=== PATIENT | male | born 1995 | race Hispanic/Latino ===

== ENCOUNTER 2018-03-15 20:54 | Inpatient (IN) | payer SELFPAY ==
[2018-03-15 22:03] LABS: Absolute Lymphocytes (CBC) 2.7 K/uL (0.7-4.9); Absolute Monocytes 1.2 K/uL (0.1-1.3); Absolute Neutrophil 17.8 K/uL (1.8-8.0); Basophils % 1.3 % (0-1.3); Eosinophils % 0.6 % (0-4.4); Hematocrit 45.7 % (39.6-49.0); Lymphocytes % 12.2 % (15.3-44.8); MPV 10.5 fL (7.6-11.3); Monocytes % 5.6 % (3.3-12.3); RBC Red Blood Cell Count 5.72 M/uL (4.33-5.43)
[2018-03-15] MEDS ORDERED: NA CHLORIDE 0.9% 1,000 ML ONE ×2 (22:03→23:31)
[2018-03-15] MEDS ORDERED: FAMOTIDINE 20 MG/2 ML VIAL IV ONE (22:03)
[2018-03-15 22:18] LABS: Protime INR 1.15
[2018-03-15 22:32] LABS: ALT/SGPT 49 U/L (12-78); AST/SGOT 27 U/L (15-37); Albumin 2.7 g/dL (3.4-5.0); Alkaline Phosphatase 163 U/L (45-117); BUN Blood Urea Nitrogen 12 mg/dL (7-18); Bilirubin Direct 0.1 mg/dL (0-0.2); Bilirubin Total 0.5 mg/dL (0.2-1.0); Lipase 294 U/L (73-393); Magnesium 2.2 mg/dL (1.8-2.4); Potassium 4.3 mmol/L (3.5-5.1); Protein, Total 8.9 g/dL (6.4-8.2); Sodium Level 129 mmol/L (136-145); Troponin (Emerg Dept Use Only) < 0.02 ng/mL (0.0-0.045)
[2018-03-15 22:33] LABS: Bicarbonate 14 mmol/L (21-32); Glucose Level 418 mg/dL (74-106)
[2018-03-15 22:41] LABS: Blood Morphology Comment NOT SEEN (NOT SEEN); Platelet Estimate ADEQ
[2018-03-15 22:57] LABS: Urine Blood 2+ (NEG); Urine Glucose 2+ (NEG); Urine Protein 3+ (NEG)
[2018-03-15 23:17] LABS: Arterial Blood Carboxyhemoglob 1.3 % (0-1.5); Blood Gas Oxyhemoglobin 94.4 % (94-97); Blood O2 Saturation 97.1 % (92-98.5)
--- NOTE | 2018-03-15 23:54 | ER ---
Nurse's Notes [facility] Department Name: Vijay Law Age: 22 yrs Sex: Male : 1995 Arrival Date: 03/15/2018 Time: 20:55 Bed 14 Private MD: Diagnosis: Diabetic Ketoacidosis Presentation: 03/15 21:12 Presenting complaint: Patient states: Epigastric pain with N/V since Monday. aj Transition of care: patient was not received from another setting of care. Onset of symptoms was March 11, 2018. Risk Assessment: Do you want to hurt yourself or someone else? Patient reports no desire to harm self or others. Initial Sepsis Screen: Does the patient meet any 2 criteria? No. Patient's initial sepsis screen is negative. Does the patient have a suspected source of infection? No. Patient's initial sepsis screen is negative. Care prior to arrival: None. 21:12 Method Of Arrival: Ambulatory aj 21:12 Acuity: SUYAPA 3 aj Triage Assessment: 21:13 General: Appears in no apparent distress. comfortable, obese, Behavior is calm, aj cooperative, appropriate for age. Pain: Complains of pain in epigastric area. Neuro: Level of Consciousness is awake, alert, obeys commands, Oriented to person, place, time, situation, Appropriate for age. Respiratory: Airway is patent Trachea midline Respiratory effort is even, unlabored, Respiratory pattern is regular, symmetrical. GI: Abdomen is obese. Derm: Skin is intact, is healthy with good turgor, Skin is pink, warm \T\ dry. normal. Historical: - Allergies: 21:13 No Known Allergies; aj - Home Meds: 21:13 None [Active]; aj - PMHx: 21:13 None; aj - PSHx: 21:13 None; aj - Immunization history:: Adult Immunizations up to date. - Social history:: Smoking status: Patient/guardian denies using tobacco. - Ebola Screening: : Patient negative for fever greater than or equal to 101.5 degrees Fahrenheit, and additional compatible Ebola Virus Disease symptoms Patient denies exposure to infectious person Patient denies travel to an Ebola-affected area in the 21 days before illness onset No symptoms or risks identified at this time. Screenin:06 Abuse screen: Denies threats or abuse. Denies injuries from another. Nutritional rr5 screening: No deficits noted. On. Tuberculosis screening: No symptoms or risk factors identified. Fall Risk IV access (20 points). Total Garza Fall Scale indicates No Risk (0-24 pts). Assessment: 21:40 General: Appears in no apparent distress. comfortable, Behavior is calm, cooperative, rr5 appropriate for age. Pain: Complains of pain in epigastric area Pain does not radiate. Pain currently is 5 out of 10 on a pain scale. Quality of pain is described as aching, Pain began gradually, Is intermittent. 21:40 Neuro: Level of Consciousness is awake, alert, obeys commands, Oriented to person, rr5 place, time, situation, Appropriate for age. Cardiovascular: Capillary refill < 3 seconds Patient's skin is warm and dry. Respiratory: Airway is patent Respiratory effort is even, unlabored, Respiratory pattern is regular, symmetrical. GI: Bowel sounds present X 4 quads. Abd is soft and non tender X 4 quads. Reports upper abdominal pain, nausea, vomiting, epigastric pain. : No signs and/or symptoms were reported regarding the genitourinary system. EENT: No signs and/or symptoms were reported regarding the EENT system. Derm: Skin is intact, Skin temperature is warm. Musculoskeletal: Capillary refill < 3 seconds, Range of motion: intact in all extremities. 23:45 Reassessment: Patient appears in no apparent distress at this time. Patient and/or rr5 family updated on plan of care and expected duration. Pain level reassessed. informed the patient for the plan of admission and medications to be given. 03/16 00:30 Reassessment: Patient appears in no apparent distress at this time. Patient and/or rr5 family updated on plan of care and expected duration. Pain level reassessed. seen and examined by dr. jiménez with order and carried out. 01:30 Reassessment: Patient appears in no apparent distress at this time. Patient and/or rr5 family updated on plan of care and expected duration. Pain level reassessed. no complaints made for shifting to ICU bed 6 Patient states feeling better. Patient states symptoms have improved. Vital Signs: 03/15 21:13 BP 159 / 95; Pulse 136; Resp 20; Temp 98.4; Pulse Ox 98% on R/A; Weight 152.86 kg; aj Height 5 ft. 10 in. (177.80 cm); 22:00 BP 157 / 100; Pulse 124; Resp 20; Pulse Ox 99% ; rr5 23:00 BP 154 / 109; Pulse 112; Resp 21; Pulse Ox 98% ; rr5 03/16 00:00 BP 142 / 76; Pulse 112; Resp 16; Pulse Ox 99% ; rr5 01:00 BP 138 / 80; Pulse 116; Resp 20; Temp 97.9; Pulse Ox 100% ; rr5 03/15 21:13 Body Mass Index 48.35 (152.86 kg, 177.80 cm) ED Course: 03/15 20:55 Patient arrived in ED. am2 21:12 Triage completed. aj 21:13 Arm band placed on left wrist. Patient placed in an exam room. aj 21:16 Huber Quiroga NP is PHCP. pm1 21:16 Garrison Terry MD is Attending Physician. pm1 21:18 Abran Portillo, CECY is Primary Nurse. rr5 21:40 Patient has correct armband on for positive identification. Placed in gown. Bed in low rr5 position. Call light in reach. Side rails up X 1. Pulse ox on. NIBP on. 21:57 Radiology exam delayed due to lab results not completed at this time. (BUN/Creatinine). vm2 22:00 color television console monitor on. rr5 22:00 Inserted saline lock: 20 gauge in right forearm, using aseptic technique. Blood rr5 collected. 22:15 Radiology exam delayed due to lab results not completed at this time. (BUN/Creatinine). ny 22:18 Notified Nurse Practitioner and/or Physician Business Process Manager of a critical lab result(s), wbc fc of 22.2. 22:20 Radiology exam delayed due to lab results not completed at this time. (BUN/Creatinine). 2 22:32 XRAY Chest (1 view) In Process Unspecified. EDMS 22:32 Radiology exam delayed due to lab results not completed at this time. (BUN/Creatinine). 22:32 Notified Nurse Practitioner and/or Physician Business Process Manager of a critical lab result(s), fc bicarb of 14, glucose of 418. 22:38 US Abdomen Limited In Process Unspecified. EDMS 22:[address] via wheelchair. sj 22:54 CT completed. Patient tolerated procedure well. Patient moved back from CT. sj 22:54 CT Abd/Pelvis - W/Contrast: IV contrast only In Process Unspecified. EDMS 23:22 ABG Sent. rr5 23:50 Amarjit Soliman MD is Hospitalizing Provider. pm1 03/16 01:15 No provider procedures requiring assistance completed. Patient admitted, IV remains in rr5 place. intact. Administered Medications: 03/15 22:00 Drug: NS 0.9% 1000 ml Route: IV; Rate: 1000 ml; Site: right forearm; rr5 23:30 Follow up: Response: No adverse reaction; IV Status: Completed infusion; IV Intake: rr5 1000ml 22:01 Drug: Pepcid 20 mg Route: IVP; Site: right forearm; rr5 23:12 Follow up: Response: No adverse reaction rr5 23:40 Drug: NS 0.9% 1000 ml Route: IV; Rate: 1000 ml; Site: right forearm; rr5 03/16 00:40 Follow up: Response: No adverse reaction; IV Status: Completed infusion; IV Intake: rr5 1000ml 00:00 Drug: Insulin Drip - (Insulin Regular Human 100 units, NS 0.9% 100 ml) {Co-Signature: rr5 jd3 (Sharath Quinn RN).} {Note: CBG 318 mg/dl.} Route: IV; Rate: 5 units/hr; Site: right forearm; 01:16 Follow up: Response: No adverse reaction; IV Status: Completed infusion; Infusion rr5 continued upon admission 00:40 Drug: D5-1/2 NS 1000 ml Route: IV; Rate: 150 ml/hr; Site: right forearm; rr5 01:15 Follow up: Response: No adverse reaction; IV Status: Infusion continued upon admission rr5 Point of Care Testing: Blood Glucose: 00:00 Blood Glucose: 318 mg/dL; rr5 00:30 Blood Glucose: 308 mg/dL; rr5 01:00 Blood Glucose: 288 mg/dL; rr5 00:30 informed with order made and carried out. rr5 Ranges: Intake: 03/15 23:30 IV: 1000ml; Total: 1000ml. rr5 03/16 00:40 IV: 1000ml; Total: 2000ml. rr5 01:40 urine output 4x voided freely from 2112 to 139H rr5 Outcome: 03/15 23:53 Decision to Hospitalize by Provider. pm1 03/16 01:10 Admitted to ICU accompanied by nurse, accompanied by tech, via stretcher, room 6, on rr5 monitor, with chart, Report called to shu SAM 01:30 Condition: stable rr5 01:30 Instructed on the need for admit. 01:44 Patient left the ED. rr5 Signatures: Dispatcher [employer] EDMS Tamika Beasley, CECY RN Daphne Watkins Felicia, RN RN Huber Quiroga NP [employer] pm1 Spenser Mendez Amanda am2 Emily Rivera Raymond, RN RN rr5 Sharath Quinn RN jd3 Corrections: (The following items were deleted from the chart) 00:40 03/15 00:40 NS 0.9% 1000 ml IV at 1000 ml in right forearm rr5 rr5
--- NOTE | 2018-03-15 23:55 | EDPHYS ---
Physician Documentation [facility] Name: Vijay Law Age: 22 yrs Sex: Male : 1995 Arrival Date: 03/15/2018 Time: 20:55 Bed 14 Private MD: ED Physician Garrison Teryr HPI: 03/15 22:00 This 22 yrs old Male presents to ER via Ambulatory with complaints of pm1 Abdominal Pain, Chest Pain. 22:00 The patient presents with abdominal pain in the epigastric area. Onset: The pm1 symptoms/episode began/occurred 6 day(s) ago. The symptoms do not radiate. Associated signs and symptoms: Pertinent positives: Vomiting x 1 and diarrhea x 1 at onset of symptoms on Monday, Pertinent negatives: fever, shortness of breath. The symptoms are described as burning. Modifying factors: The symptoms are alleviated by nothing, the symptoms are aggravated by food. Severity of pain: in the emergency department the pain is actually worse. The patient has not experienced similar symptoms in the past. The patient has not recently seen a physician, and does not have an established primary care provider. Historical: - Allergies: 21:13 No Known Allergies; aj - Home Meds: 21:13 None [Active]; aj - PMHx: 21:13 None; aj - PSHx: 21:13 None; aj - Immunization history:: Adult Immunizations up to date. - Social history:: Smoking status: Patient/guardian denies using tobacco. - Ebola Screening: : Patient negative for fever greater than or equal to 101.5 degrees Fahrenheit, and additional compatible Ebola Virus Disease symptoms Patient denies exposure to infectious person Patient denies travel to an Ebola-affected area in the 21 days before illness onset No symptoms or risks identified at this time. ROS: 22:00 Constitutional: Negative for fever, chills, and weight loss, Eyes: Negative for injury, pm1 pain, redness, and discharge, ENT: Negative for injury, pain, and discharge, Neck: Negative for injury, pain, and swelling, Cardiovascular: Negative for chest pain, palpitations, and edema, Respiratory: Negative for shortness of breath, cough, wheezing, and pleuritic chest pain. 22:00 Back: Negative for injury and pain, : Negative for injury, bleeding, discharge, and swelling, MS/Extremity: Negative for injury and deformity, Skin: Negative for injury, rash, and discoloration, Neuro: Negative for headache, weakness, numbness, tingling, and seizure. 22:00 Abdomen/GI: Positive for abdominal pain, of the epigastric area, Negative for nausea, vomiting, and diarrhea. Exam: 22:00 Constitutional: This is a well developed, well nourished patient who is awake, alert, pm1 and in no acute distress. Head/Face: Normocephalic, atraumatic. Eyes: Pupils equal round and reactive to light, extra-ocular motions intact. Lids and lashes normal. Conjunctiva and sclera are non-icteric and not injected. Cornea within normal limits. Periorbital areas with no swelling, redness, or edema. ENT: Nares patent. No nasal discharge, no septal abnormalities noted. Tympanic membranes are normal and external auditory canals are clear. Oropharynx with no redness, swelling, or masses, exudates, or evidence of obstruction, uvula midline. Mucous membranes moist. Neck: Trachea midline, no thyromegaly or masses palpated, and no cervical lymphadenopathy. Supple, full range of motion without nuchal rigidity, or vertebral point tenderness. No Meningismus. Chest/axilla: Normal chest wall appearance and motion. Nontender with no deformity. No lesions are appreciated. Respiratory: Lungs have equal breath sounds bilaterally, clear to auscultation and percussion. No rales, rhonchi or wheezes noted. No increased work of breathing, no retractions or nasal flaring. 22:00 Back: No spinal tenderness. No costovertebral tenderness. Full range of motion. 22:00 Skin: Warm, dry with normal turgor. Normal color with no rashes, no lesions, and no evidence of cellulitis. MS/ Extremity: Pulses equal, no cyanosis. Neurovascular intact. Full, normal range of motion. 22:00 Cardiovascular: Rate: tachycardic, Rhythm: regular, Pulses: no pulse deficits are appreciated, Heart sounds: normal, normal S1and S2, no S3 or S4, no murmur, no rub, no gallop, Edema: is not appreciated. 22:00 Abdomen/GI: Inspection: obese Bowel sounds: Palpation: soft, mild abdominal tenderness, in the epigastric area, mass, is not appreciated, rebound tenderness, is not appreciated. 22:00 Neuro: Orientation: is normal, Motor: is normal. Vital Signs: 21:13 BP 159 / 95; Pulse 136; Resp 20; Temp 98.4; Pulse Ox 98% on R/A; Weight 152.86 kg; aj Height 5 ft. 10 in. (177.80 cm); 22:00 BP 157 / 100; Pulse 124; Resp 20; Pulse Ox 99% ; rr5 23:00 BP 154 / 109; Pulse 112; Resp 21; Pulse Ox 98% ; rr5 03/16 00:00 BP 142 / 76; Pulse 112; Resp 16; Pulse Ox 99% ; rr5 01:00 BP 138 / 80; Pulse 116; Resp 20; Temp 97.9; Pulse Ox 100% ; rr5 03/15 21:13 Body Mass Index 48.35 (152.86 kg, 177.80 cm) aj MDM: 03/15 21:18 Patient medically screened. pm1 21:39 Data reviewed: vital signs. Data interpreted: Pulse oximetry: on room air is 98 %. pm1 Interpretation: normal. 23:43 Counseling: I had a detailed discussion with the patient and/or guardian regarding: the pm1 historical points, exam findings, and any diagnostic results supporting the discharge/admit diagnosis, lab results, radiology results, the need for further work-up and treatment in the hospital. 03/15 21:41 Order name: Basic Metabolic Panel; Complete Time: 22:44 pm1 03/15 21:41 Order name: CBC with Diff; Complete Time: 22:44 pm1 03/15 21:41 Order name: LFT's; Complete Time: 22:44 pm03/15 21:41 Order name: Magnesium; Complete Time: 22:44 pm03/15 21:41 Order name: PT-INR; Complete Time: 22:20 pm1 03/15 21:41 Order name: Troponin (emerg Dept Use Only); Complete Time: 22:44 pm03/15 21:41 Order name: XRAY Chest (1 view) pm03/15 21:41 Order name: Lipase; Complete Time: 22:44 pm1 03/15 21:41 Order name: CT Abd/Pelvis - W/Contrast: IV contrast only pm1 03/15 22:05 Order name: Urine Dipstick--Ancillary (enter results); Complete Time: 23:12 gm 03/15 22:19 Order name: Manual Differential; Complete Time: 22:44 EDMS 03/15 22:20 Order name: US Abdomen Limited pm1 03/15 22:42 Order name: ABG; Complete Time: 23:40 fc 03/15 23:12 Order name: Ketone, Serum; Complete Time: 03:22 pm1 03/15 21:41 Order name: EKG; Complete Time: 21:43 pm1 03/15 21:41 Order name: Cardiac monitoring; Complete Time: 22:04 pm1 03/15 21:41 Order name: EKG - Nurse/Tech; Complete Time: 22:04 pm1 03/15 21:41 Order name: IV Saline Lock; Complete Time: 22:04 pm1 03/15 21:41 Order name: Labs collected and sent; Complete Time: 22:04 pm1 03/15 21:41 Order name: O2 Per Protocol; Complete Time: 22:04 pm1 03/15 21:41 Order name: O2 Sat Monitoring; Complete Time: 22:05 pm1 Administered Medications: 22:00 Drug: NS 0.9% 1000 ml Route: IV; Rate: 1000 ml; Site: right forearm; rr5 23:30 Follow up: Response: No adverse reaction; IV Status: Completed infusion; IV Intake: rr5 1000ml 22:01 Drug: Pepcid 20 mg Route: IVP; Site: right forearm; rr5 23:12 Follow up: Response: No adverse reaction rr5 23:40 Drug: NS 0.9% 1000 ml Route: IV; Rate: 1000 ml; Site: right forearm; rr5 03/16 00:40 Follow up: Response: No adverse reaction; IV Status: Completed infusion; IV Intake: rr5 1000ml 00:00 Drug: Insulin Drip - (Insulin Regular Human 100 units, NS 0.9% 100 ml) {Co-Signature: rr5 jd3 (Sharath Quinn RN).} {Note: CBG 318 mg/dl.} Route: IV; Rate: 5 units/hr; Site: right forearm; 01:16 Follow up: Response: No adverse reaction; IV Status: Completed infusion; Infusion rr5 continued upon admission 00:40 Drug: D5-1/2 NS 1000 ml Route: IV; Rate: 150 ml/hr; Site: right forearm; rr5 01:15 Follow up: Response: No adverse reaction; IV Status: Infusion continued upon admission rr5 Point of Care Testing: Blood Glucose: 00:00 Blood Glucose: 318 mg/dL; rr5 00:30 Blood Glucose: 308 mg/dL; rr5 01:00 Blood Glucose: 288 mg/dL; rr5 00:30 informed with order made and carried out. rr5 Ranges: Critical Glucose Levels:Adult <50 mg/dl or >400 mg/dl <40 mg/dl or >180 mg/dl Disposition: 02:07 Co-signature as Attending Physician, Garrison Terry MD I agree with the assessment and wa plan of care. Disposition: 03/15/18 23:53 Hospitalization ordered by Amarjit Soliman for Inpatient Admission. Preliminary diagnosis is Diabetic Ketoacidosis. - Bed requested for Intensive Care Unit. - Status is Inpatient Admission. rr5 - Condition is Stable. - Problem is new. - Symptoms have improved. UTI on Admission? No Signatures: Dispatcher [employer] EDMS Ksenia Duckworth RN RN kl Myers, Amanda, RN RN aj Marinas, Patrick, NP [employer] pm1 Garrison Terry MD MD wa Roque, Raymond, RN RN rr5 Sharath Quinn RN jd3 Corrections: (The following items were deleted from the chart) 03/15 23:54 23:53 Hospitalization Ordered by Amarjit Soliman MD for Inpatient Admission. Preliminary pm1 diagnosis is Diabetic Ketoacidosis. Bed requested for Telemetry/MedSurg (Inpatient). Status is Inpatient Admission. Condition is Stable. Problem is new. Symptoms have improved. UTI on Admission? No. pm1 03/16 00:44 03/15 23:54 03/15/2018 23:53 Hospitalization Ordered by Amarjit Soliman MD for Inpatient kl Admission. Preliminary diagnosis is Diabetic Ketoacidosis. Bed requested for Intensive Care Unit. Status is Inpatient Admission. Condition is Stable. Problem is new. Symptoms have improved. UTI on Admission? No. pm1 03/16 01:44 00:44 03/15/2018 23:53 Hospitalization Ordered by Amarjit Soliman MD for Inpatient rr5 Admission. Preliminary diagnosis is Diabetic Ketoacidosis. Bed requested for Intensive Care Unit. Status is Inpatient Admission. Condition is Stable. Problem is new. Symptoms have improved. UTI on Admission? No. kl
[2018-03-16] MEDS ORDERED: INSULIN -REGULAR HUMAN 50 UNIT/0.5 ML ML ONE (00:01)
[2018-03-16] MEDS ORDERED: NA CHLORIDE 0.9% 100 ML IV ONE (00:02)
[2018-03-16] MEDS ORDERED: D5 0.45 NS 1,000 ML IV ONE (00:38)
[2018-03-16] MEDS: D5 0.45 NS 1,000 ML IV SCH ×4 (01:25→18:59)
[2018-03-16] MEDS ORDERED: ONDANSETRON 4 MG/2 ML VIAL IV PRN (01:25)
[2018-03-16 02:44] LABS: BUN Blood Urea Nitrogen 11 mg/dL (7-18); Bicarbonate 15 mmol/L (21-32); Glucose Level 310 mg/dL (74-106); Potassium 3.8 mmol/L (3.5-5.1); Sodium Level 135 mmol/L (136-145)
--- NOTE | 2018-03-16 03:50 | P.HP ---
Certification for Inpatient Patient admitted to: Inpatient With expected LOS: >2 Midnights Practitioner: I am a practitioner with admitting privileges, knowledge of patient current condition, hospital course, and medical plan of care. Services: Services provided to patient in accordance with Admission requirements found in Title 42 Section 412.3 of the Code of Federal Regulations Patient History Date of Service: 03/16/18 Reason for admission: DKA History of Present Illness: Mr Law is a 22 years old male with history of morbid obesity, uncontrolled diabetes mellitus, admitted 1 year ago due to DKA, not on current diabetic treatment, who start about 4 days ago with abdominal pain, localized on epigastric area, 6/10 of intensity, no radiated. Since this morning, his symptoms got worse, and he start having nausea, vomiting and diarrhea associated with the pain. He denied fever or chills. Lab work remarkable for hyperglycemia, hyponatremia, low bicarb, ABG shows metabolic acidosis with anion gap of 18, consitent with DKA. He denied chest pain or SOB. CT abd/pelvis report acute pancreatitis, however, lipase in normal. Allergies No Known Allergies Allergy (Verified 02/23/17 17:46) Home medications list reviewed: Yes Home Medications: NK [No Home Meds] 03/16/18 - Past Medical/Surgical History Has patient received pneumonia vaccine in the past: No Diabetic: Yes -: hypothyroid, has not been on medicine for 4 1/2 years -: was hospitalized 02/2017 for hyperglycemia, quit taking insulin per his MD -: DM II -: obesity Past Surgical History: Reviewed- Non-Contributory - Family History Family History: Reviewed- Non-Contributory - Social History Smoking Status: Never smoker Alcohol use: No CD- Drugs: No Caffeine use: Yes Place of Residence: Home Review of Systems 10-point ROS is otherwise unremarkable Physical Examination - Vital Signs Temperature: 97.9 F Blood Pressure: 137/85 Pulse: 120 Respirations: 25 Pulse Ox (%): 96 - Physical Exam General: Alert, In no apparent distress HEENT: Atraumatic, PERRLA, Mucous membr. moist/pink, EOMI, Sclerae nonicteric Neck: Supple, 2+ carotid pulse no bruit, No LAD, Without JVD or thyroid abnormality Respiratory: Clear to auscultation bilaterally, Normal air movement Cardiovascular: Regular rate/rhythm, Normal S1 S2 Gastrointestinal: Normal bowel sounds, No tenderness Musculoskeletal: No tenderness Integumentary: No rashes Neurological: Normal speech, Normal strength at 5/5 x4 extr, Normal tone, Normal affect Lymphatics: No axilla or inguinal lymphadenopathy - Studies Laboratory Data (last 24 hrs) 03/15/18 21:50: PT 13.6 H, INR 1.15 03/15/18 21:50: WBC 22.2 H*, Hgb 14.5, Hct 45.7, Plt Count 315 03/15/18 21:50: Sodium 129 L, Potassium 4.3, BUN 12, Creatinine 0.97, Glucose 418 H*, Magnesium 2.2, Total Bilirubin 0.5, AST 27, ALT 49, Alkaline Phosphatase 163 H, Lipase 294 Assessment and Plan - Problems (Diagnosis) (1) Diabetes mellitus Current Visit: Yes Status: Acute Qualifiers: Diabetes mellitus type: type 2 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 Diabetes mellitus complication status: with ketoacidosis Diabetes mellitus complication detail: without coma Qualified Code(s): E11.10 - Type 2 diabetes mellitus with ketoacidosis without coma (2) Morbid obesity Current Visit: Yes Status: Acute (3) Hyponatremia Current Visit: Yes Status: Acute (4) Diabetic ketoacidosis Onset Date: 02/24/17 Current Visit: No Status: Acute Qualifiers: Diabetes mellitus type: type 2 Diabetes mellitus complication detail: without coma Qualified Code(s): E11.10 - Type 2 diabetes mellitus with ketoacidosis without coma - Plan The patient will be admitted to the hospital due to DKA. He is not compliant with diabetic treatment. Possible underlying pancreatitis according to CT abd/ pelvis report, however, normal Lipase. Will check pancreatic enzymes again in AM. Continue IV fluids and IV insulin per DKA protocol. Check Hgba1c. Consult dietitian. - Advance Directives Does patient have a Living Will: No Does patient have a Durable POA for Healthcare: No - Code Status/Comfort Care Code Status Assessed: Yes Code Status: Full Code
[2018-03-16 05:52] LABS: Urine Appearance CLEAR; Urine Blood TRACE (NEG); Urine Color YELLOW; Urine Glucose 3+ (NEG); Urine Protein 1+ (NEG); Urine Specific Gravity >=1.030 (1.005-1.030); Urine Urobilinogen 0.2 mg/dL (0.2-1.0); Urine pH 5.5 (5.0-7.0)
[2018-03-16 06:03] LABS: Urine Bilirubin NEGATIVE (NEG); Urine Microscopic Reflex ORDER UMIC
[2018-03-16 06:09] LABS: Urine Coarse Granular Casts 0-5 /LPF (NONE SEEN)
[2018-03-16 06:10] LABS: Urine Bacteria <20 /HPF (NONE SEEN); Urine RBC <5 /HPF (NONE SEEN)
[2018-03-16 06:11] LABS: Urine Culture Reflex Order NOT NEEDED
[2018-03-16 06:44] LABS: Amylase Level 27 U/L (25-115); BUN Blood Urea Nitrogen 8 mg/dL (7-18); Bicarbonate 18 mmol/L (21-32); Glucose Level 274 mg/dL (74-106); HDL Cholesterol 11 mg/dL (40-60); LDL Cholesterol, Calculated ND (<130); Lipase 280 U/L (73-393); Potassium 3.7 mmol/L (3.5-5.1); Sodium Level 135 mmol/L (136-145)
[2018-03-16 06:59] LABS: LDL, Direct 94 mg/dL (100-129)
[2018-03-16] MEDS ORDERED: HYDRALAZINE HCL 20 MG/ML VIAL IV PRN (07:11)
--- NOTE | 2018-03-16 07:45 | RAD REPORT ---
EXAM DESCRIPTION: CT - Abdomen Pelvis W Contrast - 03/15/2018 10:54 pm CLINICAL HISTORY: Abdominal pain/epigastric pain with vomiting COMPARISON: none. TECHNIQUE: Computed axial tomography of the abdomen pelvis was obtained. 100 cc Isovue-300 was admin istered intravenously. Oral contrast was not requested which limits evaluation of bowel. A preliminary report generated by [employer] radiologic and review prior to dictation All CT scans are performed using dose optimization technique as appropriate and may include automated exposure control or mA/KV adjustment according to patient size. FINDINGS: Liver is mildly enlarged with fatty infiltration Spleen, adrenals and kidneys appear unremarkable. The pancreas is normal size. Mildly diminished density is seen within the pancreatic body. Moderate s tranding is present within the peripancreatic fat. Stranding extends into the greater omentum. Pseudo cyst is not seen. There is no evidence of diverticulitis. Appendix is normal Small umbilical hernia IMPRESSION: Moderate pancreatitis
--- NOTE | 2018-03-16 07:46 | RAD REPORT ---
EXAM DESCRIPTION: Karri Single View03/15/2018 10:32 pm CLINICAL HISTORY: Chest pain COMPARISON: none FINDINGS: The lungs appear clear of acute infiltrate. The heart is normal size IMPRESSION: No acute abnormalities displayed
--- NOTE | 2018-03-16 07:47 | RAD REPORT ---
EXAM DESCRIPTION: US - Abdomen Exam Limited - 03/15/2018 10:39 pm CLINICAL HISTORY: Abdominal pain. COMPARISON: None. FINDINGS: The examination is somewhat limited secondary to body habitus The gallbladder wall is not thickened. A gallstone is not seen. The biliary tree is normal caliber. IMPRESSION: No gross gallbladder abnormality is displayed
[2018-03-16] MEDS: ENOXAPARIN 40 MG/0.4 ML SQ SCH (08:05)
--- NOTE | 2018-03-16 09:21 | P.PN ---
Subjective Date of Service: 03/16/18 Primary Care Provider: none Chief Complaint: DKA Subjective: Improving (Patient doing better. No significant abdominal pain, nausea and vomiting. Patient on insulin drip.) Physical Examination - Vital Signs Temperature: 98.1 F Blood Pressure: 133/88 Pulse: 110 Respirations: 22 Pulse Ox (%): 96 - Physical Exam General: Alert, In no apparent distress, Oriented x3, Cooperative HEENT: Atraumatic Neck: Supple Respiratory: Clear to auscultation bilaterally, Normal air movement Cardiovascular: Normal pulses, Regular rate/rhythm Gastrointestinal: Normal bowel sounds, Soft and benign, Non-distended, No tenderness, No masses, No rebound, No guarding Musculoskeletal: No erythema, No tenderness, No warmth Integumentary: No tenderness/swelling, No erythema, No warmth, No cyanosis Neurological: Normal speech, Normal strength at 5/5 x4 extr, Normal tone, Normal affect - Studies Laboratory Data (last 24 hrs) 03/15/18 21:50: PT 13.6 H, INR 1.15 03/15/18 21:50: WBC 22.2 H*, Hgb 14.5, Hct 45.7, Plt Count 315 03/15/18 21:50: Sodium 129 L, Potassium 4.3, BUN 12, Creatinine 0.97, Glucose 418 H*, Magnesium 2.2, Total Bilirubin 0.5, AST 27, ALT 49, Alkaline Phosphatase 163 H, Lipase 294 Medications List Reviewed: Yes Assessment & Plan Discharge Plan: Home Plan to discharge in: 24 Hours Physician Review Additional Text: Impression: Diabetic ketoacidosis with history of type 1 diabetes with noncompliance, A1c 12.1 Epigastric pain, nausea and vomiting secondary to acute Pancreatitis likely related to hypertriglyceridemia Obesity, BMI 49 Hyponatremia likely from dehydration Plan: Diabetic ketoacidosis with history of type 1 diabetes with noncompliance, A1c 12.1: Will continue with insulin drip. Will transition to subcu insulin once gap as close. Will continue with IV fluids. Will continue monitor closely. Patient reports noncompliance with insulin. Will have social media intern help with finding PCP for the patient. Will also have social media intern help in providing patient assistance program information so that the patient can continue with insulin at discharge. Will continue to reassess. Will monitor electrolytes closely. Anticipate discharge likely tomorrow. Epigastric pain, nausea and vomiting secondary to acute Pancreatitis likely related to hypertriglyceridemia: Lipase levels within normal range. CT scan and abdominal ultrasound reviewed. Patient without any significant abdominal pain, nausea and vomiting. Will recheck lipid panel at noontime. If significantly improved then will transition to subcu insulin. Patient will require fish oil and fenofibrate at discharge. Obesity, BMI 49: Will continue to address lifestyle modification education. Hyponatremia likely from dehydration: This has improved, will continue with IV fluids. Time Spent Managing Pts Care (In Minutes): 55
--- NOTE | 2018-03-16 09:39 | EKG ---
Test Date: 2018-03-15 Test Time: 21:57:47 Refinery Pipeline Operator: AER MEASUREMENT RESULTS: Intervals: Rate: 121 VT: 128 QRSD: 86 QT: 324 QTc: 460 [place]: P: 47 VT: 128 QRS: 29 T: 40 INTERPRETIVE STATEMENTS: Sinus tachycardia Otherwise normal ECG No previous ECG available for comparison Electronically Signed On 03-16-18 09:38:14 NATURAL SCIENCES PROFESSOR by Lan Summers
[2018-03-16 10:14] LABS: Absolute Monocytes 1.3 K/uL (0.1-1.3); Absolute Neutrophil 12.6 K/uL (1.8-8.0); Basophils % 1.4 % (0-1.3); Eosinophils % 2.4 % (0-4.4); Hematocrit 41.8 % (39.6-49.0); MPV 10.3 fL (7.6-11.3); Monocytes % 7.3 % (3.3-12.3); RBC Red Blood Cell Count 5.34 M/uL (4.33-5.43)
[2018-03-16] MEDS: NA CHLORIDE 0.9% 1,000 ML IV SCH ×3 (10:24→21:20)
[2018-03-16] MEDS: FAMOTIDINE 20 MG/2 ML VIAL IV SCH ×2 (10:25→20:49)
[2018-03-16 10:39] LABS: BUN Blood Urea Nitrogen 8 mg/dL (7-18); Bicarbonate 20 mmol/L (21-32); Glucose Level 206 mg/dL (74-106); Potassium 3.4 mmol/L (3.5-5.1); Sodium Level 136 mmol/L (136-145)
[2018-03-16 12:39] LABS: HDL Cholesterol 11 mg/dL (40-60); LDL Cholesterol, Calculated ND (<130)
[2018-03-16] MEDS ORDERED: KCL 20 MEQ/100 mL IVPB 20 MEQ/100 ML BAG IV SCH ×2 (13:00→18:00)
[2018-03-16 13:03] LABS: LDL, Direct 110 mg/dL (100-129)
[2018-03-16] MEDS: INSULIN -REGULAR HUMAN 100 UNIT in NA CHLORIDE 0.9% 100 ML IV SCH (14:23)
[2018-03-16 19:07] LABS: BUN Blood Urea Nitrogen 6 mg/dL (7-18); Bicarbonate 20 mmol/L (21-32); Glucose Level 252 mg/dL (74-106); HDL Cholesterol 12 mg/dL (40-60); LDL Cholesterol, Calculated ND (<130); Potassium 3.6 mmol/L (3.5-5.1); Sodium Level 136 mmol/L (136-145)
[2018-03-16 19:19] LABS: LDL, Direct 117 mg/dL (100-129)
[2018-03-17] MEDS: D5 0.45 NS 1,000 ML IV SCH (02:23)
[2018-03-17] MEDS: NA CHLORIDE 0.9% 1,000 ML IV SCH (04:00)
[2018-03-17] MEDS: INSULIN -REGULAR HUMAN 100 UNIT in NA CHLORIDE 0.9% 100 ML IV SCH (05:53)
[2018-03-17 06:23] LABS: Absolute Lymphocytes (CBC) 3.9 K/uL (0.7-4.9); Absolute Monocytes 1.3 K/uL (0.1-1.3); Absolute Neutrophil 11.2 K/uL (1.8-8.0); Basophils % 1.7 % (0-1.3); Eosinophils % 3.6 % (0-4.4); Hematocrit 38.9 % (39.6-49.0); Lymphocytes % 22.8 % (15.3-44.8); MPV 10.6 fL (7.6-11.3); Monocytes % 7.4 % (3.3-12.3); RBC Red Blood Cell Count 5.04 M/uL (4.33-5.43)
[2018-03-17 06:53] LABS: Amylase Level 54 U/L (25-115); HDL Cholesterol 14 mg/dL (40-60); LDL Cholesterol, Calculated ND (<130); Lipase 430 U/L (73-393)
[2018-03-17 06:59] LABS: Anisocytosis 1+; Blood Morphology Comment NOTED (NOT SEEN); Platelet Estimate ADEQ; Platelets, Giant FEW; Poikilocytosis 1+; Polychromasia 1+; Urine White Blood Cell Casts OK
[2018-03-17 07:25] LABS: LDL, Direct 134 mg/dL (100-129)
[2018-03-17] MEDS ORDERED: D50W 25 GM/50 ML SYRINGE IV PRN (07:34)
[2018-03-17] MEDS ORDERED: GLUCAGON 1 MG/VIAL IM PRN (07:34)
[2018-03-17 07:47] VITALS: BMI 48.9
[2018-03-17] MEDS: INSULIN GLARGINE 100 UNITS/ML SQ SCH (08:39)
[2018-03-17] MEDS: PANTOPRAZOLE 40MG TABLET PO SCH (08:39)
[2018-03-17] MEDS: ENOXAPARIN 40 MG/0.4 ML SQ SCH (08:39)
[2018-03-17] MEDS: FENOFIBRATE 48 MG TAB PO SCH (08:39)
[2018-03-17] MEDS: DOCOSAHEXANOIC AC/EPA 1000 MG PO SCH ×2 (08:43→20:58)
[2018-03-17] MEDS: NACHLORIDE 0.45% 1,000 ML IV SCH ×3 (08:46→20:58)
[2018-03-17] MEDS ORDERED: POTASSIUM CL SA 10 MEQ TAB PO ONE (09:00)
[2018-03-17] MEDS: INSULIN -REGULAR HUMAN 50 UNIT/0.5 ML ML SQ SCH ×4 (11:58→20:57)
--- NOTE | 2018-03-17 13:16 | P.PN ---
Subjective Date of Service: 03/17/18 Primary Care Provider: none Chief Complaint: DKA Subjective: Improving (Patient without abdominal pain, nausea and vomiting.) Physical Examination - Vital Signs Temperature: 97.6 F Blood Pressure: 139/89 Pulse: 109 Respirations: 18 Pulse Ox (%): 96 - Physical Exam General: Alert, In no apparent distress, Oriented x3, Cooperative HEENT: Atraumatic Neck: Supple Respiratory: Clear to auscultation bilaterally, Normal air movement Cardiovascular: Normal pulses, Regular rate/rhythm Gastrointestinal: Normal bowel sounds, Soft and benign, Non-distended, No tenderness, No masses, No rebound, No guarding Musculoskeletal: No erythema, No tenderness, No warmth Integumentary: No tenderness/swelling, No erythema, No warmth, No cyanosis Neurological: Normal speech, Normal strength at 5/5 x4 extr, Normal tone, Normal affect - Studies Medications List Reviewed: Yes Assessment & Plan Discharge Plan: Home Plan to discharge in: 24 Hours Physician Review Additional Text: Impression: Diabetic ketoacidosis with history of type 1 diabetes with noncompliance, A1c 12.1 Epigastric pain, nausea and vomiting secondary to acute Pancreatitis likely related to hypertriglyceridemia Obesity, BMI 49 Hyponatremia likely from dehydration Hypertension GERD Suspect obstructive sleep apnea Plan: Diabetic ketoacidosis with history of type 1 diabetes with noncompliance, A1c 12.1: Anion gap has closed. Patient improved. Will transition off insulin drip. Basal insulin-Lantus 20 units subcu to be started. Will place on a sliding scale. Will allow patient to eat. If significantly improved will transition patient from ICU to telemetry. Patient reports noncompliance with insulin in the past. Will have director social service help with finding PCP for the patient. Will also have director social service help in providing patient assistance program information so that the patient can continue with insulin at discharge. Anticipate discharge as early as tomorrow. I will turn the service over to Dr. Cardoza tomorrow. I will go over the plan of care with her. Epigastric pain, nausea and vomiting secondary to acute Pancreatitis likely related to hypertriglyceridemia: Triglyceride levels improved. Will start fish oil and fenofibrate. Will advance diet. This can be monitored closely as an outpatient. Obesity, BMI 49: Will continue to address lifestyle modification education. Hyponatremia likely from dehydration: This has improved, will continue with IV fluids and adjust. Hypertension: Will start low dose metoprolol. Will monitor and adjust appropriately. GERD: Will start medication-Protonix. Suspect obstructive sleep apnea: This can be further addressed as an outpatient. Patient will need sleep study. Time Spent Managing Pts Care (In Minutes): 55
[2018-03-17] MEDS: METOPROLOL TAR 25 MG TAB PO SCH (17:23)
[2018-03-18] MEDS: NACHLORIDE 0.45% 1,000 ML IV SCH ×2 (04:35→10:40)
[2018-03-18] MEDS: METOPROLOL TAR 25 MG TAB PO SCH (05:20)
[2018-03-18] MEDS: PANTOPRAZOLE 40MG TABLET PO SCH (05:20)
[2018-03-18 06:15] LABS: Absolute Lymphocytes (CBC) 4.1 K/uL (0.7-4.9); Absolute Monocytes 0.9 K/uL (0.1-1.3); Eosinophils % 3.5 % (0-4.4); Hematocrit 41.6 % (39.6-49.0); Lymphocytes % 30.1 % (15.3-44.8); Monocytes % 6.9 % (3.3-12.3); RBC Red Blood Cell Count 5.32 M/uL (4.33-5.43)
[2018-03-18 06:57] LABS: BUN Blood Urea Nitrogen 4 mg/dL (7-18); Bicarbonate 25 mmol/L (21-32); Glucose Level 205 mg/dL (74-106); Lipase 375 U/L (73-393); Sodium Level 138 mmol/L (136-145)
[2018-03-18 07:14] LABS: Potassium 2.9 mmol/L (3.5-5.1)
[2018-03-18] MEDS: ENOXAPARIN 40 MG/0.4 ML SQ SCH (09:11)
[2018-03-18] MEDS: FENOFIBRATE 48 MG TAB PO SCH (09:11)
[2018-03-18] MEDS: DOCOSAHEXANOIC AC/EPA 1000 MG PO SCH (09:11)
[2018-03-18] MEDS: INSULIN -REGULAR HUMAN 50 UNIT/0.5 ML ML SQ SCH ×2 (09:12→11:30)
[2018-03-18] MEDS: INSULIN GLARGINE 100 UNITS/ML SQ SCH (09:13)
[2018-03-18] MEDS: KCL 20 MEQ/100 mL IVPB 20 MEQ/100 ML BAG IV SCH ×2 (09:13→10:00)
[2018-03-18] MEDS ORDERED: POTASSIUM CL 40 MEQ in NA CHLORIDE 0.9% 500 ML IV SCH (11:00)
[2018-03-18] MEDS ORDERED: POTASSIUM CL SA 10 MEQ TAB PO ONE (12:15)
[2018-03-18 14:55] VITALS: O2SAT 95
--- NOTE | 2018-03-18 15:40 | P.DS ---
Admission Date: 03/16/18 Discharge Date: 03/18/18 Primary Care Provider: none Disposition: ROUTINE DISCHARGE Discharge Condition: GOOD Reason for Admission: DKA - Problems (1) Diabetic ketoacidosis Onset Date: 02/24/17 Current Visit: No Status: Acute Qualifiers: Diabetes mellitus type: type 2 Diabetes mellitus complication detail: without coma Qualified Code(s): E11.10 - Type 2 diabetes mellitus with ketoacidosis without coma (2) Diabetes mellitus Current Visit: Yes Status: Chronic Qualifiers: Diabetes mellitus type: type 2 Diabetes mellitus intermodal owner operator truck driver insulin use: without intermodal owner operator truck driver use Diabetes mellitus complication status: with ketoacidosis Diabetes mellitus complication detail: without coma Qualified Code(s): E11.10 - Type 2 diabetes mellitus with ketoacidosis without coma (3) Morbid obesity Current Visit: Yes Status: Chronic Brief History of Present Illness: Mr Law is a 22 years old male with history of morbid obesity, uncontrolled diabetes mellitus, admitted 1 year ago due to DKA, not on current diabetic treatment, who start about 4 days ago with abdominal pain, localized on epigastric area, 6/10 of intensity, no radiated. Since this morning, his symptoms got worse, and he start having nausea, vomiting and diarrhea associated with the pain. He denied fever or chills. Lab work remarkable for hyperglycemia, hyponatremia, low bicarb, ABG shows metabolic acidosis with anion gap of 18, consitent with DKA. He denied chest pain or SOB. CT abd/pelvis report acute pancreatitis, however, lipase in normal. Hospital Course: Overall during the hospital stay patient remained stable Patient was initially admitted to the hospital for BKA and was found to have acute pancreatitis as well. Patient was started on insulin drip and tolerating the drip well. Once the gap was closed and healing there is no acetone level noted in the urine. Insulin drip was discontinued and patient was transitioned to a long-acting insulin. Patient did well overall here in the hospital. Patient then was switched over to 10 units of Lantus in the a.m. along with metformin 500 mg b.i.d.. Patient was asked to continue taking this at home when discharged from here. Patient also was asked to establish primary care provider that could manage his he diabetes. A1c was measured here which was elevated here in the hospital. Patient was also started on beta-yana along with cholesterol medication to help with hypertriglyceridemia. Patient demonstrate understanding and thus was discharged home under stable condition. Vital Signs/Physical Exam: Temp Pulse Resp BP Pulse Ox 97.4 F 103 H 16 130/72 96 03/18/18 12:00 03/18/18 12:00 03/18/18 12:00 03/18/18 12:00 03/18/18 12:00 General: Alert, In no apparent distress HEENT: Atraumatic, PERRLA, EOMI Neck: Supple, JVD not distended Respiratory: Clear to auscultation bilaterally, Normal air movement Cardiovascular: Regular rate/rhythm, Normal S1 S2 Gastrointestinal: Normal bowel sounds, No tenderness Musculoskeletal: No tenderness Integumentary: No rashes Neurological: Normal speech, Normal tone, Normal affect Lymphatics: No axilla or inguinal lymphadenopathy Laboratory Data at Discharge: WBC 13.7 K/uL (4.3-10.9) H D 03/18/18 05:57 Hgb 13.7 g/dL (13.6-17.9) 03/18/18 05:57 Hct 41.6 % (39.6-49.0) 03/18/18 05:57 Plt Count 317 K/uL (152-406) 03/18/18 05:57 PT 13.6 SECONDS (9.5-12.5) H 03/15/18 21:50 INR 1.15 03/15/18 21:50 Sodium 138 mmol/L (136-145) 03/18/18 05:57 Potassium 3.2 mmol/L (3.5-5.1) L 03/18/18 14:40 BUN 4 mg/dL (7-18) L 03/18/18 05:57 Creatinine 0.67 mg/dL (0.55-1.3) 03/18/18 05:57 Glucose 205 mg/dL (74-106) H 03/18/18 05:57 Magnesium 2.0 mg/dL (1.8-2.4) 03/18/18 05:57 Total Bilirubin 0.5 mg/dL (0.2-1.0) 03/15/18 21:50 AST 27 U/L (15-37) 03/15/18 21:50 ALT 49 U/L (12-78) 03/15/18 21:50 Alkaline Phosphatase 163 U/L (45-117) H 03/15/18 21:50 Triglycerides 768 mg/dL (<150) H 03/17/18 05:57 Cholesterol 264 mg/dL (<200) H 03/17/18 05:57 LDL Cholesterol Direct 134 mg/dL (100-129) H 03/17/18 05:57 HDL Cholesterol 14 mg/dL (40-60) L 03/17/18 05:57 Cholesterol/HDL Ratio 18.86 03/17/18 05:57 Amylase 54 U/L (25-115) 03/17/18 05:57 Lipase 375 U/L (73-393) 03/18/18 05:57 Home Medications: Docosahexanoic AC/Epa [Fish Oil 1,000 MG*] 2,000 mg PO BID #60 cap 03/18/18 Fenofibrate [Tricor*] 48 mg PO DAILY #30 tab 03/18/18 Insulin Glargine Human [Lantus*] 10 units SQ DAILY WITH BREAKFAST #10 ml Metformin HCl 500 mg PO BID #60 tablet 03/18/18 Metoprolol Tartrate [Lopressor*] 12.5 mg PO BID 6AM 6PM #60 tab 03/18/18 New Medications: Docosahexanoic AC/Epa [Fish Oil 1,000 MG*] 2,000 mg PO BID #60 cap Fenofibrate [Tricor*] 48 mg PO DAILY #30 tab Insulin Glargine Human [Lantus*] 10 units SQ DAILY WITH BREAKFAST #10 ml Metformin HCl 500 mg PO BID #60 tablet Metoprolol Tartrate [Lopressor*] 12.5 mg PO BID 6AM 6PM #60 tab Patient Discharge Instructions: Please f.u with PCP 1 to 2 week post discharge. New medication. Metformin 500mg BID. Lantus 10units in AM daily. Metoprolol. Fish oil. Fenofibrate Diet: Regular Activity: Ad tulio Followup: Jono Cardoza, [ACTIVE - CAN ADMIT] - 1 Week
[2018-03-18 16:46] VITALS: BP 133/85; TEMP 96.9
== END 2018-03-18 17:00 | disposition home or self-care (01) | DRG 637 ==
LOC: ER 20:54 → ERHOLD 03-16 00:32 → 3RD-ICU 03-16 01:16 → 4TH 03-17 17:45
PROVIDERS: ADMIT Internal Medicine; ATTEND Family Medicine
DX: E10.10 Type 1 diabetes mellitus with ketoacidosis without coma (principal); K85.90 Acute pancreatitis without necrosis or infection, unspecified; E87.1 Hypo-osmolality and hyponatremia; E87.2 Acidosis; E66.01 Morbid (severe) obesity due to excess calories; Z91.14 Patient's other noncompliance with medication regimen; E78.1 Pure hyperglyceridemia; E86.0 Dehydration; R11.2 Nausea with vomiting, unspecified; E10.65 Type 1 diabetes mellitus with hyperglycemia; I10 Essential (primary) hypertension; K21.9 Gastro-esophageal reflux disease without esophagitis; G47.33 Obstructive sleep apnea (adult) (pediatric); Z79.84 Long term (current) use of oral hypoglycemic drugs; Z79.4 Long term (current) use of insulin
CPT/HCPCS: 36415; 71045; 74177; 76705; 80048; 80061; 80076; 81003; 81015; 82010; 82150; 82805; 82962; 83036; 83690; 83735; 84132; 84145; 84484; 85025; 85610; 87040; 93005; 96361; 96365; 96375; 99285; J1650; J7030; Q9967

== ENCOUNTER 2019-09-18 13:11 | Emergency (ER) | payer SELFPAY ==
[2019-09-18] MEDS ORDERED: NA CHLORIDE 0.9% 1,000 ML ONE ×2 (14:29→15:19)
[2019-09-18] MEDS ORDERED: INSULIN -REGULAR HUMAN 50 UNIT/0.5 ML ML ONE ×3 (14:29→17:20)
[2019-09-18 14:46] LABS: BUN Blood Urea Nitrogen 9 mg/dL (7-18); Bicarbonate 21 mmol/L (21-32); Glucose Level 357 mg/dL (74-106); Sodium Level 138 mmol/L (136-145)
[2019-09-18 14:47] LABS: Potassium 4.1 mmol/L (3.5-5.1)
[2019-09-18 14:49] LABS: Arterial Blood Carboxyhemoglob 0.9 % (0-1.5); Blood Gas Oxyhemoglobin 90.9 % (94-97); Blood O2 Saturation 94.4 % (92-98.5)
[2019-09-18 15:41] LABS: Absolute Lymphocytes (CBC) 4.1 K/uL (0.7-4.9); Basophils % 0.8 % (0-1.3); Hematocrit 46.7 % (39.6-49.0); Lymphocytes % 32.7 % (15.3-44.8); MPV 11.8 fL (7.6-11.3)
[2019-09-18 17:01] LABS: BUN Blood Urea Nitrogen 8 mg/dL (7-18); Bicarbonate 20 mmol/L (21-32); Glucose Level 308 mg/dL (74-106); Sodium Level 141 mmol/L (136-145)
[2019-09-18 17:02] LABS: Potassium 3.8 mmol/L (3.5-5.1)
--- NOTE | 2019-09-18 17:32 | ER ---
Nurse's Notes [facility] Name: Vijay Law Age: 24 yrs Sex: Male : 1995 Arrival Date: 09/18/2019 Time: 13:16 Bed 5 Private MD: Diagnosis: Hyperglycemia, unspecified;Dehydration Presentation: 09/17 13:24 Chief complaint: Patient states: IDDM diabetic, hasn't taken insulin in almost 2 years. ca1 Reports thyroid issues. Now, c/o increased thirst and urination, fatigued. Coronavirus screen: Proceed with normal triage. Patient denies a cough. Patient denies shortness of breath or difficulty breathing. Patient denies measured and/or subjective temperature greater than 100.4F prior to today's visit. Patient denies travel on a cruise ship or to a country the [facility] currently lists as an affected area. Patient denies contact with known and/or suspected case of COVID-19. Ebola Screen: Patient negative for fever greater than or equal to 101.5 degrees Fahrenheit, and additional compatible Ebola Virus Disease symptoms Patient denies exposure to infectious person. Patient denies travel to an Ebola-affected area in the 21 days before illness onset. No symptoms or risks identified at this time. Initial Sepsis Screen: Does the patient meet any 2 criteria? No. Patient's initial sepsis screen is negative. Does the patient have a suspected source of infection? No. Patient's initial sepsis screen is negative. Risk Assessment: Do you want to hurt yourself or someone else? Patient reports no desire to harm self or others. Onset of symptoms was September 18, 2019. 13:24 Method Of Arrival: Ambulatory ca1 13:24 Acuity: SUYAPA 2 ca1 Historical: - Allergies: 13:27 No Known Allergies; ca1 - Home Meds: 13:27 None [Active]; ca1 - PMHx: 13:27 Diabetes - IDDM; Thyroid problem; ca1 - PSHx: 13:27 None; ca1 - Immunization history:: Adult Immunizations up to date. - Social history:: Smoking status: Patient denies any tobacco usage or history of. - Family history:: not pertinent. - Hospitalizations: : No recent hospitalization is reported. Screenin:10 Abuse screen: Denies threats or abuse. Nutritional screening: No deficits noted. aa5 Tuberculosis screening: No symptoms or risk factors identified. Fall Risk None identified. Assessment: 14:10 General: Appears comfortable, Behavior is calm, cooperative. Pain: Denies pain. Neuro: aa5 Level of Consciousness is awake, alert, obeys commands, Oriented to person, place, time, situation. Cardiovascular: Heart tones S1 S2 present Rhythm is regular. Respiratory: Airway is patent Respiratory effort is even, unlabored, Respiratory pattern is regular, symmetrical, Denies cough, shortness of breath. GI: Abdomen is obese, Bowel sounds present X 4 quads. Abd is soft and non tender X 4 quads. Patient currently denies diarrhea, nausea, vomiting. : No signs and/or symptoms were reported regarding the genitourinary system. EENT: No signs and/or symptoms were reported regarding the EENT system. Derm: Skin is pink, warm \T\ dry. Musculoskeletal: Range of motion: intact in all extremities. 14:58 Reassessment: ABG completed by RT . aa5 16:36 Reassessment: Patient is alert, oriented x 3, equal unlabored respirations, skin aa5 warm/dry/pink. Repeat chem 7 drawn and sent to lab . 17:45 Reassessment: Patient is alert, oriented x 3, equal unlabored respirations, skin aa5 warm/dry/pink. Vital Signs: 13:24 BP 154 / 108; Pulse 115; Resp 18 S; Temp 98.1(TE); Pulse Ox 98% on R/A; Weight 136.98 ca1 kg (R); Height 5 ft. 10 in. (177.80 cm) (R); 14:35 BP 144 / 97; Pulse 103; Resp 18 S; Pulse Ox 96% on R/A; aa5 16:36 BP 139 / 97; Pulse 104; Resp 18 S; Pulse Ox 97% on R/A; aa5 17:40 BP 138 / 83; Pulse 98; Resp 16 S; Temp 98.0(TE); Pulse Ox 98% on R/A; Pain 0/10; aa5 13:24 Body Mass Index 43.33 (136.98 kg, 177.80 cm) ca1 ED Course: 13:16 Patient arrived in ED. ag5 13:27 Triage completed. ca1 13:27 Arm band placed on right wrist. ca1 14:03 Santosh John MD is Attending Physician. rn 14:05 Maday Christy, RN is Primary Nurse. aa5 14:15 Initial lab(s) drawn, by me, sent to lab. Inserted saline lock: 20 gauge in right aa5 antecubital area, using aseptic technique. Blood collected. 14:57 Patient has correct armband on for positive identification. Placed in gown. Bed in low mh5 position. Call light in reach. Side rails up X 1. Warm blanket given. quality assurance monitor chassis on. Pulse ox on. NIBP on. 14:57 EKG done, by ED staff, reviewed by Santosh John MD. 5 17:45 No provider procedures requiring assistance completed. IV discontinued, intact, aa5 bleeding controlled, No redness/swelling at site. Pressure dressing applied. Administered Medications: 14:30 Drug: NS 0.9% 1000 ml Route: IV; Rate: 1000 ml; Site: right antecubital; aa5 16:27 Follow up: IV Status: Completed infusion; IV Intake: 1000ml aa5 14:30 Drug: Insulin Regular Human 10 units {Co-Signature: bp (Jose Krishnan RN).} Route: aa5 Sub-Q; Site: left lower abdomen; 15:00 Follow up: Response: No adverse reaction aa5 15:10 Drug: NS 0.9% 1000 ml Route: IV; Rate: 1000 ml; Site: right antecubital; aa5 16:27 Follow up: IV Status: Completed infusion; IV Intake: 1000ml aa5 17:15 Drug: Insulin Regular Human 10 units {Co-Signature: aa5 (Maday Christy RN).} Route: bp Sub-Q; Site: left lower abdomen; 17:40 Follow up: Response: No adverse reaction aa5 Point of Care Testing: Blood Glucose: 13:33 Blood Glucose: 354 mg/dL; ca1 16:35 Blood Glucose: 279 mg/dL; aa5 Ranges: Intake: 16:27 IV: 1000ml; Total: 1000ml. aa5 16:27 IV: 1000ml; Total: 2000ml. aa5 Outcome: 17:32 Discharge ordered by . rn 17:45 Discharged to home ambulatory. aa5 17:45 Condition: stable 17:45 Discharge instructions given to patient, Instructed on discharge instructions, follow up and referral plans. medication usage, Demonstrated understanding of instructions, follow-up care, medications, Prescriptions given X 1. 17:47 Patient left the ED. aa5 Signatures: Santosh John MD MD rn Calderon, Audri, RN RN aa5 Lilian Hernandez [facility] Jose Krishnan RN RN bp Yesica Butler RN RN [facility] Latisha Holder [facility] Jose Krishnan RN bp Maday Christy RN aa5 Corrections: (The following items were deleted from the chart) 17:49 17:45 Discharge instructions given to patient, Instructed on discharge instructions, aa5 follow up and referral plans. medication usage, Demonstrated understanding of instructions, follow-up care, medications, Prescriptions given X 3, aa5
--- NOTE | 2019-09-18 17:32 | EDPHYS ---
Physician Documentation [facility] Name: Vijay Law Age: 24 yrs Sex: Male : 1995 Arrival Date: 09/18/2019 Time: 13:16 Bed 5 Private MD: ED Physician Santosh John HPI: 09/17 14:11 This 24 yrs old Male presents to ER via Ambulatory with complaints of High rn Blood Sugar. 14:11 The patient or guardian reports hyperglycemia. Onset: The symptoms/episode rn began/occurred at an unknown time. Current symptoms: In the emergency department the patient's symptoms are unchanged from the initial presentation. The patient has experienced similar episodes in the past. The patient has not recently seen a physician. Reports high blood sugar, for atleast 2 weeks, is supposed to be on insulin but unable to get appointment and/or afford insulin, reports symptoms similar to past when high blood sugar, has been trying to manage by staying away from sugar and only eating 1 meal per day. + fatigue and increased urination. NO nausea/vomiting. . Historical: - Allergies: 13:27 No Known Allergies; ca1 - Home Meds: 13:27 None [Active]; ca1 - PMHx: 13:27 Diabetes - IDDM; Thyroid problem; ca1 - PSHx: 13:27 None; ca1 - Immunization history:: Adult Immunizations up to date. - Social history:: Smoking status: Patient denies any tobacco usage or history of. - Family history:: not pertinent. - Hospitalizations: : No recent hospitalization is reported. ROS: 14:12 Constitutional: Negative for fever, chills, and weight loss, Eyes: Negative for injury, rn pain, redness, and discharge, Neck: Negative for injury, pain, and swelling, Cardiovascular: Negative for chest pain, palpitations, and edema, Respiratory: Negative for shortness of breath, cough, wheezing, and pleuritic chest pain, Abdomen/GI: Negative for abdominal pain, nausea, vomiting, diarrhea, and constipation, MS/Extremity: Negative for injury and deformity, Skin: Negative for injury, rash, and discoloration, Neuro: Negative for headache, numbness, tingling, and seizure, Endocrine: Negative for neck swelling, and marked weight changes. Exam: 14:12 Constitutional: Overweight male, no acute distress, ambulatory to room without rn assistance or difficulty. Head/Face: Normocephalic, atraumatic. Cardiovascular: tachycardic, regular Respiratory: Speaking full sentences. No increased work of breathing, no retractions or nasal flaring. Abdomen/GI: soft, non-tender Skin: Warm, dry MS/ Extremity: Pulses equal, no cyanosis. Neuro: Awake and alert, GCS 15 Vital Signs: 13:24 BP 154 / 108; Pulse 115; Resp 18 S; Temp 98.1(TE); Pulse Ox 98% on R/A; Weight 136.98 ca1 kg (R); Height 5 ft. 10 in. (177.80 cm) (R); 14:35 BP 144 / 97; Pulse 103; Resp 18 S; Pulse Ox 96% on R/A; aa5 16:36 BP 139 / 97; Pulse 104; Resp 18 S; Pulse Ox 97% on R/A; aa5 17:40 BP 138 / 83; Pulse 98; Resp 16 S; Temp 98.0(TE); Pulse Ox 98% on R/A; Pain 0/10; aa5 13:24 Body Mass Index 43.33 (136.98 kg, 177.80 cm) ca1 MDM: 14:03 Patient medically screened. rn 17:14 Differential diagnosis: DKA, hyperglycemia, dehydration. Data reviewed: vital signs, rn nurses notes. Counseling: I had a detailed discussion with the patient and/or guardian regarding: the historical points, exam findings, and any diagnostic results supporting the discharge/admit diagnosis, lab results, the need for outpatient follow up, to return to the emergency department if symptoms worsen or persist or if there are any questions or concerns that arise at home. Response to treatment: the patient's symptoms have mildly improved after treatment, and as a result, I will discharge patient. ED course: ABG without acidosis, no AG, + hyperglycemia with dehydration, repeat BMP dropped 1 point on bicarb but also given 2 liters NS. [place] snot meet DKA diagnostic criteria at this point, will give more insulin, dc home with metformin given may not need insulin given fact that has been without insulin for 2 years and has only been to hospital twice in those 2 years for diabetic emergency. After long discussion with patient, will dc home with metformin as he used to be on it, and is more easily affordable. Will f/u with pcp for further diabetic management and return precautions given and understood. . 09/17 13:44 Order name: Glucose, Ancillary Testing; Complete Time: 14:04 EDMS 09/17 14:05 Order name: CBC with Diff; Complete Time: 15:53 rn 09/17 14:05 Order name: Basic Metabolic Panel; Complete Time: 14:55 rn 09/17 14:05 Order name: Ketone, Serum; Complete Time: 14:55 rn 09/17 14:05 Order name: ABG; Complete Time: 15:53 rn 09/17 16:26 Order name: Chem 7; Complete Time: 17:06 aa5 09/17 14:05 Order name: IV Start; Complete Time: 15:01 rn 09/17 14:05 Order name: EKG; Complete Time: 14:06 rn 09/17 14:05 Order name: EKG - Nurse/Tech; Complete Time: 14:37 rn 09/17 17:09 Order name: glucometer results - FOR PT WITH NO ID; Complete Time: 17:31 aa5 09/17 16:26 Order name: FSBS; Complete Time: 16:35 aa5 Administered Medications: 14:30 Drug: NS 0.9% 1000 ml Route: IV; Rate: 1000 ml; Site: right antecubital; aa5 16:27 Follow up: IV Status: Completed infusion; IV Intake: 1000ml aa5 14:30 Drug: Insulin Regular Human 10 units {Co-Signature: bp (Jose Krishnan RN).} Route: aa5 Sub-Q; Site: left lower abdomen; 15:00 Follow up: Response: No adverse reaction aa5 15:10 Drug: NS 0.9% 1000 ml Route: IV; Rate: 1000 ml; Site: right antecubital; aa5 16:27 Follow up: IV Status: Completed infusion; IV Intake: 1000ml aa5 17:15 Drug: Insulin Regular Human 10 units {Co-Signature: aa5 (Maday Christy RN).} Route: bp Sub-Q; Site: left lower abdomen; 17:40 Follow up: Response: No adverse reaction aa5 Point of Care Testing: Blood Glucose: 13:33 Blood Glucose: 354 mg/dL; ca1 16:35 Blood Glucose: 279 mg/dL; aa5 Ranges: Critical Glucose Levels:Adult <50 mg/dl or >400 mg/dl <40 mg/dl or >180 mg/dl Disposition: 09/18/19 17:32 Discharged to Home. Impression: Hyperglycemia, unspecified, Dehydration. - Condition is Stable. - Discharge Instructions: Dehydration, Adult, Hyperglycemia, Blood Glucose Monitoring, Adult. - Prescriptions for Metformin 500 mg Oral Tablet - take 1 tablet by ORAL route every 12 hours .; 60 tablet. - Medication Reconciliation Form, Thank You Letter, Antibiotic Education, Prescription Opioid Use form. - Follow up: Private Physician; When: As needed; Reason: Recheck today's complaints, Re-evaluation by your physician. - Problem is an ongoing problem. - Symptoms have improved. Signatures: Dispatcher [employer] EDMS Santosh John MD MD rn Calderon, CECY Nassar RN aa5 Jose Krishnan RN RN bp Acob, Cheryl, RN RN ca1 Jose Krishnan RN bp Maday Christy RN aa5 Corrections: (The following items were deleted from the chart) 17:47 17:32 09/18/2019 17:32 Discharged to Home. Impression: Hyperglycemia, unspecified; aa5 Dehydration. Condition is Stable. Forms are Medication Reconciliation Form, Thank You Letter, Antibiotic Education, Prescription Opioid Use. Follow up: Private Physician; When: As needed; Reason: Recheck today's complaints, Re-evaluation by your physician. Problem is an ongoing problem. Symptoms have improved. rn
[2019-09-18 19:42] VITALS: TEMP 98.1
[2019-09-18 19:45] VITALS: BP 139/97; O2SAT 97
--- NOTE | 2019-09-19 07:24 | EKG ---
Test Date: 2019-09-18 Test Time: 14:35:49 [employer]oe Fitter: [place] MEASUREMENT RESULTS: Intervals: Rate: 111 NE: 136 QRSD: 88 QT: 338 QTc: 459 [place]: P: 41 NE: 136 QRS: 25 T: 14 INTERPRETIVE STATEMENTS: Sinus tachycardia Otherwise normal ECG Compared to ECG 03/15/2018 21:57:47 No significant changes Electronically Signed On 09-19-19 07:23:01 CDT by Erick Cross
== END 2019-09-18 17:47 | disposition home or self-care (01) ==
LOC: ER 13:11
DX: E11.65 Type 2 diabetes mellitus with hyperglycemia (principal); E86.0 Dehydration
CPT/HCPCS: 36415; 80048; 82010; 82805; 82947; 85025; 93005; 96360; 96361; 96372; 99284; J7030

== ENCOUNTER 2019-10-01 08:58 | Inpatient (IN) | payer SELFPAY ==
[2019-10-01] MEDS ORDERED: PANTOPRAZOLE 40 MG INJ ONE (10:12)
[2019-10-01] MEDS ORDERED: MORPHINE 4 MG/ML SYR ONE ×2 (10:12→10:50)
[2019-10-01] MEDS ORDERED: NA CHLORIDE 0.9% 2,000 ML ONE (10:12)
[2019-10-01] MEDS ORDERED: ONDANSETRON 4 MG/2 ML VIAL ONE ×3 (10:12→20:33)
[2019-10-01 10:39] LABS: Basophils % 0.7 % (0-1.3); Hematocrit 47.6 % (39.6-49.0); Lymphocytes % 13.1 % (15.3-44.8); MPV 10.2 fL (7.6-11.3); RBC Red Blood Cell Count 5.89 M/uL (4.33-5.43)
[2019-10-01 11:06] LABS: ALT/SGPT 94 U/L (12-78); Albumin 3.7 g/dL (3.4-5.0); Alkaline Phosphatase 140 U/L (45-117); BUN Blood Urea Nitrogen 7 mg/dL (7-18); Bilirubin Direct < 0.1 mg/dL (0-0.2); Bilirubin Total 0.6 mg/dL (0.2-1.0); Glucose Level 426 mg/dL (74-106); Lipase 2584 U/L (73-393); Protein, Total 9.5 g/dL (6.4-8.2); Sodium Level 133 mmol/L (136-145)
[2019-10-01 11:10] LABS: Bicarbonate 8 mmol/L (21-32)
[2019-10-01 11:12] LABS: AST/SGOT 54 U/L (15-37); Potassium 4.4 mmol/L (3.5-5.1)
[2019-10-01 11:32] LABS: Urine Blood 1+ (NEG); Urine Glucose 2+ (NEG); Urine Protein 2+ (NEG); Urine Specific Gravity >1.030 (1.005-1.030)
[2019-10-01] MEDS ORDERED: NA CHLORIDE 0.9% 1,000 ML ONE ×3 (11:33→22:50)
--- NOTE | 2019-10-01 11:34 | EDPHYS ---
Physician Documentation [facility] Name: Vijay Law Age: 24 yrs Sex: Male : 1995 Arrival Date: 10/01/2019 Time: 09:05 Bed 10 Private MD: ED Physician Toney Matias HPI: 09/30 09:55 This 24 yrs old Male presents to ER via Ambulatory with complaints of Back cp Pain, Abdominal Pain, Nausea/Vomiting. 09:55 The patient presents with abdominal pain in the upper abdomen. cp 09:55 Onset: The symptoms/episode began/occurred this morning. The symptoms radiate to back. cp Associated signs and symptoms: Pertinent positives: nausea and vomiting, Pertinent negatives: chest pain, constipation, diarrhea, fever, testicular pain. The symptoms are described as constant. Severity of pain: in the emergency department the pain is unchanged despite home interventions. Historical: - Allergies: 09:40 No Known Allergies; ss - PMHx: 09:40 Hypothyroidism; Diabetes - NIDDM; ss 09:52 Thyroid problem; tw2 - PSHx: 09:40 None; ss - Immunization history:: Adult Immunizations up to date. - Social history:: Smoking status: Patient denies any tobacco usage or history of. ROS: 10:00 Constitutional: Negative for body aches, chills, fever, poor PO intake. cp 10:00 Eyes: Negative for injury, pain, redness, and discharge. cp 10:00 Cardiovascular: Negative for chest pain. 10:00 Respiratory: Negative for cough, shortness of breath, wheezing. 10:00 Abdomen/GI: Positive for abdominal pain, nausea and vomiting, Negative for diarrhea, constipation, hematemesis, black/tarry stool, rectal bleeding. 10:00 Back: Positive for radiated pain. 10:00 Neuro: Negative for altered mental status, headache, weakness. 10:00 All other systems are negative. Exam: 10:05 Constitutional: The patient appears in no acute distress, alert, awake, cp non-diaphoretic, non-toxic, well developed, well nourished, obese, uncomfortable. 10:05 Head/Face: Normocephalic, atraumatic. cp 10:05 Eyes: Periorbital structures: appear normal, Conjunctiva: normal, no exudate, no injection, Sclera: no appreciated abnormality, Lids and lashes: appear normal, bilaterally. 10:05 ENT: External ear(s): are unremarkable, Nose: is normal, Mouth: Lips: moist, Oral mucosa: pink and intact, moist, Posterior pharynx: is normal, airway is patent, no erythema, no exudate. 10:05 Neck: ROM/movement: is normal, is supple. 10:05 Chest/axilla: Inspection: normal, Palpation: is normal, no crepitus, no tenderness. 10:05 Cardiovascular: Rate: tachycardic, Rhythm: regular, Edema: is not appreciated, JVD: is not appreciated. 10:05 Respiratory: the patient does not display signs of respiratory distress, Respirations: normal, no use of accessory muscles, no retractions, labored breathing, is not present, Breath sounds: are clear throughout, no decreased breath sounds, no stridor, no wheezing. 10:05 Abdomen/GI: Inspection: obese Bowel sounds: active, all quadrants, Palpation: soft, in all quadrants, severe abdominal tenderness, in the umbilical area, right upper quadrant and left upper quadrant, rebound tenderness, is not appreciated, voluntary guarding, is elicited in the umbilical area, right upper quadrant and left upper quadrant. 10:05 Back: pain, that is moderate, of the mid back area, ROM is painful. 10:05 Skin: no rash present. 10:05 Neuro: Orientation: to person, place \T\ time. Mentation: is normal. Vital Signs: 09:37 BP 159 / 101; Pulse 139; Resp 22; Temp 97.5(TE); Pulse Ox 98% on R/A; Weight 145.15 kg; ss Height 5 ft. 9 in. (175.26 cm); Pain 8/10; 10:20 BP 138 / 84; Pulse 128; Resp 28; Pulse Ox 94% on R/A; jr10 10:44 BP 148 / 102; Pulse 132; Resp 26; Pulse Ox 97% on R/A; Pain 8/10; jr10 11:14 BP 138 / 91; Pulse 132; Resp 26; Pulse Ox 97% on R/A; jr10 11:55 BP 155 / 94; Pulse 126; Resp 27; Pulse Ox 96% on R/A; jr10 12:30 BP 151 / 92; Pulse 125; Resp 24; Pulse Ox 95% on R/A; jr10 13:00 BP 151 / 95; Pulse 129; Resp 24; Pulse Ox 94% on R/A; jr10 09:37 Body Mass Index 47.26 (145.15 kg, 175.26 cm) ss MDM: 09:43 Patient medically screened. [facility] 11:30 Physician consultation: Rodrick Lima MD was contacted at 11:30, regarding admission, cp to the ICU, patient's condition. 12:05 Data reviewed: vital signs, nurses notes, lab test result(s), radiologic studies, CT cp scan. 12:05 Response to treatment: the patient's symptoms have mildly improved after treatment. 09/30 09:55 Order name: Basic Metabolic Panel; Complete Time: 11:15 09/30 09:55 Order name: CBC with Diff 09/30 10:59 Interpretation: Normal except: RBC 5.89; PLT 376; MPV 10.2; HALINA% 80.7; LYM% 13.1; NEUT cp A 18.7. 09/30 09:55 Order name: Hepatic Function; Complete Time: 11:15 09/30 11:32 Interpretation: Normal except: AST 54; ALT 94; ALK 140; TP 9.5; GLOB 5.8; A/G 0.6. 09/30 09:55 Order name: Lipase; Complete Time: 11:15 09/30 09:55 Order name: Ketone, Serum; Complete Time: 11:14 09/30 10:40 Interpretation: Abnormal: ACET SMALL. 09/30 09:55 Order name: Urine Microscopic Only; Complete Time: 11:43 09/30 11:43 Interpretation: Normal except: UWBC 5-10; URBC 5-10; SQEPI 5-10; YEAST PRESENT. 09/30 10:05 Order name: Glucose, Ancillary Testing; Complete Time: 10:33 EDIN 09/30 11:28 Order name: Urine Dipstick--Ancillary (enter results); Complete Time: 11:43 bd 09/30 11:47 Order name: Urine Culture [facility] 09/30 12:46 Order name: T4 Free [facility] 09/30 12:46 Order name: Thyroid Stimulating Hormone [facility] 09/30 12:46 Order name: Urinalysis [facility] 09/30 12:46 Order name: Basic Metabolic Panel [facility] 09/30 12:46 Order name: Basic Metabolic Panel EDMS 09/30 09:55 Order name: US Abdomen Limited: epigastric/RUQ; Complete Time: 12:03 cp 09/30 12:03 Interpretation: Report reviewed. 09/30 10:37 Order name: CT Abd/Pelvis - IV Contrast Only; Complete Time: 12:03 cp 09/30 12:04 Interpretation: Report reviewed. 09/30 12:46 Order name: Basic Metabolic Panel EDMS 09/30 12:46 Order name: Basic Metabolic Panel EDMS 09/30 12:49 Order name: Manual Differential EDMS 09/30 13:24 Order name: Glucose, Ancillary Testing EDMS 09/30 09:55 Order name: IV Saline Lock; Complete Time: 10:23 cp 09/30 09:55 Order name: Labs collected and sent; Complete Time: 10:23 cp 09/30 09:55 Order name: Urine Dipstick-Ancillary (obtain specimen); Complete Time: 11:39 cp 09/30 10:44 Order name: Labs - recollect needed: recollect c7; Complete Time: 11:00 bd 09/30 12:46 Order name: Consistent Carb (ADA) 1800 [address] EDMS 09/30 12:47 Order name: CONS Pharmacy Consult EDMS Administered Medications: 10:10 Drug: ProTONIX 40 mg Route: IVP; Site: right forearm; jr10 10:35 Follow up: Response: No adverse reaction jr10 10:10 Drug: NS 0.9% 1000 ml Route: IV; Rate: 1 bolus; Site: right forearm; jr10 13:15 Follow up: Response: No adverse reaction; IV Status: Completed infusion jr10 10:10 Drug: NS 0.9% 1000 ml Route: IV; Rate: 1 bolus; Site: right forearm; jr10 13:15 Follow up: Response: No adverse reaction; IV Status: Completed infusion jr10 10:12 Drug: Zofran (Ondansetron) 4 mg Route: IVP; Site: right forearm; jr10 10:35 Follow up: Response: No adverse reaction; Nausea is decreased jr10 10:12 Drug: morphine 4 mg Route: IVP; Site: right forearm; jr10 10:36 Follow up: Response: No adverse reaction; Pain is unchanged, physician notified jr10 10:47 Drug: morphine 4 mg Route: IVP; Site: right forearm; jr10 11:40 Follow up: Response: No adverse reaction; Pain is decreased jr10 11:22 Not Given (Physician Discretion): Insulin Drip - (Insulin Regular Human 100 units, NS cp 0.9% 100 ml) IV at 10 units/hr continuous; Standard concentration 1unit/ml; Dose for DKA is 0.1 units/kg/hr 11:53 Drug: Insulin Drip - (Insulin Regular Human 100 units, NS 0.9% 100 ml) {Co-Signature: jr10 sv (Irina Galvan RN).} Route: IV; Rate: 7 units/hr; Site: right forearm; 11:57 Drug: Rocephin 1 grams {Note: slow IVP per pharmacy formulary and protocol.} Route: IV; jr10 Rate: calculated rate; Site: right forearm; 12:25 Follow up: Response: No adverse reaction; IV Status: Completed infusion jr10 11:58 Drug: DiFLUcan 200 mg Route: PO; jr10 12:25 Follow up: Response: No adverse reaction jr10 13:05 Drug: NS 0.9% 1000 ml Route: IV; Rate: 1 bolus; Site: right forearm; jr10 13:10 Drug: Dilaudid 1 mg {Note: pain 7/10.} Route: IVP; Site: right forearm; jr10 13:31 Follow up: Response: No adverse reaction; Pain is decreased jr10 Disposition: 10/01 08:35 Co-signature as Attending Physician, Toney Matias MD I agree with the assessment and poly plan of care. Disposition: 10/01/19 11:33 Hospitalization ordered by Rodrick Lima for Inpatient Admission. Preliminary diagnosis are Acute pancreatitis, Diabetes mellitus due to underlying condition with ketoacidosis without coma, Nausea and vomiting. - Bed requested for Intensive Care Unit. - Status is Inpatient Admission. jr10 - Condition is Fair. - Problem is new. - Symptoms have improved. Signatures: Dispatcher [employer] EDMS Jhoana Bello Corey, MD MD cha Smirch, Shelby RN RN ss Toney Ball PA PA cp Wise, Tara RN RN tw2 Marybeth Villanueva RN RN jr10 Irina Galvan RN sv Corrections: (The following items were deleted from the chart) 09/30 11:32 11:32 Normal except: AST 54; ALT 94; ALK 140; TP 9.5; GLOB 5.8. cp cp 11:36 11:33 Hospitalization Ordered by Rodrick Lima MD for Inpatient Admission. Preliminary cp diagnosis is Acute pancreatitis. Bed requested for Intensive Care Unit. Status is Inpatient Admission. Condition is Fair. Problem is new. Symptoms have improved. cp 13:35 11:36 10/01/2019 11:33 Hospitalization Ordered by oRdrick Lima MD for Inpatient jr10 Admission. Preliminary diagnosis is Acute pancreatitis; Diabetes mellitus due to underlying condition with ketoacidosis without coma; Nausea and vomiting. Bed requested for Intensive Care Unit. Status is Inpatient Admission. Condition is Fair. Problem is new. Symptoms have improved. cp
--- NOTE | 2019-10-01 11:34 | ER ---
Nurse's Notes [facility] Name: Vijay Law Age: 24 yrs Sex: Male : 1995 Arrival Date: 10/01/2019 Time: 09:05 Bed 10 Private MD: Diagnosis: Acute pancreatitis;Diabetes mellitus due to underlying condition with ketoacidosis without coma;Nausea and vomiting Presentation: 09/30 09:37 Chief complaint: Patient states: Epigastric pain, N/V that began at 0400 this morning. ss Pt reports he was seen in ER for excessive thirst 2 weeks ago and prescribed Metformin after being diagnosed with diabetes. Coronavirus screen: Patient denies a cough. Patient reports shortness of breath or difficulty breathing. Patient denies measured and/or subjective temperature greater than 100.4F prior to today's visit. Patient denies travel on a cruise ship or to a country the [facility] currently lists as an affected area. Patient denies contact with known and/or suspected case of COVID-19. Ebola Screen: Patient denies exposure to infectious person. Patient denies travel to an Ebola-affected area in the 21 days before illness onset. Initial Sepsis Screen: Does the patient meet any 2 criteria? No. Patient's initial sepsis screen is negative. Does the patient have a suspected source of infection? No. Patient's initial sepsis screen is negative. Risk Assessment: Do you want to hurt yourself or someone else? Patient reports no desire to harm self or others. Onset of symptoms was October 01, 2019. 09:37 Method Of Arrival: Ambulatory 09:37 Acuity: SUYAPA 2 Historical: - Allergies: 09:40 No Known Allergies; ss - PMHx: 09:40 Hypothyroidism; Diabetes - NIDDM; ss 09:52 Thyroid problem; tw2 - PSHx: 09:40 None; ss - Immunization history:: Adult Immunizations up to date. - Social history:: Smoking status: Patient denies any tobacco usage or history of. Screenin:51 Abuse screen: Denies threats or abuse. Nutritional screening: No deficits noted. tw2 Tuberculosis screening: No symptoms or risk factors identified. Fall Risk None identified. Assessment: 10:16 General: Appears uncomfortable, Behavior is calm, cooperative, appropriate for age. jr10 Pain: Complains of pain in epigastric area and left upper quadrant Pain radiates to left low back, left mid back, right mid back and right low back Pain currently is 8 out of 10 on a pain scale. Quality of pain is described as aching, Pain began this morning Is continuous, Alleviated by nothing. Aggravated by increased activity, Noted to be grimacing, Also complains of nausea. Neuro: No deficits noted. Level of Consciousness is awake, alert, obeys commands, Oriented to person, place, time, situation, Appropriate for age. Cardiovascular: No deficits noted. Respiratory: No deficits noted. Airway is patent Respiratory effort is even, unlabored, Respiratory pattern is symmetrical, tachypnea Breath sounds are clear bilaterally. GI: Abdomen is obese, Bowel sounds present X 4 quads. Abd is soft Abdomen is tender to palpation in epigastric area and left upper quadrant Reports nausea, vomiting, Patient currently denies diarrhea, recently diagnosed with DM, started on metformin 2 weeks ago but has been unable to take medication for the past 2 days due to n/v. : Reports pain in lower back urinary frequency. :. EENT: No deficits noted. EENT:. Derm: No deficits noted. Musculoskeletal: No deficits noted. Vital Signs: 09:37 BP 159 / 101; Pulse 139; Resp 22; Temp 97.5(TE); Pulse Ox 98% on R/A; Weight 145.15 kg; ss Height 5 ft. 9 in. (175.26 cm); Pain 8/10; 10:20 BP 138 / 84; Pulse 128; Resp 28; Pulse Ox 94% on R/A; jr10 10:44 BP 148 / 102; Pulse 132; Resp 26; Pulse Ox 97% on R/A; Pain 8/10; jr10 11:14 BP 138 / 91; Pulse 132; Resp 26; Pulse Ox 97% on R/A; jr10 11:55 BP 155 / 94; Pulse 126; Resp 27; Pulse Ox 96% on R/A; jr10 12:30 BP 151 / 92; Pulse 125; Resp 24; Pulse Ox 95% on R/A; jr10 13:00 BP 151 / 95; Pulse 129; Resp 24; Pulse Ox 94% on R/A; jr10 09:37 Body Mass Index 47.26 (145.15 kg, 175.26 cm) ED Course: 09:05 Patient arrived in ED. am2 09:19 [facility]. cp 09:19 Toney Matias MD is Attending Physician. cp 09:40 Triage completed. ss 09:40 Arm band placed on right wrist. ss 09:41 Bed in low position. Call light in reach. Pulse ox on. NIBP on. tw2 09:50 Marybeth Villanueva RN is Primary Nurse. jr10 09:53 surveillance system monitor on. tw2 10:10 Inserted saline lock: 20 gauge in right forearm, using aseptic technique. IV is patent, jr10 is intact, Flushed. 10:21 No provider procedures requiring assistance completed. jr10 10:53 US Abdomen Limited: epigastric/RUQ In Process Unspecified. EDMS 11:30 CT Abd/Pelvis - IV Contrast Only In Process Unspecified. EDMS 11:32 Rodrick Lima MD is Hospitalizing Provider. cp 11:52 Inserted saline lock: 20 gauge in right forearm, using aseptic technique. Flushed right sv forearm with 5 ml normal saline. 11:53 Urine Culture Sent. sv 13:31 Report given to Abby Moser RN. jr10 Administered Medications: 10:10 Drug: ProTONIX 40 mg Route: IVP; Site: right forearm; jr10 10:35 Follow up: Response: No adverse reaction jr10 10:10 Drug: NS 0.9% 1000 ml Route: IV; Rate: 1 bolus; Site: right forearm; jr10 13:15 Follow up: Response: No adverse reaction; IV Status: Completed infusion jr10 10:10 Drug: NS 0.9% 1000 ml Route: IV; Rate: 1 bolus; Site: right forearm; jr10 13:15 Follow up: Response: No adverse reaction; IV Status: Completed infusion jr10 10:12 Drug: Zofran (Ondansetron) 4 mg Route: IVP; Site: right forearm; jr10 10:35 Follow up: Response: No adverse reaction; Nausea is decreased jr10 10:12 Drug: morphine 4 mg Route: IVP; Site: right forearm; jr10 10:36 Follow up: Response: No adverse reaction; Pain is unchanged, physician notified jr10 10:47 Drug: morphine 4 mg Route: IVP; Site: right forearm; jr10 11:40 Follow up: Response: No adverse reaction; Pain is decreased jr10 11:22 Not Given (Physician Discretion): Insulin Drip - (Insulin Regular Human 100 units, NS cp 0.9% 100 ml) IV at 10 units/hr continuous; Standard concentration 1unit/ml; Dose for DKA is 0.1 units/kg/hr 11:53 Drug: Insulin Drip - (Insulin Regular Human 100 units, NS 0.9% 100 ml) {Co-Signature: sv (Irina Galvan RN).} Route: IV; Rate: 7 units/hr; Site: right forearm; 11:57 Drug: Rocephin 1 grams {Note: slow IVP per pharmacy formulary and protocol.} Route: IV; jr10 Rate: calculated rate; Site: right forearm; 12:25 Follow up: Response: No adverse reaction; IV Status: Completed infusion jr10 11:58 Drug: DiFLUcan 200 mg Route: PO; jr10 12:25 Follow up: Response: No adverse reaction jr10 13:05 Drug: NS 0.9% 1000 ml Route: IV; Rate: 1 bolus; Site: right forearm; jr10 13:10 Drug: Dilaudid 1 mg {Note: pain 7/10.} Route: IVP; Site: right forearm; jr10 13:31 Follow up: Response: No adverse reaction; Pain is decreased jr10 Outcome: 11:33 Decision to Hospitalize by Provider. cp 13:35 Patient left the ED. jr10 Signatures: Dispatcher [employer] Irina Yoon RN RN sv Raegan Medeiros RN Toney Myers PA PA cp Wise, Tara RN CECY 2 Tamika Garcia Jessica, RN RN jr10 Irina Galvan RN
[2019-10-01 11:40] LABS: Urine Bacteria NONE SEEN /HPF (NONE SEEN); Urine Culture Reflex Order REFLEXED; Urine Mucus LIGHT /HPF (NONE SEEN); Urine Yeast PRESENT (NONE SEEN)
[2019-10-01 11:41] LABS: Urine Yeast with Hyphae PRESENT
--- NOTE | 2019-10-01 11:43 | RAD REPORT ---
EXAM DESCRIPTION: US - Abdomen Exam Limited - 10/01/2019 10:52 am CLINICAL HISTORY: upper abdomen pain Abdominal pain COMPARISON: Abdomen Exam Limited dated 03/15/2018 FINDINGS: The gallbladder demonstrates no gallstones. No pericholecystic fluid or gallbladder wall t hickening. The common bile duct is normal measuring 4 mm. The liver demonstrates no findings of intrahepatic biliary dilatation. IMPRESSION: Unremarkable examination.
--- NOTE | 2019-10-01 11:54 | RAD REPORT ---
EXAM DESCRIPTION: CTAbdomen Pelvis W Contrast - 10/01/2019 11:30 am CLINICAL HISTORY: Abdominal pain. ABD PAIN COMPARISON: Abdomen Pelvis W Contrast dated 03/15/2018 TECHNIQUE: Biphasic CT imaging of the abdomen and pelvis was performed with 100 ml non-ionic IV cont rast. All CT scans are performed using dose optimization technique as appropriate and may include automated exposure control or mA/KV adjustment according to patient size. FINDINGS: The lung bases are clear. The liver demonstrates diffuse fatty infiltration. The spleen, adrenal glands and kidneys are within normal limits. Moderate inflammatory changes is seen surrounding the pancreatic head and uncinate pro cess compatible with moderate acute pancreatitis. No pseudocysts, necrosis or abscess. No bowel obstruction, free air, free fluid or abscess. The appendix is normal. No evidence of signi ficant lymphadenopathy. No suspicious bony findings. IMPRESSION: Moderate acute pancreatitis noted.
[2019-10-01] MEDS ORDERED: FLUCONAZOLE 100 MG TAB ONE (12:00)
[2019-10-01] MEDS ORDERED: INSULIN -REGULAR HUMAN 100 UNIT in NA CHLORIDE 0.9% 100 ML IV SCH (12:00)
[2019-10-01] MEDS ORDERED: CEFTRIAXONE/SWI 1gm 1 GM/10 ML SYR ONE (12:01)
[2019-10-01] MEDS ORDERED: ACETAMINOPHEN 500 MG TAB PO PRN (12:40)
[2019-10-01 12:49] LABS: Blood Morphology Comment NOT SEEN (NOT SEEN); Platelet Estimate ADEQ
[2019-10-01] MEDS ORDERED: HYDROMORPHONE HCL 2 MG/ML inj ONE (13:13)
--- NOTE | 2019-10-01 13:42 | P.HP ---
Certification for Inpatient Patient admitted to: Inpatient With expected LOS: >2 Midnights Patient will require the following post-hospital care: None Practitioner: I am a practitioner with admitting privileges, knowledge of patient current condition, hospital course, and medical plan of care. Services: Services provided to patient in accordance with Admission requirements found in Title 42 Section 412.3 of the Code of Federal Regulations Patient History Date of Service: 10/01/19 Reason for admission: DKA History of Present Illness: 24 yrs old Male with past medical history of diabetes, hypertension, hypothyroidism came to the ER with intractable abdominal pain and nausea and vomiting which has been going on for 1 day and has been progressively worsening and was brought to the ER. In the ER he was found to have hyperglycemia and was found to be in DKA and was admitted for further management. Patient denies any fever or chills. No sick contacts Cannot tolerate anything p.o. , denies any diarrhea No chest pain or shortness of breath Associated with intractable nausea and vomiting Diffuse abdominal pain Patient was assessed in the ER and was found to have DKA and was admitted for further management Allergies No Known Allergies Allergy (Verified 10/01/19 15:26) Home medications list reviewed: Yes Home Medications: Metformin HCl 500 mg PO BID #60 tablet 03/18/18 - Past Medical/Surgical History Diabetic: Yes Past Medical History: Reviewed- Non-Contributory -: hypothyroid, has not been on medicine for 4 1/2 years -: was hospitalized 02/2017 for hyperglycemia, quit taking insulin per his MD -: DM II -: obesity Past Surgical History: Reviewed- Non-Contributory - Social History Smoking Status: Never smoker Alcohol use: No CD- Drugs: No Caffeine use: Yes Review of Systems 10-point ROS is otherwise unremarkable Physical Examination - Vital Signs Temperature: 97.5 F Blood Pressure: 159/101 Pulse: 75 Respirations: 18 - Physical Exam General: Alert, Oriented x3, Mild distress, Obese HEENT: Atraumatic, Normocephalic Neck: Supple Respiratory: Clear to auscultation bilaterally, Normal air movement Cardiovascular: Regular rate/rhythm, Normal S1 S2 Capillary refill: <2 Seconds Gastrointestinal: Soft and benign, W/out hepatosplenomegaly Musculoskeletal: No clubbing, No swelling Integumentary: No rashes Neurological: Normal speech, Normal strength at 5/5 x4 extr Lymphatics: No axilla or inguinal lymphadenopathy - Studies Laboratory Data (last 24 hrs) 10/01/19 10:10: WBC 23.2 H* D, Hgb 16.2, Hct 47.6, Plt Count 376 D 10/01/19 10:10: Sodium 133 L, Potassium 4.4, BUN 7, Creatinine 1.04, Glucose 426 H*, Total Bilirubin 0.6, AST 54 H, ALT 94 H, Alkaline Phosphatase 140 H, Lipase 2584 H Assessment and Plan - Advance Directives Does patient have a Living Will: No Does patient have a Durable POA for Healthcare: No Physician Review Additional Text: Diabetic ketoacidosis Acute pancreatitis Leukocytosis Accelerated hypertension Intractable nausea and vomiting Diffuse abdominal pain Plan Pain control NPO IV hydration Start on insulin drip DKA protocol Monitor BMP q.4 hr Monitor electrolytes and correct accordingly antihypertensives titrated Anti nausea medications Monitor lipase level in the morning GI/DVT prophylaxis Time Spent Managing Pts Care (In Minutes): 42
[2019-10-01 14:04] LABS: Thyroid Stimulating Hormone 1.64 uIU/mL (0.360-3.740)
[2019-10-01] MEDS ORDERED: ENOXAPARIN 40 MG/0.4 ML SQ ONE (14:58)
[2019-10-01] MEDS: ENOXAPARIN 40 MG/0.4 ML SQ SCH (15:07)
[2019-10-01] MEDS: NA CHLORIDE 0.9% 1,000 ML IV SCH ×2 (15:07→22:46)
[2019-10-01] MEDS: ONDANSETRON 4 MG/2 ML VIAL IV PRN ×2 (15:46→20:37)
[2019-10-01] MEDS ORDERED: LABETALOL 20 MG/4ML SYRINGE IV PRN (16:24)
[2019-10-01] MEDS: HYDROMORPHONE HCL 1 MG/ML INJ IV PRN ×2 (16:35→20:17)
[2019-10-01] MEDS ORDERED: HYDROMORPHONE HCL 1 MG/ML INJ ONE ×2 (16:43→20:15)
[2019-10-01 17:35] LABS: BUN Blood Urea Nitrogen 6 mg/dL (7-18); Glucose Level 325 mg/dL (74-106); Sodium Level 134 mmol/L (136-145)
[2019-10-01 17:36] LABS: Bicarbonate 11 mmol/L (21-32); Potassium 4.4 mmol/L (3.5-5.1)
[2019-10-01] MEDS: D5 0.45 NS 1,000 ML IV SCH (20:00)
[2019-10-01] MEDS: INSULIN -REGULAR HUMAN 100 UNIT in NA CHLORIDE 0.9% 100 ML IV SCH (20:16)
[2019-10-01] MEDS ORDERED: FENTANYL CITR 100 MCG/2 ML IV PRN (22:25)
[2019-10-02 00:32] LABS: Potassium 4.5 mmol/L (3.5-5.1)
[2019-10-02] MEDS ORDERED: ACETAMINOPHEN 325 MG TABLET PO ONE (02:05)
[2019-10-02] MEDS ORDERED: NA CHLORIDE 0.9% 500 ML IV ONE (02:14)
[2019-10-02] MEDS ORDERED: METOPROLOL TARTRATE 5 MG/5 ML INJ IV STA ×2 (02:17→06:13)
[2019-10-02] MEDS: NA CHLORIDE 0.9% 1,000 ML IV SCH ×2 (02:20→18:22)
[2019-10-02] MEDS ORDERED: NA CHLORIDE 0.9% 1,000 ML ONE ×3 (02:37→22:23)
[2019-10-02] MEDS: D5 0.45 NS 1,000 ML IV SCH (02:40)
[2019-10-02] MEDS ORDERED: HYDROMORPHONE HCL 1 MG/ML INJ ONE ×3 (03:41→20:56)
[2019-10-02] MEDS: ONDANSETRON 4 MG/2 ML VIAL IV PRN ×2 (03:41→18:41)
[2019-10-02] MEDS ORDERED: ONDANSETRON 4 MG/2 ML VIAL ONE ×3 (03:42→20:56)
[2019-10-02] MEDS: HYDROMORPHONE HCL 1 MG/ML INJ IV PRN ×3 (03:43→20:47)
[2019-10-02 04:27] LABS: HDL Cholesterol 30 mg/dL (40-60)
[2019-10-02 04:39] LABS: LDL, Direct 49 mg/dL (100-129)
[2019-10-02 05:31] LABS: BUN Blood Urea Nitrogen 9 mg/dL (7-18); Glucose Level 225 mg/dL (74-106); Lipase 2926 U/L (73-393); NT PRO-BNP 101 pg/mL (<125); Sodium Level 139 mmol/L (136-145)
[2019-10-02 05:32] LABS: Magnesium 1.7 mg/dL (1.8-2.4); Potassium 4.1 mmol/L (3.5-5.1)
[2019-10-02 05:33] LABS: Bicarbonate 10 mmol/L (21-32)
--- NOTE | 2019-10-02 06:13 | P.PN ---
Date of Service: 10/02/19 Patient was pancreatitis secondary to hypertriglyceridemia. This has resulted in secondary DKA which at this time has resolved. Acetones are negative now. Patient with metabolic acidosis most likely related to hyperchloremia as well as possible RTA. Will give 1 amp of bicarb start on bicarb fluids. Continue insulin drip for hypertriglyceridemia. Also start oral Lopid and fish oil capsules with a simple water to help lower triglyceride levels quickly. Hypocalcemia secondary to saponification.
[2019-10-02] MEDS: INSULIN -REGULAR HUMAN 100 UNIT in NA CHLORIDE 0.9% 100 ML IV SCH ×3 (06:21→20:48)
[2019-10-02] MEDS ORDERED: SODIUM BICARB 50 MEQ/50ML VIAL ONE ×2 (06:26→07:58)
[2019-10-02] MEDS ORDERED: SODIUM BICARB 50 MEQ/50ML VIAL IV ONE (07:24)
[2019-10-02] MEDS: D5W 1,000 ML with NA BICARB 8.4% 50 MEQ IV SCH ×4 (07:26→15:08)
[2019-10-02] MEDS: DOCOSAHEXANOIC AC/EPA 1000 MG PO SCH ×2 (07:52→21:00)
[2019-10-02] MEDS: gemfibroziL 600 MG TAB PO SCH ×2 (07:52→22:00)
[2019-10-02] MEDS: ENOXAPARIN 40 MG/0.4 ML SQ SCH (07:52)
[2019-10-02] MEDS ORDERED: ENOXAPARIN 40 MG/0.4 ML SQ ONE (07:57)
[2019-10-02 09:48] LABS: Absolute Lymphocytes (CBC) 1.9 K/uL (0.7-4.9); Basophils % 0.7 % (0-1.3); Hematocrit 46.4 % (39.6-49.0); Lymphocytes % 13.4 % (15.3-44.8); MPV 9.9 fL (7.6-11.3); RBC Red Blood Cell Count 5.84 M/uL (4.33-5.43)
[2019-10-02 09:50] LABS: Protime INR 1.09
--- NOTE | 2019-10-02 12:11 | P.PN ---
Subjective Date of Service: 10/02/19 Chief Complaint: DKA Subjective: No new changes, Improving, Other (Still having abdominal pain) Review of Systems 10-point ROS is otherwise unremarkable Physical Examination - Vital Signs Temperature: 100 F Blood Pressure: 118/79 Pulse: 149 Respirations: 26 Pulse Ox (%): 94 - Physical Exam General: Alert, Mild distress, Obese HEENT: Atraumatic, Normocephalic Neck: Supple Respiratory: Clear to auscultation bilaterally, Normal air movement Cardiovascular: Regular rate/rhythm, Normal S1 S2 Capillary refill: <2 Seconds Gastrointestinal: Soft and benign, W/out hepatosplenomegaly Musculoskeletal: No clubbing, No swelling Integumentary: No rashes, No tenderness/swelling Neurological: Normal speech, Normal strength at 5/5 x4 extr Lymphatics: No axilla or inguinal lymphadenopathy - Studies Laboratory Data (last 24 hrs) 10/01/19 10:10: WBC 23.2 H* D, Hgb 16.2, Hct 47.6, Plt Count 376 D Assessment & Plan Physician Review Additional Text: Diabetic ketoacidosis Acute pancreatitis due to hypertriglyceridemia Leukocytosis Hyperlipidemia Accelerated hypertension Intractable nausea and vomiting Diffuse abdominal pain Tachycardia Acute kidney injury Plan Pain control NPO IV hydration on insulin drip DKA protocol Monitor BMP q.4 hr Monitor electrolytes and correct accordingly Antihypertensives titrated Anti nausea medications Lipid panel noted Added on Lopid Monitor renal parameters Will start on empirical antibiotic Will get blood culture before antibiotic Nephrology consult GI/DVT prophylaxis Time Spent Managing Pts Care (In Minutes): 42
[2019-10-02 12:27] LABS: Albumin 2.2 g/dL (3.4-5.0); Bilirubin Total 0.6 mg/dL (0.2-1.0); Protein, Total 7.3 g/dL (6.4-8.2)
[2019-10-02 12:31] LABS: Potassium 3.8 mmol/L (3.5-5.1)
[2019-10-02] MEDS ORDERED: Ringers Lactate 1,000 ML IV ONE ×3 (13:05→18:28)
[2019-10-02] MEDS: carvediloL 6.25 MG TAB PO SCH ×2 (13:15→22:00)
[2019-10-02] MEDS: PIPER/TAZO/NS 3.375gm 3.375 GM/100 ML BAG IVPB SCH ×2 (13:15→17:00)
[2019-10-02] MEDS ORDERED: PIPER/TAZO/NS 3.375gm 3.375 GM/100 ML BAG ONE ×2 (13:21→22:23)
[2019-10-02] MEDS ORDERED: carvediloL 6.25 MG TAB ONE ×2 (13:21→20:31)
[2019-10-02 13:54] LABS: Arterial Blood Carboxyhemoglob 1.6 % (0-1.5); Blood Gas Oxyhemoglobin 94.9 % (94-97); Blood O2 Saturation 97.6 % (92-98.5)
--- NOTE | 2019-10-02 14:10 | RAD REPORT ---
EXAM DESCRIPTION: US - Urinary Bladder - 10/02/2019 1:56 pm CLINICAL HISTORY: arf/oliguric COMPARISON: Abdomen Pelvis W Contrast dated 10/01/2019 FINDINGS: Bladder is very small. This accentuates the wall thickness of the bladder. Wall thickness is uniform. No gross evidence for a mass or asymmetric wall thickening. No identifiable bladder stone . No adjacent mass or lymphadenopathy seen. IMPRESSION: A very small, mostly contracted bladder shows no gross abnormality of the wall or lumen.
--- NOTE | 2019-10-02 14:13 | RAD REPORT ---
EXAM DESCRIPTION: US - Renal Ultrasound-Complete - 10/02/2019 1:56 pm CLINICAL HISTORY: arf COMPARISON: Abdomen Pelvis W Contrast dated 10/01/2019 FINDINGS: The right kidney measures 12.5 cm in maximum dimension. The left kidney measures 9.7 cm i n maximum dimension.. Cortical thickness is normal in each kidney. Parenchymal echogenicity is increa sed. This may reflect medical renal disease or the affects of very large body habitus. No hydronephro sis or suspicious renal mass. Bladder is detailed in separate report. IMPRESSION: Exam is limited due to large body habitus. However, no hydronephrosis or mass lesion callie ntified. Medical renal disease cannot accurately be assessed. The body habitus affects cause an increase in re nal parenchymal echogenicity.
[2019-10-02 14:49] LABS: Urine Protein/Creatinine Ratio 2.19 ratio (<0.15)
[2019-10-02 16:16] LABS: BUN Blood Urea Nitrogen 14 mg/dL (7-18); Bicarbonate 19 mmol/L (21-32); CKMB Creatine Kinase MB < 1.0 ng/mL (0.3-3.6); Glucose Level 178 mg/dL (74-106); Potassium 3.7 mmol/L (3.5-5.1); Sodium Level 141 mmol/L (136-145); Uric Acid 12.8 mg/dL (3.5-7.2)
[2019-10-02] MEDS ORDERED: Ringers Lactate 1,000 ML IV SCH (18:00)
[2019-10-02] MEDS: KCL 20 MEQ/100 mL IVPB 20 MEQ/100 ML BAG IV SCH ×2 (18:21→20:49)
[2019-10-02] MEDS ORDERED: KCL 20 MEQ/100 mL IVPB 20 MEQ/100 ML BAG IV ONE ×2 (18:28→20:32)
[2019-10-03] MEDS: ONDANSETRON 4 MG/2 ML VIAL IV PRN ×2 (00:16→07:40)
[2019-10-03] MEDS: PIPER/TAZO/NS 3.375gm 3.375 GM/100 ML BAG IVPB SCH ×2 (00:20→08:17)
[2019-10-03] MEDS: NA CHLORIDE 0.9% 1,000 ML IV SCH ×3 (01:53→13:00)
[2019-10-03] MEDS: HYDROMORPHONE HCL 1 MG/ML INJ IV PRN ×4 (03:27→21:36)
[2019-10-03] MEDS ORDERED: HYDROMORPHONE HCL 1 MG/ML INJ ONE ×4 (03:36→21:45)
[2019-10-03 04:05] LABS: Magnesium 1.5 mg/dL (1.8-2.4); Phosphorus 1.8 mg/dL (2.5-4.9); Potassium 4.1 mmol/L (3.5-5.1)
[2019-10-03] MEDS ORDERED: Magnesium Sulfate 2gm IVPB 2 G/50 ML BAG IV ONE (05:15)
[2019-10-03 05:24] LABS: Albumin 1.9 g/dL (3.4-5.0); Bilirubin Direct 0.2 mg/dL (0-0.2); Bilirubin Total 0.5 mg/dL (0.2-1.0); Protein, Total 6.1 g/dL (6.4-8.2)
[2019-10-03] MEDS ORDERED: NA CHLORIDE 0.9% 1,000 ML ONE (06:39)
[2019-10-03 07:29] LABS: LDL, Direct 50 mg/dL (100-129)
[2019-10-03] MEDS: carvediloL 6.25 MG TAB PO SCH (07:40)
[2019-10-03] MEDS ORDERED: carvediloL 6.25 MG TAB ONE (07:48)
[2019-10-03] MEDS ORDERED: ONDANSETRON 4 MG/2 ML VIAL ONE (07:49)
[2019-10-03] MEDS ORDERED: GLUCAGON 1 MG/VIAL IM PRN ×2 (08:03)
[2019-10-03] MEDS ORDERED: D50W 25 GM/50 ML SYRINGE/VIAL IV PRN ×2 (08:03)
[2019-10-03] MEDS: DOCOSAHEXANOIC AC/EPA 1000 MG PO SCH ×2 (08:11→21:00)
[2019-10-03] MEDS ORDERED: CALCIUM GLUC 10% INJ 4.65 MEQ in NA CHLORIDE 0.9% 100 ML IV ONE (08:15)
[2019-10-03] MEDS: gemfibroziL 600 MG TAB PO SCH (08:17)
[2019-10-03] MEDS: ENOXAPARIN 40 MG/0.4 ML SQ SCH (08:17)
[2019-10-03] MEDS ORDERED: PIPER/TAZO/NS 3.375gm 3.375 GM/100 ML BAG ONE (08:26)
[2019-10-03] MEDS ORDERED: ENOXAPARIN 40 MG/0.4 ML SQ ONE (08:26)
[2019-10-03] MEDS ORDERED: INSULIN GLARGINE 100 UNITS/ML SQ SCH (09:00)
[2019-10-03] MEDS ORDERED: SODIUM PHOSPHATE 30 MM in NA CHLORIDE 0.9% 500 ML IV ONE (09:00)
--- NOTE | 2019-10-03 09:57 | P.PN ---
Subjective Date of Service: 10/03/19 Chief Complaint: DKA Subjective: No new changes Review of Systems 10-point ROS is otherwise unremarkable Physical Examination - Vital Signs Temperature: 98.4 F Blood Pressure: 132/100 Pulse: 111 Respirations: 15 Pulse Ox (%): 94 - Physical Exam General: Alert, In no apparent distress, Obese HEENT: Atraumatic, Normocephalic Neck: Supple Respiratory: Clear to auscultation bilaterally Cardiovascular: Normal S1 S2, Other (Tachycardia) Capillary refill: <2 Seconds Gastrointestinal: Soft and benign, Tenderness Musculoskeletal: No clubbing, No swelling Integumentary: No rashes, No breakdown Neurological: Normal speech, Normal strength at 5/5 x4 extr Lymphatics: No axilla or inguinal lymphadenopathy - Studies Microbiology Data (last 24 hrs): 10/01/19 11:15 Clean Catch Urine [place] Count - Final BETWEEN 10,000 & 100,000 CFU/ML 10/01/19 11:15 Clean Catch Urine - Final MIXED [place]. Assessment & Plan - Problems (Diagnosis) (1) Acute pancreatitis Current Visit: Yes Status: Acute (2) Hypertriglyceridemia Current Visit: Yes Status: Acute (3) Diabetic ketoacidosis Onset Date: 02/24/17 Current Visit: No Status: Acute Qualifiers: Diabetes mellitus type: type 2 Diabetes mellitus complication detail: without coma Qualified Code(s): E11.10 - Type 2 diabetes mellitus with ketoacidosis without coma (4) Hyponatremia Onset Date: 03/19/18 Current Visit: No Status: Acute (5) Diabetes mellitus Onset Date: 03/19/18 Current Visit: No Status: Chronic Qualifiers: Diabetes mellitus type: type 2 Diabetes mellitus nursing home insulin use: without nursing home use Diabetes mellitus complication status: with ketoacidosis Diabetes mellitus complication detail: without coma Qualified Code(s): E11.10 - Type 2 diabetes mellitus with ketoacidosis without coma (6) Morbid obesity Onset Date: 03/19/18 Current Visit: No Status: Chronic Physician Review Additional Text: Diabetic ketoacidosis Acute pancreatitis due to hypertriglyceridemia Leukocytosis Hyperlipidemia Accelerated hypertension Intractable nausea and vomiting Diffuse abdominal pain Tachycardia Acute kidney injury Plan Pain control NPO IV hydration on insulin drip DKA protocol Monitor BMP q.4 hr Monitor electrolytes and correct accordingly Antihypertensives titrated Anti nausea medications Lipid panel noted Added on Lopid Monitor renal parameters Will start on empirical antibiotic Will get blood culture before antibiotic Nephrology consult GI/DVT prophylaxis 10/03/2019 Pain controlled well Stop insulin drip Will start on sliding scale and Lantus Monitor anion gap Continue Lopid Hypertriglyceridemia slightly better lipase trending down Will start on clear liquid diet and see how he tolerates Renal parameters slightly worsening Appreciate help from nephrology Monitor renal parameters Monitor electrolytes and correct accordingly Continue pain medications and anti nausea medications IV hydration Advice ambulation Advised about lifestyle modification Time Spent Managing Pts Care (In Minutes): 42
--- NOTE | 2019-10-03 10:10 | ECHO ---
HEIGHT: 5 ft 9 in WEIGHT: 330 lb 0 oz DATE OF STUDY: 10/02/[address]: Dick Rob MD 2-DIMENSIONAL: YES M.MODE: YES DOPPLER: YES COLOR FLOW: YES TDS: YES PORTABLE: NO DEFINITY: NO BUBBLE STUDY: NO DIAGNOSIS: LEFT VENTRICULAR FUNCTION CARDIAC HISTORY: CATHERIZATION: NO SURGERY: NO PROSTHETIC VALVE: NO PACEMAKER: NO MEASUREMENTS (cm) DIASTOLIC (NORMALS) SYSTOLIC (NORMALS) IVSd 1.2 (0.6-1.2) LA Diam (1.9-4.0) LVEF 60% LVIDd 4.0 (3.5-5.7) LVIDs 2.7 (2.0-3.5) %FS 32% LVPWd 1.5 (0.6-1.2) Ao Diam 3.1 (2.0-3.7) 2 DIMENSIONAL ASSESSMENT: RIGHT ATRIUM: NORMAL LEFT ATRIUM: NORMAL RIGHT VENTRICLE: NORMAL LEFT VENTRICLE: NORMAL TRICUSPID VALVE: NORMAL MITRAL VALVE: NORMAL PULMONIC VALVE: NORMAL AORTIC VALVE: NORMAL PERICARDIAL EFFUSION: NONE AORTIC ROOT: NORMAL LEFT VENTRICULAR WALL MOTION: NORMAL DOPPLER/COLOR FLOW: TRACE MITRAL AND TRICUSPID REGURGITATION. COMMENTS: NORMAL LEFT VENTRICULAR SIZE AND FUNCTION. SINUS TACHYCARDIA. TRACE MITRAL AND TRICUSPID REGURGITATION. NO EFFUSION. TECHNOLOGIST: Chuy SHAW
[2019-10-03] MEDS ORDERED: INSULIN -REGULAR HUMAN 50 UNIT/0.5 ML ML ONE (11:18)
[2019-10-03] MEDS ORDERED: INSULIN -REGULAR HUMAN 50 UNIT/0.5 ML ML SQ SCH (11:30)
[2019-10-03] MEDS ORDERED: NITROGLYCERIN/D5W 50 MG/250 ML BTL IV PRN (12:45)
[2019-10-03] MEDS: D5 0.9 NS 1,000 ML IV SCH (13:00)
[2019-10-03] MEDS ORDERED: NITROGLYCERIN/D5W 50 MG/250 ML BTL IV ONE (13:09)
[2019-10-03] MEDS: INSULIN -REGULAR HUMAN 100 UNIT in NA CHLORIDE 0.9% 100 ML IV SCH (14:08)
[2019-10-03] MEDS ORDERED: LIDOCAINE 1% 20 ML MDV ONE (14:27)
[2019-10-03] MEDS ORDERED: HEPARIN 500 UNIT/5 ML SYR IV ONE (14:28)
[2019-10-03] MEDS: PIPER/TAZO/NS 2.25gm 2.25 GM/50 ML BAG IV SCH (16:22)
--- NOTE | 2019-10-03 16:51 | CON ---
Date of Consultation: 10/03/2019 Reason For Consultation: Elevated BUN and creatinine, fluid management, acidosis. History Of Present Illness: This is a pleasant unfortunate 24-year-old gentleman with significant pa medical history of diabetes diagnosed a few years back. The patient had been treated on metformin , not compliant with his medication. Patient came to the hospital complaining of abdominal pain, mario sea and vomiting, found to have DKA with severe hypertriglyceride. Patient was treated as DKA. Then kidney function started declining. Upon arrival to the hospital, creatinine 1, gradually creatinine rise to 4. For that reason, we have been consulted. Reviewing the record, patient did not have any low blood pressure during this hospitalization. The lowest on the down to 99/55. Patient was on insulin drip up to today morning. Reviewing the record, patient on arrival to the hospital, dustin cardozo received IV contrast for the CT abdomen and pelvis, otherwise no other event. The CT abdomen and pelvis did not show any obstruction. Past Medical History: Includes, 1.Diabetes. 2.Morbid obesity. 3.Obesity. 4.Hypothyroidism. Allergies: NO KNOWN DRUGS ALLERGY. Home Medication: Metformin, but he is not taking it. Surgical History: Negative. Social History: Denies smoking. Denies drinking. Denies drugs abuse. Not working. Review of Systems: Head and Neck: No red eye. No ear pain. GI: Has nausea, vomiting, has abdominal pain. : No polyuria. No dysuria. No hematuria. Currently anuric. 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 Respiratory: Has shortness of breath Cardiovascular: No chest pain. Endocrine: No polydipsia. Skin: No rash. Neuro: Generalized weakness. Musculoskeletal: Generalized body ache. Physical Examination: Vital Signs: Blood pressure 122/89, pulse of 102 afebrile. Chest: Clear to auscultation. Heart: S1, S2. Regular. Abdomen: Morbidly obese. Tenderness. No guarding or rebound. Extremities: Trace edema. Neurologic: Alert, oriented x3. No focal. Laboratory Data: Sodium 141, potassium 4.1, bicarb 15, chloride 114, BUN of 22, creatinine 4, GFR of 18, calcium 6.5, phos 1.8, magnesium 1.5, albumin 1.9. Corrected calcium is 8.1, lipase 955. TSH 1 .6. Urinalysis, P/C ratio 2.1. No active sediment. ABG; pH 7.36, CO2 26, O2 88, -99 base excess. Renal ultrasound showing normal size kidney 12.5/9.7 with the echogenicity. Current Medications: The patient on include carvedilol 6.25 b.i.d., metoprolol p.r.n., Tylenol, sodi um bicarb drip. Fentanyl. Assessment And Plan: 1.Acute kidney injury, multifactorial, secondary to contrast induced nephropathy that was done on , superimposed with poor perfusion acute tubular necrosis, superimposed, questionable related t o hypertriglyceridemia. a.I can go ahead and discontinue phosphor supplement. b.I can put the patient back on insulin drip and nitroglycerin drip. c.We will proceed with hemodialysis as patient is anuric and start having some shortness of breath t o avoid any worsening of over volume. d.We will monitor the patient closely. 2.Diabetic ketoacidosis, recover, but currently has severe hypertriglyceridemia. For that reason, I am going to put the patient back on insulin drip till we reach a goal of better control of his trigl yceride. If triglyceride continue to be high, patient may need to have plasmapheresis to treat it. 3.Hypertriglyceridemia, as above. We will put the patient back on insulin drip. We will put the pa tient on nitroglycerin drip. I will decrease carvedilol to establish better blood pressure, and if t he patient fails on current regimen, patient may need plasmapheresis. 4.Disproportion in the kidney size 12.5/9.7. Currently, patient is anuric. We will review the CT s can with the radiologist to evaluate if patient had any renal artery issue. 5.Hypophosphatemia. Patient is asymptomatic. I am not going to proceed on any supplement. 6.Pancreatitis secondary to hypertriglyceridemia. Please keep patient currently n.p.o. We will sandra ce the patient on insulin drip again to control his triglyceride and we will follow up. 7.Diabetes as above. 8.Acidosis secondary to renal failure. Continue bicarb drip. Patient will have dialysis, is going to be corrected with dialysis. 9.Hypocalcemia given the pancreatitis. As the patient is not symptomatic, not going to be supplemen rian for the time being. We will follow up. DM Voice ID: [id number] Report ID: [id number]
[2019-10-03] MEDS ORDERED: HEPARIN 10,000 UNIT/10 ML VIAL IV PRN (20:10)
[2019-10-03] MEDS ORDERED: ATORVASTATIN 20 MG TAB ONE (20:49)
[2019-10-03] MEDS ORDERED: ATORVASTATIN 80 MG TAB PO SCH (21:00)
[2019-10-03] MEDS: carvediloL 3.125 MG TAB PO SCH (21:07)
[2019-10-04] MEDS ORDERED: D5 0.9 NS 1,000 ML IV ONE (00:40)
[2019-10-04] MEDS: D5 0.9 NS 1,000 ML IV SCH ×2 (00:59→15:40)
[2019-10-04] MEDS: PIPER/TAZO/NS 2.25gm 2.25 GM/50 ML BAG IV SCH ×3 (00:59→16:57)
--- NOTE | 2019-10-04 01:52 | CON ---
Date of Consultation: 10/03/2019 Diagnosis: End-stage renal disease, need for hemodialysis catheter. History Of Present Illness: This is the case of a 24 years old patient, recently diagnosed with magui l failure, the patient has history of diabetes and morbid obesity. They understand the patient needs dialysis so they called surgical consult for tunneled hemodialysis catheter. Allergies: NONE. Surgeries: None. Medical History: Diabetes, hypothyroidism, and morbid obesity. Family History: Noncontributory. Review of Systems: No shortness of breath. No chest pain. No fever. Ten points otherwise unremarkable. See my H and P. Physical Examination: General: The patient is awake and alert. HEENT: Pupils are equal and reactive, anicteric. Neck: Supple. Chest: Clear. Heart: S1 and S2. Abdomen: Soft and depressible. No guarding or rebound. Extremities: Full range of motion. Rectal: Deferred. Laboratory Data: Blood work shows a WBC count from 23, came down to 14, with hemoglobin of 15.2, INR is 1.09. Glucose 256. Assessment: A 24 years old patient needing tunneled hemodialysis catheter. Benefits, alternatives, and risks of placement fully explained to the patient which include, but not limited to infection, bl eeding, damage to adjacent structures, anesthesia complication, hemothorax, pneumothorax, cardiac arr hythmias, pulmonary emboli, pericardial tamponade, [place] and even . He also understands this may n ot relieve any symptoms, he might need more than one surgical intervention. He understands that this is a temporary catheter and he needs to find if he is continuing on hemodialysis, a vascular clinic that does peripheral dialysis catheter. ADRIAN/CLAUDETTE Voice ID: [id number] Report ID: [id number]
[2019-10-04] MEDS: HYDROMORPHONE HCL 1 MG/ML INJ IV PRN ×3 (03:38→19:49)
[2019-10-04] MEDS ORDERED: HYDROMORPHONE HCL 1 MG/ML INJ ONE ×3 (03:48→19:40)
[2019-10-04] MEDS: INSULIN -REGULAR HUMAN 100 UNIT in NA CHLORIDE 0.9% 100 ML IV SCH (06:14)
[2019-10-04 06:20] LABS: Absolute Lymphocytes (CBC) 1.6 K/uL (0.7-4.9); Basophils % 0.5 % (0-1.3); Hematocrit 37.2 % (39.6-49.0); Lymphocytes % 14.2 % (15.3-44.8); RBC Red Blood Cell Count 4.66 M/uL (4.33-5.43)
[2019-10-04 06:25] VITALS: BMI 51.7
[2019-10-04 06:45] LABS: Albumin 1.8 g/dL (3.4-5.0); Phosphorus 4.8 mg/dL (2.5-4.9); Potassium 3.9 mmol/L (3.5-5.1); Thyroid Stimulating Hormone 0.612 uIU/mL (0.360-3.740); Uric Acid 13.1 mg/dL (3.5-7.2)
[2019-10-04 07:13] LABS: Blood Morphology Comment NOT SEEN (NOT SEEN); Platelet Estimate ADEQ; Platelets, Giant NOTED
[2019-10-04] MEDS: NA CHLORIDE 0.9% 1,000 ML IV SCH ×2 (07:19→16:57)
[2019-10-04] MEDS ORDERED: NA CHLORIDE 0.9% 1,000 ML ONE ×3 (07:28→17:07)
[2019-10-04] MEDS: DOCOSAHEXANOIC AC/EPA 1000 MG PO SCH (07:57)
[2019-10-04] MEDS: carvediloL 3.125 MG TAB PO SCH (07:57)
[2019-10-04] MEDS: ENOXAPARIN 30 MG/0.3 ML SQ SCH ×2 (08:06→08:10)
[2019-10-04] MEDS ORDERED: ENOXAPARIN 30 MG/0.3 ML SQ ONE (08:14)
[2019-10-04] MEDS ORDERED: CALCIUM GLUC 10% INJ 4.65 MEQ in NA CHLORIDE 0.9% 100 ML IV ONE (08:24)
--- NOTE | 2019-10-04 08:36 | P.PN ---
Subjective Date of Service: 10/04/19 Chief Complaint: DKA Subjective: No new changes Review of Systems 10-point ROS is otherwise unremarkable Physical Examination - Vital Signs Temperature: 98.1 F Blood Pressure: 150/105 Pulse: 105 Respirations: 19 Pulse Ox (%): 92 - Physical Exam General: Alert, In no apparent distress, Obese HEENT: Atraumatic, Normocephalic Neck: Supple Respiratory: Clear to auscultation bilaterally Cardiovascular: Regular rate/rhythm, Normal S1 S2 Capillary refill: <2 Seconds Gastrointestinal: Soft and benign, W/out hepatosplenomegaly Musculoskeletal: No clubbing, No swelling Integumentary: No rashes, No breakdown Neurological: Normal strength at 5/5 x4 extr Lymphatics: No axilla or inguinal lymphadenopathy - Studies Microbiology Data (last 24 hrs): 10/01/19 11:15 Clean Catch Urine [place] Count - Final BETWEEN 10,000 & 100,000 CFU/ML 10/01/19 11:15 Clean Catch Urine - Final MIXED [place]. Assessment & Plan - Problems (Diagnosis) (1) Acute pancreatitis Current Visit: Yes Status: Acute (2) Hypertriglyceridemia Current Visit: Yes Status: Acute (3) Diabetic ketoacidosis Onset Date: 02/24/17 Current Visit: No Status: Acute Qualifiers: Diabetes mellitus type: type 2 Diabetes mellitus complication detail: without coma Qualified Code(s): E11.10 - Type 2 diabetes mellitus with ketoacidosis without coma (4) Hyponatremia Onset Date: 03/19/18 Current Visit: No Status: Acute (5) Diabetes mellitus Onset Date: 03/19/18 Current Visit: No Status: Chronic Qualifiers: Diabetes mellitus type: type 2 Diabetes mellitus tank terminal gauger insulin use: without tank terminal gauger use Diabetes mellitus complication status: with ketoacidosis Diabetes mellitus complication detail: without coma Qualified Code(s): E11.10 - Type 2 diabetes mellitus with ketoacidosis without coma (6) Morbid obesity Onset Date: 03/19/18 Current Visit: No Status: Chronic Physician Review Additional Text: Diabetic ketoacidosis Acute pancreatitis due to hypertriglyceridemia Leukocytosis Hyperlipidemia Accelerated hypertension Intractable nausea and vomiting Diffuse abdominal pain Tachycardia Acute kidney injury Plan Pain control NPO IV hydration on insulin drip DKA protocol Monitor BMP q.4 hr Monitor electrolytes and correct accordingly Antihypertensives titrated Anti nausea medications Lipid panel noted Added on Lopid Monitor renal parameters Will start on empirical antibiotic Will get blood culture before antibiotic Nephrology consult GI/DVT prophylaxis 10/03/2019 Pain controlled well Stop insulin drip Will start on sliding scale and Lantus Monitor anion gap Continue Lopid Hypertriglyceridemia slightly better lipase trending down Will start on clear liquid diet and see how he tolerates Renal parameters slightly worsening Appreciate help from nephrology Monitor renal parameters Monitor electrolytes and correct accordingly Continue pain medications and anti nausea medications IV hydration Advice ambulation Advised about lifestyle modification Time Spent Managing Pts Care (In Minutes): 43
[2019-10-04] MEDS: ONDANSETRON 4 MG/2 ML VIAL IV PRN (09:18)
[2019-10-04] MEDS ORDERED: ONDANSETRON 4 MG/2 ML VIAL ONE (09:27)
--- NOTE | 2019-10-04 10:55 | P.PN ---
Subjective Date of Service: 10/04/19 Chief Complaint: DKA Subjective: No new changes Review of Systems 10-point ROS is otherwise unremarkable Physical Examination - Vital Signs Temperature: 98.1 F Blood Pressure: 124/84 Pulse: 100 Respirations: 19 Pulse Ox (%): 94 - Physical Exam General: Alert, Mild distress, Obese HEENT: Atraumatic, Normocephalic Neck: Supple Respiratory: Clear to auscultation bilaterally, Normal air movement Cardiovascular: Regular rate/rhythm, Normal S1 S2 Capillary refill: <2 Seconds Gastrointestinal: Soft and benign, W/out hepatosplenomegaly Musculoskeletal: No clubbing, No swelling Integumentary: No rashes Neurological: Normal speech, Other (Alert, Awake ) Lymphatics: No axilla or inguinal lymphadenopathy - Studies Microbiology Data (last 24 hrs): 10/01/19 11:15 Clean Catch Urine [place] Count - Final BETWEEN 10,000 & 100,000 CFU/ML 10/01/19 11:15 Clean Catch Urine - Final MIXED [place]. Assessment & Plan - Problems (Diagnosis) (1) Acute pancreatitis Current Visit: Yes Status: Acute (2) Hypertriglyceridemia Current Visit: Yes Status: Acute (3) Diabetic ketoacidosis Onset Date: 02/24/17 Current Visit: No Status: Acute Qualifiers: Diabetes mellitus type: type 2 Diabetes mellitus complication detail: without coma Qualified Code(s): E11.10 - Type 2 diabetes mellitus with ketoacidosis without coma (4) Hyponatremia Onset Date: 03/19/18 Current Visit: No Status: Acute (5) Diabetes mellitus Onset Date: 03/19/18 Current Visit: No Status: Chronic Qualifiers: Diabetes mellitus type: type 2 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: without halfway use Diabetes mellitus complication status: with ketoacidosis Diabetes mellitus complication detail: without coma Qualified Code(s): E11.10 - Type 2 diabetes mellitus with ketoacidosis without coma (6) Morbid obesity Onset Date: 03/19/18 Current Visit: No Status: Chronic Physician Review Additional Text: Diabetic ketoacidosis Acute pancreatitis due to hypertriglyceridemia Leukocytosis Hyperlipidemia Accelerated hypertension Intractable nausea and vomiting Diffuse abdominal pain : better Tachycardia : resolved Acute kidney injury Plan Pain controlled well insulin drip Monitor anion gap Continue Lopid Hypertriglyceridemia slightly better Renal parameters worsening Appreciate help from nephrology and surgery Getting a dialysis catheter placed Nephrology recommended dialysis Monitor renal parameters Monitor electrolytes and correct accordingly Continue pain medications and anti nausea medications IV hydration Advice ambulation Advised about lifestyle modification Time Spent Managing Pts Care (In Minutes): 42
[2019-10-04] MEDS ORDERED: NA CHLORIDE 0.9% 100 ML IV ONE (12:03)
[2019-10-04] MEDS ORDERED: HEPARIN 5000 UNIT/ML 1 ML VIAL ONE (12:03)
[2019-10-04] MEDS: LIDOCAINE 1% MPF 30 ML VIAL ONE ×2 (12:03→14:48)
[2019-10-04] MEDS ORDERED: FENTANYL CITR 100 MCG/2 ML ONE (12:10)
[2019-10-04] MEDS ORDERED: propofoL 200 MG/20 ML VIAL IV ONE ×3 (12:10→14:03)
[2019-10-04] MEDS ORDERED: MIDAZOLAM HCL 2 MG/2 ML INJ ONE (12:10)
[2019-10-04] MEDS ORDERED: LIDOCAINE 2% MPF 5 ML VIAL ONE (12:10)
[2019-10-04] MEDS ORDERED: NS 0.9% VIAL 10 ML ONE (12:37)
[2019-10-04] MEDS ORDERED: Phenylephrine HCl 10 MG/ML 1 ML VIAL ONE (13:16)
[2019-10-04] MEDS: HYDROMORPHONE HCL 1 MG/ML INJ ONE ×2 (15:23→15:30)
--- NOTE | 2019-10-04 15:30 | P.BOP ---
Preoperative diagnosis: ESRD, morbid obesity Postoperative diagnosis: same Primary procedure: Attempted hemodyalisis catheter right IJ vein and R femoral vein Secondary procedure: Right neck and R femoral ultrasound Other procedure(s): Fluoroscopy Estimated blood loss: <50cc Specimen: none Findings: unable to place catheter Anesthesia: MAC Complications: None Transferred to: Recovery Room Condition: Good
--- NOTE | 2019-10-04 15:47 | RAD REPORT ---
EXAM DESCRIPTION: RAD - Chest Single View - 10/04/2019 3:31 pm CLINICAL HISTORY: S P HEMO CATH PLACEMENTpost catheter placement Procedure exam COMPARISON: Portable March 15, 2018 TECHNIQUE: AP portable chest image was obtained 10/04/2019 3:31 pm . FINDINGS: Two images were obtained in supine positioning both suboptimal due to motion and low lung volumes. No large pneumothorax is present and no suspicion for a small pneumothorax on either examination. No gross pulmonary edema pattern. Cardiomediastinal silhouette is exaggerated by motion, supine position ing and low lung volumes. IMPRESSION: Limited supine portable imaging without evidence for pneumothorax.
[2019-10-04 16:11] VITALS: O2SAT 95
[2019-10-04 19:17] VITALS: TEMP 98.7
[2019-10-04 20:40] VITALS: BP 129/81
--- NOTE | 2019-10-04 21:06 | RAD REPORT ---
EXAM DESCRIPTION: RAD - Fluoroscopy <1 Hour - 10/04/2019 5:56 pm FINDINGS: There were 17 spot images obtained for I am going to a fluoroscopic assisted placement of vascular access catheter. No suspicious or unexpected finding. Fluoro time was 2.9 minutes. Cumulative dose was 66.3 mGy.
[2019-10-04 23:28] LABS: Rheumatoid Factor NEG (NEG)
--- NOTE | 2019-10-05 02:49 | OP ---
Date of Procedure: 10/04/2019 Surgeon: Francisco Hernandez MD Preoperative Diagnoses: Morbid obesity, end-stage renal disease. Postoperative Diagnoses: Morbid obesity, end-stage renal disease. Procedure: Attempt hemodialysis catheter placement. Anesthesia: MAC plus local. Indications: This is a case of a 24-year-old patient, who came to us with acute renal failure. The hemodialysis catheter was fully explained after it was requested by the primary doctor with benefits, alternatives, and risks including, but not limited to infection, bleeding, damage to adjacent struct ures, anesthesia complication, pneumothorax, hemothorax, cardiac arrhythmias, hematomas, DVTs, [place], an d even . They also understands this may not relieve the symptoms. He might need more than one surgical intervention. He understood and signed a consent. Description Of Procedure: The patient was brought to the operating room and placed in supine positio n. Anesthesia was done without complication. Right neck and chest were prepped and draped in a ster ile fashion. A time-out was called. Local anesthesia was applied. Ultrasound was done of the neck to localize the right internal jugular vein. An 18-gauge needle was placed in that area after placin g the patient in Trendelenburg position. We put the catheter with a guidewire. The neck is so thick , that it is kinking in the area of the neck and does not want to make the curve to go into the super ior vena cava. We attempted the procedure once again until we localized that due to the body habitus , the wire and it cannot go in good angle to go safe in that area, so we aborted that technique. Aft er that, we prepped and draped in the usual sterile fashion the right femoral region. Local anesthes ia was applied. A time-out was called. Once again, we used an ultrasound to localize the right femo ral vein and we placed the 18-gauge needle in the right femoral vein. Guidewire passed through into the inferior vena cava. We have to remember this patient is morbidly obese with a thick fibrin in th at area. So when we have a wire in the inferior vena cava, we cannot tunnel the catheter through the thick fatty tissue on his thigh and the wire was good. We attempted other introducer kit and nothin g can make the curve between the wire and the torque good enough to be able to go into the femoral ar ea safely. After not able to pass this vein, then we removed the wire from place, applied pressure f or 15 minutes. The patient tolerated that procedure well. I discussed the case with the renal docto r. We are not able in this institution to do this and at this moment, they may have to transfer the patient to a higher level of care including a vascular surgeon, who may require use of another techni que and instrument to be able to get this catheter placed, since unfortunately we cannot put in this institution after those multiple attempts. So, the procedure was aborted, the patient was sent to re covery in stable condition, pressure dressings were applied and then no bleeding seen. We identified the area once again, no bleeding. At that moment then, we proceeded to write the orders for an admi ssion and discussed with the patient need for a transfer to a higher level of care for the catheter p lacement. ADRIAN/CLAUDETTE Voice ID: [id number] Report ID: [id number]
[2019-10-08 16:50] LABS: HIV AG/AB 4TH GEN Non-reactive (Non-reactive)
[2019-10-09 05:47] LABS: HBsAG Nonreactive (Nonreactive)
[2019-10-09 15:30] LABS: Vitamin D 1,25-Dihydroxy Total 18 pg/mL (18-72); Vitamin D,1,25-OH2, D2 <8 pg/mL
[2019-10-10 23:18] LABS: Albumin, (SPE) 2.4 g/dL (3.8-4.8); Alpha-1-Globulins 0.6 g/dL (0.2-0.3); Alpha-2-Globulins 0.9 g/dL (0.5-0.9); Gamma Globulins 0.4 g/dL (0.8-1.7); INTERPRETATION REPORT
== END 2019-10-04 20:30 | disposition short-term general hospital (02) | DRG 637 ==
LOC: ER 08:58 → ERHOLD 12:41
PROVIDERS: ADMIT Family Medicine; ATTEND Family Medicine
PROC: B51W1ZA Fluoroscopy of Dialysis Shunt/Fistula using Low Osmolar Contrast, Guidance (ICD-10-PCS; principal; 2019-10-04 13:30)
DX: E11.10 Type 2 diabetes mellitus with ketoacidosis without coma (principal); K85.90 Acute pancreatitis without necrosis or infection, unspecified; Z68.44 Body mass index [BMI] 60.0-69.9, adult; N17.9 Acute kidney failure, unspecified; E87.1 Hypo-osmolality and hyponatremia; I10 Essential (primary) hypertension; E78.1 Pure hyperglyceridemia; R00.0 Tachycardia, unspecified; N14.1 Nephropathy induced by other drugs, medicaments and biological substances; E83.39 Other disorders of phosphorus metabolism; E83.51 Hypocalcemia; E66.01 Morbid (severe) obesity due to excess calories; D72.829 Elevated white blood cell count, unspecified; T50.8X5A Adverse effect of diagnostic agents, initial encounter; R06.02 Shortness of breath; Z20.828 Contact with and (suspected) exposure to other viral communicable diseases; Z79.84 Long term (current) use of oral hypoglycemic drugs
CPT/HCPCS: 36415; 71045; 74177; 76000; 76705; 76770; 76857; 80048; 80053; 80061; 80069; 80076; 81003; 81015; 82010; 82550; 82553; 82570; 82652; 82805; 82947; 83036; 83520; 83605; 83690; 83735; 83880; 83970; 84100; 84145; 84156; 84165; 84439; 84443; 84478; 84550; 85025; 85610; 85730; 86021; 86038; 86160; 86225; 86317; 86430; 86704; 86706; 87040; 87086; 87088; 87340; 87389; 87522; 93306; 96361; 96365; 96375; 99285; C9113; J0610; J0696; J1170; J1642; J1644; J1650; J2250; J2370; J2405; J2543; J2704; J3010; J3475; J3480; J7030; J7040; J7042; J7060; J7120; Q9967; U0002

== ENCOUNTER 2019-10-25 11:53 | Emergency (ER) | payer SELFPAY ==
--- OUTSIDE RECORDS SUMMARY | 2019-10-25 11:58 | XMS REPORT | Clinical Summary ---
:1995 Author Organization [facility] Address [address] [place] [address] Care Team Providers Name Role Phone Pcp Primary Care Provider Unavailable Allergies No Known Allergies Medications Medication Sig Dispensed Refills Start Date End Date Status carvediloL Take 1 tablet (12.5 60 tablet 0 10/23/2019 11/22/19 Active (COREG) 12.5 MG mg total) by mouth 20 tablet 2 (two) times daily for 30 days. calcium carbonate Take 2 tablets 60 tablet 0 10/23/2019 Active (TUMS) 500 mg (1,000 mg total) by 20 chewable tablet mouth 3 (three) times daily as needed for up to 30 days. atorvastatin Take 1 tablet (40 30 tablet 0 10/23/2019 11/22/19 Active (LIPITOR) 40 MG mg total) by mouth 20 tablet nightly for 30 days. insulin glargine Inject 15 Units 9 mL 0 10/23/2019 Active (LANTUS) 100 subcutaneously 2 20 unit/mL syringe (two) times daily for 30 days Use as directed. NIFEdipine Take 1 tablet (30 30 tablet 0 10/24/2019 11/23/19 Active (ADALAT CC) 30 MG mg total) by mouth 20 24 hr tablet daily for 30 days. metFORMIN Take 500 mg by 0 09/19/2019 10/23/19 Disc ontinued (GLUCOPHAGE) 500 mouth every 12 20 MG tablet (twelve) hours. 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 Never 10/04/2019 How many drinks containing alcohol do you have on a typical Not asked day when you are drinking? How often do you have six or more drinks on one occasion? No t asked Stress Answer Date Recorded Do you feel stress - tense, restless, nervous, or To some ex tent 10/05/2019 anxious, or unable to sleep at night because your mind is troubled all the time - these days? Financial Resource Strain Answer Date Recorded How hard is it for you to pay for the very basics like Somew hat hard 10/05/2019 food, housing, medical care, and heating? Sex Assigned at Date Recorded Not on file Job Start Date Occupation Industry Not on file Not on file Not on file Travel History Travel Start Travel End No recent travel history available. Last Filed Vital Signs Vital Sign Reading Time Taken Blood Pressure 134/81 10/23/2019 11:41 AM CDT Pulse 94 10/23/2019 11:41 AM CDT Temperature 36.7 C (98 F) 10/23/2019 11:41 AM CDT Respiratory Rate 20 10/23/2019 11:41 AM CDT Oxygen Saturation 99% 10/23/2019 11:41 AM CDT Inhaled Oxygen Concentration 21% 10/05/2019 11:40 AM CDT Weight 147.1 kg (324 lb 3.2 oz) 10/23/2019 4:4 9 AM CDT Height 177.8 cm (5' 10") 10/06/2019 5:55 PM CDT Body Mass Index 46.52 10/23/2019 4:49 AM CDT Plan of Treatment Not on file Procedures Procedure Name Priority Date/Time Associated Comments Diagnosis POCT-GLUCOSE METER Routine 10/23/2019 11:14 Resul ts for this AM CDT procedure are i n the results section. POCT-GLUCOSE METER Routine 10/23/2019 5:48 Resul ts for this AM CDT procedure are i n the results section. CBC W/PLT COUNT & AUTO Routine 10/23/2019 5:30 R esults for this DIFFERENTIAL AM CDT procedure are i n the results section. COMPREHENSIVE Routine 10/23/2019 5:30 Results fo r this METABOLIC PANEL AM CDT procedure ar e in the results section. CBC W/PLT COUNT & AUTO Routine 10/23/2019 5:30 R esults for this DIFFERENTIAL AM CDT procedure are i n the results section. POCT-GLUCOSE METER Routine 10/22/2019 8:50 Resul ts for this PM CDT procedure are i n the results section. POCT-GLUCOSE METER Routine 10/22/2019 4:33 Resul ts for this PM CDT procedure are i n the results section. POCT-GLUCOSE METER Routine 10/22/2019 11:31 Resul ts for this AM CDT procedure are i n the results section. CBC W/PLT COUNT & AUTO Routine 10/22/2019 5:54 R esults for this DIFFERENTIAL AM CDT procedure are i n the results section. COMPREHENSIVE Routine 10/22/2019 5:54 Results fo r this METABOLIC PANEL AM CDT procedure ar e in the results section. CBC W/PLT COUNT & AUTO Routine 10/22/2019 5:54 R esults for this DIFFERENTIAL AM CDT procedure are i n the results section. POCT-GLUCOSE METER Routine 10/22/2019 5:46 Resul ts for this AM CDT procedure are i n the results section. POCT-GLUCOSE METER Routine 10/21/2019 8:16 Resul ts for this PM CDT procedure are i n the results section. POCT-GLUCOSE METER Routine 10/21/2019 4:54 Resul ts for this PM CDT procedure are i n the results section. POCT-GLUCOSE METER Routine 10/21/2019 12:34 Resul ts for this PM CDT procedure are i n the results section. XR CHEST 1 VIEW Routine 10/21/2019 10:17 Results for this PORTABLE/BEDSIDE AM CDT procedure a re in the results section. POCT-GLUCOSE METER Routine 10/21/2019 6:09 Resul ts for this AM CDT procedure are i n the results section. CBC W/PLT COUNT & AUTO Routine 10/21/2019 5:59 R esults for this DIFFERENTIAL AM CDT procedure are i n the results section. COMPREHENSIVE Routine 10/21/2019 5:59 Results fo r this METABOLIC PANEL AM CDT procedure ar e in the results section. CBC W/PLT COUNT & AUTO Routine 10/21/2019 5:59 R esults for this DIFFERENTIAL AM CDT procedure are i n the results section. POCT-GLUCOSE METER Routine 10/20/2019 9:10 Resul ts for this PM CDT procedure are i n the results section. HEMODIALYSIS INPATIENT Routine 10/20/2019 4:52 PM CDT POCT-GLUCOSE METER Routine 10/20/2019 4:33 Resul ts for this PM CDT procedure are i n the results section. POCT-GLUCOSE METER Routine 10/20/2019 11:54 Resul ts for this AM CDT procedure are i n the results section. POCT-GLUCOSE METER Routine 10/20/2019 5:32 Resul ts for this AM CDT procedure are i n the results section. COMPREHENSIVE Routine 10/20/2019 5:10 Results fo r this METABOLIC PANEL AM CDT procedure ar e in the results section. POCT-GLUCOSE METER Routine 10/19/2019 9:31 Resul ts for this PM CDT procedure are i n the results section. POCT-GLUCOSE METER Routine 10/19/2019 4:43 Resul ts for this PM CDT procedure are i n the results section. POCT-GLUCOSE METER Routine 10/19/2019 12:46 Resul ts for this PM CDT procedure are i n the results section. CBC W/PLT COUNT & AUTO Routine 10/19/2019 9:44 R esults for this DIFFERENTIAL AM CDT procedure are i n the results section. CBC W/PLT COUNT & AUTO Routine 10/19/2019 9:44 R esults for this DIFFERENTIAL AM CDT procedure are i n the results section. POCT-GLUCOSE METER Routine 10/19/2019 5:52 Resul ts for this AM CDT procedure are i n the results section. POCT-GLUCOSE METER Routine 10/18/2019 8:48 Resul ts for this PM CDT procedure are i n the results section. POCT-GLUCOSE METER Routine 10/18/2019 4:18 Resul ts for this PM CDT procedure are i n the results section. HEMODIALYSIS INPATIENT Routine 10/18/2019 2:19 PM CDT POCT-GLUCOSE METER Routine 10/18/2019 11:07 Resul ts for this AM CDT procedure are i n the results section. POCT-GLUCOSE METER Routine 10/18/2019 5:36 Resul ts for this AM CDT procedure are i n the results section. CBC W/PLT COUNT & AUTO Routine 10/18/2019 4:36 R esults for this DIFFERENTIAL AM CDT procedure are i n the results section. COMPREHENSIVE Routine 10/18/2019 4:36 Results fo r this METABOLIC PANEL AM CDT procedure ar e in the results section. CBC W/PLT COUNT & AUTO Routine 10/18/2019 4:36 R esults for this DIFFERENTIAL AM CDT procedure are i n the results section. POCT-GLUCOSE METER Routine 10/17/2019 8:25 Resul ts for this PM CDT procedure are i n the results section. TRANSFUSION SERVICE 10/17/2019 6:06 REPORT - SCAN PM CDT POCT-GLUCOSE METER Routine 10/17/2019 4:41 Resul ts for this PM CDT procedure are i n the results section. POCT-GLUCOSE METER Routine 10/17/2019 11:27 Resul ts for this AM CDT procedure are i n the results section. POCT-GLUCOSE METER Routine 10/17/2019 5:56 Resul ts for this AM CDT procedure are i n the results section. CBC W/PLT COUNT & AUTO Routine 10/17/2019 3:40 R esults for this DIFFERENTIAL AM CDT procedure are i n the results section. COMPREHENSIVE Routine 10/17/2019 3:40 Results fo r this METABOLIC PANEL AM CDT procedure ar e in the results section. CBC W/PLT COUNT & AUTO Routine 10/17/2019 3:40 R esults for this DIFFERENTIAL AM CDT procedure are i n the results section. PREPARE LEUKO-REDUCED Routine 10/16/2019 11:54 Re sults for this RBC PM CDT procedure are i n the results section. POCT-GLUCOSE METER Routine 10/16/2019 9:05 Resul ts for this PM CDT procedure are i n the results section. TRANSFUSION SERVICE 10/16/2019 6:06 REPORT - SCAN PM CDT POCT-GLUCOSE METER Routine 10/16/2019 5:22 Resul ts for this PM CDT procedure are i n the results section. IR TUNNELED DIALYSIS Routine 10/16/2019 4:41 Res ults for this CATHETER PM CDT procedure are i n the results section. POCT-GLUCOSE METER Routine 10/16/2019 11:44 Resul ts for this AM CDT procedure are i n the results section. HEMODIALYSIS INPATIENT Routine 10/16/2019 7:54 AM CDT POCT-GLUCOSE METER Routine 10/16/2019 6:06 Resul ts for this AM CDT procedure are i n the results section. CBC W/PLT COUNT & AUTO Routine 10/16/2019 5:10 R esults for this DIFFERENTIAL AM CDT procedure are i n the results section. LIPASE Add-On 10/16/2019 5:10 Results for this AM CDT procedure are i n the results section. COMPREHENSIVE Routine 10/16/2019 5:10 Results fo r this METABOLIC PANEL AM CDT procedure ar e in the results section. CBC W/PLT COUNT & AUTO Routine 10/16/2019 5:10 R esults for this DIFFERENTIAL AM CDT procedure are i n the results section. POCT-GLUCOSE METER Routine 10/15/2019 8:49 Resul ts for this PM CDT procedure are i n the results section. TRANSFUSE Routine 10/15/2019 5:33 LEUKO-REDUCED RED PM CDT BLOOD CELLS POCT-GLUCOSE METER Routine 10/15/2019 3:46 Resul ts for this PM CDT procedure are i n the results section. TRANSFUSE Routine 10/15/2019 2:15 LEUKO-REDUCED RED PM CDT BLOOD CELLS POCT-GLUCOSE METER Routine 10/15/2019 12:05 Resul ts for this PM CDT procedure are i n the results section. ABORH, MANUAL STAT 10/15/2019 9:34 Results fo r this AM CDT procedure are i n the results section. TYPE AND SCREEN, Routine 10/15/2019 8:17 Results for this AUTOMATED AM CDT procedure are i n the results section. CBC W/PLT COUNT & AUTO Routine 10/15/2019 6:14 R esults for this DIFFERENTIAL AM CDT procedure are i n the results section. LIPASE Add-On 10/15/2019 6:14 Results for this AM CDT procedure are i n the results section. AMYLASE Add-On 10/15/2019 6:14 Results for this AM CDT procedure are i n the results section. CBC W/PLT COUNT & AUTO Routine 10/15/2019 6:14 R esults for this DIFFERENTIAL AM CDT procedure are i n the results section. BASIC METABOLIC PANEL Routine 10/15/2019 6:14 Re sults for this (7) AM CDT procedure are i n the results section. POCT-GLUCOSE METER Routine 10/15/2019 5:26 Resul ts for this AM CDT procedure are i n the results section. POCT-GLUCOSE METER Routine 10/14/2019 9:00 Resul ts for this PM CDT procedure are i n the results section. POCT-GLUCOSE METER Routine 10/14/2019 6:13 Resul ts for this PM CDT procedure are i n the results section. XR CHEST 1 VIEW Routine 10/14/2019 2:06 Results for this PORTABLE/BEDSIDE PM CDT procedure a re in the results section. HEMODIALYSIS INPATIENT Routine 10/14/2019 11:31 AM CDT POCT-GLUCOSE METER Routine 10/14/2019 11:03 Resul ts for this AM CDT procedure are i n the results section. POCT-GLUCOSE METER Routine 10/14/2019 6:48 Resul ts for this AM CDT procedure are i n the results section. BASIC METABOLIC PANEL Routine 10/14/2019 5:34 Re sults for this (7) AM CDT procedure are i n the results section. POCT-GLUCOSE METER Routine 10/13/2019 8:55 Resul ts for this PM CDT procedure are i n the results section. POCT-GLUCOSE METER Routine 10/13/2019 4:27 Resul ts for this PM CDT procedure are i n the results section. POCT-GLUCOSE METER Routine 10/13/2019 12:22 Resul ts for this PM CDT procedure are i n the results section. POCT-GLUCOSE METER Routine 10/13/2019 6:13 Resul ts for this AM CDT procedure are i n the results section. PROCALCITONIN Routine 10/13/2019 5:14 Results fo r this AM CDT procedure are i n the results section. TRIGLYCERIDES Routine 10/13/2019 5:14 Results fo r this AM CDT procedure are i n the results section. BASIC METABOLIC PANEL Routine 10/13/2019 5:14 Re sults for this (7) AM CDT procedure are i n the results section. CBC (HEMOGRAM ONLY) Routine 10/13/2019 5:14 Resu lts for this AM CDT procedure are i n the results section. POCT-GLUCOSE METER Routine 10/12/2019 8:36 Resul ts for this PM CDT procedure are i n the results section. POCT-GLUCOSE METER Routine 10/12/2019 4:33 Resul ts for this PM CDT procedure are i n the results section. POCT-GLUCOSE METER Routine 10/12/2019 11:55 Resul ts for this AM CDT procedure are i n the results section. POCT-GLUCOSE METER Routine 10/12/2019 5:51 Resul ts for this AM CDT procedure are i n the results section. LIPASE Routine 10/12/2019 4:42 Results for this AM CDT procedure are i n the results section. AMYLASE Routine 10/12/2019 4:42 Results for this AM CDT procedure are i n the results section. MAGNESIUM Routine 10/12/2019 4:42 Results for this AM CDT procedure are i n the results section. POCT-GLUCOSE METER Routine 10/11/2019 8:38 Resul ts for this PM CDT procedure are i n the results section. BLOOD CULTURE Routine 10/11/2019 6:44 Results fo r this PM CDT procedure are i n the results section. POCT-GLUCOSE METER Routine 10/11/2019 4:59 Resul ts for this PM CDT procedure are i n the results section. POCT-GLUCOSE METER Routine 10/11/2019 12:11 Resul ts for this PM CDT procedure are i n the results section. POCT-GLUCOSE METER Routine 10/11/2019 5:39 Resul ts for this AM CDT procedure are i n the results section. (MANUAL DIFFERENTIAL) Routine 10/11/2019 5:32 Re sults for this AM CDT procedure are i n the results section. CBC W/PLT COUNT & AUTO Routine 10/11/2019 5:32 R esults for this DIFFERENTIAL AM CDT procedure are i n the results section. CBC W/PLT COUNT & AUTO Routine 10/11/2019 5:32 R esults for this DIFFERENTIAL AM CDT procedure are i n the results section. LIPASE Routine 10/11/2019 5:32 Results for this AM CDT procedure are i n the results section. AMYLASE Routine 10/11/2019 5:32 Results for this AM CDT procedure are i n the results section. MAGNESIUM Routine 10/11/2019 5:32 Results for this AM CDT procedure are i n the results section. COMPREHENSIVE Routine 10/11/2019 5:32 Results fo r this METABOLIC PANEL AM CDT procedure ar e in the results section. POCT-GLUCOSE METER Routine 10/10/2019 8:33 Resul ts for this PM CDT procedure are i n the results section. POCT-GLUCOSE METER Routine 10/10/2019 4:16 Resul ts for this PM CDT procedure are i n the results section. HEPATITIS B CORE Routine 10/10/2019 2:35 Results for this ANTIBODY, TOTAL PM CDT procedure ar e in the results section. POCT-GLUCOSE METER Routine 10/10/2019 11:05 Resul ts for this AM CDT procedure are i n the results section. HEMODIALYSIS INPATIENT Routine 10/10/2019 9:49 AM CDT POCT-GLUCOSE METER Routine 10/10/2019 5:21 Resul ts for this AM CDT procedure are i n the results section. (MANUAL DIFFERENTIAL) Routine 10/10/2019 5:10 Re sults for this AM CDT procedure are i n the results section. CBC W/PLT COUNT & AUTO Routine 10/10/2019 5:10 R esults for this DIFFERENTIAL AM CDT procedure are i n the results section. LIPASE Routine 10/10/2019 5:10 Results for this AM CDT procedure are i n the results section. AMYLASE Routine 10/10/2019 5:10 Results for this AM CDT procedure are i n the results section. MAGNESIUM Routine 10/10/2019 5:10 Results for this AM CDT procedure are i n the results section. COMPREHENSIVE Routine 10/10/2019 5:10 Results fo r this METABOLIC PANEL AM CDT procedure ar e in the results section. CBC W/PLT COUNT & AUTO Routine 10/10/2019 5:10 R esults for this DIFFERENTIAL AM CDT procedure are i n the results section. POCT-GLUCOSE METER Routine 10/09/2019 8:44 Resul ts for this PM CDT procedure are i n the results section. HEMODIALYSIS INPATIENT Routine 10/09/2019 6:50 PM CDT POCT-GLUCOSE METER Routine 10/09/2019 4:41 Resul ts for this PM CDT procedure are i n the results section. AMYLASE Routine 10/09/2019 3:09 Results for this PM CDT procedure are i n the results section. LIPASE Routine 10/09/2019 3:09 Results for this PM CDT procedure are i n the results section. CT ABDOMEN/PELVIS WITH Routine 10/09/2019 2:18 R esults for this IV CONTRAST PM CDT procedure are i n the results section. CT CHEST WITH IV Routine 10/09/2019 2:18 Results for this CONTRAST PM CDT procedure are i n the results section. POCT-GLUCOSE METER Routine 10/09/2019 11:21 Resul ts for this AM CDT procedure are i n the results section. POCT-GLUCOSE METER Routine 10/09/2019 6:19 Resul ts for this AM CDT procedure are i n the results section. (MANUAL DIFFERENTIAL) Routine 10/09/2019 5:09 Re sults for this AM CDT procedure are i n the results section. CBC W/PLT COUNT & AUTO Routine 10/09/2019 5:09 R esults for this DIFFERENTIAL AM CDT procedure are i n the results section. COMPREHENSIVE Routine 10/09/2019 5:09 Results fo r this METABOLIC PANEL AM CDT procedure ar e in the results section. CBC W/PLT COUNT & AUTO Routine 10/09/2019 5:09 R esults for this DIFFERENTIAL AM CDT procedure are i n the results section. POCT-GLUCOSE METER Routine 10/08/2019 8:59 Resul ts for this PM CDT procedure are i n the results section. BLOOD CULTURE Routine 10/08/2019 5:05 Results fo r this PM CDT procedure are i n the results section. C-REACTIVE PROTEIN Routine 10/08/2019 4:51 Resul ts for this PM CDT procedure are i n the results section. BLOOD CULTURE Routine 10/08/2019 4:51 Results fo r this PM CDT procedure are i n the results section. URINALYSIS MICROSCOPIC Routine 10/08/2019 4:36 R esults for this PM CDT procedure are i n the results section. URINALYSIS WITH Routine 10/08/2019 4:36 Results for this MICROSCOPIC IF PM CDT procedure are in INDICATED the results section. C. DIFFICILE GDH TOXIN Routine 10/08/2019 4:36 R esults for this PM CDT procedure are i n the results section. POCT-GLUCOSE METER Routine 10/08/2019 4:30 Resul ts for this PM CDT procedure are i n the results section. XR CHEST 1 VIEW Routine 10/08/2019 1:44 Results for this PORTABLE/BEDSIDE PM CDT procedure a re in the results section. POCT-GLUCOSE METER Routine 10/08/2019 11:15 Resul ts for this AM CDT procedure are i n the results section. POCT-GLUCOSE METER Routine 10/08/2019 5:56 Resul ts for this AM CDT procedure are i n the results section. (MANUAL DIFFERENTIAL) Routine 10/08/2019 5:14 Re sults for this AM CDT procedure are i n the results section. CBC W/PLT COUNT & AUTO Routine 10/08/2019 5:14 R esults for this DIFFERENTIAL AM CDT procedure are i n the results section. TRIGLYCERIDES Add-On 10/08/2019 5:14 Results fo r this AM CDT procedure are i n the results section. CBC W/PLT COUNT & AUTO Routine 10/08/2019 5:14 R esults for this DIFFERENTIAL AM CDT procedure are i n the results section. BASIC METABOLIC PANEL Routine 10/08/2019 5:14 Re sults for this (7) AM CDT procedure are i n the results section. POCT-GLUCOSE METER Routine 10/08/2019 1:00 Resul ts for this AM CDT procedure are i n the results section. POCT-GLUCOSE METER Routine 10/07/2019 9:13 Resul ts for this PM CDT procedure are i n the results section. POCT-GLUCOSE METER Routine 10/07/2019 4:42 Resul ts for this PM CDT procedure are i n the results section. POCT-GLUCOSE METER Routine 10/07/2019 12:16 Resul ts for this PM CDT procedure are i n the results section. POCT-GLUCOSE METER Routine 10/07/2019 6:51 Resul ts for this AM CDT procedure are i n the results section. (MANUAL DIFFERENTIAL) Routine 10/07/2019 5:58 Re sults for this AM CDT procedure are i n the results section. CBC W/PLT COUNT & AUTO Routine 10/07/2019 5:58 R esults for this DIFFERENTIAL AM CDT procedure are i n the results section. MAGNESIUM Routine 10/07/2019 5:58 Results for this AM CDT procedure are i n the results section. CBC W/PLT COUNT & AUTO Routine 10/07/2019 5:58 R esults for this DIFFERENTIAL AM CDT procedure are i n the results section. COMPREHENSIVE Routine 10/07/2019 5:58 Results fo r this METABOLIC PANEL AM CDT procedure ar e in the results section. POCT-GLUCOSE METER Routine 10/07/2019 3:33 Resul ts for this AM CDT procedure are i n the results section. POCT-GLUCOSE METER Routine 10/07/2019 12:14 Resul ts for this AM CDT procedure are i n the results section. POCT-GLUCOSE METER Routine 10/06/2019 9:54 Resul ts for this PM CDT procedure are i n the results section. POCT-GLUCOSE METER Routine 10/06/2019 4:15 Resul ts for this PM CDT procedure are i n the results section. HEMODIALYSIS INPATIENT Routine 10/06/2019 12:24 PM CDT POCT-GLUCOSE METER Routine 10/06/2019 12:15 Resul ts for this PM CDT procedure are i n the results section. POCT-GLUCOSE METER Routine 10/06/2019 11:03 Resul ts for this AM CDT procedure are i n the results section. HEMODIALYSIS INPATIENT Routine 10/06/2019 10:19 AM CDT POCT-GLUCOSE METER Routine 10/06/2019 9:58 Resul ts for this AM CDT procedure are i n the results section. KETONE, BLOOD Routine 10/06/2019 9:29 Results fo r this AM CDT procedure are i n the results section. POCT-GLUCOSE METER Routine 10/06/2019 9:01 Resul ts for this AM CDT procedure are i n the results section. POCT-GLUCOSE METER Routine 10/06/2019 7:50 Resul ts for this AM CDT procedure are i n the results section. POCT-GLUCOSE METER Routine 10/06/2019 6:38 Resul ts for this AM CDT procedure are i n the results section. POCT-GLUCOSE METER Routine 10/06/2019 5:40 Resul ts for this AM CDT procedure are i n the results section. POCT-GLUCOSE METER Routine 10/06/2019 4:33 Resul ts for this AM CDT procedure are i n the results section. (MANUAL DIFFERENTIAL) Routine 10/06/2019 4:28 Re sults for this AM CDT procedure are i n the results section. CBC W/PLT COUNT & AUTO Routine 10/06/2019 4:28 R esults for this DIFFERENTIAL AM CDT procedure are i n the results section. CBC W/PLT COUNT & AUTO Routine 10/06/2019 4:28 R esults for this DIFFERENTIAL AM CDT procedure are i n the results section. PHOSPHORUS Routine 10/06/2019 4:25 Results for this AM CDT procedure are i n the results section. BASIC METABOLIC PANEL Routine 10/06/2019 4:25 Re sults for this (7) AM CDT procedure are i n the results section. POCT-GLUCOSE METER Routine 10/06/2019 2:13 Resul ts for this AM CDT procedure are i n the results section. POCT-GLUCOSE METER Routine 10/06/2019 1:03 Resul ts for this AM CDT procedure are i n the results section. POCT-GLUCOSE METER Routine 10/05/2019 11:59 Resul ts for this PM CDT procedure are i n the results section. BASIC METABOLIC PANEL Routine 10/05/2019 11:53 Re sults for this (7) PM CDT procedure are i n the results section. POCT-GLUCOSE METER Routine 10/05/2019 10:58 Resul ts for this PM CDT procedure are i n the results section. POCT-GLUCOSE METER Routine 10/05/2019 10:24 Resul ts for this PM CDT procedure are i n the results section. POCT-GLUCOSE METER Routine 10/05/2019 9:30 Resul ts for this PM CDT procedure are i n the results section. BASIC METABOLIC PANEL Routine 10/05/2019 8:25 Re sults for this (7) PM CDT procedure are i n the results section. POCT-GLUCOSE METER Routine 10/05/2019 7:55 Resul ts for this PM CDT procedure are i n the results section. POCT-GLUCOSE METER Routine 10/05/2019 6:57 Resul ts for this PM CDT procedure are i n the results section. POCT-GLUCOSE METER Routine 10/05/2019 6:13 Resul ts for this PM CDT procedure are i n the results section. POCT-GLUCOSE METER Routine 10/05/2019 3:45 Resul ts for this PM CDT procedure are i n the results section. IR NON-TUNNELED RENITA 10/05/2019 2:55 Results for this DIALYSIS CATHETER PM CDT procedure are in INSERTION the results section. BASIC METABOLIC PANEL Routine 10/05/2019 1:20 Re sults for this (7) PM CDT procedure are i n the results section. HEPATITIS B SURFACE Routine 10/05/2019 1:20 Resu lts for this ANTIBODY PM CDT procedure are i n the results section. HEPATITIS B SURFACE Routine 10/05/2019 1:20 Resu lts for this ANTIGEN PM CDT procedure are i n the results section. BASIC METABOLIC PANEL Routine 10/05/2019 1:20 Re sults for this (7) PM CDT procedure are i n the results section. POCT-GLUCOSE METER Routine 10/05/2019 12:01 Resul ts for this PM CDT procedure are i n the results section. POCT-GLUCOSE METER Routine 10/05/2019 10:28 Resul ts for this AM CDT procedure are i n the results section. HEMODIALYSIS INPATIENT Routine 10/05/2019 9:52 AM CDT POCT-GLUCOSE METER Routine 10/05/2019 9:35 Resul ts for this AM CDT procedure are i n the results section. FIBRINOGEN Routine 10/05/2019 8:09 Results for this AM CDT procedure are i n the results section. APTT Routine 10/05/2019 8:09 Results for this AM CDT procedure are i n the results section. PROTHROMBIN TIME/INR Routine 10/05/2019 8:09 Res ults for this AM CDT procedure are i n the results section. (MANUAL DIFFERENTIAL) Routine 10/05/2019 8:06 Re sults for this AM CDT procedure are i n the results section. CBC W/PLT COUNT & AUTO Routine 10/05/2019 8:06 R esults for this DIFFERENTIAL AM CDT procedure are i n the results section. LIPID PANEL Add-On 10/05/2019 8:06 Results for this AM CDT procedure are i n the results section. MAGNESIUM Routine 10/05/2019 8:06 Results for this AM CDT procedure are i n the results section. COMPREHENSIVE Routine 10/05/2019 8:06 Results fo r this METABOLIC PANEL AM CDT procedure ar e in the results section. CBC W/PLT COUNT & AUTO Routine 10/05/2019 8:06 R esults for this DIFFERENTIAL AM CDT procedure are i n the results section. POCT-GLUCOSE METER Routine 10/05/2019 8:00 Resul ts for this AM CDT procedure are i n the results section. POCT-GLUCOSE METER Routine 10/05/2019 6:56 Resul ts for this AM CDT procedure are i n the results section. POCT-GLUCOSE METER Routine 10/05/2019 6:00 Resul ts for this AM CDT procedure are i n the results section. XR CHEST 1 VIEW Routine 10/05/2019 5:35 Results for this PORTABLE/BEDSIDE AM CDT procedure a re in the results section. BLOOD GAS, ARTERIAL STAT 10/05/2019 5:29 Resu lts for this AM CDT procedure are i n the results section. POCT-GLUCOSE METER Routine 10/05/2019 5:02 Resul ts for this AM CDT procedure are i n the results section. POCT-GLUCOSE METER Routine 10/05/2019 3:58 Resul ts for this AM CDT procedure are i n the results section. POCT-GLUCOSE METER Routine 10/05/2019 2:56 Resul ts for this AM CDT procedure are i n the results section. POCT-GLUCOSE METER Routine 10/05/2019 2:06 Resul ts for this AM CDT procedure are i n the results section. POCT-GLUCOSE METER Routine 10/05/2019 1:02 Resul ts for this AM CDT procedure are i n the results section. CBC W/PLT COUNT & AUTO Routine 10/04/2019 11:57 R esults for this DIFFERENTIAL PM CDT procedure are i n the results section. POCT-GLUCOSE METER Routine 10/04/2019 11:57 Resul ts for this PM CDT procedure are i n the results section. HEMOGLOBIN A1C Routine 10/04/2019 11:57 Results f or this PM CDT procedure are i n the results section. LIPID PANEL Routine 10/04/2019 11:57 Results for this PM CDT procedure are i n the results section. CBC W/PLT COUNT & AUTO Routine 10/04/2019 11:57 R esults for this DIFFERENTIAL PM CDT procedure are i n the results section. MAGNESIUM Routine 10/04/2019 11:57 Results for this PM CDT procedure are i n the results section. COMPREHENSIVE Routine 10/04/2019 11:57 Results fo r this METABOLIC PANEL PM CDT procedure ar e in the results section. GLUCOSE STAT 10/04/2019 11:57 Results for this PM CDT procedure are i n the results section. POCT-GLUCOSE METER Routine 10/04/2019 10:58 Resul ts for this PM CDT procedure are i n the results section. POCT-GLUCOSE METER Routine 10/04/2019 9:50 Resul ts for this PM CDT procedure are i n the results section. SARS-COV2/RT-PCR ([facility] Routine 10/01/2019 4:45 R esults for this & REF LABS) PM CDT procedure are i n the results section. after 10/24/2018 Results POC-Glucose meter (10/23/2019 11:14 AM CDT)Only the most recent of103 results within the time period is included. POC-Glucose Meter 111 (H)Comment: : TESTED 70 - 110 mg/dL [facility] BCM AT [address] [address]: Supervisor Industrial Garment/Balancer Scale ID = [id number] for Sarai Corley Specimen Blood Performing Organization Address City/State/Zipcode Phone Number [facility] [address] [place] [address] CENTER CBC with platelet count + automated diff (10/23/2019 5:30 AM CDT)Only the most recent of16 resultswithin the time period is included. WBC 13.8 (H) 4.0 - 10.0 K/L [facility] RBC 3.28 (L) 4.20 - 5.80 M/L [facility] Hemoglobin 8.7 (L) 13.0 - 16.8 GM/DL [facility] Hematocrit 28.3 (L) 36.0 - 50.0 % [facility] MCV 86.3 82.0 - 99.0 fL [facility] MCH 26.5 (L) 27.0 - 33.0 pg [facility] MCHC 30.7 (L) 32.0 - 36.0 GM/DL [facility] RDW 15.3 (H) 12.0 - 15.0 % [facility] Platelets 403 150 - 430 K/CU MM [facility] MPV 9.4 6.0 - 11.5 fL [facility] nRBC 0 0 - 0 /100 WBC [facility] % Neutros 65 % [facility] % Lymphs 21 % [facility] % Monos 7 % [facility] % Eos 5 % [facility] % Baso 1 % [facility] # Neutros 9.00 (H) 1.80 - 8.00 K/L [facility] # Lymphs 2.91 1.48 - 4.50 K/L [facility] # Monos 1.03 0.00 - 1.30 K/L [facility] # Eos 0.70 (H) 0.00 - 0.50 K/L [facility] # Baso 0.10 0.00 - 0.20 K/L [facility] Immature Granulocytes-Relative 1 (H) 0 - 0 % S [facility] Specimen Blood Performing Organization Address City/State/Zipcode Phone Number [facility] [address] [place], [place] [phone] Comprehensive metabolic panel (10/23/2019 5:30 AM CDT)Only the most recent of13 resultswithin the time period is included. Protein, Total 8.1 6.0 - 8.5 gm/dL [facility] Albumin 3.7 3.5 - 5.0 g/dL [facility] Alkaline Phosphatase 113 30 - 115 U/L [facility] Total Bilirubin 0.5 0.1 - 1.2 mg/dL [facility] Sodium 142 135 - 148 meq/L [facility] Potassium 4.7 3.6 - 5.5 meq/L [facility] Chloride 105 98 - 106 meq/L [facility] CO2 24 20 - 29 meq/L [facility] BUN 37 (H) 10 - 26 mg/dL [facility] Creatinine 3.61 (H) 0.50 - 1.20 mg/dL [facility] Glucose 121 (H) 70 - 110 mg/dL [facility] Calcium 9.5 8.5 - 10.5 mg/dL [facility] AST 46 (H) 5 - 40 U/L [facility] ALT 25 5 - 50 U/L [facility] EGFR 21Comment: ESTIMATED GFR mL/min/1.73 sq m [facility] IS NOT ACCURATE CREATININE CLEARANCE IN PREDICTING GLOMERULAR FILTRATION RATE. ESTIMATED GFR IS NOT APPLICABLE FOR DIALYSIS PATIENTS. Specimen Blood Narrative Performed At Supervisor Industrial Garment ID - [id number] [employer] [facility] Performing Organization Address [facility]/Zipcode Phone Number [facility] [address] [place], [place] [address] XR chest 1 view portable / bedside (10/21/2019 10:17 AM CDT)Only the most recent of4 resultswithin the time period is included. Specimen Narrative Performed At FINAL REPORT [facility] CLINICAL HISTORY: SOB TECHNIQUE: 1 view of the chest. COMPARISON: 10/14/2019 IMPRESSION: The right central line is unchanged. Jennifer vation of the right hemidiaphragm is again seen with right b asilar atelectasis and blunting of the right costophrenic angle . The left lung remains relatively well-aerated. The cardiomedia stinal silhouette is magnified by technique. Signed: Suhail Andrew MD Report Verified Date/Time:10/21/2019 10:31:25 Reading Location: [facility] Reading Room Procedure Note Interface, External Ris In - 10/21/2019 10:33 AM CDT FINAL REPORT CLINICAL HISTORY: SOB TECHNIQUE: 1 view of the chest. COMPARISON: 10/14/2019 IMPRESSION: The right central line is unchanged. Jennifer vation of the right hemidiaphragm is again seen with right b asilar atelectasis and blunting of the right costophrenic angle . The left lung remains relatively well-aerated. The cardiomedia stinal silhouette is magnified by technique. Signed: Suhail Andrew MD Report Verified Date/Time: 10/21/2019 1 0:31:25 Reading Location: [facility] Reading Room Performing Organization Address City/State/[facility] Phone Number [facility] TRANSFUSION SERVICE REPORT - SCAN (10/17/2019 6:06 PM CDT)Only the most recent of2 resultswithin the time period is included. Narrative Performed At This result has an attachment that is no t available. Prepare Leuko-Red RBC (10/16/2019 11:54 PM CDT) CROSSMATCH COMPATIBLE SAFETRACE TX Unit ABO O Pos SAFETRACE TX UNIT NUMBER [id number] SAFETRACE TX Status TX_TIMEINCHART SAFETRACE TX Blood Bank Product RED BLOOD CELLS SAFETRACE TX PRODUCT CODE [id number] SAFETRACE TX CROSSMATCH COMPATIBLE SAFETRACE TX Unit ABO O Pos SAFETRACE TX UNIT NUMBER [id number] SAFETRACE TX Status TX_TIMEINCHART SAFETRACE TX Blood Bank Product RED BLOOD CELLS SAFETRACE TX PRODUCT CODE [id number] SAFETRACE TX Specimen Other Performing Organization Address City/State/[facility] Hospitalcode Phone Number SAFETRACE TX IR Tunneled Catheter Insertion (10/16/2019 4:41 PM CDT) Specimen Narrative Performed At FINAL REPORT [facility] Procedure: Tunneled dialysis catheter pl acement. History: Need for hemodialysis. Electric Needle Specialist: Haim Garcia MD. Fur Puller: Oc Grigsby. Modality: Sonography and fluoroscopy. DOSE REDUCTION: The examination was perf ormed according to departmental dose-optimization program. Fluoro time: 1 minutes and 3 seconds Radiation dose for this procedure was 13 mGy air Kerma. Number of images: 5 Sedation: Versed 2.5 mg and fentanyl 75 mcg was given intravenously for conscious sedation.Vital signs w ere monitored throughout the procedure by a dedicated RN under direct supervision of Dr. Garcia, and remained stable. Medicines: Ancef 1 g IV. Anesthesia: Lidocaine local infiltration . Physician intraprocedure sedation time was approximate ly 30 minutes. Estimated blood loss:< 5 cc. Technique: Informed written consent was obtained. D iscussion of risks, benefits, and alternatives were made with the lisa ent. The patient expressed understanding and agreed to proceed. A universal timeout was performed prior to starting the procedur e. The procedure room personnel used personal protective equip ment. The operators used sterile gowns and gloves additionally. A preliminary ultrasonogram was performe d of the neck that revealed a patent and compressible rightinterna l jugular vein. Pertinent ultrasound images were stored in the PAC S for documentation. A sterile prep and drape of the right ne ck and upper chest was performed using standard technique. Using aseptic precautions, real-time ult rasound guidance, the internal jugular vein was accessed after local anesthetic infiltration and dermatotomy with a micr opuncture needle. A 018 guidewire was advanced into the central venous system under fluoroscopic guidance.Over the wire a micropuncture sheath was placed. Through the micropuncture sheath , a 035 wire was advanced into the venous system under fluoroscopi c guidance. Over the wire a peel-away sheath was placed. After local anesthesia, an incision was created in the subclavicular exit site location and a cuffed tunneled dialysis catheter of an appropriate length was tunneled from the exit site to the venotomy site using a tunneling device. The anjum ter was advanced into the venous system through the peel-away guzman th which was removed. The catheter aspirated and flushed well and was terminally packed with heparin 1000 units per cc. The catheter was secured to skin using n onabsorbable suture and a CHG dressing applied. The venotomy site was closed using Flaxton anderson. An aseptic dressing was applied using the protocol for Dermabond . The patient was transferred [facility] and was discharged from the department in stable condition. Complications: None immediate. Device: 15.5 Lao x 19 cm cuff to tip Duraflow 2 catheter. Findings: Patent and compressible right internal jugular vein. Final image shows the catheter to be in good p osition with the catheter tip in the right atrium, an excellent positi on for use. There is no complication. Impression: Successful ultrasound and fluoroscopic g uided right internal jugular vein route cuffed tunneled hemodialysis catheter placement as described above. At the end of the procedure, the James catheter was removed and an aseptic dressing applied. The James ac cess site was in the high neck and could not be converted to a TDC . Thank you for the opportunity to assist in the care of your patient. Signed: Haim Garcia MD Report Verified Date/Time:10/22/2019 10:46:01 Reading Location: [place] [id number] Angio Body Reading Room Procedure Note Interface, External Ris In - 10/22/2019 10:48 AM CDT FINAL REPORT Procedure: Tunneled dialysis catheter pl acement. History: Need for hemodialysis. Electric Needle Specialist: Haim Garcia MD. Fur Puller: None, M.D. Modality: Sonography and fluoroscopy. DOSE REDUCTION: The examination was perf ormed according to departmental dose-optimization program. Fluoro time: 1 minutes and 3 seconds Radiation dose for this procedure was 13 mGy air Kerma. Number of images: 5 Sedation: Versed 2.5 mg and fentanyl 75 mcg was given intravenously for conscious sedation. Vital signs wer e monitored throughout the procedure by a dedicated RN under direct supervision of Dr. Garcia, and remained stable. Medicines: Ancef 1 g IV. Anesthesia: Lidocaine local infiltration . Physician intraprocedure sedation time w as approximately 30 minutes. Estimated blood loss: < 5 cc. Technique: Informed written consent was obtained. D iscussion of risks, benefits, and alternatives were made with the lisa ent. The patient expressed understanding and agreed to proceed. A universal timeout was performed prior to starting the procedur e. The procedure room personnel used personal protective equip ment. The operators used sterile gowns and gloves additionally. A preliminary ultrasonogram was performe d of the neck that revealed a patent and compressible right internal jugular vein. Pertinent ultrasound images were stored in the PAC S for documentation. A sterile prep and drape of the right ne ck and upper chest was performed using standard technique. Using aseptic precautions, real-time ult rasound guidance, the internal jugular vein was accessed after local anesthetic infiltration and dermatotomy with a micr opuncture needle. A 018 guidewire was advanced into the central venous system under fluoroscopic guidance. Over the wire a micropuncture sheath was placed. Through the micropuncture sheath , a 035 wire was advanced into the venous system under fluoroscopi c guidance. Over the wire a peel-away sheath was placed. After local anesthesia, an incision was created in the subclavicular exit site location and a cuffed tunneled dialysis catheter of an appropriate length was tunneled from the exit site to the venotomy site using a tunneling device. The anjum ter was advanced into the venous system through the peel-away guzman th which was removed. The catheter aspirated and flushed well and was terminally packed with heparin 1000 units per cc. The catheter was secured to skin using n onabsorbable suture and a CHG dressing applied. The venotomy site was closed using Flaxton anderson. An aseptic dressing was applied using the protocol for Dermabond . The patient was transferred to the [facility] and was discharged from the department in stable condition. Complications: None immediate. Device: 15.5 Lao x 19 cm cuff to tip Duraflow 2 catheter. Findings: Patent and compressible right internal jugular vein. Final image shows the catheter to be in good p osition with the catheter tip in the right atrium, an excellent positi on for use. There is no complication. Impression: Successful ultrasound and fluoroscopic g uided right internal jugular vein route cuffed tunneled hemodialysis catheter placement as described above. At the end of the procedure, the James catheter was removed and an aseptic dressing applied. The James ac cess site was in the high neck and could not be converted to a TDC . Thank you for the opportunity to assist in the care of your patient. Signed: Haim Garcia MD Report Verified Date/Time: 10/22/2019 1 0:46:01 Reading Location: [facility] B1 P048 Angio Body Reading Room Performing Organization Address City/State/Zipcode Phone Number GE RIS Lipase (10/16/2019 5:10 AM CDT)Only the most recent of6 resultswithin the time period is included. Lipase 87 (H) 6 - 51 U/L [facility] Specimen Blood Narrative Performed At Supervisor Industrial Garment ID - [id number] [facility] Performing Organization Address City/[facility]/Zipcode Phone Number [facility] [address] [place], [place] [address] Transfuse Leuko-Red RBC (10/15/2019 5:33 PM CDT)Only the most recent of3 resultswithin the time period is included.ABORH, manual (10/15/2019 9:34 AM CDT) ABO Grouping O [facility] Rh Factor POSComment: 10/15/2019 @ 0931 [facility] PINK TOP [id number] Specimen Blood Performing Organization Address [facility] Phone Number [address] [address] [facility] Type and screen, automated (10/15/2019 8:17 AM CDT) ABO/RH AUTOMATED (BEAKER) O POSITIVE [facility] Ab Scrn NEGATIVE [facility] Specimen Blood Performing Organization Address City/[facility]/Zipcode Phone Number [facility] [address] [place] [address] [phone] [facility] Amylase (10/15/2019 6:14 AM CDT)Only the most recent of5 resultswithin the time period is included. Amylase 79 30 - 110 U/L [facility] Specimen Blood Narrative Performed At Supervisor Industrial Garment ID - ZACH [facility] Performing Organization Address City/State/Zipcode Phone Number [facility] [address] [place], [place] [address] Basic Metabolic Panel (10/15/2019 6:14 AM CDT)Only the most recent of9 results within the time period is included. Sodium 138 135 - 148 meq/L [facility] Potassium 3.9 3.6 - 5.5 meq/L [facility] Chloride 99 98 - 106 meq/L [facility] CO2 25 20 - 29 meq/L [facility] BUN 20 10 - 26 mg/dL [facility] Creatinine 4.87 (H) 0.50 - 1.20 mg/dL [facility] Glucose 137 (H) 70 - 110 mg/dL [facility] Calcium 7.9 (L) 8.5 - 10.5 mg/dL [facility] EGFR 15Comment: ESTIMATED GFR IS NOT mL/min/1.73 s q m [facility] ACCURATE CREATININE CLEARANCE IN PREDICTING GLOMERULAR FILTRATION RATE. ESTIMATED GFR IS NOT APPLICABLE FOR DIALYSIS PATIENTS. Specimen Blood Narrative Performed At Supervisor Industrial Garment ID - [id number] [facility] Performing Organization Address City/[facility] Hospitalcoar Phone Number [facility] [place], [place] [address] Procalcitonin (10/13/2019 5:14 AM CDT) Procalcitonin 0.57 (H) <0.05 ng/mL [facility] Specimen Blood Narrative Performed At SEPSIS RISK (ng/mL) [facility] Low:0.05-0.50 Intermediate: 0.51-2.00 High: >=2.01 Performing Organization Address [facility] Hospital[facility]ar Phone Number [facility] [address] [place] [phone] CBC (Hemogram only) (10/13/2019 5:14 AM CDT) WBC 30.1 (H) 4.0 - 10.0 K/L [facility] RBC 2.82 (L) 4.20 - 5.80 M/L [facility] Hemoglobin 7.5 (L) 13.0 - 16.8 GM/DL [facility] Hematocrit 23.6 (L) 36.0 - 50.0 % [facility] MCV 83.7 82.0 - 99.0 fL [facility] MCH 26.6 (L) 27.0 - 33.0 pg [facility] MCHC 31.8 (L) 32.0 - 36.0 GM/DL [facility] RDW 14.5 12.0 - 15.0 % [facility] Platelets 330 150 - 430 K/CU MM [facility] MPV 10.3 6.0 - 11.5 fL [facility] nRBC 0 0 - 0 /100 WBC [facility] Specimen Blood Performing Organization Address [facility]code Phone Number [facility] [address] [place] [phone] Triglycerides (10/13/2019 5:14 AM CDT)Only the most recent of2 resultswithin the time period is included. Triglycerides 413 mg/dL [facility] Specimen Blood Narrative Performed At TRIGLYCERIDE REFERENCE RANGE [facility] Low Risk<150 Borderline Risk 150-199 High [id number] Very High Risk >=500 Supervisor Industrial Garment ID - RESORIAN Supervisor Industrial Garment ID - RESORIAN Supervisor Industrial Garment ID - RESORIAN Supervisor Industrial Garment ID - RESORIAN Performing Organization Address [facility] Phone Number [place] [phone] Magnesium (10/12/2019 4:42 AM CDT)Only the most recent of6 resultswithin the time period is included. Magnesium 1.7 1.5 - 3.0 mg/dL [facility] Specimen Blood Narrative Performed At Supervisor Industrial Garment ID - [id number] [facility] Performing Organization Address [facility]code Phone Number [address] [phone] Blood Culture - Rule Out Line Infection (Central Line) (10/11/2019 6:44 PM CDT) Only the most recent of3 resultswithin the time period is included. Result No growth in 5 days [facility] Specimen Blood Performing Organization Address City/[facility]/Zipcode Phone Number [facility] [address] [place] [address] Manual Differential (10/11/2019 5:32 AM CDT)Only the most recent of7 results within the time period is included. % Neutros (manual) 75 % [facility] % Lymphs (manual) 14 % [facility] % Monos (manual) 9 % [facility] % Metamyelo (manual) 1 (H) 0 - 0 % [facility] % Bands (manual) 1 0 - 10 % [facility] # Neutros (manual) 23.70 (H) 1.80 - 8.00 K/L [facility] # Lymphs (manual) 4.42 1.48 - 4.50 K/L [facility] # Monos (manual) 2.84 (H) 0.00 - 1.30 K/L [facility] # Metamyelo (manual) 0.32 (H) 0.00 - 0.00 K/L [facility] # Bands (manual) 0.3 0.0 - 0.8 K/L [facility] Total Counted 100 [facility] Bands plus Segmented Neutrophils 24.02 [facility] Toxic Granulation Present [facility] Large Platelet Present [facility] Giant Platelet Present [facility] Anisocytosis 1+ few [facility] Hypochromia 2+ moderate [facility] Specimen Blood Performing Organization Address City/State/Zipcode Phone Number [facility] [address] [place] [phone] Hepatitis B core antibody, total (10/10/2019 2:35 PM CDT) Hep B Core Total Ab Nonreactive Nonreactive [facility] Specimen Blood Narrative Performed At Supervisor Industrial Garment ID - DB [facility] Performing Organization Address City/State/Zipcode Phone Number [facility] [address] [place], [place] [id number] abdomen/pelvis with IV contrast (10/09/2019 2:18 PM CDT) Specimen Narrative Performed At FINAL REPORT [facility] HISTORY : LEUKOCYTOSIS TECHNIQUE :Multiple axial images of the chest, abdomen and pelvis were performed with 5 mm slice thickness with the administration of IV contrast from the lung apices to the pubic symphysis. This exam was performed according to [facility] dose optimization program which includes automated exposure contro l, adjustment of the mA and/or kV according to patient size and/ or use of iterative reconstructive technique. COMPARISON : None FINDINGS: Please note the examination is limited s econdary to patient's body habitus extending out of the field of vi ew. The thyroid and remaining visualized str uctures within the base the neck demonstrate no significant abnormal ities. Right IJ dialysis catheter identified wi th distal tip terminating within the SVC. The thoracic aorta is no rmal course and caliber. The main pulmonary artery is normal in calib er. The heart is not enlarged. No abnormal pericardial fluid is present. There is no abnormal axillary, mediastinal, or hilar lymph node enlargement. The trachea and proximal airways are pat ent. There is mild elevation of the right hemidiaphragm. Scattered ar eas of subsegmental atelectasis noted within the right lower lobe. 5-6 mm groundglass nodule identified within the right upper lobe (axial image 27). Given small size, no follow-up examination is warranted. The lungs otherwise demonstrate no evidence for co nsolidation, pneumothorax, mass, suspicious nodule, or pleural effu paz. The liver is mildly enlarged and appears diffusely decreased in attenuation suggestive of fatty infiltra tion. No focal hepatic abnormalities identified. The gallbladde r is unremarkable. There is no evidence for radiopaque stones or pino iary ductal dilatation. The stomach, spleen, and bilateral adrenal g lands are unremarkable. The pancreas appears prominent with sign ificant adjacent fat stranding identified within the upper ab domen concerning for acute pancreatitis.. No definite areas of abno rmal enhancement are identified to suggest necrosis. No organ ized/drainable peripancreatic fluid collection is identified. Small am ount of free fluid noted within the abdomen, most prominent along the right pericolic gutter, likely reactive. The kidneys are normal in size and locat ion and enhance symmetrically. There is no evidence for nephrolithiasis or hydronephrosis. No ureteral dilatation o r stone is appreciated. The urinary bladder and prostate demonstrate no significant abnormalities. The abdominal aorta is normal course and caliber. The IVC is grossly unremarkable. Please note evaluation of bowel is limit ed without the use of enteric contrast material. There is mild wall th ickening of the duodenum which may be reactive. The remaining vis ualized loops of small and large bowel demonstrate no evidence of o bstruction or inflammation. There is no intraperitoneal free air. No abnormally enlarged lymph nodes are identified within abdomen or p kalyan. The osseous structures demonstrate no ev idence for acute fracture or destructive process. The extraperitoneal soft tissues are unremarkable. Impression: Limited examination secondary to patient 's body habitus demonstrates edematous appearing pancreas with adjace nt fat stranding concerning for acute pancreatitis. No definite evid ence of abnormal enhancement to suggest necrosis. No organized/draina ble peripancreatic fluid collection identified. Small amount of free fluid noted within the abdomen and mild wall thickening noted of the duodenum, likely reactive. CT findings suggestive of hepatic steato sis. Signed: Charly Fung MD Report Verified Date/Time:10/09/2019 14:52:27 Reading Location: [facility] Procedure Note Interface, External Ris In - 10/09/2019 2:54 PM CDT FINAL REPORT HISTORY : LEUKOCYTOSIS TECHNIQUE : Multiple axial images of th e chest, abdomen and pelvis were performed with 5 mm slice thickness with the administration of IV contrast from the lung apices to the pubic symphysis. This exam was performed according to our [facility] dose optimization program which includes automated exposure contro l, adjustment of the mA and/or kV according to patient size and/ or use of iterative reconstructive technique. COMPARISON : None FINDINGS: Please note the examination is limited s econdary to patient's body habitus extending out of the field of vi ew. The thyroid and remaining visualized str uctures within the base the neck demonstrate no significant abnormal ities. Right IJ dialysis catheter identified wi th distal tip terminating within the SVC. The thoracic aorta is no rmal course and caliber. The main pulmonary artery is normal in calib er. The heart is not enlarged. No abnormal pericardial fluid is present. There is no abnormal axillary, mediastinal, or hilar lymph node enlargement. The trachea and proximal airways are pat ent. There is mild elevation of the right hemidiaphragm. Scattered ar eas of subsegmental atelectasis noted within the right lower lobe. 5-6 mm groundglass nodule identified within the right upper lobe (axial image 27). Given small size, no follow-up examination is warranted. The lungs otherwise demonstrate no evidence for co nsolidation, pneumothorax, mass, suspicious nodule, or pleural effu paz. The liver is mildly enlarged and appears diffusely decreased in attenuation suggestive of fatty infiltra tion. No focal hepatic abnormalities identified. The gallbladde r is unremarkable. There is no evidence for radiopaque stones or pino iary ductal dilatation. The stomach, spleen, and bilateral adrenal g lands are unremarkable. The pancreas appears prominent with sign ificant adjacent fat stranding identified within the upper ab domen concerning for acute pancreatitis.. No definite areas of abno rmal enhancement are identified to suggest necrosis. No organ ized/drainable peripancreatic fluid collection is identified. Small am ount of free fluid noted within the abdomen, most prominent along the right pericolic gutter, likely reactive. The kidneys are normal in size and locat ion and enhance symmetrically. There is no evidence for nephrolithiasis or hydronephrosis. No ureteral dilatation o r stone is appreciated. The urinary bladder and prostate demonstrate no significant abnormalities. The abdominal aorta is normal course and caliber. The IVC is grossly unremarkable. Please note evaluation of bowel is limit ed without the use of enteric contrast material. There is mild wall th ickening of the duodenum which may be reactive. The remaining vis ualized loops of small and large bowel demonstrate no evidence of o bstruction or inflammation. There is no intraperitoneal free air. No abnormally enlarged lymph nodes are identified within abdomen or p kalyan. The osseous structures demonstrate no ev idence for acute fracture or destructive process. The extraperitoneal soft tissues are unremarkable. Impression: Limited examination secondary to patient 's body habitus demonstrates edematous appearing pancreas with adjace nt fat stranding concerning for acute pancreatitis. No definite evid ence of abnormal enhancement to suggest necrosis. No organized/draina ble peripancreatic fluid collection identified. Small amount of free fluid noted within the abdomen and mild wall thickening noted of the duodenum, likely reactive. CT findings suggestive of hepatic steato sis. Signed: Charly Fung MD Report Verified Date/Time: 10/09/2019 1 4:52:27 Reading Location: [facility] Performing Organization Address City/State/Zipcode Phone Number [email or web address] CT chest with IV contrast (10/09/2019 2:18 PM CDT) Specimen Narrative Performed At FINAL REPORT [email or web address] HISTORY : LEUKOCYTOSIS TECHNIQUE :Multiple axial images of the chest, abdomen and pelvis were performed with 5 mm slice thickness with the administration of IV contrast from the lung apices to the pubic symphysis. This exam was performed according [facility] dose optimization program which includes automated exposure contro l, adjustment of the mA and/or kV according to patient size and/ or use of iterative reconstructive technique. COMPARISON : None FINDINGS: Please note the examination is limited s econdary to patient's body habitus extending out of the field of vi ew. The thyroid and remaining visualized str uctures within the base the neck demonstrate no significant abnormal ities. Right IJ dialysis catheter identified wi th distal tip terminating within the SVC. The thoracic aorta is no rmal course and caliber. The main pulmonary artery is normal in calib er. The heart is not enlarged. No abnormal pericardial fluid is present. There is no abnormal axillary, mediastinal, or hilar lymph node enlargement. The trachea and proximal airways are pat ent. There is mild elevation of the right hemidiaphragm. Scattered ar eas of subsegmental atelectasis noted within the right lower lobe. 5-6 mm groundglass nodule identified within the right upper lobe (axial image 27). Given small size, no follow-up examination is warranted. The lungs otherwise demonstrate no evidence for co nsolidation, pneumothorax, mass, suspicious nodule, or pleural effu paz. The liver is mildly enlarged and appears diffusely decreased in attenuation suggestive of fatty infiltra tion. No focal hepatic abnormalities identified. The gallbladde r is unremarkable. There is no evidence for radiopaque stones or pino iary ductal dilatation. The stomach, spleen, and bilateral adrenal g lands are unremarkable. The pancreas appears prominent with sign ificant adjacent fat stranding identified within the upper ab domen concerning for acute pancreatitis.. No definite areas of abno rmal enhancement are identified to suggest necrosis. No organ ized/drainable peripancreatic fluid collection is identified. Small am ount of free fluid noted within the abdomen, most prominent along the right pericolic gutter, likely reactive. The kidneys are normal in size and locat ion and enhance symmetrically. There is no evidence for nephrolithiasis or hydronephrosis. No ureteral dilatation o r stone is appreciated. The urinary bladder and prostate demonstrate no significant abnormalities. The abdominal aorta is normal course and caliber. The IVC is grossly unremarkable. Please note evaluation of bowel is limit ed without the use of enteric contrast material. There is mild wall th ickening of the duodenum which may be reactive. The remaining vis ualized loops of small and large bowel demonstrate no evidence of o bstruction or inflammation. There is no intraperitoneal free air. No abnormally enlarged lymph nodes are identified within abdomen or p kalyan. The osseous structures demonstrate no ev idence for acute fracture or destructive process. The extraperitoneal soft tissues are unremarkable. Impression: Limited examination secondary to patient 's body habitus demonstrates edematous appearing pancreas with adjace nt fat stranding concerning for acute pancreatitis. No definite evid ence of abnormal enhancement to suggest necrosis. No organized/draina ble peripancreatic fluid collection identified. Small amount of free fluid noted within the abdomen and mild wall thickening noted of the duodenum, likely reactive. CT findings suggestive of hepatic steato sis. Signed: Charly Fung MD Report Verified Date/Time:10/09/2019 14:52:27 Reading Location: [facility] Radiology [facility] Procedure Note Interface, External Ris In - 10/09/2019 2:54 PM CDT FINAL REPORT HISTORY : LEUKOCYTOSIS TECHNIQUE : Multiple axial images of th e chest, abdomen and pelvis were performed with 5 mm slice thickness with the administration of IV contrast from the lung apices to the pubic symphysis. This exam was performed according to [facility] dose optimization program which includes automated exposure contro l, adjustment of the mA and/or kV according to patient size and/ or use of iterative reconstructive technique. COMPARISON : None FINDINGS: Please note the examination is limited s econdary to patient's body habitus extending out of the field of vi ew. The thyroid and remaining visualized str uctures within the base the neck demonstrate no significant abnormal ities. Right IJ dialysis catheter identified wi th distal tip terminating within the SVC. The thoracic aorta is no rmal course and caliber. The main pulmonary artery is normal in calib er. The heart is not enlarged. No abnormal pericardial fluid is present. There is no abnormal axillary, mediastinal, or hilar lymph node enlargement. The trachea and proximal airways are pat ent. There is mild elevation of the right hemidiaphragm. Scattered ar eas of subsegmental atelectasis noted within the right lower lobe. 5-6 mm groundglass nodule identified within the right upper lobe (axial image 27). Given small size, no follow-up examination is warranted. The lungs otherwise demonstrate no evidence for co nsolidation, pneumothorax, mass, suspicious nodule, or pleural effu paz. The liver is mildly enlarged and appears diffusely decreased in attenuation suggestive of fatty infiltra tion. No focal hepatic abnormalities identified. The gallbladde r is unremarkable. There is no evidence for radiopaque stones or pino iary ductal dilatation. The stomach, spleen, and bilateral adrenal g lands are unremarkable. The pancreas appears prominent with sign ificant adjacent fat stranding identified within the upper ab domen concerning for acute pancreatitis.. No definite areas of abno rmal enhancement are identified to suggest necrosis. No organ ized/drainable peripancreatic fluid collection is identified. Small am ount of free fluid noted within the abdomen, most prominent along the right pericolic gutter, likely reactive. The kidneys are normal in size and locat ion and enhance symmetrically. There is no evidence for nephrolithiasis or hydronephrosis. No ureteral dilatation o r stone is appreciated. The urinary bladder and prostate demonstrate no significant abnormalities. The abdominal aorta is normal course and caliber. The IVC is grossly unremarkable. Please note evaluation of bowel is limit ed without the use of enteric contrast material. There is mild wall th ickening of the duodenum which may be reactive. The remaining vis ualized loops of small and large bowel demonstrate no evidence of o bstruction or inflammation. There is no intraperitoneal free air. No abnormally enlarged lymph nodes are identified within abdomen or p kalyan. The osseous structures demonstrate no ev idence for acute fracture or destructive process. The extraperitoneal soft tissues are unremarkable. Impression: Limited examination secondary to patient 's body habitus demonstrates edematous appearing pancreas with adjace nt fat stranding concerning for acute pancreatitis. No definite evid ence of abnormal enhancement to suggest necrosis. No organized/draina ble peripancreatic fluid collection identified. Small amount of free fluid noted within the abdomen and mild wall thickening noted of the duodenum, likely reactive. CT findings suggestive of hepatic steato sis. Signed: Charly Fung MD Report Verified Date/Time: 10/09/2019 1 4:52:27 Reading Location: [facility] Performing Organization Address [facility] Phone Number [facility] C-Reactive Protein (10/08/2019 4:51 PM CDT) CRP 20.64 (H) 0.00 - 0.50 mg/dL [facility] Specimen Blood Narrative Performed At [employer] ID - JBERN [facility] Performing Organization Address [facility] Phone Number [facility] [address] [place], [place] [phone] Clostridium difficile [facility] Toxin (10/08/2019 4:36 PM CDT) C. Difficle Toxin Negative Negative [facility] C. Difficile GD Antigen NegativeComment: No Negative [facility] indication of Clostridium difficile infection and no colonization. Discontinue enteric isolation and therapy. Specimen Stool Narrative Performed At Testing performed by [employer] Rapid Cassette Assay.Fo r GDH, [facility] published sensitivity of the assay is 98.7% compared t o cytotoxicity testing.For Toxin AB, published sensi tivity is 87.8% and specificity 99.4% compared to cytotoxicity testing. Verification of kit performance was done by the [facility] prior to clinical use. Performing Organization Address [facility] Phone Number [facility] [address] [place], [place] [phone] Urinalysis Microscopic Only (10/08/2019 4:36 PM CDT) RBC, UA 5-10 /HPF [facility] WBC, UA 5-10 /HPF [facility] Bacteria, UA Rare [facility] SQUAMOUS EPITHELIAL 5-10 /HPF [facility] Amorphous Crystals Moderate [facility] Yeast Few [facility] Specimen Urine Performing Organization Address [facility] Phone Number [facility] [address] [place] [phone] Urinalysis with Microscopic If Indicated (10/08/2019 4:36 PM CDT) Color, UA Yellow [facility] Clarity, UA Clear [facility] Specific [place], UA 1.010 1.001 - 1.035 [facility] pH, UA 5.5 5.0 - 8.0 [facility] Protein, UA 30 mg/dL (A) Negative [facility] Glucose, UA Negative Negative [facility] Ketones, UA Negative Negative [facility] Bilirubin, UA Negative Negative [facility] Blood, UA Small (A) Negative [facility] Nitrite, UA Negative Negative [facility] Leukocytes, UA Negative Negative [facility] Urobilinogen, UA 0.2 0.2 - 1.0 mg/dL [facility] Specimen Source [facility] Specimen Urine Performing Organization Address [facility] Phone Number [facility] [address] [place] [phone] Ketone, blood (10/06/2019 9:29 AM CDT) Ketones, Blood 0.1 <0.4 mmol/L [facility] Specimen Blood Performing Organization Address [facility] Phone Number [facility] [address] [place] [phone] Phosphorus (10/06/2019 4:25 AM CDT) Phosphorus 4.5 2.5 - 4.5 mg/dL [facility] Specimen Blood Narrative Performed At [employer] CHUY - SVETLANA [facility] Performing Organization Address City/[facility] Phone Number [facility] [address] [place] [phone] IR non-tunneled dialysis catheter insertion (10/05/2019 2:55 PM CDT) Specimen Narrative Performed At FINAL REPORT [facility] Non-tunneled Dialysis Catheter Insertion History: Renal failure, need for central venous access. Modality: Fluoroscopy and sonography. Sedation: None. Electric Needle Specialist:Charly Fung MD. Fur Puller:None. Approach: Right internal jugular vein Estimated blood loss:< 5 cc. Specimen: None. Fluoroscopy Time: 0.3 min. Reference Air Kerma (Ka, r): 4.0 mGy. Technique: Informed written consent was obtained. D iscussion of risks, benefits, and alternatives were made with the lisa ent. The patient expressed understanding and agreed to proceed. A universal timeout was performed prior to starting the procedur e.All elements maximal sterile barrier technique was utilized f or this procedure, including utilization of sterile scrub solution fo r skin prep, a large sterile sheet to cover the areas of the patient that were not prepped, and hand hygiene, mask, head covering, and s terile gown for performing radiologist and scrub technologist. Initial ultrasound images demonstrate pa tent and compressible right internal jugular, which was punctured un paul direct real-time ultrasound guidance with a micropuncture needle.An ultrasound image was saved to PACS. A microwire and sheat h were placed. A 0.035 inch wire was placed through the sheath into the IVC. The tract was serially dilated. The 15 cm 13 La[address] Tr ialysis catheter was placed over the wire with its distal tip termin ating at the cavoatrial junction.The ports were flushed and aspirated easily following placement.The lumens were locked wit h heparin. The catheter was sutured to the skin to secure its placem ent.Vital signs were monitored throughout the procedure by a nurse, and remained stable. The patient tolerated the procedure well and left the department in the same condition. Results:Spot radiograph of the chest demonstrates the new non-tunneled dialysis catheter to lie in the expected position with its tip overlying the cavoatrial junction. Impression: Successful, uncomplicated placement of a right internal jugular non-tunneled dialysis (Trialysis) cathet er using sonographic and fluoroscopic guidance.The catheter is ready for im mediate use. Signed: Charly Fung MD Report Verified Date/Time:10/05/2019 16:27:11 Reading Location: [place] [id number] Angio Body Reading Room Procedure Note Interface, External Ris In - 10/05/2019 4:29 PM CDT FINAL REPORT Non-tunneled Dialysis Catheter Insertion History: Renal failure, need for central venous access. Modality: Fluoroscopy and sonography. Sedation: None. Electric Needle Specialist: Charly Fung MD. Fur Puller: None. Approach: Right internal jugular vein Estimated blood loss: < 5 cc. Specimen: None. Fluoroscopy Time: 0.3 min. Reference Air Kerma (Ka, r): 4.0 mGy. Technique: Informed written consent was obtained. D iscussion of risks, benefits, and alternatives were made with the lisa ent. The patient expressed understanding and agreed to proceed. A universal timeout was performed prior to starting the procedur e. All elements maximal sterile barrier technique was utilized f or this procedure, including utilization of sterile scrub solution fo r skin prep, a large sterile sheet to cover the areas of the patient that were not prepped, and hand hygiene, mask, head covering, and s terile gown for performing radiologist and scrub technologist. Initial ultrasound images demonstrate pa tent and compressible right internal jugular, which was punctured un paul direct real-time ultrasound guidance with a micropuncture needle. An ultrasound image was saved to PACS. A microwire and sheat h were placed. A 0.035 inch wire was placed through the sheath into the IVC. The tract was serially dilated. The 15 cm 13 Lao Tr ialysis catheter was placed over the wire with its distal tip termin ating at the cavoatrial junction. The ports were flushed and as pirated easily following placement. The lumens were locked with heparin. The catheter was sutured to the skin to secure its placem ent. Vital signs were monitored throughout the procedure by a nurse, and remained stable. The patient tolerated the procedure well and left the department in the same condition. Results: Spot radiograph of the chest d emonstrates the new non-tunneled dialysis catheter to lie in the expected position with its tip overlying the cavoatrial junctio n. Impression: Successful, uncomplicated placement of a right internal jugular non-tunneled dialysis (Trialysis) cathet er using sonographic and fluoroscopic guidance. The catheter is ready for immediate use. Signed: Charly Fung MD Report Verified Date/Time: 10/05/2019 1 6:27:11 Reading Location: [place] [address] Angio Body Reading Room Performing Organization Address City/State/Zipcode Phone Number [facility] Hepatitis B surface antibody (10/05/2019 1:20 PM CDT) Hep B S Ab <8.0 <8.0 mIU/mL [facility] Specimen Blood Narrative Performed At [employer] - AARON Joon [facility] Performing Organization Address City/State/Zipcode Phone Number [facility] [address] [place] [address] CENTER Hepatitis B surface antigen (10/05/2019 1:20 PM CDT) HBsAg Screen Nonreactive Nonreactive [facility] Specimen Blood Narrative Performed At [employer] - ADMIN [facility] Performing Organization Address City/[facility] Phone Number [facility] [address] [place], [place] [address] aPTT (10/05/2019 8:09 AM CDT) PTT 30.2 23.0 - 35.0 sec [facility] Specimen Blood Narrative Performed At Final Information (Auto Output) [facility] Performing Organization Address City/[facility] Phone Number [facility] [address] [place], [place] [address] Prothromin time/INR (10/05/2019 8:09 AM CDT) Protime 10.6 9.3 - 12.0 sec [facility] INR 1.0 <=5.9 [facility] Specimen Blood Narrative Performed At RECOMMENDED COUMADIN/WARFARIN INR THERAP Y RANGES [facility] STANDARD DOSE: 2.0 - 3.0 Includes: PROPHYLAXIS for venous thrombosis, systemic embolization; TREATMENT for venou s thrombosis and/or pulmonary embolus. HIGH RISK: Target INR is 2.5-3.5 for patients with mec hanical heart valves. Final Information (Auto Output) Final Information (Auto Output) Performing Organization Address City/State/Zipcode Phone Number [facility] [address] [place], [place] [address] Fibrinogen (10/05/2019 8:09 AM CDT) Fibrinogen 960 (H) 200 - 400 mg/dL [facility] Specimen Blood Narrative Performed At Final Information (Auto Output) [facility] Performing Organization Address City/[facility]/Zipcode Phone Number [facility] [address] [place], [place] [address] Lipid panel (10/05/2019 8:06 AM CDT)Only the most recent of2 resultswithin the time period is included. Triglycerides 783 mg/dL [facility] Cholesterol 230 mg/dL [facility] HDL 9 mg/dL [facility] Specimen Blood Narrative Performed At Calculated LDL not valid if triglyceride >400 mg/dL [facility] Triglyceride Reference Range: Low Risk <150 [id number] High Risk 200-499 Very High Risk>=500 Cholesterol Reference Range: Low Risk <200 [id number] High Risk>240 HDL Cholesterol Reference Range: Low Risk >=60 High Risk <40 LDL Cholesterol Reference Range: Optimal<100 Near [id number] [id number] Very High >=190 [employer] - ADMIN [employer] - ADMIN [employer] - ADMIN [employer] - ADMIN [employer] - ADMIN [employer] - ADMIN Performing Organization Address [facility] Phone Number [facility] [address] [place], [place] [address] Blood gas, arterial (10/05/2019 5:29 AM CDT) pH, Arterial 7.24 (L) 7.35 - 7.45 [facility] pCO2, Arterial 23 (L) 35 - 45 mmHg [facility] pO2, Arterial 80 80 - 90 mmHg [facility] O2 Sat, Arterial 94.2 (L) 96.0 - 97.0 % [facility] HCO3, Arterial 10 (LL) 21 - 29 mmol/L [facility] Base Excess, Arterial -16.0 (L) -2.0 - 3.0 mmol/L [facility] Patient Temperature 37.0 C [facility] FIO2 21.0 % [facility] Specimen Blood, Arterial Performing Organization Address City/[facility]/Zipcode Phone Number [place] [id number] [place], [place] [address] Hemoglobin A1c (10/04/2019 11:57 PM CDT) Hemoglobin A1C 12.5 (H) 4.3 - 6.1 % [facility] Specimen Blood Narrative Performed At [employer] - [id number] [facility] Performing Organization Address City/State/Zipcode Phone Number [facility] [address] [place], [place] [address] Glucose-STAT (10/04/2019 11:57 PM CDT) Glucose 211 (H) 70 - 110 mg/dL [facility] Specimen Blood Narrative Performed At [employer] - [id number] [facility] Performing Organization Address City/State/Zipcode Phone Number [facility] [address] [place], [place] [address] SARS-CoV2/RT-PCR ([facility]) (10/01/2019 4:45 PM CDT) SARS-COV2/RT-PCR Negative Not Detected, Negative, [facility] See external report for MEDICAL CENTER linked test SARS-COV-2 PERFORMING LAB [facility] Specimen Other Narrative Performed At Negative result for this test determines that [facility] SARS-CoV-2 RNA was not present in the specimen above the Limit of Detection (LOD).However, Negative results do not preclude SARS-CoV-2 infection and should not be used as the sole basis for treatment or patient management decisions. Negative results must be combined with clinical observations, patient history, and epidemiological information. A false negative result may occur if a specimen is improperly collected, transported or handled.A false negative result should be considered if patient's recent exposures or clinical presentation indicate that COVID-19 (SARS-CoV-2) is likely and diagnostic tests for other causes of illness are negative.Re-testing should be considered in cases of suspected false negatives. The limit of detection for this assay is 800 copies/mL. This SARS CoV-2 test is a real-time RT-PCR test intended for the qualitative detection of nucleic acid from SARS-CoV-2 in a nasopharyngeal swab specimen collected from individuals suspected of COVID-19 by their healthcare provider. This test has not been Food and Drug Administration (FDA) cleared or approved.This is a modified version of an approved Emergency Use Authorization (EUA) and is in the process of review by the FDA. Once authorized by the FDA, the issued EUA will be effective until the declaration that circumstances exist justifying the authorization of the emergency use of in vitro diagnostic tests for detection and/or diagnosis of COVID-19 is terminated under Section 564(b)(2) of the Act or the EUA is revoked under Section 564(g) of the Act. Fact Sheet for Healthcare Providers: https://www.[employer]/sites/default/files/pro duct/documents/Fact_Sheet_HC_Providers_Lyra_SA RS-CoV-2.pdf Fact Sheet for Healthcare Patients: https://www.[employer]/sites/default/files/pro duct/documents/Fact_Sheet_Patients_Lyra_SARS-C oV-2.pdf Performing Laboratory: [address] [place] [address] Performing Organization Address City/State/Zipcode Phone Number [facility] [address] [place] [phone] CENTER after 10/24/2018 Advance Directives For more information, please contact:[address] [phone] Code Status Date Activated Date Inactivated Comments Full Code 10/04/2019 10:41 PM 10/23/2019 7:37 PM This code status was determined by: Patient
--- OUTSIDE RECORDS SUMMARY | 2019-10-25 12:02 | XMS REPORT | Continuity of Care Document ---
:1995 Author Organization [facility] t Address [address] [place] [address] Care Team Providers Name Role Phone Pcp Primary Care Physician Unavailable Cecilia Ruano MD Attending Clinician CECILIA RUANO Attending Clinician Unavailable CECILIA RUANO Admitting Clinician Unavailable Problems Condition Condition Condition Status Onset Resolution Last Treating Co mments Source Name Details Category Date Date Treatment Clinician Date Acute Acute Disease [facility] Allergies, Adverse Reactions, Alerts This patient has no known allergies or adverse reactions. Social History Social Habit Start Date Stop Date Quantity Comments Source History [facility] Alcohol [facility] - Std Drinks [facility] History [facility] Alcohol [facility] - Binge [facility] Sex Assigned At [facility] History [facility] Stress 2019-10-05 2019-10-05 3 [facility]00 [facility] History SDOH 2019-10-05 2019-10-05 [address] [facility] [address] [facility] - Financial 00:00:00 00:00:00 [facility] History [facility] Alcohol 2019-10-04 2019-10-04 [address] [facility] [address] [facility] - Frequency 00:00:00 00:00:00 [facility] Smoking Status Start Date Stop Date Source Never smoker [facility] edical Sims Medications Ordered Filled Start Stop Current Ordering Indication Dosage Frequency Signature Comments Components Source Medication Medication Date Date Medication? Clinician (SIG) Name Name NIFEdipine 2020- Yes 30mg QD Take [address] (ADALAT CC) 10-23 09-19 tablet (30 L ukes - 30 MG 24 hr 00:00: 23:59 mg total) Medical tablet 00 :00 by mouth Center daily for 30 days. carvediloL 2019- Yes 12.5mg Q.5D Take [address] (COREG) 10-22 tablet [facility] - 12.5 MG 00:00: 23:59 (12.5 mg Medic al tablet 00 :00 total) by Center mouth 2 (two) times daily for 30 days. calcium 2019- Yes 1000mg Take 2 [facility] carbonate 10-22 tablets [facility] - (TUMS) 500 00:00: 23:59 (1,000 mg M edical mg chewable 00 :00 total) by [facility] tablet mouth 3 (three) times daily as needed for up to 30 days. atorvastati 2019- Yes 40mg QD Take [address] n (LIPITOR) 10-22 tablet (40 L ukes - 40 MG 00:00: 23:59 mg total) Medica l tablet 00 :00 by mouth Center nightly for 30 days. insulin 2019- Yes 15U Q.5D Inject [address] glargine 10-22 Units [facility] - (LANTUS) 00:00: 23:59 subcutaneo Me dical 100 unit/mL 00 :00 usly 2 Center syringe (two) times daily for 30 days Use as directed. metFORMIN 2019- No 500mg Take [address] (GLUCOPHAGE 7-16 08-19 mg by [facility] - ) 500 MG 00:00: 00:00 mouth Medical tablet 00 :00 every 12 Center (twelve) hours. Vital Signs Vital Name Observation Time Observation Value Comments Source Systolic blood 2019-10-23 11:41:00 134 mm[Hg] [facility] Diastolic blood 2019-10-23 11:41:00 81 mm[Hg] [facility] S t [facility] pressure [facility] Heart rate 2019-10-23 11:41:00 94 /min [facility] Body temperature 2019-10-23 11:41:00 36.67 Lillie [facility] Respiratory rate 2019-10-23 11:41:00 20 /min [facility] Oxygen saturation in 2019-10-23 11:41:00 99 /min [facility] - Arterial blood by Medical Ce nter Pulse oximetry Body weight Measured 2019-10-23 04:49:00 147.056 kg [facility] BMI 2019-10-23 04:49:00 46.52 kg/m2 [facility] Body height 2019-10-06 17:55:00 177.8 cm [facility] Procedures Procedure Date / Time Performed Performing Clinician Sour e POCT-GLUCOSE METER 2019-10-23 11:14:00 [facility] POCT-GLUCOSE METER 2019-10-23 05:48:00 Alden [facility] COMPREHENSIVE METABOLIC 2019-10-23 05:30:[address] [facility] CBC W/PLT COUNT & AUTO 2019-10-23 05:30:00 CorunnaJuany [facility] POCT-GLUCOSE METER 2019-10-22 20:50:00 [facility] POCT-GLUCOSE METER 2019-10-22 16:33:00 Alden [facility] POCT-GLUCOSE METER 2019-10-22 11:31:00 [facility] COMPREHENSIVE METABOLIC 2019-10-22 05:54:[address] [facility] CBC W/PLT COUNT & AUTO 2019-10-22 05:54:00 CorunnaJuany [facility] POCT-GLUCOSE METER 2019-10-22 05:46:00 [facility] POCT-GLUCOSE METER 2019-10-21 20:16:00 Alden [facility] POCT-GLUCOSE METER 2019-10-21 16:54:00 Alden [facility] POCT-GLUCOSE METER 2019-10-21 12:34:00 Alden [facility] XR CHEST 1 VIEW 2019-10-21 10:17:[address] [facility] PORTABLE/BEDSIDE [facility] POCT-GLUCOSE METER 2019-10-21 06:09:00 Alden Heidy [facility] COMPREHENSIVE METABOLIC 2019-10-21 05:59:[address] [facility] CBC W/PLT COUNT & AUTO 2019-10-21 05:59:00 Juany Reid [facility] POCT-GLUCOSE METER 2019-10-20 21:10:00 Johny Ruanoalie [facility] HEMODIALYSIS INPATIENT 2019-10-20 16:52:16 Emma Mccurdy [facility] POCT-GLUCOSE METER 2019-10-20 16:33:00 [facility] POCT-GLUCOSE METER 2019-10-20 11:54:00 Alden Heidy [facility] POCT-GLUCOSE METER 2019-10-20 05:32:00 [facility] COMPREHENSIVE METABOLIC 2019-10-20 05:10:[address] [facility] POCT-GLUCOSE METER 2019-10-19 21:31:00 Alden [facility] POCT-GLUCOSE METER 2019-10-19 16:43:00 Alden [facility] POCT-GLUCOSE METER 2019-10-19 12:46:00 Heidy Ruano [facility] CBC W/PLT COUNT & AUTO 2019-10-19 09:44:00 FranklinJuany [facility] POCT-GLUCOSE METER 2019-10-19 05:52:00 Alden [facility] POCT-GLUCOSE METER 2019-10-18 20:48:00 Alden [facility] POCT-GLUCOSE METER 2019-10-18 16:18:00 Alden [facility] HEMODIALYSIS INPATIENT 2019-10-18 14:19:25 Angie Chin [facility] POCT-GLUCOSE METER 2019-10-18 11:07:00 [facility] POCT-GLUCOSE METER 2019-10-18 05:36:00 Alden Heidy [facility] COMPREHENSIVE METABOLIC 2019-10-18 04:36:00 [facility] W/PLT COUNT & AUTO 2019-10-18 04:36:00 FranklinJuany [facility] S t [facility] POCT-GLUCOSE METER 2019-10-17 20:25:00 Alden Heidy [facility] TRANSFUSION SERVICE 2019-10-17 18:06:20 Provider, Arianna [facility] REPORT - SCAN Scanning [facility] POCT-GLUCOSE METER 2019-10-17 16:41:00 Alden Heidy [facility] POCT-GLUCOSE METER 2019-10-17 11:27:00 Alden Heidy [facility] POCT-GLUCOSE METER 2019-10-17 05:56:00 Johny Ruanoalie [facility] COMPREHENSIVE METABOLIC 2019-10-17 03:40:00 [facility] CBC W/PLT COUNT & AUTO 2019-10-17 03:40:00 CorunnaJuany [facility] S t [facility] PREPARE LEUKO-REDUCED RBC 2019-10-16 23:54:00 CorunnaJuany [facility] POCT-GLUCOSE METER 2019-10-16 21:05:00 Johny Ruanoalie [facility] TRANSFUSION SERVICE 2019-10-16 18:06:26 Provider, Arianna [facility] REPORT - SCAN Scanning [facility] POCT-GLUCOSE METER 2019-10-16 17:22:00 Heidy Ruano [facility] IR TUNNELED DIALYSIS 2019-10-16 16:41:[address] Elsy [facility] CATHETER [facility] POCT-GLUCOSE METER 2019-10-16 11:44:00 Heidy Ruano [facility] HEMODIALYSIS INPATIENT 2019-10-16 07:54:33 Elsy [facility] POCT-GLUCOSE METER 2019-10-16 06:06:00 [facility] COMPREHENSIVE METABOLIC 2019-10-16 05:10:00 [facility] PANEL [facility] LIPASE 2019-10-16 05:10:00 Franklin [facility] CBC W/PLT COUNT & AUTO 2019-10-16 05:10:00 Cor[facility]na [facility] DIFFERENTIAL [facility] POCT-GLUCOSE METER 2019-10-15 20:49:00 [facility] TRANSFUSE LEUKO-REDUCED 2019-10-15 17:33:34 [facility] RED BLOOD CELLS [facility] POCT-GLUCOSE METER 2019-10-15 15:46:00 Heidy Ruano [facility] TRANSFUSE LEUKO-REDUCED 2019-10-15 14:15:[address] [facility] RED BLOOD CELLS [facility] POCT-GLUCOSE METER 2019-10-15 12:05:00 [facility] MANUAL 2019-10-15 09:34:00 Lilian Gerardo [facility] TYPE AND SCREEN, 2019-10-15 08:17:00 [facility] AUTOMATED [facility] BASIC METABOLIC PANEL (7) 2019-10-15 06:14:00 Emma Mccurdy [facility] AMYLASE 2019-10-15 06:14:00 [facility] 2019-10-15 06:14:00 Corunna [facility] CBC W/PLT COUNT & AUTO 2019-10-15 06:14:00 Corunna [facility] DIFFERENTIAL [facility] POCT-GLUCOSE METER 2019-10-15 05:26:00 Heidy Ruano [facility] POCT-GLUCOSE METER 2019-10-14 21:00:00 Heidy Ruano [facility] POCT-GLUCOSE METER 2019-10-14 18:13:00 Alden, Salman [facility] XR CHEST 1 VIEW 2019-10-14 14:06:00 Juany Reid [facility] HEMODIALYSIS INPATIENT 2019-10-14 11:31:03 Calli [facility] POCT-GLUCOSE METER 2019-10-14 11:03:00 Alden [facility] POCT-GLUCOSE METER 2019-10-14 06:48:00 Alden [facility] BASIC METABOLIC PANEL (7) 2019-10-14 05:34:00 Calli [facility] POCT-GLUCOSE METER 2019-10-13 20:55:00 Alden [facility] POCT-GLUCOSE METER 2019-10-13 16:27:00 Alden [facility] POCT-GLUCOSE METER 2019-10-13 12:22:00 Alden [facility] POCT-GLUCOSE METER 2019-10-13 06:13:00 Alden [facility] CBC (HEMOGRAM ONLY) 2019-10-13 05:14:00 Neelam [facility] BASIC METABOLIC PANEL (7) 2019-10-13 05:14:00 Calli [facility] TRIGLYCERIDES 2019-10-13 05:14:00 Calli [facility] PROCALCITONIN 2019-10-13 05:14:00 [facility] POCT-GLUCOSE METER 2019-10-12 20:36:00 Alden [facility] POCT-GLUCOSE METER 2019-10-12 16:33:00 Alden [facility] POCT-GLUCOSE METER 2019-10-12 11:55:00 Alden [facility] POCT-GLUCOSE METER 2019-10-12 05:51:00 [facility] 2019-10-12 04:42:00 Elevazo, [facility] AMYLASE 2019-10-12 04:42:00 Elevazo, [facility] LIPASE 2019-10-12 04:42:00 Elevazo, [facility] POCT-GLUCOSE METER 2019-10-11 20:38:00 Heidy Ruano [facility] BLOOD CULTURE 2019-10-11 18:44:00 Calli [facility] POCT-GLUCOSE METER 2019-10-11 16:59:00 Heidy Ruano [facility] POCT-GLUCOSE METER 2019-10-11 12:11:00 [facility] POCT-GLUCOSE METER 2019-10-11 05:39:00 Heidy Ruano [facility] COMPREHENSIVE METABOLIC 2019-10-11 05:32:00 Elevazo, [facility] MAGNESIUM 2019-10-11 05:32:00 Elevazo, [facility] AMYLASE 2019-10-11 05:32:00 Elevazo, [facility] LIPASE 2019-10-11 05:32:00 Elevazo, [facility] CBC W/PLT COUNT & AUTO 2019-10-11 05:32:00 Jessica Jimi [facility] (MANUAL DIFFERENTIAL) 2019-10-11 05:32:00 Jimi Lopez [facility] POCT-GLUCOSE METER 2019-10-10 20:33:00 Heidy Ruano [facility] POCT-GLUCOSE METER 2019-10-10 16:16:00 Heidy Ruano [facility] HEPATITIS B CORE 2019-10-10 14:35:00 Calli [facility] POCT-GLUCOSE METER 2019-10-10 11:05:00 [facility] HEMOD[facility]IS INPATIENT 2019-10-10 09:49:49 Calli [facility] POCT-GLUCOSE METER 2019-10-10 05:21:00 [facility] COMPREHENSIVE METABOLIC 2019-10-10 05:10:00 Elevazo, [facility] PANEL [facility] MAGNESIUM 2019-10-10 05:10:00 Elevazo, [facility] AMYLASE 2019-10-10 05:10:00 Elevazo, [facility] LIPASE 2019-10-10 05:10:00 Elevazo, [facility] CBC W/PLT COUNT & AUTO 2019-10-10 05:10:00 Elevazo, [facility] DIFFERENTIAL [facility] (MANUAL DIFFERENTIAL) 2019-10-10 05:10:00 Elevazo, [facility] POCT-GLUCOSE METER 2019-10-09 20:44:00 [facility] HEMODIALYSIS INPATIENT 2019-10-09 18:50:32 Emma Mccurdy [facility] POCT-GLUCOSE METER 2019-10-09 16:41:00 [facility] LIPASE 2019-10-09 15:09:00 Elevazo [facility] AMYLASE 2019-10-09 15:09:00 Elevazo, [facility] CT CHEST WITH IV CONTRAST 2019-10-09 14:18:00 Emma Mccurdy [facility] CT ABDOMEN/PELVIS WITH IV 2019-10-09 14:18:00 ElevSis orr [facility] CONTRAST [facility] POCT-GLUCOSE METER 2019-10-09 11:21:00 [facility] POCT-GLUCOSE METER 2019-10-09 06:19:00 Heidy Ruano [facility] COMPREHENSIVE METABOLIC 2019-10-09 05:09:00 Elevdominga, [facility] CBC W/PLT COUNT & AUTO 2019-10-09 05:09:00 Elevdominga, [facility] (MANUAL DIFFERENTIAL) 2019-10-09 05:09:00 Elevazo, [facility] POCT-GLUCOSE METER 2019-10-08 20:59:00 Heidy Ruano [facility] BLOOD CULTURE 2019-10-08 17:05:00 Elevazo, [facility] BLOOD CULTURE 2019-10-08 16:51:00 [facility], [facility] C-REACTIVE PROTEIN 2019-10-08 16:51:00 Elevazo, [facility] C. DIFFICILE GDH TOXIN 2019-10-08 16:36:00 Elevazo, [facility] URINALYSIS WITH 2019-10-08 16:36:[address] [facility] MICROSCOPIC IF INDICATED [facility] URINALYSIS MICROSCOPIC 2019-10-08 16:36:00 [facility], [facility] POCT-GLUCOSE METER 2019-10-08 16:30:00 Heidy Ruano [facility] XR CHEST 1 VIEW 2019-10-08 13:44:[address] [facility] PORTABLE/BEDSIDE [facility] POCT-GLUCOSE METER 2019-10-08 11:15:00 Heidy Ruano [facility] POCT-GLUCOSE METER 2019-10-08 05:56:00 Heidy Ruano [facility] BASIC METABOLIC PANEL (7) 2019-10-08 05:14:00 Emma Mccurdy [facility] TRIGLYCERIDES 2019-10-08 05:14:00 Stanislav Ivory [facility] CBC W/PLT COUNT & AUTO 2019-10-08 05:14:00 [facility] (MANUAL DIFFERENTIAL) 2019-10-08 05:14:00 Elevazo [facility] POCT-GLUCOSE METER 2019-10-08 01:00:00 Alden, [facility] POCT-GLUCOSE METER 2019-10-07 21:13:00 Alden [facility] POCT-GLUCOSE METER 2019-10-07 16:42:00 Alden Heidy [facility] POCT-GLUCOSE METER 2019-10-07 12:16:00 [facility] POCT-GLUCOSE METER 2019-10-07 06:51:00 Alden, Heidy [facility] COMPREHENSIVE METABOLIC 2019-10-07 05:58:00 AldenJohny [facility]realie [facility] I [facility] MAGNESIUM 2019-10-07 05:58:00 AldenJohny [facility]realie [facility] CBC W/PLT COUNT & AUTO 2019-10-07 05:58:00 Alden, [facility] (MANUAL DIFFERENTIAL) 2019-10-07 05:58:00 AldenJohny alejandrealie [facility] POCT-GLUCOSE METER 2019-10-07 03:33:00 [facility] POCT-GLUCOSE METER 2019-10-07 00:14:00 Alden, [facility] POCT-GLUCOSE METER 2019-10-06 21:54:00 Alden, [facility] POCT-GLUCOSE METER 2019-10-06 16:15:00 Johny Ruanoalie [facility] HEMODIALYSIS INPATIENT 2019-10-06 12:24:52 Emma Mccurdy [facility] POCT-GLUCOSE METER 2019-10-06 12:15:00 [facility] POCT-GLUCOSE METER 2019-10-06 11:03:00 Heidy Ruano [facility] HEMODIALYSIS INPATIENT 2019-10-06 10:19:34 Calli Verbenacristina [facility] POCT-GLUCOSE METER 2019-10-06 09:58:00 Heidy Ruano [facility] KETONE, BLOOD 2019-10-06 09:29:00 Dianelys Stanislavdario Bang [facility] POCT-GLUCOSE METER 2019-10-06 09:01:00 Heidy Ruano [facility] POCT-GLUCOSE METER 2019-10-06 07:50:00 [facility] POCT-GLUCOSE METER 2019-10-06 06:38:00 Heidy Ruano [facility] POCT-GLUCOSE METER 2019-10-06 05:40:00 Alden [facility] POCT-GLUCOSE METER 2019-10-06 04:33:00 Heidy Ruano [facility] CBC W/PLT COUNT & AUTO 2019-10-06 04:28:00 Calli [facility] (MANUAL DIFFERENTIAL) 2019-10-06 04:28:00 Calli [facility] BASIC METABOLIC PANEL (7) 2019-10-06 04:25:00 Emma Mccurdy I [facility] PHOSPHORUS 2019-10-06 04:25:00 Calli [facility] POCT-GLUCOSE METER 2019-10-06 02:13:00 Alden [facility] POCT-GLUCOSE METER 2019-10-06 01:03:00 Alden [facility] POCT-GLUCOSE METER 2019-10-05 23:59:00 [facility] BASIC METABOLIC PANEL (7) 2019-10-05 23:53:00 Alden Heidy [facility] POCT-GLUCOSE METER 2019-10-05 22:58:00 Alden [facility] POCT-GLUCOSE METER 2019-10-05 22:24:00 [facility] POCT-GLUCOSE METER 2019-10-05 21:30:00 [facility] BASIC METABOLIC PANEL (7) 2019-10-05 20:25:00 [facility] POCT-GLUCOSE METER 2019-10-05 19:55:00 Alden [facility] POCT-GLUCOSE METER 2019-10-05 18:57:00 Heidy Ruano [facility] POCT-GLUCOSE METER 2019-10-05 18:13:00 [facility] POCT-GLUCOSE METER 2019-10-05 15:45:00 [facility] IR NON-TUNNELED DIALYSIS 2019-10-05 14:55:00 Stanislav Ivory [facility] - CATHETER INSERTION Medical [facility] r HEPATITIS B SURFACE 2019-10-05 13:20:00 Emma Mccurdy [facility] HEPATITIS B SURFACE 2019-10-05 13:20:00 Calli [facility] BASIC METABOLIC PANEL (7) 2019-10-05 13:20:00 Heidy Ruano [facility] POCT-GLUCOSE METER 2019-10-05 12:01:00 Alden [facility] POCT-GLUCOSE METER 2019-10-05 10:28:00 Heidy Ruano [facility] HEMODIALYSIS INPATIENT 2019-10-05 09:52:18 Emma Mccurdy [facility] POCT-GLUCOSE METER 2019-10-05 09:35:00 [facility] PROTHROMBIN TIME/INR 2019-10-05 08:09:00 Stanislav Ivory [facility] APTT 2019-10-05 08:09:00 Stanislav Ivory [facility] FIBRINOGEN 2019-10-05 08:09:00 Dianelys, Stanislav [facility] COMPREHENSIVE METABOLIC 2019-10-05 08:06:[address] [facility] PANEL [facility] MAGNESIUM 2019-10-05 08:06:00 [facility] LIPID PANEL 2019-10-05 08:06:00 Calli [facility] CBC W/PLT COUNT & AUTO 2019-10-05 08:06:00 [facility] (MANUAL DIFFERENTIAL) 2019-10-05 08:06:00 Heidy Ruano [facility] POCT-GLUCOSE METER 2019-10-05 08:00:00 Heidy Ruano [facility] POCT-GLUCOSE METER 2019-10-05 06:56:00 Heidy Ruano [facility] POCT-GLUCOSE METER 2019-10-05 06:00:00 Heidy Ruano [facility] XR CHEST 1 VIEW 2019-10-05 05:35:00 [facility] BLOOD GAS, ARTERIAL 2019-10-05 05:29:00 Calli [facility] POCT-GLUCOSE METER 2019-10-05 05:02:00 Heidy Ruano [facility] POCT-GLUCOSE METER 2019-10-05 03:58:00 Heidy Ruano [facility] POCT-GLUCOSE METER 2019-10-05 02:56:00 [facility] POCT-GLUCOSE METER 2019-10-05 02:06:00 [facility] POCT-GLUCOSE METER 2019-10-05 01:02:00 Heidy Ruano [facility] COMPREHENSIVE METABOLIC 2019-10-04 23:57:[address] [facility] MAGNESIUM 2019-10-04 23:57:00 Alden [facility] LIPID PANEL 2019-10-04 23:57:00 Alden [facility] HEMOGLOBIN A1C 2019-10-04 23:57:00 Alden [facility] POCT-GLUCOSE METER 2019-10-04 23:57:00 [facility] CBC W/PLT COUNT & AUTO 2019-10-04 23:57:00 Alden [facility] POCT-GLUCOSE METER 2019-10-04 22:58:00 Alden [facility] POCT-GLUCOSE METER 2019-10-04 21:50:00 Alden [facility] SARS-COV2/RT-PCR ([facility] & 2019-10-01 16:45:00 [facility]) [facility] Results Test Description Test Time Test Comments Results Result Comments Source POC-Glucose meter 2019-10-23 11:25:00 Test Item Value Reference Range Interpretation Comme nts POC-Glucose Meter (test code = 111 mg/dL 70-110 H : TESTED AT [facility] [address]) [facility] [address]: [employer] Floorperson/Techni garett ID = [id number] for Gauri Corley Lab Interpretation (test code = Abnormal 03553-9) [facility] [id number] 11:25:00 Test Item Value Reference Range Interpretation Comments POC-GLUCOSE METER 111 mg/dL 70-110 H : TESTED A T [facility] [address] (BEAKER) (test code [place] [place] [address] [facility], = 1538) [facility] [address]: [employer] Floorperson/Techni garett ID = [id number] for Sarai Solares Comprehensive metabolic [id number] 06:24:00 Test Item Value Reference Range Interpretation Comments Protein, Total (test 8.1 6.0- 8.5 gm/dL code = 2885-2) Albumin (test code = 3.7 g/dL 3.5-5 42267-8) Alkaline Phosphatase 113 U/L 30-115 (test code = 6768-6) Total Bilirubin (test 0.5 mg/dL 0.1-1.2 code = 1974-2) Sodium (test code = 142 meq/L 636-843 6531-2) Potassium (test code = 4.7 meq/L 3.6-5.5 2823-3) Chloride (test code = 105 meq/L 98-106 2075-0) CO2 (test code = 24 meq/L 20-29 2028-9) BUN (test code = 37 mg/dL 10-26 H 3094-0) Creatinine (test code 3.61 mg/dL 0.5-1.2 H = 2160-0) Glucose (test code = 121 mg/dL 70-110 H 2345-7) Calcium (test code = 9.5 mg/dL 8.5-10.5 79396-9) AST (test code = 46 U/L 5-40 H 1920-8) ALT (test code = 25 U/L 5-50 1742-6) EGFR (test code = 21 mL/min/1.73 [place] [address]-9) NOT ACCURATE CREATININE CLEARANCE IN PREDICTING GLOMERULAR FILTRATION RATE . ESTIMATED GFR I S NOT APPLICABLE FOR DIALYSIS PATIENTS. LISET (test code = LISET) [facility] [employer] [facility] ID - [id number] Lab Interpretation Abnormal (test code = 92893-0) [facility] [id number] 06:24:00 Test Item Value Reference Range Interpretation Comments TOTAL PROTEIN 8.1 gm/dL 6.0-8.5 (BEAKER) (test code = 770) ALBUMIN (BEAKER) 3.7 g/dL 3.5-5.0 (test code = 1145) ALKALINE PHOSPHATASE 113 U/L 30-115 (BEAKER) (test code = 346) BILIRUBIN TOTAL 0.5 mg/dL 0.1-1.2 (BEAKER) (test code = 377) SODIUM (BEAKER) (test 142 meq/L 135-148 code = 381) POTASSIUM (BEAKER) 4.7 meq/L 3.6-5.5 (test code = 379) CHLORIDE (BEAKER) 105 meq/L 98-106 (test code = 382) CO2 (BEAKER) (test 24 meq/L 20-29 code = 355) BLOOD UREA NITROGEN 37 mg/dL 10-26 H (BEAKER) (test code = 354) CREATININE (BEAKER) 3.61 mg/dL 0.50-1.20 H (test code = 358) GLUCOSE RANDOM 121 mg/dL 70-110 H (BEAKER) (test code = 652) CALCIUM (BEAKER) 9.5 mg/dL 8.5-10.5 (test code = 697) AST (SGOT) (BEAKER) 46 U/L 5-40 H (test code = 353) ALT (SGPT) (BEAKER) 25 U/L 5-50 (test code = 347) EGFR (BEAKER) (test 21 mL/min/1.73 ESTIMA SUSANA GFR IS code = 1092) sq m NOT ACCURATE CREATININE CLEARANCE IN PREDICTING GLOMERULAR FILTRATION RATE . ESTIMATED GFR I S NOT APPLICABLE FOR DIALYSIS PATIEN TS. [facility] ID - ANTON-GLUCOSE [id number] 06:11:00 Test Item Value Reference Range Interpretation Comments POC-GLUCOSE METER 115 mg/dL 70-110 H : TESTED A T [facility] [address] (BEAKER) (test code [facility] [address], = 1538) [facility] 77 [address]: [facility] [employer] Floorperson/Techni garett ID = [id number] for Jennifer Teixeira ph CBC with platelet count + automated [id number] 05:57:00 Test Item Value Reference Range Interpretation Comments WBC (test code = 6690-2) 13.8 4.0- 10.0 K/L H RBC (test code = 789-8) 3.28 4.20- 5.80 M/L L MCHC (test code = 786-4) 30.7 32.0- 36.0 GM/DL L Hematocrit (test code = 4544-3) 28.3 % 36-50 L MCV (test code = 787-2) 86.3 fL 82-99 MCH (test code = 785-6) 26.5 pg 27-33 L RDW (test code = 788-0) 15.3 % 12-15 H Platelets (test code = 777-3) 403 150- 430 K/CU MM MPV (test code = 67402-5) 9.4 fL 6-11.5 nRBC (test code = 413) 0 0- 0 /100 WBC % Neutros (test code = 429) 65 % % Lymphs (test code = 430) 21 % % Monos (test code = 431) 7 % % Eos (test code = 432) 5 % % Baso (test code = 437) 1 % # Neutros (test code = 670) 9.00 1.80- 8.00 K/L H # Lymphs (test code = 414) 2.91 1.48- 4.50 K/L # Monos (test code = 415) 1.03 0.00- 1.30 K/L # Eos (test code = 416) 0.70 0.00- 0.50 K/L H # Baso (test code = 417) 0.10 0.00- 0.20 K/L Immature Granulocytes-Relative 1 % 0-0 H (test code = 2801) Lab Interpretation (test code = Abnormal 32634-9) [facility] W/PLT COUNT & AUTO [id number] 05:57:00 Test Item Value Reference Range Interpretation Comments WHITE BLOOD CELL COUNT (BEAKER) 13.8 K/ L 4.0-10.0 H (test code = 775) RED BLOOD CELL COUNT (BEAKER) 3.28 M/ L 4.20-5.80 L (test code = 761) HEMOGLOBIN (BEAKER) (test code = 8.7 GM/DL 13.0-16.8 L 410) HEMATOCRIT (BEAKER) (test code = 28.3 % 36.0-50.0 L 411) MEAN CORPUSCULAR VOLUME (BEAKER) 86.3 fL 82.0-99.0 (test code = 753) MEAN CORPUSCULAR HEMOGLOBIN 26.5 pg 27.0-33.0 L (BEAKER) (test code = 751) MEAN CORPUSCULAR HEMOGLOBIN CONC 30.7 GM/DL 32.0-36.0 L (BEAKER) (test code = 752) RED CELL DISTRIBUTION WIDTH 15.3 % 12.0-15.0 H (BEAKER) (test code = 412) PLATELET COUNT (BEAKER) (test 403 K/CU MM 150-430 code = 756) MEAN PLATELET VOLUME (BEAKER) 9.4 fL 6.0-11.5 (test code = 754) NUCLEATED RED BLOOD CELLS 0 /100 WBC 0-0 (BEAKER) (test code = 413) NEUTROPHILS RELATIVE PERCENT 65 % (BEAKER) (test code = 429) LYMPHOCYTES RELATIVE PERCENT 21 % (BEAKER) (test code = 430) MONOCYTES RELATIVE PERCENT 7 % (BEAKER) (test code = 431) EOSINOPHILS RELATIVE PERCENT 5 % (BEAKER) (test code = 432) BASOPHILS RELATIVE PERCENT 1 % (BEAKER) (test code = 437) NEUTROPHILS ABSOLUTE COUNT 9.00 K/ L 1.80-8.00 H (BEAKER) (test code = 670) LYMPHOCYTES ABSOLUTE COUNT 2.91 K/ L 1.48-4.50 (BEAKER) (test code = 414) MONOCYTES ABSOLUTE COUNT (BEAKER) 1.03 K/ L 0.00-1.30 (test code = 415) EOSINOPHILS ABSOLUTE COUNT 0.70 K/ L 0.00-0.50 H (BEAKER) (test code = 416) BASOPHILS ABSOLUTE COUNT (BEAKER) 0.10 K/ L 0.00-0.20 (test code = 417) IMMATURE GRANULOCYTES-RELATIVE 1 % 0-0 H PERCENT (BEAKER) (test code = 2801) POCT-GLUCOSE [id number] 21:03:00 Test Item Value Reference Range Interpretation Comments POC-GLUCOSE METER 124 mg/dL 70-110 H : Notified RN/MD: TESTED (BEAKER) (test code AT [facility] [address] = 1538) [facility] [address]: [facility] Floor[employer]/Techni garett ID = [id number] for Jennifer Teixeira ph POCT-GLUCOSE [id number] 16:45:00 Test Item Value Reference Range Interpretation Comments POC-GLUCOSE METER 167 mg/dL 70-110 H : TESTED A T [facility] 1317 (BEAKER) (test code [facility] [address] [facility], = 1538) [facility] 77 068: [facility] [employer] Floor[employer]/Techni garett ID = [id number] for Aleksandra Maloney POCT-GLUCOSE [id number] 11:42:00 Test Item Value Reference Range Interpretation Comments POC-GLUCOSE METER 136 mg/dL 70-110 H : TESTED A T [facility] [address] (BEAKER) (test code [address], = 1538) [facility] 77 [address]: [facility] Floorperson/Techni garett ID = [id number] for Tolo Aleksandra ANG, TUNNELED CATHETER [id number] 10:46:00Reason for Central Line/PICC?->Need for hemodialysis accessReason for exam:->DialysisFINAL REPORT Procedure: Tunneled dialysis catheter placement. History: Need for hemodialysis. Curriculum Assistant: Haim Garcia MD. Deputy District Customs Director: Lala Grigsby Modality: Sonography and fluoroscopy. DOSE REDUCTION: The examination was performed according to departmental dose-optimization program. Fluoro time: 1 minutes and3 seconds Radiation dose for this procedure was 13 mGy air Kerma. Number of images: 5 Sedation: Versed 2.5 mg and fentanyl 75 mcg was given intravenously for conscious sedation. Vital signs were monitored throughout the procedure by a dedicated RN under direct supervision of Dr. Garcia, and remained stable. Medicines: Ancef 1 g IV. Anesthesia: Lidocaine local infiltration. Physician intraprocedure sedation time was approximately 30 minutes. Estimated blood loss: < 5 cc. Technique: Informedwritten consent was obtained. Discussion of risks, benefits, and alternatives were made with the patient. The patient expressed understanding and agreed to proceed. A universal timeout was performed prior to starting the procedure. The procedure room personnel used personal protective equipment. The operators used sterile gowns and gloves additionally. A preliminary ultrasonogram was performed of the neck that revealed a patent and compressible right internal jugular vein. Pertinent ultrasound images were stored in the PACS for documentation. A sterile prep and drape of the right neck and upper chest was performed using standard technique. Using aseptic precautions, real-time ultrasound guidance, the internal jugular vein was accessed after local anesthetic infiltration and dermatotomy with a micropuncture needle. A 018 guidewire was advanced into the central venous system under fluoroscopic guidance. Over the wire a micropuncture sheath was placed. Through the micropuncture sheath, a 035 wire was advanced into the venous system under fluoroscopic guidance. Over the wire a peel-away sheath was placed. After local anesthesia, an incision was created in the subclavicular exit site location and a cuffed tunneled dialysis catheter of an appropriate length was tunneled from the exit site to the venotomy site using a tunneling device. The catheter was advanced into the venous system through the peel-away sheath which was removed. The catheter aspirated and flushed well and was terminally packed with heparin 1000 units per cc. The catheter was secured to skin using nonabsorbable suture and a CHG dressing applied. The venotomy site was closed using Dermabond. An aseptic dressing was applied using the protocol for Dermabond. The patient was transferred to the recovery area and was discharged from the department in stable condition. Complications: None immediate. Device: 15.5 Faroese x 19 cm cuff to tip Duraflow 2 catheter. Findings: Patent and compressible right internal jugular vein. Final image shows the catheter to be in good position with the catheter tip in the right atrium, an excellent position for use. There is no complication. Impression: Successful ultrasound and fluoroscopic guided right internaljugular vein route cuffed tunneled hemodialysis catheter placement as described above. At the end ofthe procedure, the James catheter was removed and an aseptic dressing applied. The James access site was in the high neck and could not be converted to a TDC. Thank you for the opportunity to assist in the care of your patient. Signed: Haim Garcia MDReport Verified Date/Time: 10/22/2019 10:46:01 Reading Location: [place] [address] Angio Body Reading Room IR Tunneled Catheter [id number] 10:46:00 Interface, External Ris In - 10/22/2019 10:48 AM CDTFINAL REPORT Procedure: Tunneled dialysis catheter placement. History: Need for hemodialysis. Curriculum Assistant: Haim Garcia MD. Deputy District Customs Director: Seb MDayanara. Modality: Sonography and fluoroscopy. DOSE REDUCTION: The examination was performed according to departmental dose-optimization program. Fluoro time: 1 minutes and 3 seconds Radiation dose for this procedure was 13 mGy air Kerma. Number of images: 5 Sedation: Versed 2.5 mg and fentanyl 75 mcg was given intravenously for conscious sedation. Vital signs were monitored throughout the procedure by a dedicated RN under direct supervisionof Dr. Garcia, and remained stable. Medicines: Ancef 1 g IV. Anesthesia: Lidocaine local infiltration. Physician intraprocedure sedation time was approximately 30 minutes. Estimated blood loss: < 5 cc. Technique: Informed written consent was obtained. Discussion of risks, benefits, and alternatives were made with the patient. The patient expressed understanding and agreed to proceed. A universal timeout was performed prior to starting the procedure. The procedure room personnel used personal protective equipment. The operators used sterile gowns and gloves additionally. A preliminary ultrasonogram was performed of the neck that revealed a patent and compressible right internal jugular vein. Pertinent ultrasound images were stored in the PACS for documentation. A sterile prep and drape of the right neck and upper chest was performed using standard technique. Using aseptic precautions, real-time ultrasound guidance, the internal jugular vein was accessed after local anesthetic infiltration and dermatotomy with a micropuncture needle. A 018 guidewire was advancedinto the central venous system under fluoroscopic guidance. Over the wire a micropuncture sheath was placed. Through the micropuncture sheath, a 035 wire was advanced into the venous system under fluoroscopic guidance. Over the wire a peel-away sheath was placed. After local anesthesia, an incision was created in the subclavicular exit site location and a cuffed tunneled dialysis catheter of an appropriate length was tunneled from the exit site to the venotomy site using a tunneling device. The catheter was advanced into the venous system through the peel-away sheath which was removed. The catheter aspirated and flushed well and was terminally packed with heparin 1000 units per cc. The catheter was secured to skin using nonabsorbable suture and a CHG dressing applied. The venotomy site was closed using Dermabond. An aseptic dressing was applied using the protocol for Dermabond. The patient was transferred to the recovery area and was discharged from the department in stable condition. Complications: None immediate. Device: 15.5 Faroese x 19 cm cuff to tip Duraflow 2 catheter. Findings: Patent and compressible right internal jugular vein. Final image shows the catheter to be in good position with the catheter tip in the right atrium, an excellent position for use. Thereis no complication. Impression: Successful ultrasound and fluoroscopic guided right internal jugular vein route cuffed tunneled hemodialysis catheter placement as described above. At the end of the procedure, the James catheter was removed and an aseptic dressing applied. The James access site was in the high neck and could not be converted to a TDC. Thank you for the opportunity to assist in the care of your patient. Signed: Haim Garcia MDReport Verified Date/Time: 10/22/2019 10:46:01 Reading Location: [place] [address] Angio Body Reading Room [facility] COMPREHENSIVE METABOLIC [id number] 06:30:00 Test Item Value Reference Range Interpretation Comments TOTAL PROTEIN 7.9 gm/dL 6.0-8.5 (BEAKER) (test code = 770) ALBUMIN (BEAKER) 3.7 g/dL 3.5-5.0 (test code = 1145) ALKALINE PHOSPHATASE 106 U/L 30-115 (BEAKER) (test code = 346) BILIRUBIN TOTAL 0.5 mg/dL 0.1-1.2 (BEAKER) (test code = 377) SODIUM (BEAKER) (test 140 meq/L 135-148 code = 381) POTASSIUM (BEAKER) 4.4 meq/L 3.6-5.5 (test code = 379) CHLORIDE (BEAKER) 102 meq/L 98-106 (test code = 382) CO2 (BEAKER) (test 26 meq/L 20-29 code = 355) BLOOD UREA NITROGEN 28 mg/dL 10-26 H (BEAKER) (test code = 354) CREATININE (BEAKER) 3.50 mg/dL 0.50-1.20 H (test code = 358) GLUCOSE RANDOM 114 mg/dL 70-110 H (BEAKER) (test code = 652) CALCIUM (BEAKER) 9.6 mg/dL 8.5-10.5 (test code = 697) AST (SGOT) (BEAKER) 56 U/L 5-40 H (test code = 353) ALT (SGPT) (BEAKER) 24 U/L 5-50 (test code = 347) EGFR (BEAKER) (test 21 mL/min/1.73 ESTIMA SUSANA GFR IS code = 1092) sq m NOT ACCURATE CREATININE CLEARANCE IN PREDICTING GLOMERULAR FILTRATION RATE . ESTIMATED GFR I S NOT APPLICABLE FOR DIALYSIS PATIEN TS. [facility] [employer] Floor[employer] ID - [id number] W/PLT COUNT & AUTO [id number] 06:13:00 Test Item Value Reference Range Interpretation Comments WHITE BLOOD CELL COUNT (BEAKER) 14.1 K/ L 4.0-10.0 H (test code = 775) RED BLOOD CELL COUNT (BEAKER) 3.42 M/ L 4.20-5.80 L (test code = 761) HEMOGLOBIN (BEAKER) (test code = 8.9 GM/DL 13.0-16.8 L 410) HEMATOCRIT (BEAKER) (test code = 29.1 % 36.0-50.0 L 411) MEAN CORPUSCULAR VOLUME (BEAKER) 85.1 fL 82.0-99.0 (test code = 753) MEAN CORPUSCULAR HEMOGLOBIN 26.0 pg 27.0-33.0 L (BEAKER) (test code = 751) MEAN CORPUSCULAR HEMOGLOBIN CONC 30.6 GM/DL 32.0-36.0 L (BEAKER) (test code = 752) RED CELL DISTRIBUTION WIDTH 15.4 % 12.0-15.0 H (BEAKER) (test code = 412) PLATELET COUNT (BEAKER) (test 411 K/CU MM 150-430 code = 756) MEAN PLATELET VOLUME (BEAKER) 9.2 fL 6.0-11.5 (test code = 754) NUCLEATED RED BLOOD CELLS 0 /100 WBC 0-0 (BEAKER) (test code = 413) NEUTROPHILS RELATIVE PERCENT 68 % (BEAKER) (test code = 429) LYMPHOCYTES RELATIVE PERCENT 20 % (BEAKER) (test code = 430) MONOCYTES RELATIVE PERCENT 7 % (BEAKER) (test code = 431) EOSINOPHILS RELATIVE PERCENT 4 % (BEAKER) (test code = 432) BASOPHILS RELATIVE PERCENT 1 % (BEAKER) (test code = 437) NEUTROPHILS ABSOLUTE COUNT 9.55 K/ L 1.80-8.00 H (BEAKER) (test code = 670) LYMPHOCYTES ABSOLUTE COUNT 2.82 K/ L 1.48-4.50 (BEAKER) (test code = 414) MONOCYTES ABSOLUTE COUNT (BEAKER) 1.01 K/ L 0.00-1.30 (test code = 415) EOSINOPHILS ABSOLUTE COUNT 0.55 K/ L 0.00-0.50 H (BEAKER) (test code = 416) BASOPHILS ABSOLUTE COUNT (AKER) 0.08 K/ L 0.00-0.20 (test code = 417) IMMATURE GRANULOCYTES-RELATIVE 1 % 0-0 H PERCENT (BEAKER) (test code = 2801) POCT-GLUCOSE [id number] 05:58:00 Test Item Value Reference Range Interpretation Comments POC-GLUCOSE METER 94 mg/dL 70-110 : [facility] (test code = [address] [facility], 1538) [place] [address]: [facility] [employer] Floorperson/Techni garett ID = [id number] for Odessa Rainey POCT-GLUCOSE [id number] 20:27:00 Test Item Value Reference Range Interpretation Comments POC-GLUCOSE METER 126 mg/dL 70-110 H : TESTED A T [facility] ([facility]) (test code [address] [facility], = 1538) [place] [address]: [facility] Floorperson/Techni garett ID = [id number] for Odessa Rainey POCT-GLUCOSE [id number] 17:05:00 Test Item Value Reference Range Interpretation Comments POC-GLUCOSE METER 215 mg/dL 70-110 H : Notified RN/MD: TESTED ([facility]) (test code AT [facility] [address] = 1538) [place] [address]: [facility] Floorperson/Techni garett ID = [id number] for Ksenia German POCT-GLUCOSE [id number] 12:45:00 Test Item Value Reference Range Interpretation Comments POC-GLUCOSE METER 80 mg/dL 70-110 : Notified RN/MD: TESTED ([facility]) (test code = AT [facility] L [address] 1538) [place] [address]: [facility] Floorperson/Techni garett ID = [id number] for a ramaLiliana alejandreKsenia RAD, CHEST, 1 VIEW, NON [id number] 10:31:00Reason for exam:->SOBShould this be performed at the bedside?->YesFINAL REPORT CLINICAL HISTORY: SOB TECHNIQUE: 1 view of the chest. COMPARISON: 10/14/2019 IMPRESSION: The right central line is unchanged. Elevation of the right hemidiaphragm isagain seen with right basilar atelectasis and blunting of the right costophrenic angle. The left lung remains relatively well-aerated. The cardiomediastinal silhouette is magnified by technique. Signed: Suhail Dominguez MDReport Verified Date/Time: 10/21/2019 10:31:25 Reading Location: [facility] Radiology Reading Room XR chest 1 view portable / [id number] 10:31:00 Interface, External Ris In - 10/21/2019 10:33 AM CDTFINAL REPORT CLINICAL HISTORY: SOB TECHNIQUE: 1 view of the chest. COMPARISON: 10/14/2019 IMPRESSION: The right central line is unchanged. Elevation of the right hemidiaphragm is again seen with right basilar atelectasis and blunting of the right costophrenic angle. The left lung remains relatively well-aerated. The cardiomediastinal silhouette is magnified by technique. Signed: Suhail Dominguez MDReport Verified Date/Time: 10/21/2019 10:31:25 Reading Location: [facility] Radiology [facility] [id number] 06:36:00 Test Item Value Reference Range Interpretation Comments TOTAL PROTEIN 7.8 gm/dL 6.0-8.5 (BEAKER) (test code = 770) ALBUMIN (BEAKER) 3.5 g/dL 3.5-5.0 (test code = 1145) ALKALINE PHOSPHATASE 110 U/L 30-115 (BEAKER) (test code = 346) BILIRUBIN TOTAL 0.4 mg/dL 0.1-1.2 (BEAKER) (test code = 377) SODIUM (BEAKER) (test 142 meq/L 135-148 code = 381) POTASSIUM (BEAKER) 4.6 meq/L 3.6-5.5 (test code = 379) CHLORIDE (BEAKER) 104 meq/L 98-106 (test code = 382) CO2 (BEAKER) (test 23 meq/L 20-29 code = 355) BLOOD UREA NITROGEN 34 mg/dL 10-26 H (BEAKER) (test code = 354) CREATININE (BEAKER) 4.48 mg/dL 0.50-1.20 H (test code = 358) GLUCOSE RANDOM 128 mg/dL 70-110 H (BEAKER) (test code = 652) CALCIUM (BEAKER) 9.0 mg/dL 8.5-10.5 (test code = 697) AST (SGOT) (BEAKER) 51 U/L 5-40 H (test code = 353) ALT (SGPT) (BEAKER) 20 U/L 5-50 (test code = 347) EGFR (BEAKER) (test 16 mL/min/1.73 ESTIMA SUSANA GFR IS code = 1092) sq m NOT ACCURATE CREATININE CLEARANCE IN PREDICTING GLOMERULAR FILTRATION RATE . ESTIMATED GFR I S NOT APPLICABLE FOR DIALYSIS PATIEN TS. [facility] [employer] Floorperson ID - RESORIANPOCT-GLUCOSE [id number] 06:20:00 Test Item Value Reference Range Interpretation Comments POC-GLUCOSE METER 114 mg/dL 70-110 H : TESTED A T [facility] [address] (BEAKER) (test code [facility] [address], = 1538) [facility] 77 [address]: [facility] Floorperson/Techni garett ID = [id number] for Odessa Rainey CBC W/PLT COUNT & AUTO [id number] 06:18:00 Test Item Value Reference Range Interpretation Comments WHITE BLOOD CELL COUNT (BEAKER) 15.4 K/ L 4.0-10.0 H (test code = 775) RED BLOOD CELL COUNT (BEAKER) 3.09 M/ L 4.20-5.80 L (test code = 761) HEMOGLOBIN (BEAKER) (test code = 8.3 GM/DL 13.0-16.8 L 410) HEMATOCRIT (BEAKER) (test code = 27.2 % 36.0-50.0 L 411) MEAN CORPUSCULAR VOLUME (BEAKER) 88.0 fL 82.0-99.0 (test code = 753) MEAN CORPUSCULAR HEMOGLOBIN 26.9 pg 27.0-33.0 L (BEAKER) (test code = 751) MEAN CORPUSCULAR HEMOGLOBIN CONC 30.5 GM/DL 32.0-36.0 L (BEAKER) (test code = 752) RED CELL DISTRIBUTION WIDTH 15.2 % 12.0-15.0 H (BEAKER) (test code = 412) PLATELET COUNT (BEAKER) (test 465 K/CU MM 150-430 H code = 756) MEAN PLATELET VOLUME (BEAKER) 9.4 fL 6.0-11.5 (test code = 754) NUCLEATED RED BLOOD CELLS 0 /100 WBC 0-0 (BEAKER) (test code = 413) NEUTROPHILS RELATIVE PERCENT 70 % (BEAKER) (test code = 429) LYMPHOCYTES RELATIVE PERCENT 19 % (BEAKER) (test code = 430) MONOCYTES RELATIVE PERCENT 7 % (BEAKER) (test code = 431) EOSINOPHILS RELATIVE PERCENT 4 % (BEAKER) (test code = 432) BASOPHILS RELATIVE PERCENT 1 % (BEAKER) (test code = 437) NEUTROPHILS ABSOLUTE COUNT 10.73 K/ L 1.80-8.00 H (BEAKER) (test code = 670) LYMPHOCYTES ABSOLUTE COUNT 2.88 K/ L 1.48-4.50 (BEAKER) (test code = 414) MONOCYTES ABSOLUTE COUNT (BEAKER) 1.00 K/ L 0.00-1.30 (test code = 415) EOSINOPHILS ABSOLUTE COUNT 0.58 K/ L 0.00-0.50 H (BEAKER) (test code = 416) BASOPHILS ABSOLUTE COUNT (BEAKER) 0.10 K/ L 0.00-0.20 (test code = 417) IMMATURE GRANULOCYTES-RELATIVE 1 % 0-0 H PERCENT (BEAKER) (test code = 2801) POCT-GLUCOSE [id number] 21:21:00 Test Item Value Reference Range Interpretation Comments POC-GLUCOSE METER 134 mg/dL 70-110 H : TESTED A T [facility] [address] (BEAKER) (test code [address], = 1538) [place] [id number]: [facility] Floor[facility]/Techni garett ID = [id number] for Odessa Rainey POCT-GLUCOSE [id number] 17:24:00 Test Item Value Reference Range Interpretation Comments POC-GLUCOSE METER 115 mg/dL 70-110 H : TESTED A T [facility] [address] (BEAKER) (test code [address], = 1538) [place] [id number]: [facility] Floorperson/Techni garett ID = [id number] for Natividad Gregory POCT-GLUCOSE [id number] 12:25:00 Test Item Value Reference Range Interpretation Comments POC-GLUCOSE METER 164 mg/dL 70-110 H : TESTED A T [facility] [address] (BEAKER) (test code [address], = 1538) [facility] 77 [address]: [facility] Floorperson/Techni garett ID = [id number] for Natividad Gregory COMPREHENSIVE METABOLIC [id number] 06:14:00 Test Item Value Reference Range Interpretation Comments TOTAL PROTEIN 7.1 gm/dL 6.0-8.5 (BEAKER) (test code = 770) ALBUMIN (BEAKER) 3.3 g/dL 3.5-5.0 L (test code = 1145) ALKALINE PHOSPHATASE 97 U/L 30-115 (BEAKER) (test code = 346) BILIRUBIN TOTAL 0.4 mg/dL 0.1-1.2 (BEAKER) (test code = 377) SODIUM (BEAKER) (test 142 meq/L 135-148 code = 381) POTASSIUM (BEAKER) 4.2 meq/L 3.6-5.5 (test code = 379) CHLORIDE (BEAKER) 105 meq/L 98-106 (test code = 382) CO2 (BEAKER) (test 24 meq/L 20-29 code = 355) BLOOD UREA NITROGEN 28 mg/dL 10-26 H (BEAKER) (test code = 354) CREATININE (BEAKER) 4.49 mg/dL 0.50-1.20 H (test code = 358) GLUCOSE RANDOM 121 mg/dL 70-110 H (BEAKER) (test code = 652) CALCIUM (BEAKER) 8.8 mg/dL 8.5-10.5 (test code = 697) AST (SGOT) (BEAKER) 48 U/L 5-40 H (test code = 353) ALT (SGPT) (BEAKER) 16 U/L 5-50 (test code = 347) EGFR (BEAKER) (test 16 mL/min/1.73 ESTIMA SUSANA GFR IS code = 1092) sq m NOT ACCURATE CREATININE CLEARANCE IN PREDICTING GLOMERULAR FILTRATION RATE . ESTIMATED GFR I S NOT APPLICABLE FOR DIALYSIS PATIEN TS. [employer] Floorperson ID - [place]-GLUCOSE [id number] 05:44:00 Test Item Value Reference Range Interpretation Comments POC-GLUCOSE METER 115 mg/dL 70-110 H : TESTED A T [facility] (BEAKER) (test code SK[place]EE ANA[place] NT [facility], = 1538) [place] [address]158: [facility] Floorperson/Techni garett ID = [id number] for Emmy wardneDallinriaz POCT-GLUCOSE [id number] 05:32:00 Test Item Value Reference Range Interpretation Comments POC-GLUCOSE METER 112 mg/dL 70-110 H : Notified RN/MD: TESTED (BEAKER) (test code AT [place] [address] [address] = 1538) [place] [id number]: [facility] Floorperson/Techni garett ID = [id number] for a rama, Ksenia POCT-GLUCOSE [id number] 05:29:00 Test Item Value Reference Range Interpretation Comments POC-GLUCOSE METER 139 mg/dL 70-110 H : Notified RN/MD: TESTED ([facility]) (test code AT [address] = 1538) [place] [address]: [facility] Floorperson/Techni garett ID = [id number] for Repa rama, Ksenia POCT-GLUCOSE [id number] 05:16:00 Test Item Value Reference Range Interpretation Comments POC-GLUCOSE METER 107 mg/dL 70-110 : TESTED A T [facility] (BEAKER) (test code SKANEE OSCAR [facility], = 1538) [place] [address]: [facility] Floorperson/Techni garett ID = [id number] for Odessa Rainey POCT-GLUCOSE [id number] 04:51:00 Test Item Value Reference Range Interpretation Comments POC-GLUCOSE METER 169 mg/dL 70-110 H : TESTED A T [facility] 1317 (BEAKER) (test code SKANEE OSC[place] NT [facility], = 1538) [place] [address]: [facility] Floorperson/Techni garett ID = [id number] for Dallin Tuckerriaz CBC W/PLT COUNT & AUTO [id number] 10:08:00 Test Item Value Reference Range Interpretation Comments WHITE BLOOD CELL COUNT ([facility]) 15.6 K/ L 4.0-10.0 H (test code = 775) RED BLOOD CELL COUNT ([facility]) 3.12 M/ L 4.20-5.80 L (test code = 761) HEMOGLOBIN (BEAKER) (test code = 8.2 GM/DL 13.0-16.8 L 410) HEMATOCRIT (BEAKER) (test code = 26.7 % 36.0-50.0 L 411) MEAN CORPUSCULAR VOLUME (BEAKER) 85.6 fL 82.0-99.0 (test code = 753) MEAN CORPUSCULAR HEMOGLOBIN 26.3 pg 27.0-33.0 L (BEAKER) (test code = 751) MEAN CORPUSCULAR HEMOGLOBIN CONC 30.7 GM/DL 32.0-36.0 L (BEAKER) (test code = 752) RED CELL DISTRIBUTION WIDTH 14.7 % 12.0-15.0 (BEAKER) (test code = 412) PLATELET COUNT (BEAKER) (test 493 K/CU MM 150-430 H code = 756) MEAN PLATELET VOLUME (BEAKER) 9.4 fL 6.0-11.5 (test code = 754) NUCLEATED RED BLOOD CELLS 0 /100 WBC 0-0 (BEAKER) (test code = 413) NEUTROPHILS RELATIVE PERCENT 70 % (BEAKER) (test code = 429) LYMPHOCYTES RELATIVE PERCENT 18 % (BEAKER) (test code = 430) MONOCYTES RELATIVE PERCENT 8 % (BEAKER) (test code = 431) EOSINOPHILS RELATIVE PERCENT 3 % (BEAKER) (test code = 432) BASOPHILS RELATIVE PERCENT 1 % (BEAKER) (test code = 437) NEUTROPHILS ABSOLUTE COUNT 10.88 K/ L 1.80-8.00 H (BEAKER) (test code = 670) LYMPHOCYTES ABSOLUTE COUNT 2.75 K/ L 1.48-4.50 (BEAKER) (test code = 414) MONOCYTES ABSOLUTE COUNT (BEAKER) 1.27 K/ L 0.00-1.30 (test code = 415) EOSINOPHILS ABSOLUTE COUNT 0.50 K/ L 0.00-0.50 (BEAKER) (test code = 416) BASOPHILS ABSOLUTE COUNT (BEAKER) 0.09 K/ L 0.00-0.20 (test code = 417) IMMATURE GRANULOCYTES-RELATIVE 1 % 0-0 H PERCENT (BEAKER) (test code = 2801) POCT-GLUCOSE [id number] 20:59:00 Test Item Value Reference Range Interpretation Comments POC-GLUCOSE METER 196 mg/dL 70-110 H : Notified RN/MD: TESTED ([facility]) (test code AT [facility] [address] = 1538) [place] [id number]: [facility] Floorperson/Techni garett ID = [id number] for Odessa Rainey POCT-GLUCOSE [id number] 16:29:00 Test Item Value Reference Range Interpretation Comments POC-GLUCOSE METER 169 mg/dL 70-110 H : TESTED A T [facility] 1317 (BEAKER) (test code [facility] NT [facility], = 1538) [place] [address]: [facility] Floorperson/Techni garett ID = [id number] for Dallin Tuckerinor POCT-GLUCOSE [id number] 11:18:00 Test Item Value Reference Range Interpretation Comments POC-GLUCOSE METER 197 mg/dL 70-110 H : TESTED A T [facility] (test code [facility] NT [facility], = 1538) [place] [address]: [facility] Floorperson/Techni garett ID = [id number] for Emmy cedillo, Dallininor POCT-GLUCOSE [id number] 05:47:00 Test Item Value Reference Range Interpretation Comments POC-GLUCOSE METER 116 mg/dL 70-110 H : Notified RN/MD: TESTED ([facility]) (test code AT [facility] [address] POINT = 1538) [place] [address]: [facility] Floorperson/Techni garett ID = [id number] for Klaus Martinezisha COMPREHENSIVE METABOLIC [id number] 05:16:00 Test Item Value Reference Range Interpretation Comments TOTAL PROTEIN 7.1 gm/dL 6.0-8.5 Specimen sligh tly (BEAKER) (test code = hemoly zed 770) ALBUMIN (BEAKER) 3.1 g/dL 3.5-5.0 L Specimen sl ightly (test code = 1145) hemolyzed ALKALINE PHOSPHATASE 103 U/L 30-115 (BEAKER) (test code = 346) BILIRUBIN TOTAL 0.4 mg/dL 0.1-1.2 Specimen sli ghtly (BEAKER) (test code = hemoly zed 377) SODIUM (BEAKER) (test 141 meq/L 135-148 code = 381) POTASSIUM (BEAKER) 4.4 meq/L 3.6-5.5 Specimen slightly (test code = 379) hemolyzed CHLORIDE (BEAKER) 103 meq/L 98-106 (test code = 382) CO2 (BEAKER) (test 22 meq/L 20-29 code = 355) BLOOD UREA NITROGEN 29 mg/dL 10-26 H (BEAKER) (test code = 354) CREATININE (BEAKER) 4.99 mg/dL 0.50-1.20 H Specimen slightly (test code = 358) hemolyzed GLUCOSE RANDOM 123 mg/dL 70-110 H (BEAKER) (test code = 652) CALCIUM (BEAKER) 8.4 mg/dL 8.5-10.5 L (test code = 697) AST (SGOT) (BEAKER) 41 U/L 5-40 H Specimen slightly (test code = 353) hemolyzed ALT (SGPT) (BEAKER) 14 U/L 5-50 Specimen slightly (test code = 347) hemolyzed EGFR (BEAKER) (test 14 mL/min/1.73 ESTIMA SUSANA GFR IS code = 1092) sq m NOT ACCURATE CREATININE CLEARANCE IN PREDICTING GLOMERULAR FILTRATION RATE . ESTIMATED GFR I S NOT APPLICABLE FOR DIALYSIS PATIEN TS. [facility] Floorperson ID - JUSTINCBC W/PLT COUNT & AUTO [id number] 04:55:00 Test Item Value Reference Range Interpretation Comments WHITE BLOOD CELL COUNT (BEAKER) 16.9 K/ L 4.0-10.0 H (test code = 775) RED BLOOD CELL COUNT (BEAKER) 3.24 M/ L 4.20-5.80 L (test code = 761) HEMOGLOBIN (BEAKER) (test code = 8.5 GM/DL 13.0-16.8 L 410) HEMATOCRIT (BEAKER) (test code = 28.0 % 36.0-50.0 L 411) MEAN CORPUSCULAR VOLUME (BEAKER) 86.4 fL 82.0-99.0 (test code = 753) MEAN CORPUSCULAR HEMOGLOBIN 26.2 pg 27.0-33.0 L (BEAKER) (test code = 751) MEAN CORPUSCULAR HEMOGLOBIN CONC 30.4 GM/DL 32.0-36.0 L (BEAKER) (test code = 752) RED CELL DISTRIBUTION WIDTH 14.7 % 12.0-15.0 (BEAKER) (test code = 412) PLATELET COUNT (BEAKER) (test 494 K/CU MM 150-430 H code = 756) MEAN PLATELET VOLUME (BEAKER) 9.8 fL 6.0-11.5 (test code = 754) NUCLEATED RED BLOOD CELLS 0 /100 WBC 0-0 (BEAKER) (test code = 413) NEUTROPHILS RELATIVE PERCENT 68 % (BEAKER) (test code = 429) LYMPHOCYTES RELATIVE PERCENT 19 % (BEAKER) (test code = 430) MONOCYTES RELATIVE PERCENT 9 % (BEAKER) (test code = 431) EOSINOPHILS RELATIVE PERCENT 3 % (BEAKER) (test code = 432) BASOPHILS RELATIVE PERCENT 1 % (BEAKER) (test code = 437) NEUTROPHILS ABSOLUTE COUNT 11.45 K/ L 1.80-8.00 H (BEAKER) (test code = 670) LYMPHOCYTES ABSOLUTE COUNT 3.14 K/ L 1.48-4.50 (BEAKER) (test code = 414) MONOCYTES ABSOLUTE COUNT (BEAKER) 1.48 K/ L 0.00-1.30 H (test code = 415) EOSINOPHILS ABSOLUTE COUNT 0.56 K/ L 0.00-0.50 H (BEAKER) (test code = 416) BASOPHILS ABSOLUTE COUNT (BEAKER) 0.09 K/ L 0.00-0.20 (test code = 417) IMMATURE GRANULOCYTES-RELATIVE 1 % 0-0 H PERCENT (BEAKER) (test code = 2801) POCT-GLUCOSE [id number] 20:40:00 Test Item Value Reference Range Interpretation Comments POC-GLUCOSE METER 119 mg/dL 70-110 H : Notified RN/MD: TESTED (BEAKER) (test code AT [facility] [address] [place] [address] = 1538) [facility] [address]: [facility] Floorperson/Techni garett ID = [id number] for Otatiffany miramontesAurea POCT-GLUCOSE [id number] 16:53:00 Test Item Value Reference Range Interpretation Comments POC-GLUCOSE METER 236 mg/dL 70-110 H : TESTED A T [facility] 1317 ([facility]) (test code [facility] NT [facility], = 1538) [facility] 77 [address]: [facility] Floorperson/Techni garett ID = [id number] for Jesus Maloneysa POCT-GLUCOSE [id number] 11:39:00 Test Item Value Reference Range Interpretation Comments POC-GLUCOSE METER 171 mg/dL 70-110 H : TESTED A T [facility] (BEAKER) (test code [address], = 1538) [facility] 77 [address]: [facility] Floorperson/Techni garett ID = [id number] for Aleksandra Maloney POCT-GLUCOSE [id number] 06:07:00 Test Item Value Reference Range Interpretation Comments POC-GLUCOSE METER 140 mg/dL 70-110 H : Notified RN/MD: TESTED (BEAKER) (test code AT [facility] [address] = 1538) [address], [facility] [address]: [facility] Floorperson/Techni garett ID = [id number] for Mary Dixon CBC W/PLT COUNT & AUTO [id number] 04:32:00 Test Item Value Reference Range Interpretation Comments WHITE BLOOD CELL COUNT (BEAKER) 19.8 K/ L 4.0-10.0 H (test code = 775) RED BLOOD CELL COUNT (BEAKER) 3.38 M/ L 4.20-5.80 L (test code = 761) HEMOGLOBIN (BEAKER) (test code = 8.7 GM/DL 13.0-16.8 L 410) HEMATOCRIT (BEAKER) (test code = 28.3 % 36.0-50.0 L 411) MEAN CORPUSCULAR VOLUME (BEAKER) 83.7 fL 82.0-99.0 (test code = 753) MEAN CORPUSCULAR HEMOGLOBIN 25.7 pg 27.0-33.0 L (BEAKER) (test code = 751) MEAN CORPUSCULAR HEMOGLOBIN CONC 30.7 GM/DL 32.0-36.0 L (BEAKER) (test code = 752) RED CELL DISTRIBUTION WIDTH 14.6 % 12.0-15.0 (BEAKER) (test code = 412) PLATELET COUNT (BEAKER) (test 497 K/CU MM 150-430 H code = 756) MEAN PLATELET VOLUME (BEAKER) 10.2 fL 6.0-11.5 (test code = 754) NUCLEATED RED BLOOD CELLS 0 /100 WBC 0-0 (BEAKER) (test code = 413) NEUTROPHILS RELATIVE PERCENT 72 % (BEAKER) (test code = 429) LYMPHOCYTES RELATIVE PERCENT 16 % (BEAKER) (test code = 430) MONOCYTES RELATIVE PERCENT 8 % (BEAKER) (test code = 431) EOSINOPHILS RELATIVE PERCENT 2 % (BEAKER) (test code = 432) BASOPHILS RELATIVE PERCENT 0 % (BEAKER) (test code = 437) NEUTROPHILS ABSOLUTE COUNT 14.25 K/ L 1.80-8.00 H (BEAKER) (test code = 670) LYMPHOCYTES ABSOLUTE COUNT 3.25 K/ L 1.48-4.50 (BEAKER) (test code = 414) MONOCYTES ABSOLUTE COUNT (BEAKER) 1.59 K/ L 0.00-1.30 H (test code = 415) EOSINOPHILS ABSOLUTE COUNT 0.48 K/ L 0.00-0.50 (BEAKER) (test code = 416) BASOPHILS ABSOLUTE COUNT (BEAKER) 0.07 K/ L 0.00-0.20 (test code = 417) IMMATURE GRANULOCYTES-RELATIVE 1 % 0-0 H PERCENT (BEAKER) (test code = 2801) COMPREHENSIVE METABOLIC [id number] 04:30:00 Test Item Value Reference Range Interpretation Comments TOTAL PROTEIN 7.5 gm/dL 6.0-8.5 Specimen sligh tly (BEAKER) (test code = hemoly zed 770) ALBUMIN (BEAKER) 3.2 g/dL 3.5-5.0 L Specimen sl ightly (test code = 1145) hemolyzed ALKALINE PHOSPHATASE 111 U/L 30-115 (BEAKER) (test code = 346) BILIRUBIN TOTAL 0.6 mg/dL 0.1-1.2 Specimen sli ghtly (BEAKER) (test code = hemoly zed 377) SODIUM (BEAKER) (test 139 meq/L 135-148 code = 381) POTASSIUM (BEAKER) 3.9 meq/L 3.6-5.5 Specimen slightly (test code = 379) hemolyzed CHLORIDE (BEAKER) 99 meq/L 98-106 (test code = 382) CO2 (BEAKER) (test 27 meq/L 20-29 code = 355) BLOOD UREA NITROGEN 21 mg/dL 10-26 (BEAKER) (test code = 354) CREATININE (BEAKER) 3.99 mg/dL 0.50-1.20 H Specimen slightly (test code = 358) hemolyzed GLUCOSE RANDOM 105 mg/dL 70-110 (BEAKER) (test code = 652) CALCIUM (BEAKER) 8.7 mg/dL 8.5-10.5 (test code = 697) AST (SGOT) (BEAKER) 42 U/L 5-40 H Specimen slightly (test code = 353) hemolyzed ALT (SGPT) (BEAKER) 16 U/L 5-50 Specimen slightly (test code = 347) hemolyzed EGFR (BEAKER) (test 18 mL/min/1.73 ESTIMA SUSANA GFR IS code = 1092) sq m NOT ACCURATE CREATININE CLEARANCE IN PREDICTING GLOMERULAR FILTRATION RATE . ESTIMATED GFR I S NOT APPLICABLE FOR DIALYSIS PATIEN TS. [facility] Floorperson ID - [id number] Leuko-Red [id number] 23:54:00 Test Item Value Reference Range Interpretation Comments CROSSMATCH (test code = 2264) COMPATIBLE Unit ABO (test code = O Pos [id number]) UNIT NUMBER (test code = [id number] 934-0) Status (test code = 8081372) TX_TIMEINCHART Blood Bank Product (test code RED BLOOD CELLS = 2263) PRODUCT CODE (test code = T4013D79 933-2) [facility] Culture - Rule Out Line Infection (Central Line)2019-10-16 22:00:00 Test Item Value Reference Range Interpretation Comments Result (test code = No growth in 5 days 6463-4) [id number] 22:00:00 Test Item Value Reference Range Interpretation Comments CULTURE (BEAKER) (test No growth in 5 days code = 1095) POCT-GLUCOSE [id number] 21:16:00 Test Item Value Reference Range Interpretation Comments POC-GLUCOSE METER 158 mg/dL 70-110 H : Notified RN/MD: TESTED (BEAKER) (test code AT [facility] [address] = 1538) [facility] [address]: [facility] Floorperson/Techni garett ID = [id number] for Mary Dixon POCT-GLUCOSE [id number] 17:33:00 Test Item Value Reference Range Interpretation Comments POC-GLUCOSE METER 117 mg/dL 70-110 H : TESTED A T [facility] (BEAKER) (test code [place] [address], = 1538) [facility] 77 [address]: [facility] Floorperson/Techni garett ID = [id number] for Aleksandra Maloney POCT-GLUCOSE [id number] 11:56:00 Test Item Value Reference Range Interpretation Comments POC-GLUCOSE METER 124 mg/dL 70-110 H : TESTED A T [facility] (BEAKER) (test code [place] [facility], = 1538) [facility] [place] 77 [address]: [facility] Floorperson/Techni garett ID = [id number] for Aleksandra Maloney [id number] 08:35:00 Test Item Value Reference Range Interpretation Comments Lipase (test code = 87 U/L 6-51 H 3040-3) LISET (test code = LISET) [facility] Floorperson ID - [id number] Lab Interpretation (test Abnormal code = 11284-0) [facility] 08:35[facility] Test Item Value Reference Range Interpretation Comments LIPASE (BEAKER) (test code = 749) 87 U/L 6-51 H [facility] Floorperson ID - [id number] 06:17:00 Test Item Value Reference Range Interpretation Comments POC-GLUCOSE METER 118 mg/dL 70-110 H : Notified RN/MD: TESTED (BEAKER) (test code AT [facility] [address] = 1538) [facility] [address]: [facility] Floorperson/Techni garett ID = [id number] for Mary Dixon COMPREHENSIVE METABOLIC [id number] 06:02:00 Test Item Value Reference Range Interpretation Comments TOTAL PROTEIN 7.0 gm/dL 6.0-8.5 (BEAKER) (test code = 770) ALBUMIN (BEAKER) 3.1 g/dL 3.5-5.0 L (test code = 1145) ALKALINE PHOSPHATASE 107 U/L 30-115 (BEAKER) (test code = 346) BILIRUBIN TOTAL 0.5 mg/dL 0.1-1.2 (BEAKER) (test code = 377) SODIUM (BEAKER) (test 138 meq/L 135-148 code = 381) POTASSIUM (BEAKER) 3.8 meq/L 3.6-5.5 (test code = 379) CHLORIDE (BEAKER) 100 meq/L 98-106 (test code = 382) CO2 (BEAKER) (test 25 meq/L 20-29 code = 355) BLOOD UREA NITROGEN 30 mg/dL 10-26 H (BEAKER) (test code = 354) CREATININE (BEAKER) 5.66 mg/dL 0.50-1.20 H (test code = 358) GLUCOSE RANDOM 131 mg/dL 70-110 H (BEAKER) (test code = 652) CALCIUM (BEAKER) 8.0 mg/dL 8.5-10.5 L (test code = 697) AST (SGOT) (BEAKER) 32 U/L 5-40 (test code = 353) ALT (SGPT) (BEAKER) 13 U/L 5-50 (test code = 347) EGFR (BEAKER) (test 12 mL/min/1.73 ESTIMA SUSANA GFR IS code = 1092) sq m NOT ACCURATE CREATININE CLEARANCE IN PREDICTING GLOMERULAR FILTRATION RATE . ESTIMATED GFR I S NOT APPLICABLE FOR DIALYSIS PATIEN TS. [facility] Floorperson ID - [id number] W/PLT COUNT & AUTO [id number] 05:48:00 Test Item Value Reference Range Interpretation Comments WHITE BLOOD CELL COUNT (BEAKER) 22.8 K/ L 4.0-10.0 H (test code = 775) RED BLOOD CELL COUNT (BEAKER) 3.20 M/ L 4.20-5.80 L (test code = 761) HEMOGLOBIN (BEAKER) (test code = 8.4 GM/DL 13.0-16.8 L 410) HEMATOCRIT (BEAKER) (test code = 27.0 % 36.0-50.0 L 411) MEAN CORPUSCULAR VOLUME (BEAKER) 84.4 fL 82.0-99.0 (test code = 753) MEAN CORPUSCULAR HEMOGLOBIN 26.3 pg 27.0-33.0 L (BEAKER) (test code = 751) MEAN CORPUSCULAR HEMOGLOBIN CONC 31.1 GM/DL 32.0-36.0 L (BEAKER) (test code = 752) RED CELL DISTRIBUTION WIDTH 14.6 % 12.0-15.0 (BEAKER) (test code = 412) PLATELET COUNT (BEAKER) (test 482 K/CU MM 150-430 H code = 756) MEAN PLATELET VOLUME (BEAKER) 10.2 fL 6.0-11.5 (test code = 754) NUCLEATED RED BLOOD CELLS 0 /100 WBC 0-0 (BEAKER) (test code = 413) NEUTROPHILS RELATIVE PERCENT 71 % (BEAKER) (test code = 429) LYMPHOCYTES RELATIVE PERCENT 16 % (BEAKER) (test code = 430) MONOCYTES RELATIVE PERCENT 9 % (BEAKER) (test code = 431) EOSINOPHILS RELATIVE PERCENT 3 % (BEAKER) (test code = 432) BASOPHILS RELATIVE PERCENT 0 % (BEAKER) (test code = 437) NEUTROPHILS ABSOLUTE COUNT 16.18 K/ L 1.80-8.00 H (BEAKER) (test code = 670) LYMPHOCYTES ABSOLUTE COUNT 3.54 K/ L 1.48-4.50 (BEAKER) (test code = 414) MONOCYTES ABSOLUTE COUNT (BEAKER) 2.07 K/ L 0.00-1.30 H (test code = 415) EOSINOPHILS ABSOLUTE COUNT 0.59 K/ L 0.00-0.50 H (BEAKER) (test code = 416) BASOPHILS ABSOLUTE COUNT (BEAKER) 0.08 K/ L 0.00-0.20 (test code = 417) IMMATURE GRANULOCYTES-RELATIVE 1 % 0-0 H PERCENT (BEAKER) (test code = 2801) POCT-GLUCOSE [id number] 21:00:00 Test Item Value Reference Range Interpretation Comments POC-GLUCOSE METER 148 mg/dL 70-110 H : Notified RN/MD: TESTED ([facility]) (test code AT [address] PO[address] = 1538) [place] [id number]: [facility] Floorperson/Techni garett ID = [id number] for Zack Miguelangelar POCT-GLUCOSE [id number] 16:15:00 Test Item Value Reference Range Interpretation Comments POC-GLUCOSE METER 173 mg/dL 70-110 H : TESTED A T [facility] 1317 (BEAKER) (test code [facility], = 1538) [place] [address]: [facility] Floorperson/Techni garett ID = [id number] for Natividad Gregory POCT-GLUCOSE [id number] 12:17:00 Test Item Value Reference Range Interpretation Comments POC-GLUCOSE METER 207 mg/dL 70-110 H : TESTED A T [facility] 1317 (BEAKER) (test code [facility], = 1538) [place] [address]: [facility] Floorperson/Techni garett ID = [id number] for Ellie Pedersen, [id number] 09:50:00 Test Item Value Reference Range Interpretation Comments ABO Grouping (test code O = 2588) Rh Factor (test code = POS 2019 @ 0931 PINK 2589) TOP [id number] [facility], [id number] 09:27:00 Test Item Value Reference Range Interpretation Comments ABO/RH AUTOMATED (BEAKER) (test O POSITIVE code = 2260) Ab Scrn (test code = 890-4) NEGATIVE [facility] 09:07:00 Test Item Value Reference Range Interpretation Comments LIPASE (BEAKER) (test code = 749) 98 U/L 6-51 H [facility] Floorperson ID - [id number] 08:58:00 Test Item Value Reference Range Interpretation Comments Amylase (test code = 79 U/L 30-110 1798-8) LISET (test code = LISET) [facility] Floorperson ID - [id number] Lab Interpretation (test Normal code = 51404-9) [facility] 08:58:00 Test Item Value Reference Range Interpretation Comments AMYLASE (BEAKER) (test code = 349) 79 U/L 30-110 [facility] Floorperson ID - JUSTINBasic Metabolic [id number] 06:46:00 Test Item Value Reference Range Interpretation Comments Sodium (test code = 138 meq/L 299-884 3428-2) Potassium (test code = 3.9 meq/L 3.6-5.5 2823-3) Chloride (test code = 99 meq/L 98-106 2075-0) CO2 (test code = 25 meq/L 20-29 2028-9) BUN (test code = 20 mg/dL 10-26 3094-0) Creatinine (test code 4.87 mg/dL 0.5-1.2 H = 2160-0) Glucose (test code = 137 mg/dL 70-110 H 2345-7) Calcium (test code = 7.9 mg/dL 8.5-10.5 L 73872-3) EGFR (test code = 15 mL/min/1.73 [place] [address]-9) NOT ACCURATE CREATININE CLEARANCE IN PREDICTING GLOMERULAR FILTRATION RATE . ESTIMATED GFR I S NOT APPLICABLE FOR DIALYSIS PATIENTS. LISET (test code = LISET) [facility] Floorperson ID - [id number] Lab Interpretation Abnormal (test code = 64281-4) [place] [facility] METABOLIC [id number] 06:46:00 Test Item Value Reference Range Interpretation Comments SODIUM (BEAKER) 138 meq/L 135-148 (test code = 381) POTASSIUM (BEAKER) 3.9 meq/L 3.6-5.5 (test code = 379) CHLORIDE (BEAKER) 99 meq/L 98-106 (test code = 382) CO2 (BEAKER) (test 25 meq/L 20-29 code = 355) BLOOD UREA NITROGEN 20 mg/dL 10-26 (BEAKER) (test code = 354) CREATININE (BEAKER) 4.87 mg/dL 0.50-1.20 H (test code = 358) GLUCOSE RANDOM 137 mg/dL 70-110 H (BEAKER) (test code = 652) CALCIUM (BEAKER) 7.9 mg/dL 8.5-10.5 L (test code = 697) EGFR (BEAKER) (test 15 mL/min/1.73 ESTIMA SUSANA GFR IS code = 1092) sq m NOT ACCURATE CREATININE CLEARANCE IN PREDICTING GLOMERULAR FILTRATION RATE . ESTIMATED GFR I S NOT APPLICABLE FOR DIALYSIS PATIEN TS. [facility] Floor[facility] ID - [id number] W/PLT COUNT & AUTO [id number] 06:29:00 Test Item Value Reference Range Interpretation Comments WHITE BLOOD CELL COUNT (BEAKER) 24.0 K/ L 4.0-10.0 H (test code = 775) RED BLOOD CELL COUNT (BEAKER) 2.69 M/ L 4.20-5.80 L (test code = 761) HEMOGLOBIN (BEAKER) (test code = 6.9 GM/DL 13.0-16.8 L 410) HEMATOCRIT (BEAKER) (test code = 22.3 % 36.0-50.0 L 411) MEAN CORPUSCULAR VOLUME (BEAKER) 82.9 fL 82.0-99.0 (test code = 753) MEAN CORPUSCULAR HEMOGLOBIN 25.7 pg 27.0-33.0 L (BEAKER) (test code = 751) MEAN CORPUSCULAR HEMOGLOBIN CONC 30.9 GM/DL 32.0-36.0 L (BEAKER) (test code = 752) RED CELL DISTRIBUTION WIDTH 14.4 % 12.0-15.0 (BEAKER) (test code = 412) PLATELET COUNT (BEAKER) (test 409 K/CU MM 150-430 code = 756) MEAN PLATELET VOLUME (BEAKER) 10.2 fL 6.0-11.5 (test code = 754) NUCLEATED RED BLOOD CELLS 0 /100 WBC 0-0 (BEAKER) (test code = 413) NEUTROPHILS RELATIVE PERCENT 72 % (BEAKER) (test code = 429) LYMPHOCYTES RELATIVE PERCENT 16 % (BEAKER) (test code = 430) MONOCYTES RELATIVE PERCENT 9 % (BEAKER) (test code = 431) EOSINOPHILS RELATIVE PERCENT 2 % (BEAKER) (test code = 432) BASOPHILS RELATIVE PERCENT 0 % (BEAKER) (test code = 437) NEUTROPHILS ABSOLUTE COUNT 17.16 K/ L 1.80-8.00 H (BEAKER) (test code = 670) LYMPHOCYTES ABSOLUTE COUNT 3.75 K/ L 1.48-4.50 (BEAKER) (test code = 414) MONOCYTES ABSOLUTE COUNT (BEAKER) 2.08 K/ L 0.00-1.30 H (test code = 415) EOSINOPHILS ABSOLUTE COUNT 0.54 K/ L 0.00-0.50 H (BEAKER) (test code = 416) BASOPHILS ABSOLUTE COUNT (BEAKER) 0.07 K/ L 0.00-0.20 (test code = 417) IMMATURE GRANULOCYTES-RELATIVE 2 % 0-0 H PERCENT (BEAKER) (test code = 2801) POCT-GLUCOSE [id number] 05:37:00 Test Item Value Reference Range Interpretation Comments POC-GLUCOSE METER 127 mg/dL 70-110 H : Notified RN/MD: TESTED (BEAKER) (test code AT [facility] [address] = 1538) [facility] [id number]: [facility] Floorperson/Techni garett ID = [id number] for Mary Dixon POCT-GLUCOSE [id number] 21:22:00 Test Item Value Reference Range Interpretation Comments POC-GLUCOSE METER 140 mg/dL 70-110 H : TESTED A T [facility] [address] ([facility]) (test code [facility], = 1538) [place] [id number]: [facility] Floorperson/Techni garett ID = [id number] for Denise Alva POCT-GLUCOSE [id number] 18:24:00 Test Item Value Reference Range Interpretation Comments POC-GLUCOSE METER 115 mg/dL 70-110 H : Notified RN/MD: [facility] (test code AT [facility] [address] = 1538) [place] [id number]: [facility] Floorperson/Techni garett ID = [id number] for Ksenia German RAD, CHEST, 1 VIEW, NON [id number] 14:11:00Reason for exam:- >dyspneaShould this be performed at the bedside?->YesFINAL REPORT CHEST AP PORTABLE SEMIERECT History provided: Dyspnea Comparison exam: CT performed five days ago Right hemidiaphragm elevated. Mild atelectatic change at the right base. Lungs otherwise clear and vascularity normal. Signed: [facility] Verified Date/Time: 10/14/2019 14:11:06 Reading Location: [facility] Radiology Reading Room POCT-GLUCOSE [id number] 11:13:00 Test Item Value Reference Range Interpretation Comments POC-GLUCOSE METER 213 mg/dL 70-110 H : Notified RN/MD: TESTED ([facility]) (test code AT [facility] [address] = 1538) [place] [address]: [facility] Floorperson/Techni garett ID = [id number] for Ksenia German POCT-GLUCOSE [id number] 06:59:00 Test Item Value Reference Range Interpretation Comments POC-GLUCOSE METER 164 mg/dL 70-110 H : TESTED A T [facility] 1317 ([facility]) (test code SNOW [address] NT [facility], = 1538) [place] [address]: [facility] Floor[employer]/Techni garett ID = [id number] for Saray Rosarioen BASIC METABOLIC [id number] 06:17:00 Test Item Value Reference Range Interpretation Comments SODIUM (BEAKER) 138 meq/L 135-148 (test code = 381) POTASSIUM (BEAKER) 3.7 meq/L 3.6-5.5 (test code = 379) CHLORIDE (BEAKER) 98 meq/L 98-106 (test code = 382) CO2 (BEAKER) (test 23 meq/L 20-29 code = 355) BLOOD UREA NITROGEN 32 mg/dL 10-26 H (BEAKER) (test code = 354) CREATININE (BEAKER) 6.68 mg/dL 0.50-1.20 H (test code = 358) GLUCOSE RANDOM 157 mg/dL 70-110 H (BEAKER) (test code = 652) CALCIUM (BEAKER) 7.8 mg/dL 8.5-10.5 L (test code = 697) EGFR (BEAKER) (test 10 mL/min/1.73 ESTIMA SUSANA GFR IS code = 1092) sq m NOT ACCURATE CREATININE CLEARANCE IN PREDICTING GLOMERULAR FILTRATION RATE . ESTIMATED GFR I S NOT APPLICABLE FOR DIALYSIS PATIEN TS. [facility] ID - RESORIANPOCT-GLUCOSE [id number] 21:06:00 Test Item Value Reference Range Interpretation Comments POC-GLUCOSE METER 156 mg/dL 70-110 H : TESTED A T [facility] [address] (BEAKER) (test code [address], = 1538) [place] [address]: [facility] Floor[facility]/Techni garett ID = [id number] for Chloe Page BLOOD [id number] 19:00:00 Test Item Value Reference Range Interpretation Comments CULTURE (BEAKER) (test No growth in 5 days code = 1095) BLOOD [id number] 19:00:00 Test Item Value Reference Range Interpretation Comments CULTURE (BEAKER) (test No growth in 5 days code = 1095) POCT-GLUCOSE [id number] 16:38:00 Test Item Value Reference Range Interpretation Comments POC-GLUCOSE METER 204 mg/dL 70-110 H : TESTED A T [facility] [address] (BEAKER) (test code [address], = 1538) [place] [address]: [facility] Floorperson/Techni garett ID = [id number] for Aleksandra Maloney POCT-GLUCOSE [id number] 12:33:00 Test Item Value Reference Range Interpretation Comments POC-GLUCOSE METER 260 mg/dL 70-110 H : TESTED A T [facility] [address] (BEAKER) (test code [address], = 1538) [facility] [address]: [facility] Floorperson/Techni garett ID = [id number] for Aleksandra Maloney [id number] 06:35:00 Test Item Value Reference Range Interpretation Comments Procalcitonin (test code = 0.57 ng/mL <0.05 H 23917-4) LISET (test code = LISET) SEPSIS RISK (ng/mL)Low: 0.05-0.50Intermedi ate: 0.51-2.00High: >=2.01 Lab Interpretation (test Abnormal code = 10499-0) [facility] 06:35:00 Test Item Value Reference Range Interpretation Comments PROCALCITONIN (BEAKER) (test code 0.57 ng/mL <0.05 H = 3036) SEPSIS RISK (ng/mL)Low: 0.05-0.50Intermediate: 0.51-2.00High: >=2.01POCT-GLUCOSE [id number] 06:24:00 Test Item Value Reference Range Interpretation Comments POC-GLUCOSE METER 141 mg/dL 70-110 H : Notified RN/MD: TESTED (BEAKER) (test code AT [place] [address] [address] = 1538) [facility] [address]: [facility] Floorperson/Techni garett ID = [id number] for Mary Dixon BASIC METABOLIC [id number] 05:45:00 Test Item Value Reference Range Interpretation Comments SODIUM (BEAKER) 135 meq/L 135-148 (test code = 381) POTASSIUM (BEAKER) 3.8 meq/L 3.6-5.5 (test code = 379) CHLORIDE (BEAKER) 97 meq/L 98-106 L (test code = 382) CO2 (BEAKER) (test 25 meq/L 20-29 code = 355) BLOOD UREA NITROGEN 25 mg/dL 10-26 (BEAKER) (test code = 354) CREATININE (BEAKER) 6.18 mg/dL 0.50-1.20 H (test code = 358) GLUCOSE RANDOM 136 mg/dL 70-110 H (BEAKER) (test code = 652) CALCIUM (BEAKER) 7.9 mg/dL 8.5-10.5 L (test code = 697) EGFR (BEAKER) (test 11 mL/min/1.73 ESTIMA SUSANA GFR IS code = 1092) sq m NOT ACCURATE CREATININE CLEARANCE IN PREDICTING GLOMERULAR FILTRATION RATE . ESTIMATED GFR I S NOT APPLICABLE FOR DIALYSIS PATIEN ERICK. [facility] ID - [id number] 05:36:00 Test Item Value Reference Range Interpretation Comments Triglycerides (test 413 mg/dL code = 2571-8) LISET (test code = LISET) TRIGLYCERIDE REFERENCE RANGELow Risk <150Borderline Risk 150-199High Risk 200-499Very High Risk >=500Operator ID - RESORIANOperator ID - RESORIANOperator ID - RESORIANOperator ID - RESORIAN [facility] 05:36:00 Test Item Value Reference Range Interpretation Comments TRIGLYCERIDES (LEYLA) (test code = 413 mg/dL 540) TRIGLYCERIDE REFERENCE RANGELow Risk <150Borderline Risk 150-199High Risk 200-499Very High Risk>=500Operator ID - RESORIANOperator ID - RESORIANOperator ID - RESORIANOperator ID - RESORIANCBC (Hemogram only) 2019-10-13 05:27:00 Test Item Value Reference Range Interpretation Comments WBC (test code = 6690-2) 30.1 4.0- 10.0 K/L H RBC (test code = 789-8) 2.82 4.20- 5.80 M/L L MCHC (test code = 786-4) 31.8 32.0- 36.0 GM/DL L Hematocrit (test code = 4544-3) 23.6 % 36-50 L MCV (test code = 787-2) 83.7 fL 82-99 MCH (test code = 785-6) 26.6 pg 27-33 L RDW (test code = 788-0) 14.5 % 12-15 Platelets (test code = 777-3) 330 150- 430 K/CU MM MPV (test code = 56643-7) 10.3 fL 6-11.5 nRBC (test code = 413) 0 0- 0 /100 WBC Lab Interpretation (test code = Abnormal 32455-3) [facility]2019-10-13 05:27:00 Test Item Value Reference Range Interpretation Comments WHITE BLOOD CELL COUNT (BEAKER) 30.1 K/ L 4.0-10.0 H (test code = 775) RED BLOOD CELL COUNT (BEAKER) 2.82 M/ L 4.20-5.80 L (test code = 761) HEMOGLOBIN (BEAKER) (test code = 7.5 GM/DL 13.0-16.8 L 410) HEMATOCRIT (BEAKER) (test code = 23.6 % 36.0-50.0 L 411) MEAN CORPUSCULAR VOLUME (BEAKER) 83.7 fL 82.0-99.0 (test code = 753) MEAN CORPUSCULAR HEMOGLOBIN 26.6 pg 27.0-33.0 L (BEAKER) (test code = 751) MEAN CORPUSCULAR HEMOGLOBIN CONC 31.8 GM/DL 32.0-36.0 L (BEAKER) (test code = 752) RED CELL DISTRIBUTION WIDTH 14.5 % 12.0-15.0 (BEAKER) (test code = 412) PLATELET COUNT (BEAKER) (test 330 K/CU MM 150-430 code = 756) MEAN PLATELET VOLUME (BEAKER) 10.3 fL 6.0-11.5 (test code = 754) NUCLEATED RED BLOOD CELLS 0 /100 WBC 0-0 (BEAKER) (test code = 413) POCT-GLUCOSE [id number] 20:47:00 Test Item Value Reference Range Interpretation Comments POC-GLUCOSE METER 186 mg/dL 70-110 H : Notified RN/MD: TESTED (BEAKER) (test code AT [facility] [address] = 1538) [facility] [address]: [facility] Floor[facility]/Techni garett ID = [id number] for Zack Miguelangelar POCT-GLUCOSE [id number] 16:44:00 Test Item Value Reference Range Interpretation Comments POC-GLUCOSE METER 190 mg/dL 70-110 H : TESTED A T [facility]17 [facility] (test code [facility] NT [facility], = 1538) [facility] [address]: [facility] Floorperson/Techni garett ID = [id number] for Emil Tucker POCT-GLUCOSE [id number] 12:08:00 Test Item Value Reference Range Interpretation Comments POC-GLUCOSE METER 194 mg/dL 70-110 H : TESTED A T [facility] (BEAKER) (test code SNOW [facility] NT [facility], = 1538) [place] [address]: [facility] Floor[facility]/Techni garett ID = [id number] for Emil Tucker [id number] 06:03:00 Test Item Value Reference Range Interpretation Comments LIPASE (BEAKER) (test code = 749) 100 U/L 6-51 H [facility] ID - [id number] 06:02:00 Test Item Value Reference Range Interpretation Comments Magnesium (test code = 1.7 mg/dL 1.5-3 23344-6) LISET (test code = LISET) [facility] ID - [id number] Lab Interpretation (test Normal code = 74140-4) [facility] [id number] 06:02:00 Test Item Value Reference Range Interpretation Comments POC-GLUCOSE METER 116 mg/dL 70-110 H : Notified RN/MD: TESTED (BEAKER) (test code AT [facility] [address] PO[address] = 1538) [place] [address]: [facility] Floorperson/Techni garett ID = [id number] for Mary Martinez [id number] 06:02:00 Test Item Value Reference Range Interpretation Comments MAGNESIUM (BEAKER) (test code = 1.7 mg/dL 1.5-3.0 627) [facility] ID - [id number] 05:54:00 Test Item Value Reference Range Interpretation Comments AMYLASE (BEAKER) (test code = 349) 75 U/L 30-110 [facility] ID - [id number] [id number] 20:49:00 Test Item Value Reference Range Interpretation Comments POC-GLUCOSE METER 189 mg/dL 70-110 H : Notified RN/MD: TESTED (BEAKER) (test code AT [facility] [address] = 1538) [place] [address]: [facility] Floorperson/Techni garett ID = [id number] for Mary Martinez POCT-GLUCOSE [id number] 17:10:00 Test Item Value Reference Range Interpretation Comments POC-GLUCOSE METER 117 mg/dL 70-110 H : TESTED A T [facility] (BEAKER) (test code [address], = 1538) [facility] [address]: [facility] Floorperson/Techni garett ID = [id number] for Aleksandra Maloney POCT-GLUCOSE [id number] 12:22:00 Test Item Value Reference Range Interpretation Comments POC-GLUCOSE METER 150 mg/dL 70-110 H : TESTED A T [facility] [address] (BEAKER) (test code [address], = 1538) [facility] [address]: [facility] Floorperson/Techni garett ID = [id number] for Aleksandra Maloney Manual [id number] 06:37:00 Test Item Value Reference Range Interpretation Comments % Neutros (manual) (test code = 75 % 1359) % Lymphs (manual) (test code = 14 % 1360) % Monos (manual) (test code = 9 % 1361) % Metamyelo (manual) (test code 1 % 0-0 H = 258) % Bands (manual) (test code = 1 % 0-10 1348) # Neutros (manual) (test code = 23.70 1.80- 8.00 K/L H 1365) # Lymphs (manual) (test code = 4.42 1.48- 4.50 K/L 1366) # Monos (manual) (test code = 2.84 0.00- 1.30 K/L H 1367) # Metamyelo (manual) (test code 0.32 0.00- 0.00 K/L H = 261) # Bands (manual) (test code = 0.3 0.0- 0.8 K/L 1349) Total Counted (test code = 1351) 100 Bands plus Segmented Neutrophils 24.02 (test code = 1352) Toxic Granulation (test code = Present 771) Large Platelet (test code = Present 2156) Giant Platelet (test code = 313) Present Anisocytosis (test code = 961) 1+ few Hypochromia (test code = 963) 2+ moderate Lab Interpretation (test code = Abnormal 06618-9) [facility] W/PLT COUNT & AUTO [id number] 06:37:00 Test Item Value Reference Range Interpretation Comments WHITE BLOOD CELL COUNT (BEAKER) 31.6 K/ L 4.0-10.0 H (test code = 775) RED BLOOD CELL COUNT (BEAKER) 3.07 M/ L 4.20-5.80 L (test code = 761) HEMOGLOBIN (BEAKER) (test code = 7.9 GM/DL 13.0-16.8 L 410) HEMATOCRIT (BEAKER) (test code = 25.8 % 36.0-50.0 L 411) MEAN CORPUSCULAR VOLUME (BEAKER) 84.0 fL 82.0-99.0 (test code = 753) MEAN CORPUSCULAR HEMOGLOBIN 25.7 pg 27.0-33.0 L (BEAKER) (test code = 751) MEAN CORPUSCULAR HEMOGLOBIN CONC 30.6 GM/DL 32.0-36.0 L (BEAKER) (test code = 752) RED CELL DISTRIBUTION WIDTH 15.0 % 12.0-15.0 (BEAKER) (test code = 412) PLATELET COUNT (BEAKER) (test 257 K/CU MM 150-430 code = 756) MEAN PLATELET VOLUME (BEAKER) 10.7 fL 6.0-11.5 (test code = 754) NUCLEATED RED BLOOD CELLS 0 /100 WBC 0-0 (BEAKER) (test code = 413) NEUTROPHILS RELATIVE PERCENT 75 % (BEAKER) (test code = 429) LYMPHOCYTES RELATIVE PERCENT 14 % (BEAKER) (test code = 430) MONOCYTES RELATIVE PERCENT 6 % (BEAKER) (test code = 431) EOSINOPHILS RELATIVE PERCENT 2 % (BEAKER) (test code = 432) BASOPHILS RELATIVE PERCENT 0 % (BEAKER) (test code = 437) NEUTROPHILS ABSOLUTE COUNT 23.54 K/ L 1.80-8.00 H (BEAKER) (test code = 670) LYMPHOCYTES ABSOLUTE COUNT 4.28 K/ L 1.48-4.50 (BEAKER) (test code = 414) MONOCYTES ABSOLUTE COUNT (BEAKER) 1.96 K/ L 0.00-1.30 H (test code = 415) EOSINOPHILS ABSOLUTE COUNT 0.68 K/ L 0.00-0.50 H (BEAKER) (test code = 416) BASOPHILS ABSOLUTE COUNT (BEAKER) 0.11 K/ L 0.00-0.20 (test code = 417) IMMATURE GRANULOCYTES-RELATIVE 3 % 0-0 H PERCENT (BEAKER) (test code = 2801) (MANUAL DIFFERENTIAL)2019-10-11 06:37:00 Test Item Value Reference Range Interpretation Comments NEUTROPHILS - REL (DIFF) (BEAKER) 75 % (test code = 1359) LYMPHOCYTES - REL (DIFF) (BEAKER) 14 % (test code = 1360) MONOCYTES - REL (DIFF) (BEAKER) 9 % (test code = 1361) METAMYELOCYTES-REL (DIFF) 1 % 0-0 H (BEAKER) (test code = 258) BANDS - REL (DIFF) (BEAKER) (test 1 % 0-10 code = 1348) NEUTROPHILS - ABS (DIFF) (BEAKER) 23.70 K/ L 1.80-8.00 H (test code = 1365) LYMPHOCYTES - ABS (DIFF) (BEAKER) 4.42 K/ L 1.48-4.50 (test code = 1366) MONOCYTES - ABS (DIFF) (BEAKER) 2.84 K/ L 0.00-1.30 H (test code = 1367) METAMYELOCTYES - ABS (DIFF) 0.32 K/ L 0.00-0.00 H (BEAKER) (test code = 261) BANDS-ABS (DIFF) (BEAKER) (test 0.3 K/ L 0.0-0.8 code = 1349) TOTAL COUNTED (BEAKER) (test code 100 = 1351) BANDS + SEGMENTED NEUTROPHILS 24.02 (BEAKER) (test code = 1352) TOXIC GRANULATION (BEAKER) (test Present code = 771) LARGE PLT(BEAKER) (test code = Present 2156) GIANT PLATELETS (BEAKER) (test Present code = 313) ANISOCYTOSIS (BEAKER) (test code 1+ few = 961) HYPOCHROMIA (BEAKER) (test code = 2+ moderate 963) [id number] 06:05:00 Test Item Value Reference Range Interpretation Comments LIPASE (BEAKER) (test code = 749) 105 U/L 6-51 H [facility] ID - ADMINCOMPREHENSIVE METABOLIC [id number] 06:05:00 Test Item Value Reference Range Interpretation Comments TOTAL PROTEIN 6.3 gm/dL 6.0-8.5 (BEAKER) (test code = 770) ALBUMIN (BEAKER) 2.8 g/dL 3.5-5.0 L (test code = 1145) ALKALINE PHOSPHATASE 129 U/L 30-115 H (BEAKER) (test code = 346) BILIRUBIN TOTAL 0.5 mg/dL 0.1-1.2 (BEAKER) (test code = 377) SODIUM (BEAKER) (test 137 meq/L 135-148 code = 381) POTASSIUM (BEAKER) 3.7 meq/L 3.6-5.5 (test code = 379) CHLORIDE (BEAKER) 98 meq/L 98-106 (test code = 382) CO2 (BEAKER) (test 25 meq/L 20-29 code = 355) BLOOD UREA NITROGEN 26 mg/dL 10-26 (BEAKER) (test code = 354) CREATININE (BEAKER) 6.80 mg/dL 0.50-1.20 H (test code = 358) GLUCOSE RANDOM 169 mg/dL 70-110 H (BEAKER) (test code = 652) CALCIUM (BEAKER) 8.1 mg/dL 8.5-10.5 L (test code = 697) AST (SGOT) (BEAKER) 26 U/L 5-40 (test code = 353) ALT (SGPT) (BEAKER) 10 U/L 5-50 (test code = 347) EGFR (BEAKER) (test 10 mL/min/1.73 ESTIMA SUSANA GFR IS code = 1092) sq m NOT ACCURATE CREATININE CLEARANCE IN PREDICTING GLOMERULAR FILTRATION RATE . ESTIMATED GFR I S NOT APPLICABLE FOR DIALYSIS PATIEN TS. [facility] ID - [id number] 06:03:00 Test Item Value Reference Range Interpretation Comments MAGNESIUM (BEAKER) (test code = 1.9 mg/dL 1.5-3.0 627) [facility] ID - [id number] 05:56:00 Test Item Value Reference Range Interpretation Comments AMYLASE (BEAKER) (test code = 349) 80 U/L 30-110 [facility] Floor[facility] ID - ADMINPOCT-GLUCOSE [id number] 05:50:00 Test Item Value Reference Range Interpretation Comments POC-GLUCOSE METER 178 mg/dL 70-110 H : Notified RN/MD: TESTED (BEAKER) (test code AT [address] = 1538) [facility] [address]: [facility] Floorperson/Techni garett ID = [id number] for Mary Martinez POCT-GLUCOSE [id number] 20:45:00 Test Item Value Reference Range Interpretation Comments POC-GLUCOSE METER 138 mg/dL 70-110 H : Notified RN/MD: TESTED (BEAKER) (test code AT [facility] [address] = 1538) [facility] [address]: [facility] Floorperson/Techni garett ID = [id number] for Mary Martinez Hepatitis B core antibody, [id number] 19:23:00 Test Item Value Reference Range Interpretation Comments Hep B Core Total Ab (test Nonreactive Nonreactive code = 46285-7) LISET (test code = LISET) [facility] ID - DB Lab Interpretation (test Normal code = 91304-8) [facility], [id number] 19:23:00 Test Item Value Reference Range Interpretation Comments HEPATITIS B CORE TOTAL ANTIBODY Nonreactive Nonreactive (AKILAKER) (test code = 497) [facility] Floor[facility] ID - DBPOCT-GLUCOSE [id number] 16:27:00 Test Item Value Reference Range Interpretation Comments POC-GLUCOSE METER 161 mg/dL 70-110 H : TESTED A T [facility] (test code [facility] NT [facility], = 1538) [place] [address]: [facility] Floorperson/Techni garett ID = [id number] for Emil Tucker POCT-GLUCOSE [id number] 11:16:00 Test Item Value Reference Range Interpretation Comments POC-GLUCOSE METER 167 mg/dL 70-110 H : TESTED A T [facility]17 (BEAKER) (test code [facility] NT [facility], = 1538) [place] [address]: [facility] Floor[facility]/Techni garett ID = [id number] for Reynaldo Pedersenllian CBC W/PLT COUNT & AUTO [id number] 06:49:00 Test Item Value Reference Range Interpretation Comments WHITE BLOOD CELL COUNT (BEAKER) 30.5 K/ L 4.0-10.0 H (test code = 775) RED BLOOD CELL COUNT (BEAKER) 3.15 M/ L 4.20-5.80 L (test code = 761) HEMOGLOBIN (BEAKER) (test code = 8.2 GM/DL 13.0-16.8 L 410) HEMATOCRIT (BEAKER) (test code = 25.9 % 36.0-50.0 L 411) MEAN CORPUSCULAR VOLUME (BEAKER) 82.2 fL 82.0-99.0 (test code = 753) MEAN CORPUSCULAR HEMOGLOBIN 26.0 pg 27.0-33.0 L (BEAKER) (test code = 751) MEAN CORPUSCULAR HEMOGLOBIN CONC 31.7 GM/DL 32.0-36.0 L (BEAKER) (test code = 752) RED CELL DISTRIBUTION WIDTH 15.3 % 12.0-15.0 H (BEAKER) (test code = 412) PLATELET COUNT (BEAKER) (test 265 K/CU MM 150-430 code = 756) MEAN PLATELET VOLUME (BEAKER) 11.0 fL 6.0-11.5 (test code = 754) NUCLEATED RED BLOOD CELLS 0 /100 WBC 0-0 (BEAKER) (test code = 413) (MANUAL DIFFERENTIAL)2019-10-10 06:49:00 Test Item Value Reference Range Interpretation Comments NEUTROPHILS - REL (DIFF) (BEAKER) 75 % (test code = 1359) LYMPHOCYTES - REL (DIFF) (BEAKER) 14 % (test code = 1360) MONOCYTES - REL (DIFF) (BEAKER) 7 % (test code = 1361) BANDS - REL (DIFF) (BEAKER) (test 4 % 0-10 code = 1348) NEUTROPHILS - ABS (DIFF) (BEAKER) 22.88 K/ L 1.80-8.00 H (test code = 1365) LYMPHOCYTES - ABS (DIFF) (BEAKER) 4.27 K/ L 1.48-4.50 (test code = 1366) MONOCYTES - ABS (DIFF) (BEAKER) 2.14 K/ L 0.00-1.30 H (test code = 1367) BANDS-ABS (DIFF) (BEAKER) (test 1.2 K/ L 0.0-0.8 H code = 1349) TOTAL COUNTED (BEAKER) (test code 100 = 1351) BANDS + SEGMENTED NEUTROPHILS 24.10 (BEAKER) (test code = 1352) WBC MORPHOLOGY (BEAKER) (test code Normal = 487) PLT MORPHOLOGY (BEAKER) (test code Normal = 486) ANISOCYTOSIS (BEAKER) (test code = 1+ few 961) HYPOCHROMIA (BEAKER) (test code = 1+ few 963) COMPREHENSIVE METABOLIC [id number] 06:13:00 Test Item Value Reference Range Interpretation Comments TOTAL PROTEIN 6.2 gm/dL 6.0-8.5 (BEAKER) (test code = 770) ALBUMIN (BEAKER) 2.8 g/dL 3.5-5.0 L (test code = 1145) ALKALINE PHOSPHATASE 141 U/L 30-115 H (BEAKER) (test code = 346) BILIRUBIN TOTAL 0.5 mg/dL 0.1-1.2 (BEAKER) (test code = 377) SODIUM (BEAKER) (test 138 meq/L 135-148 code = 381) POTASSIUM (BEAKER) 3.7 meq/L 3.6-5.5 (test code = 379) CHLORIDE (BEAKER) 96 meq/L 98-106 L (test code = 382) CO2 (BEAKER) (test 28 meq/L 20-29 code = 355) BLOOD UREA NITROGEN 20 mg/dL 10-26 (BEAKER) (test code = 354) CREATININE (BEAKER) 5.31 mg/dL 0.50-1.20 H (test code = 358) GLUCOSE RANDOM 172 mg/dL 70-110 H (BEAKER) (test code = 652) CALCIUM (BEAKER) 8.1 mg/dL 8.5-10.5 L (test code = 697) AST (SGOT) (BEAKER) 24 U/L 5-40 (test code = 353) ALT (SGPT) (BEAKER) 9 U/L 5-50 (test code = 347) EGFR (BEAKER) (test 13 mL/min/1.73 ESTIMA SUSANA GFR IS code = 1092) sq m NOT ACCURATE CREATININE CLEARANCE IN PREDICTING GLOMERULAR FILTRATION RATE . ESTIMATED GFR I S NOT APPLICABLE FOR DIALYSIS PATIEN TS. [facility] ID - [id number] 06:13:00 Test Item Value Reference Range Interpretation Comments LIPASE (BEAKER) (test code = 749) 116 U/L 6-51 H [facility] ID - [id number] 06:12:00 Test Item Value Reference Range Interpretation Comments MAGNESIUM (BEAKER) (test code = 1.9 mg/dL 1.5-3.0 627) [facility] ID - [id number] 06:04:00 Test Item Value Reference Range Interpretation Comments AMYLASE (BEAKER) (test code = 349) 91 U/L 30-110 [facility] ID - [id number] 05:34:00 Test Item Value Reference Range Interpretation Comments POC-GLUCOSE METER 151 mg/dL 70-110 H : TESTED A T [address] (BEAKER) (test code [address], = 1538) [place] [id number]: [facility] Floor[facility]/Techni garett ID = [id number] for Puneet ph, Civy POCT-GLUCOSE [id number] 20:56:00 Test Item Value Reference Range Interpretation Comments POC-GLUCOSE METER 173 mg/dL 70-110 H : TESTED A T [address] (BEAKER) (test code [address], = 1538) [place] [id number]: [facility]/Techni garett ID = [id number] for Puneet ph, Civy POCT-GLUCOSE [id number] 16:53:00 Test Item Value Reference Range Interpretation Comments POC-GLUCOSE METER 267 mg/dL 70-110 H : TESTED A T [address] (BEAKER) (test code [address], = 1538) [place] [id number]: [facility]/Techni garett ID = [id number] for Emmy cedillo, Ayinor [id number] 15:35:00 Test Item Value Reference Range Interpretation Comments LIPASE (BEAKER) (test code = 749) 129 U/L 6-51 H [facility] ID - [id number] 15:26:00 Test Item Value Reference Range Interpretation Comments AMYLASE (BEAKER) (test code = 349) 85 U/L 30-110 [facility] ID - [id number], CHEST, WITH [id number] 14:52:00FINAL REPORT HISTORY : LEUKOCYTOSIS TECHNIQUE : Multiple axial images of thechest, abdomen and pelvis were performed with 5 mm slice thickness with the administration of IV contrast from the lung apices to the pubic symphysis. This exam was performed according to our departmental dose optimization program which includes automated exposure control, adjustment of the mA and/or kV according to patient size and/or use of iterative reconstructive technique. COMPARISON : None FINDINGS:Please note the examination is limited secondary to patient's body habitus extending out of the field of view. The thyroid and remaining visualized structures within the base the neck demonstrate no significant abnormalities. Right IJ dialysis catheter identified with distal tip terminating within the SVC. The thoracic aorta is normal course and caliber. The main pulmonary artery is normal in caliber. The heart is not enlarged. No abnormal pericardial fluid is present. There is no abnormal axillary, mediastinal, or hilar lymph node enlargement. The trachea and proximal airways are patent. There is mild elevation of the right hemidiaphragm. Scattered areas of subsegmental atelectasis noted within the right lower lobe. 5-6 mm groundglass nodule identified within the right upper lobe (axial image 27). Given small size, no follow-up examination is warranted. The lungs otherwise demonstrate no evidence for consolidation, pneumothorax, mass, suspicious nodule, or pleural effusion. The liver is mildly enlarged and appears diffusely decreased in attenuation suggestive of fatty infiltration. No focal hepatic abnormalities identified. The gallbladder is unremarkable. There is no evidence for radiopaque stones or biliary ductal dilatation. The stomach, spleen, and bilateral adrenal glands are unremarkable. The pancreas appears prominent with significant adjacent fat stranding identified within the upper abdomen concerning for acute pancreatitis.. No definite areas of abnormal enhancement are identified to suggest necrosis. No organized/drainable peripancreatic fluid collection is identified. Small amount of free fluid noted within the abdomen, most prominent along the right pericolic gutter, likely reactive. The kidneys are normal in size and location and enhance symmetrically. There is no evidence for nephrolithiasis or hydronephrosis. No ureteral dilatation or stone is appreciated. The urinary bladder and prostate demonstrate no significant abnormalities. The abdominal aorta is normal course and caliber. The IVC is grossly unremarkable. Please note evaluation of bowel is limited without the use of enteric contrast material. There is mild wall thickening of the duodenum which may be reactive. The remaining visualized loops of small and large bowel demonstrate no evidence of obstruction or inflammation. There is no intraperitoneal free air. No abnormally enlarged lymph nodes are identified within abdomen or pelvis. The osseous structures demonstrate no evidence for acute fracture or destructive process. The extraperitoneal soft tissues are unremarkable. Impression: Limited examination secondary to patient's body habitus demonstrates edematous appearing pancreas with adjacent fat stranding concerning for acute pancreatitis. No definite evidence of abnormal enhancement to suggest necrosis. No organized/drainable peripancreatic fluid collection identified. Small amount of free fluid noted within the abdomen and mild wall thickening noted of the duodenum, likely reactive. CT findingssuggestive of hepatic steatosis. Signed: Charly Fung MDReport Verified Date/Time: 10/09/2019 14:52:27 Reading Location: [facility] Radiology Reading Room CT, ABDOMEN 2019-10-09 14:52:00FINAL REPORT HISTORY : LEUKOCYTOSIS TECHNIQUE : Multiple axial images of thechest, abdomen and pelvis were performed with 5 mm slice thickness with the administration of IV contrast from the lung apices to the pubic symphysis. This exam was performed according to our departmental dose optimization program which includes automated exposure control, adjustment of the mA and/or kV according to patient size and/or use of iterative reconstructive technique. COMPARISON : None FINDINGS:Please note the examination is limited secondary to patient's body habitus extending out of the field of view. The thyroid and remaining visualized structures within the base the neck demonstrate no significant abnormalities. Right IJ dialysis catheter identified with distal tip terminating within the SVC. The thoracic aorta is normal course and caliber. The main pulmonary artery is normal in caliber. The heart is not enlarged. No abnormal pericardial fluid is present. There is no abnormal axillary, mediastinal, or hilar lymph node enlargement. The trachea and proximal airways are patent. There is mild elevation of the right hemidiaphragm. Scattered areas of subsegmental atelectasis noted within the right lower lobe. 5-6 mm groundglass nodule identified within the right upper lobe (axial image 27). Given small size, no follow-up examination is warranted. The lungs otherwise demonstrate no evidence for consolidation, pneumothorax, mass, suspicious nodule, or pleural effusion. The liver is mildly enlarged and appears diffusely decreased in attenuation suggestive of fatty infiltration. No focal hepatic abnormalities identified. The gallbladder is unremarkable. There is no evidence for radiopaque stones or biliary ductal dilatation. The stomach, spleen, and bilateral adrenal glands are unremarkable. The pancreas appears prominent with significant adjacent fat stranding identified within the upper abdomen concerning for acute pancreatitis.. No definite areas of abnormal enhancement are identified to suggest necrosis. No organized/drainable peripancreatic fluid collection is identified. Small amount of free fluid noted within the abdomen, most prominent along the right pericolic gutter, likely reactive. The kidneys are normal in size and location and enhance symmetrically. There is no evidence for nephrolithiasis or hydronephrosis. No ureteral dilatation or stone is appreciated. The urinary bladder and prostate demonstrate no significant abnormalities. The abdominal aorta is normal course and caliber. The IVC is grossly unremarkable. Please note evaluation of bowel is limited without the use of enteric contrast material. There is mild wall thickening of the duodenum which may be reactive. The remaining visualized loops of small and large bowel demonstrate no evidence of obstruction or inflammation. There is no intraperitoneal free air. No abnormally enlarged lymph nodes are identified within abdomen or pelvis. The osseous structures demonstrate no evidence for acute fracture or destructive process. The extraperitoneal soft tissues are unremarkable. Impression: Limited examination secondary to patient's body habitus demonstrates edematous appearing pancreas with adjacent fat stranding concerning for acute pancreatitis. No definite evidence of abnormal enhancement to suggest necrosis. No organized/drainable peripancreatic fluid collection identified. Small amount of free fluid noted within the abdomen and mild wall thickening noted of the duodenum, likely reactive. CT findingssuggestive of hepatic steatosis. Signed: Charly uFng MDReport Verified Date/Time: 10/09/2019 14:52:27 Reading Location: [facility] Radiology Reading Room CT chest with IV [id number] 14:52:00Interface, External Ris In - 10/09/2019 2:54 PM CDTFINAL REPORT HISTORY : LEUKOCYTOSIS TECHNIQUE : Multiple axial images of the chest, abdomen and pelvis were performed with 5 mm slice thickness with the administration of IV contrast from the lung apices to the pubic symphysis. This exam was performed according to our departmental dose optimization program which includes automated exposure control, adjustment of the mA and/or kV according to patient size and/or use of iterative reconstructive technique. COMPARISON : None FINDINGS:Please note the examination is limited secondary to patient's body habitus extending out of the field of view. The thyroid and remaining visualized structures within the base the neck demonstrate no significant abnormalities. Right IJ dialysis catheter identified with distal tip terminating within the SVC. The thoracic aorta is normal course and caliber. The main pulmonary artery is normal in caliber. The heart is not enlarged. No abnormal pericardial fluid is present. There is no abnormal axillary, mediastinal, or hilar lymph node enlargement. The trachea and proximal airways are patent. There is mild elevation of the right hemidiaphragm. Sc attered areas of subsegmental atelectasis noted within the right lower lobe. 5-6 mm groundglass nodule identified within the right upper lobe (axial image 27). Given small size, no follow-up examination is warranted. The lungs otherwise demonstrate no evidence for consolidation, pneumothorax, mass, suspicious nodule, or pleural effusion. The liver is mildly enlarged and appears diffusely decreased inattenuation suggestive of fatty infiltration. No focal hepatic abnormalities identified. The gallbladder is unremarkable. There is no evidence for radiopaque stones or biliary ductal dilatation. The stomach, spleen, and bilateral adrenal glands are unremarkable. The pancreas appears prominent with significant adjacent fat stranding identified within the upper abdomen concerning for acute pancreatitis.. No definite areas of abnormal enhancement are identified to suggest necrosis. No organized/drainable peripancreatic fluid collection is identified. Small amount of free fluid noted within the abdomen, most prominent along the right pericolic gutter, likely reactive. The kidneys are normal in size and location and enhance symmetrically. There is no evidence for nephrolithiasis or hydronephrosis. No ureteral dilatation or stone is appreciated. The urinary bladder and prostate demonstrate no significant abnormalities. The abdominal aorta is normal course and caliber. The IVC is grossly unremarkable.Please note evaluation of bowel is limited without the use of enteric contrast material. There is mild wall thickening of the duodenum which may be reactive. The remaining visualized loops of small andlarge bowel demonstrate no evidence of obstruction or inflammation. There is no intraperitoneal freeair. No abnormally enlarged lymph nodes are identified within abdomen or pelvis. The osseous structures demonstrate no evidence for acute fracture or destructive process. The extraperitoneal soft tissues are unremarkable. Impression: Limited examination secondary to patient's body habitus demonstrates edematous appearing pancreas with adjacent fat stranding concerning for acute pancreatitis. No definite evidence of abnormal enhancement to suggest necrosis. No organized/drainable peripancreatic fluid collection identified. Small amount of free fluid noted within the abdomen and mild wall thickeningnoted of the duodenum, likely reactive. CT findings suggestive of hepatic steatosis. Signed: Charly Fung MDReport Verified Date/Time: 10/09/2019 14:52:27 Reading Location: [facility] [id number] 14:52:00Interface, External Ris In - 10/09/2019 2:54 PM CDTFINAL REPORT HISTORY : LEUKOCYTOSIS TECHNIQUE : Multiple axial images of the chest, abdomen and pelvis were performed with 5 mm slice thickness with the administration of IV contrast from the lung apices to the pubic symphysis. This exam was performed according to our departmental dose optimization program which includes autom ated exposure control, adjustment of the mA and/or kV according to patient size and/or use of iterative reconstructive technique. COMPARISON : None FINDINGS:Please note the examination is limited secondary to patient's body habitus extending out of the field of view. The thyroid and remaining visualized structures within the base the neck demonstrate no significant abnormalities. Right IJ dialysis catheter identified with distal tip terminating within the SVC. The thoracic aorta is normal course and caliber. The main pulmonary artery is normal in caliber. The heart is not enlarged. No abnormal pericardial fluid is present. There is no abnormal axillary, mediastinal, or hilar lymph node enlargement. The trachea and proximal airways are patent. There is mild elevation of the right hemidiaphragm. Scattered areas of subsegmental atelectasis noted within the right lower lobe. 5-6 mm groundglass nodule identified within the right upper lobe (axial image 27). Given small size, no follow-up examination is warranted. The lungs otherwise demonstrate no evidence for consolidation, pneumothorax, mass, suspicious nodule, or pleural effusion. The liver is mildly enlarged and appears diffusely decreased inattenuation suggestive of fatty infiltration. No focal hepatic abnormalities identified. The gallbladder is unremarkable. There is no evidence for radiopaque stones or biliary ductal dilatation. The stomach, spleen, and bilateral adrenal glands are unremarkable. The pancreas appears prominent with significant adjacent fat stranding identified within the upper abdomen concerning for acute pancreatitis. . No definite areas of abnormal enhancement are identified to suggest necrosis. No organized/drainable peripancreatic fluid collection is identified. Small amount of free fluid noted within the abdomen, most prominent along the right pericolic gutter, likely reactive. The kidneys are normal in size and location and enhance symmetrically. There is no evidence for nephrolithiasis or hydronephrosis. No ureteral dilatation or stone is appreciated. The urinary bladder and prostate demonstrate no significant abnormalities. The abdominal aorta is normal course and caliber. The IVC is grossly unremarkable.Please note evaluation of bowel is limited without the use of enteric contrast material. There is mild wall thickening of the duodenum which may be reactive. The remaining visualized loops of small andlarge bowel demonstrate no evidence of obstruction or inflammation. There is no intraperitoneal freeair. No abnormally enlarged lymph nodes are identified within abdomen or pelvis. The osseous structures demonstrate no evidence for acute fracture or destructive process. The extraperitoneal soft tissues are unremarkable. Impression: Limited examination secondary to patient's body habitus demonstrates edematous appearing pancreas with adjacent fat stranding concerning for acute pancreatitis. No definite evidence of abnormal enhancement to suggest necrosis. No organized/drainable peripancreatic fluid collection identified. Small amount of free fluid noted within the abdomen and mild wall thickeningnoted of the duodenum, likely reactive. CT findings suggestive of hepatic steatosis. Signed: Charly Fung MDReport Verified Date/Time: 10/09/2019 14:52:27 Reading Location: [facility] Radiology [facility] [id number] 11:32:00 Test Item Value Reference Range Interpretation Comments POC-GLUCOSE METER 293 mg/dL 70-110 H : TESTED A T [facility] 131 ([facility]) (test code [facility], = 1538) [facility] 77 [address]: [employer] Floorperson/Techni garett ID = [id number] for Emil Tucker POCT-GLUCOSE [id number] 06:30:00 Test Item Value Reference Range Interpretation Comments POC-GLUCOSE METER 229 mg/dL 70-110 H : Notified RN/MD: TESTED ([facility]) (test code AT [facility] [address] = 1538) [facility] [address]: [employer] Floorperson/Techni garett ID = [id number] for Mary Dixon CBC W/PLT COUNT & AUTO [id number] 06:15:00 Test Item Value Reference Range Interpretation Comments WHITE BLOOD CELL COUNT (BEAKER) 30.0 K/ L 4.0-10.0 H (test code = 775) RED BLOOD CELL COUNT (BEAKER) 3.26 M/ L 4.20-5.80 L (test code = 761) HEMOGLOBIN (BEAKER) (test code = 8.3 GM/DL 13.0-16.8 L 410) HEMATOCRIT (BEAKER) (test code = 26.3 % 36.0-50.0 L 411) MEAN CORPUSCULAR VOLUME (BEAKER) 80.7 fL 82.0-99.0 L (test code = 753) MEAN CORPUSCULAR HEMOGLOBIN 25.5 pg 27.0-33.0 L (BEAKER) (test code = 751) MEAN CORPUSCULAR HEMOGLOBIN CONC 31.6 GM/DL 32.0-36.0 L (BEAKER) (test code = 752) RED CELL DISTRIBUTION WIDTH 15.4 % 12.0-15.0 H (BEAKER) (test code = 412) PLATELET COUNT (BEAKER) (test 298 K/CU MM 150-430 code = 756) MEAN PLATELET VOLUME (BEAKER) 10.8 fL 6.0-11.5 (test code = 754) NUCLEATED RED BLOOD CELLS 0 /100 WBC 0-0 (BEAKER) (test code = 413) NEUTROPHILS RELATIVE PERCENT 68 % (BEAKER) (test code = 429) LYMPHOCYTES RELATIVE PERCENT 14 % (BEAKER) (test code = 430) MONOCYTES RELATIVE PERCENT 8 % (BEAKER) (test code = 431) EOSINOPHILS RELATIVE PERCENT 2 % (BEAKER) (test code = 432) BASOPHILS RELATIVE PERCENT 1 % (BEAKER) (test code = 437) NEUTROPHILS ABSOLUTE COUNT 20.45 K/ L 1.80-8.00 H (BEAKER) (test code = 670) LYMPHOCYTES ABSOLUTE COUNT 4.21 K/ L 1.48-4.50 (BEAKER) (test code = 414) MONOCYTES ABSOLUTE COUNT (BEAKER) 2.47 K/ L 0.00-1.30 H (test code = 415) EOSINOPHILS ABSOLUTE COUNT 0.62 K/ L 0.00-0.50 H (BEAKER) (test code = 416) BASOPHILS ABSOLUTE COUNT (BEAKER) 0.18 K/ L 0.00-0.20 (test code = 417) IMMATURE GRANULOCYTES-RELATIVE 7 % 0-0 H PERCENT (BEAKER) (test code = 2801) (MANUAL DIFFERENTIAL)2019-10-09 06:15:00 Test Item Value Reference Range Interpretation Comments NEUTROPHILS - REL (DIFF) (BEAKER) 75 % (test code = 1359) LYMPHOCYTES - REL (DIFF) (BEAKER) 14 % (test code = 1360) MONOCYTES - REL (DIFF) (BEAKER) 8 % (test code = 1361) METAMYELOCYTES-REL (DIFF) 2 % 0-0 H (BEAKER) (test code = 258) BANDS - REL (DIFF) (BEAKER) (test 1 % 0-10 code = 1348) NEUTROPHILS - ABS (DIFF) (BEAKER) 22.50 K/ L 1.80-8.00 H (test code = 1365) LYMPHOCYTES - ABS (DIFF) (BEAKER) 4.20 K/ L 1.48-4.50 (test code = 1366) MONOCYTES - ABS (DIFF) (BEAKER) 2.40 K/ L 0.00-1.30 H (test code = 1367) METAMYELOCTYES - ABS (DIFF) 0.60 K/ L 0.00-0.00 H (BEAKER) (test code = 261) BANDS-ABS (DIFF) (BEAKER) (test 0.3 K/ L 0.0-0.8 code = 1349) TOTAL COUNTED (BEAKER) (test code 100 = 1351) BANDS + SEGMENTED NEUTROPHILS 22.80 (BEAKER) (test code = 1352) TOXIC GRANULATION (BEAKER) (test Present code = 771) LARGE PLT(BEAKER) (test code = Present 2156) ANISOCYTOSIS (BEAKER) (test code 1+ few = 961) HYPOCHROMIA (BEAKER) (test code = 2+ moderate 963) MICROCYTES (BEAKER) (test code = 1+ few 965) POLYCHROMATOPHILLIC RBCS(BEAKER) 1+ few (test code = 478) STOMATOCYTES (BEAKER) (test code 1+ few = 479) COMPREHENSIVE METABOLIC [id number] 05:54:00 Test Item Value Reference Range Interpretation Comments TOTAL PROTEIN 6.0 gm/dL 6.0-8.5 (BEAKER) (test code = 770) ALBUMIN (BEAKER) 2.7 g/dL 3.5-5.0 L (test code = 1145) ALKALINE PHOSPHATASE 129 U/L 30-115 H (BEAKER) (test code = 346) BILIRUBIN TOTAL 0.5 mg/dL 0.1-1.2 (BEAKER) (test code = 377) SODIUM (BEAKER) (test 136 meq/L 135-148 code = 381) POTASSIUM (BEAKER) 3.2 meq/L 3.6-5.5 L (test code = 379) CHLORIDE (BEAKER) 96 meq/L 98-106 L (test code = 382) CO2 (BEAKER) (test 24 meq/L 20-29 code = 355) BLOOD UREA NITROGEN 38 mg/dL 10-26 H (BEAKER) (test code = 354) CREATININE (BEAKER) 7.11 mg/dL 0.50-1.20 H (test code = 358) GLUCOSE RANDOM 234 mg/dL 70-110 H (BEAKER) (test code = 652) CALCIUM (BEAKER) 8.1 mg/dL 8.5-10.5 L (test code = 697) AST (SGOT) (BEAKER) 22 U/L 5-40 (test code = 353) ALT (SGPT) (BEAKER) 10 U/L 5-50 (test code = 347) EGFR (BEAKER) (test 9 mL/min/1.73 ESTIMAT ED GFR IS code = 1092) sq m NOT ACCURATE CREATININE CLEARANCE IN PREDICTING GLOMERULAR FILTRATION RATE . ESTIMATED GFR I S NOT APPLICABLE FOR DIALYSIS PATIEN TS. [employer] ID - MOJGAN-GLUCOSE [id number] 21:11:00 Test Item Value Reference Range Interpretation Comments POC-GLUCOSE METER 236 mg/dL 70-110 H : TESTED A T [facility] [address] (BEAKER) (test code [facility] [address], = 1538) [facility] [place] [address]: [employer] Floorperson/Techni garett ID = [id number] for Tanmay Vicky stoll Clostridium difficile GDH [id number] 19:12:00 Test Item Value Reference Range Interpretation Comments C. Difficle Toxin Negative Negative (test code = 2298317595) C. Difficile GDH Negative Negative No indicati on of Antigen (test code = Clostri dium 3176666615) difficile infection and n o colonization. Discontinue enteric isolati on and therapy. LISET (test code = Testing performed LISET) by [employer] Rapid Cassette Assay. For GDH, published sensitivity of the assay is 98.7% compared to cytotoxicity testing. For Toxin AB, published sensitivity is 87.8% and specificity 99.4% compared to cytotoxicity testing.Verificati on of kit performance was done by the [facility] Microbiology Lab prior to clinical use. Lab Interpretation Normal (test code = 29962-0) [facility] [id number] 19:12:00 Test Item Value Reference Range Interpretation Comments CDT TOXIN (test code Negative Negative = 5635178960) CDT GDH ANTIGEN (test Negative Negative No ind ication of code = 9419165828) Clostridi um difficile infection and n o colonization. Discontinue ent carmen isolation and t herapy. Testing performed by [employer] Rapid Cassette Assay. For GDH, published sensitivity of the assay is 98.7% compared to cytotoxicity testing. For Toxin AB, published sensitivity is 87.8% and specificity 99.4% compared to cytotoxicity testing.Verification of kit performance was done by the [facility] Microbiology Lab prior to clinical use.Urinalysis Microscopic [id number] 17:16:00 Test Item Value Reference Range Interpretation Comments RBC, UA (test code = 799-7) 5-10 /HPF WBC, UA (test code = 98178-0) 5-10 /HPF Bacteria, UA (test code = 46240-6) Rare SQUAMOUS EPITHELIAL (test code = 5-10 /HPF 50597-2) Amorphous Crystals (test code = Moderate 30752-3) Yeast (test code = 61033-4) Few [facility] [id number] 17:16:00 Test Item Value Reference Range Interpretation Comments RBC UA-MANUAL (BEAKER) (test code = 5-10 /HPF 1659) WBC UA-MANUAL (BEAKER) (test code = 5-10 /HPF 1661) BACTERIA (BEAKER) (test code = 517) Rare SQUAMOUS EPITHELIAL MANUAL (BEAKER) 5-10 /HPF (test code = 1663) AMORPHOUS CRYSTALS (BEAKER) (test Moderate code = 1584) YEAST (BEAKER) (test code = 1585) Few C-Reactive [id number] 17:10:00 Test Item Value Reference Range Interpretation Comments CRP (test code = 676) 20.64 mg/dL 0-0.5 H LISET (test code = LISET) [employer] ID - [id number] Lab Interpretation (test Abnormal code = 97934-3) [facility] [id number] 17:10:00 Test Item Value Reference Range Interpretation Comments C-REACTIVE PROTEIN (BEAKER) (test 20.64 mg/dL 0.00-0.50 H code = 676) [employer] Floor[employer] ID - JBERNUrinalysis with Microscopic If [id number] 16:58:00 Test Item Value Reference Range Interpretation Comments Color, UA (test code = 5778-6) Yellow Clarity, UA (test code = 5767-9) Clear Specific [place], UA (test code = 1.010 1.001-1.035 5811-5) pH, UA (test code = 5803-2) 5.5 5.0-8.0 Protein, UA (test code = 92824-2) 30 mg/dL Negative A Glucose, UA (test code = 365) Negative Negative Ketones, UA (test code = 2514-8) Negative Negative Bilirubin, UA (test code = 74009-6) Negative Negative Blood, UA (test code = 31113-5) Small Negative A Nitrite, UA (test code = 5802-4) Negative Negative Leukocytes, UA (test code = 5799-2) Negative Negative Urobilinogen, UA (test code = 0.2 mg/dL 0.2-1 80408-3) Specimen Source (test code = 2795) Lab Interpretation (test code = Abnormal 90499-7) [facility] MICROSCOPIC IF [id number] 16:58:00 Test Item Value Reference Range Interpretation Comments COLOR (BEAKER) (test code = 470) Yellow CLARITY (BEAKER) (test code = 469) Clear SPECIFIC GRAVITY UA (BEAKER) (test 1.010 1.001-1.035 code = 468) PH UA (BEAKER) (test code = 467) 5.5 5.0-8.0 PROTEIN UA (BEAKER) (test code = 30 mg/dL Negative A 464) GLUCOSE UA (BEAKER) (test code = Negative Negative 365) KETONES UA (BEAKER) (test code = Negative Negative 371) BILIRUBIN UA (BEAKER) (test code = Negative Negative 462) BLOOD UA (BEAKER) (test code = 461) Small Negative A NITRITE UA (BEAKER) (test code = Negative Negative 465) LEUKOCYTE ESTERASE UA (BEAKER) Negative Negative (test code = 466) UROBILINOGEN UA (BEAKER) (test code 0.2 mg/dL 0.2-1.0 = 463) SOURCE(BEAKER) (test code = 2795) POCT-GLUCOSE [id number] 16:42:00 Test Item Value Reference Range Interpretation Comments POC-GLUCOSE METER 249 mg/dL 70-110 H : Notified RN/MD: TESTED ([facility]) (test code AT [address] = 1538) [facility] [address]: [employer] Floorperson/Techni garett ID = [id number] for Crispin ramaKsenia RAD, CHEST, 1 VIEW, NON [id number] 15:04:00Reason for exam:- >PNEUMONIAShould this be performed at the bedside?->YesFINAL REPORT TECHNIQUE: Frontal view of the chest. INDICATION: PNEUMONIA COMPARISON:Three days prior IMPRESSION:Lines and hardware: Interval placement of a right neck vascular catheter with the tip overlying the high right atrium..Heart and mediastinum: Stable.Lungs and pleura: Low right lung volume. Stable right infrahilar atelectasis/opacity. No pleural effusion. No pneumothorax.Soft tissues and bones: No acute abnormality. Signed: Immanuel Quinones MDReport Verified Date/Time:10/08/2019 15:04:41 Reading Location: [facility] Radiology Reading Room POCT-GLUCOSE [id number] 11:26:00 Test Item Value Reference Range Interpretation Comments POC-GLUCOSE METER 277 mg/dL 70-110 H : Notified RN/MD: TESTED (BEAKER) (test code AT [facility] [address] = 1538) [facility], [facility] [address]: [employer] Floorperson/Techni garett ID = [id number] for Ksenia German [id number] 09:40:00 Test Item Value Reference Range Interpretation Comments TRIGLYCERIDES (BEAKER) (test code = 434 mg/dL 540) TRIGLYCERIDE REFERENCE RANGELow Risk <150Borderline Risk 150-199High Risk 200-499Very High Risk>=500Operator ID - [id number] W/PLT COUNT & AUTO [id number] 06:54:00 Test Item Value Reference Range Interpretation Comments WHITE BLOOD CELL COUNT (BEAKER) 25.6 K/ L 4.0-10.0 H (test code = 775) RED BLOOD CELL COUNT (BEAKER) 3.36 M/ L 4.20-5.80 L (test code = 761) HEMOGLOBIN (BEAKER) (test code = 8.7 GM/DL 13.0-16.8 L 410) HEMATOCRIT (BEAKER) (test code = 27.3 % 36.0-50.0 L 411) MEAN CORPUSCULAR VOLUME (BEAKER) 81.3 fL 82.0-99.0 L (test code = 753) MEAN CORPUSCULAR HEMOGLOBIN 25.9 pg 27.0-33.0 L (BEAKER) (test code = 751) MEAN CORPUSCULAR HEMOGLOBIN CONC 31.9 GM/DL 32.0-36.0 L (BEAKER) (test code = 752) RED CELL DISTRIBUTION WIDTH 15.5 % 12.0-15.0 H (BEAKER) (test code = 412) PLATELET COUNT (BEAKER) (test 276 K/CU MM 150-430 code = 756) MEAN PLATELET VOLUME (BEAKER) 10.8 fL 6.0-11.5 (test code = 754) NUCLEATED RED BLOOD CELLS 0 /100 WBC 0-0 (BEAKER) (test code = 413) NEUTROPHILS RELATIVE PERCENT 64 % (BEAKER) (test code = 429) LYMPHOCYTES RELATIVE PERCENT 15 % (BEAKER) (test code = 430) MONOCYTES RELATIVE PERCENT 10 % (BEAKER) (test code = 431) EOSINOPHILS RELATIVE PERCENT 2 % (BEAKER) (test code = 432) BASOPHILS RELATIVE PERCENT 1 % (BEAKER) (test code = 437) NEUTROPHILS ABSOLUTE COUNT 16.47 K/ L 1.80-8.00 H (BEAKER) (test code = 670) LYMPHOCYTES ABSOLUTE COUNT 3.83 K/ L 1.48-4.50 (BEAKER) (test code = 414) MONOCYTES ABSOLUTE COUNT (BEAKER) 2.42 K/ L 0.00-1.30 H (test code = 415) EOSINOPHILS ABSOLUTE COUNT 0.44 K/ L 0.00-0.50 (BEAKER) (test code = 416) BASOPHILS ABSOLUTE COUNT (BEAKER) 0.12 K/ L 0.00-0.20 (test code = 417) IMMATURE GRANULOCYTES-RELATIVE 9 % 0-0 H PERCENT (BEAKER) (test code = 2801) (MANUAL DIFFERENTIAL)2019-10-08 06:54:00 Test Item Value Reference Range Interpretation Comments NEUTROPHILS - REL (DIFF) (BEAKER) 69 % (test code = 1359) LYMPHOCYTES - REL (DIFF) (BEAKER) 13 % (test code = 1360) MONOCYTES - REL (DIFF) (BEAKER) 8 % (test code = 1361) METAMYELOCYTES-REL (DIFF) (BEAKER) 9 % 0-0 H (test code = 258) PROMYELOCYTES-REL (DIFF) (BEAKER) 1 % 0-0 H (test code = 259) NEUTROPHILS - ABS (DIFF) (BEAKER) 17.66 K/ L 1.80-8.00 H (test code = 1365) LYMPHOCYTES - ABS (DIFF) (BEAKER) 3.33 K/ L 1.48-4.50 (test code = 1366) MONOCYTES - ABS (DIFF) (BEAKER) 2.05 K/ L 0.00-1.30 H (test code = 1367) METAMYELOCTYES - ABS (DIFF) 2.30 K/ L 0.00-0.00 H (BEAKER) (test code = 261) PROMYELOCYTES - ABS (DIFF) 0.26 K/ L 0.00-0.00 H (BEAKER) (test code = 262) TOTAL COUNTED (BEAKER) (test code 100 = 1351) TOXIC GRANULATION (BEAKER) (test Present code = 771) LARGE PLT(BEAKER) (test code = Present 2156) GIANT PLATELETS (BEAKER) (test Present code = 313) ANISOCYTOSIS (BEAKER) (test code = 1+ few 961) HYPOCHROMIA (BEAKER) (test code = 1+ few 963) MICROCYTES (BEAKER) (test code = 1+ few 965) BASIC METABOLIC [id number] 06:24:00 Test Item Value Reference Range Interpretation Comments SODIUM (BEAKER) 137 meq/L 135-148 (test code = 381) POTASSIUM (BEAKER) 3.3 meq/L 3.6-5.5 L (test code = 379) CHLORIDE (BEAKER) 95 meq/L 98-106 L (test code = 382) CO2 (BEAKER) (test 27 meq/L 20-29 code = 355) BLOOD UREA NITROGEN 28 mg/dL 10-26 H (BEAKER) (test code = 354) CREATININE (BEAKER) 5.70 mg/dL 0.50-1.20 H (test code = 358) GLUCOSE RANDOM 225 mg/dL 70-110 H (BEAKER) (test code = 652) CALCIUM (BEAKER) 8.0 mg/dL 8.5-10.5 L (test code = 697) EGFR (BEAKER) (test 12 mL/min/1.73 ESTIMA SUSANA GFR IS code = 1092) sq m NOT ACCURATE CREATININE CLEARANCE IN PREDICTING GLOMERULAR FILTRATION RATE . ESTIMATED GFR I S NOT APPLICABLE FOR DIALYSIS PATIJC TS. [facility] ID - [id number] 06:10:00 Test Item Value Reference Range Interpretation Comments POC-GLUCOSE METER 221 mg/dL 70-110 H : Notified RN/MD: TESTED (BEAKER) (test code AT [address] = 1538) [place] [address]: [facility] Floorperson/Techni garett ID = [id number] for Miguelangel Dixonar POCT-GLUCOSE [id number] 01:11:00 Test Item Value Reference Range Interpretation Comments POC-GLUCOSE METER 165 mg/dL 70-110 H : Notified RN/MD: TESTED (BEAKER) (test code AT [facility] [address] = 1538) [place] [id number]: [facility] Floorperson/Techni garett ID = [id number] for Miguelangel Dixonar POCT-GLUCOSE [id number] 21:25:00 Test Item Value Reference Range Interpretation Comments POC-GLUCOSE METER 221 mg/dL 70-110 H : Notified RN/MD: TESTED (BEAKER) (test code AT [facility] [address] = 1538) [facility] [id number]: [facility] Floorperson/Techni garett ID = [id number] for Mary Dixon POCT-GLUCOSE [id number] 17:01:00 Test Item Value Reference Range Interpretation Comments POC-GLUCOSE METER 277 mg/dL 70-110 H : TESTED A T [facility] [address] (BEAKER) (test code [facility], = 1538) [place] [id number]: [facility] Floorperson/Techni garett ID = [id number] for Natividad Gregory POCT-GLUCOSE [id number] 12:30:00 Test Item Value Reference Range Interpretation Comments POC-GLUCOSE METER 261 mg/dL 70-110 H : TESTED A T [facility] (BEAKER) (test code [facility] NT [facility], = 1538) [place] [id number]: [facility] Floorperson/Techni garett ID = [id number] for Natividad Gregory CBC W/PLT COUNT & AUTO [id number] 07:03:00 Test Item Value Reference Range Interpretation Comments WHITE BLOOD CELL COUNT (BEAKER) 20.3 K/ L 4.0-10.0 H (test code = 775) RED BLOOD CELL COUNT (BEAKER) 3.37 M/ L 4.20-5.80 L (test code = 761) HEMOGLOBIN (BEAKER) (test code = 8.5 GM/DL 13.0-16.8 L 410) HEMATOCRIT (BEAKER) (test code = 26.7 % 36.0-50.0 L 411) MEAN CORPUSCULAR VOLUME (BEAKER) 79.2 fL 82.0-99.0 L (test code = 753) MEAN CORPUSCULAR HEMOGLOBIN 25.2 pg 27.0-33.0 L (BEAKER) (test code = 751) MEAN CORPUSCULAR HEMOGLOBIN CONC 31.8 GM/DL 32.0-36.0 L (BEAKER) (test code = 752) RED CELL DISTRIBUTION WIDTH 15.9 % 12.0-15.0 H (BEAKER) (test code = 412) PLATELET COUNT (BEAKER) (test 266 K/CU MM 150-430 code = 756) MEAN PLATELET VOLUME (BEAKER) 11.2 fL 6.0-11.5 (test code = 754) NUCLEATED RED BLOOD CELLS 0 /100 WBC 0-0 (BEAKER) (test code = 413) (MANUAL DIFFERENTIAL)2019-10-07 07:03:00 Test Item Value Reference Range Interpretation Comments NEUTROPHILS - REL (DIFF) (BEAKER) 60 % (test code = 1359) LYMPHOCYTES - REL (DIFF) (BEAKER) 23 % (test code = 1360) MONOCYTES - REL (DIFF) (BEAKER) 17 % (test code = 1361) NEUTROPHILS - ABS (DIFF) (BEAKER) 12.18 K/ L 1.80-8.00 H (test code = 1365) LYMPHOCYTES - ABS (DIFF) (BEAKER) 4.67 K/ L 1.48-4.50 H (test code = 1366) MONOCYTES - ABS (DIFF) (BEAKER) 3.45 K/ L 0.00-1.30 H (test code = 1367) TOTAL COUNTED (BEAKER) (test code 100 = 1351) WBC MORPHOLOGY (BEAKER) (test code Normal = 487) PLT MORPHOLOGY (BEAKER) (test code Normal = 486) ANISOCYTOSIS (BEAKER) (test code = 1+ few 961) POCT-GLUCOSE [id number] 07:02:00 Test Item Value Reference Range Interpretation Comments POC-GLUCOSE METER 214 mg/dL 70-110 H : TESTED A T [facility] [address] (BEAKER) (test code [facility] [address], = 1538) [facility] [address]: [facility] Floorperson/Techni garett ID = [id number] for Nwdeanna anguianoelie Sarai COMPREHENSIVE METABOLIC [id number] 06:40:00 Test Item Value Reference Range Interpretation Comments TOTAL PROTEIN 5.9 gm/dL 6.0-8.5 L (BEAKER) (test code = 770) ALBUMIN (BEAKER) 2.6 g/dL 3.5-5.0 L (test code = 1145) ALKALINE PHOSPHATASE 128 U/L 30-115 H (BEAKER) (test code = 346) BILIRUBIN TOTAL 0.4 mg/dL 0.1-1.2 (BEAKER) (test code = 377) SODIUM (BEAKER) (test 136 meq/L 135-148 code = 381) POTASSIUM (BEAKER) 3.4 meq/L 3.6-5.5 L (test code = 379) CHLORIDE (BEAKER) 99 meq/L 98-106 (test code = 382) CO2 (BEAKER) (test 23 meq/L 20-29 code = 355) BLOOD UREA NITROGEN 44 mg/dL 10-26 H (BEAKER) (test code = 354) CREATININE (BEAKER) 6.79 mg/dL 0.50-1.20 H (test code = 358) GLUCOSE RANDOM 221 mg/dL 70-110 H (BEAKER) (test code = 652) CALCIUM (BEAKER) 7.7 mg/dL 8.5-10.5 L (test code = 697) AST (SGOT) (BEAKER) 28 U/L 5-40 (test code = 353) ALT (SGPT) (BEAKER) 14 U/L 5-50 (test code = 347) EGFR (BEAKER) (test 10 mL/min/1.73 ESTIMA SUSANA GFR IS code = 1092) sq m NOT ACCURATE CREATININE CLEARANCE IN PREDICTING GLOMERULAR FILTRATION RATE . ESTIMATED GFR I S NOT APPLICABLE FOR DIALYSIS PATIEN TS. [facility] ID - [id number] 06:26:00 Test Item Value Reference Range Interpretation Comments MAGNESIUM (BEAKER) (test code = 1.8 mg/dL 1.5-3.0 627) [facility] ID - [id number] 03:44:00 Test Item Value Reference Range Interpretation Comments POC-GLUCOSE METER 220 mg/dL 70-110 H : TESTED A T [facility] [address] (BEAKER) (test code [address], = 1538) [place] [address]: [facility] Floorperson/Techni garett ID = [id number] for Nwad iufu, Sarai POCT-GLUCOSE [id number] 03:36:00 Test Item Value Reference Range Interpretation Comments POC-GLUCOSE METER 247 mg/dL 70-110 H : TESTED A T [facility] [address] (BEAKER) (test code [address], = 1538) [place] [address]: [facility] Floorperson/Techni garett ID = [id number] for Nwad iufu, Asrai POCT-GLUCOSE [id number] 22:13:00 Test Item Value Reference Range Interpretation Comments POC-GLUCOSE METER 278 mg/dL 70-110 H : TESTED A T [facility] [address] (BEAKER) (test code [address], = 1538) [place] [address]: [facility] Floorperson/Techni garett ID = [id number] for Vicky Howard POCT-GLUCOSE [id number] 16:26:00 Test Item Value Reference Range Interpretation Comments POC-GLUCOSE METER 163 mg/dL 70-110 H : TESTED A T [facility] [address] (BEAKER) (test code [address], = 1538) [place] [address]: [facility] Floorperson/Techni garett ID = [id number] for Ali, Cammy Hepatitis B surface [id number] 12:34:00 Test Item Value Reference Range Interpretation Comments Hep B S Ab (test code = <8.0 <8.0 mIU/mL 15676-1) LISET (test code = LISET) [facility] ID - AARON C Lab Interpretation (test Normal code = 68886-7) [facility] [id number] 12:34:00 Test Item Value Reference Range Interpretation Comments HEPATITIS B SURFACE ANTIBODY < mIU/mL <8.0 (BEAKER) (test code = 647) [facility] ID - AARON CPOCT-GLUCOSE [id number] 12:26:00 Test Item Value Reference Range Interpretation Comments POC-GLUCOSE METER 113 mg/dL 70-110 H : TESTED A T [facility] [address] (BEAKER) (test code [address], = 1538) [place] [address]: [facility] Floorperson/Techni garett ID = [id number] for Ali, Cammy POCT-GLUCOSE [id number] 11:14:00 Test Item Value Reference Range Interpretation Comments POC-GLUCOSE METER 118 mg/dL 70-110 H : TESTED A T [facility] [address] (BEAKER) (test code [address], = 1538) [place] [address]: [facility] Floorperson/Techni garett ID = [id number] for Ali, Cammy POCT-GLUCOSE [id number] 10:09:00 Test Item Value Reference Range Interpretation Comments POC-GLUCOSE METER 137 mg/dL 70-110 H : TESTED A T [facility] [address] (BEAKER) (test code [address], = 1538) [place] [address]: [facility] Floorperson/Techni garett ID = [id number] for Ali, Cammy Ketone, [id number] 09:37:00 Test Item Value Reference Range Interpretation Comments Ketones, Blood (test code = 1103) 0.1 mmol/L <0.4 Lab Interpretation (test code = Normal 04056-0) [facility] [id number] 09:37:00 Test Item Value Reference Range Interpretation Comments KETONES, BLOOD (BEAKER) (test code 0.1 mmol/L <0.4 = 1103) POCT-GLUCOSE [id number] 09:12:00 Test Item Value Reference Range Interpretation Comments POC-GLUCOSE METER 142 mg/dL 70-110 H : TESTED A T [facility] [address] (BEAKER) (test code [address], = 1538) [place] [address]: [facility] Floorperson/Techni garett ID = [id number] for Ali, Cammy POCT-GLUCOSE [id number] 08:02:00 Test Item Value Reference Range Interpretation Comments POC-GLUCOSE METER 137 mg/dL 70-110 H : TESTED A T [facility] [address] (BEAKER) (test code [address], = 1538) [place] [address]: [facility] Floorperson/Techni garett ID = [id number] for Ali, Cammy POCT-GLUCOSE [id number] 06:49:00 Test Item Value Reference Range Interpretation Comments POC-GLUCOSE METER 150 mg/dL 70-110 H : TESTED A T [facility] [address] (BEAKER) (test code [address], = 1538) [place] [address]: [facility] Floorperson/Techni gartet ID = [id number] for Cord es, Alyssia POCT-GLUCOSE [id number] 05:51:00 Test Item Value Reference Range Interpretation Comments POC-GLUCOSE METER 153 mg/dL 70-110 H : TESTED A T [facility] [address] (BEAKER) (test code [address], = 1538) [place] [address]: [facility] Floorperson/Techni garett ID = [id number] for Cord es, Alyssia CBC W/PLT COUNT & AUTO [id number] 05:41:00 Test Item Value Reference Range Interpretation Comments WHITE BLOOD CELL COUNT (BEAKER) 17.3 K/ L 4.0-10.0 H (test code = 775) RED BLOOD CELL COUNT (BEAKER) 3.27 M/ L 4.20-5.80 L (test code = 761) HEMOGLOBIN (BEAKER) (test code = 8.3 GM/DL 13.0-16.8 L 410) HEMATOCRIT (BEAKER) (test code = 25.4 % 36.0-50.0 L 411) MEAN CORPUSCULAR VOLUME (BEAKER) 77.7 fL 82.0-99.0 L (test code = 753) MEAN CORPUSCULAR HEMOGLOBIN 25.4 pg 27.0-33.0 L (BEAKER) (test code = 751) MEAN CORPUSCULAR HEMOGLOBIN CONC 32.7 GM/DL 32.0-36.0 (BEAKER) (test code = 752) RED CELL DISTRIBUTION WIDTH 15.9 % 12.0-15.0 H (BEAKER) (test code = 412) PLATELET COUNT (BEAKER) (test 260 K/CU MM 150-430 code = 756) MEAN PLATELET VOLUME (BEAKER) 11.2 fL 6.0-11.5 (test code = 754) NUCLEATED RED BLOOD CELLS 0 /100 WBC 0-0 (BEAKER) (test code = 413) (MANUAL DIFFERENTIAL)2019-10-06 05:41:00 Test Item Value Reference Range Interpretation Comments NEUTROPHILS - REL (DIFF) (BEAKER) 56 % (test code = 1359) LYMPHOCYTES - REL (DIFF) (BEAKER) 21 % (test code = 1360) MONOCYTES - REL (DIFF) (BEAKER) 7 % (test code = 1361) METAMYELOCYTES-REL (DIFF) (BEAKER) 2 % 0-0 H (test code = 258) BANDS - REL (DIFF) (BEAKER) (test 14 % 0-10 H code = 1348) NEUTROPHILS - ABS (DIFF) (BEAKER) 9.69 K/ L 1.80-8.00 H (test code = 1365) LYMPHOCYTES - ABS (DIFF) (BEAKER) 3.63 K/ L 1.48-4.50 (test code = 1366) MONOCYTES - ABS (DIFF) (BEAKER) 1.21 K/ L 0.00-1.30 (test code = 1367) METAMYELOCTYES - ABS (DIFF) 0.35 K/ L 0.00-0.00 H (BEAKER) (test code = 261) BANDS-ABS (DIFF) (BEAKER) (test 2.4 K/ L 0.0-0.8 H code = 1349) TOTAL COUNTED (BEAKER) (test code = 100 1351) BANDS + SEGMENTED NEUTROPHILS 12.11 (BEAKER) (test code = 1352) WBC MORPHOLOGY (BEAKER) (test code Normal = 487) PLT MORPHOLOGY (BEAKER) (test code Normal = 486) ANISOCYTOSIS (BEAKER) (test code = 1+ few 961) HYPOCHROMIA (BEAKER) (test code = 1+ few 963) BASIC METABOLIC [id number] 05:26:00 Test Item Value Reference Range Interpretation Comments SODIUM (BEAKER) 140 meq/L 135-148 (test code = 381) POTASSIUM (BEAKER) 3.5 meq/L 3.6-5.5 L (test code = 379) CHLORIDE (BEAKER) 101 meq/L 98-106 (test code = 382) CO2 (BEAKER) (test 21 meq/L 20-29 code = 355) BLOOD UREA NITROGEN 48 mg/dL 10-26 H (BEAKER) (test code = 354) CREATININE (BEAKER) 7.63 mg/dL 0.50-1.20 H (test code = 358) GLUCOSE RANDOM 172 mg/dL 70-110 H (BEAKER) (test code = 652) CALCIUM (BEAKER) 7.7 mg/dL 8.5-10.5 L (test code = 697) EGFR (BEAKER) (test 9 mL/min/1.73 ESTIMAT ED GFR IS code = 1092) sq m NOT ACCURATE CREATININE CLEARANCE IN PREDICTING GLOMERULAR FILTRATION RATE . ESTIMATED GFR I S NOT APPLICABLE FOR DIALYSIS PATIEN TS. [facility] ID - [id number] 05:11:00 Test Item Value Reference Range Interpretation Comments Phosphorus (test code = 4.5 mg/dL 2.5-4.5 2777-1) LISET (test code = LISET) [facility] ID - [id number] Lab Interpretation (test Normal code = 72901-7) [id number] 05:11:00 Test Item Value Reference Range Interpretation Comments PHOSPHORUS (BEAKER) (test code = 4.5 mg/dL 2.5-4.5 604) [facility] ID - KENZIEATIFCT-GLUCOSE [id number] 04:43:00 Test Item Value Reference Range Interpretation Comments POC-GLUCOSE METER 151 mg/dL 70-110 H : TESTED A T [facility] [address] (BEAKER) (test code [address], = 1538) [place] [address]: [facility] Floorperson/Techni garett ID = [id number] for Cord es, Alyssia POCT-GLUCOSE [id number] 02:25:00 Test Item Value Reference Range Interpretation Comments POC-GLUCOSE METER 146 mg/dL 70-110 H : TESTED A T [facility] [address] (BEAKER) (test code [address], = 1538) [place] [address]: [facility] Floorperson/Techni garett ID = [id number] for Cord es, Alyssia POCT-GLUCOSE [id number] 01:14:00 Test Item Value Reference Range Interpretation Comments POC-GLUCOSE METER 137 mg/dL 70-110 H : TESTED A T [facility] [address] (BEAKER) (test code [address], = 1538) [place] [address]: [facility] Floorperson/Techni garett ID = [id number] for Cord es, Alyssia BASIC METABOLIC [id number] 00:49:00 Test Item Value Reference Range Interpretation Comments SODIUM (BEAKER) 139 meq/L 135-148 (test code = 381) POTASSIUM (BEAKER) 3.1 meq/L 3.6-5.5 L (test code = 379) CHLORIDE (BEAKER) 101 meq/L 98-106 (test code = 382) CO2 (BEAKER) (test 19 meq/L 20-29 L code = 355) BLOOD UREA NITROGEN 44 mg/dL 10-26 H (BEAKER) (test code = 354) CREATININE (BEAKER) 6.65 mg/dL 0.50-1.20 H (test code = 358) GLUCOSE RANDOM 135 mg/dL 70-110 H (BEAKER) (test code = 652) CALCIUM (BEAKER) 7.9 mg/dL 8.5-10.5 L (test code = 697) EGFR (BEAKER) (test 10 mL/min/1.73 ESTIMA SUSANA GFR IS code = 1092) sq m NOT ACCURATE CREATININE CLEARANCE IN PREDICTING GLOMERULAR FILTRATION RATE . ESTIMATED GFR I S NOT APPLICABLE FOR DIALYSIS PATIEN TS. [facility] Floor[facility] ID - AGONZALEZPOCT-GLUCOSE [id number] 00:10:00 Test Item Value Reference Range Interpretation Comments POC-GLUCOSE METER 139 mg/dL 70-110 H : TESTED A T [facility] [address] (BEAKER) (test code [address], = 1538) [place] [address]: [facility] Floorperson/Techni garett ID = [id number] for Cord es, Alyssia POCT-GLUCOSE [id number] 23:10:00 Test Item Value Reference Range Interpretation Comments POC-GLUCOSE METER 107 mg/dL 70-110 : TESTED A T [facility] [address] (BEAKER) (test code [address], = 1538) [place] [address]: [facility] Floorperson/Techni garett ID = [id number] for Cord es, Alyssia POCT-GLUCOSE [id number] 23:07:00 Test Item Value Reference Range Interpretation Comments POC-GLUCOSE METER 97 mg/dL 70-110 : TESTED A T [facility] [address] (BEAKER) (test code = [address], 15[address]) [place] [address]: [facility] Floor[facility]/Techni garett ID = [id number] for Cord es, Alyssia POCT-GLUCOSE [id number] 21:42:00 Test Item Value Reference Range Interpretation Comments POC-GLUCOSE METER 110 mg/dL 70-110 : TESTED A T [facility] [address] (BEAKER) (test code [address], = 1538) [place] [address]: [facility] Floor[facility]/Techni garett ID = [id number] for Cord es, Alyssia BASIC METABOLIC [id number] 20:59:00 Test Item Value Reference Range Interpretation Comments SODIUM (BEAKER) 139 meq/L 135-148 (test code = 381) POTASSIUM (BEAKER) 3.5 meq/L 3.6-5.5 L (test code = 379) CHLORIDE (BEAKER) 107 meq/L 98-106 H (test code = 382) CO2 (BEAKER) (test 14 meq/L 20-29 L code = 355) BLOOD UREA NITROGEN 68 mg/dL 10-26 H (BEAKER) (test code = 354) CREATININE (BEAKER) 9.57 mg/dL 0.50-1.20 H (test code = 358) GLUCOSE RANDOM 142 mg/dL 70-110 H (BEAKER) (test code = 652) CALCIUM (BEAKER) 7.4 mg/dL 8.5-10.5 L (test code = 697) EGFR (BEAKER) (test 7 mL/min/1.73 ESTIMAT ED GFR IS code = 1092) sq m NOT ACCURATE CREATININE CLEARANCE IN PREDICTING GLOMERULAR FILTRATION RATE . ESTIMATED GFR I S NOT APPLICABLE FOR DIALYSIS PATIEN TS. [facility] ID - KIMPOCT-GLUCOSE [id number] 20:06:00 Test Item Value Reference Range Interpretation Comments POC-GLUCOSE METER 127 mg/dL 70-110 H : [facility]ED A T [facility] (BEAKER) (test code [facility], = 1538) [place] [address]: [facility] Floorperson/Techni garett ID = [id number] for Mamie Dozier POCT-GLUCOSE [id number] 19:07:00 Test Item Value Reference Range Interpretation Comments POC-GLUCOSE METER 114 mg/dL 70-110 H : TESTED A T [facility] (BEAKER) (test code [facility], = 1538) [place] [address]: [facility] Floor[facility]/Techni garett ID = [id number] for Adeline Garnica POCT-GLUCOSE [id number] 18:24:00 Test Item Value Reference Range Interpretation Comments POC-GLUCOSE METER 111 mg/dL 70-110 H : Notified RN/MD: TESTED (BEAKER) (test code AT [facility] [place] = 1538) [place] [address]: [facility] [employer] Floorperson/Techni garett ID = [id number] for Christelle Walker BASIC METABOLIC [id number] 16:57:00 Test Item Value Reference Range Interpretation Comments SODIUM (BEAKER) 138 meq/L 135-148 (test code = 381) POTASSIUM (BEAKER) 3.9 meq/L 3.6-5.5 Specimen slightly (test code = 379) hemolyzed CHLORIDE (BEAKER) 107 meq/L 98-106 H (test code = 382) CO2 (BEAKER) (test 13 meq/L 20-29 L code = 355) BLOOD UREA NITROGEN 66 mg/dL 10-26 H (BEAKER) (test code = 354) CREATININE (BEAKER) 9.30 mg/dL 0.50-1.20 H Specimen slightly (test code = 358) hemolyzed GLUCOSE RANDOM 141 mg/dL 70-110 H (BEAKER) (test code = 652) CALCIUM (BEAKER) 7.3 mg/dL 8.5-10.5 L (test code = 697) EGFR (BEAKER) (test 7 mL/min/1.73 ESTIMAT ED GFR IS code = 1092) sq m NOT ACCURATE CREATININE CLEARANCE IN PREDICTING GLOMERULAR FILTRATION RATE . ESTIMATED GFR I S NOT APPLICABLE FOR DIALYSIS PATIEN TS. [employer] Floor[employer] ID - RICARDA, NON-TUNNELED DIALYSIS CATH, [id number] 16:27:00 Reason for exam:->Access for HDFINAL REPORT Non- tunneled Dialysis Catheter Insertion History: Renal failure, need for central venous access. Modality: Fluoroscopy and sonography. Sedation: None. Curriculum Assistant: Charly Fung MD. Deputy District Customs Director: None. Approach: Right internal jugular vein Estimated blood loss: < 5 cc. Specimen: None. Fluoroscopy Time: 0.3 min.Reference Air Kerma (Ka, r): 4 .0 mGy. Technique: Informed written consent was obtained. Discussion of risks, benefits, and alternatives were made with the patient. The patient expressed understanding and agreed to proceed. A universal timeout was performed prior to starting the procedure. All elements maximal sterile barrier technique was utilized for this procedure, including utilization of sterile scrub solution for skin prep, a large sterile sheet to cover the areas of the patient that were not prepped, and hand hygiene, mask, head covering, and sterile gown for performing radiologist and scrub technologist. Initial ultrasound images demonstrate patent and compressible right internal jugular, which was punctured under direct real-time ultrasound guidance with a micropuncture needle. An ultrasound image was saved to PACS. A microwire and sheath were placed. A 0.035 inch wire was placed through the sheath into the IVC. The tract was serially dilated. The 15 cm 13 [place] Trialysis catheter was placed over the wire with it s distal tip terminating at the cavoatrial junction. The ports were flushed and aspirated easily following placement. The lumens were locked with heparin. The catheter was sutured to the skin to secure its placement. Vital signs were monitored throughout the procedure by a nurse, and remained stable. The patient tolerated the procedure well and left the department in the same condition. Results: Spot radiograph of the chest demonstrates the new non-tunneled dialysis catheter to lie in the expected position with its tip overlying the cavoatrial junction. Impression: Successful, uncomplicated placement of aright internal jugular non-tunneled dialysis (Trialysis) catheter using sonographic and fluoroscopicguidance. The catheter is ready for immediate use. Signed: Charly Fung MDReport Verified Date/Time: 10/05/2019 16:27:11 Reading Location: [place] [address] Angio Body Reading Room IR non-tunneled dialysis catheter [id number] 16:27:00Interface, External Ris In - 10/05/2019 4:29 PM CDTFINAL REPORT Non-tunneledDialysis Catheter Insertion History: Renal failure, need for central venous access. Modality: Fluoroscopy and sonography. Sedation: None. Curriculum Assistant: Charly Fung MD. Deputy District Customs Director: None. Approach: Right internal jugular vein Estimated blood loss: < 5 cc. Specimen: None. Fluoroscopy Time: 0.3 min.Reference Air Kerma (Ka, r): 4.0 mGy. Technique: Informed written consent was obtained. Discussion of risks, benefits, and alternatives were made with the patient. The patient expressed understanding and agreed to proceed. A universal timeout was performed prior to starting the procedure. All elements maximal sterile barrier technique was utilized for this procedure, includingutilization of sterile scrub solution for skin prep, a large sterile sheet to cover the areas of the patient that were not prepped, and hand hygiene, mask, head covering, and sterile gown for performing radiologist and scrub technologist. Initial ultrasound images demonstrate patent and compressible right internal jugular, which was punctured under direct real-time ultrasound guidance with a micropunc ture needle. An ultrasound image was saved to PACS. A microwire and sheath were placed. A 0.035 inch wire was placed through the sheath into the IVC. The tract was serially dilated. The 15 cm 13 Faroese Trialysis catheter was placed over the wire with its distal tip terminating at the cavoatrial junction. The ports were flushed and aspirated easily following placement. The lumens were locked with heparin. The catheter was sutured to the skin to secure its placement. Vital signs were monitored throughout the procedure by a nurse, and remained stable. The patient tolerated the procedure well and left the department in the same condition. Results: Spot radiograph of the chest demonstrates the new non-tunneled dialysis catheter to lie in the expected position with its tip overlying the cavoatrial junction. Impression: Successful, uncomplicated placement of a right internal jugular non-tunneled dialysis (Trialysis) catheter using sonographic and fluoroscopic guidance. The catheter is ready for immediate use. Signed: Charly Fungort Verified Date/Time: 10/05/2019 16:27:11 Reading Location: [place] [address] Angio Body [facility] [id number] 15:56:00 Test Item Value Reference Range Interpretation Comments POC-GLUCOSE METER 133 mg/dL 70-110 H : TESTED A T [facility] [address] (BEAKER) (test code [address], = 1538) [facility] 77 478: [facility] [employer] Floorperson/Techni garett ID = [id number] for Odessa Castro Hepatitis B surface [id number] 14:18:00 Test Item Value Reference Range Interpretation Comments HBsAg Screen (test code = Nonreactive Nonreactive 5195-3) LISET (test code = LISET) [facility] [employer] ID - ADMIN Lab Interpretation (test Normal code = 15094-8) [facility] SUR[facility] [id number] 14:18:00 Test Item Value Reference Range Interpretation Comments HEPATITIS B SURFACE ANTIGEN (2) Nonreactive Nonreactive (BEAKER) (test code = 2585) [facility] ID - ADMINBASIC METABOLIC [id number] 14:02:00 Test Item Value Reference Range Interpretation Comments SODIUM (BEAKER) 138 meq/L 135-148 (test code = 381) POTASSIUM (BEAKER) 3.6 meq/L 3.6-5.5 (test code = 379) CHLORIDE (BEAKER) 107 meq/L 98-106 H (test code = 382) CO2 (BEAKER) (test 14 meq/L 20-29 L code = 355) BLOOD UREA NITROGEN 62 mg/dL 10-26 H (BEAKER) (test code = 354) CREATININE (BEAKER) 9.12 mg/dL 0.50-1.20 H (test code = 358) GLUCOSE RANDOM 169 mg/dL 70-110 H (BEAKER) (test code = 652) CALCIUM (BEAKER) 7.5 mg/dL 8.5-10.5 L (test code = 697) EGFR (BEAKER) (test 7 mL/min/1.73 ESTIMAT ED GFR IS code = 1092) sq m NOT ACCURATE CREATININE CLEARANCE IN PREDICTING GLOMERULAR FILTRATION RATE . ESTIMATED GFR I S NOT APPLICABLE FOR DIALYSIS PATIEN TS. [facility] [employer] [facility] ID - ADMINPOCT-GLUCOSE [id number] 12:14:00 Test Item Value Reference Range Interpretation Comments POC-GLUCOSE METER 137 mg/dL 70-110 H : TESTED A T [facility] 1317 ([facility]) (test code [facility] NT [facility], = 1538) [place] [address]: [facility] Floorperson/Techni garett ID = [id number] for Glen h, Lorita POCT-GLUCOSE [id number] 10:39:00 Test Item Value Reference Range Interpretation Comments POC-GLUCOSE METER 148 mg/dL 70-110 H : Notified RN/MD: TESTED ([facility]) (test code AT [facility] [address] = 1538) [place] [address]: [facility] Floorperson/Techni garett ID = [id number] for Glen h, Lorita POCT-GLUCOSE [id number] 09:46:00 Test Item Value Reference Range Interpretation Comments POC-GLUCOSE METER 148 mg/dL 70-110 H : Notified RN/MD: TESTED ([facility]) (test code AT [facility] [address] = 1538) [place] [id number]: [facility] Floorperson/Techni garett ID = [id number] for Glen h, Lorita Lipid [id number] 09:39:00 Test Item Value Reference Range Interpretation Comments Triglycerides (test 783 mg/dL code = 2571-8) Cholesterol (test code 230 mg/dL = 2093-3) HDL (test code = 9 mg/dL 2084-9) LISET (test code = LISET) Calculated LDL not valid if triglyceride >400 mg/dLTriglyceride Reference Range: Low Risk <150 Borderline 150-199 High Risk 200-499 Very High Risk >=500 Cholesterol Reference Range: Low Risk <200 Borderline 200-239 High Risk >240 HDL Cholesterol Reference Range: Low Risk >=60 High Risk <40 LDL Cholesterol Reference Range: Optimal <100 Near Optimal 100-129 Borderline 130-159 High 160-189 Very High >=190 [facility] ID - ADMINOperator ID - ADMINOperator ID - ADMINOperator ID - ADMINOperator ID - ADMINOperator ID - ADMIN [facility] HospitalLIPID [id number] 09:39:00 Test Item Value Reference Range Interpretation Comments TRIGLYCERIDES (BEAKER) (test code = 783 mg/dL 540) CHOLESTEROL (BEAKER) (test code = 230 mg/dL 631) HDL CHOLESTEROL (BEAKER) (test code 9 mg/dL = 976) Calculated LDL not valid if triglyceride >400 mg/dLTriglyceride Reference Range: Low Risk <150 Borderline 150-199 High Risk 200-499 Very High Risk >=500Cholesterol Reference Range: Low Risk <200 Borderline 200-239 High Risk >240HDL Cholesterol Reference Range: Low Risk >=60 High Risk <40LDL Cholesterol ReferenceRange: Optimal <100 Near Optimal 100-129 Borderline 130-159 High 160-189 Very High >=190 [facility] Floor[facility] ID - ADMINOperator ID - ADMINOperator ID - ADMINOperator ID - ADMINOperator ID - ADMINOperator ID - ADMINCBC W/PLT COUNT & AUTO [id number] 08:58:00 Test Item Value Reference Range Interpretation Comments WHITE BLOOD CELL COUNT (BEAKER) 14.9 K/ L 4.0-10.0 H (test code = 775) RED BLOOD CELL COUNT (BEAKER) 3.20 M/ L 4.20-5.80 L (test code = 761) HEMOGLOBIN (BEAKER) (test code = 8.2 GM/DL 13.0-16.8 L 410) HEMATOCRIT (BEAKER) (test code = 25.7 % 36.0-50.0 L 411) MEAN CORPUSCULAR VOLUME (BEAKER) 80.3 fL 82.0-99.0 L (test code = 753) MEAN CORPUSCULAR HEMOGLOBIN 25.6 pg 27.0-33.0 L (BEAKER) (test code = 751) MEAN CORPUSCULAR HEMOGLOBIN CONC 31.9 GM/DL 32.0-36.0 L (BEAKER) (test code = 752) RED CELL DISTRIBUTION WIDTH 16.2 % 12.0-15.0 H (BEAKER) (test code = 412) PLATELET COUNT (BEAKER) (test 228 K/CU MM 150-430 code = 756) MEAN PLATELET VOLUME (BEAKER) 11.7 fL 6.0-11.5 H (test code = 754) NUCLEATED RED BLOOD CELLS 0 /100 WBC 0-0 (BEAKER) (test code = 413) (MANUAL DIFFERENTIAL)2019-10-05 08:58:00 Test Item Value Reference Range Interpretation Comments NEUTROPHILS - REL (DIFF) (BEAKER) 59 % (test code = 1359) LYMPHOCYTES - REL (DIFF) (BEAKER) 14 % (test code = 1360) MONOCYTES - REL (DIFF) (BEAKER) 5 % (test code = 1361) EOSINOPHILS - REL (DIFF) (BEAKER) 1 % (test code = 1362) BANDS - REL (DIFF) (BEAKER) (test 21 % 0-10 H code = 1348) NEUTROPHILS - ABS (DIFF) (BEAKER) 8.79 K/ L 1.80-8.00 H (test code = 1365) LYMPHOCYTES - ABS (DIFF) (BEAKER) 2.09 K/ L 1.48-4.50 (test code = 1366) MONOCYTES - ABS (DIFF) (BEAKER) 0.75 K/ L 0.00-1.30 (test code = 1367) EOSINOPHILS - ABS (DIFF) (BEAKER) 0.15 K/ L 0.00-0.50 (test code = 1368) BANDS-ABS (DIFF) (BEAKER) (test 3.1 K/ L 0.0-0.8 H code = 1349) TOTAL COUNTED (BEAKER) (test code = 100 1351) BANDS + SEGMENTED NEUTROPHILS 11.92 (BEAKER) (test code = 1352) WBC MORPHOLOGY (BEAKER) (test code Normal = 487) PLT MORPHOLOGY (BEAKER) (test code Normal = 486) RBC MORPHOLOGY (BEAKER) (test code Normal = 762) [id number] 08:50:00 Test Item Value Reference Range Interpretation Comments Fibrinogen (test code = 960 mg/dL 200-400 H 3255-7) LISET (test code = LISET) Final Information (Auto Output) Lab Interpretation (test Abnormal code = 92761-1) [facility]IB[facility]INOGEN2020-[facility] 08:50:00 Test Item Value Reference Range Interpretation Comments FIBRINOGEN LEVEL (BEAKER) (test 960 mg/dL 200-400 H code = 658) Final Information (Auto Output)COMPREHENSIVE METABOLIC [id number] 08:50:00 Test Item Value Reference Range Interpretation Comments TOTAL PROTEIN 5.7 gm/dL 6.0-8.5 L (BEAKER) (test code = 770) ALBUMIN (BEAKER) 2.5 g/dL 3.5-5.0 L (test code = 1145) ALKALINE PHOSPHATASE 109 U/L 30-115 (BEAKER) (test code = 346) BILIRUBIN TOTAL 0.3 mg/dL 0.1-1.2 (BEAKER) (test code = 377) SODIUM (BEAKER) (test 137 meq/L 135-148 code = 381) POTASSIUM (BEAKER) 3.8 meq/L 3.6-5.5 (test code = 379) CHLORIDE (BEAKER) 107 meq/L 98-106 H (test code = 382) CO2 (BEAKER) (test 12 meq/L 20-29 L code = 355) BLOOD UREA NITROGEN 61 mg/dL 10-26 H (BEAKER) (test code = 354) CREATININE (BEAKER) 8.90 mg/dL 0.50-1.20 H (test code = 358) GLUCOSE RANDOM 216 mg/dL 70-110 H (BEAKER) (test code = 652) CALCIUM (BEAKER) 7.2 mg/dL 8.5-10.5 L (test code = 697) AST (SGOT) (BEAKER) 23 U/L 5-40 (test code = 353) ALT (SGPT) (BEAKER) 21 U/L 5-50 (test code = 347) EGFR (BEAKER) (test 7 mL/min/1.73 ESTIMAT ED GFR IS code = 1092) sq m NOT ACCURATE CREATININE CLEARANCE IN PREDICTING GLOMERULAR FILTRATION RATE . ESTIMATED GFR I S NOT APPLICABLE FOR DIALYSIS PATIEN TS. [facility] [employer] Floor[employer] ID - [id number] 08:43:00 Test Item Value Reference Range Interpretation Comments MAGNESIUM (BEAKER) (test code = 1.8 mg/dL 1.5-3.0 627) [facility] [employer] Floor[employer] ID - ADMINProthromin time/[id number] 08:41:00 Test Item Value Reference Range Interpretation Comments Protime (test code = 10.6 9.3- 12.0 sec 5902-2) INR (test code = 1.0 <=5.9 6301-6) LISET (test code = LISET) RECOMMENDED COUMADIN/WARFARIN INR THERAPY RANGESSTANDARD DOSE: 2.0 - 3.0 Includes: PROPHYLAXIS for venous thrombosis, systemic embolization; TREATMENT for venous thrombosis and/or pulmonary embolus.HIGH RISK: Target INR is 2.5-3.5 for patients with mechanical heart valves.Final Information (Auto Output)Final Information (Auto Output) Lab Interpretation Normal (test code = 76753-6) [facility]aPTT2020-08-[facility] 08:41:00 Test Item Value Reference Range Interpretation Comments PTT (test code = 30.2 23.0- 35.0 sec 84111-8) LISET (test code = LISET) Final Information (Auto Output) Lab Interpretation (test Normal code = 83901-0) [facility] HospitalPROTHROMBIN TIME/[id number] 08:41:00 Test Item Value Reference Range Interpretation Comments PROTIME (BEAKER) (test code = 759) 10.6 sec 9.3-12.0 INR (BEAKER) (test code = 370) 1.0 <=5.9 RECOMMENDED COUMADIN/WARFARIN INR THERAPY RANGESSTANDARD DOSE: 2.0 - 3.0 Includes: PROPHYLAXIS forvenous thrombosis, systemic embolization; TREATMENT for venous thrombosis and/or pulmonary embolus.HIGH RISK: Target INR is 2.5-3.5 for patients with mechanical heart valves.Final Information (Auto Output)Final Information (Auto Output)[id number] 08:41:00 Test Item Value Reference Range Interpretation Comments PARTIAL THROMBOPLASTIN TIME ([facility]) 30.2 sec 23.0-35.0 (test code = 760) Final Information (Auto Output)POCT-GLUCOSE [id number] 08:11:00 Test Item Value Reference Range Interpretation Comments POC-GLUCOSE METER 185 mg/dL 70-110 H : Notified RN/MD: TESTED ([facility]) (test code AT [facility] [address] = 1538) [place] [id number]: [facility] [employer] Floorperson/Techni garett ID = [id number] for Glen h, Lorita RAD, CHEST, 1 VIEW, NON [id number] 07:32:00Reason for exam:->PULM EDEMAShould this be performed at the bedside?->YesFINAL REPORT Chest, one view. HISTORY: PULM EDEMA COMPARISON: None IMPRESSION: Elevation of the right hemidiaphragm. Central pulmonary venous congestion. No pleural effusion orpneumothorax. The cardiac silhouette is likely magnified by technique. No acute bony abnormality. Signed: Tasneem Ruth MDRbenoitort Verified Date/Time: 10/05/2019 07:32:34 Reading Location: [facility] C0Y CT Body Reading Room -GLUCOSE [id number] 07:07:00 Test Item Value Reference Range Interpretation Comments POC-GLUCOSE METER 212 mg/dL 70-110 H : TESTED A T [facility] (test code [facility], = 1538) [place] [address]158: [facility] Floor[employer]/Techni garett ID = [id number] for Zave r, Zubeda POCT-GLUCOSE [id number] 06:11:00 Test Item Value Reference Range Interpretation Comments POC-GLUCOSE METER 221 mg/dL 70-110 H : TESTED A T [facility] (BEAKER) (test code [address] [facility], = 1538) [place] [address]: [facility] Floorperson/Techni garett ID = [id number] for Zave r, Zubeda Blood gas, [id number] 05:48:00 Test Item Value Reference Range Interpretation Comments pH, Arterial (test code = 7.24 7.35-7.45 L 4-1) pCO2, Arterial (test code = 23 35- 45 mmHg L 2018-8) pO2, Arterial (test code = 80 80- 90 mmHg 2703-7) O2 Sat, Arterial (test code = 94.2 % 96-97 L 2708-6) HCO3, Arterial (test code = 10 mmol/L 21-29 LL 1959-4) Base Excess, Arterial (test code -16.0 mmol/L -2-3 L = 1925-7) Patient Temperature (test code = 37.0 C 8310-5) FIO2 (test code = 1819) 21 % Lab Interpretation (test code = Abnormal 06875-9) [facility] HospitalBLOOD GAS, [id number] 05:48:00 Test Item Value Reference Range Interpretation Comments PH ARTERIAL (BEAKER) (test code 7.24 7.35-7.45 L = 383) PCO2 ARTERIAL (BEAKER) (test 23 mmHg 35-45 L code = 384) PO2 ARTERIAL (BEAKER) (test code 80 mmHg 80-90 = 385) O2 SATURATION ARTERIAL (BEAKER) 94.2 % 96.0-97.0 L (test code = 386) HCO3 ARTERIAL (BEAKER) (test 10 mmol/L 21-29 LL code = 388) BASE EXCESS ARTERIAL (BEAKER) -16.0 mmol/L -2.0-3.0 L (test code = 387) PATIENT TEMPERATURE (BEAKER) 37.0 C (test code = 1818) FIO2 (BEAKER) (test code = 1819) 21.0 % POCT-GLUCOSE [id number] 05:13:00 Test Item Value Reference Range Interpretation Comments POC-GLUCOSE METER 218 mg/dL 70-110 H : TESTED A T [facility] [address] (BEAKER) (test code [address], = 1538) [facility] 77 478: [facility] [employer] Floorperson/Techni garett ID = [id number] for Syed Luther webster POCT-GLUCOSE [id number] 04:10:00 Test Item Value Reference Range Interpretation Comments POC-GLUCOSE METER 207 mg/dL 70-110 H : TESTED A T [facility] [address] (BEAKER) (test code [address], = 1538) [place] [address]: [facility] [employer] Floorperson/Techni garett ID = [id number] for Zave rJohnda POCT-GLUCOSE [id number] 03:07:00 Test Item Value Reference Range Interpretation Comments POC-GLUCOSE METER 207 mg/dL 70-110 H : TESTED A T [facility] [address] (BEAKER) (test code [address], = 1538) [place] [address]: [facility] Floorperson/Techni garett ID = [id number] for Zave r, Gerryubeda POCT-GLUCOSE [id number] 02:17:00 Test Item Value Reference Range Interpretation Comments POC-GLUCOSE METER 194 mg/dL 70-110 H : TESTED A T [facility] [address] (BEAKER) (test code [address], = 1538) [place] [address]: [facility] Floorperson/Techni garett ID = [id number] for Zave r, Gerryubeda LIPID [id number] 01:17:00 Test Item Value Reference Range Interpretation Comments TRIGLYCERIDES (BEAKER) (test code = 916 mg/dL 540) CHOLESTEROL (BEAKER) (test code = 263 mg/dL 631) HDL CHOLESTEROL (BEAKER) (test code 10 mg/dL = 976) Calculated LDL not valid if triglyceride >400 mg/dLTriglyceride Reference Range: Low Risk <150 Borderline 150-199 High Risk 200-499 Very High Risk >=500Cholesterol Reference Range: Low Risk <200 Borderline 200-239 High Risk >240HDL Cholesterol Reference Range: Low Risk >=60 High Risk <40LDL Cholesterol ReferenceRange: Optimal <100 Near Optimal 100-129 Borderline 130-159 High 160-189 Very High >=190 [facility] [employer] Floor[employer] ID - okee48Gqecuurp ID - [id number] ID - [id number] METABOLIC PANEL 2019-10-05 01:17:00 Test Item Value Reference Range Interpretation Comments TOTAL PROTEIN 6.1 gm/dL 6.0-8.5 (BEAKER) (test code = 770) ALBUMIN (BEAKER) 2.7 g/dL 3.5-5.0 L (test code = 1145) ALKALINE PHOSPHATASE 110 U/L 30-115 (BEAKER) (test code = 346) BILIRUBIN TOTAL 0.4 mg/dL 0.1-1.2 (BEAKER) (test code = 377) SODIUM (BEAKER) (test 135 meq/L 135-148 code = 381) POTASSIUM (BEAKER) 4.7 meq/L 3.6-5.5 (test code = 379) CHLORIDE (BEAKER) 109 meq/L 98-106 H (test code = 382) CO2 (BEAKER) (test 12 meq/L 20-29 L code = 355) BLOOD UREA NITROGEN 55 mg/dL 10-26 H (BEAKER) (test code = 354) CREATININE (BEAKER) 8.25 mg/dL 0.50-1.20 H (test code = 358) GLUCOSE RANDOM 211 mg/dL 70-110 H (BEAKER) (test code = 652) CALCIUM (BEAKER) 7.1 mg/dL 8.5-10.5 L (test code = 697) AST (SGOT) (BEAKER) 27 U/L 5-40 (test code = 353) ALT (SGPT) (BEAKER) 25 U/L 5-50 (test code = 347) EGFR (BEAKER) (test 8 mL/min/1.73 ESTIMAT ED GFR IS code = 1092) sq m NOT ACCURATE CREATININE CLEARANCE IN PREDICTING GLOMERULAR FILTRATION RATE . ESTIMATED GFR I S NOT APPLICABLE FOR DIALYSIS PATIEN TS. [facility] [employer] Floor[facility] ID - [id number] [id number] 01:14:00 Test Item Value Reference Range Interpretation Comments POC-GLUCOSE METER 191 mg/dL 70-110 H : TESTED A T [facility] [address] (BEAKER) (test code [facility] [address], = 1538) [facility] [place] 77 [address]: [facility] Floorperson/Techni garett ID = [id number] for Luther Nevarez [id number] 01:07:00 Test Item Value Reference Range Interpretation Comments MAGNESIUM (BEAKER) (test code = 1.9 mg/dL 1.5-3.0 627) [facility] Floor[facility] ID - [id number]-[id number] 01:01:00 Test Item Value Reference Range Interpretation Comments Glucose (test code = 211 mg/dL 70-110 H 2345-7) LISET (test code = LISET) [facility] Floor[facility] ID - [id number] Lab Interpretation (test Abnormal code = 38769-5) [facility] 01:01:00 Test Item Value Reference Range Interpretation Comments GLUCOSE RANDOM (BEAKER) (test code 211 mg/dL 70-110 H = 652) [facility] ID - [id number] 00:54:00 Test Item Value Reference Range Interpretation Comments Hemoglobin A1C (test code 12.5 % 4.3-6.1 H = 4548-4) LISET (test code = LISET) [facility] Floor[facility] ID - [id number] Lab Interpretation (test Abnormal code = 29504-5) [facility]HEMOGLOBIN [id number] 00:54:00 Test Item Value Reference Range Interpretation Comments HEMOGLOBIN A1C (BEAKER) (test code = 12.5 % 4.3-6.1 H 368) [facility] Floor[facility] ID - [id number] W/PLT COUNT & AUTO [id number] 00:50:00 Test Item Value Reference Range Interpretation Comments WHITE BLOOD CELL COUNT 16.4 K/ L 4.0-10.0 H (BEAKER) (test code = 775) RED BLOOD CELL COUNT (BEAKER) 3.60 M/ L 4.20-5.80 L (test code = 761) HEMOGLOBIN (BEAKER) (test 9.3 GM/DL 13.0-16.8 L code = 410) HEMATOCRIT (BEAKER) (test 30.2 % 36.0-50.0 L code = 411) MEAN CORPUSCULAR VOLUME 83.9 fL 82.0-99.0 (BEAKER) (test code = 753) MEAN CORPUSCULAR HEMOGLOBIN 25.8 pg 27.0-33.0 L (BEAKER) (test code = 751) MEAN CORPUSCULAR HEMOGLOBIN 30.8 GM/DL 32.0-36.0 L CONC (BEAKER) (test code = 752) RED CELL DISTRIBUTION WIDTH 16.4 % 12.0-15.0 H (BEAKER) (test code = 412) PLATELET COUNT (BEAKER) (test 227 K/CU MM 150-430 No clot seen code = 756) MEAN PLATELET VOLUME (BEAKER) 11.6 fL 6.0-11.5 H (test code = 754) NUCLEATED RED BLOOD CELLS 0 /100 WBC 0-0 (BEAKER) (test code = 413) NEUTROPHILS RELATIVE PERCENT 73 % (BEAKER) (test code = 429) LYMPHOCYTES RELATIVE PERCENT 14 % (BEAKER) (test code = 430) MONOCYTES RELATIVE PERCENT 8 % (BEAKER) (test code = 431) EOSINOPHILS RELATIVE PERCENT 0 % (BEAKER) (test code = 432) BASOPHILS RELATIVE PERCENT 1 % (BEAKER) (test code = 437) NEUTROPHILS ABSOLUTE COUNT 11.93 K/ L 1.80-8.00 H (BEAKER) (test code = 670) LYMPHOCYTES ABSOLUTE COUNT 2.30 K/ L 1.48-4.50 (BEAKER) (test code = 414) MONOCYTES ABSOLUTE COUNT 1.31 K/ L 0.00-1.30 H (BEAKER) (test code = 415) EOSINOPHILS ABSOLUTE COUNT 0.06 K/ L 0.00-0.50 (BEAKER) (test code = 416) BASOPHILS ABSOLUTE COUNT 0.09 K/ L 0.00-0.20 (BEAKER) (test code = 417) IMMATURE 4 % 0-0 H GRANULOCYTES-RELATIVE PERCENT (BEAKER) (test code = 2801) POCT-GLUCOSE [id number] 00:08:00 Test Item Value Reference Range Interpretation Comments POC-GLUCOSE METER 181 mg/dL 70-110 H : TESTED A T [facility] (BEAKER) (test code [facility], = 1538) [place] [address]: [facility] Floorperson/Techni garett ID = [id number] for Mamie Dozier POCT-GLUCOSE [id number] 23:09:00 Test Item Value Reference Range Interpretation Comments POC-GLUCOSE METER 170 mg/dL 70-110 H : TESTED A T [facility] (BEAKER) (test code [facility] 1538[facility] [place] [address]: [facility] Floorperson/Techni garett ID = [id number] for John Nevarezda POCT-GLUCOSE [id number] 22:02:00 Test Item Value Reference Range Interpretation Comments POC-GLUCOSE METER 163 mg/dL 70-110 H : TESTED A T [facility] (BEAKER) [facility] [place] [address]: [facility] Floor[facility]/Techni garett ID = [id number] for Veronica Hall SARS-CoV2/RT-PCR ([facility])2019-10-02 10:35:00 Test Item Value Reference Range Interpretation Comments SARS-COV2/RT-PCR Negative Not Detected, (test code = Negative, See 91045-7) external report for linked test SARS-COV-2 [facility] PERFORMING LAB (test code = 19288-9) LISET (test code = Negative result for this LISET) test determines that SARS-CoV-2 RNA was not present in the specimen above the Limit of Detection (LOD). However, Negative results do not preclude SARS-CoV-2 infection and should not be used as the sole basis for treatment or patient management decisions. Negative results must be combined with clinical observations, patient history, and epidemiological information. A false negative result may occur if a specimen is improperly collected, transported or handled. A false negative result should be considered if patient's recent exposures or clinical presentation indicate that COVID-19 (SARS-CoV-2) is likely and diagnostic tests for other causes of illness are negative. Re-testing should be considered in cases of suspected [...] Food and Drug Administration (FDA) cleared or approved. This is a modified version of an approved [...] of the Act. Fact Sheet for Healthcare Providers:https://www.[employer]Vinveli/sites/default/f adan/product/documents/F act_Sheet_HC_Providers_L yky_WPKA-RvU-0.pdf Fact Sheet for Healthcare Patients:https://www.[employer].Vinveli/sites/default/fi les/product/documents/Fa ct_Sheet_Patients_Lyra_S ARS-CoV-2.pdf Performing Laboratory:[facility] [place] [address] [facility] ([facility])2019-10-02 10:35:00 Test Item Value Reference Range Interpretation Comments SARS-COV2/RT-PCR (test Negative Not Detected, Negative, code = 0288205) See external report for linked test SARS-COV-2 PERFORMING LAB [facility] (test code = 7871253) Negative result for this test determines that SARS-CoV-2 RNA was not present in the specimen above the Limit of Detection (LOD). However, Negative results do not preclude SARS-CoV-2 infection and should not be used as the sole basis for treatment or patient management decisions. Negative results mustbe combined with clinical observations, patient history, and epidemiological information. A false negative result may occur if a specimen is improperly collected, transported or handled. A false negative result should be considered if patient's recent exposures or clinical presentation indicate that COVID-19 (SARS-CoV-2) is likely and diagnostic tests for other causes of illness are negative. Re-testing should be considered in cases of suspected false negatives.The limit of detection for this assay is 800 copies/mL.This SARS CoV-2 test is a real-time RT-PCR test intended for the qualitative detection of nucleic acid from SARS-CoV-2 in a nasopharyngeal swab specimen collected from individuals suspected of COVID-19 by their healthcare provider.This test has not been Food and Drug Administration (FDA) cleared or approved. This is a modified version of an approved [...] is revoked under Section 564(g) of the Act.Fact Sheet for Healthcare Providers:https://www.[employer].com/sites/default/files/product/documents/Fact_Shee a_[place]_Ngpfhybzo_Ajgr_QSGT-XiW-2.pdfFact Sheet for Healthcare Patients:https://www.[employer].Vinveli/sites/default/files/product/ documents/Paly_Gftwn_Dgoeccow_Alvl_PEJL-PwJ-6.pdfPerforming Laboratory:[facility] [place] [address]
--- NOTE | 2019-10-25 13:27 | P.CNS ---
Date of Consult: 10/25/19 Reason for Consult: MIRIAM History of Present Illness: A 24-year-old gentleman with significant past medical history of HTN, diabetes ,not compliant with his medication due to lack of insurance . Pt presented to labs Pt was admitted recently for DKA, had MIRIAM with anuria , and started on HD pt bacme non oliguric ~2wks ago, but no improvement in RFT , last Monday had HD, cr was trending down , HD on Monday 3.3 , dialysis held no nausea, vomiting, diarrhea Past Medical History: Includes, 1. Diabetes. 2. Morbid obesity. 3. Obesity. 4. Hypothyroidism. Allergies: NO KNOWN DRUGS ALLERGY. Surgical History: Negative. Social History: Denies smoking. Denies drinking. Denies drugs abuse. Not working. Review of Systems: as in HPI Physical Examination: Chest: Clear to auscultation. Heart: S1, S2. Regular. Abdomen: Morbidly obese. Tenderness. No guarding or rebound. Extremities: Trace edema. Neurologic: Alert, oriented x3. No focal. MIRIAM pt dilaysis on hold last CR 3.3 on 10/22 labs today , if Cr cont to improve then will cont to hold HD and F/U pt Next Monday as an outpatient HTN resume home meds DM on insulin Allergies No Known Allergies Allergy (Verified 10/01/19 15:26) Home Medications: Metformin HCl 500 mg PO BID #60 tablet 03/18/18 - Past Medical/Surgical History Diabetic: Yes -: hypothyroid, has not been on medicine for 4 1/2 years -: was hospitalized 02/2017 for hyperglycemia, quit taking insulin per his MD -: DM II -: obesity -: htn -: high cholesterol - Social History Alcohol use: No CD- Drugs: No Caffeine use: Yes
[2019-10-25 13:51] LABS: Potassium 4.3 mmol/L (3.5-5.1)
--- NOTE | 2019-10-25 14:16 | EDPHYS ---
Physician Documentation [facility] Name: Vijay Law Age: 24 yrs Sex: Male : 1995 Arrival Date: 10/25/2019 Time: 11:56 Bed 23 Private MD: TIARA Physician Toney Matias HPI: 10/24 13:16 This 24 yrs old Male presents to ER via Ambulatory with complaints of needs snw labs,missed dialysis. 13:16 Onset: The symptoms/episode began/occurred 1 month(s) ago, and became persistent. snw Associated signs and symptoms: The patient has no apparent associated signs or symptoms. Modifying factors: The patient symptoms are alleviated by past month in hospital. The patient has not experienced similar symptoms in the past. discharged on hemodialysis but need to reassess need for fci HD. Historical: - Allergies: 12:04 No Known Allergies; ll1 - PMHx: 12:04 Diabetes - NIDDM; Hypothyroidism; Thyroid problem; Hypertension; ll1 - PSHx: 12:04 venous catheter; ll1 - Immunization history:: Flu vaccine is up to date. - Social history:: Smoking status: Patient denies any tobacco usage or history of. Patient/guardian denies using alcohol, street drugs. ROS: 13:16 Constitutional: Negative for fever, chills, and weight loss, Eyes: Negative for injury, snw pain, redness, and discharge, ENT: Negative for injury, pain, and discharge, Neck: Negative for injury, pain, and swelling, Cardiovascular: Negative for chest pain, palpitations, and edema, Respiratory: Negative for shortness of breath, cough, wheezing, and pleuritic chest pain, Abdomen/GI: Negative for abdominal pain, nausea, vomiting, diarrhea, and constipation, Back: Negative for injury and pain, : Negative for injury, bleeding, discharge, and swelling, MS/Extremity: Negative for injury and deformity, Skin: Negative for injury, rash, and discoloration, Neuro: Negative for headache, weakness, numbness, tingling, and seizure, Psych: Negative for depression, anxiety, suicide ideation, homicidal ideation, and hallucinations. Exam: 13:16 Constitutional: This is a well developed, obese patient who is awake, alert, and in no snw acute distress. Head/Face: Normocephalic, atraumatic. Eyes: Pupils equal round and reactive to light, extra-ocular motions intact. Lids and lashes normal. Conjunctiva and sclera are non-icteric and not injected. Cornea within normal limits. Periorbital areas with no swelling, redness, or edema. ENT: Nares patent. No nasal discharge, no septal abnormalities noted. Tympanic membranes are normal and external auditory canals are clear. Oropharynx with no redness, swelling, or masses, exudates, or evidence of obstruction, uvula midline. Mucous membranes moist. Neck: Trachea midline, no thyromegaly or masses palpated, and no cervical lymphadenopathy. Supple, full range of motion without nuchal rigidity, or vertebral point tenderness. No Meningismus. Chest/axilla: Normal chest wall appearance and motion. Nontender with no deformity. No lesions are appreciated. Cardiovascular: Regular rate and rhythm with a normal S1 and S2. No gallops, murmurs, or rubs. Normal PMI, no JVD. No pulse deficits. Respiratory: Lungs have equal breath sounds bilaterally, clear to auscultation and percussion. No rales, rhonchi or wheezes noted. No increased work of breathing, no retractions or nasal flaring. Abdomen/GI: Soft, non-tender, with normal bowel sounds. No distension or tympany. No guarding or rebound. No evidence of tenderness throughout. Back: No spinal tenderness. No costovertebral tenderness. Full range of motion. Skin: Warm, dry with normal turgor. Normal color with no rashes, no lesions, and no evidence of cellulitis. MS/ Extremity: Pulses equal, no cyanosis. Neurovascular intact. Full, normal range of motion. Neuro: Awake and alert, GCS 15, oriented to person, place, time, and situation. Cranial nerves II-XII grossly intact. Motor strength 5/5 in all extremities. Sensory grossly intact. Cerebellar exam normal. Normal gait. Psych: Awake, alert, with orientation to person, place and time. Behavior, mood, and affect are within normal limits. Vital Signs: 12:01 BP 158 / 110; Pulse 98; Resp 18; Temp 99.8; Pulse Ox 99% ; Weight 144.24 kg; Height 5 ll1 ft. 9 in. (175.26 cm); Pain 0/10; 14:06 BP 151 / 104; Pulse 96; Resp 17 S; Pulse Ox 99% on R/A; jd3 12:01 Body Mass Index 46.96 (144.24 kg, 175.26 cm) ll1 MDM: 12:35 Patient medically screened. [facility] 13:13 Data reviewed: vital signs, nurses notes. Counseling: I had a detailed discussion with snw the patient and/or guardian regarding: the historical points, exam findings, and any diagnostic results supporting the discharge/admit diagnosis, the presence of at least one elevated blood pressure reading (>120/80) during this emergency department visit, lab results, the need for outpatient follow up. Physician consultation: Dr. Seth was called at 13:15, was contacted at 13:15, regarding consult, in the emergency department to see patient at 13:15, needs Chem 7 in ED, Dr. Seth will see him in clinic on Monday. 14:03 Physician consultation: Dr Seth was called at 14:04, was contacted at 14:04, regarding snw outpatient follow-up, hold dialysis this week and Dr. Seth will see pt in his clinic on Monday10/30/19 chem 7 results. 10/24 12:57 Order name: Glucose, Ancillary Testing; Complete Time: 13:05 EDMS 10/24 13:09 Order name: Chem 7; Complete Time: 13:52 snw 10/24 12:30 Order name: EKG; Complete Time: 12:31 snw 10/24 12:30 Order name: EKG - Nurse/Tech; Complete Time: 12:41 snw 10/24 12:30 Order name: FSBS; Complete Time: 12:31 snw Administered Medications: No medications were administered Point of Care Testing: Blood Glucose: 12:52 Blood Glucose: 110 mg/dL; jd3 Ranges: Critical Glucose Levels:Adult <50 mg/dl or >400 mg/dl <40 mg/dl or >180 mg/dl Disposition: 15:25 Co-signature as Attending Physician, Toney Matias MD I agree with the assessment and [facility] plan of care. Disposition: 10/25/19 14:15 Discharged to Home. Impression: Stable Acute Kidney Injury. - Condition is Stable. - Discharge Instructions: Acute Kidney Injury, Adult, Chronic Kidney Disease, Adult. - Medication Reconciliation Form, Thank You Letter, Antibiotic Education, Prescription Opioid Use form. - Follow up: Emergency Department; When: As needed; Reason: Worsening of condition. Follow up: Private Physician; When: 10/30/2019; Reason: Re-evaluation by your physician. Signatures: Dispatcher [employer] Toney Ceja MD MD cha Waters, Shelly, PYROTECHNICIAN-C PYROTECHNICIAN-Csnw Sharath Quinn RN RN jd3 Neftali Duckworth RN RN ll1 Corrections: (The following items were deleted from the chart) 14:42 14:15 10/25/2019 14:15 Discharged to Home. Impression: Stable Acute Kidney Injury. jd3 Condition is Stable. Forms are Medication Reconciliation Form, Thank You Letter, Antibiotic Education, Prescription Opioid Use. Follow up: Emergency Department; When: As needed; Reason: Worsening of condition. Follow up: Private Physician; When: 10/30/2019; Reason: Re-evaluation by your physician. snw
--- NOTE | 2019-10-25 14:16 | ER ---
Nurse's Notes [facility] Name: Vijay Law Age: 24 yrs Sex: Male : 1995 Arrival Date: 10/25/2019 Time: 11:56 Bed 23 Private MD: Diagnosis: Stable Acute Kidney Injury Presentation: 10/24 12:01 Chief complaint: Patient states: Last dialysis was Monday. Needs labs drawn for his ll1 doctor Elsy. Still feels weak. Released from [facility] Monday after being transferred there from our hospital last month. Coronavirus screen: Client denies travel out of the [place] in the last 14 days. cough unrelated to allergies, Client presents with at least one sign or symptom that may indicate coronavirus-19. Standard/surgical mask placed on the client. The client reports previous COVID testing was negative. Ebola Screen: Patient denies travel to an Ebola-affected area in the 21 days before illness onset. Initial Sepsis Screen: Does the patient meet any 2 criteria? HR > 90 bpm. No. Patient's initial sepsis screen is negative. Risk Assessment: Do you want to hurt yourself or someone else? Patient reports no desire to harm self or others. Onset of symptoms was October 25, 2019. 12:01 Method Of Arrival: Ambulatory ll1 12:01 Acuity: SUYAPA 3 ll1 12:13 Initial Sepsis Screen: Does the patient have a suspected source of infection? No. jd3 Patient's initial sepsis screen is negative. Historical: - Allergies: 12:04 No Known Allergies; ll1 - PMHx: 12:04 Diabetes - NIDDM; Hypothyroidism; Thyroid problem; Hypertension; ll1 - PSHx: 12:04 venous catheter; ll1 - Immunization history:: Flu vaccine is up to date. - Social history:: Smoking status: Patient denies any tobacco usage or history of. Patient/guardian denies using alcohol, street drugs. Screenin:12 Abuse screen: Denies threats or abuse. Nutritional screening: No deficits noted. jd3 Tuberculosis screening: No symptoms or risk factors identified. Fall Risk Ambulatory Aid- None/Bed Rest/Nurse Assist (0 pts). Gait- Normal/Bed Rest/Wheelchair (0 pts) Mental Status- Oriented to own ability (0 pts). Total Garza Fall Scale indicates No Risk (0-24 pts). Assessment: 12:11 General: Appears in no apparent distress. comfortable, Behavior is calm, cooperative, jd3 appropriate for age, Reports fatigue for 2-3 days. Pain: Denies pain. Neuro: Level of Consciousness is awake, alert, obeys commands, Oriented to person, place, time, situation. Cardiovascular: Denies chest pain, Heart tones S1 S2 present Capillary refill < 3 seconds Patient's skin is warm and dry. Respiratory: Airway is patent Respiratory effort is even, unlabored, Respiratory pattern is regular, symmetrical, Breath sounds are clear bilaterally. Denies cough, shortness of breath. GI: No signs and/or symptoms were reported involving the gastrointestinal system. Abdomen is round non-distended, Patient currently denies abdominal pain, constipation, diarrhea, nausea, vomiting. : No signs and/or symptoms were reported regarding the genitourinary system. EENT: No signs and/or symptoms were reported regarding the EENT system. Derm: Skin is intact, Skin is dry, Skin is normal, Skin temperature is warm. Musculoskeletal: Circulation, motion, and sensation intact. Range of motion: intact in all extremities. 13:20 Reassessment: Patient appears in no apparent distress at this time. Patient and/or jd3 family updated on plan of care and expected duration. Pain level reassessed. Patient is alert, oriented x 3, equal unlabored respirations, skin warm/dry/pink. primary provider at bedside. 14:06 Reassessment: Patient appears in no apparent distress at this time. Patient and/or jd3 family updated on plan of care and expected duration. Pain level reassessed. Patient is alert, oriented x 3, equal unlabored respirations, skin warm/dry/pink. awaiting disposition. 14:41 Reassessment: Patient appears in no apparent distress at this time. Patient and/or jd3 family updated on plan of care and expected duration. Pain level reassessed. Patient is alert, oriented x 3, equal unlabored respirations, skin warm/dry/pink. Patient denies pain at this time. Vital Signs: 12:01 BP 158 / 110; Pulse 98; Resp 18; Temp 99.8; Pulse Ox 99% ; Weight 144.24 kg; Height 5 ll1 ft. 9 in. (175.26 cm); Pain 0/10; 14:06 BP 151 / 104; Pulse 96; Resp 17 S; Pulse Ox 99% on R/A; jd3 12:01 Body Mass Index 46.96 (144.24 kg, 175.26 cm) ll1 ED Course: 11:56 Patient arrived in ED. as 12:03 Triage completed. ll1 12:05 Arm band placed on. ll1 12:07 Sharath Quinn, RN is Primary Nurse. jd3 12:13 Patient has correct armband on for positive identification. Bed in low position. Call jd3 light in reach. Side rails up X 1. Pulse ox on. NIBP on. 12:27 Ivonne Plascencia FNP-C is PHCP. snw 12:27 Toney Matias MD is Attending Physician. snw 13:29 Initial lab(s) drawn, by me, sent to lab. jd3 14:41 No provider procedures requiring assistance completed. Patient did not have IV access jd3 during this emergency room visit. Administered Medications: No medications were administered Point of Care Testing: Blood Glucose: 12:52 Blood Glucose: 110 mg/dL; jd3 Ranges: Outcome: 14:15 Discharge ordered by . snw 14:42 Discharged to home ambulatory, with family. jd3 14:42 Condition: stable 14:42 Discharge instructions given to patient, Instructed on discharge instructions, follow up and referral plans. Demonstrated understanding of instructions, follow-up care. 14:42 Patient left the ED. jd3 Signatures: Ivonne Plascencia FNP-C [employer] SALES PROFESSIONAL-Csnw Rosa Hernandez as Sharath Quinn, RN RN jd3 Neftali Duckworth RN RN ll1 Corrections: (The following items were deleted from the chart) 12:11 12:01 Chief complaint: Patient states: Last dialysis was Monday. Needs labs drawn for ll1 his doctor Elsy. Still feels weak. ll1
[2019-10-25 14:48] VITALS: TEMP 99.8; O2SAT 99
[2019-10-25 14:49] VITALS: BP 151/104
== END 2019-10-25 14:42 | disposition home or self-care (01) ==
LOC: ER 11:53
DX: N17.9 Acute kidney failure, unspecified (principal); I10 Essential (primary) hypertension; E11.9 Type 2 diabetes mellitus without complications; E03.9 Hypothyroidism, unspecified; E78.00 Pure hypercholesterolemia, unspecified; E66.01 Morbid (severe) obesity due to excess calories; Z99.2 Dependence on renal dialysis
CPT/HCPCS: 36415; 80048; 82947; 93005; 99283

== ENCOUNTER 2019-12-01 12:45 | Emergency (ER) | payer SELFPAY ==
--- OUTSIDE RECORDS SUMMARY | 2019-12-01 12:49 | XMS REPORT | Clinical Summary ---
:1995 Author Organization [facility] Address [address] [place] [address] Care Team Providers Name Role Phone Pcp Primary Care Provider Unavailable Allergies No Known Allergies Medications Medication Sig Dispensed Refills Start Date End Date Status metFORMIN Take 500 mg by 0 09/19/2019 10/23/19 Disc ontinued (GLUCOPHAGE) 500 mouth every 12 20 MG tablet (twelve) hours. carvediloL Take 1 tablet (12.5 60 tablet 0 10/23/2019 11/22/19 (COREG) 12.5 MG mg total) by mouth 20 tablet 2 (two) times daily for 30 days. calcium carbonate Take 2 tablets 60 tablet 0 10/23/2019 (TUMS) 500 mg (1,000 mg total) by 20 chewable tablet mouth 3 (three) times daily as needed for up to 30 days. atorvastatin Take 1 tablet (40 30 tablet 0 10/23/2019 11/22/19 (LIPITOR) 40 MG mg total) by mouth 20 tablet nightly for 30 days. insulin glargine Inject 15 Units 9 mL 0 10/23/2019 (LANTUS) 100 subcutaneously 2 20 unit/mL syringe (two) times daily for 30 days Use as directed. NIFEdipine Take 1 tablet (30 30 tablet 0 10/24/2019 11/23/19 (ADALAT CC) 30 MG mg total) by mouth 20 24 hr tablet daily for 30 days. Active Problems Problem Noted Date Acute renal failure 10/04/2019 Encounters Date Type Specialty Care Team Description 10/05/2019 Travel 10/04/2019 - Hospital Encounter General Internal Heidy Ruano Acute renal failure 10/23/2019 Medicine MD Cecilia with tubular necrosis (HCC) (Primary Dx) 10/01/2019 Lab Requisition Lab after 11/30/2018 Social History Tobacco Use Types Packs/Day Years [...] 10/23/2019 4:49 AM CDT Plan of Treatment Health Maintenance Due Date Last Done Comments INFLUENZA VACCINE (#1) 2019 LIPID PANEL 10/04/2022 10/05/2019, 10/04/2019 Procedures Procedure Name Priority Date/Time Associated Comments Diagnosis RHYTHM STRIP - SCAN 11/04/2019 3:20 PM CDT RHYTHM STRIP - SCAN 10/29/2019 8:11 AM CDT RHYTHM STRIP - SCAN 10/29/2019 8:11 AM CDT RHYTHM STRIP - SCAN 10/29/2019 8:11 AM CDT CARDIAC CATH REPORT - 10/29/2019 8:11 SCAN AM CDT CARDIAC CATH REPORT - 10/29/2019 8:10 SCAN AM CDT POCT-GLUCOSE METER Routine 10/23/2019 11:14 Resul ts [...] are i n the results section. SARS-COV2/RT-PCR ([facility] Routine 10/01/2019 4:45 R esults for this & REF LABS) PM CDT procedure are i n the results section. after 11/30/2018 Results RHYTHM STRIP - SCAN (11/04/2019 3:20 PM CDT)Only the most recent of4 results within the time period is included. Narrative Performed At This result has an attachment that is no t available. CARDIAC CATH REPORT - SCAN (10/29/2019 8:11 AM CDT) Narrative Performed At This result has an attachment that is no t available. CARDIAC CATH REPORT - SCAN (10/29/2019 8:10 AM CDT) Narrative Performed At This result has an attachment that is no t available. POC-Glucose meter (10/23/2019 11:14 AM CDT)Only the most recent of103 results within the time period is included. POC-Glucose Meter 111 (H)Comment: : TESTED 70 - 110 mg/dL [facility] [address] [facility] [id number]: Hydrogen Power Plant Engineer/Cook Barbecue ID = [id number] for Sarai Corley Specimen Blood Performing Organization Address City/State/Zipcode Phone Number [facility] [address] [place] [phone] CENTER CBC with platelet count + [...] 1 (H) 0 - 0 % [facility] Specimen Blood Performing Organization Address City/State/Zipcode Phone Number [facility] [address] [place] [phone] Comprehensive metabolic panel (10/23/2019 5:30 AM [...] 21Comment: ESTIMATED GFR mL/min/1.73 sq m [facility] IS NOT ACCURATE CREATININE CLEARANCE IN PREDICTING GLOMERULAR FILTRATION RATE. ESTIMATED GFR IS NOT APPLICABLE FOR DIALYSIS PATIENTS. Specimen Blood Narrative Performed At Hydrogen Power Plant Engineer ID - [email or web address] [facility] Performing Organization Address City/State/Zipcode Phone Number [facility] [address] [facility], [facility] 478 XR chest 1 view portable / bedside (10/21/2019 10:17 AM CDT)Only the most recent of4 resultswithin the time period is included. Specimen Narrative Performed At FINAL REPORT [facility] CLINICAL HISTORY: SOB TECHNIQUE: 1 view of [...] MD Report Verified Date/Time:10/21/2019 10:31:25 [facility] Procedure Note Interface, External Ris [...] Verified Date/Time: 10/21/2019 1 0:31:25 Reading Location: [facility] Reading Room Performing Organization Address City/[facility] Phone Number [employer] Document Management software TRANSFUSION SERVICE REPORT - SCAN (10/17/2019 6:06 PM CDT)Only the most recent of2 resultswithin the time period is included. Narrative Performed At This result has an attachment that is no t available. Prepare Leuko-Red RBC (10/16/2019 11:54 PM CDT) CROSSMATCH COMPATIBLE SAFETRACE TX Unit ABO O Pos SAFETRACE TX UNIT NUMBER [id number] SAFETRACE TX Status TX_TIMEINCHART SAFETRACE TX Blood Bank Product RED BLOOD CELLS SAFETRACE TX PRODUCT CODE [id number] SAFETRACE TX CROSSMATCH COMPATIBLE SAFETRACE TX Unit ABO O Pos SAFETRACE TX UNIT NUMBER [id number] SAFETRACE TX Status TX_TIMEINCHART SAFETRACE TX Blood Bank Product RED BLOOD CELLS SAFETRACE TX PRODUCT CODE [id number] SAFETRACE TX Specimen Other Performing Organization Address [facility] Phone Number SAFETRACE TX IR Tunneled Catheter Insertion (10/16/2019 4:41 PM CDT) Specimen Narrative Performed At FINAL REPORT [employer] Document Management software Procedure: Tunneled dialysis catheter pl acement. History: Need for hemodialysis. Motion Picture Projectionist Apprentice: Haim Garcia MD. Saw Handle Assembler: Oc Grigsby. Modality: Sonography and fluoroscopy. DOSE [...] applied. The venotomy site was closed using [place] and[place]. An aseptic dressing was applied using the protocol for Dermabond . The patient was transferred to the [facility] and was discharged from the department in stable condition. Complications: None immediate. Device: 15.5 Greenlandic x 19 cm cuff to tip Duraflow [...] MD Report Verified Date/Time:10/22/2019 10:46:01 Reading Location: [place] [address] Angio Body Reading Room Procedure Note Interface, External Ris In - 10/22/2019 10:48 AM CDT FINAL REPORT Procedure: Tunneled dialysis catheter pl acement. History: Need for hemodialysis. Motion Picture Projectionist Apprentice: Haim Garcia MD. Saw Handle Assembler: Lala Grigsby Modality: Sonography and fluoroscopy. DOSE [...] applied. The venotomy site was closed using [place]. An aseptic dressing was applied using the protocol for Dermabond . The patient was transferred to the [facility] and was discharged from the department in stable condition. Complications: None immediate. Device: 15.5 Greenlandic x 19 cm cuff to tip Duraflow [...] Verified Date/Time: 10/22/2019 1 0:46:01 Reading Location: [place] [address] Angio Body Reading Room Performing Organization Address City/State/Zipcode Phone Number [facility] Lipase (10/16/2019 5:10 AM CDT)Only the most recent of6 resultswithin the time period is included. Lipase 87 (H) 6 - 51 U/L [facility] Specimen Blood Narrative Performed At Hydrogen Power Plant Engineer ID - [email or web address] [facility] Performing Organization Address City/State/Zipcode Phone Number [facility] [address] [place], [place] [address] Transfuse Leuko-Red RBC (10/15/2019 5:33 PM CDT)Only the most recent of3 resultswithin the time period is included.ABORH, manual (10/15/2019 9:34 AM CDT) ABO Grouping O [facility] Rh Factor POSComment: 10/15/2019 @ 0931 [facility] PINK TOP [id number] Specimen Blood Performing Organization Address City/[facility]/Zipcode Phone Number [facility] [address] [place], [place] [phone] [facility] Type and screen, automated (10/15/2019 8:17 AM CDT) ABO/RH AUTOMATED (BEAKER) O POSITIVE [facility] Ab Scrn NEGATIVE [facility] Specimen Blood Performing Organization Address City/[facility]/Zipcode Phone Number [facility] [address] [place], [place] [phone] [facility] Amylase (10/15/2019 6:14 AM CDT)Only the most recent of5 resultswithin the time period is included. Amylase 79 30 - 110 U/L [facility] Specimen Blood Narrative Performed At Hydrogen Power Plant Engineer ID - ZACH [facility] Performing Organization Address [facility] Phone Number [facility] [address] [place] [phone] Basic Metabolic Panel (10/15/2019 6:14 AM CDT)Only the most recent of9 results within the time period is included. Sodium 138 135 - 148 meq/L [facility] Potassium 3.9 3.6 - 5.5 meq/L [facility] Chloride 99 98 - 106 meq/L [facility] CO2 25 20 - 29 meq/L [facility] BUN 20 10 - 26 mg/dL [facility] Creatinine 4.87 (H) 0.50 - 1.20 mg/dL [facility] Glucose 137 (H) 70 - 110 mg/dL [facility] Calcium 7.9 (L) 8.5 - 10.5 mg/dL [facility] EGFR 15Comment: ESTIMATED GFR IS NOT mL/min/1.73 s q m [facility] ACCURATE CREATININE CLEARANCE IN PREDICTING GLOMERULAR FILTRATION RATE. ESTIMATED GFR IS NOT APPLICABLE FOR DIALYSIS PATIENTS. Specimen Blood Narrative Performed At Hydrogen Power Plant Engineer ID - [email or web address] [facility] Performing Organization Address City/[facility]/Zipcode Phone Number [facility] [address] [place], [place] [address] Procalcitonin (10/13/2019 5:14 AM CDT) Procalcitonin 0.57 (H) <0.05 ng/mL [facility] Specimen Blood Narrative Performed At SEPSIS RISK (ng/mL) [facility] Low:0.05-0.50 Intermediate: 0.51-2.00 High: >=2.01 Performing Organization Address [facility] Phone Number [place] [phone] [place], [place] [address] CBC (Hemogram only) (10/13/2019 5:14 AM CDT) WBC 30.1 (H) 4.0 - 10.0 K/L [facility] RBC 2.82 (L) 4.20 - 5.80 M/L [facility] Hemoglobin 7.5 (L) 13.0 - 16.8 GM/DL [facility] Hematocrit 23.6 (L) 36.0 - [...] 0 0 - 0 /100 WBC [facility] Specimen Blood Performing Organization Address [facility] Phone Number [facility] [place], [place] [address] Triglycerides (10/13/2019 5:14 AM CDT)Only the most recent of2 resultswithin the time period is included. Triglycerides 413 mg/dL [facility] Specimen Blood Narrative Performed At TRIGLYCERIDE REFERENCE RANGE [facility] Low Risk<150 Borderline Risk 150-199 High [id number] Very High Risk >=500 [employer] Power Plant Engineer ID - RESORIAN [employer] Power Plant Engineer ID - RESORIAN Hydro[employer] Power Plant Engineer ID - RESORIAN [employer] Power Plant Engineer ID - RESORIAN Performing Organization Address [facility]/Zipcode Phone Number [facility] [address] [place], [place] [address] Magnesium (10/12/2019 4:42 AM CDT)Only the most recent of6 resultswithin the time period is included. Magnesium 1.7 1.5 - 3.0 mg/dL [facility] Specimen Blood Narrative Performed At Hydrogen Power Plant Engineer ID - [id number] [facility] Performing Organization Address [facility] Phone Number [facility] [address] [place], [place] [address] Blood Culture - Rule Out Line Infection (Central Line) (10/11/2019 6:44 PM CDT) Only the most recent of3 resultswithin the time period is included. Result No growth in 5 days [facility] Specimen Blood Performing Organization Address [facility] Phone Number [facility] [place], [place] [address] Manual Differential (10/11/2019 5:32 AM CDT)Only [...] Performing Organization Address City/State/Zipcode Phone Number [facility] [address] [facility] [place], [place] [address] Hepatitis B core antibody, total (10/10/2019 2:35 PM CDT) Hep B Core Total Ab Nonreactive Nonreactive [facility] Specimen Blood Narrative Performed At Hydrogen Power Plant Engineer ID - DB [facility] Performing Organization Address City/State/Zipcode Phone Number [facility] [address] [place] [address] abdomen/pelvis with IV contrast (10/09/2019 2:18 PM CDT) Specimen Narrative Performed At FINAL REPORT Narr8 RIS HISTORY : LEUKOCYTOSIS TECHNIQUE :Multiple axial images of the chest, abdomen and pelvis were performed with 5 mm slice thickness with the administration of IV contrast from the lung apices to the pubic symphysis. This exam was performed according to our [facility] ursula dose optimization program which includes automated [...] MD Report Verified Date/Time:10/09/2019 14:52:27 Reading Location: [facility] Radiology [facility] Room Procedure Note Interface, External Ris In - 10/09/2019 2:54 PM CDT FINAL REPORT HISTORY : LEUKOCYTOSIS TECHNIQUE : Multiple axial images of th e chest, abdomen and pelvis were performed with 5 mm slice thickness with the administration of IV contrast from the lung apices to the pubic symphysis. This exam was performed according to our [facility] ursula dose optimization program which includes automated [...] Verified Date/Time: 10/09/2019 1 4:52:27 Reading Location: [facility] Radiology [facility] Performing Organization Address City/State/Zipcode Phone Number [employer] Document Management software CT chest with IV contrast (10/09/2019 2:18 PM CDT) Specimen Narrative Performed At FINAL REPORT [employer] Document Management software HISTORY : LEUKOCYTOSIS TECHNIQUE :Multiple axial images [...] MD Report Verified Date/Time:10/09/2019 14:52:27 Reading Location: [facility] Procedure Note Interface, External Ris In - 10/09/2019 2:54 PM CDT FINAL REPORT HISTORY : LEUKOCYTOSIS TECHNIQUE : Multiple axial images of th e chest, abdomen and pelvis were performed with 5 mm slice thickness with the administration of IV contrast from the lung apices to the pubic symphysis. This exam was performed according to our [facility] ursula dose optimization program which includes automated [...] Verified Date/Time: 10/09/2019 1 4:52:27 Reading Location: [facility] Radiology [facility] Performing Organization Address City/State/Zipcode Phone Number [facility] C-Reactive Protein (10/08/2019 4:51 PM CDT) CRP 20.64 (H) 0.00 - 0.50 mg/dL [facility] Specimen Blood Narrative Performed At Hydrogen Power Plant Engineer ID - JBERN [facility] Performing Organization Address City/State/Zipcode Phone Number [facility] [address] [facility] [place], [place] [address] Clostridium difficile GDH Toxin (10/08/2019 4:36 PM CDT) C. Difficle Toxin Negative Negative [facility] C. Difficile GDH Antigen NegativeComment: No Negative [facility] indication of Clostridium difficile infection and no colonization. Discontinue enteric isolation and therapy. Specimen Stool Narrative Performed At Testing performed by [employer]iu Rapid Cassette Assay.Fo r GDH, [facility] published sensitivity of the assay is 98.7% compared t o cytotoxicity testing.For Toxin AB, published sensi tivity is 87.8% and specificity 99.4% compared to cytotoxicity testing. Verification of kit performance was done by the [facility] Microbiology Lab prior to clinical use. Performing Organization Address [facility] Phone Number [facility] [address] [place], [place] [phone] Urinalysis Microscopic Only (10/08/2019 4:36 PM CDT) RBC, UA 5-10 /HPF [facility] WBC, UA 5-10 /HPF [facility] Bacteria, UA Rare [facility] SQUAMOUS EPITHELIAL 5-10 /HPF [facility] Amorphous Crystals Moderate [facility] Yeast Few [facility] Specimen Urine Performing Organization Address [facility] Phone Number [place] [phone] [place], [place] [phone] Urinalysis with Microscopic If Indicated (10/08/2019 4:36 PM CDT) Color, UA Yellow [facility] Clarity, UA Clear [facility] Specific [place], UA 1.010 1.001 - 1.035 [facility] pH, UA 5.5 5.0 - 8.0 [facility] Protein, UA 30 mg/dL (A) [...] Urobilinogen, UA 0.2 0.2 - 1.0 mg/dL [facility] Specimen Source [facility] Specimen Urine Performing Organization Address [facility] Phone Number [facility] [address] [place], [place] [address] Ketone, blood (10/06/2019 9:29 AM CDT) Ketones, Blood 0.1 <0.4 mmol/L [facility] Specimen Blood Performing Organization Address City/[facility]/Zipcode Phone Number [facility] [address] [facility], [place] [address] Phosphorus (10/06/2019 4:25 AM CDT) Phosphorus 4.5 2.5 - 4.5 mg/dL [facility] Specimen Blood Narrative Performed At Hydrogen Power Plant Engineer ID - [email or web address] [facility] Performing Organization Address City/State/Zipcode Phone Number [facility] [address] [facility], [place] [address] IR non-tunneled dialysis catheter insertion (10/05/2019 2:55 PM CDT) Specimen Narrative Performed At FINAL REPORT [facility] Non-tunneled Dialysis Catheter Insertion History: Renal failure, need for central venous access. Modality: Fluoroscopy and sonography. Sedation: None. Motion Picture Projectionist Apprentice:Charly Fung MD. Saw Handle Assembler:None. Approach: Right internal jugular vein Estimated blood [...] was serially dilated. The 15 cm 13 [place] ialysis catheter was placed over the [...] MD Report Verified Date/Time:10/05/2019 16:27:11 Reading Location: [place] [address] Angio Body Reading Room Procedure Note Interface, External Ris In - 10/05/2019 4:29 PM CDT FINAL REPORT Non-tunneled Dialysis Catheter Insertion History: Renal failure, need for central venous access. Modality: Fluoroscopy and sonography. Sedation: None. Motion Picture Projectionist Apprentice: Charly Fung MD. Saw Handle Assembler: None. Approach: Right internal jugular vein Estimated [...] was serially dilated. The 15 cm 13 [place] Tr ialysis catheter was placed over the [...] Verified Date/Time: 10/05/2019 1 6:27:11 Reading Location: [place] [address] Angio Body Reading Room Performing Organization Address City/[facility] Phone Number [facility] Hepatitis B surface antibody (10/05/2019 1:20 PM CDT) Hep B S Ab <8.0 <8.0 mIU/mL [facility] Specimen Blood Narrative Performed At Hydro[employer] Power Plant Engineer ID - AARON Dupree [facility] Performing Organization Address [facility] Phone Number [address] [address] CENTER Hepatitis B surface antigen (10/05/2019 1:20 PM CDT) HBsAg Screen Nonreactive Nonreactive [facility] Specimen Blood Narrative Performed At Hydrogen Power Plant Engineer ID - ADMIN [facility] Performing Organization Address [facility] Phone Number [facility] [address] [place], [place] [address] aPTT (10/05/2019 8:09 AM CDT) PTT 30.2 23.0 - 35.0 sec [facility] Specimen Blood Narrative Performed At Final Information (Auto Output) [facility] Performing Organization Address [facility] Phone Number [facility] [address] [place] [phone] Prothromin time/INR (10/05/2019 8:09 AM CDT) Protime 10.6 9.3 - 12.0 sec [facility] INR 1.0 <=5.9 [facility] Specimen Blood Narrative Performed At RECOMMENDED COUMADIN/WARFARIN INR THERAP Y RANGES [facility] STANDARD DOSE: 2.0 - 3.0 Includes: PROPHYLAXIS for venous thrombosis, systemic embolization; TREATMENT for venou s thrombosis and/or pulmonary embolus. HIGH RISK: Target INR is 2.5-3.5 for patients with mec hanical heart valves. Final Information (Auto Output) Final Information (Auto Output) Performing Organization Address [facility] Number [address] [address] Fibrinogen (10/05/2019 8:09 AM CDT) Fibrinogen 960 (H) 200 - 400 mg/dL [facility] Specimen Blood Narrative Performed At Final Information (Auto Output) [facility] Performing Organization Address [facility] Phone Number [address] [phone] Lipid panel (10/05/2019 8:06 AM CDT)Only the most recent of2 resultswithin the time period is included. Triglycerides 783 mg/dL [facility] Cholesterol 230 mg/dL [facility] HDL 9 mg/dL [facility] Specimen Blood Narrative Performed At Calculated LDL not valid if triglyceride >400 mg/dL [facility] Triglyceride Reference Range: Low Risk <150 [id number] High Risk 200-499 Very High Risk>=500 Cholesterol Reference Range: Low Risk <200 [id number] High Risk>240 HDL Cholesterol Reference Range: Low Risk >=60 High Risk <40 LDL Cholesterol Reference Range: Optimal<100 Near [id number] Wlzw680-705 Very High >=190 [employer] Plant Engineer ID - ADMIN [employer] Engineer ID - ADMIN [employer] Plant Engineer ID - ADMIN [employer] Plant Engineer ID - ADMIN [employer] Plant Engineer ID - ADMIN [employer] Plant Engineer ID - ADMIN Performing Organization Address City/[facility] Phone Number [facility] [address] [place], [place] [address] Blood gas, arterial (10/05/2019 [...] -16.0 (L) -2.0 - 3.0 mmol/L [facility] Patient Temperature 37.0 C [facility] FIO2 21.0 % [facility] Specimen Blood, Arterial Performing Organization Address City/State/Zipcode Phone Number [address] [address] Hemoglobin A1c (10/04/2019 11:57 PM CDT) Hemoglobin A1C 12.5 (H) 4.3 - 6.1 % [facility] Specimen Blood Narrative Performed At [employer] Power Plant Engineer ID - [id number] [facility] Performing Organization Address City/State/Zipcode Phone Number [facility] [address] [place] [phone] Glucose-STAT (10/04/2019 11:57 PM CDT) Glucose 211 (H) 70 - 110 mg/dL [facility] Specimen Blood Narrative Performed At [employer] Power Plant Engineer ID - [id number] [facility] Performing Organization Address City/State/Zipcode Phone Number [facility] [address] [place] [phone] SARS-CoV2/RT-PCR ([facility]) (10/01/2019 4:45 PM CDT) SARS-COV2/RT-PCR Negative Not Detected, Negative, [facility] See external report for MEDICAL CENTER linked test SARS-COV-2 PERFORMING LAB [facility] HANG [facility] [facility] Specimen Other Narrative Performed At Negative result for this test determines that [facility] SARS-CoV-2 RNA was not present in the [...] the Act. Fact Sheet for Healthcare Providers: https://www.[employer].com/sites/default/files/pro duct/documents/Fact_Sheet_HC_Providers_Lyra_SA RS-CoV-2.pdf Fact Sheet for Healthcare Patients: https://www.[employer].com/sites/default/files/pro duct/documents/Fact_Sheet_Patients_Lyra_SARS-C oV-2.pdf Performing Laboratory: [address] [place] [address] Performing Organization Address City/State/Zipcode Phone Number [address] [address] CENTER after 11/30/2018 Advance Directives For more information, please contact:[place] [id number] [facility] [place], [place] [phone] Code Status Date Activated Date Inactivated Comments Full Code 10/04/2019 10:41 PM 10/23/2019 7:37 PM This code status was determined by: Patient
--- OUTSIDE RECORDS SUMMARY | 2019-12-01 12:52 | XMS REPORT | Continuity of Care Document ---
:1995 Author Organization [facility] t Address [address] [place] [address] Care Team Providers Name Role Phone Pcp [...] Date Stop Date Quantity Comments Source History [facility] Alcohol [facility] - Std Drinks [facility] History [facility] Alcohol [facility] - Binge [facility] Sex Assigned At [facility] History [facility] Stress 2019-10-05 2019-10-05 [facility] Center History SDOH 2019-10-05 2019-10-[address] [facility] [address] [facility] - Financial 00:00:00 00:00:00 [facility] Center History [facility] Alcohol 2019-10-04 2019-10-[address] [facility] [address] [facility] - Frequency 00:00:00 00:00:00 [facility] Center Smoking Status Start Date Stop Date Source Never smoker [facility] edical [place] Medications Ordered Filled Start Stop Current Ordering Indication Dosage Frequency Signature Comments Components Source Medication Medication Date Date Medication? Clinician (SIG) Name Name NIFEdipine 2019- No 30mg QD Take [address] [facility] [address] (ADALAT CC) 10-23 09-19 tablet (30 L ukes - 30 MG 24 hr 00:00: 23:59 mg total) Medical tablet 00 :00 by mouth Center daily for 30 days. carvediloL 2019-2019- No 12.5mg Q.5D Take [address] (COREG) 10-22 tablet [facility] - 12.5 MG 00:00: 23:59 (12.5 mg Medic al tablet 00 :00 total) by Center mouth 2 (two) times daily for 30 days. calcium 2019-2019- No 1000mg Take 2 [facility] carbonate 10-22 tablets [facility] - (TUMS) 500 00:00: 23:59 (1,000 mg M edical mg chewable 00 :00 total) by [facility] tablet mouth 3 (three) times daily as needed for up to 30 days. atorvastati 2019- No 40mg QD Take [address] [facility] [address] n (LIPITOR) 10-22 tablet (40 L ukes - 40 MG 00:00: 23:59 mg total) Medica l tablet 00 :00 by mouth Center nightly for 30 days. insulin 2019-2019- No 15U Q.5D Inject [address] glargine [...] Source Systolic blood 2019-10-23 11:41:00 134 mm[Hg] [facility] Diastolic blood 2019-10-23 11:41:00 81 mm[Hg] [facility] S t [facility] pressure [facility] Heart rate 2019-10-23 11:41:00 94 /min [facility] L [facility] Body temperature 2019-10-23 11:41:00 36.67 Lillie [facility] Respiratory rate 2019-10-23 11:41:00 20 /min [facility] Oxygen saturation in 2019-10-23 11:41:00 99 /min [facility] - Arterial blood by Medical Ce nter Pulse oximetry Body weight Measured 2019-10-23 04:49:00 147.056 kg [facility] BMI 2019-10-23 04:49:00 46.52 kg/m2 [facility] Body height 2019-10-06 17:55:[address] [facility] Procedures Procedure Date / Time Performed Performing Clinician Sour e RHYTHM STRIP - SCAN 2019-11-04 15:20:24 Provider, [facility] RHYTHM STRIP - SCAN 2019-10-29 08:11:16 Provider, [facility] RHYTHM STRIP - SCAN 2019-10-29 08:11:15 Provider, [facility] RHYTHM STRIP - SCAN 2019-10-29 08:11:13 Provider, [facility] CARDIAC CATH REPORT - 2019-10-29 08:11:11 Provider, [facility] CARDIAC CATH REPORT - 2019-10-29 08:10:59 Provider, [facility] POCT-GLUCOSE METER 2019-10-23 11:14:[address] POCT-GLUCOSE METER 2019-10-23 05:48:00 Alden [facility] COMPREHENSIVE METABOLIC 2019-10-23 05:30:[address] [facility] CBC W/PLT COUNT & AUTO 2019-10-23 05:30:[address] [facility] S [facility] POCT-GLUCOSE METER 2019-10-22 20:50:[address] [facility] POCT-GLUCOSE METER 2019-10-22 16:33:00 Alden [facility] POCT-GLUCOSE METER 2019-10-22 11:31:00 Alden [facility] COMPREHENSIVE METABOLIC 2019-10-22 05:54:[address] [facility] CBC W/PLT COUNT & AUTO 2019-10-22 05:54:00 [facility] S t [facility] POCT-GLUCOSE METER 2019-10-22 05:46:00 Alden Heidy [facility] POCT-GLUCOSE METER 2019-10-21 20:16:[address] [facility] POCT-GLUCOSE METER 2019-10-21 16:54:00 Heidy Ruano [facility] POCT-GLUCOSE METER 2019-10-21 12:34:00 Heidy Ruano [facility] XR CHEST 1 VIEW 2019-10-21 10:17:00 [facility] POCT-GLUCOSE METER 2019-10-21 06:09:00 Heidy Ruano [facility] COMPREHENSIVE METABOLIC 2019-10-21 05:59:[address] [facility] W/PLT COUNT & AUTO 2019-10-21 05:59:00 CorinthJuany [facility] POCT-GLUCOSE METER 2019-10-20 21:10:00 Johny [facility]francesco [facility] HEMOD[facility]YS[facility] INPATIENT 2019-10-20 16:52:16 Emma Mccurdy [facility] POCT-GLUCOSE METER 2019-10-20 16:33:00 Heidy Ruano [facility] POCT-GLUCOSE METER 2019-10-20 11:54:[address] POCT-GLUCOSE METER 2019-10-20 05:32:00 Heidy Ruano [facility] COMPREHENSIVE METABOLIC 2019-10-20 05:10:00 [facility] POCT-GLUCOSE METER 2019-10-19 21:31:00 Alden [facility] POCT-GLUCOSE METER 2019-10-19 16:43:00 Alden [facility] POCT-GLUCOSE METER 2019-10-19 12:46:00 Heidy Ruano [facility] CBC W/PLT COUNT & AUTO 2019-10-19 09:44:00 Juany Reid [facility] POCT-GLUCOSE METER 2019-10-19 05:52:00 Johny Ruanofrancesco [facility] POCT-GLUCOSE METER 2019-10-18 20:48:00 Heidy Ruano [facility] POCT-GLUCOSE METER 2019-10-18 16:18:00 Heidy Ruano [facility] HEMODIALYSIS INPATIENT 2019-10-18 14:19:25 Angie Chin [facility] POCT-GLUCOSE METER 2019-10-18 11:07:00 Heidy Ruano [facility] POCT-GLUCOSE METER 2019-10-18 05:36:00 Heidy Ruano [facility] COMPREHENSIVE METABOLIC 2019-10-18 04:36:00 CorinthJuany [facility] CBC W/PLT COUNT & AUTO 2019-10-18 04:36:00 CorinthJuany [facility] POCT-GLUCOSE METER 2019-10-17 20:25:00 Alden [facility] TRANSFUSION SERVICE 2019-10-17 18:06:[address] [facility] REPORT - SCAN [facility] POCT-GLUCOSE METER 2019-10-17 16:41:00 Heidy Ruano [facility] POCT-GLUCOSE METER 2019-10-17 11:27:00 Alden [facility] POCT-GLUCOSE METER 2019-10-17 05:56:00 Alden [facility] COMPREHENSIVE METABOLIC 2019-10-17 03:40:[address] [facility] CBC W/PLT COUNT & AUTO 2019-10-17 03:40:00 [facility] LEUKO-REDUCED RBC 2019-10-16 23:54:00 CorinthJuany [facility] POCT-GLUCOSE METER 2019-10-16 21:05:00 Heidy Ruano [facility] TRANSFUSION SERVICE 2019-10-16 18:06:[address] [facility] REPORT - SCAN Scanning [facility] POCT-GLUCOSE METER 2019-10-16 17:22:00 Heidy Ruano [facility] IR TUNNELED DIALYSIS 2019-10-16 16:41:00 [facility] POCT-GLUCOSE METER 2019-10-16 11:44:00 [facility] HEM[facility]YSIS INPATIENT 2019-10-16 07:54:33 Elsy [facility] POCT-GLUCOSE METER 2019-10-16 06:06:00 [facility] COMPRE[facility]ENSIVE METABOLIC 2019-10-16 05:10:00 [facility] PANEL [facility] LIPASE 2019-10-16 05:10:00 [facility] CBC W/PLT COUNT & AUTO 2019-10-16 05:10:00 [facility] DIFFERENTIAL [facility] POCT-GLUCOSE METER 2019-10-15 20:49:00 eHidy Ruano [facility] TRANSFUSE LEUKO-REDUCED 2019-10-15 17:33:34 [facility] RED BLOOD CELLS [facility] POCT-GLUCOSE METER 2019-10-15 15:46:00 Heidy Ruano [facility] TRANSFUSE LEUKO-REDUCED 2019-10-15 14:15:02 Corinth [facility] RED BLOOD CELLS [facility] POCT-GLUCOSE METER 2019-10-15 12:05:00 Heidy Ruano [facility] ABORH, MANUAL 2019-10-15 09:34:[address] [facility] TYPE AND SCREEN, 2019-10-15 08:17:00 Corinth [facility] s - AUTOMATED [facility] BASIC METABOLIC PANEL (7) 2019-10-15 06:14:00 Emma Mccurdy [facility] AMYLASE 2019-10-15 06:14:00 Franklin[place] [facility] LIPASE 2019-10-15 06:14:00 [facility] CBC W/PLT COUNT & AUTO 2019-10-15 06:14:00 [facility] POCT-GLUCOSE METER 2019-10-15 05:26:00 [facility] POCT-GLUCOSE METER 2019-10-14 21:00:00 Alden [facility] POCT-GLUCOSE METER 2019-10-14 18:13:00 Alden [facility] XR CHEST 1 VIEW 2019-10-14 14:06:00 [facility] HEMODIALYSIS INPATIENT 2019-10-14 11:31:03 [facility] POCT-GLUCOSE METER 2019-10-14 11:03:[address] POCT-GLUCOSE METER 2019-10-14 06:48:00 Alden [facility] BASIC METABOLIC PANEL (7) 2019-10-14 05:34:00 Calli [facility] POCT-GLUCOSE METER 2019-10-13 20:55:00 Alden [facility] POCT-GLUCOSE METER 2019-10-13 16:27:[address] POCT-GLUCOSE METER 2019-10-13 12:22:00 Alden [facility] POCT-GLUCOSE METER 2019-10-13 06:13:00 Alden [facility] CBC (HEMOGRAM ONLY) 2019-10-13 05:14:00 Calli [facility] BASIC METABOLIC PANEL (7) 2019-10-13 05:14:00 Emma Mccurdy [facility] TRIGLYCERIDES 2019-10-13 05:14:00 Calli [facility] PROCALCITONIN 2019-10-13 05:14:00 Calli [facility] POCT-GLUCOSE METER 2019-10-12 20:36:00 Heidy Ruano [facility] POCT-GLUCOSE METER 2019-10-12 16:33:00 Alden Heidy [facility] POCT-GLUCOSE METER 2019-10-12 11:55:00 Alden Heidy [facility] POCT-GLUCOSE METER 2019-10-12 05:51:00 Alden Heidy [facility] MAGNESIUM 2019-10-12 04:42:00 Elevdominga [facility] AMYLASE 2019-10-12 04:42:00 Elevdominga [facility] LIPASE 2019-10-12 04:42:00 Elevdominga [facility] POCT-GLUCOSE METER 2019-10-11 20:38:00 Alden Heidy [facility] BLOOD CULTURE 2019-10-11 18:44:00 Calli [facility] POCT-GLUCOSE METER 2019-10-11 16:59:[address] [facility] POCT-GLUCOSE METER 2019-10-11 12:11:00 Alden Heidy [facility] POCT-GLUCOSE METER 2019-10-11 05:39:00 Alden Heidy [facility] COMPREHENSIVE METABOLIC 2019-10-11 05:32:00 Elevazo [facility] MAGNESIUM 2019-10-11 05:32:00 Elevdominga [facility] AMYLASE 2019-10-11 05:32:00 Elevazo, [facility] LIPASE 2019-10-11 05:32:00 Elevdominga [facility] CBC W/PLT COUNT & AUTO 2019-10-11 05:32:[address] [facility] (MANUAL DIFFERENTIAL) 2019-10-11 05:32:00 Jessica Jimi [facility] POCT-GLUCOSE METER 2019-10-10 20:33:00 Alden [facility] POCT-GLUCOSE METER 2019-10-10 16:16:00 Heidy Ruano [facility] HEPATITIS B CORE 2019-10-10 14:35:00 Neelam [facility] POCT-GLUCOSE METER 2019-10-10 11:05:00 Alden [facility] HEMODIALYSIS INPATIENT 2019-10-10 09:49:49 Calli [facility] POCT-GLUCOSE METER 2019-10-10 05:21:00 Heidy Ruano [facility] COMPREHENSIVE METABOLIC 2019-10-10 05:10:00 Elevazo, [facility] MAGNESIUM 2019-10-10 05:10:00 Elevazo, [facility] AMYLASE 2019-10-10 05:10:00 Elevazo, [facility] LIPASE 2019-10-10 05:10:00 Elevazo, [facility] CBC W/PLT COUNT & AUTO 2019-10-10 05:10:00 Elevazo, [facility] (MANUAL DIFFERENTIAL) 2019-10-10 05:10:00 Elevazo, [facility] POCT-GLUCOSE METER 2019-10-09 20:44:00 Heidy Ruano [facility] HEMODIALYSIS INPATIENT 2019-10-09 18:50:32 Calli [facility] POCT-GLUCOSE METER 2019-10-09 16:41:00 Heidy Ruano [facility] LIPASE 2019-10-09 15:09:00 Elevazo, [facility] AMYLASE 2019-10-09 15:09:00 Elevazo, [facility] CT CHEST WITH IV CONTRAST 2019-10-09 14:18:00 NeelamEmma beckford [facility] CT ABDOMEN/PELVIS WITH IV 2019-10-09 14:18:00 Dain nic Dupree [facility] POCT-GLUCOSE METER 2019-10-09 11:21:00 Heidy Ruano [facility] POCT-GLUCOSE METER 2019-10-09 06:19:00 Heidy Ruano [facility] COMPREHENSIVE METABOLIC 2019-10-09 05:09:00 Elevazo, [facility] CBC W/PLT COUNT & AUTO 2019-10-09 05:09:00 Elevazo, [facility] (MANUAL DIFFERENTIAL) 2019-10-09 05:09:00 Elevazo, [facility] POCT-GLUCOSE METER 2019-10-08 20:59:00 Heidy Ruano [facility] BLOOD CULTURE 2019-10-08 17:05:00 Elevazo, [facility] BLOOD CULTURE 2019-10-08 16:51:00 Elevazo, [facility] C-REACTIVE PROTEIN 2019-10-08 16:51:00 Elevazo, [facility] C. DIFFICILE GDH TOXIN 2019-10-08 16:36:00 Elevazo, [facility] URINALYSIS WITH 2019-10-08 16:36:00 Elevazo, [facility] MICROSCOPIC IF INDICATED [facility] URINALYSIS MICROSCOPIC 2019-10-08 16:36:00 Elevazo, [facility] POCT-GLUCOSE METER 2019-10-08 16:30:00 Johny Ruanofrancesco [facility] XR CHEST 1 VIEW 2019-10-08 13:44:00 Dain [facility] - PORTABLE/BEDSIDE [facility] POCT-GLUCOSE METER 2019-10-08 11:15:00 Johny Ruanofrancesco [facility] POCT-GLUCOSE METER 2019-10-08 05:56:00 Heidy Ruano [facility] BASIC METABOLIC PANEL (7) 2019-10-08 05:14:00 Calli Francescocristina [facility] TRIGLYCERIDES 2019-10-08 05:14:00 Stanislav Ivory [facility] CBC W/PLT COUNT & AUTO 2019-10-08 05:14:00 Dain [facility] (MANUAL DIFFERENTIAL) 2019-10-08 05:14:[address] [facility] POCT-GLUCOSE METER 2019-10-08 01:00:00 Johny Ruanofrancesco [facility] POCT-GLUCOSE METER 2019-10-07 21:13:[address] [facility] POCT-GLUCOSE METER 2019-10-07 16:42:00 Alden [facility] POCT-GLUCOSE METER 2019-10-07 12:16:00 Heidy Ruano [facility] POCT-GLUCOSE METER 2019-10-07 06:51:00 Heidy Ruano [facility] COMPREHENSIVE METABOLIC 2019-10-07 05:58:00 [facility] MAGNESIUM 2019-10-07 05:58:00 Heidy Ruano [facility] CBC W/PLT COUNT & AUTO 2019-10-07 05:58:00 Johny Ruanofrancesco [facility] (MANUAL DIFFERENTIAL) 2019-10-07 05:58:00 Alden, [facility] POCT-GLUCOSE METER 2019-10-07 03:33:00 Alden [facility] POCT-GLUCOSE METER 2019-10-07 00:14:00 Alden [facility] POCT-GLUCOSE METER 2019-10-06 21:54:00 Alden [facility] POCT-GLUCOSE METER 2019-10-06 16:15:00 Alden, [facility] HEMODIALYSIS INPATIENT 2019-10-06 12:24:52 Calli [facility] POCT-GLUCOSE METER 2019-10-06 12:15:00 Alden, [facility] POCT-GLUCOSE METER 2019-10-06 11:03:00 Alden, [facility] HEMODIALYSIS INPATIENT 2019-10-06 10:19:34 Calli [facility] POCT-GLUCOSE METER 2019-10-06 09:58:00 Alden [facility] KETONE, BLOOD 2019-10-06 09:29:00 Stanislav Ivory [facility] POCT-GLUCOSE METER 2019-10-06 09:01:00 Alden, [facility] POCT-GLUCOSE METER 2019-10-06 07:50:00 Alden, [facility] POCT-GLUCOSE METER 2019-10-06 06:38:00 Alden [facility] POCT-GLUCOSE METER 2019-10-06 05:40:00 Alden, [facility] POCT-GLUCOSE METER 2019-10-06 04:33:00 Alden [facility] CBC W/PLT COUNT & AUTO 2019-10-06 04:28:00 Calli [facility] (MANUAL DIFFERENTIAL) 2019-10-06 04:28:00 [facility] BASIC [facility]OLIC PANEL (7) 2019-10-06 04:25:00 Emma Mccurdy [facility] PHOSPHORUS 2019-10-06 04:25:00 Calli [facility] POCT-GLUCOSE METER 2019-10-06 02:13:00 Alden Heidy [facility] POCT-GLUCOSE METER 2019-10-06 01:03:00 Alden [facility] POCT-GLUCOSE METER 2019-10-05 23:59:00 Alden, [facility] BASIC METABOLIC PANEL (7) 2019-10-05 23:53:00 Alden [facility] POCT-GLUCOSE METER 2019-10-05 22:58:00 Alden [facility] POCT-GLUCOSE METER 2019-10-05 22:24:00 Alden [facility] POCT-GLUCOSE METER 2019-10-05 21:30:00 Alden [facility] BASIC METABOLIC PANEL (7) 2019-10-05 20:25:00 Alden [facility] POCT-GLUCOSE METER 2019-10-05 19:55:00 Alden [facility] POCT-GLUCOSE METER 2019-10-05 18:57:00 Alden [facility] POCT-GLUCOSE METER 2019-10-05 18:13:00 Alden [facility] POCT-GLUCOSE METER 2019-10-05 15:45:00 Alden [facility] IR NON-TUNNELED DIALYSIS 2019-10-05 14:55:00 Stanislav Ivory [facility] - CATHETER INSERTION [facility] HEPATITIS B SURFACE 2019-10-05 13:20:00 Calli [facility] HEPATITIS B SURFACE 2019-10-05 13:20:00 Emma Mccurdy [facility] BASIC METABOLIC PANEL (7) 2019-10-05 13:20:00 [facility] POCT-GLUCOSE METER 2019-10-05 12:01:00 [facility] POCT-GLUCOSE METER 2019-10-05 10:28:00 [facility] HEMODIALYSIS INPATIENT 2019-10-05 09:52:18 [facility] POCT-GLUCOSE METER 2019-10-05 09:35:00 [facility] PROTHROMBIN TIME/INR 2019-10-05 08:09:00 Dianelys Stanislavdario Bang [facility] APTT 2019-10-05 08:09:00 Dianelys Stanislav [facility] FIBRINOGEN 2019-10-05 08:09:00 Dianelys [facility] COMPREHENSIVE METABOLIC 2019-10-05 08:06:00 Heidy Ruano I [facility] MAGNESIUM 2019-10-05 08:06:00 Heidy Ruano [facility] LIPID PANEL 2019-10-05 08:06:00 Calli [facility] CBC W/PLT COUNT & AUTO 2019-10-05 08:06:00 [facility] (MANUAL [facility]FFER[facility]) 2019-10-05 08:06:00 [facility] POCT-GLUCOSE METER 2019-10-05 08:00:00 [facility] POCT-GLUCOSE METER 2019-10-05 06:56:00 [facility] POCT-GLUCOSE METER 2019-10-05 06:00:00 [facility] XR CHEST 1 VIEW 2019-10-05 05:35:00 [facility] BLOOD GAS, ARTERIAL 2019-10-05 05:29:[address] [facility] POCT-GLUCOSE METER 2019-10-05 05:02:00 Johny Ruanofrancesco [facility] POCT-GLUCOSE METER 2019-10-05 03:58:00 Heidy Ruano [facility] POCT-GLUCOSE METER 2019-10-05 02:56:00 Heidy Ruano [facility] POCT-GLUCOSE METER 2019-10-05 02:06:00 Heidy Ruano [facility] POCT-GLUCOSE METER 2019-10-05 01:02:00 Heidy Ruano [facility] COMPREHENSIVE METABOLIC 2019-10-04 23:57:00 [facility] MAGNESIUM 2019-10-04 23:57:00 Heidy Ruano [facility] LIPID PANEL 2019-10-04 23:57:00 Heidy Ruano [facility] HEMOGLOBIN A1C 2019-10-04 23:57:00 Heidy Ruano [facility] POCT-GLUCOSE METER 2019-10-04 23:57:00 Alden [facility] CBC W/PLT COUNT & AUTO 2019-10-04 23:57:00 [facility] POCT-GLUCOSE METER 2019-10-04 22:58:00 [facility] POCT-GLUCOSE METER 2019-10-04 21:50:00 Alden [facility] SARS-COV2/RT-PCR ([facility] & 2019-10-01 16:45:00 [facility] - REF LABS) [facility] Plan of Care Planned Activity Planned Date Details Comments Source Future Scheduled 2022-10-04 Lipid panel [facility] [facility] 00:00:00 (procedure) [code = [facility] [id number]] Future Scheduled 2019-11-05 INFLUENZA VACCINE [facility] - Test 00:00:00 (#1) [code = [facility] INFLUENZA VACCINE (#1)] Results Test Description Test Time Test Comments Results Result Comments Source POC-Glucose meter 2019-10-23 11:25:00 Test Item Value Reference Range Interpretation Comme nts POC-Glucose Meter (test code = 111 mg/dL 70-110 H : [facility] [address]) [facility] [address]: National Account Manager/Techni garett ID = [id number] for Gauri Corley el Lab Interpretation (test code = Abnormal 93670-9) [facility] [id number] 11:25:00 Test Item Value Reference Range Interpretation Comments POC-GLUCOSE METER 111 mg/dL 70-110 H : TESTED A T [facility] [address] (BEAKER) (test code [address], = 1538) [facility] [address]: National Account Manager/Techni garett ID = [id number] for Sarai Solares Comprehensive metabolic [id number] 06:24:00 Test Item Value Reference Range Interpretation Comments Protein, Total (test 8.1 6.0- 8.5 gm/dL code = 2885-2) Albumin (test code = 3.7 g/dL 3.5-5 72849-6) Alkaline Phosphatase 113 U/L 30-115 (test code = 6768-6) Total Bilirubin (test 0.5 mg/dL 0.1-1.2 code = 1975-2) Sodium (test code = 142 meq/L 829-700 2646-2) Potassium (test code = 4.7 meq/L 3.6-5.5 2823-3) Chloride (test code = 105 meq/L 98-106 2075-0) CO2 (test code = 24 meq/L 20-29 8-9) BUN (test code = 37 mg/dL 10-26 H 3094-0) Creatinine (test code 3.61 mg/dL 0.5-1.2 H = 2160-0) Glucose (test code = 121 mg/dL 70-110 H 2345-7) Calcium (test code = 9.5 mg/dL 8.5-10.5 61058-7) AST (test code = 46 U/L 5-40 H 1920-8) ALT (test code = 25 U/L 5-50 1742-6) EGFR (test code = 21 mL/min/1.73 [place] [address]-3) NOT ACCURATE CREATININE CLEARANCE IN PREDICTING GLOMERULAR FILTRATION RATE . ESTIMATED GFR I S NOT APPLICABLE FOR DIALYSIS PATIENTS. LISET (test code = LISET) National Account Manager ID - [id number] Lab Interpretation Abnormal (test code = 72681-1) [facility] Center[facility]PRE[facility] MET[facility]OL[facility] [id number] 06:24:00 Test Item Value Reference Range Interpretation [...] S NOT APPLICABLE FOR DIALYSIS PATIEN TS. National Account Manager ID - JUSTINPOCT-GLUCOSE [id number] 06:11:00 Test Item Value Reference Range Interpretation Comments POC-GLUCOSE METER 115 mg/dL 70-110 H : TESTED A T [facility] [address] (BEAKER) (test code [address], = 1538) [facility] [place] [address]: National Account Manager/Techni garett ID = [id number] for Jennifer Teixeira ph CBC with platelet count + automated [id number] 05:57:00 Test Item Value Reference Range Interpretation [...] 430 K/CU MM MPV (test code = 53692-8) 9.4 fL 6-11.5 nRBC (test code = [...] 2801) Lab Interpretation (test code = Abnormal 01731-7) [facility] W/PLT COUNT & AUTO [id number] 05:57:00 Test Item Value Reference Range Interpretation [...] PERCENT (BEAKER) (test code = 2801) POCT-GLUCOSE [id number] 21:03:00 Test Item Value Reference Range Interpretation Comments POC-GLUCOSE METER 124 mg/dL 70-110 H : Notified RN/MD: TESTED (BEAKER) (test code AT [address] [address] = 1538) PKY, [facility] [address]: National Account Manager/Techni garett ID = [id number] for Jennifer Teixeira ph POCT-GLUCOSE [id number] 16:45:00 Test Item Value Reference Range Interpretation Comments POC-GLUCOSE METER 167 mg/dL 70-110 H : TESTED A T [facility] [address] (BEAKER) (test code [address], = 1538) [place] [address]: National Account Manager/Techni garett ID = [id number] for Tolo , Chisa POCT-GLUCOSE [id number] 11:42:00 Test Item Value Reference Range Interpretation Comments POC-GLUCOSE METER 136 mg/dL 70-110 H : [facility] (BEAKER) (test code [address] [facility], = 1538) [place] [address] 478: National Account Manager/Techni garett ID = [id number] for Tolo , Chisa ANG, TUNNELED CATHETER [id number] 10:46:00Reason for Central Line/PICC?->Need for hemodialysis accessReason for exam:->DialysisFINAL REPORT Procedure: Tunneled dialysis catheter placement. History: Need for hemodialysis. Almond Roaster: Haim Garcia MD. Field Clerk: Oc Grigsby. Modality: Sonography and fluoroscopy. DOSE [...] dedicated RN under direct supervision of Dr. Garcai, and remained stable. Medicines: Ancef 1 g [...] local anesthetic infiltration and dermatotomy with a mi cropuncture needle. A 018 guidewire was advanced into [...] to the recovery area and was discharged f rom the department in stable condition. Complications: None immediate. Device: 15.5 Chilean x 19 cm cuff to tip Duraflow [...] MDReport Verified Date/Time: 10/22/2019 10:46:01 Reading Location: [facility] P048 Angio Body Reading Room IR Tunneled Catheter [id number] 10:46:00Interface, External Ris In - 10/22/2019 10:48 AM CDTFINAL REPORT Procedure: Tunneled dialysis catheter placement. History: Need for hemodialysis. Almond Roaster: Haim Garcia MD. Field Clerk: Lala Grigsby Modality: Sonography and fluoroscopy. DOSE [...] performed using standard technique. Using aseptic precautions, real- time ultrasound guidance, the internal jugular vein was accessed after local anesthetic infiltration and dermatotomy with a micropuncture needle. A 018 guidewire was advancedinto the central venous system under fluoroscopic guidance. Over the wire a micropuncture sheath was placed. Through the micropuncture sheath, a 035 wire was advanced into the venous system under fluor oscopic guidance. Over the wire a peel-away sheath [...] the protocol for Dermabond. The patient was t ransferred to the recovery area and was discharged from the department in stable condition. Complications: None immediate. Device: 15.5 Chilean x 19 cm cuff to tip Duraflow [...] MDReport Verified Date/Time: 10/22/2019 10:46:01 Reading Location: [place] [address] Angio Body Reading Room [facility] [id number] 06:30:00 Test Item Value Reference Range Interpretation [...] S NOT APPLICABLE FOR DIALYSIS PATIEN TS. National Account Manager ID - [id number] W/PLT COUNT & AUTO [id number] 06:13:00 Test Item Value Reference Range Interpretation [...] PERCENT (BEAKER) (test code = 2801) POCT-GLUCOSE [id number] 05:58:00 Test Item Value Reference Range Interpretation Comments POC-GLUCOSE METER 94 mg/dL 70-110 : TESTED A T [facility] [address] (BEAKER) (test code = [address], 15[address]) [place] [address]: National Account Manager/Techni garett ID = [id number] for Odessa Rainey POCT-GLUCOSE [id number] 20:27:00 Test Item Value Reference Range Interpretation Comments POC-GLUCOSE METER 126 mg/dL 70-110 H : TESTED A T [facility] [address] (BEAKER) (test code [address], = 1538) [place] [address]: National Account Manager/Techni garett ID = [id number] for Janak hunter, Odessa POCT-GLUCOSE [id number] 17:05:00 Test Item Value Reference Range Interpretation Comments POC-GLUCOSE METER 215 mg/dL 70-110 H : Notified RN/MD: TESTED (LEYLA) (test [facility] AT [facility] [address] = [address]) [facility] [address]: National Account Manager/Techni garett ID = [id number] for Ksenia German POCT-GLUCOSE [id number] 12:45:00 Test Item Value Reference Range Interpretation Comments POC-GLUCOSE METER 80 mg/dL 70-110 : Notified RN/MD: TESTED (LEYLA) (test code = AT [facility] L [address]) [place] [address]: National Account Manager/Techni garett ID = [id number] for Ksenia German RAD, CHEST, 1 VIEW, NON [id number] 10:31:00Reason for exam:->SOBShould this be performed at the bedside?->YesFINAL REPORT CLINICAL HISTORY: SOB TECHNIQUE: 1 view of the chest. COMPARISON: 10/14/2019 IMPRESSION: The right central line is unchanged. Elevation of the right hemidiaphragm isagain seen with right basilar atelectasis and blunting of the right costophrenic angle. The left lung remains relatively well-aerated. The cardiomediastinal silhouette is magnified by technique. Signed: Suhail Dominguez Verified Date/Time: 10/21/2019 10:31:25 Reading Location: [facility] Radiology Reading Room XR chest 1 view portable / [id number] 10:31:00 Interface, External Ris In - 10/21/2019 [...] is magnified by technique. Signed: Suhail Dominguez Verified Date/Time: 10/21/2019 10:31:25 Reading Location: [facility] Radiology Reading Room [facility]COMPRE[facility] METABOL[facility] PANEL 2019-10-21 06:36:00 Test Item Value Reference Range Interpretation [...] S NOT APPLICABLE FOR DIALYSIS PATIEN TS. National Account Manager ID - RESORIANPOCT-GLUCOSE [id number] 06:20:00 Test Item Value Reference Range Interpretation Comments POC-GLUCOSE METER 114 mg/dL 70-110 H : TESTED A T [facility] [address] (BEAKER) (test code [address], = 1538) [facility] [address]: National Account Manager/Techni garett ID = [id number] for Odessa Rainey CBC W/PLT COUNT & AUTO [id number] 06:18:00 Test Item Value Reference Range Interpretation [...] PERCENT (BEAKER) (test code = 2801) POCT-GLUCOSE [id number] 21:21:00 Test Item Value Reference Range Interpretation Comments POC-GLUCOSE METER 134 mg/dL 70-110 H : TESTED A T [facility] [address] (BEAKER) (test code [facility], = 1538) [place] [id number]: National Account Manager/Techni garett ID = [id number] for Odessa Rainey POCT-GLUCOSE [id number] 17:24:00 Test Item Value Reference Range Interpretation Comments POC-GLUCOSE METER 115 mg/dL 70-110 H : TESTED A T [facility] [address] (BEAKER) (test code [facility], = 1538) [place] [address]: National Account Manager/Techni garett ID = [id number] for Natividad Gregory POCT-GLUCOSE [id number] 12:25:00 Test Item Value Reference Range Interpretation Comments POC-GLUCOSE METER 164 mg/dL 70-110 H : TESTED A T [facility] [address] (BEAKER) (test code [facility], = 1538) [place] [address]: National Account Manager/Techni garett ID = [id number] for Natividad Gregory COMPREHENSIVE METABOLIC [id number] 06:14:00 Test Item Value Reference Range Interpretation [...] S NOT APPLICABLE FOR DIALYSIS PATIEN TS. National Account Manager ID - RESORIANPOCT-GLUCOSE [id number] 05:44:00 Test Item Value Reference Range Interpretation Comments POC-GLUCOSE METER 115 mg/dL 70-110 H : TESTED A T [facility] 1317 ([facility]) (test code [facility], = 1538) [place] [address]: National Account Manager/Techni garett ID = [id number] for Emmy mamadou, Ayinor POCT-GLUCOSE [id number] 05:32:00 Test Item Value Reference Range Interpretation Comments POC-GLUCOSE METER 112 mg/dL 70-110 H : Notified RN/MD: TESTED ([facility]) (test code AT [facility] [address] = 1538) [place] [address]: National Account Manager/Techni garett ID = [id number] for Repa rama, Ksenia POCT-GLUCOSE [id number] 05:29:00 Test Item Value Reference Range Interpretation Comments POC-GLUCOSE METER 139 mg/dL 70-110 H : Notified RN/MD: TESTED ([facility]) (test code AT [facility] [address] = 1538) [place] [address]: National Account Manager/Techni garett ID = [id number] for Repa rama, Ksenia POCT-GLUCOSE [id number] 05:16:00 Test Item Value Reference Range Interpretation Comments POC-GLUCOSE METER 107 mg/dL 70-110 : TESTED A T [facility] [address] (BEAKER) (test code [address], = 1538) [facility] 77 [address]: National Account Manager/Techni garett ID = [id number] for Odessa Rainey POCT-GLUCOSE [id number] 04:51:00 Test Item Value Reference Range Interpretation Comments POC-GLUCOSE METER 169 mg/dL 70-110 H : TESTED A T [facility] [address] (BEAKER) (test code [address], = 1538) [facility] 77 [address]: National Account Manager/Techni garett ID = [id number] for Emil Tucker CBC W/PLT COUNT & AUTO [id number] 10:08:00 Test Item Value Reference Range Interpretation Comments WHITE BLOOD CELL COUNT (BEAKER) 15.6 K/ L 4.0-10.0 H (test code = 775) RED BLOOD CELL COUNT (BEAKER) 3.12 M/ L 4.20-5.80 L (test code [...] PERCENT (BEAKER) (test code = 2801) POCT-GLUCOSE [id number] 20:59:00 Test Item Value Reference Range Interpretation Comments POC-GLUCOSE METER 196 mg/dL 70-110 H : Notified RN/MD: TESTED (BEAKER) (test code AT [facility] [address] = 1538) [place] [address]: National Account Manager/Techni garett ID = [id number] for Odessa Rainey POCT-GLUCOSE [id number] 16:29:00 Test Item Value Reference Range Interpretation Comments POC-GLUCOSE METER 169 mg/dL 70-110 H : [facility] (BEAKER[facility] (test code [facility], = 1538) [place] [address]: National Account Manager/Techni garett ID = [id number] for Emmy cedillo, Ayinor POCT-GLUCOSE [id number] 11:18:00 Test Item Value Reference Range Interpretation Comments POC-GLUCOSE METER 197 mg/dL 70-110 H : [facility] (BEAKER) (test code [facility], = 1538) [place] [address]: National Account Manager/Techni garett ID = [id number] for Emmy mamadou, Ayinor POCT-GLUCOSE [id number] 05:47:00 Test Item Value Reference Range Interpretation Comments POC-GLUCOSE METER 116 mg/dL 70-110 H : Notified RN/MD: TESTED (BEAKER) (test code AT [facility] [address] = 1538) [facility] [address]: National Account Manager/Techni garett ID = [id number] for Mary Martinez COMPREHENSIVE METABOLIC [id number] 05:16:00 Test Item Value Reference Range Interpretation [...] S NOT APPLICABLE FOR DIALYSIS PATIEN TS. National Account Manager ID - JUSTINCBC W/PLT COUNT & AUTO [id number] 04:55:00 Test Item Value Reference Range Interpretation [...] IMMATURE GRANULOCYTES-RELATIVE 1 % 0-0 H PERCENT ([facility]) (test code = 2801) POCT-GLUCOSE [id number] 20:40:00 Test Item Value Reference Range Interpretation Comments POC-GLUCOSE METER 119 mg/dL 70-110 H : Notified RN/MD: TESTED ([facility]) (test code AT [facility] [address] [place] [address] = 1538) [place] [address]: National Account Manager/Techni garett ID = [id number] for Otac Aurea miramontes POCT-GLUCOSE [id number] 16:53:00 Test Item Value Reference Range Interpretation Comments POC-GLUCOSE METER 236 mg/dL 70-110 H : TESTED A T [facility] 1317 ([facility]) (test code [facility], = 1538) [place] [address]: National Account Manager/Techni garett ID = [id number] for Tolo , Chisa POCT-GLUCOSE [id number] 11:39:00 Test Item Value Reference Range Interpretation Comments POC-GLUCOSE METER 171 mg/dL 70-110 H : TESTED A T [facility] 1317 ([facility]) (test code [facility], = 1538) [place] [address]: National Account Manager/Techni garett ID = [id number] for Tolo , Chisa POCT-GLUCOSE [id number] 06:07:00 Test Item Value Reference Range Interpretation Comments POC-GLUCOSE METER 140 mg/dL 70-110 H : Notified RN/MD: TESTED ([facility]) (test code AT [facility] [address] [place] [address] = 1538) [place] [address]: National Account Manager/Techni garett ID = [id number] for Jarredaugustin Mary CBC W/PLT COUNT & AUTO [id number] 04:32:00 Test Item Value Reference Range Interpretation Comments WHITE BLOOD CELL COUNT (AKER) 19.8 K/ L 4.0-10.0 H (test code = 775) RED BLOOD CELL COUNT (AKER) 3.38 M/ L 4.20-5.80 L (test code = 761) HEMOGLOBIN (AKER) (test code = 8.7 GM/DL 13.0-16.8 L [...] (BEAKER) (test code = 2801) COMPREHENSIVE METABOLIC [id number] 04:30:00 Test Item Value Reference Range Interpretation [...] S NOT APPLICABLE FOR DIALYSIS PATIEN TS. National Account Manager ID - [id number] Leuko-Red [id number] 23:54:00 Test Item Value Reference Range Interpretation Comments CROSSMATCH (test code = 2264) COMPATIBLE Unit ABO (test code = O Pos 5838352) UNIT NUMBER (test code = [id number] 934-0) Status (test code = 2255505) TX_TIMEINCHART Blood Bank Product (test code RED BLOOD CELLS = 2263) PRODUCT CODE (test code = S8620F67 933-2) [facility] Culture - Rule Out Line Infection (Central Line)2019-10-16 22:00:00 Test Item Value Reference Range Interpretation Comments Result (test code = No growth in 5 days 6463-4) [facility] CenterBLOOD [id number] 22:00:00 Test Item Value Reference Range Interpretation Comments CULTURE (BEAKER) (test No growth in 5 days code = 1095) POCT-GLUCOSE [id number] 21:16:00 Test Item Value Reference Range Interpretation Comments POC-GLUCOSE METER 158 mg/dL 70-110 H : Notified RN/MD: TESTED (BEAKER) (test code AT [facility] [address] = 1538) [place] [address]: National Account Manager/Techni garett ID = [id number] for Mary Dixon POCT-GLUCOSE [id number] 17:33:00 Test Item Value Reference Range Interpretation Comments POC-GLUCOSE METER 117 mg/dL 70-110 H : [facility] ([facility]ER[facility] (test code [facility], = 1538) [place] [address]: National Account Manager/Techni garett ID = [id number] for Tolo , Chisa POCT-GLUCOSE [id number] 11:56:00 Test Item Value Reference Range Interpretation Comments POC-GLUCOSE METER 124 mg/dL 70-110 H : [facility] (BEAKER) (test code [address] [facility], = 1538) [place] [address]: National Account Manager/Techni garett ID = [id number] for Tolo , Chisa [id number] 08:35:00 Test Item Value Reference Range Interpretation Comments Lipase (test code = 87 U/L 6-51 H 3040-3) LISET (test code = LISET) National Account Manager ID - [id number] Lab Interpretation (test Abnormal code = 81660-7) [facility] CenterLIPASE2020-08-12 08:35:00 Test Item Value Reference Range Interpretation Comments LIPASE (BEAKER) (test code = 749) 87 U/L 6-51 H National Account Manager ID - [id number] [id number] 06:17:00 Test Item Value Reference Range Interpretation Comments POC-GLUCOSE METER 118 mg/dL 70-110 H : Notified RN/MD: TESTED (BEAKER) (test code AT [facility] [address] = 1538) [address], [facility] [address]: National Account Manager/Techni garett ID = [id number] for Mary Dixon COMPREHENSIVE METABOLIC [id number] 06:02:00 Test Item Value Reference Range Interpretation [...] S NOT APPLICABLE FOR DIALYSIS PATIEN TS. National Account Manager ID - [id number] W/PLT COUNT & AUTO [id number] 05:48:00 Test Item Value Reference Range Interpretation [...] PERCENT (BEAKER) (test code = 2801) POCT-GLUCOSE [id number] 21:00:00 Test Item Value Reference Range Interpretation Comments POC-GLUCOSE METER 148 mg/dL 70-110 H : Notified RN/MD: TESTED (BEAKER) ([facility] [address] = 1538) [place] [address]: National Account Manager/Techni garett ID = [id number] for Mary Dixon POCT-GLUCOSE [id number] 16:15:00 Test Item Value Reference Range Interpretation Comments POC-GLUCOSE METER 173 mg/dL 70-110 H : [facility] (BEAKER) (test code [address] [facility], = 1538) [place] [address]: National Account Manager/Techni garett ID = [id number] for Natividad Gregory POCT-GLUCOSE [id number] 12:17:00 Test Item Value Reference Range Interpretation Comments POC-GLUCOSE METER 207 mg/dL 70-110 H : [facility] (BEAKER) (test code [address] [facility], = 1538) [place] [address]: National Account Manager/Techni garett ID = [id number] for Ellie Pedersen ABORElenita, [id number] 09:50:00 Test Item Value Reference Range Interpretation Comments ABO Grouping (test code O = 2588) Rh Factor (test code = POS 2019 @ 0931 PINK 2589) TOP [id number] 3 [facility] CenterType and screen, [id number] 09:27:00 Test Item Value Reference Range Interpretation Comments ABO/RH AUTOMATED (BEAKER) (test O POSITIVE code = 2260) Ab Scrn (test code = 890-4) NEGATIVE [facility] CenterLIPASE2020-08-11 09:07:00 Test Item Value Reference Range Interpretation Comments LIPASE (BEAKER) (test code = 749) 98 U/L 6-51 H National Account Manager ID - [id number] 08:58:00 Test Item Value Reference Range Interpretation Comments Amylase (test code = 79 U/L 30-110 1798-8) LISET (test code = LISET) National Account Manager ID - [id number] Lab Interpretation (test Normal code = 46982-2) [facility] CenterAMYLASE2020-08-11 08:58:00 Test Item Value Reference Range Interpretation Comments AMYLASE (BEAKER) (test code = 349) 79 U/L 30-110 National Account Manager ID - [facility] Metabolic [id number] 06:46:00 Test Item Value Reference Range Interpretation Comments Sodium (test code = 138 meq/L 576-928 4902-2) Potassium (test code = 3.9 meq/L 3.6-5.5 2823-3) Chloride (test code = 99 meq/L 98-106 2075-0) CO2 (test code = 25 meq/L 20-29 2028-9) BUN (test code = 20 mg/dL 10-26 3094-0) Creatinine (test code 4.87 mg/dL 0.5-1.2 H = 2160-0) Glucose (test code = 137 mg/dL 70-110 H 2345-7) Calcium (test code = 7.9 mg/dL 8.5-10.5 L 68258-2) EGFR (test code = 15 mL/min/1.73 [place] [address]-2) NOT ACCURATE CREATININE CLEARANCE IN PREDICTING GLOMERULAR FILTRATION RATE . ESTIMATED GFR I S NOT APPLICABLE FOR DIALYSIS PATIENTS. LISET (test code = LISET) National Account Manager ID - [id number] Lab Interpretation Abnormal (test code = 38533-7) [facility] METABOLIC [id number] 06:46:00 Test Item Value Reference Range Interpretation Comments SODIUM (BEAKER) 138 meq/L 135-148 (test code = 381) POTASSIUM (BEAKER) 3.9 meq/L 3.6-5.5 (test code = 379) CHLORIDE (BEAKER) 99 meq/L 98-106 (test code = 382) CO2 (BEAKER) (test 25 meq/L 20-29 code = 355) BLOOD UREA NITROGEN 20 mg/dL 10- (BEAKER) (test code = 354) CREATININE (BEAKER) [...] S NOT APPLICABLE FOR DIALYSIS PATIEN TS. National Account Manager ID - [id number] W/PLT COUNT & AUTO [id number] 06:29:00 Test Item Value Reference Range Interpretation [...] ABSOLUTE COUNT 0.54 K/ L 0.00-0.50 H ([facility]) (test code = 416) BASOPHILS ABSOLUTE COUNT ([facility]) 0.07 K/ L 0.00-0.20 (test code = 417) IMMATURE GRANULOCYTES-RELATIVE 2 % 0-0 H PERCENT ([facility]) (test code = 2801) POCT-GLUCOSE [id number] 05:37:00 Test Item Value Reference Range Interpretation Comments POC-GLUCOSE METER 127 mg/dL 70-110 H : Notified RN/MD: TESTED ([facility]) (test code AT [facility] [address] = 1538) [place] [address]: National Account Manager/Techni garett ID = [id number] for Mary Dixon POCT-GLUCOSE [id number] 21:22:00 Test Item Value Reference Range Interpretation Comments POC-GLUCOSE METER 140 mg/dL 70-110 H : TESTED A T [facility] 1317 ([facility]) (test [facility], = 1538) [place] [id number]: National Account Manager/Techni garett ID = [id number] for Denise Alvae POCT-GLUCOSE [id number] 18:24:00 Test Item Value Reference Range Interpretation Comments POC-GLUCOSE METER 115 mg/dL 70-110 H : Notified RN/MD: TESTED ([facility]) (test code AT [facility] [address] = 1538) [place] [address]: National Account Manager/Techni garett ID = [id number] for Ksenia German RAD, CHEST, 1 VIEW, NON [id number] 14:11:00Reason for exam:- >dyspneaShould this be performed at the bedside?->YesFINAL REPORT CHEST AP PORTABLE SEMIERECT History provided: Dyspnea Comparison exam: CT performed five days ago Right hemidiaphragm elevated. Mild atelectatic change at the right base. Lungs otherwise clear and vascularity normal. Signed: Aydin Cisneros MDReport Verified Date/Time: 10/14/2019 14:11:06 Reading Location: [facility] Radiology Reading Room POCT-GLUCOSE [id number] 11:13:00 Test Item Value Reference Range Interpretation Comments POC-GLUCOSE METER 213 mg/dL 70-110 H : Notified RN/MD: TESTED (BEAKER) (test code AT [address] = 1538) [facility], [facility] [address]: National Account Manager/Techni garett ID = [id number] for Ksenia German POCT-GLUCOSE [id number] 06:59:00 Test Item Value Reference Range Interpretation Comments POC-GLUCOSE METER 164 mg/dL 70-110 H : TESTED A T [address] (BEAKER) (test code [address], = 1538) [place] [address]: National Account Manager/Techni garett ID = [id number] for Maame Rosario BASIC METABOLIC [id number] 06:17:00 Test Item Value Reference Range Interpretation [...] S NOT APPLICABLE FOR DIALYSIS PATIEN TS. National Account Manager ID - RESORIANPOCT-GLUCOSE [id number] 21:06:00 Test Item Value Reference Range Interpretation Comments POC-GLUCOSE METER 156 mg/dL 70-110 H : TESTED A T [address] (BEAKER) (test code [address], = 1538) [place] [address]: National Account Manager/Techni garett ID = [id number] for Chloe Page BLOOD [id number] 19:00:00 Test Item Value Reference Range Interpretation Comments CULTURE (BEAKER) (test No growth in 5 days code = 1095) BLOOD [id number] 19:00:00 Test Item Value Reference Range Interpretation Comments CULTURE (BEAKER) (test No growth in 5 days code = 1095) POCT-GLUCOSE [id number] 16:38:00 Test Item Value Reference Range Interpretation Comments POC-GLUCOSE METER 204 mg/dL 70-110 H : TESTED A T [address] (BEAKER) (test code [address], = 1538) [place] [address]: National Account Manager/Techni garett ID = [id number] for Aleksandra Maloney POCT-GLUCOSE [id number] 12:33:00 Test Item Value Reference Range Interpretation Comments POC-GLUCOSE METER 260 mg/dL 70-110 H : TESTED A T [address] (BEAKER) (test code [address], = 1538) [place] [address]: National Account Manager/Techni garett ID = [id number] for Tolo Aleksandra [id number] 06:35:00 Test Item Value Reference Range Interpretation Comments Procalcitonin (test code = 0.57 ng/mL <0.05 H 39646-0) LISET (test code = LISET) SEPSIS RISK (ng/mL)Low: 0.05-0.50Intermedi ate: 0.51-2.00High: >=2.01 Lab Interpretation (test Abnormal code = 77725-2) [facility] CenterPROCALCITONIN2020-08-09 06:35:00 Test Item Value Reference Range Interpretation Comments PROCALCITONIN (BEAKER) (test code 0.57 ng/mL <0.05 H = 3036) SEPSIS RISK (ng/mL)Low: 0.05-0.50Intermediate: 0.51-2.00High: >=2.01POCT-GLUCOSE [id number] 06:24:00 Test Item Value Reference Range Interpretation Comments POC-GLUCOSE METER 141 mg/dL 70-110 H : Notified RN/MD: TESTED (BEAKER) (test code AT [facility] [address] = 1538) [place] [address]: National Account Manager/Techni garett ID = [id number] for Mary Dixon BASIC METABOLIC [id number] 05:45:00 Test Item Value Reference Range Interpretation [...] S NOT APPLICABLE FOR DIALYSIS PATIEN TS. National Account Manager ID - [id number]9-02 05:36:00 Test Item Value Reference Range Interpretation Comments Triglycerides (test 413 mg/dL code = 2571-8) LISET (test code = LISET) TRIGLYCERIDE REFERENCE RANGELow Risk <150Borderline Risk 150-199High Risk 200-499Very High Risk >=500Operator ID - RESORIANOperator ID - RESORIANOperator ID - RESORIANOperator ID - RESORIAN [facility] CenterTRIGLYCERIDES2020-08-09 05:36:00 Test Item Value Reference Range Interpretation Comments TRIGLYCERIDES (BEAKER) (test code = 413 mg/dL 540) TRIGLYCERIDE [...] 430 K/CU MM MPV (test code = 86067-9) 10.3 fL 6-11.5 nRBC (test code = 413) 0 0- 0 /100 WBC Lab Interpretation (test code = Abnormal 05463-8) [facility] CenterCBC (HEMOGRAM ONLY)2019-10-13 05:27:00 Test Item Value Reference [...] 0-0 (BEAKER) (test code = 413) POCT-GLUCOSE [id number] 20:47:00 Test Item Value Reference Range Interpretation Comments POC-GLUCOSE METER 186 mg/dL 70-110 H : Notified RN/MD: TESTED ([facility]) (test code AT [facility] [address] [place] [address] = 1538) [place] [address]: National Account Manager/Techni garett ID = [id number] for Mary Dixon POCT-GLUCOSE [id number] 16:44:00 Test Item Value Reference Range Interpretation Comments POC-GLUCOSE METER 190 mg/dL 70-110 H : [facility]) (test code [facility] NT [facility], = 1538) [place] [id number]: National Account Manager/Techni garett ID = [id number] for Katheryn Tuckerr POCT-GLUCOSE [id number] 12:08:00 Test Item Value Reference Range Interpretation Comments POC-GLUCOSE METER 194 mg/dL 70-110 H : [facility] ([facility]) (test code [facility] NT [facility], = 1538) [place] [id number]: National Account Manager/Techni garett ID = [id number] for Katheryn Tuckerr [id number] 06:03:00 Test Item Value Reference Range Interpretation Comments LIPASE (BEAKER) (test code = 749) 100 U/L 6-51 H National Account Manager ID - [id number] 06:02:00 Test Item Value Reference Range Interpretation Comments Magnesium (test code = 1.7 mg/dL 1.5-3 87816-0) LISET (test code = LISET) National Account Manager ID - [id number] Lab Interpretation (test Normal code = 15582-9) [facility] CenterPOCT-[facility]SE [id number] 06:02:00 Test Item Value Reference Range Interpretation Comments POC-GLUCOSE METER 116 mg/dL 70-110 H : Notified RN/MD: TESTED (BEAKER) (test code AT [facility] [address] [facility] = 1538) [place] [address]: National Account Manager/Techni garett ID = [id number] for Mary Martinez [id number] 06:02:00 Test Item Value Reference Range Interpretation Comments MAGNESIUM (BEAKER) (test code = 1.7 mg/dL 1.5-3.0 627) National Account Manager ID - [id number] 05:54:00 Test Item Value Reference Range Interpretation Comments AMYLASE (BEAKER) (test code = 349) 75 U/L 30-110 National Account Manager ID - [id number] [id number] 20:49:00 Test Item Value Reference Range Interpretation Comments POC-GLUCOSE METER 189 mg/dL 70-110 H : Notified RN/MD: TESTED (BEAKER) (test code AT [facility] [address] = 1538) [place] [address]: National Account Manager/Techni garett ID = [id number] for Mary Martinez POCT-GLUCOSE [id number] 17:10:00 Test Item Value Reference Range Interpretation Comments POC-GLUCOSE METER 117 mg/dL 70-110 H : [facility] (BEAKER) (test code [address] [facility], = 1538) [place] [address]: National Account Manager/Techni garett ID = [id number] for Tolo , Chisa POCT-GLUCOSE [id number] 12:22:00 Test Item Value Reference Range Interpretation Comments POC-GLUCOSE METER 150 mg/dL 70-110 H : TESTED A T [facility] [address] (BEAKER) (test code [address] [facility], = 1538) [place] [address]: National Account Manager/Techni garett ID = [id number] for Tolo , Chisa Manual [id number] 06:37:00 Test Item Value Reference Range Interpretation [...] moderate Lab Interpretation (test code = Abnormal 10183-9) [facility] W/PLT COUNT & AUTO [id number] 06:37:00 Test Item Value Reference Range Interpretation [...] (BEAKER) (test code = 2+ moderate 963) [id number] 06:05:00 Test Item Value Reference Range Interpretation Comments LIPASE (BEAKER) (test code = 749) 105 U/L 6-51 H National Account Manager ID - ADMINCOMPREHENSIVE METABOLIC [id number] 06:05:00 Test Item Value Reference Range Interpretation [...] S NOT APPLICABLE FOR DIALYSIS PATIEN TS. National Account Manager ID - [id number] 06:03:00 Test Item Value Reference Range Interpretation Comments MAGNESIUM (BEAKER) (test code = 1.9 mg/dL 1.5-3.0 627) National Account Manager ID - [id number] 05:56:00 Test Item Value Reference Range Interpretation Comments AMYLASE (BEAKER) (test code = 349) 80 U/L 30-110 National Account Manager ID - ADMINPOCT-GLUCOSE [id number] 05:50:00 Test Item Value Reference Range Interpretation Comments POC-GLUCOSE METER 178 mg/dL 70-110 H : Notified RN/MD: TESTED (LEYLA) (test code AT [facility] [address] = 1538) [place] [address]: National Account Manager/Techni garett ID = [id number] for Mary Martinez POCT-GLUCOSE [id number] 20:45:00 Test Item Value Reference Range Interpretation Comments POC-GLUCOSE METER 138 mg/dL 70-110 H : Notified RN/MD: TESTED (LEYLA) (test code AT [facility] [address] = 1538) [place] [address]: National Account Manager/Techni garett ID = [id number] for Mary Martinez Hepatitis B core antibody, [id number] 19:23:00 Test Item Value Reference Range Interpretation Comments Hep B Core Total Ab (test Nonreactive Nonreactive code = 83845-1) LISET (test code = LISET) National Account Manager ID - DB Lab Interpretation (test Normal code = 56848-2) [facility] CenterHEPATITIS B CORE ANTIBODY, [id number] 19:23:00 Test Item Value Reference Range Interpretation Comments HEPATITIS B CORE TOTAL ANTIBODY Nonreactive Nonreactive (AKILAKER) (test code = 497) National Account Manager ID - DBPOCT-GLUCOSE [id number] 16:27:00 Test Item Value Reference Range Interpretation Comments POC-GLUCOSE METER 161 mg/dL 70-110 H : [facility] (BEAKER) (test code [address], = 1538) [facility] [address]: National Account Manager/Techni garett ID = [id number] for Emil Tucker POCT-GLUCOSE [id number] 11:16:00 Test Item Value Reference Range Interpretation Comments POC-GLUCOSE METER 167 mg/dL 70-110 H : TESTED A T [facility] [address] (BEAKER) (test code [address], = 1538) [place] [address]: National Account Manager/Techni garett ID = [id number] for Ellie Pedersen CBC W/PLT COUNT & AUTO [id number] 06:49:00 Test Item Value Reference Range Interpretation [...] code = 1+ few 963) COMPREHENSIVE METABOLIC [id number] 06:13:00 Test Item Value Reference Range Interpretation [...] S NOT APPLICABLE FOR DIALYSIS PATIEN TS. National Account Manager ID - [id number] 06:13:00 Test Item Value Reference Range Interpretation Comments LIPASE (BEAKER) (test code = 749) 116 U/L 6-51 H National Account Manager ID - [id number] 06:12:00 Test Item Value Reference Range Interpretation Comments MAGNESIUM (BEAKER) (test code = 1.9 mg/dL 1.5-3.0 627) National Account Manager ID - [id number] 06:04:00 Test Item Value Reference Range Interpretation Comments AMYLASE (BEAKER) (test code = 349) 91 U/L 30-110 National Account Manager ID - [id number]-TIPYIPL [id number] 05:34:00 Test Item Value Reference Range Interpretation Comments POC-GLUCOSE METER 151 mg/dL 70-110 H : TESTED A T [facility] [address] (BEAKER) (test code [address], = 1538) [place] [id number]: National Account Manager/Techni garett ID = [id number] for Puneet ph, Civy POCT-GLUCOSE [id number] 20:56:00 Test Item Value Reference Range Interpretation Comments POC-GLUCOSE METER 173 mg/dL 70-110 H : TESTED A T [facility] [address] (BEAKER) (test code [address], = 1538) [place] [id number]: National Account Manager/Techni garett ID = [id number] for Puneet ph, Civy POCT-GLUCOSE [id number] 16:53:00 Test Item Value Reference Range Interpretation Comments POC-GLUCOSE METER 267 mg/dL 70-110 H : TESTED A T [facility] [address] (BEAKER) (test code [address], = 1538) [facility] [address]: National Account Manager/Techni garett ID = [id number] for Emil Tucker [id number] 15:35:00 Test Item Value Reference Range Interpretation Comments LIPASE (BEAKER) (test code = 749) 129 U/L 6-51 H National Account Manager ID - [id number] 15:26:00 Test Item Value Reference Range Interpretation Comments AMYLASE (BEAKER) (test code = 349) 85 U/L 30-110 National Account Manager ID - [id number], CHEST, WITH [id number] 14:52:00FINAL REPORT HISTORY : LEUKOCYTOSIS TECHNIQUE : [...] MDReport Verified Date/Time: 10/09/2019 14:52:27 Reading Location: [facility] Radiology Reading Room CT, ABDOMEN 2019-10-09 14:52:00FINAL [...] MDReport Verified Date/Time: 10/09/2019 14:52:27 Reading Location: [facility] Radiology Reading Room CT chest with IV [id number] 14:52:00Interface, External Ris In - 10/09/2019 2:54 [...] MDReport Verified Date/Time: 10/09/2019 14:52:27 Reading Location: [facility] [id number] 14:52:00Interface, External Ris In - 10/09/2019 2:54 [...] fat stranding concerning for acute pancreatitis. No defin ite evidence of abnormal enhancement to suggest necrosis. No organized/drainable peripancreatic fluid collection identified. Small amount of free fluid noted within the abdomen and mild wall thickeningnoted of the duodenum, likely reactive. CT findings suggestive of hepatic steatosis. Signed: Charly Fung MDReport Verified Date/Time: 10/09/2019 14:52:27 Reading Location: [facility] Radiology Reading Room [facility] [id number] 11:32:00 Test Item Value Reference Range Interpretation Comments POC-GLUCOSE METER 293 mg/dL 70-110 H : TESTED A T [facility] 1317 (BEAKER) (test code [facility] NT [facility], = 1538) [facility] [address]: National Account Manager/Techni garett ID = [id number] for Emil Tucker POCT-GLUCOSE [id number] 06:30:00 Test Item Value Reference Range Interpretation Comments POC-GLUCOSE METER 229 mg/dL 70-110 H : Notified RN/MD: TESTED (BEAKER) (test code AT [facility] [address] = 1538) [facility] [address]: National Account Manager/Techni garett ID = [id number] for Mary Dixon CBC W/PLT COUNT & AUTO [id number] 06:15:00 Test Item Value Reference Range Interpretation [...] code 1+ few = 479) COMPREHENSIVE METABOLIC [id number] 05:54:00 Test Item Value Reference Range Interpretation [...] L (test code = 697) AST (SGOT) (AKILAKER) 22 U/L 5-40 (test code = 353) ALT (SGPT) (AKILAKER) 10 U/L 5-50 (test code = 347) EGFR (LEYLA) (test 9 mL/min/1.73 ESTIMAT ED GFR IS code = 1092) sq m NOT ACCURATE CREATININE CLEARANCE IN PREDICTING GLOMERULAR FILTRATION RATE . ESTIMATED GFR I S NOT APPLICABLE FOR DIALYSIS PATIEN TS. National Account Manager ID - AGONZALEZPOCT-GLUCOSE [id number] 21:11:00 Test Item Value Reference Range Interpretation Comments POC-GLUCOSE METER 236 mg/dL 70-110 H : TESTED A T [facility] [address] ([employer]ABLO) (test code [address], = 1538) [facility] [place] [address]: National Account Manager/Techni garett ID = [id number] for Tanmay stollSivajames Clostridium difficile GDH [id number] 19:12:00 Test Item Value Reference Range Interpretation Comments C. Difficle Toxin Negative Negative (test code = 0328272814) C. Difficile GDH Negative Negative No indicati on of Antigen (test code = Clostri dium 9304906147) difficile infection and n o colonization. Discontinue enteric isolati on and therapy. LISET (test code = Testing performed LISET) by Alere Rapid Cassette Assay. For GDH, published sensitivity of the assay is 98.7% compared to cytotoxicity testing. For Toxin AB, published sensitivity is 87.8% and specificity 99.4% compared to cytotoxicity testing.Verificati on of kit performance was done by the [facility] Microbiology Lab prior to clinical use. Lab Interpretation Normal (test code = 08905-7) [facility]. DIFFICILE GDH [id number] 19:12:00 Test Item Value Reference Range Interpretation Comments CDT TOXIN (test code Negative Negative = 6358482446) CDT GDH ANTIGEN (test Negative Negative No ind ication of code = 0369349663) Clostridi um difficile infection and n o colonization. Discontinue ent carmen isolation and t herapy. Testing performed by Alere Rapid Cassette Assay. For GDH, published sensitivity of the assay is 98.7% compared to cytotoxicity testing. For Toxin AB, published sensitivity is 87.8% and specificity 99.4% compared to cytotoxicity testing.Verification of kit performance was done by the [facility] Microbiology Lab prior to clinical use.Urinalysis Microscopic [id number] 17:16:00 Test Item Value Reference Range Interpretation Comments RBC, UA (test code = 799-7) 5-10 /HPF WBC, UA (test code = 92413-4) 5-10 /HPF Bacteria, UA (test code = 68723-9) Rare SQUAMOUS EPITHELIAL (test code = 5-10 /HPF 97796-9) Amorphous Crystals (test code = Moderate 07840-2) Yeast (test code = 50774-3) Few [facility] CenterURINALYSIS [id number] 17:16:00 Test Item Value Reference Range Interpretation Comments RBC UA-MANUAL (BEAKER) (test code = 5-10 /HPF 1659) WBC UA-MANUAL (BEAKER) (test code = 5-10 /HPF 1661) BACTERIA (BEAKER) (test code = 517) Rare SQUAMOUS EPITHELIAL MANUAL (BEAKER) 5-10 /HPF (test code = 1663) AMORPHOUS CRYSTALS (BEAKER) (test Moderate code = 1584) YEAST (BEAKER) (test code = 1585) Few C-Reactive [id number] 17:10:00 Test Item Value Reference Range Interpretation Comments CRP (test code = 676) 20.64 mg/dL 0-0.5 H LISET (test code = LISET) National Account Manager ID - [id number] Lab Interpretation (test Abnormal code = 34783-7) [facility] CenterC-REACTIVE [id number] 17:10:00 Test Item Value Reference Range Interpretation Comments C-REACTIVE PROTEIN (BEAKER) (test 20.64 mg/dL 0.00-0.50 H code = 676) National Account Manager ID - JBERNUrinalysis with Microscopic If [id number] 16:58:00 Test Item Value Reference Range Interpretation Comments Color, UA (test code = 5778-6) Yellow Clarity, UA (test code = 5767-9) Clear Specific [place], UA (test code = 1.010 1.001-1.035 5811-5) pH, UA (test code = 5803-2) 5.5 5.0-8.0 Protein, UA (test code = 30978-9) 30 mg/dL Negative A Glucose, UA (test code = 365) Negative Negative Ketones, UA (test code = 2514-8) Negative Negative Bilirubin, UA (test code = 62059-0) Negative Negative Blood, UA (test code = 15717-7) Small Negative A Nitrite, UA (test code = 5802-4) Negative Negative Leukocytes, UA (test code = 5799-2) Negative Negative Urobilinogen, UA (test code = 0.2 mg/dL 0.2-1 34775-5) Specimen Source (test code = 2795) Lab Interpretation (test code = Abnormal 57612-6) [facility] CenterURINALYSIS WITH MICROSCOPIC IF [id number] 16:58:00 Test Item Value Reference Range Interpretation [...] 463) SOURCE(BEAKER) (test code = 2795) POCT-GLUCOSE [id number] 16:42:00 Test Item Value Reference Range Interpretation Comments POC-GLUCOSE METER 249 mg/dL 70-110 H : Notified RN/MD: TESTED (BEAKER) (test code AT [facility] [address] = 1538) [facility] [address]: National Account Manager/Techni garett ID = [id number] for Repa rama, Ksenia RAD, CHEST, 1 VIEW, NON [id number] 15:04:00Reason for exam:- >PNEUMONIAShould this be performed [...] Quinones MDReport Verified Date/Time:10/08/2019 15:04:41 Reading Location: [facility] Radiology Reading Room POCT-GLUCOSE [id number] 11:26:00 Test Item Value Reference Range Interpretation Comments POC-GLUCOSE METER 277 mg/dL 70-110 H : Notified RN/MD: TESTED (BEAKER) (test code AT [address] PO[address] = 1538) [facility] [address]: National Account Manager/Techni garett ID = [id number] for Ksenia German [id number] 09:40:00 Test Item Value Reference Range Interpretation Comments TRIGLYCERIDES (BEAKER) (test code = 434 mg/dL 540) TRIGLYCERIDE REFERENCE RANGELow Risk <150Borderline Risk 150-199High Risk 200-499Very High Risk>=500Operator ID - JBERNCBC W/PLT COUNT & AUTO [id number] 06:54:00 Test Item Value Reference Range Interpretation [...] code = 1+ few 965) BASIC METABOLIC [id number] 06:24:00 Test Item Value Reference Range Interpretation [...] S NOT APPLICABLE FOR DIALYSIS PATIEN TS. National Account Manager ID - [id number]-OROWQJA [id number] 06:10:00 Test Item Value Reference Range Interpretation Comments POC-GLUCOSE METER 221 mg/dL 70-110 H : Notified RN/MD: TESTED ([facility]) (test code AT [address] = 1538) [place] [address]: National Account Manager/Techni garett ID = [id number] for Mary Dixon POCT-GLUCOSE [id number] 01:11:00 Test Item Value Reference Range Interpretation Comments POC-GLUCOSE METER 165 mg/dL 70-110 H : Notified RN/MD: TESTED ([facility]) (test code AT [address] PO[address] = 1538) [place] [address]: National Account Manager/Techni garett ID = [id number] for Miguelangel Dixonar POCT-GLUCOSE [id number] 21:25:00 Test Item Value Reference Range Interpretation Comments POC-GLUCOSE METER 221 mg/dL 70-110 H : Notified RN/MD: TESTED ([facility]) (test code AT [address] = 1538) [place] [address]: National Account Manager/Techni garett ID = [id number] for Miguelangel Dixonar POCT-GLUCOSE [id number] 17:01:00 Test Item Value Reference Range Interpretation Comments POC-GLUCOSE METER 277 mg/dL 70-110 H : TESTED A T [facility] [address] (BEAKER) (test code [address] [facility], = 1538) [place] [address]: National Account Manager/Techni garett ID = [id number] for Natividad Gregory POCT-GLUCOSE [id number] 12:30:00 Test Item Value Reference Range Interpretation Comments POC-GLUCOSE METER 261 mg/dL 70-110 H : TESTED A T [facility] [address] (BEAKER) (test code [address] NT [facility], = 1538) [place] [address]: National Account Manager/Techni garett ID = [id number] for Kuru wasserman Natividad CBC W/PLT COUNT & AUTO [id number] 07:03:00 Test Item Value Reference Range Interpretation [...] (test code = 1+ few 961) POCT-GLUCOSE [id number] 07:02:00 Test Item Value Reference Range Interpretation Comments POC-GLUCOSE METER 214 mg/dL 70-110 H : TESTED A T [facility] [address] (BEAKER) (test code [address], = 1538) [facility] [address]: National Account Manager/Techni garett ID = [id number] for Nwad iufu, Sarai COMPREHENSIVE METABOLIC [id number] 06:40:00 Test Item Value Reference Range Interpretation [...] S NOT APPLICABLE FOR DIALYSIS PATIEN TS. National Account Manager ID - [id number] 06:26:00 Test Item Value Reference Range Interpretation Comments MAGNESIUM (BEAKER) (test code = 1.8 mg/dL 1.5-3.0 627) National Account Manager ID - [id number] [id number] 03:44:00 Test Item Value Reference Range Interpretation Comments POC-GLUCOSE METER 220 mg/dL 70-110 H : TESTED A T [facility] [address] (BEAKER) (test code [facility] [facility] [address], = 1538) [place] [id number]: National Account Manager/Techni garett ID = [id number] for Nwad iufu, Sarai POCT-GLUCOSE [id number] 03:36:00 Test Item Value Reference Range Interpretation Comments POC-GLUCOSE METER 247 mg/dL 70-110 H : TESTED A T [facility] [address] (BEAKER) (test code [address], = 1538) [place] [address]: National Account Manager/Techni garett ID = [id number] for Nwad iufu, Sarai POCT-GLUCOSE [id number] 22:13:00 Test Item Value Reference Range Interpretation Comments POC-GLUCOSE METER 278 mg/dL 70-110 H : TESTED A T [facility] [address] (BEAKER) (test code [address], = 1538) [place] [address]: National Account Manager/Techni garett ID = [id number] for Tanmay stoll Vicky POCT-GLUCOSE [id number] 16:26:00 Test Item Value Reference Range Interpretation Comments POC-GLUCOSE METER 163 mg/dL 70-110 H : TESTED A T [facility] [address] (BEAKER) (test code [address], = 1538) [place] [id number]: National Account Manager/Techni garett ID = [id number] for David Cammy Hepatitis B surface [id number] 12:34:00 Test Item Value Reference Range Interpretation Comments Hep B S Ab (test code = <8.0 <8.0 mIU/mL 22931-1) LISET (test code = LISET) National Account Manager ID - AARON Dupree Lab Interpretation (test Normal code = 71550-2) [facility] Center[facility]AT[facility] SURFACE [id number] 12:34:00 Test Item Value Reference Range Interpretation Comments HEPATITIS B SURFACE ANTIBODY < mIU/mL <8.0 (BEAKER) (test code = 647) National Account Manager ID - AARON CPOCT-GLUCOSE [id number] 12:26:00 Test Item Value Reference Range Interpretation Comments POC-GLUCOSE METER 113 mg/dL 70-110 H : TESTED A T [facility] [address] (BEAKER) (test code [address], = 1538) [place] [id number]: National Account Manager/Techni garett ID = [id number] for Ali, Cammy POCT-GLUCOSE [id number] 11:14:00 Test Item Value Reference Range Interpretation Comments POC-GLUCOSE METER 118 mg/dL 70-110 H : TESTED A T [facility] [address] (BEAKER) (test code [address], = 1538) [place] [id number]: National Account Manager/Techni garett ID = [id number] for Ali, Cammy POCT-GLUCOSE [id number] 10:09:00 Test Item Value Reference Range Interpretation Comments POC-GLUCOSE METER 137 mg/dL 70-110 H : TESTED A T [facility] [address] (BEAKER) (test code [address], = 1538) [place] [id number]: National Account Manager/Techni garett ID = [id number] for Ali, Cammy Ketone, [id number] 09:37:00 Test Item Value Reference Range Interpretation Comments Ketones, Blood (test code = 1103) 0.1 mmol/L <0.4 Lab Interpretation (test code = Normal 59391-7) [facility] CenterKETONE, [id number] 09:37:00 Test Item Value Reference Range Interpretation Comments KETONES, BLOOD (BEAKER) (test code 0.1 mmol/L <0.4 = 1103) POCT-GLUCOSE [id number] 09:12:00 Test Item Value Reference Range Interpretation Comments POC-GLUCOSE METER 142 mg/dL 70-110 H : TESTED A T [facility] [address] (BEAKER) (test code [address], = 1538) [place] [id number]: National Account Manager/Techni garett ID = [id number] for Ali, Cammy POCT-GLUCOSE [id number] 08:02:00 Test Item Value Reference Range Interpretation Comments POC-GLUCOSE METER 137 mg/dL 70-110 H : TESTED A T [facility] [address] (BEAKER) (test code [address], = 1538) [place] [id number]: National Account Manager/Techni garett ID = [id number] for Cammy Hernandez POCT-GLUCOSE [id number] 06:49:00 Test Item Value Reference Range Interpretation Comments POC-GLUCOSE METER 150 mg/dL 70-110 H : TESTED A T [facility] [address] (BEAKER) (test code [address], = 1538) [place] [id number]: National Account Manager/Techni garett ID = [id number] for Cord Alyssia foster POCT-GLUCOSE [id number] 05:51:00 Test Item Value Reference Range Interpretation Comments POC-GLUCOSE METER 153 mg/dL 70-110 H : TESTED A T [facility] [address] (BEAKER) (test code [address], = 1538) [place] [id number]: National Account Manager/Techni garett ID = [id number] for Cord Alyssia foster CBC W/PLT COUNT & AUTO [id number] 05:41:00 Test Item Value Reference Range Interpretation [...] code = 1+ few 963) BASIC METABOLIC [id number] 05:26:00 Test Item Value Reference Range Interpretation [...] S NOT APPLICABLE FOR DIALYSIS PATIEN TS. National Account Manager ID - [id number]9-54 05:11:00 Test Item Value Reference Range Interpretation Comments Phosphorus (test code = 4.5 mg/dL 2.5-4.5 2777-1) LISET (test code = LISET) National Account Manager ID - SVETLANA Lab Interpretation (test Normal code = 83435-0) [facility] CenterPHOSPHORUS2020-08-02 05:11:00 Test Item Value Reference Range Interpretation Comments PHOSPHORUS (BEAKER) (test code = 4.5 mg/dL 2.5-4.5 604) National Account Manager ID - SVETLANAPOCT-GLUCOSE [id number] 04:43:00 Test Item Value Reference Range Interpretation Comments POC-GLUCOSE METER 151 mg/dL 70-110 H : TESTED A T [facility] [address] (BEAKER) (test code [address], = 1538) [place] [address]: National Account Manager/Techni garett ID = [id number] for Cord es, Alyssia POCT-GLUCOSE [id number] 02:25:00 Test Item Value Reference Range Interpretation Comments POC-GLUCOSE METER 146 mg/dL 70-110 H : TESTED A T [facility] [address] (BEAKER) (test code [address], = 1538) [place] [id number]: National Account Manager/Techni garett ID = [id number] for Cord es, Alyssia POCT-GLUCOSE [id number] 01:14:00 Test Item Value Reference Range Interpretation Comments POC-GLUCOSE METER 137 mg/dL 70-110 H : TESTED A T [facility] [address] (BEAKER) (test code [address], = 1538) [place] [address]: National Account Manager/Techni garett ID = [id number] for Alyssia Shaw BASIC METABOLIC [id number] 00:49:00 Test Item Value Reference Range Interpretation [...] S NOT APPLICABLE FOR DIALYSIS PATIEN TS. National Account Manager ID - AGONZALEZPOCT-GLUCOSE [id number] 00:10:00 Test Item Value Reference Range Interpretation Comments POC-GLUCOSE METER 139 mg/dL 70-110 H : TESTED A T [facility] [address] (BEAKER) (test code [address], = 1538) [place] [address]: National Account Manager/Techni garett ID = [id number] for Cord Alyssia foster POCT-GLUCOSE [id number] 23:10:00 Test Item Value Reference Range Interpretation Comments POC-GLUCOSE METER 107 mg/dL 70-110 : TESTED A T [facility] [address] (BEAKER) (test code [address], = 1538) [place] [address]: National Account Manager/Techni garett ID = [id number] for Cord Alyssia foster POCT-GLUCOSE [id number] 23:07:00 Test Item Value Reference Range Interpretation Comments POC-GLUCOSE METER 97 mg/dL 70-110 : TESTED A T [facility] [address] (BEAKER) (test code = [address], 1538) [place] [address]: National Account Manager/Techni garett ID = [id number] for Alyssia Shaw POCT-GLUCOSE [id number] 21:42:00 Test Item Value Reference Range Interpretation Comments POC-GLUCOSE METER 110 mg/dL 70-110 : TESTED A T [facility] [address] (BEAKER) (test code [address], = 1538) [place] [address]: National Account Manager/Techni garett ID = [id number] for Alyssia Shaw BASIC METABOLIC [id number] 20:59:00 Test Item Value Reference Range Interpretation [...] S NOT APPLICABLE FOR DIALYSIS PATIEN TS. National Account Manager ID - KIMPOCT-GLUCOSE [id number] 20:06:00 Test Item Value Reference Range Interpretation Comments POC-GLUCOSE METER 127 mg/dL 70-110 H : TESTED A T [facility] [address] (BEAKER) (test code [address], = 1538) [place] [address]: National Account Manager/Techni garett ID = [id number] for Mamie Dozier POCT-GLUCOSE [id number] 19:07:00 Test Item Value Reference Range Interpretation Comments POC-GLUCOSE METER 114 mg/dL 70-110 H : [facility] ([facility] (test code [address], = 1538) [facility] [place] [address]: National Account Manager/Techni garett ID = [id number] for Adeline Garnica POCT-GLUCOSE [id number] 18:24:00 Test Item Value Reference Range Interpretation Comments POC-GLUCOSE METER 111 mg/dL 70-110 H : Notified RN/MD: TESTED (BEAKER) (test code AT [address] = [address]38) [address], [facility] [place] [place] [address]: National Account Manager/Techni garett ID = [id number] for Christelle Walker BASIC METABOLIC [id number] 16:57:00 Test Item Value Reference Range Interpretation [...] S NOT APPLICABLE FOR DIALYSIS PATIEN TS. National Account Manager ID - RICARDA, NON-TUNNELED DIALYSIS CATH, [id number] 16:27:00 Reason for exam:->Access for HDFINAL REPORT Non- tunneled Dialysis Catheter Insertion History: Renal failure, need for central venous access. Modality: Fluoroscopy and sonography. Sedation: None. Almond Roaster: Charly Fung MD. Field Clerk: None. Approach: Right internal jugular vein Estimated [...] internal jugular, which was punctured under direct real- time ultrasound guidance with a micropuncture needle. An ultrasound image was saved to PACS. A microwire and sheath were placed. A 0.035 inch wire was placed through the sheath into the IVC. The tract was serially dilated. The 15 cm 13 [place] Trialysis catheter was placed over the wire [...] cavoatrial junction. Impression: Successful[facility]plicated [facility] non-tunneled dialysis (Trialysis) catheter using sonographic and fluoroscopicguidance. The catheter is ready for immediate use. Signed: Charly Fung MDReport Verified Date/Time: 10/05/2019 16:27:11 Reading Location: [facility] P048 Angio Body Reading Room IR non-tunneled dialysis catheter [id number] 16:27:00Interface, External Ris In - 10/05/2019 4:29 PM CDTFINAL REPORT Non-tunneledDialysis Catheter Insertion History: Renal failure, need for central venous access. Modality: Fluoroscopy and sonography. Sedation: None. Almond Roaster: Charly Fung MD. Field Clerk: None. Approach: Right internal jugular vein Estimated [...] sterile sheet to cover the areas of thepatient that were not prepped, and hand hygiene, [...] was serially dilated. The 15 cm 13 [place] Trialysis catheter was placed over the wire [...] MDReport Verified Date/Time: 10/05/2019 16:27:11 Reading Location: [place] [address] Angio Body Reading Room [facility] [id number] 15:56:00 Test Item Value Reference Range Interpretation Comments POC-GLUCOSE METER 133 mg/dL 70-110 H : TESTED A T [facility] [address] (BEAKER) (test code [address], = 1538) [facility] [place] [address]: National Account Manager/Techni garett ID = [id number] for Odessa Castro Hepatitis B surface [id number] 14:18:00 Test Item Value Reference Range Interpretation Comments HBsAg Screen (test code = Nonreactive Nonreactive 5195-3) LISET (test code = LISET) National Account Manager ID - ADMIN Lab Interpretation (test Normal code = 09529-6) [facility] CenterHEPAT[facility]IS B SURFACE [id number] 14:18:00 Test Item Value Reference Range Interpretation Comments HEPATITIS B SURFACE ANTIGEN (2) Nonreactive Nonreactive (BEAKER) (test code = 2585) National Account Manager ID - ADMINBASIC METABOLIC [id number] 14:02:00 Test Item Value Reference Range Interpretation [...] S NOT APPLICABLE FOR DIALYSIS PATIEN TS. National Account Manager ID - ADMINPOCT-GLUCOSE [id number] 12:14:00 Test Item Value Reference Range Interpretation Comments POC-GLUCOSE METER 137 mg/dL 70-110 H : TESTED A T [facility] [address] (BEAKER) (test code [address] [facility], = 1538) [facility] [address]: National Account Manager/Techni garett ID = [id number] for Glen h, Lorita POCT-GLUCOSE [id number] 10:39:00 Test Item Value Reference Range Interpretation Comments POC-GLUCOSE METER 148 mg/dL 70-110 H : Notified RN/MD: TESTED (BEAKER) (test code AT [facility] [address] = 1538) [place] [address]: National Account Manager/Techni garett ID = [id number] for Glen h, Lorita POCT-GLUCOSE [id number] 09:46:00 Test Item Value Reference Range Interpretation Comments POC-GLUCOSE METER 148 mg/dL 70-110 H : Notified RN/MD: TESTED (BEAKER) (test code AT [facility] [address] = 1538) [place] [address]: National Account Manager/Techni garett ID = [id number] for Glen h, Lorita Lipid [id number] 09:39:00 Test Item Value Reference Range Interpretation Comments Triglycerides (test 783 mg/dL code = 2571-8) Cholesterol (test code 230 mg/dL = 2093-3) HDL (test code = 9 mg/dL 5-9) LISET (test code = LISET) Calculated LDL [...] Borderline 130-159 High 160-189 Very High >=190 National Account Manager ID - ADMINOperator ID - ADMINOperator ID - ADMINOperator ID - ADMINOperator ID - ADMINOperator ID - ADMIN [facility] [id number] 09:39:00 Test Item Value Reference Range Interpretation [...] Borderline 130-159 High 160-189 Very High >=190 National Account Manager ID - ADMINOperator ID - ADMINOperator ID - ADMINOperator ID - ADMINOperator ID - ADMINOperator ID - ADMINCBC W/PLT COUNT & AUTO [id number] 08:58:00 Test Item Value Reference Range Interpretation [...] MORPHOLOGY (BEAKER) (test code Normal = 762) [id number] 08:50:00 Test Item Value Reference Range Interpretation Comments Fibrinogen (test code = 960 mg/dL 200-400 H 3255-7) LISET (test code = LISET) Final Information (Auto Output) Lab Interpretation (test Abnormal code = 96675-9) [facility] CenterFIBRINOGEN2020-08-01 08:50:00 Test Item Value Reference Range Interpretation Comments FIBRINOGEN LEVEL (BEAKER) (test 960 mg/dL 200-400 H code = 658) Final Information (Auto Output)COMPREHENSIVE METABOLIC [id number] 08:50:00 Test Item Value Reference Range Interpretation [...] S NOT APPLICABLE FOR DIALYSIS PATIEN TS. National Account Manager ID - [id number] 08:43:00 Test Item Value Reference Range Interpretation Comments MAGNESIUM (BEAKER) (test code = 1.8 mg/dL 1.5-3.0 627) National Account Manager ID - ADMINProthromin time/[id number] 08:41:00 Test Item Value Reference Range Interpretation [...] Output) Lab Interpretation Normal (test code = 58423-3) [facility] CenteraPTT2020-08-01 08:41:00 Test Item Value Reference Range Interpretation Comments PTT (test code = 30.2 23.0- 35.0 sec 35448-2) LISET (test code = LISET) Final Information (Auto Output) Lab Interpretation (test Normal code = 35263-6) [facility] CenterPROTHROMBIN TIME/[id number] 08:41:00 Test Item Value Reference Range Interpretation Comments PROTIME (BEAKER) (test code = 759) 10.6 sec 9.3-12.0 INR (BEAKER) (test code = 370) 1.0 <=5.9 RECOMMENDED COUMADIN/WARFARIN INR THERAPY RANGESSTANDARD DOSE: 2.0 - 3.0 Includes: PROPHYLAXIS forvenous thrombosis, systemic embolization; TREATMENT for venous thrombosis and/or pulmonary embolus.HIGH RISK: Target INR is 2.5-3.5 for patients with mechanical heart valves.Final Information (Auto Output)Final Information (Auto Output)[id number] 08:41:00 Test Item Value Reference Range Interpretation Comments PARTIAL THROMBOPLASTIN TIME (BEAKER) 30.2 sec 23.0-35.0 (test code = 760) Final Information (Auto Output)POCT-GLUCOSE [id number] 08:11:00 Test Item Value Reference Range Interpretation Comments POC-GLUCOSE METER 185 mg/dL 70-110 H : Notified RN/MD: TESTED (BEAKER) (test code AT [address] = 1538) [facility] [address]: National Account Manager/Techni garett ID = [id number] for Glen h Lorita RAD, CHEST, 1 VIEW, NON [id number] 07:32:00Reason for exam:->PULM EDEMAShould this be performed at the bedside?->YesFINAL REPORT Chest, one view. HISTORY: PULM EDEMA COMPARISON: None IMPRESSION: Elevation of the right hemidiaphragm. Central pulmonary venous congestion. No pleural effusion orpneumothorax. The cardiac silhouette is likely magnified by technique. No acute bony abnormality. Signed: Tasneem Ruth MDReport Verified Date/Time: 10/05/2019 07:32:34 Reading Location: [facility] B1 C013Y CT Body Reading Room -GLUCOSE [id number] 07:07:00 Test Item Value Reference Range Interpretation Comments POC-GLUCOSE METER 212 mg/dL 70-110 H : TESTED A T [facility] [address] (BEAKER) (test code [address], = 1538) [place] [address]: National Account Manager/Techni garett ID = [id number] for Zave rGerryubeda POCT-GLUCOSE [id number] 06:11:00 Test Item Value Reference Range Interpretation Comments POC-GLUCOSE METER 221 mg/dL 70-110 H : TESTED A T [facility] [address] (BEAKER) (test code [address], = 1538) [place] [address]: National Account Manager/Techni garett ID = [id number] for Zave r, Zubeda Blood gas, [id number] 05:48:00 Test Item Value Reference Range Interpretation Comments pH, Arterial (test code = 7.24 7.35-7.45 L 4-1) pCO2, Arterial (test code = 23 35- 45 mmHg L 2018-8) pO2, Arterial (test code = 80 80- 90 mmHg 2703-7) O2 Sat, Arterial (test code = 94.2 % 96-97 L 2708-6) HCO3, Arterial (test code = 10 mmol/L 21-29 LL 1960-4) Base Excess, Arterial (test code -16.0 mmol/L -2-3 L = 1925-7) Patient Temperature (test code = 37.0 C 8310-5) FIO2 (test code = 1819) 21 % Lab Interpretation (test code = Abnormal 51479-4) [facility] CenterBLOOD GAS, [id number] 05:48:00 Test Item Value Reference Range Interpretation [...] (test code = 1819) 21.0 % POCT-GLUCOSE [id number] 05:13:00 Test Item Value Reference Range Interpretation Comments POC-GLUCOSE METER 218 mg/dL 70-110 H : TESTED A T [facility] [address] (BEAKER) (test code [address], = 1538) [place] [address]: National Account Manager/Techni garett ID = [id number] for Zave r, Zubeda POCT-GLUCOSE [id number] 04:10:00 Test Item Value Reference Range Interpretation Comments POC-GLUCOSE METER 207 mg/dL 70-110 H : TESTED A T [facility] [address] (BEAKER) (test code [address], = 1538) [place] [address]: National Account Manager/Techni garett ID = [id number] for Zave r, Zubeda POCT-GLUCOSE [id number] 03:07:00 Test Item Value Reference Range Interpretation Comments POC-GLUCOSE METER 207 mg/dL 70-110 H : TESTED A T [facility] [address] (BEAKER) (test code [address], = 1538) [place] [address]: National Account Manager/Techni garett ID = [id number] for Zave r, Zubeda POCT-GLUCOSE [id number] 02:17:00 Test Item Value Reference Range Interpretation Comments POC-GLUCOSE METER 194 mg/dL 70-110 H : TESTED A T [facility] [address] (BEAKER) (test code [address], = 1538) [place] [address]: National Account Manager/Techni garett ID = [id number] for Zave r, Zubeda LIPID [id number] 01:17:00 Test Item Value Reference Range Interpretation [...] Borderline 130-159 High 160-189 Very High >=190 National Account Manager ID - [id number] ID - [id number] ID - [id number] METABOLIC PANEL 2019-10-05 01:17:00 Test Item Value [...] S NOT APPLICABLE FOR DIALYSIS PATIEN TS. National Account Manager ID - [id number] [id number] 01:14:00 Test Item Value Reference Range Interpretation Comments POC-GLUCOSE METER 191 mg/dL 70-110 H : TESTED A T [facility] [address] (BEAKER) (test code [address], = 1538) [facility] [place] [address]: National Account Manager/Techni garett ID = [id number] for Luther Nevarez [id number] 01:07:00 Test Item Value Reference Range Interpretation Comments MAGNESIUM (BEAKER) (test code = 1.9 mg/dL 1.5-3.0 627) National Account Manager ID - [id number]-NGMS8571-86-10 01:01:00 Test Item Value Reference Range Interpretation Comments Glucose (test code = 211 mg/dL 70-110 H 2345-7) LISET (test code = LISET) National Account Manager ID - [id number] Lab Interpretation (test Abnormal code = 78810-1) [facility] CenterGLUCOSE2020-08-01 01:01:00 Test Item Value Reference Range Interpretation Comments GLUCOSE RANDOM (BEAKER) (test code 211 mg/dL 70-110 H = 652) National Account Manager ID - [id number] [id number] 00:54:00 Test Item Value Reference Range Interpretation Comments Hemoglobin A1C (test code 12.5 % 4.3-6.1 H = 4548-4) LISET (test code = LISET) National Account Manager ID - [id number] Lab Interpretation (test Abnormal code = 22171-2) [facility] CenterHEMOGLOBIN [id number] 00:54:00 Test Item Value Reference Range Interpretation Comments HEMOGLOBIN A1C (BEAKER) (test code = 12.5 % 4.3-6.1 H 368) National Account Manager ID - [id number] W/PLT COUNT & AUTO [id number] 00:50:00 Test Item Value Reference Range Interpretation [...] PERCENT (BEAKER) (test code = 2801) POCT-GLUCOSE [id number] 00:08:00 Test Item Value Reference Range Interpretation Comments POC-GLUCOSE METER 181 mg/dL 70-110 H : TESTED A T [facility] [address] (BEAKER) (test code [address], = 1538) [place] [address]: National Account Manager/Techni garett ID = [id number] for Mamie Dozier POCT-GLUCOSE [id number] 23:09:00 Test Item Value Reference Range Interpretation Comments POC-GLUCOSE METER 170 mg/dL 70-110 H : TESTED A T [facility] [address] (BEAKER) (test code [address], = 1538) [place] [address]: National Account Manager/Techni garett ID = [id number] for Luther Nevarez POCT-GLUCOSE [id number] 22:02:00 Test Item Value Reference Range Interpretation Comments POC-GLUCOSE METER 163 mg/dL 70-110 H : TESTED A T [facility] [address] (BEAKER) (test code [address], = 1538) [place] [address]: National Account Manager/Techni garett ID = [id number] for Veronica Hall SARS-CoV2/RT-PCR ([facility])2019-10-02 10:35:00 Test Item Value Reference Range Interpretation Comments SARS-COV2/RT-PCR Negative Not Detected, (test code = Negative, See 28687-4) external report for linked test SARS-COV-2 [facility] PERFORMING LAB (test code = 21739-9) LISET (test code = Negative result for [...] of the Act. Fact Sheet for Healthcare Providers:https://www.[employer]/sites/default/f adan/product/documents/F act_Sheet_HC_Providers_L ehd_LIUG-OeS-8.pdf Fact Sheet for Healthcare Patients:https://www.[employer]/sites/default/fi les/product/documents/Fa ct_Sheet_Patients_Lyra_S ARS-CoV-2.pdf Performing Laboratory:[facility] [place] [address] [facility])2019-10-02 10:35:00 Test Item Value Reference Range Interpretation Comments SARS-COV2/RT-PCR (test Negative Not Detected, Negative, code = 2729215) See external report for linked test SARS-COV-2 PERFORMING LAB [facility] (test code = 6169401) Negative result for this test determines that [...] a nasopharyngeal swab specimen collected from individuals susp ected of COVID-19 by their healthcare provider.This test [...] 564(g) of the Act.Fact Sheet for Healthcare Providers:https://www.E[employer]del.[employer]/sites/default/files/product/documents/Fact_Shee v_CN_Bfejofenn_Ouvz_IXQR-QtU-8.pdfFact Sheet for Healthcare Patients:https://www.[employer].com/sites/default/files/product/ documents/Tyuj_Hfpwk_Oqbftryg_Phbg_TLLH-HlE-7.pdfPerforming Laboratory:[facility] [place] [address]
--- NOTE | 2019-12-01 13:34 | ER ---
Nurse's Notes [facility] Name: Vijay Lwa Age: 24 yrs Sex: Male : 1995 Arrival Date: 12/01/2019 Time: 12:47 Bed 4 Private MD: Diagnosis: Dialysis catheter assessment and management Presentation: 11/30 13:09 Chief complaint: Patient states: Sates, " I was out in the rain a few days ago and the ph dressing on my dialysis catheter got wet and now the dressing is falling off and getting dirty." James catheter to R chest, pt states that it was placed in Aug for dialysis while hospitalized but does not currently receive dialysis. Denies fever, N/V. Coronavirus screen: Client denies travel out of the [place] in the last 14 days. At this time, the client does not indicate any symptoms associated with coronavirus-19. Ebola Screen: No symptoms or risks identified at this time. Initial Sepsis Screen: Does the patient meet any 2 criteria? No. Patient's initial sepsis screen is negative. Does the patient have a suspected source of infection? No. Patient's initial sepsis screen is negative. Risk Assessment: Do you want to hurt yourself or someone else? Patient reports no desire to harm self or others. Onset of symptoms was December 01, 2019. 13:09 Method Of Arrival: Ambulatory ph 13:09 Acuity: SUYAPA 4 ph Historical: - Allergies: 13:15 No Known Allergies; ph - PMHx: 13:15 Diabetes - NIDDM; Hypertension; Hypothyroidism; Kidney failure; ph - Immunization history:: Adult Immunizations unknown. - Social history:: Smoking status: Patient denies any tobacco usage or history of. Screenin:15 Abuse screen: Denies threats or abuse. Denies injuries from another. Nutritional ph screening: No deficits noted. Tuberculosis screening: No symptoms or risk factors identified. Fall Risk None identified. Assessment: 13:15 Reassessment: James catheter to R upper chest, dressing loose and soiled, no purulent ph drainage noted, will remove dressing to fully assess. General: Appears in no apparent distress. comfortable, Behavior is calm, cooperative, appropriate for age, Denies fever, feeling ill. Pain: Denies pain. Neuro: Level of Consciousness is awake, alert, obeys commands, Oriented to person, place, time, situation. Cardiovascular: No deficits noted. Respiratory: No deficits noted. Derm: Skin is healthy with good turgor, Skin is pink, warm \\T\\ dry. Musculoskeletal: Circulation, motion, and sensation intact. Range of motion: intact in all extremities. 13:30 Reassessment: Old dressing removed from the pt's right chest Tessio. Site cleaned using sv sterile technique. Dr Contreras called to bedside to assess the site, ok to dress site. Site is has no sign of redness or swelling. Site covered with sterile dressing. Vital Signs: 13:09 BP 119 / 65; Pulse 86; Resp 18; Temp 98.2; Pulse Ox 100% on R/A; Weight 145.15 kg; ph Height 5 ft. 7 in. (170.18 cm); Pain 0/10; 13:09 Body Mass Index 50.12 (145.15 kg, 170.18 cm) ph ED Course: 12:47 Patient arrived in ED. mr 12:56 Shaka Contreras MD is Attending Physician. kdr 12:57 Taya Richter, RN is Primary Nurse. ph 13:14 Triage completed. ph 13:15 Arm band placed on Patient placed in an exam room, on a stretcher. ph 13:15 Patient has correct armband on for positive identification. Placed in gown. Bed in low ph position. Call light in reach. Side rails up X 1. Pulse ox on. NIBP on. Door closed. Noise minimized. Warm blanket given. 13:39 No provider procedures requiring assistance completed. Patient did not have IV access sv during this emergency room visit. Administered Medications: No medications were administered Outcome: 13:34 Discharge ordered by . kdr 13:39 Patient left the ED. sv Signatures: Irina Galvan RN RN sv Rittger, Kevin, MD MD [facility] [place] Villanueva mr Taya Richter RN RN ph
--- NOTE | 2019-12-01 13:35 | EDPHYS ---
Physician Documentation [facility] Name: Vijay Law Age: 24 yrs Sex: Male : 1995 Arrival Date: 12/01/2019 Time: 12:47 Bed 4 Private MD: ED Physician Shaka Contreras HPI: 11/30 14:45 This 24 yrs old Male presents to ER via Ambulatory with complaints of Dialysis kdr Catheter Problem. 14:45 The patient has a dialysis catheter in the right subclavian area. Type of problem: may kdr be loose. Onset: The symptoms/episode began/occurred just prior to arrival, today. The malfunction was discovered at home. Dialysis schedule: None at this time. Associated signs and symptoms: Pertinent positives: None. Pertinent negatives: fever, swelling, redness in area, bleeding at site. The patient has not experienced similar symptoms in the past. The patient has not recently seen a physician. Historical: - Allergies: 13:15 No Known Allergies; ph - PMHx: 13:15 Diabetes - NIDDM; Hypertension; Hypothyroidism; Kidney failure; ph - Immunization history:: Adult Immunizations unknown. - Social history:: Smoking status: Patient denies any tobacco usage or history of. ROS: 14:45 Constitutional: Negative for fever, chills, and weight loss, Eyes: Negative for injury, kdr pain, redness, and discharge, ENT: Negative for injury, pain, and discharge, Neck: Negative for injury, pain, and swelling, Cardiovascular: Negative for chest pain, palpitations, and edema, Respiratory: Negative for shortness of breath, cough, wheezing, and pleuritic chest pain, Abdomen/GI: Negative for abdominal pain, nausea, vomiting, diarrhea, and constipation, Back: Negative for injury and pain, : Negative for injury, bleeding, discharge, and swelling, MS/Extremity: Negative for injury and deformity, Skin: Negative for injury, rash, and discoloration, Neuro: Negative for headache, weakness, numbness, tingling, and seizure activity. Psych: Negative for depression, anxiety, suicide ideation, homicidal ideation, and hallucinations, Allergy/Immunology: Negative for hives, rash, and allergies, Endocrine: Negative for neck swelling, polydipsia, polyuria, polyphagia, and marked weight changes, Hematologic/Lymphatic: Negative for swollen nodes, abnormal bleeding, and unusual bruising. Exam: 14:45 Constitutional: This is a well developed, well nourished patient who is awake, alert, kdr and in no acute distress. Head/Face: Normocephalic, atraumatic. Eyes: Pupils equal round and reactive to light, extra-ocular motions intact. Lids and lashes normal. Conjunctiva and sclera are non-icteric and not injected. Cornea within normal limits. Periorbital areas with no swelling, redness, or edema. Neck: Trachea midline, no thyromegaly or masses palpated, and no cervical lymphadenopathy. Supple, full range of motion without nuchal rigidity, or vertebral point tenderness. No Meningismus. Cardiovascular: Regular rate and rhythm with a normal S1 and S2. No gallops, murmurs, or rubs. Normal PMI, no JVD. No pulse deficits. Respiratory: Lungs have equal breath sounds bilaterally, clear to auscultation and percussion. No rales, rhonchi or wheezes noted. No increased work of breathing, no retractions or nasal flaring. Abdomen/GI: Soft, non-tender, with normal bowel sounds. No distension or tympany. No guarding or rebound. No evidence of tenderness throughout. Back: No spinal tenderness. No costovertebral tenderness. Full range of motion. Skin: Warm, dry with normal turgor. Normal color with no rashes, no lesions, and no evidence of cellulitis. MS/ Extremity: Pulses equal, no cyanosis. Neurovascular intact. Full, normal range of motion. Neuro: Awake and alert, GCS 15, oriented to person, place, time, and situation. Cranial nerves II-XII grossly intact. Motor strength 5/5 in all extremities. Sensory grossly intact. Cerebellar exam normal. Normal gait. Psych: Awake, alert, with orientation to person, place and time. Behavior, mood, and affect are within normal limits. 14:45 Chest/axilla: Inspection: normal, Except for dialysis catheter in right anterior chest that appears to be anchored in place as expected and without any apparent malfunciton.. Vital Signs: 13:09 BP 119 / 65; Pulse 86; Resp 18; Temp 98.2; Pulse Ox 100% on R/A; Weight 145.15 kg; ph Height 5 ft. 7 in. (170.18 cm); Pain 0/10; 13:09 Body Mass Index 50.12 (145.15 kg, 170.18 cm) ph MDM: 13:34 Patient medically screened. kdr 14:45 Data reviewed: vital signs, nurses notes. Counseling: I had a detailed discussion with kdr the patient and/or guardian regarding: the historical points, exam findings, and any diagnostic results supporting the discharge/admit diagnosis, the need for outpatient follow up. Administered Medications: No medications were administered Disposition: 12/01/19 13:34 Discharged to Home. Impression: Dialysis catheter assessment and management. - Condition is Stable. - Discharge Instructions: Vascular Access for Hemodialysis. - Medication Reconciliation Form, Thank You Letter form. - Follow up: Private Physician; When: 2 - 3 days; Reason: If symptoms return, Further diagnostic work-up, Recheck today's complaints, Continuance of care, Re-evaluation by your physician. - Problem is new. - Symptoms have improved. Signatures: Irina Galvan RN RN sv Shaka Contreras MD MD kdr Taya Richter RN RN ph Corrections: (The following items were deleted from the chart) 13:39 13:34 12/01/2019 13:34 Discharged to Home. Impression: Dialysis catheter assessment and sv management. Condition is Stable. Forms are Medication Reconciliation Form, Thank You Letter, Antibiotic Education, Prescription Opioid Use. Follow up: Private Physician; When: 2 - 3 days; Reason: If symptoms return, Further diagnostic work-up, Recheck today's complaints, Continuance of care, Re-evaluation by your physician. Problem is new. Symptoms have improved. kdr
[2019-12-01 13:49] VITALS: BP 119/65; TEMP 98.2; O2SAT 100
== END 2019-12-01 13:39 | disposition home or self-care (01) ==
LOC: ER 12:45
DX: Z45.2 Encounter for adjustment and management of vascular access device (principal); I12.9 Hypertensive chronic kidney disease with stage 1 through stage 4 chronic kidney disease, or unspecified chronic kidney disease; N18.9 Chronic kidney disease, unspecified
CPT/HCPCS: 99282

== ENCOUNTER 2020-05-03 11:51 | Emergency (ER) | payer SELFPAY ==
--- OUTSIDE RECORDS SUMMARY | 2020-05-03 12:00 | XMS REPORT | Continuity of Care Document ---
:1995 Author Organization [facility] t Address [address] [place] [address] Care Team Providers Name Role Phone Pcp MD Primary Care Physician Unavailable Cecilia Ruano MD Attending Clinician CECILIA RUANO Attending Clinician Unavailable CECILIA RUANO Admitting Clinician Unavailable Problems Condition Condition Condition Status Onset Resolution Last Treating Co mments Source Name Details Category Date Date Treatment Clinician Date Acute Acute Disease Active [facility] renal renal 10[facility]03 [facility] failure [facility] 00 Center Allergies, Adverse Reactions, Alerts This patient has no known allergies or adverse reactions. Social History Social Habit Start Date Stop Date Quantity Comments Source History [facility] Alcohol Std Drinks Medica Center History [facility] B[facility] Sex Assigned At [facility] Center History [facility] 2019-10-05 2019-10-[address] [facility] - Stress 00:00:00 00:00:00 [facility] History [facility] 2019-10-05 2019-10-[address] [facility] - Financial 00:00:00 00:00:00 [facility] Tobacco use and 2019-10-05 2019-10-05 Never used [facility] kes - exposure 00:00:00 00:00:00 [facility] Alcohol intake 2019-10-05 2019-10-05 Current [facility] Luz es - 00:00:00 00:00:00 non-drinker of Medical Ce nter alcohol (finding) History [facility] 2019-10-04 2019-10-[address] [facility] - Alcohol Frequency 00:00:00 00:00:00 Medical Center Smoking Status Start Date Stop Date Source Never smoker [facility] Medications Ordered Filled Start Stop Current Ordering Indication Dosage Frequency Signature Comments Components Source Medication Medication Date Date Medication? Clinician (SIG) Name Name NIFEdipine 2019- No 30mg QD Take [address] (ADALAT CC) 10-23 tablet (30 L ukes - 30 MG 24 hr 00:00: 23:59 mg total) Medical tablet 00 :00 by mouth Center daily for 30 days. carvediloL 2019- No 12.5mg Q.5D Take [address] (COREG) 10-22 tablet [facility] - 12.5 MG 00:00: 23:59 (12.5 mg Medic al tablet 00 :00 total) by Center mouth 2 (two) times daily for 30 days. calcium 2019-2019- No 1000mg Take 2 [facility] carbonate 10-22 tablets [facility] - (TUMS) 500 00:00: 23:59 (1,000 mg M edical mg chewable 00 :00 total) by [facility] tablet mouth 3 (three) times daily as needed for up to 30 days. atorvastati 2019- No 40mg QD Take [address] [facility] n (LIPITOR) 10-22 tablet (40 L ukes - 40 MG 00:00: 23:59 mg total) Medica l tablet 00 :00 by mouth Center nightly for 30 days. insulin 2019- No 15U Q.5D Inject [address] glargine 10-22 Units [facility] - (LANTUS) 00:00: 23:59 subcutaneo Me dical 100 unit/mL 00 :00 usly 2 Center syringe (two) times daily for 30 days Use as directed. metFORMIN 2019- No 500mg Take [address] (GLUCOPHAGE 7-16 - mg by [facility] - ) 500 MG 00:00: 00:00 mouth Medical tablet 00 :00 every 12 Center (twelve) hours. Vital Signs Vital Name Observation Time Observation Value Comments Source Systolic blood 2019-10-23 11:41:00 134 mm[Hg] [facility] pressure [facility] Diastolic blood 2019-10-23 11:41:00 81 mm[Hg] [facility] Heart rate 2019-10-23 11:41:00 94 /min [facility] Body temperature 2019-10-23 11:41:00 36.67 Lillie [facility] Respiratory rate 2019-10-23 11:41:00 20 /min [facility] Oxygen saturation in 2019-10-23 11:41:00 99 /min [facility] Arterial blood by Medical Ce nter Pulse oximetry Body weight 2019-10-23 04:49:00 147.056 kg [facility] BMI 2019-10-23 04:49:00 46.52 kg/m2 [facility] Body height 2019-10-06 17:55:00 177.8 cm [facility] Procedures Procedure Date / Time Performed Performing Clinician [facility] e RHYTHM STRIP - SCAN 2019-11-04 15:20:24 Provider, [facility] RHYTHM STRIP - SCAN 2019-10-29 08:11:16 Provider, Default [facility] RHYTHM STRIP - SCAN 2019-10-29 08:11:15 Provider, Default [facility] RHYTHM STRIP - SCAN 2019-10-29 08:11:13 Provider, [facility] CARDIAC CATH REPORT - 2019-10-29 08:11:11 Provider, [facility] CARDIAC CATH REPORT - 2019-10-29 08:10:59 Provider, [facility] POCT-GLUCOSE METER 2019-10-23 11:14:00 Heidy Ruano [facility] POCT-GLUCOSE METER 2019-10-23 05:48:00 [facility] CBC W/PLT COUNT & AUTO 2019-10-23 05:30:00 Juany Reid [facility] S [facility] COMPREHENSIVE METABOLIC 2019-10-23 05:30:[address] [facility] POCT-GLUCOSE METER 2019-10-22 20:50:00 Heidy Ruano [facility] POCT-GLUCOSE METER 2019-10-22 16:33:00 Heidy Ruano [facility] POCT-GLUCOSE METER 2019-10-22 11:31:00 Johny Ruanofrancesco [facility] CBC W/PLT COUNT & AUTO 2019-10-22 05:54:00 AbileneRehanau [facility] COMPREHENSIVE METABOLIC 2019-10-22 05:54:[address] [facility] POCT-GLUCOSE METER 2019-10-22 05:46:00 Heidy Ruano [facility] POCT-GLUCOSE METER 2019-10-21 20:16:00 [facility] POCT-GLUCOSE METER 2019-10-21 16:54:00 Heidy Ruano [facility] POCT-GLUCOSE METER 2019-10-21 12:34:00 Heidy Ruano [facility] XR CHEST 1 VIEW 2019-10-21 10:17:00 AbileneJuany [facility] PORTABLE/BEDSIDE [facility] POCT-GLUCOSE METER 2019-10-21 06:09:00 Heidy Ruano [facility] CBC W/PLT COUNT & AUTO 2019-10-21 05:59:00 AbileneJuany [facility] METABOLIC 2019-10-21 05:59:00 [facility] POCT-GLUCOSE METER 2019-10-20 21:10:00 Heidy Ruano [facility] HEMODIALYSIS INPATIENT 2019-10-20 16:52:16 Emma Mccurdy [facility] POCT-GLUCOSE METER 2019-10-20 16:33:00 Heidy Ruano [facility] POCT-GLUCOSE METER 2019-10-20 11:54:00 [facility] POCT-GLUCOSE METER 2019-10-20 05:32:00 Heidy Ruano [facility] COMPREHENSIVE METABOLIC 2019-10-20 05:10:[address] [facility] POCT-GLUCOSE METER 2019-10-19 21:31:00 [facility] POCT-GLUCOSE METER 2019-10-19 16:43:00 Alden, [facility] POCT-GLUCOSE METER 2019-10-19 12:46:00 Alden [facility] CBC W/PLT COUNT & AUTO 2019-10-19 09:44:00 Juany Reid [facility] POCT-GLUCOSE METER 2019-10-19 05:52:00 [facility] POCT-GLUCOSE METER 2019-10-18 20:48:00 Alden [facility] POCT-GLUCOSE METER 2019-10-18 16:18:00 Alden [facility] HEMODIALYSIS INPATIENT 2019-10-18 14:19:25 Angie Chin [facility] POCT-GLUCOSE METER 2019-10-18 11:07:00 [facility] POCT-GLUCOSE METER 2019-10-18 05:36:00 Alden [facility] CBC W/PLT COUNT & AUTO 2019-10-18 04:36:00 FranklinJuany [facility] COMPREHENSIVE METABOLIC 2019-10-18 04:36:[address] [facility] POCT-GLUCOSE METER 2019-10-17 20:25:00 Alden [facility] TRANSFUSION SERVICE 2019-10-17 18:06:20 Arianna Aponte [facility] REPORT - SCAN Scanning [facility] POCT-GLUCOSE METER 2019-10-17 16:41:00 Alden [facility] POCT-GLUCOSE METER 2019-10-17 11:27:00 Alden [facility] POCT-GLUCOSE METER 2019-10-17 05:56:00 Alden [facility] CBC W/PLT COUNT & AUTO 2019-10-17 03:40:00 FranklinJuany [facility] S [facility] COMPREHENSIVE METABOLIC 2019-10-17 03:40:[address] [facility] PREPARE LEUKO-REDUCED RBC 2019-10-16 23:54:00 Franklin Juany [facility] POCT-GLUCOSE METER 2019-10-16 21:05:00 [facility] 2019-10-16 18:06:26 Arianna Aponte [facility] REPORT - SCAN Scanning [facility] POCT-GLUCOSE METER 2019-10-16 17:22:00 Heidy Ruano [facility] IR TUNNELED DIALYSIS 2019-10-16 16:41:00 [facility] POCT-GLUCOSE METER 2019-10-16 11:44:00 [facility]EM[facility] INPATIENT 2019-10-16 07:54:33 Elsy [facility] POCT-GLUCOSE METER 2019-10-16 06:06:00 Heidy Ruano [facility] CBC W/PLT COUNT & AUTO 2019-10-16 05:10:00 FranklinJuany [facility] 2019-10-16 05:10:[address] [facility] LIPASE 2019-10-16 05:10:00 FranklinJuany [facility] POCT-GLUCOSE METER 2019-10-15 20:49:00 [facility]idy [facility] TRANSFUSE LEUKO-REDUCED 2019-10-15 17:33:34 FranklinJuany [facility] RED BLOOD CELLS [facility] POCT-GLUCOSE METER 2019-10-15 15:46:00 Heidy Ruano [facility] TRANSFUSE LEUKO-REDUCED 2019-10-15 14:15:02 [facility]LO[facility]LLS [facility] POCT-GLUCOSE METER 2019-10-15 12:05:00 [facility] ABORH, MANUAL 2019-10-15 09:34:00 Lilian Gerardo [facility] TYPE AND SCREEN, 2019-10-15 08:17:[address] [facility] AUTOMATED [facility] BASIC METABOLIC PANEL (7) 2019-10-15 06:14:00 Emma Mccurdy I [facility] CBC W/PLT COUNT & AUTO 2019-10-15 06:14:00 [facility] DIFFERENTIAL [facility] AMYLASE 2019-10-15 06:14:00 AbileneJuany [facility] LIPASE 2019-10-15 06:14:00 Abilene [facility] POCT-GLUCOSE METER 2019-10-15 05:26:00 Heidy Ruano [facility] POCT-GLUCOSE METER 2019-10-14 21:00:00 Heidy Ruano [facility] POCT-GLUCOSE METER 2019-10-14 18:13:00 [facility] XR CHEST 1 VIEW 2019-10-14 14:06:00 AbileneJuany [facility] PORTABLE/BEDSIDE [facility] HEMODIALYSIS INPATIENT 2019-10-14 11:31:03 Emma Mccurdy [facility] POCT-GLUCOSE METER 2019-10-14 11:03:00 [facility] POCT-GLUCOSE METER 2019-10-14 06:48:00 [facility] BASIC METABOLIC PANEL (7) 2019-10-14 05:34:00 Emma Mccurdy [facility] POCT-GLUCOSE METER 2019-10-13 20:55:00 [facility] POCT-GLUCOSE METER 2019-10-13 16:27:00 [facility] POCT-GLUCOSE METER 2019-10-13 12:22:00 [facility] POCT-GLUCOSE METER 2019-10-13 06:13:00 [facility] (HEMOGRAM ONLY) 2019-10-13 05:14:00 Calli [facility] BASIC METABOLIC PANEL (7) 2019-10-13 05:14:00 Emma Mccurdy [facility] TRIGLYCERIDES 2019-10-13 05:14:00 Calli [facility] PROCALCITONIN 2019-10-13 05:14:00 Huangheidyshakeel [facility] POCT-GLUCOSE METER 2019-10-12 20:36:00 Alden Heidy [facility] POCT-GLUCOSE METER 2019-10-12 16:33:00 Heidy Ruano [facility] POCT-GLUCOSE METER 2019-10-12 11:55:00 Heidy Ruano [facility] POCT-GLUCOSE METER 2019-10-12 05:51:00 [facility] MAGNESIUM 2019-10-12 04:42:[address] [facility] AMYLASE 2019-10-12 04:42:[address] [facility] LIPASE 2019-10-12 04:42:00 [facility] POCT-GLUCOSE METER 2019-10-11 20:38:00 Heidy Ruano [facility] BLOOD CULTURE 2019-10-11 18:44:00 Calli [facility] POCT-GLUCOSE METER 2019-10-11 16:59:00 Johny Ruanofrancesco [facility] POCT-GLUCOSE METER 2019-10-11 12:11:00 Alden [facility] POCT-GLUCOSE METER 2019-10-11 05:39:00 [facility] COMPREHENSIVE METABOLIC 2019-10-11 05:32:00 Elevazo [facility] MAGNESIUM 2019-10-11 05:32:00 Elevazo, [facility] AMYLASE 2019-10-11 05:32:00 Elevazo, [facility] LIPASE 2019-10-11 05:32:00 Elevazo, [facility] CBC W/PLT COUNT & AUTO 2019-10-11 05:32:00 Jessica Jimi [facility] (MANUAL DIFFERENTIAL) 2019-10-11 05:32:00 Jessica Ijmi [facility] POCT-GLUCOSE METER 2019-10-10 20:33:00 Alden [facility] POCT-GLUCOSE METER 2019-10-10 16:16:00 Alden [facility] HEPATITIS B CORE 2019-10-10 14:35:00 Calli [facility] POCT-GLUCOSE METER 2019-10-10 11:05:00 Alden [facility] HEMODIALYSIS INPATIENT 2019-10-10 09:49:49 Calli [facility] POCT-GLUCOSE METER 2019-10-10 05:21:00 Alden [facility] CBC W/PLT COUNT & AUTO 2019-10-10 05:10:00 Elevdominga, [facility] COMPREHENSIVE METABOLIC 2019-10-10 05:10:00 Elevazo, [facility] MAGNESIUM 2019-10-10 05:10:00 Elevazo, [facility] AMYLASE 2019-10-10 05:10:00 Elevazo, [facility] LIPASE 2019-10-10 05:10:00 Elevazo, [facility] (MANUAL DIFFERENTIAL) 2019-10-10 05:10:00 Elevazo, [facility] POCT-GLUCOSE METER 2019-10-09 20:44:00 Johny Ruanofrancesco [facility]EM[facility]PATIENT 2019-10-09 18:50:32 Emma Mccurdy [facility] POCT-GLUCOSE METER 2019-10-09 16:41:00 [facility]idy [facility] LIPASE 2019-10-09 15:09:[address] [facility] AMYLASE 2019-10-09 15:09:00 Elevdominga, [facility] CT CHEST WITH IV CONTRAST 2019-10-09 14:18:00 Emma Mccurdy [facility] CT ABDOMEN/PELVIS WITH IV 2019-10-09 14:18:00 Sis Gautam [facility] POCT-GLUCOSE METER 2019-10-09 11:21:00 Johny Ruanofrancesco [facility] POCT-GLUCOSE METER 2019-10-09 06:19:00 Heidy Ruano [facility] CBC W/PLT COUNT & AUTO 2019-10-09 05:09:00 Dain [facility] COMPREHENSIVE METABOLIC 2019-10-09 05:09:00 Dain [facility] (MANUAL DIFFERENTIAL) 2019-10-09 05:09:00 Dain [facility] POCT-GLUCOSE METER 2019-10-08 20:59:00 [facility]idy [facility] BLOOD CULTURE 2019-10-08 17:05:[address] [facility] C-REACTIVE PROTEIN 2019-10-08 16:51:00 Elevazo, [facility] BLOOD CULTURE 2019-10-08 16:51:00 Elevdominga, [facility] URINALYSIS WITH 2019-10-08 16:36:00 Elevdominga [facility] - MICROSCOPIC IF INDICATED [facility] URINALYSIS MICROSCOPIC 2019-10-08 16:36:00 [facility]. DIFFICILE GDH TOXIN 2019-10-08 16:36:00 [facility] POCT-GLUCOSE METER 2019-10-08 16:30:00 Heidy Ruano [facility] XR CHEST 1 VIEW 2019-10-08 13:44:00 Dain [facility] - PORTABLE/BEDSIDE [facility] POCT-GLUCOSE METER 2019-10-08 11:15:00 Heidy Ruano [facility] POCT-GLUCOSE METER 2019-10-08 05:56:00 Heidy Ruano [facility] BASIC METABOLIC PANEL (7) 2019-10-08 05:14:00 Emma Mccurdy [facility] CBC W/PLT COUNT & AUTO 2019-10-08 05:14:00 Dain [facility] DIFFERENTIAL [facility] TRIGLYCERIDES 2019-10-08 05:14:00 Stanislav Ivory [facility] (MANUAL DIFFERENTIAL) 2019-10-08 05:14:00 Dain [facility] POCT-GLUCOSE METER 2019-10-08 01:00:00 Heidy Ruano [facility] POCT-GLUCOSE METER 2019-10-07 21:13:00 Heidy Ruano [facility] POCT-GLUCOSE METER 2019-10-07 16:42:00 [facility] POCT-GLUCOSE METER 2019-10-07 12:16:00 Alden [facility] POCT-GLUCOSE METER 2019-10-07 06:51:00 Heidy Ruano [facility] COMPREHENSIVE METABOLIC 2019-10-07 05:58:00 Heidy Ruanoj [facility] I [facility] CBC W/PLT COUNT & AUTO 2019-10-07 05:58:00 Alden [facility] DI[facility]ENTIAL [facility] MAGNESIUM 2019-10-07 05:58:00 Johny [facility]fr[facility] (MANUAL DIFFERENTIAL) 2019-10-07 05:58:00 Heidy Ruano [facility] POCT-GLUCOSE METER 2019-10-07 03:33:00 Johny Ruanofrancesco [facility] POCT-GLUCOSE METER 2019-10-07 00:14:00 [facility] POCT-GLUCOSE METER 2019-10-06 21:54:00 [facility]en [facility] POCT-GLUCOSE METER 2019-10-06 16:15:00 Heidy Ruano [facility] HEMODIALYSIS INPATIENT 2019-10-06 12:24:52 Neelam [facility] POCT-GLUCOSE METER 2019-10-06 12:15:00 Alden [facility] POCT-GLUCOSE METER 2019-10-06 11:03:00 [facility]en [facility] HEMODIALYSIS INPATIENT 2019-10-06 10:19:34 Calli [facility] POCT-GLUCOSE METER 2019-10-06 09:58:00 Heidy Ruano [facility] KETONE, BLOOD 2019-10-06 09:29:00 Stanislav Ivory [facility] POCT-GLUCOSE METER 2019-10-06 09:01:00 Alden [facility] POCT-GLUCOSE METER 2019-10-06 07:50:00 Alden [facility] POCT-GLUCOSE METER 2019-10-06 06:38:00 Alden [facility] POCT-GLUCOSE METER 2019-10-06 05:40:00 [facility] POCT-GLUCOSE METER 2019-10-06 04:33:00 Alden [facility] CBC W/PLT COUNT & AUTO 2019-10-06 04:28:00 Calli [facility] (MANUAL DIFFERENTIAL) 2019-10-06 04:28:00 [facility] BASIC METABOLIC PANEL (7) 2019-10-06 04:25:00 [facility] PHOSPHORUS 2019-10-06 04:25:00 [facility] POCT-GLUCOSE METER 2019-10-06 02:13:00 Alden, [facility] POCT-GLUCOSE METER 2019-10-06 01:03:00 Alden [facility] POCT-GLUCOSE METER 2019-10-05 23:59:00 Alden, [facility] BASIC METABOLIC PANEL (7) 2019-10-05 23:53:00 Alden, [facility] POCT-GLUCOSE METER 2019-10-05 22:58:00 Alden, [facility] POCT-GLUCOSE METER 2019-10-05 22:24:00 Alden, [facility] POCT-GLUCOSE METER 2019-10-05 21:30:00 Alden [facility] BASIC METABOLIC PANEL (7) 2019-10-05 20:25:00 Alden, [facility] POCT-GLUCOSE METER 2019-10-05 19:55:00 Alden, [facility] POCT-GLUCOSE METER 2019-10-05 18:57:00 Alden, [facility] POCT-GLUCOSE METER 2019-10-05 18:13:00 Alden [facility] POCT-GLUCOSE METER 2019-10-05 15:45:00 Heidy Ruano [facility] IR NON-TUNNELED DIALYSIS 2019-10-05 14:55:00 Stanislav Ivory [facility] - CATHETER INSERTION Medical Cente r BASIC METABOLIC PANEL (7) 2019-10-05 13:20:00 Heidy Ruano [facility] HEPATITIS B SURFACE 2019-10-05 13:20:00 Calli [facility] ukes - ANTIGEN [facility] HEPATITIS B SURFACE 2019-10-05 13:20:00 Cadenndshakeel [facility] ukes ANTIBODY [facility] POCT-GLUCOSE METER 2019-10-05 12:01:00 [facility] POCT-GLUCOSE METER 2019-10-05 10:28:00 Heidy Ruano [facility] HEMODIALYSIS INPATIENT 2019-10-05 09:52:18 Calli [facility] POCT-GLUCOSE METER 2019-10-05 09:35:00 [facility] PROTHROMBIN TIME/INR 2019-10-05 08:09:00 Dianelys Stanislavdario [facility] APTT 2019-10-05 08:09:00 Stanislav Ivory [facility] FIBRINOGEN 2019-10-05 08:09:00 Dianelys Stanislavdario Bang [facility] CBC W/PLT COUNT & AUTO 2019-10-05 08:06:00 Heidy Ruano [facility] DIFFERENTIAL [facility] COMPREHENSIVE METABOLIC 2019-10-05 08:06:00 Heidy Ruano I [facility] MAGNESIUM 2019-10-05 08:06:00 Heidy Ruano [facility] LIPID PANEL 2019-10-05 08:06:00 Emma Mccurdy [facility] (MANUAL DIFFERENTIAL) 2019-10-05 08:06:00 [facility] POCT-GLUCOSE METER 2019-10-05 08:00:00 Alden, Salman [facility] POCT-GLUCOSE METER 2019-10-05 06:56:00 Heidy Ruano [facility] POCT-GLUCOSE METER 2019-10-05 06:00:00 Heidy Ruano [facility] XR CHEST 1 VIEW 2019-10-05 05:35:00 [facility] BLOOD GAS, ARTERIAL 2019-10-05 05:29:00 Calli Francescocristina [facility] POCT-GLUCOSE METER 2019-10-05 05:02:00 Heidy Ruano [facility] POCT-GLUCOSE METER 2019-10-05 03:58:00 Heidy Ruano [facility] POCT-GLUCOSE METER 2019-10-05 02:56:00 Heidy Ruano [facility] POCT-GLUCOSE METER 2019-10-05 02:06:00 Heidy Ruano [facility] POCT-GLUCOSE METER 2019-10-05 01:02:00 [facility] HEMOGLOBIN A1C 2019-10-04 23:57:00 [facility] POCT-GLUCOSE METER 2019-10-04 23:57:00 Heidy Ruano [facility] CBC W/PLT COUNT & AUTO 2019-10-04 23:57:00 [facility] COMPREHENSIVE METABOLIC 2019-10-04 23:57:[address] [facility] MAGNESIUM 2019-10-04 23:57:00 Heidy Ruano [facility] LIPID PANEL 2019-10-04 23:57:00 Heidy Ruano [facility] POCT-GLUCOSE METER 2019-10-04 22:58:00 Heidy Ruano [facility] POCT-GLUCOSE METER 2019-10-04 21:50:00 Heidy Ruano [facility] SARS-COV2/RT-PCR ([facility] & 2019-10-01 16:45:00 [facility] - REF LABS) [facility] Plan of Care Planned Activity Planned Date Details Comments Source Future Scheduled 2022-10-[address] [facility] - Test 00:00:00 (procedure) [code = [facility] 30847860] Future Scheduled 2019-11-05 INFLUENZA VACCINE [facility] - Test 00:00:00 (#1) [code = [facility] INFLUENZA VACCINE (#1)] Results Test Description Test Time Test Comments Results Result Comments Source POC-Glucose meter 2019-10-23 11:25:00 Test Item Value Reference Range Interpretation Comme nts POC-Glucose Meter (test code = 111 mg/dL 70-110 H : TESTED AT [facility] [address]) [facility] [address]: Agricultural Equipment Sales Engineer/Techni garett ID = [id number] for Gauri Corley el Lab Interpretation (test code = Abnormal 61244-5) [facility] [id number] 11:25:00 Test Item Value Reference Range Interpretation Comments POC-GLUCOSE METER 111 mg/dL 70-110 H : TESTED A T [facility] 1317 (BEAKER) (test code [address] [facility] [facility], = 1538) [facility] 77 478: Agricultural Equipment Sales Engineer/Techni garett ID = [id number] for Sarai Solares Comprehensive metabolic [id number] 06:24:00 Test Item Value Reference Range Interpretation Comments Protein, Total (test 8.1 See_Comment [Autom ated code = 2885-2) message] The system which generated this result transmit rian reference range : 6.0 - 8.5 gm/dL . The reference range was not u sed to interpret th is result as normal/abnormal . Albumin (test code = 3.7 g/dL 3.5-5 24703-3) Alkaline Phosphatase 113 U/L 30-115 (test code = 6768-6) Total Bilirubin (test 0.5 mg/dL 0.1-1.2 code = 1975-2) Sodium (test code = 142 meq/L 304-015 8198-2) Potassium (test code 4.7 meq/L 3.6-5.5 = 2823-3) Chloride (test code = 105 meq/L 98-106 2074-0) CO2 (test code = 24 meq/L -2027-9) BUN (test code = 37 mg/dL 10-26 H 3094-0) Creatinine (test code 3.61 mg/dL 0.5-1.2 H = 2160-0) Glucose (test code = 121 mg/dL 70-110 H 2345-7) Calcium (test code = 9.5 mg/dL 8.5-10.5 22566-1) AST (test code = 46 U/L 5-40 H 1920-8) ALT (test code = 25 U/L 5-50 1742-6) EGFR (test code = 21 mL/min/1.73 [place] [address]-1) NOT ACCURATE CREATININE CLEARANCE IN PREDICTING GLOMERULAR FILTRATION RATE . ESTIMATED GFR I S NOT APPLICABLE FOR DIALYSIS PATIEN TS. LISET (test code = LISET) Agricultural Equipment Sales Engineer ID - [id number] Lab Interpretation Abnormal (test code = 63812-8) [facility] [id number] 06:24:00 Test Item Value Reference Range Interpretation [...] = 382) CO2 (BEAKER) (test 24 meq/L code = 355) BLOOD UREA NITROGEN 37 [...] 347) EGFR (BEAKER) (test 21 mL/min/1.73 ESTIMA RIAN GFR IS code = 1092) sq m NOT ACCURATE CREATININE CLEARANCE IN PREDICTING GLOMERULAR FILTRATION RATE . ESTIMATED GFR I S NOT APPLICABLE FOR DIALYSIS PATIEN TS. Agricultural Equipment Sales Engineer ID - JUSTINPOCT-GLUCOSE [id number] 06:11:00 Test Item Value Reference Range Interpretation Comments POC-GLUCOSE METER 115 mg/dL 70-110 H : TESTED A T [facility] 1317 (BEAKER) (test code [address], = 1538) [facility] 77 478: Agricultural Equipment Sales Engineer/Techni garett ID = [id number] for Jennifer Teixeira ph CBC with platelet count + automated [id number] 05:57:00 Test Item Value Reference Range Interpretation Comments WBC (test code = 6690-2) 13.8 See_Comment H [A utomated message] The system [employer] generated this result transmitted ref erence range: 4.0 - 10 .0 K/L. The refe rence range was not u sed to interpret this result as normal/abnor mal. RBC (test code = 789-8) 3.28 See_Comment L [Au tomated message] The system [employer] generated this result transmitted ref erence range: 4.20 - 5 .80 M/L. The refe rence range was not u sed to interpret this result as normal/abnor mal. MCHC (test code = 786-4) 30.7 See_Comment L [A utomated message] The system [employer] generated this result transmitted ref erence range: 32.0 - 3 6.0 GM/DL. The refe rence range was not u sed to interpret this result as normal/abnor mal. Hematocrit (test code = 28.3 % 36-50 L 4544-3) MCV (test code = 787-2) 86.3 fL 82-99 MCH (test code = 785-6) 26.5 pg 27-33 L RDW (test code = 788-0) 15.3 % 12-15 H Platelets (test code = 403 See_Comment [Aut omated message] 777-3) The system [employer] generated this result transmitted ref erence range: 150 - 43 0 K/CU MM. The referen ce range was not u sed to interpret this result as normal/abnor mal. MPV (test code = 9.4 fL 6-11.5 89810-9) nRBC (test code = 413) 0 See_Comment [Aut omated message] The system [employer] generated this result transmitted ref erence range: 0 - 0 /1 00 WBC. The refere nce range was not u sed to interpret this result as normal/abnor mal. % Neutros (test code = 65 % 429) % Lymphs (test code = 21 % 430) % Monos (test code = 7 % 431) % Eos (test code = 432) 5 % % Baso (test code = 437) 1 % # Neutros (test code = 9.00 See_Comment H [Aut omated message] 670) The system [employer] generated this result transmitted ref erence range: 1.80 - 8 .00 K/L. The refe rence range was not u sed to interpret this result as normal/abnor mal. # Lymphs (test code = 2.91 See_Comment [Auto mated message] 414) The system [employer] generated this result transmitted ref erence range: 1.48 - 4 .50 K/L. The refe rence range was not u sed to interpret this result as normal/abnor mal. # Monos (test code = 1.03 See_Comment [Autom ated message] 415) The system [employer] generated this result transmitted ref erence range: 0.00 - 1 .30 K/L. The refe rence range was not u sed to interpret this result as normal/abnor mal. # Eos (test code = 416) 0.70 See_Comment H [Au tomated message] The system [employer] generated this result transmitted ref erence range: 0.00 - 0 .50 K/L. The refe rence range was not u sed to interpret this result as normal/abnor mal. # Baso (test code = 417) 0.10 See_Comment [A utomated message] The system [employer] generated this result transmitted ref erence range: 0.00 - 0 .20 K/L. The refe rence range was not u sed to interpret this result as normal/abnor mal. Immature 1 % 0-0 H Granulocytes-Relative (test code = 2801) Lab Interpretation (test Abnormal code = 02838-1) [facility] W/PLT COUNT & AUTO [id number] 05:57:00 Test Item Value Reference Range Interpretation [...] PERCENT (BEAKER) (test code = 2801) POCT-GLUCOSE [id number] 21:03:00 Test Item Value Reference Range Interpretation Comments POC-GLUCOSE METER 124 mg/dL 70-110 H : Notified RN/MD: TESTED ([facility]) (test code [facility] [place] [address]: Agricultural Equipment Sales Engineer/Techni garett ID = [id number] for Jennifer Teixeira ph POCT-GLUCOSE [id number] 16:45:00 Test Item Value Reference Range Interpretation Comments POC-GLUCOSE METER 167 mg/dL 70-110 H : [facility] (test code [address] [facility], = 1538) [place] 258078: Agricultural Equipment Sales Engineer/Techni garett ID = [id number] for Tolo , Chisa POCT-GLUCOSE [id number] 11:42:00 Test Item Value Reference Range Interpretation Comments POC-GLUCOSE METER 136 mg/dL 70-110 H : [facility]) (test code [address] [facility], = 1538) [place] 258078: Agricultural Equipment Sales Engineer/Techni garett ID = [id number] for Tolo , Chisa ANG, TUNNELED CATHETER [id number] 10:46:00Reason for Central Line/PICC?->Need for hemodialysis accessReason for exam:->DialysisFINAL REPORT Procedure: Tunneled dialysis catheter placement. History: Need for hemodialysis. Material Lister: Haim Garcia MD. Solder Sprayer: Oc Grigsby. Modality: Sonography and fluoroscopy. DOSE [...] stable condition. Complications: None immediate. Device: 15.5 Pakistani x 19 cm cuff to tip Duraflow [...] MDReport Verified Date/Time: 10/22/2019 10:46:01 Reading Location: [place] [address] Angio Body Reading Room IR Tunneled Catheter [id number] 10:46:00Interface, External Ris In - 10/22/2019 10:48 AM CDTFINAL REPORT Procedure: Tunneled dialysis catheter placement. History: Need for hemodialysis. Material Lister: Haim Garcia MD. Solder Sprayer: Seb M.Amalia. Modality: Sonography and fluoroscopy. DOSE REDUCTION: The [...] stable condition. Complications: None immediate. Device: 15.5 Pakistani x 19 cm cuff to tip Duraflow [...] MDReport Verified Date/Time: 10/22/2019 10:46:01 Reading Location: [facility] P048 Angio Body Reading Room [facility] [id number] 06:30:00 Test Item Value Reference Range Interpretation [...] 347) EGFR (BEAKER) (test 21 mL/min/1.73 ESTIMA RIAN GFR IS code = 1092) sq m NOT ACCURATE CREATININE CLEARANCE IN PREDICTING GLOMERULAR FILTRATION RATE . ESTIMATED GFR I S NOT APPLICABLE FOR DIALYSIS PATIEN TS. Agricultural Equipment Sales Engineer ID - [id number] W/PLT COUNT & AUTO [id number] 06:13:00 Test Item Value Reference Range Interpretation [...] PERCENT (BEAKER) (test code = 2801) POCT-GLUCOSE [id number] 05:58:00 Test Item Value Reference Range Interpretation Comments POC-GLUCOSE METER 94 mg/dL 70-110 : TESTED A T [facility]17 (BEAKER) (test code = [address], 1538) [facility] 77 478: Agricultural Equipment Sales Engineer/Techni garett ID = [id number] for Odessa Rainey POCT-GLUCOSE [id number] 20:27:00 Test Item Value Reference Range Interpretation Comments POC-GLUCOSE METER 126 mg/dL 70-110 H : TESTED A T [facility] 1317 (LEYLA) (test code [address] [address] [facility], = 1538) [facility] 77 478: Agricultural Equipment Sales Engineer/Techni garett ID = [id number] for Odessa Rainey POCT-GLUCOSE [id number] 17:05:00 Test Item Value Reference Range Interpretation Comments POC-GLUCOSE METER 215 mg/dL 70-110 H : Notified RN/MD: TESTED ([facility]) (test code AT [facility] [address] = 1538) [place] [facility] [address]: Agricultural Equipment Sales Engineer/Techni garett ID = [id number] for Ksenia German POCT-GLUCOSE [id number] 12:45:00 Test Item Value Reference Range Interpretation Comments POC-GLUCOSE METER 80 mg/dL 70-110 : Notified RN/MD: TESTED ([facility]) (test code = AT [facility] [address]) [facility] [address]: Agricultural Equipment Sales Engineer/Techni garett ID = [id number] for Ksenia German RAD, CHEST, 1 VIEW, NON [id number] 10:31:00Reason for exam:->SOBShould this be performed at [...] MDReport Verified Date/Time: 10/21/2019 10:31:25 Reading Location: [facility] Radiology Reading Room XR chest 1 view portable / [id number] 10:31:00 Interface, External Ris In - 10/21/2019 [...] MDReport Verified Date/Time: 10/21/2019 10:31:25 Reading Location: [facility] Radiology Reading Room [facility] 2019-10-21 06:36:00 Test [...] 347) EGFR (BEAKER) (test 16 mL/min/1.73 ESTIMA RIAN GFR IS code = 1092) sq m NOT ACCURATE CREATININE CLEARANCE IN PREDICTING GLOMERULAR FILTRATION RATE . ESTIMATED GFR I S NOT APPLICABLE FOR DIALYSIS PATIEN TS. Agricultural Equipment Sales Engineer ID - RESORIANPOCT-GLUCOSE [id number] 06:20:00 Test Item Value Reference Range Interpretation Comments POC-GLUCOSE METER 114 mg/dL 70-110 H : TESTED A T [facility] (BEAKER) (test code [address], = 1538) [facility] [place] 77 478: Agricultural Equipment Sales Engineer/Techni garett ID = [id number] for Odessa Rainey CBC W/PLT COUNT & AUTO [id number] 06:18:00 Test Item Value Reference Range Interpretation [...] PERCENT (BEAKER) (test code = 2801) POCT-GLUCOSE [id number] 21:21:00 Test Item Value Reference Range Interpretation Comments POC-GLUCOSE METER 134 mg/dL 70-110 H : TESTED A T [facility]17 (BEAKER) (test code [facility], = 1538) [place] [address]: Agricultural Equipment Sales Engineer/Techni garett ID = [id number] for Odessa Rainey POCT-GLUCOSE [id number] 17:24:00 Test Item Value Reference Range Interpretation Comments POC-GLUCOSE METER 115 mg/dL 70-110 H : TESTED A T [facility]17 (BEAKER) (test code [facility], = 1538) [place] [address]: Agricultural Equipment Sales Engineer/Techni garett ID = [id number] for Natividad Gregory POCT-GLUCOSE [id number] 12:25:00 Test Item Value Reference Range Interpretation Comments POC-GLUCOSE METER 164 mg/dL 70-110 H : TESTED A T [facility]17 (BEAKER) [facility] [place] [address]: Agricultural Equipment Sales Engineer/Techni garett ID = [id number] for Natividad Gregory COMPREHENSIVE METABOLIC [id number] 06:14:00 Test Item Value Reference Range Interpretation [...] 347) EGFR (BEAKER) (test 16 mL/min/1.73 ESTIMA RIAN GFR IS code = 1092) sq m NOT ACCURATE CREATININE CLEARANCE IN PREDICTING GLOMERULAR FILTRATION RATE . ESTIMATED GFR I S NOT APPLICABLE FOR DIALYSIS PATIEN TS. Agricultural Equipment Sales Engineer ID - RESORIANPOCT-GLUCOSE [id number] 05:44:00 Test Item Value Reference Range Interpretation Comments POC-GLUCOSE METER 115 mg/dL 70-110 H : TESTED A T [facility] 1317 ([facility]) (test code [facility], = 1538) [facility] 77 478: Agricultural Equipment Sales Engineer/Techni garett ID = [id number] for Emil Tucker POCT-GLUCOSE [id number] 05:32:00 Test Item Value Reference Range Interpretation Comments POC-GLUCOSE METER 112 mg/dL 70-110 H : Notified RN/MD: TESTED ([facility]) ([facility] [address] [address] = 1538) [facility] [address]: Agricultural Equipment Sales Engineer/Techni garett ID = [id number] for Ksenia German POCT-GLUCOSE [id number] 05:29:00 Test Item Value Reference Range Interpretation Comments POC-GLUCOSE METER 139 mg/dL 70-110 H : Notified RN/MD: TESTED (BEAKER) (test code AT [facility] [address] = 1538) [facility] [address]: Agricultural Equipment Sales Engineer/Techni garett ID = [id number] for Ksenia German POCT-GLUCOSE [id number] 05:16:00 Test Item Value Reference Range Interpretation Comments POC-GLUCOSE METER 107 mg/dL 70-110 : TESTED A T [facility] 1317 (BEAKER) (test code [facility], = 1538) [place] [address] 478: Agricultural Equipment Sales Engineer/Techni garett ID = [id number] for Odessa Rainey POCT-GLUCOSE [id number] 04:51:00 Test Item Value Reference Range Interpretation Comments POC-GLUCOSE METER 169 mg/dL 70-110 H : [facility] ([facility] (test code [facility], = 1538) [place] [address]8078: Agricultural Equipment Sales Engineer/Techni garett ID = [id number] for Emil Tucker CBC W/PLT COUNT & AUTO [id number] 10:08:00 Test Item Value Reference Range Interpretation [...] PERCENT (BEAKER) (test code = 2801) POCT-GLUCOSE [id number] 20:59:00 Test Item Value Reference Range Interpretation Comments POC-GLUCOSE METER 196 mg/dL 70-110 H : Notified RN/MD: TESTED ([facility]) (test code AT [facility] [address]17 [address] [address] = 1538) [facility] [address]: Agricultural Equipment Sales Engineer/Techni garett ID = [id number] for Odessa Rainey POCT-GLUCOSE [id number] 16:29:00 Test Item Value Reference Range Interpretation Comments POC-GLUCOSE METER 169 mg/dL 70-110 H : TESTED A T [facility] 1317 ([facility]) (test code [facility], = 1538) [facility] 77 [address]: Agricultural Equipment Sales Engineer/Techni garett ID = [id number] for Emil Tucker POCT-GLUCOSE [id number] 11:18:00 Test Item Value Reference Range Interpretation Comments POC-GLUCOSE METER 197 mg/dL 70-110 H : TESTED A T [facility] (BEAKER) (test code [address], = 1538) [facility] 77 478: Agricultural Equipment Sales Engineer/Techni garett ID = [id number] for Emil Tucker POCT-GLUCOSE [id number] 05:47:00 Test Item Value Reference Range Interpretation Comments POC-GLUCOSE METER 116 mg/dL 70-110 H : Notified RN/MD: TESTED (BEAKER) (test code AT [facility] [address] = 1538) [address], [facility] [address]: Agricultural Equipment Sales Engineer/Techni garett ID = [id number] for Klaus Martinezisha COMPREHENSIVE METABOLIC [id number] 05:16:00 Test Item Value Reference Range Interpretation [...] hemolyzed EGFR (BEAKER) (test 14 mL/min/1.73 ESTIMA RIAN GFR IS code = 1092) sq m NOT ACCURATE CREATININE CLEARANCE IN PREDICTING GLOMERULAR FILTRATION RATE . ESTIMATED GFR I S NOT APPLICABLE FOR DIALYSIS PATIEN TS. Agricultural Equipment Sales Engineer ID - JUSTINCBC W/PLT COUNT & AUTO [id number] 04:55:00 Test Item Value Reference Range Interpretation [...] PERCENT (BEAKER) (test code = 2801) POCT-GLUCOSE [id number] 20:40:00 Test Item Value Reference Range Interpretation Comments POC-GLUCOSE METER 119 mg/dL 70-110 H : Notified RN/MD: TESTED ([facility]) (test [facility] 1538[facility] [place] [address]: Agricultural Equipment Sales Engineer/Techni garett ID = [id number] for Lisa miramontes Aurea POCT-GLUCOSE [id number] 16:53:00 Test Item Value Reference Range Interpretation Comments POC-GLUCOSE METER 236 mg/dL 70-110 H : [facility] ([facility], = 1538) [place] [address]: Agricultural Equipment Sales Engineer/Techni garett ID = [id number] for Tolo , Chisa POCT-GLUCOSE [id number] 11:39:00 Test Item Value Reference Range Interpretation Comments POC-GLUCOSE METER 171 mg/dL 70-110 H : [facility] ([facility]) (test code [address] [facility], = 1538) [place] [address]: Agricultural Equipment Sales Engineer/Techni garett ID = [id number] for Tolo , Chisa POCT-GLUCOSE [id number] 06:07:00 Test Item Value Reference Range Interpretation Comments POC-GLUCOSE METER 140 mg/dL 70-110 H : Notified RN/MD: TESTED ([facility]) (test code AT [facility] [address] = 1538) [place] [address]: Agricultural Equipment Sales Engineer/Techni garett ID = [id number] for Mary Dixon CBC W/PLT COUNT & AUTO [id number] 04:32:00 Test Item Value Reference Range Interpretation [...] (BEAKER) (test code = 2801) COMPREHENSIVE METABOLIC [id number] 04:30:00 Test Item Value Reference Range Interpretation [...] hemolyzed EGFR (BEAKER) (test 18 mL/min/1.73 ESTIMA RIAN GFR IS code = 1092) sq m NOT ACCURATE CREATININE CLEARANCE IN PREDICTING GLOMERULAR FILTRATION RATE . ESTIMATED GFR I S NOT APPLICABLE FOR DIALYSIS PATIEN TS. Agricultural Equipment Sales Engineer ID - [id number] Leuko-Red [id number] 23:54:00 Test Item Value Reference Range Interpretation Comments CROSSMATCH (test code = 2264) COMPATIBLE Unit ABO (test code = O Pos 7417027) UNIT NUMBER (test code = [id number] 934-0) Status (test code = 5181386) [facility] Blood Bank Product (test code RED BLOOD CELLS = 2263) PRODUCT CODE (test code = R6162R79 933-2) [facility] Culture - Rule Out Line Infection (Central Line)2019-10-16 22:00:00 Test Item Value Reference Range Interpretation Comments Result (test code = No growth in 5 days 6463-4) [facility] [id number] 22:00:00 Test Item Value Reference Range Interpretation Comments CULTURE (BEAKER) (test No growth in 5 days code = 1095) POCT-GLUCOSE [id number] 21:16:00 Test Item Value Reference Range Interpretation Comments POC-GLUCOSE METER 158 mg/dL 70-110 H : Notified RN/MD: TESTED (BEAKER) (test code AT [facility] [address] = 1538) [place] 629208: Agricultural Equipment Sales Engineer/Techni garett ID = [id number] for Mary Dixon POCT-GLUCOSE [id number] 17:33:00 Test Item Value Reference Range Interpretation Comments POC-GLUCOSE METER 117 mg/dL 70-110 H : [facility] ([facility] (test code [facility], = 1538) [place] [address] 478: Agricultural Equipment Sales Engineer/Techni garett ID = [id number] for Tolo , Chisa POCT-GLUCOSE [id number] 11:56:00 Test Item Value Reference Range Interpretation Comments POC-GLUCOSE METER 124 mg/dL 70-110 H : [facility] ([facility] = 1538) [place] [address] 478: Agricultural Equipment Sales Engineer/Techni garett ID = [id number] for Tolo , Chisa [id number] 08:35:00 Test Item Value Reference Range Interpretation Comments Lipase (test code = 87 U/L 6-51 H 3040-3) LISET (test code = LISET) Agricultural Equipment Sales Engineer ID - [id number] Lab Interpretation (test Abnormal code = 74137-3) [facility]2020-08-12 08:35:00 Test Item Value Reference Range Interpretation Comments LIPASE (BEAKER) (test code = 749) 87 U/L 6-51 H Agricultural Equipment Sales Engineer ID - [id number] 06:17:00 Test Item Value Reference Range Interpretation Comments POC-GLUCOSE METER 118 mg/dL 70-110 H : Notified RN/MD: TESTED (BEAKER) (test code AT [facility] [address] = 1538) [facility] [address]: Agricultural Equipment Sales Engineer/Techni garett ID = [id number] for Mary Dixon COMPREHENSIVE METABOLIC [id number] 06:02:00 Test Item Value Reference Range Interpretation [...] 347) EGFR (BEAKER) (test 12 mL/min/1.73 ESTIMA RIAN GFR IS code = 1092) sq m NOT ACCURATE CREATININE CLEARANCE IN PREDICTING GLOMERULAR FILTRATION RATE . ESTIMATED GFR I S NOT APPLICABLE FOR DIALYSIS PATIEN TS. Agricultural Equipment Sales Engineer ID - [id number] W/PLT COUNT & AUTO [id number] 05:48:00 Test Item Value Reference Range Interpretation [...] PERCENT (BEAKER) (test code = 2801) POCT-GLUCOSE [id number] 21:00:00 Test Item Value Reference Range Interpretation Comments POC-GLUCOSE METER 148 mg/dL 70-110 H : Notified RN/MD: TESTED (BEAKER) (test code AT [facility] [address] = 1538) [place] 629208: Agricultural Equipment Sales Engineer/Techni garett ID = [id number] for Mary Dixon POCT-GLUCOSE [id number] 16:15:00 Test Item Value Reference Range Interpretation Comments POC-GLUCOSE METER 173 mg/dL 70-110 H : [facility] ([facility] (test code [facility], = 1538) [place] [address] 478: Agricultural Equipment Sales Engineer/Techni garett ID = [id number] for Natividad Gregory POCT-GLUCOSE [id number] 12:17:00 Test Item Value Reference Range Interpretation Comments POC-GLUCOSE METER 207 mg/dL 70-110 H : [facility] ([facility]ER) (test code [facility], = 1538) [place] [address]: Agricultural Equipment Sales Engineer/Techni garett ID = [id number] for Ellie Pedersen, [id number] 09:50:00 Test Item Value Reference Range Interpretation Comments ABO Grouping (test code O = 2588) Rh Factor (test code = POS 2019 @ 0931 PINK 2589) TOP [id number] 3 [facility] HospitalType and screen, [id number] 09:27:00 Test Item Value Reference Range Interpretation Comments ABO/RH AUTOMATED (BEAKER) (test O POSITIVE code = 2260) Ab Scrn (test code = 890-4) NEGATIVE [facility]2020-08-11 09:07:00 Test Item Value Reference Range Interpretation Comments LIPASE (BEAKER) (test code = 749) 98 U/L 6-51 H Agricultural Equipment Sales Engineer ID - [id number] 08:58:00 Test Item Value Reference Range Interpretation Comments Amylase (test code = 79 U/L 30-110 1798-8) LISET (test code = LISET) Agricultural Equipment Sales Engineer ID - [id number] Lab Interpretation (test Normal code = 65178-8) [facility]2020-08-11 08:58:00 Test Item Value Reference Range Interpretation Comments AMYLASE (BEAKER) (test code = 349) 79 U/L 30-110 Agricultural Equipment Sales Engineer ID - JUSTINBasic Metabolic [id number] 06:46:00 Test Item Value Reference Range Interpretation Comments Sodium (test code = 138 meq/L 333-306 4733-2) Potassium (test code = 3.9 meq/L 3.6-5.5 2823-3) Chloride (test code = 99 meq/L 98-106 2075-0) CO2 (test code = 25 meq/L -29 2028-9) BUN (test code = 20 mg/dL - 3094-0) Creatinine (test code 4.87 mg/dL 0.5-1.2 H = 2160-0) Glucose (test code = 137 mg/dL 70-110 H 2345-7) Calcium (test code = 7.9 mg/dL 8.5-10.5 L 51108-5) EGFR (test code = 15 mL/min/1.[place] [address]-6) NOT ACCURATE CREATININE CLEARANCE IN PREDICTING GLOMERULAR FILTRATION RATE . ESTIMATED GFR I S NOT APPLICABLE FOR DIALYSIS PATIENTS. LISET (test code = LISET) Agricultural Equipment Sales Engineer ID - [id number] Lab Interpretation Abnormal (test code = 79343-1) [facility] [id number] 06:46:00 Test Item Value Reference Range Interpretation Comments SODIUM (BEAKER) 138 meq/L 135-148 (test code = 381) POTASSIUM (BEAKER) 3.9 meq/L 3.6-5.5 (test code = 379) CHLORIDE (BEAKER) 99 meq/L 98-106 (test code = 382) CO2 (BEAKER) (test 25 meq/L -29 code = 355) BLOOD UREA NITROGEN 20 mg/dL - (BEAKER) (test code = 354) CREATININE (BEAKER) 4.87 mg/dL 0.50-1.20 H (test code = 358) GLUCOSE RANDOM 137 mg/dL 70-110 H (BEAKER) (test code = 652) CALCIUM (BEAKER) 7.9 mg/dL 8.5-10.5 L (test code = 697) EGFR (BEAKER) (test 15 mL/min/1.73 ESTIMA RIAN GFR IS code = 1092) sq m NOT ACCURATE CREATININE CLEARANCE IN PREDICTING GLOMERULAR FILTRATION RATE . ESTIMATED GFR I S NOT APPLICABLE FOR DIALYSIS PATIEN TS. Agricultural Equipment Sales Engineer ID - [id number] W/PLT COUNT & AUTO [id number] 06:29:00 Test Item Value Reference Range Interpretation [...] PERCENT (BEAKER) (test code = 2801) POCT-GLUCOSE [id number] 05:37:00 Test Item Value Reference Range Interpretation Comments POC-GLUCOSE METER 127 mg/dL 70-110 H : Notified RN/MD: TESTED ([facility]) (test code AT [facility] [address] [facility] = 1538) [place] [address]: Agricultural Equipment Sales Engineer/Techni garett ID = [id number] for Zack Mary POCT-GLUCOSE [id number] 21:22:00 Test Item Value Reference Range Interpretation Comments POC-GLUCOSE METER 140 mg/dL 70-110 H : TESTED A T [facility] 1317 ([facility]) (test code [facility], = 1538) [place] [address]: Agricultural Equipment Sales Engineer/Techni garett ID = [id number] for Jes navarrete Denise Marquise POCT-GLUCOSE [id number] 18:24:00 Test Item Value Reference Range Interpretation Comments POC-GLUCOSE METER 115 mg/dL 70-110 H : Notified RN/MD: TESTED ([facility]) (test code AT [facility] [address] [address] = 1538) [place] [address]: Agricultural Equipment Sales Engineer/Techni garett ID = [id number] for landon rama Ksenia RAD, CHEST, 1 VIEW, NON [id number] 14:11:00Reason for exam:- >dyspneaShould this be performed at the bedside?->YesFINAL REPORT CHEST AP PORTABLE SEMIERECT History provided: Dyspnea Comparison exam: CT performed five days ago Right hemidiaphragm elevated. Mild atelectatic change at the right base. Lungs otherwise clear and vascularity normal. Signed: Aydin Cisneros Verified Date/Time: 10/14/2019 14:11:06 Reading Location: [facility] [address] Radiology Reading Room POCT-GLUCOSE [id number] 11:13:00 Test Item Value Reference Range Interpretation Comments POC-GLUCOSE METER 213 mg/dL 70-110 H : Notified RN/MD: TESTED (BEAKER) (test code AT [facility] [address] = 1538) [facility] [address]: Agricultural Equipment Sales Engineer/Techni garett ID = [id number] for Ksenia German POCT-GLUCOSE [id number] 06:59:00 Test Item Value Reference Range Interpretation Comments POC-GLUCOSE METER 164 mg/dL 70-110 H : TESTED A T [facility] 1317 (BEAKER) (test code [address] [facility], = 1538) [facility] [address]: Agricultural Equipment Sales Engineer/Techni garett ID = [id number] for Maame Rosario BASIC METABOLIC [id number] 06:17:00 Test Item Value Reference Range Interpretation [...] 697) EGFR (BEAKER) (test 10 mL/min/1.73 ESTIMA RIAN GFR IS code = 1092) sq m NOT ACCURATE CREATININE CLEARANCE IN PREDICTING GLOMERULAR FILTRATION RATE . ESTIMATED GFR I S NOT APPLICABLE FOR DIALYSIS PATIEN TS. Agricultural Equipment Sales Engineer ID - RESORIANPOCT-GLUCOSE [id number] 21:06:00 Test Item Value Reference Range Interpretation Comments POC-GLUCOSE METER 156 mg/dL 70-110 H : TESTED A T [facility] [address] (BEAKER) (test code [address], = 1538) [place] [address]: Agricultural Equipment Sales Engineer/Techni garett ID = [id number] for Chloe Page BLOOD [id number] 19:00:00 Test Item Value Reference Range Interpretation Comments CULTURE (BEAKER) (test No growth in 5 days code = 1095) BLOOD [id number] 19:00:00 Test Item Value Reference Range Interpretation Comments CULTURE (BEAKER) (test No growth in 5 days code = 1095) POCT-GLUCOSE [id number] 16:38:00 Test Item Value Reference Range Interpretation Comments POC-GLUCOSE METER 204 mg/dL 70-110 H : TESTED A T [facility] [address] (BEAKER) (test code [address], = 1538) [place] [address]: Agricultural Equipment Sales Engineer/Techni garett ID = [id number] for Jesus Maloneysa POCT-GLUCOSE [id number] 12:33:00 Test Item Value Reference Range Interpretation Comments POC-GLUCOSE METER 260 mg/dL 70-110 H : TESTED A T [facility] (BEAKER) (test code [address], = 1538) [place] [address]: Agricultural Equipment Sales Engineer/Techni garett ID = [id number] for Tolo Jesussa [id number] 06:35:00 Test Item Value Reference Range Interpretation Comments Procalcitonin (test code = 0.57 ng/mL <0.05 H 90080-0) LISET (test code = LISET) SEPSIS RISK (ng/mL)Low: 0.05-0.50Intermedi ate: 0.51-2.00High: >=2.01 Lab Interpretation (test Abnormal code = 94474-7) [facility]AL[facility]ONIN[facility] 06:35:00 Test Item Value Reference Range Interpretation Comments PROCALCITONIN (BEAKER) (test code 0.57 ng/mL <0.05 H = 3036) SEPSIS RISK (ng/mL)Low: 0.05-0.50Intermediate: 0.51-2.00High: >=2.01POCT-GLUCOSE [id number] 06:24:00 Test Item Value Reference Range Interpretation Comments POC-GLUCOSE METER 141 mg/dL 70-110 H : Notified RN/MD: TESTED (BEAKER) (test code AT [facility] [address] = 1538) [facility] [address]: Agricultural Equipment Sales Engineer/Techni garett ID = [id number] for Mary Dixon BASIC METABOLIC [id number] 05:45:00 Test Item Value Reference Range Interpretation [...] 697) EGFR (BEAKER) (test 11 mL/min/1.73 ESTIMA RIAN GFR IS code = 1092) sq m NOT ACCURATE CREATININE CLEARANCE IN PREDICTING GLOMERULAR FILTRATION RATE . ESTIMATED GFR I S NOT APPLICABLE FOR DIALYSIS PATIEN TS. Agricultural Equipment Sales Engineer ID - [id number] 05:36:00 Test Item Value Reference Range Interpretation Comments Triglycerides (test 413 mg/dL code = 2571-8) LISET (test code = LISET) TRIGLYCERIDE REFERENCE RANGELow Risk <150Borderline Risk 150-199High Risk 200-499Very High Risk >=500Operator ID - RESORIANOperator ID - RESORIANOperator ID - RESORIANOperator ID - RESORIAN [facility]ERIDES[facility]-09 05:36:00 Test Item Value Reference Range Interpretation Comments TRIGLYCERIDES (BEAKER) (test code = 413 mg/dL 540) TRIGLYCERIDE REFERENCE RANGELow Risk <150Borderline Risk 150-199High Risk 200-499Very High Risk>=500Operator ID - RESORIANOperator ID - RESORIANOperator ID - RESORIANOperator ID - RESORIANCBC (Hemogram only) 2019-10-13 05:27:00 Test Item Value Reference Range Interpretation Comments WBC (test code = 6690-2) 30.1 See_Comment H [A utomated message] The system [employer] generated this result transmitted ref erence range: 4.0 - 10 .0 K/L. The refe rence range was not u sed to interpret this result as normal/abnor mal. RBC (test code = 789-8) 2.82 See_Comment L [Au tomated message] The system [employer] generated this result transmitted ref erence range: 4.20 - 5 .80 M/L. The refe rence range was not u sed to interpret this result as normal/abnor mal. MCHC (test code = 786-4) 31.8 See_Comment L [A utomated message] The system [employer] generated this result transmitted ref erence range: 32.0 - 3 6.0 GM/DL. The refe rence range was not u sed to interpret this result as normal/abnor mal. Hematocrit (test code = 23.6 % 36-50 L 4544-3) MCV (test code = 787-2) 83.7 fL 82-99 MCH (test code = 785-6) 26.6 pg 27-33 L RDW (test code = 788-0) 14.5 % 12-15 Platelets (test code = 330 See_Comment [Aut omated message] 777-3) The system [employer] generated this result transmitted ref erence range: 150 - 43 0 K/CU MM. The referen ce range was not u sed to interpret this result as normal/abnor mal. MPV (test code = 10.3 fL 6-11.5 80800-3) nRBC (test code = 413) 0 See_Comment [Aut omated message] The system [employer] generated this result transmitted ref erence range: 0 - 0 /1 00 WBC. The refere nce range was not u sed to interpret this result as normal/abnor mal. Lab Interpretation (test Abnormal code = 96962-6) [facility] (HEMOGRAM ONLY)2019-10-13 05:27:00 Test Item Value Reference [...] 0-0 (BEAKER) (test code = 413) POCT-GLUCOSE [id number] 20:47:00 Test Item Value Reference Range Interpretation Comments POC-GLUCOSE METER 186 mg/dL 70-110 H : Notified RN/MD: TESTED (BEAKER) (test code AT [facility] [address] [facility] = 1538) [facility] [address]: Agricultural Equipment Sales Engineer/Techni garett ID = [id number] for Mary Dixon POCT-GLUCOSE [id number] 16:44:00 Test Item Value Reference Range Interpretation Comments POC-GLUCOSE METER 190 mg/dL 70-110 H : TESTED A T [facility] [address]17 (BEAKER) (test code [address] [facility], = 1538) [facility] [address]: Agricultural Equipment Sales Engineer/Techni garett ID = [id number] for Katheryn Tuckerr POCT-GLUCOSE [id number] 12:08:00 Test Item Value Reference Range Interpretation Comments POC-GLUCOSE METER 194 mg/dL 70-110 H : TESTED A T [facility] (BEAKER) (test code [address], = 1538) [place] [address]: Agricultural Equipment Sales Engineer/Techni garett ID = [id number] for Katheryn Tuckerr [id number] 06:03:00 Test Item Value Reference Range Interpretation Comments LIPASE (BEAKER) (test code = 749) 100 U/L 6-51 H Agricultural Equipment Sales Engineer ID - [id number] 06:02:00 Test Item Value Reference Range Interpretation Comments Magnesium (test code = 1.7 mg/dL 1.5-3 15116-5) LISET (test code = LISET) Agricultural Equipment Sales Engineer ID - [id number] Lab Interpretation (test Normal code = 31687-2) [facility] [id number] 06:02:00 Test Item Value Reference Range Interpretation Comments POC-GLUCOSE METER 116 mg/dL 70-110 H : Notified RN/MD: TESTED (BEAKER) (test code [facility] = [facility]) [facility] [address]: Agricultural Equipment Sales Engineer/Techni garett ID = [id number] for Mary Martinez [id number] 06:02:00 Test Item Value Reference Range Interpretation Comments MAGNESIUM (BEAKER) (test code = 1.7 mg/dL 1.5-3.0 627) Agricultural Equipment Sales Engineer ID - [id number] 05:54:00 Test Item Value Reference Range Interpretation Comments AMYLASE (BEAKER) (test code = 349) 75 U/L 30-110 Agricultural Equipment Sales Engineer ID - [id number] [id number] 20:49:00 Test Item Value Reference Range Interpretation Comments POC-GLUCOSE METER 189 mg/dL 70-110 H : Notified RN/MD: TESTED (BEAKER) (test code AT [facility] [address] = 1538) [facility] [address]: Agricultural Equipment Sales Engineer/Techni garett ID = [id number] for Mary Martinez POCT-GLUCOSE [id number] 17:10:00 Test Item Value Reference Range Interpretation Comments POC-GLUCOSE METER 117 mg/dL 70-110 H : TESTED A T [facility] (BEAKER) (test code [address] [facility], = 1538) [facility] [address]: Agricultural Equipment Sales Engineer/Techni garett ID = [id number] for Aleksandra Maloney POCT-GLUCOSE [id number] 12:22:00 Test Item Value Reference Range Interpretation Comments POC-GLUCOSE METER 150 mg/dL 70-110 H : TESTED A T [facility] (BEAKER) (test code [address] [facility], = 1538) [facility] [address]: Agricultural Equipment Sales Engineer/Techni garett ID = [id number] for Tolo , Chisa Manual [id number] 06:37:00 Test Item Value Reference Range Interpretation Comments % Neutros (manual) 75 % (test code = 1359) % Lymphs (manual) (test 14 % code = 1360) % Monos (manual) (test 9 % code = 1361) % Metamyelo (manual) 1 % 0-0 H (test code = 258) % Bands (manual) (test 1 % 0-10 code = 1348) # Neutros (manual) 23.70 See_Comment H [Automat ed (test code = 1365) message] The system which generated this result transmitted reference range : 1.80 - 8.00 K/ L. The reference r saul was not used to interpret this result as normal/abnormal . # Lymphs (manual) (test 4.42 See_Comment [Au tomated code = 1366) message] The sy stem which generated this result transmitted reference range : 1.48 - 4.50 K/ L. The reference r saul was not used to interpret this result as normal/abnormal . # Monos (manual) (test 2.84 See_Comment H [Aut omated code = 1367) message] The sy stem which generated this result transmitted reference range : 0.00 - 1.30 K/ L. The reference r saul was not used to interpret this result as normal/abnormal . # Metamyelo (manual) 0.32 See_Comment H [Autom ated (test code = 261) message] T he system which generated this result transmitted reference range : 0.00 - 0.00 K/ L. The reference r saul was not used to interpret this result as normal/abnormal . # Bands (manual) (test 0.3 See_Comment [Aut omated code = 1349) message] The sy stem which generated this result transmitted reference range : 0.0 - 0.8 K/L . The reference r saul was not used to interpret this result as normal/abnormal . Total Counted (test 100 code = 1351) Bands plus Segmented 24.02 Neutrophils (test code = 1352) Toxic Granulation (test Present code = 771) Large Platelet (test Present code = 2156) Giant Platelet (test Present code = 313) Anisocytosis (test code 1+ few = 961) Hypochromia (test code 2+ moderate = 963) Lab Interpretation Abnormal (test code = 45410-8) [facility] W/PLT COUNT & AUTO [id number] 06:37:00 Test Item Value Reference Range Interpretation [...] (BEAKER) (test code = 2+ moderate 963) [id number] 06:05:00 Test Item Value Reference Range Interpretation Comments LIPASE (BEAKER) (test code = 749) 105 U/L 6-51 H Agricultural Equipment Sales Engineer ID - ADMINCOMPREHENSIVE METABOLIC [id number] 06:05:00 Test Item Value Reference Range Interpretation [...] 347) EGFR (BEAKER) (test 10 mL/min/1.73 ESTIMA RIAN GFR IS code = 1092) sq m NOT ACCURATE CREATININE CLEARANCE IN PREDICTING GLOMERULAR FILTRATION RATE . ESTIMATED GFR I S NOT APPLICABLE FOR DIALYSIS PATIEN TS. Agricultural Equipment Sales Engineer ID - [id number] 06:03:00 Test Item Value Reference Range Interpretation Comments MAGNESIUM (BEAKER) (test code = 1.9 mg/dL 1.5-3.0 627) Agricultural Equipment Sales Engineer ID - [id number] 05:56:00 Test Item Value Reference Range Interpretation Comments AMYLASE (BEAKER) (test code = 349) 80 U/L 30-110 Agricultural Equipment Sales Engineer ID - ADMINPOCT-GLUCOSE [id number] 05:50:00 Test Item Value Reference Range Interpretation Comments POC-GLUCOSE METER 178 mg/dL 70-110 H : Notified RN/MD: TESTED (LEYLA) (test code AT [facility] [address] = 1538) [place] [address]: Agricultural Equipment Sales Engineer/Techni garett ID = [id number] for Mary Martinez POCT-GLUCOSE [id number] 20:45:00 Test Item Value Reference Range Interpretation Comments POC-GLUCOSE METER 138 mg/dL 70-110 H : Notified RN/MD: TESTED (LEYLA) (test code AT [facility] [address] = 1538) [place] [address]: Agricultural Equipment Sales Engineer/Techni garett ID = [id number] for Mary Martinez Hepatitis B core antibody, [id number] 19:23:00 Test Item Value Reference Range Interpretation Comments Hep B Core Total Ab (test Nonreactive Nonreactive code = 27990-9) LISET (test code = LISET) Agricultural Equipment Sales Engineer ID - DB Lab Interpretation (test Normal code = 14248-4) [facility]TIBODY, [id number] 19:23:00 Test Item Value Reference Range Interpretation Comments HEPATITIS B CORE TOTAL ANTIBODY Nonreactive Nonreactive (AKILAKER) (test code = 497) Agricultural Equipment Sales Engineer ID - DBPOCT-GLUCOSE [id number] 16:27:00 Test Item Value Reference Range Interpretation Comments POC-GLUCOSE METER 161 mg/dL 70-110 H : TESTED A T [facility] (BEAKER) (test code [address], = 1538) [place] [address]: Agricultural Equipment Sales Engineer/Techni garett ID = [id number] for Emil Tucker POCT-GLUCOSE [id number] 11:16:00 Test Item Value Reference Range Interpretation Comments POC-GLUCOSE METER 167 mg/dL 70-110 H : TESTED A T [facility] (BEAKER) (test code [address], = 1538) [place] [address]: Agricultural Equipment Sales Engineer/Techni garett ID = [id number] for Ellie Pedersen CBC W/PLT COUNT & AUTO [id number] 06:49:00 Test Item Value Reference Range Interpretation [...] code = 1+ few 963) COMPREHENSIVE METABOLIC [id number] 06:13:00 Test Item Value Reference Range Interpretation [...] 347) EGFR (BEAKER) (test 13 mL/min/1.73 ESTIMA RIAN GFR IS code = 1092) sq m NOT ACCURATE CREATININE CLEARANCE IN PREDICTING GLOMERULAR FILTRATION RATE . ESTIMATED GFR I S NOT APPLICABLE FOR DIALYSIS PATIEN TS. Agricultural Equipment Sales Engineer ID - [id number] 06:13:00 Test Item Value Reference Range Interpretation Comments LIPASE (BEAKER) (test code = 749) 116 U/L 6-51 H Agricultural Equipment Sales Engineer ID - [id number] 06:12:00 Test Item Value Reference Range Interpretation Comments MAGNESIUM (BEAKER) (test code = 1.9 mg/dL 1.5-3.0 627) Agricultural Equipment Sales Engineer ID - [id number] 06:04:00 Test Item Value Reference Range Interpretation Comments AMYLASE (BEAKER) (test code = 349) 91 U/L 30-110 Agricultural Equipment Sales Engineer ID - [id number] [id number] 05:34:00 Test Item Value Reference Range Interpretation Comments POC-GLUCOSE METER 151 mg/dL 70-110 H : TESTED A T [facility] (BEAKER) (test code [address], = 1538) [place] [address]: Agricultural Equipment Sales Engineer/Techni garett ID = [id number] for Puneet ph, Civy POCT-GLUCOSE [id number] 20:56:00 Test Item Value Reference Range Interpretation Comments POC-GLUCOSE METER 173 mg/dL 70-110 H : TESTED A T [facility] (BEAKER) (test code [address], = 1538) [place] [address]: Agricultural Equipment Sales Engineer/Techni garett ID = [id number] for Puneet ph, Civy POCT-GLUCOSE [id number] 16:53:00 Test Item Value Reference Range Interpretation Comments POC-GLUCOSE METER 267 mg/dL 70-110 H : TESTED A T [facility] (BEAKER) (test code [address], = 1538) [facility] [address]: Agricultural Equipment Sales Engineer/Techni garett ID = [id number] for Emil Tucker [id number] 15:35:00 Test Item Value Reference Range Interpretation Comments LIPASE (BEAKER) (test code = 749) 129 U/L 6-51 H Agricultural Equipment Sales Engineer ID - [id number] 15:26:00 Test Item Value Reference Range Interpretation Comments AMYLASE (BEAKER) (test code = 349) 85 U/L 30-110 Agricultural Equipment Sales Engineer ID - [id number], CHEST, WITH [id number] 14:52:00FINAL REPORT HISTORY : LEUKOCYTOSIS TECHNIQUE : [...] MDReport Verified Date/Time: 10/09/2019 14:52:27 Reading Location: [facility] [address] [address] Radiology Reading Room CT, ABDOMEN 2019-10-09 14:52:00FINAL [...] CT findingssuggestive of hepatic steatosis. Signed: Charly Fungort Verified Date/Time: 10/09/2019 14:52:27 Reading Location: [facility] [address] Radiology Reading Room CT chest with IV [id number] 14:52:00Interface, External Ris In - 10/09/2019 2:54 [...] MDReport Verified Date/Time: 10/09/2019 14:52:27 Reading Location: [facility] [address] Radiology [facility]pelvis with IV [id number] 14:52:00Interface, External Ris In - 10/09/2019 2:54 [...] MDReport Verified Date/Time: 10/09/2019 14:52:27 Reading Location: [facility] [address] Radiology [facility] [id number] 11:32:00 Test Item Value Reference Range Interpretation Comments POC-GLUCOSE METER 293 mg/dL 70-110 H : TESTED A T [facility] 1317 (BEAKER) (test code [facility], = 1538) [facility] [address]: Agricultural Equipment Sales Engineer/Techni garett ID = [id number] for Emil Tucker POCT-GLUCOSE [id number] 06:30:00 Test Item Value Reference Range Interpretation Comments POC-GLUCOSE METER 229 mg/dL 70-110 H : Notified RN/MD: TESTED (BEAKER) (test code AT [facility] [address] = 1538) [facility] [address]: Agricultural Equipment Sales Engineer/Techni garett ID = [id number] for Mary Dixon CBC W/PLT COUNT & AUTO [id number] 06:15:00 Test Item Value Reference Range Interpretation [...] code 1+ few = 479) COMPREHENSIVE METABOLIC [id number] 05:54:00 Test Item Value Reference Range Interpretation [...] S NOT APPLICABLE FOR DIALYSIS PATIEN TS. Agricultural Equipment Sales Engineer ID - AGONZALEZPOCT-GLUCOSE [id number] 21:11:00 Test Item Value Reference Range Interpretation Comments POC-GLUCOSE METER 236 mg/dL 70-110 H : TESTED A T [facility] (BEPABLO) (test code [address], = 1538) [facility] [address]: Agricultural Equipment Sales Engineer/Techni garett ID = [id number] for Tanmay stollVicky Clostridium difficile GDH [id number] 19:12:00 Test Item Value Reference Range Interpretation Comments C. Difficle Toxin Negative Negative (test code = 0303050949) C. Difficile GDH Negative Negative No indicati on of Antigen (test code = Clostri dium 3181696078) difficile infection and n o colonization. Discontinue enteric isolati on and therapy. LISET (test code = Testing performed LISET) by [employer] Rapid Cassette Assay. For GDH, published sensitivity of the assay is 98.7% compared to cytotoxicity testing. For Toxin AB, published sensitivity is 87.8% and specificity 99.4% compared to cytotoxicity testing.Verificati on of kit performance was done by the [facility] Microbiology Lab prior to clinical use. Lab Interpretation Normal (test code = 28718-9) [facility]ICILE [facility] [id number] 19:12:00 Test Item Value Reference Range Interpretation Comments CDT TOXIN (test code Negative Negative = 1364700668) CDT GDH ANTIGEN (test Negative Negative No ind ication of code = 5467425014) Clostridi um difficile infection and n o colonization. Discontinue ent carmen isolation and t herapy. Testing performed by [employer] Rapid Cassette Assay. For GDH, published sensitivity of the assay is 98.7% compared to cytotoxicity testing. For Toxin AB, published sensitivity is 87.8% and specificity 99.4% compared to cytotoxicity testing.Verification of kit performance was done by the [facility] Microbiology Lab prior to clinical use.Urinalysis Microscopic [id number] 17:16:00 Test Item Value Reference Range Interpretation Comments RBC, UA (test code = 5-10 See_Comment [Autom ated message] 799-7) The system [employer] generated this result transmitted ref erence range: /HPF. Th e reference range was not used to interpr et this result as normal/abnormal . WBC, UA (test code = 5-10 See_Comment [Autom ated message] 01673-9) The system [employer] generated this result transmitted ref erence range: /HPF. Th e reference range was not used to interpr et this result as normal/abnormal . Bacteria, UA (test Rare code = 16957-9) SQUAMOUS EPITHELIAL 5-10 See_Comment [Automa rian message] (test code = 51692-6) The sy stem which generated this result transmitted ref erence range: /HPF. Th e reference range was not used to interpr et this result as normal/abnormal . Amorphous Crystals Moderate (test code = 08684-9) Yeast (test code = Few 93802-9) [facility] [id number] 17:16:00 Test Item Value Reference Range Interpretation Comments RBC UA-MANUAL (BEAKER) (test code = 5-10 /HPF 1659) WBC UA-MANUAL (BEAKER) (test code = 5-10 /HPF 1661) BACTERIA (BEAKER) (test code = 517) Rare SQUAMOUS EPITHELIAL MANUAL (BEAKER) 5-10 /HPF (test code = 1663) AMORPHOUS CRYSTALS (BEAKER) (test Moderate code = 1584) YEAST (BEAKER) (test code = 1585) Few C-Reactive [id number] 17:10:00 Test Item Value Reference Range Interpretation Comments CRP (test code = 676) 20.64 mg/dL 0-0.5 H LISET (test code = LISET) Agricultural Equipment Sales Engineer ID - JBERN Lab Interpretation (test Abnormal code = 63940-8) [facility] [id number] 17:10:00 Test Item Value Reference Range Interpretation Comments C-REACTIVE PROTEIN (BEAKER) (test 20.64 mg/dL 0.00-0.50 H code = 676) Agricultural Equipment Sales Engineer ID - JBERNUrinalysis with Microscopic If [id number] 16:58:00 Test Item Value Reference Range Interpretation Comments Color, UA (test code = 5778-6) Yellow Clarity, UA (test code = 5767-9) Clear Specific Borup, UA (test code = 1.010 1.001-1.035 5811-5) pH, UA (test code = 5803-2) 5.5 5.0-8.0 Protein, UA (test code = 60327-4) 30 mg/dL Negative A Glucose, UA (test code = 365) Negative Negative Ketones, UA (test code = 2514-8) Negative Negative Bilirubin, UA (test code = 46044-5) Negative Negative Blood, UA (test code = 10313-6) Small Negative A Nitrite, UA (test code = 5802-4) Negative Negative Leukocytes, UA (test code = 5799-2) Negative Negative Urobilinogen, UA (test code = 0.2 mg/dL 0.2-1 79756-4) Specimen Source (test code = 2795) Lab Interpretation (test code = Abnormal 90579-7) [facility] WITH MICROSCOPIC IF [id number] 16:58:00 Test Item Value Reference Range Interpretation [...] (test code 0.2 mg/dL 0.2-1.0 = 463) SOURCE([facility]) (test code = 2795) POCT-GLUCOSE [id number] 16:42:00 Test Item Value Reference Range Interpretation Comments POC-GLUCOSE METER 249 mg/dL 70-110 H : Notified RN/MD: TESTED ([facility]) (test code AT [facility] [address] [place] [address] = 1538) [facility] [address]: Agricultural Equipment Sales Engineer/Techni garett ID = [id number] for Ksenia German RAD, CHEST, 1 VIEW, NON [id number] 15:04:00Reason for exam:- >PNEUMONIAShould this be performed [...] bones: No acute abnormality. Signed: Immanuel Quinones Verified Date/Time:10/08/2019 15:04:41 Reading Location: [facility] [address] Radiology Reading Room POCT-GLUCOSE [id number] 11:26:00 Test Item Value Reference Range Interpretation Comments POC-GLUCOSE METER 277 mg/dL 70-110 H : Notified RN/MD: TESTED (LEYLA) (test code AT [facility] [address] = 1538) [facility] [address]: Agricultural Equipment Sales Engineer/Techni garett ID = [id number] for Ksenia German [id number] 09:40:00 Test Item Value Reference Range Interpretation Comments TRIGLYCERIDES (LEYLA) (test code = 434 mg/dL 540) TRIGLYCERIDE REFERENCE RANGELow Risk <150Borderline Risk 150-199High Risk 200-499Very High Risk>=500Operator ID - JBERNCBC W/PLT COUNT & AUTO [id number] 06:54:00 Test Item Value Reference Range Interpretation [...] code = 1+ few 965) BASIC METABOLIC [id number] 06:24:00 Test Item Value Reference Range Interpretation [...] 358) GLUCOSE RANDOM 225 mg/dL 70-110 H ([facility]) (test code = 652) CALCIUM (BEAKER) 8.0 mg/dL 8.5-10.5 L (test code = 697) EGFR (BEAKER) (test 12 mL/min/1.73 ESTIMA RIAN GFR IS code = 1092) sq m NOT ACCURATE CREATININE CLEARANCE IN PREDICTING GLOMERULAR FILTRATION RATE . ESTIMATED GFR I S NOT APPLICABLE FOR DIALYSIS PATIAUGUSTIN TS. Agricultural Equipment Sales Engineer ID - [id number] [id number] 06:10:00 Test Item Value Reference Range Interpretation Comments POC-GLUCOSE METER 221 mg/dL 70-110 H : Notified RN/MD: TESTED ([facility]) (test code AT [facility] [address] [place] [address] = 1538) [place] [address]: Agricultural Equipment Sales Engineer/Techni garett ID = [id number] for Miguelangel Dixonar POCT-GLUCOSE [id number] 01:11:00 Test Item Value Reference Range Interpretation Comments POC-GLUCOSE METER 165 mg/dL 70-110 H : Notified RN/MD: TESTED ([facility]) (test code AT [facility] [address] = 1538) [place] [address]: Agricultural Equipment Sales Engineer/Techni garett ID = [id number] for Keaugustin , Mary POCT-GLUCOSE [id number] 21:25:00 Test Item Value Reference Range Interpretation Comments POC-GLUCOSE METER 221 mg/dL 70-110 H : Notified RN/MD: TESTED ([facility]) (test code AT [facility] [address] [address] = 1538) [place] [address]: Agricultural Equipment Sales Engineer/Techni garett ID = [id number] for Zack , Mary POCT-GLUCOSE [id number] 17:01:00 Test Item Value Reference Range Interpretation Comments POC-GLUCOSE METER 277 mg/dL 70-110 H : TESTED A T [facility] 1317 ([facility]) (test code [facility], = 1538) [facility] 77 [address]: Agricultural Equipment Sales Engineer/Techni garett ID = [id number] for Natividad Gregory POCT-GLUCOSE [id number] 12:30:00 Test Item Value Reference Range Interpretation Comments POC-GLUCOSE METER 261 mg/dL 70-110 H : TESTED A T [facility] [address] (BEAKER) (test code [address], = 1538) [place] [address]: Agricultural Equipment Sales Engineer/Techni garett ID = [id number] for Natividad Gregory CBC W/PLT COUNT & AUTO [id number] 07:03:00 Test Item Value Reference Range Interpretation [...] (test code = 1+ few 961) POCT-GLUCOSE [id number] 07:02:00 Test Item Value Reference Range Interpretation Comments POC-GLUCOSE METER 214 mg/dL 70-110 H : TESTED A T [facility] [address] (BEAKER) (test code [facility] [address], = 1538) [facility] 77 [address]: Agricultural Equipment Sales Engineer/Techni garett ID = [id number] for [facility], Sarai COMPREHENSIVE METABOLIC [id number] 06:40:00 Test Item Value Reference Range Interpretation [...] 347) EGFR (BEAKER) (test 10 mL/min/1.73 ESTIMA RIAN GFR IS code = 1092) sq m NOT ACCURATE CREATININE CLEARANCE IN PREDICTING GLOMERULAR FILTRATION RATE . ESTIMATED GFR I S NOT APPLICABLE FOR DIALYSIS PATIEN TS. Agricultural Equipment Sales Engineer ID - [id number] 06:26:00 Test Item Value Reference Range Interpretation Comments MAGNESIUM (BEAKER) (test code = 1.8 mg/dL 1.5-3.0 627) Agricultural Equipment Sales Engineer ID - [id number] [id number] 03:44:00 Test Item Value Reference Range Interpretation Comments POC-GLUCOSE METER 220 mg/dL 70-110 H : TESTED A T [facility] [address] (BEAKER) ([facility], = 1538) [place] [address]8078: Agricultural Equipment Sales Engineer/Techni garett ID = [id number] for Nwad iufu, Sarai POCT-GLUCOSE [id number] 03:36:00 Test Item Value Reference Range Interpretation Comments POC-GLUCOSE METER 247 mg/dL 70-110 H : TESTED A T [facility] [address] (BEAKER) (test code [address] [facility], = 1538) [place] [address]8078: Agricultural Equipment Sales Engineer/Techni garett ID = [id number] for Nwad iufu, Sarai POCT-GLUCOSE [id number] 22:13:00 Test Item Value Reference Range Interpretation Comments POC-GLUCOSE METER 278 mg/dL 70-110 H : TESTED A T [facility] [address] (BEAKER) ([facility] [facility] = 1538) [place] [address]8078: Agricultural Equipment Sales Engineer/Techni garett ID = [id number] for Vicky Howard POCT-GLUCOSE [id number] 16:26:00 Test Item Value Reference Range Interpretation Comments POC-GLUCOSE METER 163 mg/dL 70-110 H : TESTED A T [facility] [address] (BEAKER) (test code [address], = 1538) [place] [address]78: Agricultural Equipment Sales Engineer/Techni garett ID = [id number] for David, Cammy Hepatitis B surface [id number] 12:34:00 Test Item Value Reference Range Interpretation Comments Hep B S Ab (test code <8.0 See_Comment [Auto mated = 38673-1) message] The system which generated this result transmit rian reference range : <8.0 mIU/mL. e reference range was not used to interpret this result as normal/abnormal . LISET (test code = LISET) Agricultural Equipment Sales Engineer ID - AARON C Lab Interpretation Normal (test code = 60154-0) [facility] SURFACE [id number] 12:34:00 Test Item Value Reference Range Interpretation Comments HEPATITIS B SURFACE ANTIBODY < mIU/mL <8.0 (BEAKER) (test code = 647) Agricultural Equipment Sales Engineer ID - AARON CPOCT-GLUCOSE [id number] 12:26:00 Test Item Value Reference Range Interpretation Comments POC-GLUCOSE METER 113 mg/dL 70-110 H : TESTED A T [facility] [address] (BEAKER) (test code [address], = 1538) [place] [address]: Agricultural Equipment Sales Engineer/Techni garett ID = [id number] for Ali, Cammy POCT-GLUCOSE [id number] 11:14:00 Test Item Value Reference Range Interpretation Comments POC-GLUCOSE METER 118 mg/dL 70-110 H : TESTED A T [facility] [address] (BEAKER) (test code [address], = 1538) [place] [address]: Agricultural Equipment Sales Engineer/Techni garett ID = [id number] for Ali, Cammy POCT-GLUCOSE [id number] 10:09:00 Test Item Value Reference Range Interpretation Comments POC-GLUCOSE METER 137 mg/dL 70-110 H : TESTED A T [facility] [address] (BEAKER) (test code [address], = 1538) [place] [address]: Agricultural Equipment Sales Engineer/Techni garett ID = [id number] for Ali, Cammy Ketone, [id number] 09:37:00 Test Item Value Reference Range Interpretation Comments Ketones, Blood (test code = 1103) 0.1 mmol/L <0.4 Lab Interpretation (test code = Normal 27198-8) [facility] Hospital[facility], [id number] 09:37:00 Test Item Value Reference Range Interpretation Comments KETONES, BLOOD (BEAKER) (test code 0.1 mmol/L <0.4 = 1103) POCT-GLUCOSE [id number] 09:12:00 Test Item Value Reference Range Interpretation Comments POC-GLUCOSE METER 142 mg/dL 70-110 H : TESTED A T [facility] [address] (BEAKER) (test code [address], = 1538) [place] [address]: Agricultural Equipment Sales Engineer/Techni garett ID = [id number] for Ali, Cammy POCT-GLUCOSE [id number] 08:02:00 Test Item Value Reference Range Interpretation Comments POC-GLUCOSE METER 137 mg/dL 70-110 H : TESTED A T [facility] [address] (BEAKER) (test code [address], = 1538) [place] [address]: Agricultural Equipment Sales Engineer/Techni garett ID = [id number] for Ali, Cammy POCT-GLUCOSE [id number] 06:49:00 Test Item Value Reference Range Interpretation Comments POC-GLUCOSE METER 150 mg/dL 70-110 H : TESTED A T [facility] [address] (BEAKER) (test code [address], = 1538) [place] [address]: Agricultural Equipment Sales Engineer/Techni garett ID = [id number] for Cord Alyssia foster POCT-GLUCOSE [id number] 05:51:00 Test Item Value Reference Range Interpretation Comments POC-GLUCOSE METER 153 mg/dL 70-110 H : TESTED A T [facility] [address] (BEAKER) (test code [address], = 1538) [place] [address]: Agricultural Equipment Sales Engineer/Techni garett ID = [id number] for Cord Alyssia foster CBC W/PLT COUNT & AUTO [id number] 05:41:00 Test Item Value Reference Range Interpretation [...] code = 1+ few 963) BASIC METABOLIC [id number] 05:26:00 Test Item Value Reference Range Interpretation [...] S NOT APPLICABLE FOR DIALYSIS PATIEN TS. Agricultural Equipment Sales Engineer ID - [id number] 05:11:00 Test Item Value Reference Range Interpretation Comments Phosphorus (test code = 4.5 mg/dL 2.5-4.5 2777-1) LISET (test code = LISET) Agricultural Equipment Sales Engineer ID - SVETLANA Lab Interpretation (test Normal code = 43535-8) [facility] HospitalPHOSPHORUS2020-08-02 05:11:00 Test Item Value Reference Range Interpretation Comments PHOSPHORUS (BEAKER) (test code = 4.5 mg/dL 2.5-4.5 604) Agricultural Equipment Sales Engineer CHUY - SVETLANAPOCT-GLUCOSE [id number] 04:43:00 Test Item Value Reference Range Interpretation Comments POC-GLUCOSE METER 151 mg/dL 70-110 H : TESTED A T [facility] [address] (BEAKER) (test code [address], = 1538) [place] [address]: Agricultural Equipment Sales Engineer/Techni garett ID = [id number] for Cord Alyssia foster POCT-GLUCOSE [id number] 02:25:00 Test Item Value Reference Range Interpretation Comments POC-GLUCOSE METER 146 mg/dL 70-110 H : TESTED A T [facility] [address] (BEAKER) (test code [address], = 1538) [place] [address]: Agricultural Equipment Sales Engineer/Techni garett ID = [id number] for Cord Alyssia foster POCT-GLUCOSE [id number] 01:14:00 Test Item Value Reference Range Interpretation Comments POC-GLUCOSE METER 137 mg/dL 70-110 H : TESTED A T [facility] [address] (BEAKER) (test code [address], = 1538) [place] [address]: Agricultural Equipment Sales Engineer/Techni garett ID = [id number] for Alyssia Shaw BASIC METABOLIC [id number] 00:49:00 Test Item Value Reference Range Interpretation [...] 697) EGFR (BEAKER) (test 10 mL/min/1.73 ESTIMA RIAN GFR IS code = 1092) sq m NOT ACCURATE CREATININE CLEARANCE IN PREDICTING GLOMERULAR FILTRATION RATE . ESTIMATED GFR I S NOT APPLICABLE FOR DIALYSIS PATIEN TS. Agricultural Equipment Sales Engineer ID - MONTSERRATZAHENRIQUEPOCT-GLUCOSE [id number] 00:10:00 Test Item Value Reference Range Interpretation Comments POC-GLUCOSE METER 139 mg/dL 70-110 H : TESTED A T [facility] [address] (BEAKER) (test code [address], = 1538) [place] [address]: Agricultural Equipment Sales Engineer/Techni garett ID = [id number] for Cord cristian, Alyssia POCT-GLUCOSE [id number] 23:10:00 Test Item Value Reference Range Interpretation Comments POC-GLUCOSE METER 107 mg/dL 70-110 : TESTED A T [facility] [address] (BEAKER) (test code [address], = 1538) [place] [address]: Agricultural Equipment Sales Engineer/Techni garett ID = [id number] for Cord cristian, Alyssia POCT-GLUCOSE [id number] 23:07:00 Test Item Value Reference Range Interpretation Comments POC-GLUCOSE METER 97 mg/dL 70-110 : TESTED A T [facility] [address] (BEAKER) (test code = [address], 1538) [place] [address]: Agricultural Equipment Sales Engineer/Techni garett ID = [id number] for Cord es, Alyssia POCT-GLUCOSE [id number] 21:42:00 Test Item Value Reference Range Interpretation Comments POC-GLUCOSE METER 110 mg/dL 70-110 : TESTED A T [facility] [address] (BEAKER) (test code [address], = 1538) [place] [address]: Agricultural Equipment Sales Engineer/Techni garett ID = [id number] for Cord Alyssia foster BASIC METABOLIC [id number] 20:59:00 Test Item Value Reference Range Interpretation [...] S NOT APPLICABLE FOR DIALYSIS PATIEN TS. Agricultural Equipment Sales Engineer ID - KIMPOCT-GLUCOSE [id number] 20:06:00 Test Item Value Reference Range Interpretation Comments POC-GLUCOSE METER 127 mg/dL 70-110 H : [facility] ([facility] (test code [address], = 1538) [place] [address]: Agricultural Equipment Sales Engineer/Techni garett ID = [id number] for Mamie Dozier POCT-GLUCOSE [id number] 19:07:00 Test Item Value Reference Range Interpretation Comments POC-GLUCOSE METER 114 mg/dL 70-110 H : [facility] ([facility] (test code [facility] [address], = 1538) [place] [address]: Agricultural Equipment Sales Engineer/Techni garett ID = [id number] for Adeline Garnica POCT-GLUCOSE [id number] 18:24:00 Test Item Value Reference Range Interpretation Comments POC-GLUCOSE METER 111 mg/dL 70-110 H : Notified RN/MD: TESTED (BEAKER) (test code AT [facility] [address] = 1538) [place] [address]208: Agricultural Equipment Sales Engineer/Techni garett ID = [id number] for Glen shakeelChristelle BASIC METABOLIC [id number] 16:57:00 Test Item Value Reference Range Interpretation [...] S NOT APPLICABLE FOR DIALYSIS PATIEN TS. Agricultural Equipment Sales Engineer ID - RICARDA, NON-TUNNELED DIALYSIS CATH, [id number] 16:27:00 Reason for exam:->Access for HDFINAL REPORT Non- tunneled Dialysis Catheter Insertion History: Renal failure, need for central venous access. Modality: Fluoroscopy and sonography. Sedation: None. Material Lister: Charly Fung MD. Solder Sprayer: None. Approach: Right internal jugular vein Estimated [...] was serially dilated. The 15 cm 13 Pakistani Trialysis catheter was placed over the wire [...] MDReport Verified Date/Time: 10/05/2019 16:27:11 Reading Location: [place] [address] Angio Body Reading Room IR non-tunneled dialysis catheter [id number] 16:27:00Interface, External Ris In - 10/05/2019 4:29 PM CDTFINAL REPORT Non-tunneledDialysis Catheter Insertion History: Renal failure, need for central venous access. Modality: Fluoroscopy and sonography. Sedation: None. Material Lister: Charly Fung MD. Solder Sprayer: None. Approach: Right internal jugular vein Estimated [...] was serially dilated. The 15 cm 13 [place] Trialysis catheter was placed over the wire [...] MDReport Verified Date/Time: 10/05/2019 16:27:11 Reading Location: [place] [address] Angio Body Reading [facility] [id number] 15:56:00 Test Item Value Reference Range Interpretation Comments POC-GLUCOSE METER 133 mg/dL 70-110 H : TESTED A T [facility] 1317 (BEAKER) (test code [facility] [address], = 1538) [facility] 77 [address]: Agricultural Equipment Sales Engineer/Techni garett ID = [id number] for Odessa Castro Hepatitis B surface [id number] 14:18:00 Test Item Value Reference Range Interpretation Comments HBsAg Screen (test code = Nonreactive Nonreactive 5195-3) LISET (test code = LISET) Agricultural Equipment Sales Engineer ID - ADMIN Lab Interpretation (test Normal code = 99908-8) [facility] [id number] 14:18:00 Test Item Value Reference Range Interpretation Comments HEPATITIS B SURFACE ANTIGEN (2) Nonreactive Nonreactive (BEAKER) (test code = 2585) Agricultural Equipment Sales Engineer ID - ADMINBASIC METABOLIC [id number] 14:02:00 Test Item Value Reference Range Interpretation [...] S NOT APPLICABLE FOR DIALYSIS PATIEN TS. Agricultural Equipment Sales Engineer ID - ADMINPOCT-GLUCOSE [id number] 12:14:00 Test Item Value Reference Range Interpretation Comments POC-GLUCOSE METER 137 mg/dL 70-110 H : TESTED A T [facility] 1317 ([facility]) (test code [facility], = 1538) [place] [address]: Agricultural Equipment Sales Engineer/Techni garett ID = [id number] for Glen h, Lorita POCT-GLUCOSE [id number] 10:39:00 Test Item Value Reference Range Interpretation Comments POC-GLUCOSE METER 148 mg/dL 70-110 H : Notified RN/MD: TESTED ([facility]) (test code AT [facility] [address] = 1538) [place] [address]: Agricultural Equipment Sales Engineer/Techni garett ID = [id number] for Glen h, Lorita POCT-GLUCOSE [id number] 09:46:00 Test Item Value Reference Range Interpretation Comments POC-GLUCOSE METER 148 mg/dL 70-110 H : Notified RN/MD: TESTED ([facility]) (test code AT [facility] [address] = 1538) [place] [address]: Agricultural Equipment Sales Engineer/Techni garett ID = [id number] for Glen h, Lorita Lipid [id number] 09:39:00 Test Item Value Reference Range Interpretation Comments Triglycerides (test 783 mg/dL code = 2571-8) Cholesterol (test code 230 mg/dL = 2093-3) HDL (test code = 9 mg/dL 2085-9) LISET (test code = LISET) Calculated LDL [...] Borderline 130-159 High 160-189 Very High >=190 Agricultural Equipment Sales Engineer ID - ADMINOperator ID - ADMINOperator ID - ADMINOperator ID - ADMINOperator ID - ADMINOperator ID - ADMIN [facility] [id number] 09:39:00 Test Item Value Reference Range Interpretation [...] Borderline 130-159 High 160-189 Very High >=190 Agricultural Equipment Sales Engineer ID - ADMINOperator ID - ADMINOperator ID - ADMINOperator ID - ADMINOperator ID - ADMINOperator ID - ADMINCBC W/PLT COUNT & AUTO [id number] 08:58:00 Test Item Value Reference Range Interpretation [...] MORPHOLOGY (BEAKER) (test code Normal = 762) [id number] 08:50:00 Test Item Value Reference Range Interpretation Comments Fibrinogen (test code = 960 mg/dL 200-400 H 3255-7) LISET (test code = LISET) Final Information (Auto Output) Lab Interpretation (test Abnormal code = 35813-4) [facility] Hospital[facility]IBRINOGEN2020-08-01 08:50:00 Test Item Value Reference Range Interpretation Comments FIBRINOGEN LEVEL (BEAKER) (test 960 mg/dL 200-400 H code = 658) Final Information (Auto Output)COMPREHENSIVE METABOLIC [id number] 08:50:00 Test Item Value Reference Range Interpretation [...] S NOT APPLICABLE FOR DIALYSIS PATIEN TS. Agricultural Equipment Sales Engineer ID - [id number] 08:43:00 Test Item Value Reference Range Interpretation Comments MAGNESIUM (BEAKER) (test code = 1.8 mg/dL 1.5-3.0 627) Agricultural Equipment Sales Engineer ID - ADMINProthromin time/[id number] 08:41:00 Test Item Value Reference Interpretation Comments Range Protime (test code = 10.6 See_Comment [Autom ated 3612-2) message] The system which generated this result transmitted reference range : 9.3 - 12.0 sec. The reference range was not used to interpret this result as normal/abnormal . INR (test code = 1.0 See_Comment [Automated 8253-6) message] The system which generated this result transmitted reference range : <=5.9. The reference range was not used to interpret this result as normal/abnormal . LISET (test code = RECOMMENDED LISET) COUMADIN/WARFARIN INR THERAPY RANGESSTANDARD DOSE: 2.0 - 3.0 Includes: PROPHYLAXIS for venous thrombosis, systemic embolization; TREATMENT for venous thrombosis and/or pulmonary embolus.HIGH RISK: Target INR is 2.5-3.5 for patients with mechanical heart valves.Final Information (Auto Output)Final Information (Auto Output) Lab Interpretation Normal (test code = 16329-3) [facility] HospitalaPTT2020-08-01 08:41:00 Test Item Value Reference Range Interpretation Comments PTT (test code = 30.2 See_Comment [Automated 05643-9) message] The system which generated this result transmitted reference range : 23.0 - 35.0 sec . The reference range was not used to interpr et this result as normal/abnormal . LISET (test code = LISET) Final Information (Auto Output) Lab Interpretation Normal (test code = 29823-0) [facility] HospitalPROTHROMBIN TIME/[id number] 08:41:00 Test Item Value Reference Range Interpretation Comments PROTIME (BEAKER) (test code = 759) 10.6 sec 9.3-12.0 INR (BEAKER) (test code = 370) 1.0 <=5.9 RECOMMENDED COUMADIN/WARFARIN INR THERAPY RANGESSTANDARD DOSE: 2.0 - 3.0 Includes: PROPHYLAXIS forvenous thrombosis, systemic embolization; TREATMENT for venous thrombosis and/or pulmonary embolus.HIGH RISK: Target INR is 2.5-3.5 for patients with mechanical heart valves.Final Information (Auto Output)Final Information (Auto Output)[id number] 08:41:00 Test Item Value Reference Range Interpretation Comments PARTIAL THROMBOPLASTIN TIME (LEYLA) 30.2 sec 23.0-35.0 (test code = 760) Final Information (Auto Output)POCT-GLUCOSE [id number] 08:11:00 Test Item Value Reference Range Interpretation Comments POC-GLUCOSE METER 185 mg/dL 70-110 H : Notified RN/MD: TESTED (LEYLA) (test code AT [facility] [address] = 1538) [facility] [address]: Agricultural Equipment Sales Engineer/Techni garett ID = [id number] for Glen h Lorita RAD, CHEST, 1 VIEW, NON [id number] 07:32:00Reason for exam:->PULM EDEMAShould this be performed at the bedside?->YesFINAL REPORT Chest, one view. HISTORY: PULM EDEMA COMPARISON: None IMPRESSION: Elevation of the right hemidiaphragm. Central pulmonary venous congestion. No pleural effusion orpneumothorax. The cardiac silhouette is likely magnified by technique. No acute bony abnormality. Signed: Tasneem Ruth MDRort Verified Date/Time: 10/05/2019 07:32:34 Reading Location: [facility] C013Y CT Body Reading Room -GLUCOSE [id number] 07:07:00 Test Item Value Reference Range Interpretation Comments POC-GLUCOSE METER 212 mg/dL 70-110 H : [facility] ([facility] (test code [facility], = 1538) [place] [id number]: Agricultural Equipment Sales Engineer/Techni garett ID = [id number] for Zave r, Zubeda POCT-GLUCOSE [id number] 06:11:00 Test Item Value Reference Range Interpretation Comments POC-GLUCOSE METER 221 mg/dL 70-110 H : [facility] (test code [facility], = 1538) [place] [id number] 478: Agricultural Equipment Sales Engineer/Techni garett ID = [id number] for Zave r, Zubeda Blood gas, [id number] 05:48:00 Test Item Value Reference Range Interpretation Comments pH, Arterial (test 7.24 7.35-7.45 L code = 2744-1) pCO2, Arterial (test 23 See_Comment L [Autom ated code = 2019-8) message] The system which generated this result transmitted reference range : 35 - 45 mmHg. The reference range was not used to interpret this result as normal/abnormal . pO2, Arterial (test 80 See_Comment [Automa rian code = 2703-7) message] The system which generated this result transmitted reference range : 80 - 90 mmHg. The reference range was not used to interpret this result as normal/abnormal . O2 Sat, Arterial (test 94.2 % 96-97 L code = 2708-6) HCO3, Arterial (test 10 mmol/L 21-29 LL code = 1960-4) Base Excess, Arterial -16.0 mmol/L -2-3 L (test code = 1925-7) Patient Temperature 37.0 C (test code = 8310-5) FIO2 (test code = 21 % 1819) Lab Interpretation Abnormal (test code = 19174-8) [facility] [id number] 05:48:00 Test Item Value Reference Range Interpretation [...] (test code = 1819) 21.0 % POCT-GLUCOSE [id number] 05:13:00 Test Item Value Reference Range Interpretation Comments POC-GLUCOSE METER 218 mg/dL 70-110 H : TESTED A T [facility] 1317 (BEAKER) (test code [address], = 1538) [place] [id number] 478: Agricultural Equipment Sales Engineer/Techni garett ID = [id number] for Zave r, Zubeda POCT-GLUCOSE [id number] 04:10:00 Test Item Value Reference Range Interpretation Comments POC-GLUCOSE METER 207 mg/dL 70-110 H : TESTED A T [facility] [address] (BEAKER) (test code [address], = 1538) [place] [id number] 478: Agricultural Equipment Sales Engineer/Techni garett ID = [id number] for Zave r, Zubeda POCT-GLUCOSE [id number] 03:07:00 Test Item Value Reference Range Interpretation Comments POC-GLUCOSE METER 207 mg/dL 70-110 H : TESTED A T [facility]17 (BEAKER) ([facility] [place] [id number] 478: Agricultural Equipment Sales Engineer/Techni garett ID = [id number] for Zave r, Zubeda POCT-GLUCOSE [id number] 02:17:00 Test Item Value Reference Range Interpretation Comments POC-GLUCOSE METER 194 mg/dL 70-110 H : TESTED A T [facility] (BEAKER) ([facility] = [facility]) [place] [id number] 478: Agricultural Equipment Sales Engineer/Techni garett ID = [id number] for Zave r, Zubeda LIPID [id number] 01:17:00 Test Item Value Reference Range Interpretation [...] Borderline 130-159 High 160-189 Very High >=190 Agricultural Equipment Sales Engineer ID - [id number] ID - [id number] ID - [id number] METABOLIC PANEL 2019-10-05 01:17:00 Test Item Value [...] S NOT APPLICABLE FOR DIALYSIS PATIEN TS. Agricultural Equipment Sales Engineer ID - [id number] 01:14:00 Test Item Value Reference Range Interpretation Comments POC-GLUCOSE METER 191 mg/dL 70-110 H : TESTED A T [facility] [address] (BEAKER) (test code [address], = 1538) [facility] 77 478: Agricultural Equipment Sales Engineer/Techni garett ID = [id number] for Luther Nevarez [id number] 01:07:00 Test Item Value Reference Range Interpretation Comments MAGNESIUM (BEAKER) (test code = 1.9 mg/dL 1.5-3.0 627) Agricultural Equipment Sales Engineer ID - [id number] 01:01:00 Test Item Value Reference Range Interpretation Comments Glucose (test code = 211 mg/dL 70-110 H 2345-7) LISET (test code = LISET) Agricultural Equipment Sales Engineer ID - [id number] Lab Interpretation (test Abnormal code = 79981-4) [facility] 01:01:00 Test Item Value Reference Range Interpretation Comments GLUCOSE RANDOM (BEAKER) (test code 211 mg/dL 70-110 H = 652) Agricultural Equipment Sales Engineer ID - [id number] 00:54:00 Test Item Value Reference Range Interpretation Comments Hemoglobin A1C (test code 12.5 % 4.3-6.1 H = 4548-4) LISET (test code = LISET) Agricultural Equipment Sales Engineer ID - [id number] Lab Interpretation (test Abnormal code = 53617-1) [facility] [id number] 00:54:00 Test Item Value Reference Range Interpretation Comments HEMOGLOBIN A1C (BEAKER) (test code = 12.5 % 4.3-6.1 H 368) Agricultural Equipment Sales Engineer ID - [id number] W/PLT COUNT & AUTO [id number] 00:50:00 Test Item Value Reference Range Interpretation [...] PERCENT (BEAKER) (test code = 2801) POCT-GLUCOSE [id number] 00:08:00 Test Item Value Reference Range Interpretation Comments POC-GLUCOSE METER 181 mg/dL 70-110 H : TESTED A T [facility] (BEAKER) (test code [address], = 1538) [place] [id number]: Agricultural Equipment Sales Engineer/Techni garett ID = [id number] for Mamie Dozier POCT-GLUCOSE [id number] 23:09:00 Test Item Value Reference Range Interpretation Comments POC-GLUCOSE METER 170 mg/dL 70-110 H : TESTED A T [facility] (BEAKER) (test code [address], = 1538) [place] [id number]: Agricultural Equipment Sales Engineer/Techni garett ID = [id number] for Luther Nevarez POCT-GLUCOSE [id number] 22:02:00 Test Item Value Reference Range Interpretation Comments POC-GLUCOSE METER 163 mg/dL 70-110 H : TESTED A T [facility] 1317 (BEAKER) (test code [address], = 1538) [facility] 77 478: Agricultural Equipment Sales Engineer/Techni garett ID = [id number] for Veronica Hall SARS-CoV2/RT-PCR ([facility])2019-10-02 10:35:00 Test Item Value Reference Range Interpretation Comments SARS-COV2/RT-PCR Negative Not Detected, (test code = Negative, See 46161-1) external report for linked test SARS-COV-2 [facility] PERFORM[facility] (test code = 50952-3) LISET (test code = Negative result for [...] of the Act. Fact Sheet for Healthcare Providers:https://www.[employer]/sites/default/f adan/product/documents/F act_Sheet_HC_Providers_L hmd_QCUA-NcY-9.pdf Fact Sheet for Healthcare Patients:https://www.[employer]/sites/default/fi les/product/documents/Fa ct_Sheet_Patients_Lyra_S ARS-CoV-2.pdf Performing Laboratory:[facility] [place] [address] [facility])2019-10-02 10:35:00 Test Item Value Reference Range Interpretation Comments SARS-COV2/RT-PCR (test Negative Not Detected, Negative, code = 5937044) See external report for linked test SARS-COV-2 PERFORMING LAB [facility] (test code = 9077823) Negative result for this test determines that [...] 564(g) of the Act.Fact Sheet for Healthcare Providers:https://www.[employer]/sites/default/files/product/documents/Fact_Shee o_HL_Oqbobptzw_Zwxh_HOVO-ZmJ-6.pdfFact Sheet for Healthcare Patients:https://www.[employer]/sites/default/files/product/ documents/Iwrf_Wvnfp_Brirsiqv_Ynxq_IYJS-FdI-2.pdfPerforming Laboratory:[facility] [place] [address]
--- NOTE | 2020-05-03 13:33 | EDPHYS ---
Physician Documentation [facility] Name: Vijay Law Age: 24 yrs Sex: Male : 1995 Arrival Date: 05/03/2020 Time: 11:55 Bed 2 Private MD: Toney Fiore HPI: 05/03 13:30 This 24 yrs old Male presents to ER via Ambulatory with complaints of request cp for removal of port. 13:30 Patient reports having right upper chest port placed last year for temporary dialysis. cp Patient reports he was told port could be removed by DR Mccurdy several months ago but was unable to f/u to have port removed. Historical: - Allergies: 12:06 No Known Allergies; sv - PMHx: 12:06 Diabetes - NIDDM; Hypertension; Hypothyroidism; kidney failure; Thyroid problem; sv - Immunization history:: Adult Immunizations. - Social history:: Smoking status: . ROS: 13:30 All other systems are negative. cp Exam: 13:30 Head/Face: Normocephalic, atraumatic. cp 13:30 Constitutional: The patient appears in no acute distress, alert, awake, non-toxic, well developed, well nourished, obese. 13:30 Chest/axilla: Inspection: noted right upper chest catheter with no erythema, swelling, non-tender. 13:30 Cardiovascular: Rate: normal, Rhythm: regular. 13:30 Respiratory: the patient does not display signs of respiratory distress, Respirations: normal, no use of accessory muscles, no retractions, labored breathing, is not present, Breath sounds: are clear throughout, no decreased breath sounds, no stridor, no wheezing. 13:30 Skin: cellulitis, is not appreciated, no rash present. Vital Signs: 12:06 BP 140 / 92; Pulse 97; Resp 16; Temp 97.4; Pulse Ox 99% ; Weight 140.61 kg; Height 5 sv ft. 9 in. (175.26 cm); 14:01 BP 137 / 86; Pulse 91; Resp 18; Temp 97.8; Pulse Ox 99% on R/A; ph 12:06 Body Mass Index 45.78 (140.61 kg, 175.26 cm) sv MDM: 13:26 Patient medically screened. [facility] 13:32 Data reviewed: vital signs, nurses notes, and as a result, I will discharge patient. cp 13:32 Counseling: I had a detailed discussion with the patient and/or guardian regarding: the cp historical points, exam findings, and any diagnostic results supporting the discharge/admit diagnosis, the need for outpatient follow up, for definitive care, a general surgeon, to return to the emergency department if symptoms worsen or persist or if there are any questions or concerns that arise at home. Administered Medications: No medications were administered Disposition: 13:40 Chart complete. cp 05/04 06:18 Co-signature as Attending Physician, Toney Matias MD I agree with the assessment and poly plan of care. Disposition: 05/03/20 13:32 Discharged to Home. Impression: Encounter for examination and observation for other reasons. - Condition is Stable. - Discharge Instructions: Implanted Port Home Guide. - Medication Reconciliation Form, Thank You Letter, Antibiotic Education, Prescription Opioid Use form. - Follow up: Will Dutta MD; When: Tomorrow; Reason: Recheck today's complaints. - Problem is an ongoing problem. - Symptoms are unchanged. Signatures: Irina Galvan, CECY RN Toney Mayfield MD MD cha Hall, Patricia, RN RN ph Toney Ball PA PA Corrections: (The following items were deleted from the chart) 05/03 14:01 13:32 05/03/2020 13:32 Discharged to Home. Impression: Encounter for examination and ph observation for other reasons. Condition is Stable. Forms are Medication Reconciliation Form, Thank You Letter, Antibiotic Education, Prescription Opioid Use. Follow up: Will Dutta; When: Tomorrow; Reason: Recheck today's complaints. Problem is an ongoing problem. Symptoms are unchanged. cp 05/04 02:58 05/03 13:30 Patient reports having right upper chest port placed last year for cp temporary dialysis. Patient reports he was told port could be removed by several months ago but was unable to f/u to have port removed. cp
--- NOTE | 2020-05-03 13:33 | ER ---
Nurse's Notes [facility] Name: Vijay Law Age: 24 yrs Sex: Male : 1995 Arrival Date: 05/03/2020 Time: 11:55 Bed 2 Private MD: Diagnosis: Encounter for examination and observation for other reasons Presentation: 05/03 12:06 Chief complaint: Patient states: Right CVC port and thinks its getting infected, site sv is turning red x 1.5 weeks. Coronavirus screen: Client denies travel out of the [place] in the last 14 days. At this time, the client does not indicate any symptoms associated with coronavirus-19. Ebola Screen: No symptoms or risks identified at this time. Initial Sepsis Screen: Does the patient meet any 2 criteria? No. Patient's initial sepsis screen is negative. Does the patient have a suspected source of infection? No. Patient's initial sepsis screen is negative. Risk Assessment: Do you want to hurt yourself or someone else? Patient reports no desire to harm self or others. Onset of symptoms was April 2020. 12:06 Method Of Arrival: Ambulatory sv 12:06 Acuity: SUYAPA 3 sv Triage Assessment: 12:06 General: Appears in no apparent distress. comfortable, obese, Behavior is calm, sv cooperative, appropriate for age. Pain: Denies pain. Neuro: Level of Consciousness is awake, alert, obeys commands, Oriented to person, place, time, situation, Gait is steady. Respiratory: Respiratory effort is even, unlabored. Historical: - Allergies: 12:06 No Known Allergies; sv - PMHx: 12:06 Diabetes - NIDDM; Hypertension; Hypothyroidism; kidney failure; Thyroid problem; sv - Immunization history:: Adult Immunizations. - Social history:: Smoking status: . Screenin:22 Abuse screen: Denies threats or abuse. Denies injuries from another. Nutritional ph screening: No deficits noted. Tuberculosis screening: No symptoms or risk factors identified. Fall Risk None identified. Assessment: 13:59 Reassessment: Pt states that he no longer receives dialysis, instructed to follow up w/ ph general surgeon tomorrow for possible removal of catheter. General: Appears in no apparent distress. comfortable, obese, well groomed, Behavior is calm, cooperative, appropriate for age, Denies fever, feeling ill. Pain: Denies pain. Neuro: Level of Consciousness is awake, alert, obeys commands, Oriented to person, place, time, situation. Cardiovascular: Capillary refill < 3 seconds in bilateral fingers Patient's skin is warm and dry. Dialysis shunt: in the anterior aspect of right upper chest. Respiratory: Airway is patent Respiratory effort is even, unlabored. Derm: Skin is healthy with good turgor, Skin is pink, warm \T\ dry. Vital Signs: 12:06 BP 140 / 92; Pulse 97; Resp 16; Temp 97.4; Pulse Ox 99% ; Weight 140.61 kg; Height 5 sv ft. 9 in. (175.26 cm); 14:01 BP 137 / 86; Pulse 91; Resp 18; Temp 97.8; Pulse Ox 99% on R/A; ph 12:06 Body Mass Index 45.78 (140.61 kg, 175.26 cm) sv ED Course: 11:55 Patient arrived in ED. mr 12:05 Arm band placed on. sv 12:08 Triage completed. sv 12:57 Taya Richter, RN is Primary Nurse. ph 13:09 Toney Ball PA is PHCP. cp 13:10 Toney Matias MD is Attending Physician. cp 13:22 Patient has correct armband on for positive identification. Bed in low position. Call ph light in reach. Side rails up X 1. Pulse ox on. NIBP on. Door closed. Noise minimized. Warm blanket given. 13:31 Will Dutta MD is Referral Physician. cp 13:59 No provider procedures requiring assistance completed. Patient did not have IV access ph during this emergency room visit. Administered Medications: No medications were administered Outcome: 13:32 Discharge ordered by MD. cp 13:59 Discharged to home ambulatory. ph 13:59 Condition: good 13:59 Discharge instructions given to patient, Instructed on discharge instructions, follow up and referral plans. Demonstrated understanding of instructions, follow-up care. 14:01 Patient left the ED. ph Signatures: Irina Galvan RN RN Odessa Villanueva mr Taya Richter RN RN Toney Ball PA PA cp
[2020-05-03 14:23] VITALS: O2SAT 99
[2020-05-03 14:24] VITALS: BP 137/86; TEMP 97.8
== END 2020-05-03 14:01 | disposition home or self-care (01) ==
LOC: ER 11:51
DX: Z45.2 Encounter for adjustment and management of vascular access device (principal)
CPT/HCPCS: 99283

== ENCOUNTER 2020-11-28 17:49 | Inpatient (IN) | payer OTHER, SELFPAY ==
[2020-11-28 19:13] LABS: Protime INR 1.21
--- NOTE | 2020-11-28 19:15 | RAD REPORT ---
EXAM DESCRIPTION: RAD - Chest Single View - 11/28/2020 7:08 pm CLINICAL HISTORY: FEVER Chest pain. COMPARISON: Chest Single View dated 10/04/2019; Chest Single View dated 03/15/2018 FINDINGS: Portable technique limits examination quality. Mild interstitial pulmonary opacities are present probably representing mild interstitial edema or a viral infection. The heart is upper limit normal in size. No displaced fractures.Right-sided venous c atheter its tip in the SVC. IMPRESSION: Mild interstitial edema versus viral infection.
[2020-11-28 19:25] LABS: Absolute Lymphocytes (CBC) 0.9 K/uL (0.7-4.9); Basophils % 0.3 % (0-1.3); Hematocrit 43.2 % (39.6-49.0); Lymphocytes % 6.5 % (15.3-44.8); RBC Red Blood Cell Count 5.59 M/uL (4.33-5.43)
[2020-11-28 19:38] LABS: ALT/SGPT 76 U/L (12-78); AST/SGOT 73 U/L (15-37); Albumin 3.2 g/dL (3.4-5.0); Alkaline Phosphatase 105 U/L (45-117); BUN Blood Urea Nitrogen 9 mg/dL (7-18); Bicarbonate 26 mmol/L (21-32); Bilirubin Direct 0.4 mg/dL (0-0.2); Glucose Level 321 mg/dL (74-106); Magnesium 1.5 mg/dL (1.8-2.4); NT PRO-BNP 80 pg/mL (<125); Potassium 3.6 mmol/L (3.5-5.1); Protein, Total 8.5 g/dL (6.4-8.2); Sodium Level 128 mmol/L (136-145); Troponin (Emerg Dept Use Only) < 0.02 ng/mL (0.0-0.045)
[2020-11-28] MEDS ORDERED: NA CHLORIDE 0.9% 1,000 ML ONE (20:23)
--- NOTE | 2020-11-28 20:27 | RAD REPORT ---
EXAM DESCRIPTION: CT - Chest For Pe Angio - 11/28/2020 8:15 pm CLINICAL HISTORY: Chest pain. right sided chest pain COMPARISON: No comparisons TECHNIQUE: CT angiogram of the pulmonary arteries was performed with MIP. All CT scans are performed using dose optimization technique as appropriate and may include automated exposure control or mA/KV adjustment according to patient size. FINDINGS: No evidence of pulmonary thromboembolism. No acute aortic finding demonstrated. Mild interstitial edema suspected. Linear atelectasis is present in the right base. No focal infiltra te is detected. No significant pericardial or pleural fluid. No concerning bony finding. IMPRESSION: No evidence of pulmonary thromboembolism. Mild interstitial pulmonary edema likely present.
[2020-11-28 20:29] LABS: Blood Morphology Comment NOT SEEN (NOT SEEN); Dohle Bodies NOTED; Platelet Estimate ADEQ; Platelets, Giant NOTED; Polychromasia SLIGHT; White Blood Cell Scan OK (OK)
[2020-11-28] MEDS ORDERED: Magnesium Sulfate 2gm IVPB 2 G/50 ML BAG IV ONE (20:33)
--- NOTE | 2020-11-28 21:06 | EDPHYS ---
Physician Documentation [facility] Name: Vijay Law Age: 25 yrs Sex: Male : 1995 Arrival Date: 11/28/2020 Time: 17:52 Bed 8 Private MD: ED Physician Santosh John HPI: 11/28 18:22 This 25 yrs old Male presents to ER via Ambulatory with complaints of Dialysis jmm port pain. 18:22 The patient reports fever, not measured (subjective). Onset: The symptoms/episode jmm began/occurred gradually, 3 day(s) ago. Modifying factors: there are no obvious modifying factors. This is a 25-year-old male with a history of diabetes mellitus, hypertension, hypothyroidism that presents emerge department with complaints of fever and weakness beginning approximately 3 days ago. Patient denies shortness of breath. Patient states that he has a indwelling catheter secondary to a temporary kidney failure. Patient states it is becoming more painful and wished to have it taken out. . Historical: - Allergies: 18:03 unknown medication during surgery; ll1 - PMHx: 18:03 Diabetes - NIDDM; Hypertension; Hypothyroidism; kidney failure; Thyroid problem; ll1 - PSHx: 18:03 dialysis cath placements; ll1 - Immunization history:: Client reports having NOT received the Covid vaccine. Flu vaccine status is unknown. - Social history:: Smoking status: Patient denies any tobacco usage or history of. ROS: 18:22 Cardiovascular: Negative for chest pain, palpitations, and edema, Respiratory: Negative jmm for shortness of breath, cough, wheezing, and pleuritic chest pain, Abdomen/GI: Negative for abdominal pain, nausea, vomiting, diarrhea, and constipation. 18:22 Constitutional: Positive for body aches, fatigue. 18:22 All other systems are negative. Exam: 18:22 Constitutional: This is a well developed, well nourished patient who is awake, alert, jmm and in no acute distress. Head/Face: atraumatic. Eyes: EOMI, no conjunctival erythema appreciated ENT: Moist Mucus Membranes Neck: Trachea midline, Supple Chest/axilla: Normal chest wall appearance and motion. 18:22 Respiratory: Normal respirations, no respiratory distress appreciated Abdomen/GI: Non distended, soft Back: Normal ROM Skin: General appearance color normal MS/ Extremity: Moves all extremities, no obvious deformities appreciated, no edema noted to the lower extremities Neuro: Awake and alert, normal gait Psych: Behavior is normal, Mood is normal, Patient is cooperative and pleasant 18:22 Cardiovascular: Rate: tachycardic, Rhythm: regular, Pulses: no pulse deficits are appreciated. Vital Signs: 18:05 BP 166 / 114; Pulse 134; Resp 18; Temp 100.0; Pulse Ox 97% ; Weight 145.15 kg; Height 5 ll1 ft. 10 in. (177.80 cm); Pain 2/10; 18:18 BP 132 / 92; Pulse 131; Resp 18; Pulse Ox 97% on R/A; sv 19:00 BP 136 / 93; Pulse 128; Resp 22; Pulse Ox 97% ; sv 21:16 BP 120 / 81; Pulse 120; Resp 18; Pulse Ox 98% ; ea 18:05 Body Mass Index 45.91 (145.15 kg, 177.80 cm) ll1 MDM: 18:22 Patient medically screened. [facility] 21:01 Data reviewed: vital signs, nurses notes. Counseling: I had a detailed discussion with sheree the patient and/or guardian regarding: the historical points, exam findings, and any diagnostic results supporting the discharge/admit diagnosis, lab results, radiology results, the need for further work-up and treatment in the hospital. ED course: I discussed the patient with Jaret Brown whom accepted the patient to Dr. Cerda's service. . 11/28 18:29 Order name: Basic Metabolic Panel; Complete Time: 19:40 [facility] 11/28 18:29 Order name: CBC with Diff; Complete Time: 20:30 [facility] 11/28 18:29 Order name: LFT's; Complete Time: 19:40 [facility] 11/28 18:29 Order name: Magnesium; Complete Time: 19:40 [facility] 11/28 18:29 Order name: NT PRO-BNP; Complete Time: 19:40 [facility] 11/28 18:29 Order name: PT-INR; Complete Time: 19:24 [facility] 11/28 18:29 Order name: Troponin (emerg Dept Use Only); Complete Time: 19:40 [facility] 11/28 18:30 Order name: Procalcitonin; Complete Time: 20:17 [facility] 11/28 18:30 Order name: Lactate; Complete Time: 19:35 [facility] 11/28 18:30 Order name: Blood Culture Adult (2) [facility] 11/28 19:26 Order name: CBC Smear Scan; Complete Time: 20:30 [facility] 11/28 19:57 Order name: SARS-COV-2 RT PCR; Complete Time: 19:58 [facility] 11/29 04:37 Order name: Urinalysis; Complete Time: 15:07 [facility] 11/29 04:58 Order name: CBC with Automated Diff; Complete Time: 05:06 [facility] 11/29 05:18 Order name: Comprehensive Metabolic Panel; Complete Time: 15:07 [facility] 11/29 05:18 Order name: Phosphorus; Complete Time: 15:07 [facility] 11/29 05:18 Order name: Lipid Profile; Complete Time: 15:07 [facility] 11/29 05:18 Order name: T4 Free; Complete Time: 15:07 [facility] 11/29 05:18 Order name: Magnesium; Complete Time: 15:07 [facility] 11/29 05:18 Order name: Thyroid Stimulating Hormone; Complete Time: 15:07 [facility] 11/29 05:21 Order name: Urine Microscopic Only; Complete Time: 15:07 [facility] 11/29 05:46 Order name: Hemoglobin A1c; Complete Time: 15:07 [facility] 11/29 07:43 Order name: Glucose, Ancillary Testing; Complete Time: 15:07 [facility] 11/29 10:54 Order name: Gram Stain--Aerobic Bottle [facility] 11/29 10:56 Order name: Gram Stain--Aerobic Bottle [facility] 11/29 11:46 Order name: Glucose, Ancillary Testing; Complete Time: 15:07 [facility] 11/29 13:36 Order name: Gram Stain--Anaerobic Bottle [facility] 11/29 13:37 Order name: Gram Stain--Anaerobic Bottle [facility] 11/29 16:51 Order name: Glucose, Ancillary Testing; Complete Time: 16:54 [facility] 11/28 18:29 Order name: XRAY Chest (1 view); Complete Time: 19:18 [facility] 11/28 18:29 Order name: EKG; Complete Time: 18:29 [facility] 11/28 18:29 Order name: Cardiac monitoring; Complete Time: 18:29 [facility] 11/28 18:29 Order name: EKG - Nurse/Tech; Complete Time: 18:29 [facility] 11/28 18:29 Order name: IV Saline Lock; Complete Time: 18:48 [facility] 11/28 18:29 Order name: Labs collected and sent; Complete Time: 18:48 [facility] 11/28 18:29 Order name: O2 Per Protocol; Complete Time: 18:48 [facility] 11/28 18:29 Order name: O2 Sat Monitoring; Complete Time: 18:48 [facility] 11/28 19:51 Order name: CT Chest For PE Angio; Complete Time: 20:27 [facility] 11/28 21:53 Order name: CONS Physician Consult EDMS Administered Medications: 20:26 Drug: NS 0.9% 1000 ml Route: IV; Rate: 1 bolus; Site: right antecubital; ea 23:24 Follow up: Response: No adverse reaction; IV Status: Completed infusion; IV Intake: ea 1000ml 20:26 Drug: Magnesium Sulfate 1 grams Route: IVPB; Infused Over: 1 hrs; Site: right ea antecubital; 21:30 Follow up: IV Status: Completed infusion ea 21:40 Drug: vancoMYCIN 1 grams Route: IVPB; Infused Over: 2 hrs; Site: right antecubital; ea 23:23 Follow up: Response: No adverse reaction; IV Status: Completed infusion ea 23:23 Drug: LevaQUIN (levofloxacin) 750 mg Volume: 150 ml; Route: IVPB; Infused Over: 90 ea mins; Site: right antecubital; 11/29 16:57 Follow up: Response: No adverse reaction; IV Status: Completed infusion ll1 Disposition: 01:08 Co-signature as Attending Physician, Santosh John MD I agree with the assessment and rn plan of care. Attestation: The patient's history, exam findings, diagnostics, and a summary of any interventions or procedures was reviewed in detail with Den VILLELA. Disposition Summary: 11/28/20 21:05 Hospitalization Ordered Hospitalization Status: Observation jm Provider: Levi Cerda Condition: Stable jmm Problem: new jmm Symptoms: are unchanged jmm Bed/Room Type: Standard [facility] Location: Telemetry/MedSurg (Inpatient)(11/29/20 16:14) sv Room Assignment: 211(11/29/20 16:14) sv Diagnosis - Fever jmm - Dialysis Port Pain jmm Forms: - Medication Reconciliation Form jmm - SBAR form jmm Signatures: Dispatcher [employer] [facility] Irina Galvan RN Den Menendez PA PA [facility] Simeon Wright, RN RN Santosh Camargo MD MD rn Antunez, Elena RN Neftali Eller ea, RN RN ll1 Corrections: (The following items were deleted from the chart) 11/28 19:04 18:29 CORONAVIRUS+MR.LAB.BRZ ordered. [facility] 21:05 Telemetry/MedSurg (observation) [facility] em 21:05 [facility] em 11/29 16:14 11/28 21:44 [facility] 11/29 16:14 11/28 21:44 [facility]
--- NOTE | 2020-11-28 21:06 | ER ---
Nurse's Notes [facility] Name: Vijay Law Age: 25 yrs Sex: Male : 1995 Arrival Date: 11/28/2020 Time: 17:52 Bed 8 Private MD: Diagnosis: Fever;Dialysis Port Pain Presentation: 11/28 18:05 Chief complaint: Patient states: Was having dialysis port pain (R chest) for 5 days. ll1 Started to have fever . Fever, fatigue, sleeping a lot, body aches since. R chest doesn't hurt as bad anymore. "I want the catheter taken out". Coronavirus screen: Vaccine status: Patient reports receiving the 2nd dose of the covid vaccine. Client denies travel out of the [place] in the last 14 days. At this time, the client does not indicate any symptoms associated with coronavirus-19. Ebola Screen: Patient denies travel to an Ebola-affected area in the 21 days before illness onset. Initial Sepsis Screen: Does the patient meet any 2 criteria? HR > 90 bpm. Does the patient have a suspected source of infection? No. Patient's initial sepsis screen is negative. Risk Assessment: Do you want to hurt yourself or someone else? Patient reports no desire to harm self or others. Onset of symptoms was November 24, 2020. 18:05 Method Of Arrival: Ambulatory [facility] 18:05 Acuity: SUYAPA 3 ll1 Historical: - Allergies: 18:03 unknown medication during surgery; ll1 - PMHx: 18:03 Diabetes - NIDDM; Hypertension; Hypothyroidism; kidney failure; Thyroid problem; ll1 - PSHx: 18:03 dialysis cath placements; ll1 - Immunization history:: Client reports having NOT received the Covid vaccine. Flu vaccine status is unknown. - Social history:: Smoking status: Patient denies any tobacco usage or history of. Screenin:09 Abuse screen: Denies threats or abuse. Denies injuries from another. Nutritional sv screening: No deficits noted. Tuberculosis screening: No symptoms or risk factors identified. Fall Risk None identified. Assessment: 18:30 General: Appears in no apparent distress. comfortable, obese, well developed, Behavior sv is calm, cooperative, appropriate for age. General: Reports feeling ill for 2-3 days, fatigue for 2-3 days. Pain: Denies pain. Neuro: Level of Consciousness is awake, alert, obeys commands, Oriented to person, place, time, situation, Gait is steady. Cardiovascular: Patient's skin is warm and dry. Dialysis shunt: in the anterior aspect of right upper chest. Respiratory: Airway is patent Respiratory effort is even, unlabored, Respiratory pattern is regular, symmetrical. Derm: Skin is pink, warm \\T\\ dry. 20:26 Reassessment: Patient and/or family updated on plan of care and expected duration. Pain ea level reassessed. Patient is alert, oriented x 3, equal unlabored respirations, skin warm/dry/pink. Returned from CT. 21:16 Reassessment: Patient and/or family updated on plan of care and expected duration. Pain ea level reassessed. Patient is alert, oriented x 3, equal unlabored respirations, skin warm/dry/pink. Vital Signs: 18:05 BP 166 / 114; Pulse 134; Resp 18; Temp 100.0; Pulse Ox 97% ; Weight 145.15 kg; Height 5 ll1 ft. 10 in. (177.80 cm); Pain 2/10; 18:18 BP 132 / 92; Pulse 131; Resp 18; Pulse Ox 97% on R/A; sv 19:00 BP 136 / 93; Pulse 128; Resp 22; Pulse Ox 97% ; sv 21:16 BP 120 / 81; Pulse 120; Resp 18; Pulse Ox 98% ; ea 18:05 Body Mass Index 45.91 (145.15 kg, 177.80 cm) ll1 ED Course: 17:52 Patient arrived in ED. mr 18:08 Triage completed. ll1 18:08 Arm band placed on Patient placed in an exam room, on a stretcher. ll1 18:08 Patient has correct armband on for positive identification. Bed in low position. Call mh5 light in reach. Side rails up X 1. Warm blanket given. Pillow given. Pulse ox on. NIBP on. 18:09 Irina Galvan, CECY is Primary Nurse. sv 18:09 Den Cotton PA is PHCP. sheree 18:09 Dick Pride MD is Attending Physician. jessica 18:19 Awaiting ED provider evaluation. sv 18:26 Nurse Practitioner and/or Physician Track Production Engineer to see patient. sv 18:30 EKG done, by ED staff, reviewed by Den VILLELA. [facility] 18:30 First set of blood cultures drawn by me. Inserted saline lock: 20 gauge in right sv antecubital area, using aseptic technique. Blood collected. Flushed right antecubital with 2 ml normal saline. 18:40 Second set of blood cultures drawn by me. sv 18:49 Awaiting lab results. sv 18:49 COVID swab sent to lab. mh5 18:50 Awaiting for x-ray. sv 18:54 X-ray(s) taken. sv 19:06 Primary Nurse role handed off by Irina Galvan, CECY sv 19:08 XRAY Chest (1 view) In Process Unspecified. EDMS 20:15 CT Chest For PE Angio In Process Unspecified. EDMS 21:04 Levi Cerda is Hospitalizing Provider. m 21:15 Destiny Loja, RN is Primary Nurse. ea 21:53 No provider procedures requiring assistance completed. Patient admitted, IV remains in ea place. 11/29 01:08 Attending Physician role handed off by Dick Pride MD rn 01:08 Santosh John MD is Attending Physician. rn Administered Medications: 11/28 20:26 Drug: NS 0.9% 1000 ml Route: IV; Rate: 1 bolus; Site: right antecubital; ea 23:24 Follow up: Response: No adverse reaction; IV Status: Completed infusion; IV Intake: ea 1000ml 20:26 Drug: Magnesium Sulfate 1 grams Route: IVPB; Infused Over: 1 hrs; Site: right ea antecubital; 21:30 Follow up: IV Status: Completed infusion ea 21:40 Drug: vancoMYCIN 1 grams Route: IVPB; Infused Over: 2 hrs; Site: right antecubital; ea 23:23 Follow up: Response: No adverse reaction; IV Status: Completed infusion ea 23:23 Drug: LevaQUIN (levofloxacin) 750 mg Volume: 150 ml; Route: IVPB; Infused Over: 90 ea mins; Site: right antecubital; 11/29 16:57 Follow up: Response: No adverse reaction; IV Status: Completed infusion ll1 Intake: 11/28 23:24 IV: 1000ml; Total: 1000ml. ea Outcome: 21:05 Decision to Hospitalize by Provider. jmm 21:53 Admitted to ER Hold. Please see [facility] for further documentation. ea 21:53 Condition: stable 21:53 Instructed on the need for admit, Demonstrated understanding of instructions. 11/29 16:58 Patient left the ED. 1 Signatures: Dispatcher [employer] Irina Yoon, RN RN Den Cotton PA PA jmm Rich, [place] mr Santosh John MD MD rn Martinez, Maria [facility] Destiny Loja RN RN ea Lewis, Lynsay, RN RN [facility] Corrections: (The following items were deleted from the chart) 11/28 18:11 18:05 Chief complaint: Patient states: Was having dialysis post pain (R chest) for 5 ll1 days. Started to have fever Thursday. Fever, fatigue, sleeping a lot, body aches since. R chest doesn't hurt as bad anymore. ll1 18:11 18:05 Chief complaint: Patient states: Was having dialysis post pain (R chest) for 5 ll1 days. Started to have fever Thursday. Fever, fatigue, sleeping a lot, body aches since. R chest doesn't hurt as bad anymore. "I want the catheter taken out". ll1 18:28 18:18 BP 132 / 92; Pulse 149bpm; Resp 18bpm; Pulse Ox 97% RA; sv sv 19:04 18:49 CORONAVIRUS+ drawn and sent. [address]
[2020-11-28] MEDS: INSULIN GLARGINE 100 UNITS/ML SQ SCH (21:30)
[2020-11-28] MEDS ORDERED: VANCOMYCIN 1 GM/VIAL ONE (21:55)
[2020-11-28] MEDS ORDERED: NA CHLORIDE 0.9% 250 ML ONE (21:55)
--- NOTE | 2020-11-28 22:17 | P.HP ---
Certification for Inpatient Patient admitted to: Inpatient With expected LOS: <2 Midnights Patient will require the following post-hospital care: None Practitioner: I am a practitioner with admitting privileges, knowledge of patient current condition, hospital course, and medical plan of care. Services: Services provided to patient in accordance with Admission requirements found in Title 42 Section 412.3 of the Code of Federal Regulations Patient History Date of Service: 11/28/20 Reason for admission: port pain, fever History of Present Illness: Mr. Law is a 25 yo M with DM, HTN, and hypothyroidism who presents with pain in his neck near his port site worse with talking, eating, movement beginning on Monday and fever beginning on . The port was placed several months ago for temporary dialysis. He was told by his cafeteria table attendant to have the port removed, but he has been unable to attend an appointment to do so. Port site appears clean, non edematous and erythematous. WBC 13.7, Na 128, Cl 92, Glu 321, Mg 1.5, D bili 0.4, AST 73, procal 1.76. CT Chest shows pulmonary edema vs viral infection. Patient denies cough, wheezing, SOB. Aside from fever, he reports extreme fatigue over the past few days. Fluid intake and appetite at baseline. Allergies No Known Allergies Allergy (Verified 10/01/19 15:26) Home Medications: Metformin HCl 500 mg PO BID #60 tablet 03/18/18 - Past Medical/Surgical History Diabetic: Yes -: hypothyroid -: DM II -: obesity -: htn -: high cholesterol -: port placement - Social History Smoking Status: Never smoker Alcohol use: No CD- Drugs: No Caffeine use: Yes Place of Residence: Home Review of Systems 10-point ROS is otherwise unremarkable General: Fever, Malaise Musculoskeletal: Neck Pain Physical Examination - Physical Exam General: Alert, In no apparent distress, Oriented x3, Cooperative, Obese HEENT: Atraumatic, PERRLA, Mucous membr. moist/pink, EOMI, Sclerae nonicteric Neck: Supple, 2+ carotid pulse no bruit, No LAD, Without JVD or thyroid abnormality Respiratory: Clear to auscultation bilaterally, Normal air movement Cardiovascular: No edema, Normal pulses, Regular rate/rhythm, Normal S1 S2 Capillary refill: <2 Seconds Gastrointestinal: Normal bowel sounds, No tenderness Musculoskeletal: No tenderness Integumentary: No rashes, No breakdown, No significant lesion, No tenderness/swelling, No erythema, No warmth, No cyanosis Neurological: Normal speech, Normal strength at 5/5 x4 extr, Normal tone, Normal affect Lymphatics: No axilla or inguinal lymphadenopathy - Studies Laboratory Data (last 24 hrs) 11/28/20 18:30: PT 14.0 H, INR 1.21 11/28/20 18:30: WBC 13.70 H, Hgb 13.9, Hct 43.2, Plt Count 179 11/28/20 18:30: Sodium 128 L, Potassium 3.6, BUN 9, Creatinine 1.02, Glucose 321 H, Magnesium 1.5 L D, Total Bilirubin 1.0, AST 73 H, ALT 76, Alkaline Phosphatase 105 Assessment and Plan - Plan on tele, surgery consulted continue IV antibiotics, gentle IVF hydration blood cultures pending, UA pending A1c pending, continue home lantus, sliding scale insulin and accuchecks O2 as needed tylenol PRN for fever reconcile and continue home medications DVT ppx Discharge Plan: Home Plan to discharge in: 48 Hours - Advance Directives Does patient have a Living Will: No Does patient have a Durable POA for Healthcare: No - Code Status/Comfort Care Code Status Assessed: Yes (full code ) Critical Care: No Time Spent Managing Pts Care (In Minutes): 70
[2020-11-28] MEDS ORDERED: D50W 25 GM/50 ML SYRINGE IV PRN (22:35)
[2020-11-28] MEDS ORDERED: GLUCAGON 1 MG/VIAL IM PRN (22:35)
[2020-11-28] MEDS: NA CHLORIDE 0.9% 1,000 ML IV SCH (22:35)
[2020-11-28] MEDS ORDERED: ONDANSETRON 4 MG/2 ML VIAL IV PRN (22:35)
[2020-11-28] MEDS ORDERED: INSULIN GLARGINE 100 UNITS/ML SQ ONE (22:36)
[2020-11-28] MEDS ORDERED: Levofloxacin 750mg IV 750 MG/150 ML BAG IV ONE (22:39)
[2020-11-28 23:37] VITALS: BMI 45.9
[2020-11-28] MEDS ORDERED: VANCOMYCIN/NS 1 gm 1 GM/250 ML BAG IVPB ONE (23:45)
[2020-11-29] MEDS ORDERED: NA CHLORIDE 0.9% 250 ML ONE (00:54)
[2020-11-29] MEDS ORDERED: VANCOMYCIN 1 GM/VIAL ONE ×2 (00:54→20:32)
[2020-11-29] MEDS ORDERED: NA CHLORIDE 0.9% 1,000 ML ONE (00:54)
[2020-11-29] MEDS: ACETAMINOPHEN 500 MG TAB PO PRN ×3 (02:46→16:09)
[2020-11-29] MEDS ORDERED: ACETAMINOPHEN 500 MG TAB ONE ×3 (03:07→16:21)
[2020-11-29 04:30] LABS: Urine Appearance CLEAR (Clear); Urine Bilirubin NEGATIVE (Negative); Urine Blood 2+ (Negative); Urine Color YELLOW (Yellow); Urine Glucose 1+ (Negative); Urine Protein 2+ (Negative); Urine Specific Gravity 1.025 (1.005-1.030)
[2020-11-29] MEDS ORDERED: carvediloL 6.25 MG TAB ONE (04:54)
[2020-11-29 04:56] LABS: Basophils % 0.5 % (0-1.3); Hematocrit 37.3 % (39.6-49.0); Lymphocytes % 8.7 % (15.3-44.8); MPV 9.7 fL (7.6-11.3)
[2020-11-29 05:14] LABS: Urine Microscopic Reflex ORDER UMIC
[2020-11-29 05:15] LABS: ALT/SGPT 65 U/L (12-78); AST/SGOT 61 U/L (15-37); Albumin 2.6 g/dL (3.4-5.0); Alkaline Phosphatase 82 U/L (45-117); BUN Blood Urea Nitrogen 9 mg/dL (7-18); Bicarbonate 25 mmol/L (21-32); Bilirubin Total 0.7 mg/dL (0.2-1.0); Glucose Level 269 mg/dL (74-106); HDL Cholesterol 11 mg/dL (40-60); LDL Cholesterol, Calculated 59 (<130); Magnesium 1.7 mg/dL (1.8-2.4); Potassium 3.4 mmol/L (3.5-5.1); Sodium Level 132 mmol/L (136-145)
[2020-11-29 05:21] LABS: Urine Bacteria >50 /HPF (NONE SEEN); Urine Mucus 2+ /HPF (NONE SEEN)
[2020-11-29] MEDS: IBUPROFEN 400 MG TAB PO PRN ×2 (05:22→16:41)
[2020-11-29] MEDS: carvediloL 12.5 MG TAB PO SCH ×2 (05:22→17:32)
[2020-11-29] MEDS ORDERED: IBUPROFEN 400 MG TAB ONE ×2 (05:45→16:57)
[2020-11-29] MEDS ORDERED: POTASS/SODIUM PHOSPHATE 1 PKT POWD.PACK PO ONE (06:55)
[2020-11-29] MEDS ORDERED: POTASSIUM 25 MEQ EFFERV TAB PO ONE (06:57)
[2020-11-29] MEDS ORDERED: POTASS/SODIUM PHOSPHATE 1 PKT POWD.PACK ONE (07:39)
[2020-11-29] MEDS ORDERED: INSULIN GLARGINE 100 UNITS/ML SQ ONE (07:40)
[2020-11-29] MEDS ORDERED: POTASSIUM 25 MEQ EFFERV TAB ONE (07:43)
[2020-11-29] MEDS ORDERED: INSULIN -REGULAR HUMAN 50 UNIT/0.5 ML ML ONE ×3 (08:00→17:18)
[2020-11-29] MEDS: INSULIN -REGULAR HUMAN 50 UNIT/0.5 ML ML SQ SCH ×4 (08:19→21:34)
[2020-11-29] MEDS: INSULIN GLARGINE 100 UNITS/ML SQ SCH ×2 (08:19→22:17)
[2020-11-29] MEDS: NA CHLORIDE 0.9% 1,000 ML IV SCH ×3 (08:35→18:35)
[2020-11-29] MEDS ORDERED: POTASSIUM CL SA 10 MEQ TAB PO ONE (08:37)
[2020-11-29] MEDS: VANCOMYCIN 2 GM in NA CHLORIDE 0.9% 500 ML IVPB SCH ×2 (10:10→21:00)
--- NOTE | 2020-11-29 15:40 | P.PN ---
Subjective Date of Service: 11/29/20 Chief Complaint: port pain, fever Patient has no new complain. Stated pain at the site of the dialysis catheter has resolved. Blood culture is growing Gram positive cocci in clusters. No recorded fever. Physical Examination - Vital Signs Temperature: 97.3 F Blood Pressure: 99/74 Pulse: 91 Respirations: 19 Pulse Ox (%): 98 - Physical Exam General: Alert, In no apparent distress, Oriented x3 HEENT: Mucous membr. moist/pink Neck: JVD not distended Respiratory: Clear to auscultation bilaterally, Normal air movement Cardiovascular: Regular rate/rhythm, Normal S1 S2, No murmurs Gastrointestinal: Soft and benign, Non-distended, No tenderness Musculoskeletal: No swelling, No tenderness Integumentary: No rashes, Other (Right chest Permacath.) Neurological: Normal strength at 5/5 x4 extr, Cranial nerves 3-12 intact Lymphatics: No axilla or inguinal lymphadenopathy - Studies Laboratory Data (last 24 hrs) 11/28/20 18:30: PT 14.0 H, INR 1.21 11/28/20 18:30: WBC 13.70 H, Hgb 13.9, Hct 43.2, Plt Count 179 11/28/20 18:30: Sodium 128 L, Potassium 3.6, BUN 9, Creatinine 1.02, Glucose 321 H, Magnesium 1.5 L D, Total Bilirubin 1.0, AST 73 H, ALT 76, Alkaline Phosphat ase 105 Microbiology Data (last 24 hrs): 11/28/20 18:40 Blood - Blood Blood Culture Gram Stain - Final 11/28/20 18:30 Blood - Blood Blood Culture Gram Stain - Final Assessment And Plan - Current Problems (Diagnosis) (1) Gram-positive bacteremia Current Visit: Yes Status: Acute (2) Vascular dialysis catheter in place Current Visit: Yes Status: Acute (3) Diabetes mellitus Onset Date: 03/19/18 Current Visit: No Status: Chronic Qualifiers: Diabetes mellitus type: type 2 Diabetes mellitus prison insulin use: without terminal superintendent use Diabetes mellitus complication status: with ketoacidosis Diabetes mellitus complication detail: without coma Qualified Code(s): E11.10 - Type 2 diabetes mellitus with ketoacidosis without coma (4) Morbid obesity Onset Date: 03/19/18 Current Visit: No Status: Chronic - Plan Broad-spectrum antibiotic coverage-IV Levaquin and vancomycin. General surgery consulted to remove the dialysis catheter. Follow blood culture. Repeat blood culture today. Insulin sliding scale and Lantus insulin for glucose management.
--- NOTE | 2020-11-29 18:45 | P.CNS ---
Date of Consult: 11/29/20 PC: I was asked to see this 25-year-old male regards to removal of dialysis catheter. HPC: Patient apparently had episode of renal failure earlier this year. He a temporary dialysis catheter was placed. It was mentioned been removed but it had not been scheduled. He came in now because of fever chills and feeling unwell. PSHx: Placement of temporary dialysis catheter in the past PMHx: Diabetes Social Hx: No known allergies Sys R: No cough, wheeze, shortness of breath. Denies any urinary complaints. O/E: Awake alert stable HEENT: Within normal limits Chest: On the right upper chest the patient has a temporary dialysis catheter is been placed into the right IJ. On the anterior chest wall you can see the cuff is virtually hanging literally by a small thread of scar tissue. The line also appears to be prefilled of blood and clotted. Abd: Negative [place]: Intact Data: [] Impression: Redundant Port-A-Cath, possible source of FUO Plan: I will remove the redundant dialysis catheter. It is not working anyway at the moment. The patient understands the risk.
--- NOTE | 2020-11-29 18:48 | P.OP ---
Date of Service: 11/29/20 Findings and Operative Technique Preop: Redundant dialysis catheter with possible infection Postop: The same Procedure: Removal of temporary dialysis catheter Findings and technique: The patient was positioned head up in the bed. The right side of the neck was exposed. The catheter was gently grasped and a small portion of the scar tissue that remained was taken off of the dialysis catheter. The catheter gently slipped out from underneath the skin and a dressing was applied. The tip of this catheter has been sent for culture and sensitivities. Estimated blood loss 0 cc. No drains were placed. He was stable at the end of the procedure.
[2020-11-29] MEDS ORDERED: NA CHLORIDE 0.9% 500 ML ONE (20:32)
[2020-11-29] MEDS: ATORVASTATIN 20 MG TAB PO SCH (21:41)
[2020-11-29] MEDS ORDERED: Pharmacy Consult 1 EA XX PRN (23:00)
[2020-11-30] MEDS: Levofloxacin 750mg IV 750 MG/150 ML BAG IV SCH (00:11)
[2020-11-30] MEDS: ACETAMINOPHEN 500 MG TAB PO PRN (00:20)
[2020-11-30] MEDS: NA CHLORIDE 0.9% 1,000 ML IV SCH ×3 (04:35→17:27)
[2020-11-30] MEDS: carvediloL 12.5 MG TAB PO SCH ×2 (05:29→17:27)
[2020-11-30] MEDS: INSULIN -REGULAR HUMAN 50 UNIT/0.5 ML ML SQ SCH ×4 (07:30→21:11)
[2020-11-30] MEDS: INSULIN GLARGINE 100 UNITS/ML SQ SCH ×2 (08:00→21:12)
[2020-11-30 08:08] LABS: Absolute Lymphocytes (CBC) 1.5 K/uL (0.7-4.9); Basophils % 0.9 % (0-1.3); Hematocrit 36.8 % (39.6-49.0); Lymphocytes % 19.7 % (15.3-44.8); MPV 10.4 fL (7.6-11.3); RBC Red Blood Cell Count 4.84 M/uL (4.33-5.43)
[2020-11-30 08:27] LABS: BUN Blood Urea Nitrogen 10 mg/dL (7-18); Bicarbonate 25 mmol/L (21-32); Glucose Level 177 mg/dL (74-106); Potassium 3.4 mmol/L (3.5-5.1); Sodium Level 137 mmol/L (136-145)
[2020-11-30] MEDS: VANCOMYCIN 2 GM in NA CHLORIDE 0.9% 500 ML IVPB SCH ×2 (11:17→21:11)
--- NOTE | 2020-11-30 13:56 | P.PN ---
Subjective Date of Service: 11/30/20 Chief Complaint: port pain, fever Patient has no new complain. Blood culture is growing coagulase positive Staph. No recorded fever. Physical Examination - Vital Signs Temperature: 98.4 F Blood Pressure: 129/70 Pulse: 95 Respirations: 16 Pulse Ox (%): 94 - Physical Exam General: Alert, In no apparent distress, Oriented x3 HEENT: Mucous membr. moist/pink Neck: JVD not distended Respiratory: Clear to auscultation bilaterally, Normal air movement Cardiovascular: Regular rate/rhythm Gastrointestinal: Soft and benign, Non-distended Musculoskeletal: No swelling Integumentary: No rashes Neurological: Normal strength at 5/5 x4 extr - Studies Microbiology Data (last 24 hrs): 11/28/20 18:30 Blood - Blood Blood Culture Gram Stain - Final 11/28/20 18:40 Blood - Blood Blood Culture Gram Stain - Final Assessment And Plan - Current Problems (Diagnosis) (1) Gram-positive bacteremia Current Visit: Yes Status: Acute (2) Vascular dialysis catheter in place Current Visit: Yes Status: Acute (3) Diabetes mellitus Onset Date: 03/19/18 Current Visit: No Status: Chronic Qualifiers: Diabetes mellitus type: type 2 Diabetes mellitus exterminator helper termite insulin use: without chcf use Diabetes mellitus complication status: with ketoacidosis Diabetes mellitus complication detail: without coma Qualified Code(s): E11.10 - Type 2 diabetes mellitus with ketoacidosis without coma (4) Morbid obesity Onset Date: 03/19/18 Current Visit: No Status: Chronic - Plan Blood cultures growing coagulase positive Staph Broad-spectrum antibiotic coverage-IV Levaquin and vancomycin. Dialysis catheter has been removed and catheter tip sent for culture. Follow blood cultures. Infectious disease consult. Insulin sliding scale and Lantus insulin for glucose management.
[2020-11-30] MEDS: ATORVASTATIN 20 MG TAB PO SCH (21:11)
[2020-12-01] MEDS: IBUPROFEN 400 MG TAB PO PRN (00:19)
[2020-12-01] MEDS: Levofloxacin 750mg IV 750 MG/150 ML BAG IV SCH (00:19)
[2020-12-01 05:44] LABS: Absolute Lymphocytes (CBC) 3.1 K/uL (0.7-4.9); Hematocrit 38.5 % (39.6-49.0); Lymphocytes % 27.3 % (15.3-44.8); MPV 10.6 fL (7.6-11.3); RBC Red Blood Cell Count 4.97 M/uL (4.33-5.43)
--- NOTE | 2020-12-01 06:04 | P.PN ---
Subjective Date of Service: 12/01/20 Chief Complaint: port pain, fever Subjective: Improving (feels he's getting strength back / improving. still fatigued) Review of Systems 10-point ROS is otherwise unremarkable Physical Examination - Vital Signs Temperature: 97.4 F Blood Pressure: 132/89 Pulse: 90 Respirations: 16 Pulse Ox (%): 91 - Studies Microbiology Data (last 24 hrs): 11/28/20 18:30 Blood - Blood Blood Culture Gram Stain - Final 11/28/20 18:40 Blood - Blood Blood Culture Gram Stain - Final Assessment & Plan Physician Review Additional Text: Physical Exam General: Alert, In no apparent distress, Oriented x3 HEENT: Mucous membr. moist/pink Respiratory: Clear to auscultation bilaterally, Normal air movement Cardiovascular: Regular rate/rhythm Gastrointestinal: Soft and benign, Non-distended Musculoskeletal: No swelling Integumentary: R chest wall: prior cath location without any erythema, no drainage Problem list Gram-positive bacteremia, MSSA Diabetes mellitus type 2, insulin-dependent Super morbid obesity Blood cultures grew MSSA x2 Was on broad-spectrum antibiotics with IV Levaquin and vancomycin. Changed to Ancef given cultures Repeat blood cultures today Infectious disease consulted Catheter tip sent for culture, removed on 11/29 Follow blood cultures. Insulin sliding scale and Lantus insulin for glucose management. Dispo: Anticipate discharge home in ~1-2 days Time Spent Managing Pts Care (In Minutes): 35
[2020-12-01] MEDS: carvediloL 12.5 MG TAB PO SCH ×2 (06:07→17:36)
[2020-12-01 06:08] LABS: ALT/SGPT 101 U/L (12-78); Albumin 2.4 g/dL (3.4-5.0); Alkaline Phosphatase 164 U/L (45-117); BUN Blood Urea Nitrogen 7 mg/dL (7-18); Bicarbonate 27 mmol/L (21-32); Bilirubin Total 0.4 mg/dL (0.2-1.0); Glucose Level 195 mg/dL (74-106); Protein, Total 6.6 g/dL (6.4-8.2); Sodium Level 139 mmol/L (136-145)
[2020-12-01 06:09] LABS: AST/SGOT 108 U/L (15-37); Potassium 3.1 mmol/L (3.5-5.1)
[2020-12-01 06:10] LABS: Magnesium 2.4 mg/dL (1.8-2.4)
[2020-12-01] MEDS ORDERED: POTASSIUM 25 MEQ EFFERV TAB PO ONE (06:18)
[2020-12-01] MEDS ORDERED: POTASSIUM CL SA 10 MEQ TAB PO ONE ×2 (08:00→17:00)
[2020-12-01] MEDS: INSULIN GLARGINE 100 UNITS/ML SQ SCH ×2 (08:55→20:25)
[2020-12-01] MEDS: INSULIN -REGULAR HUMAN 50 UNIT/0.5 ML ML SQ SCH ×4 (08:56→20:23)
[2020-12-01] MEDS: NA CHLORIDE 0.9% 1,000 ML IV SCH ×2 (08:59→10:35)
[2020-12-01] MEDS: CEFAZOLIN 2 GM in NA CHLORIDE 0.9% 100 ML IVPB SCH ×2 (09:49→16:27)
--- NOTE | 2020-12-01 11:22 | P.CNS ---
Date of Consult: 12/01/20 Chief Complaint: port pain, fever History of Present Illness: The patient is a 25 year old male with a past medical history of diabetes, hypertension, and hypothyroidism who presented to the emergency department due to pain in his neck near his Port-A-Cath site. Patient states that the pain was worse with talking, eating, and movement. Patient states with pain began on Monday and then he began to have fevers on . Patient states he had the Port-A-Cath placed about a year 12 when he needed dialysis due to kidney failure, patient received dialysis for about a month. He was instructed by his employee relations advisor to get the port removed however was unable to be seen. Blood c ultures growing a methicillin-susceptible Staphylococcus aureus, source of infection infected port. Port has since been removed. Repeat blood cultures pending. Patient currently denies nausea, vomiting, chest pain. Patient reports intermittent shortness of breath and diarrhea. Allergies No Known Allergies Allergy (Verified 10/01/19 15:26) Home Medications: Atorvastatin Calcium 1 tab PO BEDTIME 11/29/20 Carvedilol [Coreg] 1 tab PO BID 11/29/20 Insulin Glargine,Hum.rec.anlog [Lantus] 15 units SQ SEECOM 11/29/20 Insulin Glargine,Hum.rec.anlog [Lantus] 17 unit SQ SEECOM 11/29/20 Nifedipine [Nifedipine ER] 1 tab PO DAILY 11/29/20 - Past Medical/Surgical History Diabetic: Yes -: hypothyroid -: was hospitalized 02/2017 for hyperglycemia, quit taking insulin per his MD -: DM II -: obesity -: htn -: high cholesterol -: port placement - Social History Alcohol use: No CD- Drugs: No Caffeine use: Yes Place of Residence: Home Review of Systems 10-point ROS is otherwise unremarkable Physical Examination Temp Pulse Resp BP Pulse Ox 97.3 F 80 18 125/73 90 L 12/01/20 08:00 12/01/20 08:00 12/01/20 08:00 12/01/20 08:00 12/01/20 08:00 General: Alert, In no apparent distress, Oriented x3, Obese HEENT: Atraumatic, Normocephalic Neck: Supple, 2+ carotid pulse no bruit Respiratory: Clear to auscultation bilaterally, Normal air movement Cardiovascular: No edema, Normal pulses, Regular rate/rhythm, Normal S1 S2 Capillary refill: <2 Seconds Gastrointestinal: Normal bowel sounds, Soft and benign Musculoskeletal: No clubbing, No swelling, No contractures Conclusions/Impression: Antibiotics: Current: Cephazolin Start: 12/01 Stop:-- Dc: Vancomycin Start: 11/29 Stop: 11/30 Levaquin Start: 11/29 Stop: 12/01 Assessment/plan Bacteremia due to infected port Blood culture performed on 11/28 growing a methicillin-susceptible Stap hylococcus aureus in 4/4 bottles. Blood cultures taken from catheter tip also showing MSSA. Patient had port removed on 11/29. Repeat blood cultures pending. Echo pending. Antibiotics de escalated from vancomycin and Levaquin 2 Cephazolin based on susceptibility panel. Patient will need antibiotics for 2 weeks following a negative blood culture report. Protein caloric malnutrition Low albumin at 2.4, recommend supplemental Ensure protein drinks Hypothyroidism, diabetes, morbid obesity, anemia Medical management per primary team Continue monitor CBC and BMP Continue to monitor for signs of infection Plan of care discussed with Dr. Lang Thank you for consultation.
[2020-12-01] MEDS: ATORVASTATIN 20 MG TAB PO SCH (20:23)
[2020-12-01] MEDS: LACTOBACILLUS/ACIDOPHILUS TAB PO SCH (20:23)
[2020-12-02] MEDS: CEFAZOLIN 2 GM in NA CHLORIDE 0.9% 100 ML IVPB SCH ×3 (01:18→17:31)
[2020-12-02] MEDS ORDERED: CEFAZOLIN SODIUM 1 GM/VIAL ONE ×4 (01:25→09:05)
--- NOTE | 2020-12-02 05:57 | P.PN ---
Subjective Date of Service: 12/02/20 Chief Complaint: port pain, fever Subjective: Improving (feeling better every day, no new complaints) Review of Systems 10-point ROS is otherwise unremarkable Physical Examination - Vital Signs Temperature: 97.6 F Blood Pressure: 140/70 Pulse: 98 Respirations: 18 Pulse Ox (%): 94 - Studies Microbiology Data (last 24 hrs): 11/28/20 18:30 Blood - Blood Aerobic Blood Culture - Final Staph Aureus 11/28/20 18:30 Blood - Blood Blood Culture Gram Stain - Final 11/28/20 18:30 Blood - Blood Anaerobic Blood Culture - Final Staph Aureus 11/28/20 18:30 Blood - Blood Gram Stain - Final 11/28/20 18:40 Blood - Blood Aerobic Blood Culture - Final Staph Aureus 11/28/20 18:40 Blood - Blood Blood Culture Gram Stain - Final 11/28/20 18:40 Blood - Blood Anaerobic Blood Culture - Final Staph Aureus 11/28/20 18:40 Blood - Blood Gram Stain - Final Assessment & Plan Physician Review Additional Text: Physical Exam General: Alert, In no apparent distress, Oriented x3 HEENT: Mucous membr. moist/pink, normal conjunctiva Respiratory: Clear to auscultation bilaterally, Normal air movement Cardiovascular: Regular rate/rhythm Gastrointestinal: Soft and benign, Non-distended Musculoskeletal: No swelling Integumentary: R chest wall: prior cath location without any erythema, no drainage Problem list Gram-positive bacteremia, MSSA Diabetes mellitus type 2, insulin-dependent Super morbid obesity Blood cultures grew MSSA x2 Was on broad-spectrum antibiotics with IV Levaquin and vancomycin. Changed to Ancef given cultures Repeat blood cultures pending from 12/01 Infectious disease consulted -recommend MARGE, given patient's risk for endocarditis TTE ordered and done this morning, awaiting read Catheter tip sent for culture, removed on 11/29 Follow blood cultures. Insulin sliding scale and Lantus insulin for glucose management. Patient is unsure if he would want to be transferred for MARGE, states he wants to talk with his family will wait for TTE and 12/01 blood culture results Dispo: possible transfer tomorrow for [facility] Time Spent Managing Pts Care (In Minutes): 35
[2020-12-02] MEDS: carvediloL 12.5 MG TAB PO SCH ×2 (06:14→17:31)
[2020-12-02 06:26] LABS: Absolute Lymphocytes (CBC) 3.9 K/uL (0.7-4.9); Basophils % 0.7 % (0-1.3); Hematocrit 39.5 % (39.6-49.0); Lymphocytes % 29.5 % (15.3-44.8); MPV 10.4 fL (7.6-11.3); RBC Red Blood Cell Count 5.11 M/uL (4.33-5.43)
[2020-12-02 06:50] LABS: BUN Blood Urea Nitrogen 7 mg/dL (7-18); Bicarbonate 27 mmol/L (21-32); Glucose Level 164 mg/dL (74-106); Phosphorus 2.5 mg/dL (2.5-4.9); Potassium 3.7 mmol/L (3.5-5.1); Sodium Level 140 mmol/L (136-145)
[2020-12-02] MEDS: INSULIN -REGULAR HUMAN 50 UNIT/0.5 ML ML SQ SCH ×4 (07:30→20:44)
[2020-12-02] MEDS: LACTOBACILLUS/ACIDOPHILUS TAB PO SCH ×2 (07:41→20:43)
[2020-12-02] MEDS: INSULIN GLARGINE 100 UNITS/ML SQ SCH ×2 (08:34→20:43)
[2020-12-02] MEDS ORDERED: POTASSIUM CL SA 10 MEQ TAB PO ONE (09:00)
--- NOTE | 2020-12-02 11:13 | P.PN ---
Subjective Date of Service: 12/02/20 Chief Complaint: port pain, fever Patient seen examined at bedside, repeat blood cultures pending. Patient states he is feeling well and denies any acute complaints. Recommend transfer for trans esophageal echocardiogram due to Staph aureus bacteremia. Review of Systems 10-point ROS is otherwise unremarkable Physical Examination - Vital Signs Temperature: 97.2 F Blood Pressure: 107/60 Pulse: 82 Respirations: 19 Pulse Ox (%): 93 - Studies Laboratory Last Values WBC 13.70 K/uL (4.3-10.9) H 11/28/20 18:30 RBC 5.59 M/uL (4.33-5.43) H 11/28/20 18:30 Hgb 13.9 g/dL (13.6-17.9) 11/28/20 18: Hct 43.2 % (39.6-49.0) 11/28/20 18:30 MCV 77.3 fL (80-100) L 11/28/20 18:30 MCH 24.9 pg (27.0-35.0) L 11/28/20 18:30 MCHC 32.2 g/dL (32.0-36.0) 11/28/20 18:30 RDW 14.9 % (12.1-15.2) 11/28/20 18:30 Plt Count 179 K/uL (152-406) 11/28/20 18:30 MPV 10.0 fL (7.6-11.3) 11/28/20 18:30 Neutrophils % 87.0 % (41.7-73.7) H 11/28/20 18:30 Lymphocytes % 6.5 % (15.3-44.8) L 11/28/20 18:30 Monocytes % 6.2 % (3.3-12.3) 11/28/20 18:30 Eosinophils % 0.0 % (0-4.4) 11/28/20 18: Basophils % 0.3 % (0-1.3) 11/28/20 18:30 Absolute Neutrophils 11.9 K/uL (1.8-8.0) H 11/28/20 18:30 Absolute Lymphocytes 0.9 K/uL (0.7-4.9) 11/28/20 18:30 Absolute Monocytes 0.9 K/uL (0.1-1.3) 11/28/20 18:30 Absolute Eosinophils 0.0 K/uL (0-0.5) 11/28/20 18:30 Absolute Basophils 0.0 K/uL (0-0.5) 11/28/20 18:30 Dohle Bodies Noted 11/28/20 18:30 Platelet Estimate Adeq 11/28/20 18:30 Giant Platelets Noted 11/28/20 18:30 Polychromasia Slight 11/28/20 18:30 Morphology Comment Not seen (NOT SEEN) 11/28/20 18:30 PT 14.0 SECONDS (9.5-12.5) H 11/28/20 18:30 INR 1.21 11/28/20 18:30 Sodium 128 mmol/L (136-145) L 11/28/20 18:30 Potassium 3.6 mmol/L (3.5-5.1) 11/28/20 18:30 Chloride 92 mmol/L (98-107) L 11/28/20 18:30 Carbon Dioxide 26 mmol/L (21-32) 11/28/20 18:30 BUN 9 mg/dL (7-18) 11/28/20 18:30 Creatinine 1.02 mg/dL (0.55-1.3) 11/28/20 18:30 Estimated GFR 88 mL/min (=/>90) L 11/28/20 18:30 Glucose 321 mg/dL (74-106) H 11/28/20 18:30 Lactic Acid 2.0 mmol/L (0.4-2.0) 11/28/20 18:40 Calcium 8.9 mg/dL (8.5-10.1) 11/28/20 18:30 Magnesium 1.5 mg/dL (1.8-2.4) L D 11/28/20 18:30 Total Bilirubin 1.0 mg/dL (0.2-1.0) 11/28/20 18:30 Direct Bilirubin 0.4 mg/dL (0-0.2) H 11/28/20 18:30 AST 73 U/L (15-37) H 11/28/20 18:30 ALT 76 U/L (12-78) 11/28/20 18:30 Alkaline Phosphatase 105 U/L (45-117) 11/28/20 18:30 Rapid Troponin I < 0.02 ng/mL (0.0-0.045) 11/28/20 18:30 NT-Pro-B Natriuret Pep 80 pg/mL (<125) 11/28/20 18:30 Serum Total Protein 8.5 g/dL (6.4-8.2) H 11/28/20 18:30 Albumin 3.2 g/dL (3.4-5.0) L 11/28/20 18:30 Globulin 5.3 g/dL (2.3-3.5) H 11/28/20 18:30 Albumin/Globulin Ratio 0.6 (1.1-1.8) L 11/28/20 18:30 Procalcitonin 1.76 ng/mL (<0.050) H 11/28/20 18:30 SARS-CoV-2 Rap RNA(RT-PCR) Negative (NEGATIVE) 11/28/20 18:40 Smear Scan Ok (OK) 11/28/20 18:30 Microbiology Data (last 24 hrs): 11/28/20 18:30 Blood - Blood Aerobic Blood Culture - Final Staph Aureus 11/28/20 18:30 Blood - Blood Blood Culture Gram Stain - Final 11/28/20 18:30 Blood - Blood Anaerobic Blood Culture - Final Staph Aureus 11/28/20 18:30 Blood - Blood Gram Stain - Final 11/28/20 18:40 Blood - Blood Aerobic Blood Culture - Final Staph Aureus 11/28/20 18:40 Blood - Blood Blood Culture Gram Stain - Final 11/28/20 18:40 Blood - Blood Anaerobic Blood Culture - Final Staph Aureus 11/28/20 18:40 Blood - Blood Gram Stain - Final Assessment And Plan - Plan Physical exam: General: Alert, In no apparent distress, Oriented x3, Obese HEENT: Atraumatic, Normocephalic Neck: Supple, 2+ carotid pulse no bruit Respiratory: Clear to auscultation bilaterally, Normal air movement Cardiovascular: No edema, Normal pulses, Regular rate/rhythm, Normal S1 S2 Capillary refill: <2 Seconds Gastrointestinal: Normal bowel sounds, Soft and benign Musculoskeletal: No clubbing, No swelling, No contractures Conclusions/Impression: Antibiotics: Current: Cephazolin Start: 12/01 Stop:-- Dc: Vancomycin Start: 11/29 Stop: 11/30 Levaquin Start: 11/29 Stop: 12/01 Assessment/plan Bacteremia due to infected port Blood culture performed on 11/28 growing a methicillin-susceptible Staphylococcus aureus in 4/4 bottles. Blood cultures taken from catheter tip also showing MSSA. Repeat blood cultures performed on 11/29 still growing Staph aureus, however taken prior to removal of infected port. Source of infection controlled on 11/29 when port was removed. Repeat blood cultures on 12/01 pending. Echo pending. Antibiotics de escalated from vancomycin and Levaquin to Cephazolin based on susceptibility panel. Patient will need antibiotics for 2 weeks following a negative blood culture report. Recommending a transesophageal echocardiogram due to Staph coccus aureus bacteremia, however patient is uninsured. Protein caloric malnutrition Low albumin at 2.4, recommend supplemental Ensure protein drinks Diabetes Hemoglobin A1c 9.0%. Continue strict glucose monitoring for infection control. Hypothyroidism, diabetes, morbid obesity, anemia Medical management per primary team Continue monitor CBC and BMP Continue to monitor for signs of infection Plan of care discussed with Dr. Lang Thank you for consultation. Physician Review Additional Text: Physical Exam General: Alert, In no apparent distress, Oriented x3 HEENT: Mucous membr. moist/pink Respiratory: Clear to auscultation bilaterally, Normal air movement Cardiovascular: Regular rate/rhythm Gastrointestinal: Soft and benign, Non-distended Musculoskeletal: No swelling Integumentary: R chest wall: prior cath location without any erythema, no drainage Problem list Gram-positive bacteremia, MSSA Diabetes mellitus type 2, insulin-dependent Super morbid obesity Blood cultures grew MSSA x2 Was on broad-spectrum antibiotics with IV Levaquin and vancomycin. Changed to Ancef given cultures Repeat blood cultures today Infectious disease consulted Catheter tip sent for culture, removed on 11/29 Follow blood cultures. Insulin sliding scale and Lantus insulin for glucose management. Dispo: Anticipate discharge home in ~1-2 days
[2020-12-02] MEDS: ATORVASTATIN 20 MG TAB PO SCH (20:43)
[2020-12-03] MEDS: CEFAZOLIN 2 GM in NA CHLORIDE 0.9% 100 ML IVPB SCH ×2 (00:29→08:22)
[2020-12-03] MEDS: carvediloL 12.5 MG TAB PO SCH ×2 (06:05→17:18)
[2020-12-03 06:40] LABS: Basophils % 0.8 % (0-1.3); Hematocrit 41.4 % (39.6-49.0); Lymphocytes % 34.6 % (15.3-44.8); MPV 9.2 fL (7.6-11.3); RBC Red Blood Cell Count 5.27 M/uL (4.33-5.43)
[2020-12-03 07:08] LABS: ALT/SGPT 87 U/L (12-78); AST/SGOT 106 U/L (15-37); Albumin 2.7 g/dL (3.4-5.0); Alkaline Phosphatase 145 U/L (45-117); BUN Blood Urea Nitrogen 8 mg/dL (7-18); Bicarbonate 29 mmol/L (21-32); Bilirubin Direct 0.1 mg/dL (0-0.2); Bilirubin Total 0.4 mg/dL (0.2-1.0); Glucose Level 162 mg/dL (74-106); Potassium 3.4 mmol/L (3.5-5.1); Protein, Total 7.1 g/dL (6.4-8.2); Sodium Level 141 mmol/L (136-145)
[2020-12-03] MEDS ORDERED: KCL 20 MEQ/100 mL IVPB 20 MEQ/100 ML BAG IV SCH (08:00)
[2020-12-03 08:08] LABS: Blood Morphology Comment NOT SEEN (NOT SEEN); Platelet Estimate ADEQ
--- NOTE | 2020-12-03 08:19 | ECHO ---
HEIGHT: 5 ft 10 in WEIGHT: 320 lb 0.016 oz DATE OF STUDY: 12/02/[address]: Abran John MD 2-DIMENSIONAL: YES M.MODE: YES DOPPLER: YES COLOR FLOW: YES TDS: YES PORTABLE: NO DEFINITY: NO BUBBLE STUDY: NO DIAGNOSIS: VEGETATION CARDIAC HISTORY: CATHERIZATION: SURGERY: PROSTHETIC VALVE: PACEMAKER: MEASUREMENTS (cm) DIASTOLIC (NORMALS) SYSTOLIC (NORMALS) IVSd 1.0 (0.6-1.2) LA Diam 3.9 (1.9-4.0) LVEF 65-69% LVIDd 5.2 (3.5-5.7) LVIDs 3.9 (2.0-3.5) %FS % LVPWd 1.3 (0.6-1.2) Ao Diam 2.9 (2.0-3.7) 2 DIMENSIONAL ASSESSMENT: RIGHT ATRIUM: NORMAL LEFT ATRIUM: NORMAL RIGHT VENTRICLE: NORMAL LEFT VENTRICLE: NORMAL TRICUSPID VALVE: NORMAL MITRAL VALVE: NORMAL PULMONIC VALVE: NORMAL AORTIC VALVE: NORMAL PERICARDIAL EFFUSION: NONE AORTIC ROOT: NORMAL LEFT VENTRICULAR WALL MOTION: NORMAL DOPPLER/COLOR FLOW: NORMAL COMMENTS: NORMAL 2D ECHOCARDIOGRAM. NO VEGETATION SEEN. NO EFFUSION. TECHNOLOGIST: Essence FERGUSON
[2020-12-03] MEDS: INSULIN -REGULAR HUMAN 50 UNIT/0.5 ML ML SQ SCH ×4 (08:21→20:25)
[2020-12-03] MEDS: INSULIN GLARGINE 100 UNITS/ML SQ SCH ×2 (08:21→20:24)
[2020-12-03] MEDS: LACTOBACILLUS/ACIDOPHILUS TAB PO SCH ×2 (08:22→20:24)
[2020-12-03] MEDS ORDERED: CEFAZOLIN SODIUM 1 GM/VIAL ONE ×2 (08:34→23:39)
[2020-12-03] MEDS ORDERED: NA CHLORIDE 0.9% 250 ML ONE (08:35)
[2020-12-03 09:26] VITALS: O2SAT 96
[2020-12-03] MEDS ORDERED: VANCOMYCIN 1.25 GM in NA CHLORIDE 0.9% 250 ML IVPB SCH (11:00)
[2020-12-03] MEDS ORDERED: NAFCILLIN SODIUM 2 GM in NA CHLORIDE 0.9% 100 ML IVPB SCH (12:00)
[2020-12-03] MEDS: OXACILLIN SODIUM 2 GM in NA CHLORIDE 0.9% 100 ML IVPB SCH ×2 (12:11→17:26)
--- NOTE | 2020-12-03 12:14 | P.PN ---
Subjective Date of Service: 12/03/20 Chief Complaint: port pain, fever Patient seen examined at bedside, repeat blood cultures still positive. Antibiotics changed from cefazolin to IV oxacillin. Patient will need to be sent out for transesophageal echocardiogram. Review of Systems 10-point ROS is otherwise unremarkable Physical Examination - Vital Signs Temperature: 97.6 F Blood Pressure: 140/92 Pulse: 77 Respirations: 23 Pulse Ox (%): 95 - Studies Laboratory Last Values WBC 13.70 K/uL (4.3-10.9) H 11/28/20 18:30 RBC 5.59 M/uL (4.33-5.43) H 11/28/20 18:30 Hgb 13.9 g/dL (13.6-17.9) 11/28/20 18: Hct 43.2 % (39.6-49.0) 11/28/20 18:30 MCV 77.3 fL (80-100) L 11/28/20 18:30 MCH 24.9 pg (27.0-35.0) L 11/28/20 18:30 MCHC 32.2 g/dL (32.0-36.0) 11/28/20 18:30 RDW 14.9 % (12.1-15.2) 11/28/20 18:30 Plt Count 179 K/uL (152-406) 11/28/20 18:30 MPV 10.0 fL (7.6-11.3) 11/28/20 18:30 Neutrophils % 87.0 % (41.7-73.7) H 11/28/20 18:30 Lymphocytes % 6.5 % (15.3-44.8) L 11/28/20 18:30 Monocytes % 6.2 % (3.3-12.3) 11/28/20 18:30 Eosinophils % 0.0 % (0-4.4) 11/28/20 18: Basophils % 0.3 % (0-1.3) 11/28/20 18:30 Absolute Neutrophils 11.9 K/uL (1.8-8.0) H 11/28/20 18:30 Absolute Lymphocytes 0.9 K/uL (0.7-4.9) 11/28/20 18:30 Absolute Monocytes 0.9 K/uL (0.1-1.3) 11/28/20 18:30 Absolute Eosinophils 0.0 K/uL (0-0.5) 11/28/20 18:30 Absolute Basophils 0.0 K/uL (0-0.5) 11/28/20 18:30 Dohle Bodies Noted 11/28/20 18:30 Platelet Estimate Adeq 11/28/20 18:30 Giant Platelets Noted 11/28/20 18:30 Polychromasia Slight 11/28/20 18:30 Morphology Comment Not seen (NOT SEEN) 11/28/20 18:30 PT 14.0 SECONDS (9.5-12.5) H 11/28/20 18:30 INR 1.21 11/28/20 18:30 Sodium 128 mmol/L (136-145) L 11/28/20 18:30 Potassium 3.6 mmol/L (3.5-5.1) 11/28/20 18:30 Chloride 92 mmol/L (98-107) L 11/28/20 18:30 Carbon Dioxide 26 mmol/L (21-32) 11/28/20 18:30 BUN 9 mg/dL (7-18) 11/28/20 18:30 Creatinine 1.02 mg/dL (0.55-1.3) 11/28/20 18:30 Estimated GFR 88 mL/min (=/>90) L 11/28/20 18:30 Glucose 321 mg/dL (74-106) H 11/28/20 18:30 Lactic Acid 2.0 mmol/L (0.4-2.0) 11/28/20 18:40 Calcium 8.9 mg/dL (8.5-10.1) 11/28/20 18:30 Magnesium 1.5 mg/dL (1.8-2.4) L D 11/28/20 18:30 Total Bilirubin 1.0 mg/dL (0.2-1.0) 11/28/20 18:30 Direct Bilirubin 0.4 mg/dL (0-0.2) H 11/28/20 18:30 AST 73 U/L (15-37) H 11/28/20 18:30 ALT 76 U/L (12-78) 11/28/20 18:30 Alkaline Phosphatase 105 U/L (45-117) 11/28/20 18:30 Rapid Troponin I < 0.02 ng/mL (0.0-0.045) 11/28/20 18:30 NT-Pro-B Natriuret Pep 80 pg/mL (<125) 11/28/20 18:30 Serum Total Protein 8.5 g/dL (6.4-8.2) H 11/28/20 18:30 Albumin 3.2 g/dL (3.4-5.0) L 11/28/20 18:30 Globulin 5.3 g/dL (2.3-3.5) H 11/28/20 18:30 Albumin/Globulin Ratio 0.6 (1.1-1.8) L 11/28/20 18:30 Procalcitonin 1.76 ng/mL (<0.050) H 11/28/20 18:30 SARS-CoV-2 Rap RNA(RT-PCR) Negative (NEGATIVE) 11/28/20 18:40 Smear Scan Ok (OK) 11/28/20 18:30 Assessment And Plan - Plan Physical exam: General: Alert, In no apparent distress, Oriented x3, Obese HEENT: Atraumatic, Normocephalic Neck: Supple, 2+ carotid pulse no bruit Respiratory: Clear to auscultation bilaterally, Normal air movement Cardiovascular: No edema, Normal pulses, Regular rate/rhythm, Normal S1 S2 Capillary refill: <2 Seconds Gastrointestinal: Normal bowel sounds, Soft and benign Musculoskeletal: No clubbing, No swelling, No contractures Conclusions/Impression: Antibiotics: Current: Oxacillin Start: 12/03 stop: -- Dc: Vancomycin Start: 11/29 Stop: 11/30 Cephazolin Start: 12/01 Stop: 12/03 Levaquin Start: 11/29 Stop: 12/01 Assessment/plan Bacteremia due to infected port Blood culture performed on 11/28 growing a methicillin-susceptible Staphyloco ccus aureus in 4/4 bottles. Blood cultures taken from catheter tip also showing MSSA. Repeat blood cultures performed on 11/29 still growing Staph aureus, however taken prior to removal of infected port. Source of infection controlled on 11/29 when port was removed. Repeat blood cultures performed on 12/01 preliminary results show gram-positive cocci. No other source of infection, and high clinical concern for kaw valve infective endocarditis. Patient will need to be sent out for trans esophageal echocardiogram. In the meantime will treat as kaw valve endocarditis, continue with oxacillin for the next 4-6 weeks. Protein caloric malnutrition Low albumin at 2.4, recommend supplemental Ensure protein drinks Diabetes Hemoglobin A1c 9.0%. Continue strict glucose monitoring for infection control. Hypothyroidism, diabetes, morbid obesity, anemia Medical management per primary team Continue monitor CBC and BMP Continue to monitor for signs of infection Plan of care discussed with Dr. Lang Thank you for consultation.
[2020-12-03] MEDS: CEFAZOLIN 2 GM in NA CHLORIDE 0.9% 50 ML IVPB SCH (16:29)
--- NOTE | 2020-12-03 17:18 | P.PN ---
Subjective Date of Service: 12/03/20 Chief Complaint: port pain, fever Subjective: No new changes (feeling ok, no new changes. blood cultures still positive.) Review of Systems 10-point ROS is otherwise unremarkable Physical Examination - Vital Signs Temperature: 97.0 F Blood Pressure: 132/69 Pulse: 78 Respirations: 24 Pulse Ox (%): 93 Assessment & Plan Physician Review Additional Text: Physical Exam General: Alert, In no apparent distress, Oriented x3 HEENT: normal conjunctiva Respiratory: Clear to auscultation bilaterally, Normal air movement Cardiovascular: Regular rate/rhythm Gastrointestinal: Soft and benign, Non-distended Musculoskeletal: No swelling Integumentary: R chest wall: prior cath location without any erythema, no drainage Problem list Gram-positive bacteremia, MSSA Diabetes mellitus type 2, insulin-dependent Super morbid obesity Blood cultures grew MSSA x3 Was on broad-spectrum antibiotics with IV Levaquin and vancomycin. Changed to Ancef given cultures, ID recommends changing again due to continued positive cultures (12/01) high risk / concern for endocarditis, ID recommends transfer for [facility] TTE without vegetation Catheter tip sent for culture, removed on 11/29 - +staph Insulin sliding scale and Lantus insulin for glucose management. Dispo: initiate transfer for [facility] Time Spent Managing Pts Care (In Minutes): 35
[2020-12-03] MEDS: ATORVASTATIN 20 MG TAB PO SCH (20:24)
[2020-12-03 20:45] VITALS: TEMP 96.9
[2020-12-04] MEDS: OXACILLIN SODIUM 2 GM in NA CHLORIDE 0.9% 100 ML IVPB SCH ×2
[2020-12-04 00:05] VITALS: BP 135/74
[2020-12-04] MEDS: CEFAZOLIN 2 GM in NA CHLORIDE 0.9% 50 ML IVPB SCH (00:48)
--- NOTE | 2020-12-04 04:48 | P.DS ---
Admission Date: 11/28/20 Discharge Date: 12/04/20 Disposition: TRANSFER TO [facility] Discharge Condition: FAIR Reason for Admission: port pain, fever Consultations: General surgeryDr. Patino Infectious diseaseDrDelmis Lang Procedures: Chest x-ray 11/28/2020 FINDINGS: Portable technique limits examination quality. Mild interstitial pulmonary opacities are present probably representing mild interstitial edema or a viral infection. The heart is upper limit normal in size. No displaced fractures.Right-sided venous catheter its tip in the SVC. IMPRESSION: Mild interstitial edema versus viral infection. CT chest 11/28/2020 FINDINGS: No evidence of pulmonary thromboembolism. No acute aortic finding demonstrated. Mild interstitial edema suspected. Linear atelectasis is present in the right base. No focal infiltrate is detected. No significant pericardial or pleural fluid. No concerning bony finding. IMPRESSION: No evidence of pulmonary thromboembolism. Mild interstitial pulmonary edema likely present. Temporary IJ dialysis access removal11/29/2020 see operative note for more information Echocardiogram-negative for signs of vegetation or pericardial effusion see report for further information Brief History of Present Illness: Mr. Law is a 25 yo M with DM, HTN, and hypothyroidism who presents with pain in his neck near his port site worse with talking, eating, movement beginning on Monday and fever beginning on . The port was placed several months ago for temporary dialysis. He was told by his stick puller to have the port removed, but he has been unable to attend an appointment to do so. Port site appears clean, non edematous and erythematous. WBC 13.7, Na 128, Cl 92, Glu 321, Mg 1.5, D bili 0.4, AST 73, procal 1.76. CT Chest shows pulmonary edema vs viral infection. Patient denies cough, wheezing, SOB. Aside from fever, he reports extreme fatigue over the past few days. Fluid intake and appetite at baseline. Hospital Course: Patient was admitted for suspected port infection on 11/28/2020. Blood cultures from 11/28/2020 were positive for MSSA, patient was started on vancomycin and cefepime on day of admission, the following day on 11/29/2020 patient's dialysis access to the right IJ was removed by general surgery, repeat blood cultures from 11/29 again positive for MSSA as well as catheter tip culture. Patient cultures and sensitivity resulted and patient was narrowed down to [facility], blood cultures were repeated on 12/01 and were still positive, patient was switched to oxacillin. TTE was obtained which was negative for signs of vegetation or endocarditis, case was discussed at length with infectious disease who recommended transfer for further evaluation for persistent bacteremia after removal of dialysis access with MARGE. Case was discussed with [facility] cardiology and hospitalist team who is accepted patient for further evaluation of persistent bacteremia. Vital Signs/Physical Exam: Temp Pulse Resp BP Pulse Ox 96.9 F 81 18 135/74 94 12/04/20 00:00 12/04/20 00:00 12/04/20 00:00 12/04/20 00:00 12/04/20 00:00 General: Alert, In no apparent distress, Oriented x3, Obese HEENT: Atraumatic, Normocephalic Neck: Supple Respiratory: Clear to auscultation bilaterally, Normal air movement Cardiovascular: No edema, Normal S1 S2 Capillary refill: <2 Seconds Gastrointestinal: Normal bowel sounds, Soft and benign Musculoskeletal: No contractures, No erythema, No tenderness Integumentary: No significant lesion, No tenderness/swelling, No erythema Neurological: Normal speech, Normal strength at 5/5 x4 extr, Normal tone Laboratory Data at Discharge: WBC 14.30 K/uL (4.3-10.9) H 12/03/20 06:16 Hgb 13.1 g/dL (13.6-17.9) L 12/03/20 06:16 Hct 41.4 % (39.6-49.0) 12/03/20 06:16 Plt Count 282 K/uL (152-406) D 12/03/20 06:16 PT 14.0 SECONDS (9.5-12.5) H 11/28/20 18:30 INR 1.21 11/28/20 18:30 Sodium 141 mmol/L (136-145) 12/03/20 06:16 Potassium 3.4 mmol/L (3.5-5.1) L 12/03/20 06:16 BUN 8 mg/dL (7-18) 12/03/20 06:16 Creatinine 0.74 mg/dL (0.55-1.3) 12/03/20 06:16 Glucose 162 mg/dL (74-106) H 12/03/20 06:16 Phosphorus 2.5 mg/dL (2.5-4.9) 12/02/20 05:25 Magnesium 2.4 mg/dL (1.8-2.4) 12/01/20 05:20 Total Bilirubin 0.4 mg/dL (0.2-1.0) 12/03/20 06:16 AST 106 U/L (15-37) H 12/03/20 06:16 ALT 87 U/L (12-78) H 12/03/20 06:16 Alkaline Phosphatase 145 U/L (45-117) H 12/03/20 06:16 Triglycerides 363 mg/dL (<150) H 11/29/20 04:30 Cholesterol 143 mg/dL (<200) 11/29/20 04:30 HDL Cholesterol 11 mg/dL (40-60) L 11/29/20 04:30 Cholesterol/HDL Ratio 13.00 11/29/20 04:30 Home Medications: Atorvastatin Calcium 1 tab PO BEDTIME 11/29/20 Carvedilol [Coreg] 1 tab PO BID 11/29/20 Insulin Glargine,Hum.rec.anlog [Lantus] [facility] 11/29/20 Insulin Glargine,Hum.rec.anlog [Lantus] 17 unit SQ [facility] 11/29/20 Nifedipine [Nifedipine ER] 1 tab PO DAILY 11/29/20 Physician Discharge Instructions: Please continue with care at [facility] Diet: ADA Activity: Ad tulio Followup: NONE,NONE [Primary Care Provider] - Time spent managing pt's care (in minutes): 55
[2020-12-04 05:29] LABS: Absolute Lymphocytes (CBC) 5.4 K/uL (0.7-4.9); Hematocrit 39.6 % (39.6-49.0); Lymphocytes % 33.4 % (15.3-44.8); MPV 9.5 fL (7.6-11.3); RBC Red Blood Cell Count 5.05 M/uL (4.33-5.43)
[2020-12-04 05:41] LABS: BUN Blood Urea Nitrogen 9 mg/dL (7-18); Bicarbonate 29 mmol/L (21-32); Glucose Level 172 mg/dL (74-106); Potassium 3.7 mmol/L (3.5-5.1); Sodium Level 142 mmol/L (136-145)
== END 2020-12-04 05:15 | disposition short-term general hospital (02) | DRG 315 ==
LOC: ER 17:49 → ERHOLD 21:52 → 2ND 11-29 16:50
PROVIDERS: ADMIT Internal Medicine; ATTEND Internal Medicine
PROC: 05PYX3Z Removal of Infusion Device from Upper Vein, External Approach (ICD-10-PCS; principal; 2020-11-29)
DX: T80.211A Bloodstream infection due to central venous catheter, initial encounter (principal); Z68.42 Body mass index [BMI] 45.0-49.9, adult; I38 Endocarditis, valve unspecified; E46 Unspecified protein-calorie malnutrition; E03.9 Hypothyroidism, unspecified; B95.61 Methicillin susceptible Staphylococcus aureus infection as the cause of diseases classified elsewhere; Y82.9 Unspecified medical devices associated with adverse incidents; E11.9 Type 2 diabetes mellitus without complications; E66.01 Morbid (severe) obesity due to excess calories; D64.9 Anemia, unspecified; I10 Essential (primary) hypertension; Z20.822 Contact with and (suspected) exposure to COVID-19
CPT/HCPCS: 36415; 71045; 71275; 80048; 80053; 80061; 80076; 80202; 81003; 81015; 82947; 83036; 83605; 83735; 83880; 84100; 84132; 84145; 84439; 84443; 84484; 85025; 85610; 87040; 87070; 87077; 87086; 87088; 87186; 87205; 93005; 93306; 94760; 96365; 96366; 96367; 99285; J0690; J1815; J2700; J3370; J3475; J3480; J7030; J7040; J7050; Q9967; U0003

== ENCOUNTER 2020-12-06 23:02 | Inpatient (IN) | payer SELFPAY ==
[2020-12-06] MEDS ORDERED: D50W 25 GM/50 ML SYRINGE IV PRN (23:56)
[2020-12-06] MEDS ORDERED: ACETAMINOPHEN 500 MG TAB PO PRN (23:56)
[2020-12-06] MEDS ORDERED: HYDROCODONE/APAP 5/325 MG TAB PO PRN (23:56)
[2020-12-06] MEDS ORDERED: ONDANSETRON 4 MG/2 ML VIAL IV PRN (23:56)
[2020-12-06] MEDS ORDERED: GLUCAGON 1 MG/VIAL IM PRN (23:56)
--- NOTE | 2020-12-07 00:03 | P.HP ---
Certification for Inpatient Patient admitted to: Inpatient With expected LOS: >2 Midnights Patient will require the following post-hospital care: None Practitioner: I am a practitioner with admitting privileges, knowledge of patient current condition, hospital course, and medical plan of care. Services: Services provided to patient in accordance with Admission requirements found in Title 42 Section 412.3 of the Code of Federal Regulations Patient History Date of Service: 12/07/20 Reason for admission: Central venous catheter associated bacteremia History of Present Illness: 25-year-old male with history of insulin-dependent diabetes, past history of renal failure and recent bout with bacteremia related to central line transferred back from [facility] after receiving MARGE to rule out endocarditis. Patient's MARGE was negative, most recent blood cultures on 12/03/2020 were negative, patient will need long-term IV antibiotics and was therefore transferred back here for dispo planning and set up of IV antibiotics. Allergies No Known Allergies Allergy (Verified 10/01/19 15:26) Home Medications: Atorvastatin Calcium 1 tab PO BEDTIME 11/29/20 Carvedilol [Coreg] 1 tab PO BID 11/29/20 Insulin Glargine,Hum.rec.anlog [Lantus] 15 units SQ [facility] 11/29/20 Insulin Glargine,Hum.rec.anlog [Lantus] 17 unit SQ [facility] 11/29/20 Nifedipine [Nifedipine ER] 1 tab PO DAILY 11/29/20 - Past Medical/Surgical History Diabetic: Yes -: hypothyroid -: DM II -: obesity -: htn -: high cholesterol -: port placement Psychosocial/ Personal History: Lives at home with family - Family History Family History: Reviewed- Non-Contributory - Social History Smoking Status: Never smoker Alcohol use: No CD- Drugs: No Caffeine use: Yes Place of Residence: Home Review of Systems Unremarkable Physical Examination - Physical Exam General: Alert, In no apparent distress, Obese HEENT: Atraumatic, PERRLA, Mucous membr. moist/pink, EOMI, Sclerae nonicteric Neck: Supple, 2+ carotid pulse no bruit, No LAD, Without JVD or thyroid abnormality Respiratory: Clear to auscultation bilaterally, Normal air movement Cardiovascular: Regular rate/rhythm, Normal S1 S2 Gastrointestinal: Normal bowel sounds, No tenderness Musculoskeletal: No tenderness Integumentary: No rashes Neurological: Normal speech, Normal strength at 5/5 x4 extr, Normal tone, Normal affect Assessment and Plan - Plan Assessment: Central venous catheter associated bacteremia Insulin-dependent diabetes mellitus Plan: Central venous catheter associated bacteremia: Central venous catheter removed on 11/29/2020, last positive blood cultures 12/01/2020. TTE and MARGE negative for endocarditis, blood cultures obtained on 12/03/2020 -, infectious disease recommends 2 weeks IV antibiotics, currently on cefazolin 2 g IV every 8. Patient will need to have outpatient antibiotic therapy arranged. Infectious disease consulted, daily labs. Insulin-dependent diabetes mellitus: Continue sliding scale insulin, twice daily Lantus 15 units twice daily. DVT PPX: Lovenox Code status: Full Discharge Plan: Home Plan to discharge in: 48 Hours - Advance Directives Does patient have a Living Will: No Does patient have a Durable POA for Healthcare: No - Code Status/Comfort Care Code Status Assessed: Yes (Full code) Critical Care: No Time Spent Managing Pts Care (In Minutes): 55
[2020-12-07 00:12] VITALS: BMI 52.2
[2020-12-07] MEDS ORDERED: CEFAZOLIN 2 GM in NA CHLORIDE 0.9% 100 ML IVPB SCH ×2 (01:00→05:00)
[2020-12-07 05:40] LABS: Absolute Lymphocytes (CBC) 4.6 K/uL (0.7-4.9); Basophils % 0.8 % (0-1.3); Hematocrit 38.1 % (39.6-49.0); Lymphocytes % 29.6 % (15.3-44.8); MPV 8.3 fL (7.6-11.3); RBC Red Blood Cell Count 4.91 M/uL (4.33-5.43)
[2020-12-07 06:12] LABS: ALT/SGPT 50 U/L (12-78); AST/SGOT 40 U/L (15-37); Albumin 3.1 g/dL (3.4-5.0); Alkaline Phosphatase 123 U/L (45-117); BUN Blood Urea Nitrogen 9 mg/dL (7-18); Bicarbonate 28 mmol/L (21-32); Bilirubin Total 0.3 mg/dL (0.2-1.0); Glucose Level 154 mg/dL (74-106); Potassium 3.9 mmol/L (3.5-5.1); Protein, Total 7.1 g/dL (6.4-8.2); Sodium Level 140 mmol/L (136-145)
[2020-12-07 07:30] LABS: Urine Appearance CLEAR (Clear); Urine Bilirubin NEGATIVE (Negative); Urine Blood NEGATIVE (Negative); Urine Color YELLOW (Yellow); Urine Glucose NEGATIVE (Negative); Urine Protein NEGATIVE (Negative); Urine Urobilinogen 0.2 mg/dL (0.2-1.0); Urine pH 5.5 (5.0-7.0)
[2020-12-07] MEDS: INSULIN -REGULAR HUMAN 50 UNIT/0.5 ML ML SQ SCH ×4 (07:30→20:37)
[2020-12-07 07:49] LABS: Urine Microscopic Reflex NO UMIC
[2020-12-07] MEDS ORDERED: POTASSIUM CL SA 10 MEQ TAB PO ONE (09:00)
[2020-12-07] MEDS: INSULIN GLARGINE 100 UNITS/ML SQ SCH ×2 (09:07→20:37)
[2020-12-07] MEDS: ENOXAPARIN 40 MG/0.4 ML SQ SCH (09:08)
--- NOTE | 2020-12-07 12:23 | P.CNS ---
Date of Consult: 12/07/20 Chief Complaint: Central venous catheter associated bacteremia History of Present Illness: The patient is a 25-year-old male with a past medical history of diabetes uncontrolled, anemia, hypothyroidism, morbid obesity, and recent right Port-A-Cath removal who transferred back to this facility from [facility] after undergoing a transesophageal echocardiogram to rule out endocarditis due to persistent bacteremia. Patient's MARGE was negative, most recent blood cultures taken on 12/03 showed no growth. Patient had a left arm midline placed on 12/06. Will need antibiotics for 2 weeks from 12/03. Patient currently denies nausea, vomiting, diarrhea, shortness of breath, chest pain. Patient reports intermittent cough that is been on going for the past week, states that is nonproductive. Allergies No Known Allergies Allergy (Verified 12/07/20 00:07) Home Medications: Atorvastatin Calcium 1 tab PO BEDTIME 11/29/20 Carvedilol [Coreg] 1 tab PO BID 11/29/20 Insulin Glargine,Hum.rec.anlog [Lantus] 15 units SQ [facility] 11/29/20 Insulin Glargine,Hum.rec.anlog [Lantus] 17 unit SQ [facility] 11/29/20 Nifedipine [Nifedipine ER] 1 tab PO DAILY 11/29/20 Levothyroxine [Synthroid] 100 mcg PO DAILY 12/07/20 - Past Medical/Surgical History Diabetic: Yes -: hypothyroid -: DM II -: obesity -: htn -: high cholesterol -: port placement Psychosocial/ Personal History: Lives at home with family - Social History Alcohol use: No CD- Drugs: No Caffeine use: Yes Place of Residence: Home Review of Systems 10-point ROS is otherwise unremarkable Physical Examination Temp Pulse Resp BP Pulse Ox 97.8 F 99 H 18 124/87 93 12/07/20 12:00 12/07/20 12:00 12/07/20 12:00 12/07/20 12:00 12/07/20 12:00 General: Alert, In no apparent distress, Oriented x3, Obese HEENT: Atraumatic, Normocephalic Neck: Supple, 2+ carotid pulse no bruit Respiratory: Clear to auscultation bilaterally, Normal air movement Cardiovascular: No edema, Normal pulses, Regular rate/rhythm Capillary refill: <2 Seconds Gastrointestinal: Soft and benign, Non-distended Musculoskeletal: No clubbing, No swelling, No contractures, No erythema Integumentary: No rashes, No breakdown, No significant lesion Laboratory Data (last 24 hrs) 12/07/20 05:11: Sodium 140, Potassium 3.9, BUN 9, Creatinine 0.74, Glucose 154 H, Total Bilirubin 0.3, AST 40 H, ALT 50, Alkaline Phosphatase 123 H 12/07/20 05:11: WBC 15.70 H, Hgb 12.4 L, Hct 38.1 L, Plt Count 407 H D Conclusions/Impression: Assessment/plan Persistent bacteremia due to infected port Patient initially presented septic on 11/28 with blood cultures growing methicillin-susceptible Staphylococcus aureus, source of infection was right Port-A-Cath. Port-A-Cath was removed on 11/29. Patient had persistent bacteremia on 12/01. Patient had transesophageal echocardiogram to rule out endocarditis, was negative. Most recent blood cultures performed on 12/03 showed no growth. Patient will need IV antibiotics for 2 weeks following negative blood culture report. Patient is uninsured, working with pharmacy to correlate an antibiotic which can be dosed once a day or twice a day as the pa tient will need to come to the hospital to receive his antibiotics. He is switch the patient to daptomycin, with dose adjusted due to body weight. Patient will need antibiotics until 12/06. José Luis CK ordered. Diabetes Uncontrolled, continue sliding scale insulin Protein caloric malnutrition Recommend supplemental Ensure protein drinks Hypothyroidism, morbid obesity, anemia Medical management per primary team Continue monitor CBC and BMP Continue to monitor for signs infection Plan care discussed with Dr. lopez Thank you for consultation
[2020-12-07] MEDS ORDERED: PERMETHRIN 5% 60 GM TUBE TOP SCH ×2 (15:15→15:46)
[2020-12-07] MEDS: DAPTOmycin 800 MG in NA CHLORIDE 0.9% 100 ML IVPB SCH (15:27)
--- NOTE | 2020-12-07 15:59 | P.PN ---
Date of Service: 12/07/20 Subjective: Patient reports feeling well, slightly tired today, no new complaints, denies diarrhea, denies abdominal pain, denies fever/chills ROS: 10 point review of systems otherwise negative Physical exam General: Alert and oriented x3, NAD HEENT: Normal conjunctiva, sclera anicteric Cardiovascular: Regular rate and rhythm, no murmur Pulmonary: Clear to auscultation bilaterally, nonlabored on room air Abdomen: Soft, nontender, nondistended Skin: No rash/lesions Problem list Central venous catheter associated bacteremia Insulin-dependent diabetes mellitus type 2 Central venous catheter removed on 11/29/2020, patient was noncompliant and left in for over a year Had multiple blood cultures that were positive. Transferred to [facility] for MARGE MARGE negative for endocarditis, hospitalist from [facility] states blood cultures obtained on arrival were negative. ID was consulted at their hospital and they were treating patient with Ancef 2 g IV every 8 Patient transferred back on 12/06 instructional media services technician consulted to assist with outpatient treatment Patient is uninsured will need to come in and out of the ER ID consulted, question for which antibiotic will require less trips to the ER midline placed in coggon VTE: lovenox Code: full Dispo: anticipate dc home in ~1 day Time Spent Managing Pts Care (In Minutes): 35
[2020-12-08 06:25] LABS: Absolute Lymphocytes (CBC) 4.3 K/uL (0.7-4.9); Hematocrit 40.3 % (39.6-49.0); Lymphocytes % 28.6 % (15.3-44.8); MPV 8.3 fL (7.6-11.3); RBC Red Blood Cell Count 5.18 M/uL (4.33-5.43)
[2020-12-08 06:44] LABS: ALT/SGPT 51 U/L (12-78); AST/SGOT 47 U/L (15-37); Albumin 3.2 g/dL (3.4-5.0); Alkaline Phosphatase 124 U/L (45-117); BUN Blood Urea Nitrogen 9 mg/dL (7-18); Bicarbonate 28 mmol/L (21-32); Bilirubin Total 0.4 mg/dL (0.2-1.0); Glucose Level 125 mg/dL (74-106); Potassium 4.2 mmol/L (3.5-5.1); Protein, Total 7.7 g/dL (6.4-8.2); Sodium Level 139 mmol/L (136-145)
[2020-12-08] MEDS: INSULIN -REGULAR HUMAN 50 UNIT/0.5 ML ML SQ SCH ×3 (07:30→16:30)
[2020-12-08] MEDS ORDERED: LICE TREATMENT 1 APPL/120 ML BTL TOP ONE (10:00)
[2020-12-08] MEDS: INSULIN GLARGINE 100 UNITS/ML SQ SCH (10:01)
[2020-12-08] MEDS: ENOXAPARIN 40 MG/0.4 ML SQ SCH (10:01)
--- NOTE | 2020-12-08 11:42 | P.PN ---
Subjective Date of Service: 12/08/20 Chief Complaint: Central venous catheter associated bacteremia Patient seen examined at bedside, switched to daptomycin yesterday. Patient found to have head lice, was given correct shampoo. Review of Systems 10-point ROS is otherwise unremarkable Physical Examination - Vital Signs Temperature: 97.9 F Blood Pressure: 141/82 Pulse: 93 Respirations: 26 Pulse Ox (%): 96 - Studies Laboratory Data (last 24 hrs) 12/08/20 06:04: Sodium 139, Potassium 4.2, BUN 9, Creatinine 0.66, Glucose 125 H, Total Bilirubin 0.4, AST 47 H, ALT 51, Alkaline Phosphatase 124 H 12/08/20 06:04: WBC 14.90 H, Hgb 13.0 L, Hct 40.3, Plt Count 411 H Assessment And Plan - Plan Physical Exam: General: Alert, In no apparent distress, Oriented x3, Obese HEENT: Atraumatic, Normocephalic Neck: Supple, 2+ carotid pulse no bruit Respiratory: Clear to auscultation bilaterally, Normal air movement Cardiovascular: No edema, Normal pulses, Regular rate/rhythm Capillary refill: <2 Seconds Gastrointestinal: Soft and benign, Non-distended Musculoskeletal: No clubbing, No swelling, No contractures, No erythema Integumentary: No rashes, No breakdown, No significant lesion Conclusions/Impression: Assessment/plan Persistent bacteremia due to infected port Patient initially presented septic on 11/28 with blood cultures growing methicillin-susceptible Staphylococcus aureus, source of infection was right Port-A-Cath. Port-A-Cath was removed on 11/29. Patient had persistent bacteremia on 12/01. Patient had transesophageal echocardiogram to rule out endocarditis, was negative. Most recent blood cultures performed on 12/03 showed no growth. Patient will need IV antibiotics for 2 weeks following negative blood culture report. Patient is uninsured, discuss with pharmacy options for patient as he will need to come to the hospital to receive his antibiotics, need something dosed once a day. Switched the patient to daptomycin, with dose adjusted due to body weight. Patient will need antibiotics until 12/06. Baseline CK within normal limits, patint will need another CK ordered on 12/16 along with CBC nad BMP. Diabetes Uncontrolled, continue sliding scale insulin Protein caloric malnutrition Recommend supplemental Ensure protein drinks Hypothyroidism, morbid obesity, anemia Medical management per primary team Continue monitor CBC and BMP Continue to monitor for signs infection Plan care discussed with Dr. lopez Thank you for consultation
[2020-12-08] MEDS: DAPTOmycin 800 MG in NA CHLORIDE 0.9% 100 ML IVPB SCH (14:59)
[2020-12-08 17:21] VITALS: BP 135/89; TEMP 97.6
--- NOTE | 2020-12-08 18:19 | P.DS ---
Admission Date: 12/06/20 Discharge Date: 12/08/20 Disposition: ROUTINE DISCHARGE Discharge Condition: FAIR Reason for Admission: Central venous catheter associated bacteremia - Problems (1) Staphylococcus aureus bacteremia Status: Acute (2) Diabetes mellitus Onset Date: 03/19/18 Status: Chronic Qualifiers: Diabetes mellitus type: type 2 Diabetes mellitus correction insulin use: without correction use Diabetes mellitus complication status: with ketoacidosis Diabetes mellitus complication detail: without coma Qualified Code(s): E11.10 - Type 2 diabetes mellitus with ketoacidosis without coma (3) Morbid obesity Onset Date: 03/19/18 Status: Chronic (4) Sepsis Status: Acute Brief History of Present Illness: Mr. Law is a 25 yo M with DM, HTN, and hypothyroidism who presented with pain in his neck near his dialysis catheter site. The catheter was placed several months ago for temporary dialysis. He was told by his bursar to have the port removed, but was not compliant and the catheter was still in place for several months. Patient had leukocytosis and fever and therefore met criteria for sepsis. He was admitted for concern for catheter-related bacteremia. Blood cultures from 11/28/2020 were positive for MSSA, patient was started on vancomycin and cefepime on day of admission, the following day on 11/29/2020 patient's dialysis access to the right IJ was removed by general surgery, repeat blood cultures from 11/29 again positive for MSSA as well as catheter tip culture. Patient cultures and sensitivity resulted and antibiotics was narrowed down to Ancef, blood cultures were repeated on 12/01 and were still positive, patient was switched to oxacillin. TTE was obtained which was negative for signs of vegetation or endocarditis. Patient seen in consultation by infectious disease recommended transfer to a tertiary center for MARGE . Patient accepted for transfer to [facility], had MARGE done with did not show any endocarditis. Hospital Course: Patient was transferred back here to continue the hospitalization. At this time, Infectious disease had him on daptomycin. Patient was stable with stable vitals. Repeat blood culture on 12/03/20 have yielded no growth. Infectious disease recommended 2 weeks of IV antibiotic from the date of negative blood culture. He is discharged with 9 more days of IV daptomycin to be given as an outpatient in this hospital. Vital Signs/Physical Exam: Temp Pulse Resp BP Pulse Ox 97.6 F 93 H 24 H 135/89 94 10/05/21 16:00 12/08/20 16:00 12/08/20 16:00 12/08/20 16:00 12/08/20 16:00 General: Alert, In no apparent distress, Oriented x3, Obese HEENT: Mucous membr. moist/pink Neck: JVD not distended Respiratory: Clear to auscultation bilaterally, Normal air movement Cardiovascular: No edema, Regular rate/rhythm, Normal S1 S2 Gastrointestinal: Soft and benign, Non-distended, No tenderness Musculoskeletal: No swelling Integumentary: No rashes Neurological: Normal strength at 5/5 x4 extr Laboratory Data at Discharge: WBC 14.90 K/uL (4.3-10.9) H 12/08/20 06:04 Hgb 13.0 g/dL (13.6-17.9) L 12/08/20 06:04 Hct 40.3 % (39.6-49.0) 12/08/20 06:04 Plt Count 411 K/uL (152-406) H 12/08/20 06:04 Sodium 139 mmol/L (136-145) 12/08/20 06:04 Potassium 4.2 mmol/L (3.5-5.1) 12/08/20 06:04 BUN 9 mg/dL (7-18) 12/08/20 06:04 Creatinine 0.66 mg/dL (0.55-1.3) 12/08/20 06:04 Glucose 125 mg/dL (74-106) H 12/08/20 06:04 Total Bilirubin 0.4 mg/dL (0.2-1.0) 12/08/20 06:04 AST 47 U/L (15-37) H 12/08/20 06:04 ALT 51 U/L (12-78) 12/08/20 06:04 Alkaline Phosphatase 124 U/L (45-117) H 12/08/20 06:04 Home Medications: Atorvastatin Calcium 1 tab PO BEDTIME 11/29/20 Carvedilol [Coreg] 1 tab PO BID 11/29/20 Nifedipine [Nifedipine ER] 1 tab PO DAILY 11/29/20 Levothyroxine [Synthroid*] 100 mcg PO DAILY 12/07/20 DAPTOmycin [Daptomycin] 800 mg IV DAILY 9 Days vial 12/08/20 Insulin Glargine Human [Lantus*] 15 units SQ BID #10 ml 12/08/20 New Medications: DAPTOmycin [Daptomycin] 800 mg IV DAILY 9 Days vial Insulin Glargine Human [Lantus*] 15 units SQ BID #10 ml Diet: ADA Activity: Ad tulio Followup: Rajeev Lang MD [ACTIVE - CAN ADMIT] - 1 Week Time spent managing pt's care (in minutes): 40
== END 2020-12-08 19:11 | disposition home or self-care (01) | DRG 872 ==
LOC: 2ND 23:02
PROVIDERS: ADMIT Hospitalist; ATTEND Hospitalist
DX: R78.81 Bacteremia (principal); Z68.43 Body mass index [BMI] 50.0-59.9, adult; E46 Unspecified protein-calorie malnutrition; B95.61 Methicillin susceptible Staphylococcus aureus infection as the cause of diseases classified elsewhere; E66.01 Morbid (severe) obesity due to excess calories; E03.9 Hypothyroidism, unspecified; B85.0 Pediculosis due to Pediculus humanus capitis; E11.9 Type 2 diabetes mellitus without complications
CPT/HCPCS: 36415; 80053; 81003; 82550; 82947; 85025; J0690; J0878; J1650; J1815

== ENCOUNTER 2022-07-28 18:17 | Inpatient (IN) | payer OTHER, SELFPAY ==
--- NOTE | 2022-07-28 19:12 | RAD REPORT ---
EXAM DESCRIPTION: US - Abdomen Exam Limited - 07/28/2022 7:03 pm CLINICAL HISTORY: Abdominal pain. COMPARISON: None. FINDINGS: Evaluation is somewhat limited secondary to body habitus. The gallbladder wall is not thickened. A gallstone is not seen. The biliary tree is normal caliber. IMPRESSION: Grossly normal gallbladder ultrasound
[2022-07-28] MEDS ORDERED: ONDANSETRON 4 MG/2 ML VIAL ONE ×2 (19:24→22:04)
[2022-07-28] MEDS ORDERED: SUCRALFATE 1 GM TABLET ONE (19:24)
[2022-07-28] MEDS ORDERED: NA CHLORIDE 0.9% 500 ML ONE ×2 (19:25→19:35)
[2022-07-28] MEDS ORDERED: FAMOTIDINE 20 MG/2 ML VIAL IV ONE (19:25)
[2022-07-28 19:41] LABS: Absolute Lymphocytes (CBC) 2.4 K/uL (0.7-4.9); Hematocrit 45.7 % (39.6-49.0); Lymphocytes % 11.2 % (15.3-44.8); MCV 76.7 fL (80-100); RBC Red Blood Cell Count 5.96 M/uL (4.33-5.43)
[2022-07-28 21:20] LABS: Protime INR 0.98
[2022-07-28 21:43] LABS: Albumin 3.2 g/dL (3.4-5.0); Bilirubin Total 1.1 mg/dL (0.2-1.0); Protein, Total 8.2 g/dL (6.4-8.2)
[2022-07-28 21:45] LABS: Potassium 4.8 mEq/L (3.5-5.1)
[2022-07-28] MEDS ORDERED: CEFTRIAXONE 1000 MG/VIAL ONE (22:04)
[2022-07-28] MEDS ORDERED: NA CHLORIDE 0.9% 1,000 ML ONE (22:04)
[2022-07-28] MEDS ORDERED: MORPHINE 4 MG/ML SYR ONE (22:04)
--- NOTE | 2022-07-28 22:27 | RAD REPORT ---
EXAM DESCRIPTION: Karri Single View07/28/2022 8:39 pm CLINICAL HISTORY: Chest pain COMPARISON: 2020 FINDINGS: The lungs appear clear of acute infiltrate. The heart is normal size IMPRESSION: No acute abnormalities displayed
[2022-07-28] MEDS ORDERED: METOCLOPRAMIDE 10 MG/2mL INJ ONE (22:35)
--- NOTE | 2022-07-28 23:36 | EDPHYS ---
Physician Documentation [facility] Name: Vijay Law Age: 27 yrs Sex: Male : 1995 Arrival Date: 07/28/2022 Time: 18:17 Bed 20 Private MD: ED Physician Bryson Steiner HPI: 07/28 18:59 This 27 yrs old Male presents to ER via Ambulatory with complaints of bs3 Epigastric Pain. 18:59 27-year-old male history of hypertension hypothyroidism history of MIRIAM status post bs3 dialysis now not on dialysis, history of diabetes noncompliant with medications due to cost medical emergency room for approximately 2 to 3 weeks however restarted today, presents with epigastric pain that started this morning is sharp and nonradiating nothing makes it better but sitting up makes it worse no lower abdominal pain it does not radiate to his back it does not feel like his pancreatitis denies chest pain or shortness of breath no diarrhea he did vomit once. Historical: - Allergies: 18:35 unknown medication during surgery; nj1 - PMHx: 18:35 Diabetes mellitus; Hypertension; Hypothyroidism; MIRIAM; nj1 - PSHx: 18:35 dialysis cath placements; nj1 - Immunization history:: Client reports having NOT received the Covid vaccine. - Social history:: Smoking status: Patient denies any tobacco usage or history of. ROS: 18:59 Constitutional: Negative for fever, chills bs3 18:59 All other systems are negative. Exam: 18:59 Constitutional: This is a well developed, well nourished patient who is awake, alert, bs3 and in no acute distress. Patient is morbidly obese Head/Face: Normocephalic, atraumatic. Eyes: Pupils equal round and reactive to light, extra-ocular motions intact. Lids and lashes normal. ENT: mmm, no posterior phyarngeal erythema Neck: Trachea midline, no thyromegaly, no neck stiffness Chest/axilla: Normal chest wall appearance and motion. Nontender with no deformity. No lesions are appreciated. Cardiovascular: Regular rate and rhythm with a normal S1 and S2. symmetric pulses in upper extremities Respiratory: Lungs have equal breath sounds bilaterally, clear to auscultation, no respiratory distress Abdomen/GI: Soft, tender in epigastric region no significant right upper quadrant tenderness no lower abdominal tenderness to palpation no peritoneal signs MS/ Extremity: Pulses equal, no cyanosis. Neurovascular intact. Full, normal range of motion. Neuro: Awake and alert, GCS 15, oriented to person, place, time, and situation. Cranial nerves II-XII grossly intact. Motor strength 5/5 in all extremities. Sensory grossly intact. Psych: Awake, alert, with orientation to person, place and time. Behavior, mood, and affect are within normal limits. Vital Signs: 18:32 BP 156 / 96; Pulse 106; Resp 19; Temp 98.8(O); Pulse Ox 100% on R/A; Weight 147.42 kg; nj1 Height 5 ft. 9 in. ; Pain 10/10; 18:54 BP 139 / 90; Pulse 98; Resp 18; Pulse Ox 99% ; vg1 21:00 BP 129 / 88; Pulse 106; Resp 18; Pulse Ox 97% on R/A; vg1 23:30 BP 142 / 108; Pulse 105; Resp 20; Pulse Ox 99% on R/A; vg1 18:32 Body Mass Index 47.99 (147.42 kg, 175.26 cm) nj1 18:32 Pain Scale: Adult nj1 MDM: 18:18 Patient medically screened. bs3 18:59 Data reviewed: vital signs, nurses notes. ED course: Possible gallstones possible bs3 pancreatitis possible gastritis possible peptic ulcer, doubt obstruction given non surgical abdomen, will eval for dka, will tx symptoms and reassess. 19:15 ED course: us neg for gallstones as inter by myself. . bs3 23:33 Differential diagnosis: appendicitis, cholecystitis, Cholelithiasis, diverticulitis, sp4 gastritis, gastroesophageal reflux disease, non-specific abd pain, pancreatitis. Data reviewed: lab test result(s), radiologic studies, CT scan, ultrasound. Consideration of Admission/Observation Patient was admitted/placed on observation. Escalation of care including admission/observation considered. Management of patient was discussed with the following: Hospitalist: Admitting hospitalist Dr. John. ED course: Patient presents for acute worsening epigastric abdominal pain. Patient CT consistent with findings of acute pancreatitis. Lipase is elevated. Patient warrants admission for management of acute pancreatitis. Also for management of uncontrolled diabetes mellitus. 07/28 18:47 Order name: CBC with Diff; Complete Time: 20:22 bs3 07/28 18:47 Order name: CMP; Complete Time: 22:40 3 07/28 18:47 Order name: Lipase; Complete Time: 22:40 [facility] 07/28 20:23 Order name: Blood Culture Adult (2) [facility] 07/28 20:23 Order name: Lactate w/ 2H reflex if indic.; Complete Time: 21:34 [facility] 07/28 20:23 Order name: Protime (+inr); Complete Time: 21:34 [facility] 07/28 20:23 Order name: Ptt, Activated; Complete Time: 21:34 [facility] 07/28 23:23 Order name: Lipid Profile; Complete Time: 00:51 la1 07/29 00:48 Order name: LDL, Direct; Complete Time: 00:51 EDGA 07/29 02:31 Order name: Glucose, Ancillary Testing; Complete Time: 10:00 MS 07/29 03:05 Order name: CBC with Automated Diff; Complete Time: 10:00 EDGA 07/29 03:17 Order name: Hemoglobin A1c; Complete Time: 10:00 EDGA 07/29 03:34 Order name: Glucose, Ancillary Testing; Complete Time: 10:00 EDMS 07/29 04:34 Order name: Glucose, Ancillary Testing; Complete Time: 10:00 EDMS 07/29 05:06 Order name: Comprehensive Metabolic Panel; Complete Time: 10:00 EDMS 07/29 05:06 Order name: Phosphorus; Complete Time: 10:00 EDMS 07/29 05:06 Order name: C-Reactive Protein; Complete Time: 10:00 EDMS 07/29 05:06 Order name: Magnesium; Complete Time: 10:00 EDMS 07/29 05:06 Order name: Lipase; Complete Time: 10:00 EDMS 07/29 05:08 Order name: Procalcitonin; Complete Time: 10:00 EDMS 07/29 05:38 Order name: Glucose, Ancillary Testing; Complete Time: 10:00 EDMS 07/29 06:50 Order name: Glucose, Ancillary Testing; Complete Time: 10:00 EDMS 07/29 07:40 Order name: Glucose, Ancillary Testing; Complete Time: 10:00 EDMS 07/29 08:47 Order name: Glucose, Ancillary Testing; Complete Time: 10:00 EDMS 07/29 09:44 Order name: Glucose, Ancillary Testing; Complete Time: 10:00 EDMS 07/29 10:31 Order name: Urinalysis w/ reflexes EDMS 07/29 10:45 Order name: Glucose, Ancillary Testing EDMS 07/28 18:47 Order name: US Abdomen Limited; Complete Time: 19:15 bs3 07/28 19:15 Interpretation: Abnormal. bs3 07/28 20:23 Order name: Chest Single View XRAY; Complete Time: 23:15 bs3 07/28 20:23 Order name: CT Abd/Pelvis - IV Contrast Only bs3 07/28 20:23 Order name: EKG; Complete Time: 20:24 bs3 07/28 18:47 Order name: IV Saline Lock; Complete Time: 19:33 bs3 07/28 18:47 Order name: Labs collected and sent; Complete Time: 19:33 bs3 07/28 18:47 Order name: EKG - Nurse/Tech; Complete Time: 20:04 bs3 07/28 20:23 Order name: Accucheck; Complete Time: 20:30 bs3 07/28 20:23 Order name: Cardiac monitoring; Complete Time: 20:28 bs3 07/28 20:23 Order name: IV Saline Lock - Large Bore; Complete Time: 20:28 bs3 07/28 20:23 Order name: O2 Per Protocol; Complete Time: 20:28 3 07/28 20:23 Order name: O2 Sat Monitoring; Complete Time: 20:28 bs3 07/28 20:23 Order name: Vital Signs; Complete Time: 20:28 bs3 Administered Medications: 19:26 Drug: Ondansetron IVP 4 mg Route: IVP; Site: right antecubital; vg1 20:04 Follow up: Response: No adverse reaction; Marked relief of symptoms vg1 19:26 Drug: NS 0.9% IV 500 ml Route: IV; Rate: bolus; Site: right antecubital; vg1 20:04 Follow up: IV Status: Completed infusion; IV Intake: 500ml vg1 19:28 Drug: Famotidine IVP 20 mg Route: IVP; Site: right antecubital; vg1 20:04 Follow up: Response: No adverse reaction; No change in condition vg1 19:30 Drug: Sucralfate PO 1 grams Route: PO; vg1 23:36 Follow up: Response: No adverse reaction vg1 22:22 Drug: Ondansetron IVP 4 mg Route: IVP; Site: right antecubital; vg1 23:35 Follow up: Response: No adverse reaction; Marked relief of symptoms vg1 22:24 Drug: morphine IVP or IV 4 mg Route: IVP; Infused Over: 4 mins; Site: right antecubital;vg1 23:36 Follow up: Response: No adverse reaction; No change in condition vg1 22:26 Drug: metoCLOPramide IVP 10 mg {Note: placed in bolus NS .} Route: IVP; Site: right vg1 antecubital; 23:35 Follow up: Response: No adverse reaction; Marked relief of symptoms vg1 22:26 Drug: NS 0.9% IV 1000 ml Route: IV; Rate: 1 bolus; Site: right antecubital; vg1 23:35 Follow up: IV Status: Completed infusion; IV Intake: 1000ml vg1 23:31 Drug: Rocephin IV 1 grams Route: IV; Rate: bolus; Site: right antecubital; vg1 07/29 00:53 Drug: morphine IVP or IV 4 mg Route: IVP; Infused Over: 4 mins; Site: right antecubital;ll3 02:30 Follow up: Response: No adverse reaction; No change in condition ll3 00:53 Drug: NS 0.9% IV 1000 ml Route: IV; Rate: 1000 ml; Site: right antecubital; ll3 02:30 Follow up: Response: No adverse reaction; IV Status: Completed infusion; IV Intake: ll3 1000ml Disposition Summary: 07/28/22 23:35 Hospitalization Ordered Hospitalization Status: Inpatient Admission sp4 Provider: Abran John spLuis Condition: Stable sp4 Problem: new sp4 Symptoms: have improved sp4 Bed/Room Type: Standard sp4 Location: [facility] ER HOLD(07/29/22 00:11) Room Assignment: ERHOLD-(07/29/22 00:11) Diagnosis - Acute pancreatitis, uncontrolled diabetes mellitus, moderate dehydration. sp4 Forms: - Medication Reconciliation Form sp4 - SBAR form sp4 Signatures: Dispatcher [employer] EDAsael Anguol FNP-C FNP-[facility]1 Elizabeth Alvarado RN RN Emily Alvarado RN RN vg1 Elvis Huber RN RN ll3 Norberto Montemayor MD MD bs3 Bryson Steiner MD MD sp4 Brenna Gale RN RN nj1 Corrections: (The following items were deleted from the chart) 07/28 18:37 18:35 PMHx: Thyroid problem; [place] [id number] 18:37 18:35 PMHx: Diabetes - NIDDM; [place] [address] 18:37 18:35 PMHx: kidney failure; [place] [id number] 07/29 00:08 07/28 23:35 Telemetry/MedSurg (Inpatient) sp4 [facility] 07/29 00:08 07/28 23:35 sp4 [facility] 07/29 00:11 00:08 Intensive Care Unit [facility] cg 00:11 00:08 [facility] cg
--- NOTE | 2022-07-28 23:36 | ER ---
Nurse's Notes [facility] Name: Vijay Law Age: 27 yrs Sex: Male : 1995 Arrival Date: 07/28/2022 Time: 18:17 Bed 20 Private MD: Diagnosis: Acute pancreatitis, uncontrolled diabetes mellitus, moderate dehydration. Presentation: 07/28 18:32 Chief complaint: Patient states: Epigastric pain since 1130 this morning, has gotten nj1 better but then back to getting worse. Nauseous when attempted to eat. Vomited multiple times today after pain started. Coronavirus screen: Vaccine status: Patient reports being unvaccinated. Ebola Screen: Patient denies travel to an Ebola-affected area in the 21 days before illness onset. Initial Sepsis Screen: Does the patient meet any 2 criteria? HR > 90 bpm. No. Patient's initial sepsis screen is negative. Does the patient have a suspected source of infection? No. Patient's initial sepsis screen is negative. Risk Assessment: Do you want to hurt yourself or someone else? Patient reports no desire to harm self or others. Onset of symptoms was July 28, 2022 at 11:30. 18:32 Method Of Arrival: Ambulatory [facility] 18:32 Acuity: SUYAPA 3 nj1 Historical: - Allergies: 18:35 unknown medication during surgery; nj1 - PMHx: 18:35 Diabetes mellitus; Hypertension; Hypothyroidism; MIRIAM; nj1 - PSHx: 18:35 dialysis cath placements; nj1 - Immunization history:: Client reports having NOT received the Covid vaccine. - Social history:: Smoking status: Patient denies any tobacco usage or history of. Screenin:01 [facility] ED Fall Risk Assessment (Adult) History of falling in the last 3 months, vg1 including since admission No falls in past 3 months (0 pts). Abuse screen: Denies threats or abuse. Denies injuries from another. Nutritional screening: No deficits noted. Tuberculosis screening: No symptoms or risk factors identified. Assessment: 18:53 General: Appears in no apparent distress. uncomfortable, Behavior is cooperative. Pain: vg1 Complains of pain in epigastric area Pain currently is 10 out of 10 on a pain scale. Pain began this morning around 1130. Neuro: Level of Consciousness is awake, alert, obeys commands, Oriented to person, place, time, situation. Cardiovascular: Patient's skin is warm and dry. Respiratory: Airway is patent Respiratory effort is even, unlabored. GI: Abdomen is round obese, Abdomen is tender to palpation in epigastric area Reports epigastric pain, nausea, vomiting, Patient currently denies diarrhea, pt stated pain relief when laying down but when sitting up pain increases in epigastric area. : No signs and/or symptoms were reported regarding the genitourinary system. Musculoskeletal: Circulation, motion, and sensation intact. 20:05 Reassessment: Patient appears in no apparent distress at this time. No changes from vg1 previously documented assessment. Patient and/or family updated on plan of care and expected duration. Pain level reassessed. Patient is alert, oriented x 3, equal unlabored respirations, skin warm/dry/pink. 20:30 Reassessment: Patient appears in no apparent distress at this time. Patient and/or vg1 family updated on plan of care and expected duration. Pain level reassessed. Patient is alert, oriented x 3, equal unlabored respirations, skin warm/dry/pink. pt actively vomiting. 22:31 Reassessment: Patient appears in no apparent distress at this time. No changes from vg1 previously documented assessment. Patient and/or family updated on plan of care and expected duration. Pain level reassessed. Patient is alert, oriented x 3, equal unlabored respirations, skin warm/dry/pink. Patient states symptoms have not improved. Vital Signs: 18:32 BP 156 / 96; Pulse 106; Resp 19; Temp 98.8(O); Pulse Ox 100% on R/A; Weight 147.42 kg; nj1 Height 5 ft. 9 in. ; Pain 10/10; 18:54 BP 139 / 90; Pulse 98; Resp 18; Pulse Ox 99% ; vg1 21:00 BP 129 / 88; Pulse 106; Resp 18; Pulse Ox 97% on R/A; vg1 23:30 BP 142 / 108; Pulse 105; Resp 20; Pulse Ox 99% on R/A; vg1 18:32 Body Mass Index 47.99 (147.42 kg, 175.26 cm) nj1 18:32 Pain Scale: Adult [facility] ED Course: 18:18 Patient arrived in ED. rg4 18:18 Norberto Montemayor MD is Attending Physician. bs3 18:35 Triage completed. nj1 18:37 Arm band placed on right wrist. nj1 18:44 Emily Alvarado, RN is Primary Nurse. vg1 19:00 Patient has correct armband on for positive identification. Bed in low position. Call vg1 light in reach. Side rails up X 1. 19:00 No provider procedures requiring assistance completed. vg1 19:05 US Abdomen Limited In Process Unspecified. EDMS 19:24 Inserted saline lock: 20 gauge in right antecubital area, using aseptic technique. vg1 Blood collected. 20:24 Attending Physician role handed off by Norberto Montemayor MD sp4 20:24 Bryson Steiner MD is Attending Physician. sp4 20:41 Chest Single View XRAY In Process Unspecified. EDMS 20:53 Inserted saline lock: 20 gauge in left antecubital area, using aseptic technique. Blood vg1 collected. 20:53 First set of blood cultures drawn L AC. vg1 20:59 Radiology exam delayed due to lab results not completed at this time. (BUN/Creatinine). jg10 22:55 CT Abd/Pelvis - IV Contrast Only In Process Unspecified. EDMS 23:34 Abran John MD is Hospitalizing Provider. sp4 05 07:29 Primary Nurse role handed off by Emily Alvarado, CECY eb 11:13 Sudha Antonio, RN is Primary Nurse. db 11:14 Patient admitted, IV remains in place. db Administered Medications: 07/28 19:26 Drug: Ondansetron IVP 4 mg Route: IVP; Site: right antecubital; vg1 20:04 Follow up: Response: No adverse reaction; Marked relief of symptoms vg1 19:26 Drug: NS 0.9% IV 500 ml Route: IV; Rate: bolus; Site: right antecubital; vg1 20:04 Follow up: IV Status: Completed infusion; IV Intake: 500ml vg1 19:28 Drug: Famotidine IVP 20 mg Route: IVP; Site: right antecubital; vg1 20:04 Follow up: Response: No adverse reaction; No change in condition vg1 19:30 Drug: Sucralfate PO 1 grams Route: PO; vg1 23:36 Follow up: Response: No adverse reaction vg1 22:22 Drug: Ondansetron IVP 4 mg Route: IVP; Site: right antecubital; vg1 23:35 Follow up: Response: No adverse reaction; Marked relief of symptoms vg1 22:24 Drug: morphine IVP or IV 4 mg Route: IVP; Infused Over: 4 mins; Site: right antecubital;vg1 23:36 Follow up: Response: No adverse reaction; No change in condition vg1 22:26 Drug: metoCLOPramide IVP 10 mg {Note: placed in bolus NS .} Route: IVP; Site: right vg1 antecubital; 23:35 Follow up: Response: No adverse reaction; Marked relief of symptoms vg1 22:26 Drug: NS 0.9% IV 1000 ml Route: IV; Rate: 1 bolus; Site: right antecubital; vg1 23:35 Follow up: IV Status: Completed infusion; IV Intake: 1000ml vg1 23:31 Drug: Rocephin IV 1 grams Route: IV; Rate: bolus; Site: right antecubital; vg1 07/29 00:53 Drug: morphine IVP or IV 4 mg Route: IVP; Infused Over: 4 mins; Site: right antecubital;ll3 02:30 Follow up: Response: No adverse reaction; No change in condition ll3 00:53 Drug: NS 0.9% IV 1000 ml Route: IV; Rate: 1000 ml; Site: right antecubital; ll3 02:30 Follow up: Response: No adverse reaction; IV Status: Completed infusion; IV Intake: ll3 1000ml Medication: 11:14 VIS not applicable for this client. db Intake: 07/28 20:04 IV: 500ml; Total: 500ml. vg1 23:35 IV: 1000ml; Total: 1500ml. vg1 07/29 02:30 IV: 1000ml; Total: 2500ml. ll3 Outcome: 07/28 23:35 Decision to Hospitalize by Provider. sp4 07/29 11:13 Admitted to ICU accompanied by nurse, accompanied by tech, via stretcher, room 5, on db monitor, Report called to Philip Condition: stable Instructed on the need for admit. 11:14 Patient left the ED. db Signatures: Dispatcher [employer] Myrna Dunn 4 Abby Morfin Victoria, RN RN 1 Elvis Huber RN RN ll3 Norberto Montemayor MD MD bs3 Sudha Antonio, RN RN db Florencia Ghotra jg10 Bryson Steiner MD MD sp4 Brenna Gale RN RN nj1 Corrections: (The following items were deleted from the chart) 07/28 18:37 18:35 PMHx: Thyroid problem; nj1 [facility] 18:37 18:35 PMHx: Diabetes - NIDDM; [place] [id number] 18:37 18:35 PMHx: kidney failure; [place] [id number] 18:39 18:32 BP 156 / 96; Pulse 106bpm; Resp 99bpm; Pulse Ox 100% RA; Temp 98.8F Oral; 147.42 nj1 kg; Height 5 ft. 9 in.; BMI: 47.9; Pain 12/13, Adult; nj1 21:00 21:00 Reassessment: Patient appears in no apparent distress at this time. Patient vg1 and/or family updated on plan of care and expected duration. Pain level reassessed. Patient is alert, oriented x 3, equal unlabored respirations, skin warm/dry/pink. pt actively vomiting vg1
--- NOTE | 2022-07-29 00:22 | P.HP ---
Certification for Inpatient Patient admitted to: Inpatient With expected LOS: >2 Midnights Patient will require the following post-hospital care: None Practitioner: I am a practitioner with admitting privileges, knowledge of patient current condition, hospital course, and medical plan of care. Services: Services provided to patient in accordance with Admission requirements found in Title 42 Section 412.3 of the Code of Federal Regulations <LennyAsael Del Rio - Last Filed: 07/29/22 00:50> Patient History Date of Service: 07/29/22 Reason for admission: Pancreatitis History of Present Illness: 27-year-old male with history of insulin-dependent diabetes, previous renal failure requiring dialysisnow recovered, hypertension, hyperlipidemia/hypertriglyceridemia, pancreatitis presents the emergency department chief complaint of abdominal pain. He reports his abdominal pain began today at around 1130 described as sharp, nonradiating with moderate epigastric tenderness. He reports he has been without his medications including his insulin, atorvastatin for the last few months, he was just able to get his medications filled today but began having abdominal pain. He was evaluated here in the emergency department his labs demonstrate leukocytosis, elevated lipase, hyperglycemia, mild elevations in AST, ALT, alk phos. Phlebotomy staff report blood is very lipemic, patient has had hypertriglyceridemia previously, he is not a drinker, ultrasound was performed of the gallbladder which shows normal gallbladder, normal biliary tree. I suspect his triglycerides will be markedly elevated, lipid panel is currently pending. He received 2.5 L of IV fluid in the ED as well as IV pain medications, will admit to the ICU in anticipation of requirement of insulin drip for hypertriglyceridemia induced pancreatitis. BISAP score is 1 given presence of SIRS criteria. Patient afebrile denies infectious symptoms including fever, dysuria, cough. - Past Medical/Surgical History Diabetic: Yes -: hypothyroid -: was hospitalized 02/2017 for hyperglycemia, quit taking insulin per his MD -: DM II -: obesity -: htn -: high cholesterol -: Hypertriglyceridemia/pancreatitis -: Acute renal failure requiring dialysis-recovered -: Dialysis catheter placement Psychosocial/ Personal History: Lives at home with family - Family History Family History: Reviewed- Non-Contributory - Social History Smoking Status: Never smoker Alcohol use: No CD- Drugs: No Caffeine use: Yes Place of Residence: Home <Asael Galvez - Last Filed: 07/29/22 00:50> Date of Service: 07/29/22 <Abran John - Last Filed: 07/29/22 14:14> Allergies No Known Allergies Allergy (Verified 12/16/20 10:29) Home Medications: Atorvastatin Calcium 1 tab PO BEDTIME 11/29/20 Carvedilol [Coreg] 1 tab PO BID 11/29/20 Nifedipine [Nifedipine ER] 1 tab PO DAILY 11/29/20 Levothyroxine [Synthroid*] 88 mcg PO DAILY 12/07/20 DAPTOmycin [Daptomycin] 800 mg IV DAILY 9 Days vial 12/08/20 Insulin Glargine Human [Lantus*] 15 units SQ BID #10 ml 12/08/20 Review of Systems 10-point ROS is otherwise unremarkable Gastrointestinal: Nausea, Abdominal Pain <Asael Galvez - Last Filed: 07/29/22 00:50> Physical Examination - Physical Exam General: Alert, In no apparent distress, Oriented x3, Obese HEENT: Atraumatic, PERRLA, Mucous membr. moist/pink, EOMI, Sclerae nonicteric Neck: Supple, 2+ carotid pulse no bruit, No LAD, Without JVD or thyroid abnormality Respiratory: Clear to auscultation bilaterally, Normal air movement Cardiovascular: Regular rate/rhythm, Normal S1 S2 Gastrointestinal: Normal bowel sounds, Tenderness (Moderate epigastric tenderness) Musculoskeletal: No tenderness Integumentary: No rashes Neurological: Normal gait, Normal speech, Normal strength at 5/5 x4 extr, Normal tone, Normal affect Lymphatics: No axilla or inguinal lymphadenopathy - Studies Laboratory Data (last 24 hrs) 07/28/22 20:55: Sodium 131 L, Potassium 4.8, BUN 9, Creatinine 0.78, Glucose 360 H, Total Bilirubin 1.1 H, AST 66 H, ALT 82 H, Alkaline Phosphatase 130 H, Lipase 2410 H 07/28/22 20:53: PT 10.8, INR 0.98, APTT 34.0 07/28/22 19:24: WBC 21.10 H, Hgb 16.1, Hct 45.7, Plt Count 379 <Asael Galvez - Last Filed: 07/29/22 00:50> - Studies Laboratory Data (last 24 hrs) 07/28/22 23:52: Triglycerides 2496 H, Cholesterol 262 H, LDL Cholesterol Direct 73 L, HDL Cholesterol 29 L, Cholesterol/HDL Ratio 9.03 07/28/22 20:55: Sodium 131 L, Potassium 4.8, BUN 9, Creatinine 0.78, Glucose 360 H, Total Bilirubin 1.1 H, AST 66 H, ALT 82 H, Alkaline Phosphatase 130 H, Lipase 2410 H 07/28/22 20:53: PT 10.8, INR 0.98, APTT 34.0 07/28/22 19:24: WBC 21.10 H, Hgb 16.1, Hct 45.7, Plt Count 379 Microbiology Data (last 24 hrs): 07/28/22 23:11 Blood - Blood Anaerobic Blood Culture - Final <Abran John - Last Filed: 07/29/22 14:14> Assessment and Plan - Plan Assessment: Hypertriglyceridemia induced acute pancreatitis Leukocytosis Insulin-dependent diabetes with hyperglycemianoncompliance Obesity Hypertension Plan: Hypertriglyceridemia induced acute pancreatitis Lipid panel pending but blood is lipemic, history of hypertriglyceridemia induced pancreatitis. Patient is not a drinker, gallbladder ultrasound negative with normal biliary tree. Received 2.5 L IVF in ED. NPO, PRN pain meds, continue aggressive IV fluids, awaiting lipid panel we will start insulin drip once marked hypertriglyceridemia confirmed. Patient was without is on medications for "a few months". 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 His BISAP score is 1 given the presence of SIRS criteria. GI to be consulted. Leukocytosis I suspect this is reactive, no fevers, other infectious sources found. Continue aggressive IV fluids. CRP/procalcitonin pending for the morning. He was given Rocephin in ED after leukocytosis was reported. Insulin-dependent diabetes with hyperglycemianoncompliance Counseled on importance of adherence with home meds/insulin. Will likely need insulin drip/hourly Accu-Cheks at this time. A1c in the morning. Obesity Counseled on need for lifestyle changes. Hypertension Hold oral medications, as needed IV meds for significant hypertension. DVT PPX: Lovenox Code status: Full Discharge Plan: Home Plan to discharge in: Greater than 2 days - Advance Directives Does patient have a Living Will: No Does patient have a Durable POA for Healthcare: No - Code Status/Comfort Care Code Status Assessed: Yes (Full code) Critical Care: No Time Spent Managing Pts Care (In Minutes): 70 <Asael Galvez - Last Filed: 07/29/22 00:50> - Plan Patient seen on rounds this morning. Pain is controlled with medication, however remains high once medication wears off, accompanied with nausea and vomiting. Overall he is feeling slightly better. Lipase downtrending, triglycerides significantly high LFTs were mildly elevated on admission, improved this morning, ultrasound without any findings concerning for biliary obstruction Continue insulin drip Continue ICU level of care <Abran John - Last Filed: 07/29/22 14:14>
[2022-07-29 00:36] LABS: HDL Cholesterol 29 mg/dL (40-60)
[2022-07-29] MEDS ORDERED: MORPHINE 4 MG/ML SYR ONE (00:47)
[2022-07-29] MEDS ORDERED: NA CHLORIDE 0.9% 1,000 ML ONE (00:47)
[2022-07-29 00:48] LABS: LDL, Direct 73 mg/dL (100-129)
[2022-07-29] MEDS ORDERED: GLUCAGON 1 MG/VIAL IM PRN (01:44)
[2022-07-29] MEDS: Ringers Lactate 1,000 ML IV SCH ×5 (01:44→22:08)
[2022-07-29] MEDS ORDERED: D50W 25 GM/50 ML SYRINGE IV PRN (01:44)
[2022-07-29] MEDS ORDERED: D10W 125 ML IV PRN (01:51)
[2022-07-29] MEDS ORDERED: INSULIN -REGULAR HUMAN 50 UNIT/0.5 ML ML ONE (02:05)
[2022-07-29] MEDS ORDERED: NA CHLORIDE 0.9% 100 ML ONE (02:05)
[2022-07-29] MEDS ORDERED: HYDROMORPHONE HCL 1 MG/ML INJ ONE ×2 (02:06→07:28)
[2022-07-29] MEDS ORDERED: ONDANSETRON 4 MG/2 ML VIAL ONE ×2 (02:06→07:29)
[2022-07-29] MEDS ORDERED: Ringers Lactate 1,000 ML IV ONE ×3 (02:07→07:28)
[2022-07-29] MEDS ORDERED: D5 0.45 NS 1,000 ML IV ONE (02:07)
[2022-07-29] MEDS: HYDROMORPHONE HCL 1 MG/ML INJ IV PRN ×5 (02:11→22:10)
[2022-07-29] MEDS: ONDANSETRON 4 MG/2 ML VIAL IV PRN ×4 (02:12→17:27)
[2022-07-29] MEDS: INSULIN -REGULAR HUMAN 100 UNIT in NA CHLORIDE 0.9% 100 ML IV SCH ×3 (02:26→11:38)
[2022-07-29 03:01] LABS: Hematocrit 42.9 % (39.6-49.0); Lymphocytes % 10.5 % (15.3-44.8); MPV 9.9 fL (7.6-11.3); RBC Red Blood Cell Count 5.57 M/uL (4.33-5.43)
[2022-07-29 05:00] LABS: Albumin 2.9 g/dL (3.4-5.0); Bilirubin Total 0.6 mg/dL (0.2-1.0); C-Reactive Protein 64.7 mg/L (<3.00); Phosphorus 2.4 mg/dL (2.5-4.9); Protein, Total 7.3 g/dL (6.4-8.2)
[2022-07-29 05:06] LABS: Magnesium 1.6 mg/dL (1.6-2.4); Potassium 4.1 mEq/L (3.5-5.1)
[2022-07-29] MEDS: D5 0.45 NS 1,000 ML IV SCH ×5 (06:30→19:38)
--- NOTE | 2022-07-29 07:33 | P.PN ---
Date of Service: 07/30/22 Subjective: feeling slightly better this morning abdominal pain persists, improving (15% better) tolerated some ice chips no new / worsening problems ROS: 10 point ROS as noted above, otherwise negative Physical Exam: GEN: Alert, oriented, NAD HEENT: Normal conjunctiva, sclera anicteric CV: Regular rate and rhythm, no edema Pulm: Nonlabored respirations on room air ABD: Soft, Moderate epigastric tenderness, nondistended Integumentary: No rashes Neuro: Normal speech, normal affect vitals reviewed Problem List: Hypertriglyceridemia induced acute pancreatitis Leukocytosis IDDM2 hyperglycemianoncompliance Obesity Hypertension Hypertriglyceridemia induced acute pancreatitis Lipase initially elevated (2410) now down to 185 history of hypertriglyceridemia induced pancreatitis. Received 2.5 L IVF in ED Patient was without his home medications for "a few months". 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 His BISAP score is 1 given the presence of SIRS criteria. Leukocytosis likely reactive, no fevers (07/30) remains elevated around 2 gallbladder u/s negative; LFTs ok, lipase improving continue aggressive IVF continue insulin drip until TG < 400 PRN pain meds GI consulted PO challenge with clears IDDM2 with hyperglycemianoncompliance Counseled on importance of adherence with home meds/insulin. continue insulin drip accucheks q1h while on drip A1c 11.3 Obesity Counseled on need for lifestyle changes. Hypertension Hold oral medications, as needed IV meds for significant hypertension. VTE: Lovenox Code: Full Dispo: Home 2+ days
[2022-07-29] MEDS: ENOXAPARIN 40 MG/0.4 ML SQ SCH (09:00)
[2022-07-29] MEDS ORDERED: ENOXAPARIN 40 MG/0.4 ML SQ ONE (09:10)
[2022-07-29 10:30] LABS: Specific Gravity > 1.030 (1.005-1.030); Urine Bacteria None Seen /HPF (<20); Urine Bilirubin NEGATIVE (Negative); Urine Blood Negative (Negative); Urine Clarity Clear (Clear); Urine Color Light-Yellow (Yellow); Urine Glucose 4+ (Over) (Negative); Urine Mucus Slight /HPF (None Seen); Urine Protein TRACE (Negative); Urine Urobilinogen Normal (Normal); Urine pH 5.5 (5.0-7.0)
--- NOTE | 2022-07-29 11:37 | RAD REPORT ---
EXAM DESCRIPTION: CT - Abdomen Pelvis W Contrast - 07/29/2022 12:52 am CLINICAL HISTORY: The patient is 27 years old and is Male; epigastric pain, vomiting TECHNIQUE: Axial computed tomography images of the abdomen and pelvis with intravenous contrast. S agittal and coronal reformatted images were created and reviewed. This CT exam was performed using one or more of the following dose reduction techniques: automated exposure control, adjustment of t he mA and/or kV according to patient size, and/or use of iterative reconstruction technique. COMPARISON: No relevant prior studies available. FINDINGS: LUNG BASES: Unremarkable. No mass. No consolidation. ABDOMEN: LIVER: The liver is enlarged and diffusely fatty. GALLBLADDER AND BILE DUCTS: No calcified stones. No ductal dilation. PANCREAS: Extensive peripancreatic fluid and inflammation is present. The pancreas enhances unifo rmly. SPLEEN: Unremarkable. ADRENALS: Unremarkable. No mass. KIDNEYS AND URETERS: Unremarkable. The kidneys enhance symmetrically. No obstructing renal or ure teral calculus is seen. No hydronephrosis or hydroureter. No perinephric fluid or stranding. STOMACH AND BOWEL: The stomach is minimally fluid filled. The small bowel is decompressed. Minima l stool is noted throughout colon. There is no evidence of bowel obstruction. PELVIS: APPENDIX: The appendix is normal in caliber without surrounding inflammation. BLADDER: Unremarkable. No mass. REPRODUCTIVE: Unremarkable as visualized. ABDOMEN and PELVIS: INTRAPERITONEAL SPACE: Unremarkable. No free air. No significant fluid collection. BONES/JOINTS: No acute fracture. SOFT TISSUES: The soft tissues are normal. VASCULATURE: Unremarkable. No abdominal aortic aneurysm. LYMPH NODES: Unremarkable. No enlarged lymph nodes. IMPRESSION: Findings consistent with acute pancreatitis. Electronically signed by: Nanci Romero MD 07/28/2022 11:13 PM CDT Due to temporary technical issues with the PACS/Fluency reporting system, reports are being signed by the in house radiologist without review as a courtesy to ensure prompt reporting. The interpreting r adiologist is fully responsible for the content of the report.
[2022-07-29] MEDS: POTASS/SODIUM PHOSPHATE 1 PKT POWD.PACK PO SCH ×3 (11:46→13:45)
[2022-07-29 13:32] LABS: Magnesium 1.6 mg/dL (1.6-2.4); Potassium 3.6 mEq/L (3.5-5.1)
[2022-07-29 13:54] LABS: LDL, Direct 43 mg/dL (100-129)
[2022-07-29] MEDS ORDERED: POTASSIUM CL SA 10 MEQ TAB PO ONE (21:00)
[2022-07-29 22:45] LABS: Magnesium 1.6 mg/dL (1.6-2.4)
[2022-07-29] MEDS ORDERED: MAGNESIUM SULFATE 1 gm IVPB 1 GM/100 ML BAG IV ONE (23:37)
[2022-07-30] MEDS: HYDROMORPHONE HCL 1 MG/ML INJ IV PRN ×4 (03:39→22:24)
[2022-07-30] MEDS: ONDANSETRON 4 MG/2 ML VIAL IV PRN ×3 (03:39→22:23)
[2022-07-30] MEDS: D5 0.45 NS 1,000 ML IV SCH ×4 (04:19→19:27)
[2022-07-30] MEDS: INSULIN -REGULAR HUMAN 100 UNIT in NA CHLORIDE 0.9% 100 ML IV SCH ×2 (04:22→19:27)
[2022-07-30 05:05] LABS: Absolute Lymphocytes (CBC) 2.4 K/uL (0.7-4.9); Hematocrit 39.2 % (39.6-49.0); Lymphocytes % 11.8 % (15.3-44.8); MCV 76.3 fL (80-100); MPV 9.3 fL (7.6-11.3); RBC Red Blood Cell Count 5.14 M/uL (4.33-5.43)
[2022-07-30 05:28] LABS: Albumin 2.4 g/dL (3.4-5.0); Bilirubin Total 0.8 mg/dL (0.2-1.0); Magnesium 1.8 mg/dL (1.6-2.4); Potassium 3.3 mEq/L (3.5-5.1); Protein, Total 6.8 g/dL (6.4-8.2)
[2022-07-30 05:35] LABS: Blood Morphology Comment NOT SEEN (NOT SEEN); Platelet Estimate ADEQ
[2022-07-30] MEDS: Ringers Lactate 1,000 ML IV SCH ×4 (06:00→22:23)
[2022-07-30 06:04] LABS: Phosphorus 1.4 mg/dL (2.5-4.9)
[2022-07-30] MEDS ORDERED: MAGNESIUM SULFATE 1 gm IVPB 1 GM/100 ML BAG IV ONE (06:30)
[2022-07-30] MEDS ORDERED: POTASSIUM PHOS IN 0.9 % NACL 15 MMOL/250 ML BAG IV ONE ×2 (06:30→18:03)
[2022-07-30] MEDS: ENOXAPARIN 40 MG/0.4 ML SQ SCH (07:59)
[2022-07-30] MEDS ORDERED: POTASSIUM CL SA 10 MEQ TAB PO ONE (09:00)
[2022-07-30 11:40] LABS: LDL, Direct 60 mg/dL (100-129)
[2022-07-30 16:42] LABS: Magnesium 1.9 mg/dL (1.6-2.4); Potassium 3.3 mEq/L (3.5-5.1)
[2022-07-30 16:44] LABS: Phosphorus 1.4 mg/dL (2.5-4.9)
[2022-07-30] MEDS ORDERED: HYDRALAZINE HCL 20 MG/ML VIAL IV PRN (18:40)
[2022-07-30] MEDS ORDERED: INSULIN -REGULAR HUMAN 50 UNIT/0.5 ML ML ONE (19:31)
[2022-07-30] MEDS ORDERED: NA CHLORIDE 0.9% 100 ML ONE (19:32)
[2022-07-30] MEDS ORDERED: KCL 20 MEQ/100 mL IVPB 20 MEQ/100 ML BAG IV ONE (20:00)
[2022-07-30 23:04] LABS: LDL, Direct 87 mg/dL (100-129)
[2022-07-31] MEDS: D5 0.45 NS 1,000 ML IV SCH ×6 (00:28→22:18)
[2022-07-31] MEDS: Ringers Lactate 1,000 ML IV SCH ×5 (02:00→22:00)
[2022-07-31] MEDS: HYDROMORPHONE HCL 1 MG/ML INJ IV PRN (04:52)
[2022-07-31 05:07] LABS: Absolute Lymphocytes (CBC) 2.6 K/uL (0.7-4.9); Hematocrit 37.7 % (39.6-49.0); Lymphocytes % 14.8 % (15.3-44.8); MPV 9.1 fL (7.6-11.3); RBC Red Blood Cell Count 4.89 M/uL (4.33-5.43)
[2022-07-31 05:59] LABS: Albumin 2.2 g/dL (3.4-5.0); Bilirubin Total 0.6 mg/dL (0.2-1.0); Magnesium 1.9 mg/dL (1.6-2.4); Phosphorus 1.9 mg/dL (2.5-4.9); Potassium 3.4 mEq/L (3.5-5.1); Protein, Total 6.6 g/dL (6.4-8.2)
--- NOTE | 2022-07-31 06:56 | P.PN ---
Date of Service: 07/31/22 Subjective: intermittent abdominal pain, slightly improved (5-6/10 from 8/10) less pain ambulating to the restroom today; pain meds needed slightly less frequent feeling less nauseated today feels like eating/drinking does not exacerbate pain ROS: 10 point ROS as noted above, otherwise negative Physical Exam: GEN: Alert, oriented, NAD HEENT: Normal conjunctiva, sclera anicteric CV: Regular rate and rhythm with slight intermittent tachycardia, no edema Pulm: Nonlabored respirations on room air ABD: Soft, Moderate epigastric tenderness, nondistended Neuro: Normal speech, normal affect vitals reviewed Problem List: Hypertriglyceridemia induced acute pancreatitis Leukocytosis IDDM2 hyperglycemianoncompliance Obesity Hypertension Hypertriglyceridemia induced acute pancreatitis history of hypertriglyceridemia induced pancreatitis Lipase initially elevated (2410) now down to 185 Patient was without his home medications for "a few months". 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 His BISAP score is 1 given the presence of SIRS criteria. Leukocytosis likely reactive, no fevers (07/30) remains elevated, but improving afebrile no source of infection / suspected infection labs improving symptoms slowly improving Gallbladder u/s negative; LFTs ok, lipase improving continue IVF / insulind drip, until TG <400, or in 500s as they have been but leukocytosis / pain further improved PRN pain meds GI consulted clear liquids, advance as tolerated; eventually restricted to low fat diet IDDM2 with hyperglycemianoncompliance Counseled on importance of adherence with home meds/insulin. continue insulin drip accucheks q1h while on drip A1c 11.3 Obesity Counseled on need for lifestyle changes. Hypertension Hold oral medications, as needed IV meds for significant hypertension. VTE: Lovenox Code: Full Dispo: Home 2+ days
--- NOTE | 2022-07-31 07:32 | EKG ---
Test Date: 2022-07-28 Test Time: 20:02:37 Credit Collections Clerk: DRU MEASUREMENT RESULTS: Intervals: Rate: 95 NE: 140 QRSD: 94 QT: 360 QTc: 452 [place]: P: 38 NE: 140 QRS: 23 T: 18 INTERPRETIVE STATEMENTS: Normal sinus rhythm Normal ECG Compared to ECG 10/25/2019 12:40:50 No significant changes Electronically Signed On 07-31-22 07:25:59 CDT by Erick Cross
[2022-07-31] MEDS ORDERED: POTASSIUM PHOS IN 0.9 % NACL 15 MMOL/250 ML BAG IV ONE (08:00)
[2022-07-31] MEDS ORDERED: POTASSIUM CL SA 10 MEQ TAB PO ONE ×2 (08:00→20:00)
[2022-07-31] MEDS: ENOXAPARIN 40 MG/0.4 ML SQ SCH (08:04)
[2022-07-31] MEDS: INSULIN -REGULAR HUMAN 100 UNIT in NA CHLORIDE 0.9% 100 ML IV SCH (12:11)
[2022-07-31 12:36] LABS: LDL, Direct 99 mg/dL (100-129)
[2022-07-31 18:38] LABS: Magnesium 1.9 mg/dL (1.6-2.4); Phosphorus 2.6 mg/dL (2.5-4.9); Potassium 3.5 mEq/L (3.5-5.1)
[2022-08-01] MEDS: Ringers Lactate 1,000 ML IV SCH ×4 (03:00→17:28)
[2022-08-01] MEDS: D5 0.45 NS 1,000 ML IV SCH ×2 (03:13→08:34)
[2022-08-01] MEDS: INSULIN -REGULAR HUMAN 100 UNIT in NA CHLORIDE 0.9% 100 ML IV SCH (03:34)
[2022-08-01 06:17] LABS: Hematocrit 37.6 % (39.6-49.0); Lymphocytes % 19.5 % (15.3-44.8); MCV 76.7 fL (80-100); MPV 9.2 fL (7.6-11.3)
[2022-08-01 06:41] LABS: Albumin 2.5 g/dL (3.4-5.0); Bilirubin Total 0.7 mg/dL (0.2-1.0); Magnesium 1.9 mg/dL (1.6-2.4); Phosphorus 3.1 mg/dL (2.5-4.9); Potassium 3.3 mEq/L (3.5-5.1)
[2022-08-01 06:47] LABS: LDL, Direct 167 mg/dL (100-129)
--- NOTE | 2022-08-01 06:48 | P.PN ---
Date of Service: 08/01/22 Subjective: feeling better today, pain has improved (2-3/10 pain); not needing as much pain medication tolerating PO intake, eating between 10-25% of meals 1 episode of loose stool this morning otherwise no new / worsening problems ROS: 10 point ROS as noted above, otherwise negative Physical Exam: GEN: Alert, oriented, NAD HEENT: Normal conjunctiva, sclera anicteric CV: Regular rate and rhythm, no edema Pulm: Nonlabored respirations on room air ABD: Soft, mild epigastric tenderness, nondistended Neuro: Normal speech, normal affect vitals reviewed Problem List: Hypertriglyceridemia induced acute pancreatitis Leukocytosis IDDM2 hyperglycemianoncompliance Obesity Hypertension Hypertriglyceridemia induced acute pancreatitis history of hypertriglyceridemia induced pancreatitis Lipase initially elevated (2410) now normal Patient was without his home medications for "a few months". 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 Leukocytosis likely reactive, no fevers (07/30) remains elevated, but improving afebrile no source of infection / suspected infection labs improving symptoms slowly improving Gallbladder u/s negative; LFTs ok, lipase improving continue IVF insulin drip transitioned to SQ insulin (08/01) TG down to 415, leukocytosis trending down, pain improving (08/01) Started gemfibrozil (08/01) PRN pain meds GI consulted, saw patient, no further recommendations low fat diet roller staker consulted IDDM2 with hyperglycemianoncompliance Counseled on importance of adherence with home meds/insulin. insulin drip transitioned to SQ insulin (08/01) accucheks, sliding scale A1c 11.3 Obesity Counseled on need for lifestyle changes. Hypertension Hold oral medications, as needed IV meds for significant hypertension. VTE: Lovenox Code: Full Dispo: Home 1-2 days Possible downgrade from ICU today
[2022-08-01] MEDS ORDERED: POTASSIUM CL SA 10 MEQ TAB PO ONE (08:00)
[2022-08-01] MEDS: ENOXAPARIN 40 MG/0.4 ML SQ SCH (08:26)
[2022-08-01] MEDS ORDERED: D50W 25 GM/50 ML SYRINGE IV PRN (09:49)
[2022-08-01] MEDS ORDERED: GLUCAGON 1 MG/VIAL IM PRN (09:49)
[2022-08-01] MEDS ORDERED: INSULIN GLARGINE 100 UNIT/ML SQ ONE (10:00)
[2022-08-01] MEDS: gemfibroziL 600 MG TAB PO SCH ×2 (11:03→20:58)
[2022-08-01] MEDS: INSULIN -REGULAR HUMAN 50 UNIT/0.5 ML ML SQ SCH ×3 (11:30→20:58)
[2022-08-01 18:29] LABS: Magnesium 1.7 mg/dL (1.6-2.4); Phosphorus 3.5 mg/dL (2.5-4.9); Potassium 3.9 mEq/L (3.5-5.1)
[2022-08-01 18:58] LABS: LDL, Direct 159 mg/dL (100-129)
[2022-08-02 05:11] VITALS: BMI 47.9
[2022-08-02 05:44] LABS: Albumin 2.7 g/dL (3.4-5.0); Bilirubin Total 0.6 mg/dL (0.2-1.0); Magnesium 1.8 mg/dL (1.6-2.4); Phosphorus 4.4 mg/dL (2.5-4.9); Potassium 3.7 mEq/L (3.5-5.1); Protein, Total 7.9 g/dL (6.4-8.2)
[2022-08-02 05:45] LABS: Absolute Lymphocytes (CBC) 4.3 K/uL (0.7-4.9); Hematocrit 41.5 % (39.6-49.0); Lymphocytes % 25.3 % (15.3-44.8); MCV 77.1 fL (80-100); MPV 9.4 fL (7.6-11.3); RBC Red Blood Cell Count 5.38 M/uL (4.33-5.43)
[2022-08-02 05:56] LABS: LDL, Direct 166 mg/dL (100-129)
[2022-08-02] MEDS: Ringers Lactate 1,000 ML IV SCH ×2 (06:00→12:31)
[2022-08-02] MEDS ORDERED: MAGNESIUM SULFATE 1 gm IVPB 1 GM/100 ML BAG IV ONE (07:00)
[2022-08-02] MEDS: INSULIN -REGULAR HUMAN 50 UNIT/0.5 ML ML SQ SCH ×2 (07:30→12:40)
[2022-08-02] MEDS: POTASSIUM 25 MEQ EFFERV TAB PO ONE ×2 (08:00→08:48)
[2022-08-02] MEDS: ENOXAPARIN 40 MG/0.4 ML SQ SCH (08:48)
[2022-08-02] MEDS: gemfibroziL 600 MG TAB PO SCH (08:48)
[2022-08-02] MEDS ORDERED: POTASSIUM CL SA 10 MEQ TAB PO ONE (08:56)
[2022-08-02 09:14] VITALS: O2SAT 98
--- NOTE | 2022-08-02 11:59 | P.DS ---
Admission Date: 07/29/22 Discharge Date: 08/02/22 Disposition: ROUTINE DISCHARGE Discharge Condition: FAIR Reason for Admission: Pancreatitis Brief History of Present Illness: 27-year-old male with history of insulin-dependent diabetes, previous renal failure requiring dialysisnow recovered, hypertension, hyperlipidemia/hypertriglyceridemia, pancreatitis presents the emergency department chief complaint of abdominal pain. He described pain as sharp, nonradiating with moderate epigastric tenderness. He reports he has been without his medications including his insulin, atorvastatin for the last few months, he was just able to get his medications filled today but began having abdominal pain. He was evaluated here in the emergency department his labs demonstrate leukocytosis, elevated lipase, hyperglycemia, mild elevations in AST, ALT, alk phos. Phlebotomy staff report blood is very lipemic, patient has had hypertriglyceridemia previously, he is not a drinker, ultrasound was performed of the gallbladder which shows normal gallbladder, normal biliary tree. He received 2.5 L of IV fluid in the ED as well as IV pain medications. Patient admitted to the ICU in anticipation of requirement of insulin drip for hypertriglyceridemia induced pancreatitis. Hospital Course: Diagnosis: Hypertriglyceridemia induced acute pancreatitis Leukocytosis IDDM2 hyperglycemianoncompliance Obesity Hypertension Hypertriglyceridemia induced acute pancreatitis history of hypertriglyceridemia induced pancreatitis Lipase initially elevated (2410), improved to normal with supportive measures and insulin drip. Patient was without his home medications for "a few months". 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 Leukocytosis likely reactive, no fevers. afebrile no source of infection / suspected infection His abdominal pain resolved. Patient is currently asymptomatic. Gallbladder u/s negative; LFTs ok, lipase improved. insulin drip transitioned to SQ insulin. TG down to 415, leukocytosis trended down. Started gemfibrozil. GI consulted, saw patient, no further recommendations low fat diet us customs and border officer consulted IDDM2 with hyperglycemianoncompliance Counseled on importance of adherence with home meds/insulin. insulin drip transitioned to SQ insulin. accucheks, sliding scale A1c 11.3 Obesity Counseled on need for lifestyle changes. Hypertension Patient was normotensive most of the time during the hospital stay. Antihypertensives discontinued Vital Signs/Physical Exam: Temp Pulse Resp BP Pulse Ox 96.7 F L 90 28 H 123/82 96 08/02/22 08:00 05/30/23 11:00 08/02/22 11:00 08/02/22 11:00 08/02/22 11:00 General: Alert, In no apparent distress, Oriented x3, Other (Morbidly obese) HEENT: Mucous membr. moist/pink, Sclerae nonicteric Neck: Supple, JVD not distended Respiratory: Clear to auscultation bilaterally, Normal air movement Cardiovascular: No edema, Regular rate/rhythm, Normal S1 S2 Gastrointestinal: Normal bowel sounds, Soft and benign, Non-distended, No tenderness Musculoskeletal: No swelling Integumentary: No rashes, No cyanosis Neurological: Normal strength at 5/5 x4 extr Laboratory Data at Discharge: WBC 17.00 thou/uL (4.3-10.9) H 08/02/22 04:42 Hgb 13.2 g/dL (13.6-17.9) L D 08/02/22 04:42 Hct 41.5 % (39.6-49.0) 08/02/22 04:42 Plt Count 344 thou/uL (152-406) D 08/02/22 04:42 PT 10.8 SECONDS (9.5-12.5) 07/28/22 20:53 INR 0.98 07/28/22 20:53 APTT 34.0 SECONDS (24.3-36.9) 07/28/22 20:53 Sodium 134 mEq/L (136-145) L 08/02/22 04:42 Potassium 3.7 mEq/L (3.5-5.1) 08/02/22 04:42 BUN 6 mg/dL (7-18) L 08/02/22 04:42 Creatinine 0.69 mg/dL (0.70-1.30) L 08/02/22 04:42 Glucose 185 mg/dL (74-106) H 08/02/22 04:42 Phosphorus 4.4 mg/dL (2.5-4.9) 08/02/22 04:42 Magnesium 1.8 mg/dL (1.6-2.4) 08/02/22 04:42 Total Bilirubin 0.6 mg/dL (0.2-1.0) 08/02/22 04:42 AST 25 U/L (15-37) 08/02/22 04:42 ALT 35 U/L (16-61) 08/02/22 04:42 Alkaline Phosphatase 136 U/L (45-117) H 08/02/22 04:42 Triglycerides 416 mg/dL (<150) H 08/02/22 04:42 Cholesterol 262 mg/dL (<200) H 07/28/22 23:52 LDL Cholesterol Direct 166 mg/dL (100-129) H 08/02/22 04:42 HDL Cholesterol 29 mg/dL (40-60) L 07/28/22 23:52 Cholesterol/HDL Ratio 9.03 07/28/22 23:52 Lipase 54 U/L (13-75) 08/02/22 04:42 Home Medications: Insulin Glargine,Hum.rec.anlog [Lantus Solostar] 15 unit SQ BID #15 ml 08/02/22 Levothyroxine [Synthroid*] 88 mcg PO DAILY #30 tab 08/02/22 gemfibroziL [Lopid*] 600 mg PO BID #60 tab 08/02/22 levoFLOXacin [Levaquin] 500 mg PO DAILY #5 tab 08/02/22 New Medications: Insulin Glargine,Hum.rec.anlog [Lantus Solostar] 15 unit SQ BID #15 ml levoFLOXacin [Levaquin] 500 mg PO DAILY #5 tab gemfibroziL [Lopid*] 600 mg PO BID #60 tab Levothyroxine [Synthroid*] 88 mcg PO DAILY #30 tab Physician Discharge Instructions: PROBLEM: Acute Pancreatitis GOAL: Clear understanding of disease process INSTRUCTIONS: Follow up with your PCP in 1-2 weeks. Take medications as prescribed. If symptoms worsen, please go to the ER. If you have any questions regarding hospital stay, feel free to call . Diet: ADA Activity: Ad tulio DME DME: Date Ordered: Name of Company: [employer] Services Needed: None Name of Company: Date or Referral: IMMUNIZATION Influenza Vaccine Indicated: Influenza Vaccine Given: Date Given: Pneumonia Vaccine Indicated: No Pneumonia Vaccine Given: Date Given: Diet: ADA Activity: Ad tulio Followup: NONE,NONE [Primary Care Provider] - 1-2 Weeks Time spent managing pt's care (in minutes): 36
[2022-08-02 14:31] VITALS: BP 122/87; TEMP 97
== END 2022-08-02 13:10 | disposition home or self-care (01) | DRG 439 ==
LOC: ER 18:17 → ERHOLD 07-29 00:01 → 3RD-ICU 07-29 10:05 → ERHOLD 07-29 10:06 → 3RD-ICU 07-29 10:50
PROVIDERS: ADMIT Hospitalist; ATTEND Internal Medicine
DX: K85.90 Acute pancreatitis without necrosis or infection, unspecified (principal); R65.10 Systemic inflammatory response syndrome (SIRS) of non-infectious origin without acute organ dysfunction; Z68.43 Body mass index [BMI] 50.0-59.9, adult; E66.01 Morbid (severe) obesity due to excess calories; I10 Essential (primary) hypertension; E03.9 Hypothyroidism, unspecified; E86.0 Dehydration; E11.65 Type 2 diabetes mellitus with hyperglycemia; E78.00 Pure hypercholesterolemia, unspecified; Z79.4 Long term (current) use of insulin; Z71.89 Other specified counseling; Z79.890 Hormone replacement therapy; Z28.310 Unvaccinated for COVID-19; Z91.148 Patient's other noncompliance with medication regimen for other reason
CPT/HCPCS: 36415; 71045; 74177; 76705; 80048; 80053; 80061; 81001; 82947; 83036; 83605; 83690; 83735; 84100; 84132; 84145; 84478; 85025; 85610; 85730; 86140; 87040; 93005; 96361; 96374; 96375; 99285; J0696; J1170; J1650; J1815; J2405; J2765; J3475; J3480; J7030; J7040; J7120; J7799; Q9967

== ENCOUNTER 2023-10-27 18:25 | Inpatient (IN) | payer SELFPAY ==
[2023-10-27] MEDS ORDERED: ONDANSETRON 4 MG/2 ML VIAL ONE (19:21)
[2023-10-27] MEDS ORDERED: NA CHLORIDE 0.9% 1,000 ML ONE ×2 (19:22→22:21)
[2023-10-27] MEDS ORDERED: MORPHINE 4 MG/ML SYR ONE ×2 (19:22→22:25)
[2023-10-27 20:07] LABS: Absolute Eosinophils 0.9 K/uL (0-0.5); Nucleated Red Blood Cells % 0.2 % (0-0)
[2023-10-27 20:24] LABS: Absolute Basophils 0.2 K/uL (0-0.5); Absolute Lymphocytes (CBC) 3.9 K/uL (0.7-4.9); Absolute Monocytes 0.7 K/uL (0.1-1.3); Absolute Neutrophil 10.3 K/uL (1.8-8.0); Basophils % 1.2 % (0-1.3); Eosinophils % 5.5 % (0-4.4); Hematocrit 40.8 % (39.6-49.0); Lymphocytes % 24.3 % (15.3-44.8); MCH 25.2 pg (27.0-35.0); MCV 78.8 fL (80-100); MPV 9.6 fL (7.6-11.3); Monocytes % 4.6 % (3.3-12.3); Neutrophils % 64.4 % (41.7-73.7); Platelets 322 thou/uL (152-406); RBC Red Blood Cell Count 5.18 M/uL (4.33-5.43); Red Cell Distribution Width 16.5 % (12.1-15.2)
[2023-10-27 20:42] LABS: ALT/SGPT 59 U/L (16-61); Albumin 3.1 g/dL (3.4-5.0); Albumin/Globulin Ratio 0.6 (1.1-1.8); Alkaline Phosphatase 140 U/L (45-117); Anion Gap 13.8 mEq/L (5.0-15.0); BUN Blood Urea Nitrogen 10 mg/dL (7-18); Bicarbonate 25 mEq/L (21-32); Bilirubin Total 1.7 mg/dL (0.2-1.0); Globulin 5.1 g/dL (2.3-3.5); Glomerular Filtration Rate 96 ml/min (=/>90); Glucose Level 392 mg/dL (74-106); HDL Cholesterol 18 mg/dL (40-60); Lipase 1597 U/L (13-75); Protein, Total 8.2 g/dL (6.4-8.2); Sodium Level 131 mEq/L (136-145)
[2023-10-27 20:43] LABS: AST/SGOT 55 U/L (15-37); Potassium 3.8 mEq/L (3.5-5.1)
[2023-10-27 21:17] LABS: LDL, Direct 31 mg/dL (100-129)
[2023-10-27 22:15] LABS: Specific Gravity > 1.030 (1.005-1.030); Sqamous Epithelial None Seen /HPF (None Seen); Urine Bacteria None Seen /HPF (<20); Urine Bilirubin NEGATIVE (Negative); Urine Blood Negative (Negative); Urine Clarity Clear (Clear); Urine Color Colorless (Yellow); Urine Culture Reflex Order NOT NEEDED; Urine Glucose 4+ (Over) (Negative); Urine Ketones 2+ (Negative); Urine Microscopic Reflex YN ORDER UMIC; Urine Mucus Slight /HPF (None Seen); Urine Nitrite NEGATIVE (Negative); Urine Protein NEGATIVE (Negative); Urine RBC <5 /HPF (None Seen); Urine Urobilinogen Normal (Normal); Urine WBC <5 /HPF (<5); Urine pH 5.5 (5.0-7.0)
--- NOTE | 2023-10-27 22:26 | RAD REPORT ---
EXAM DESCRIPTION: CTAbdomen Pelvis W Contrast - 10/27/2023 10:07 pm CLINICAL HISTORY: Abdominal pain. ABD PAIN COMPARISON: <Comparisons> TECHNIQUE: CT imaging of the abdomen and pelvis was performed with 100 ml non-ionic IV contrast. All CT scans are performed using dose optimization technique as appropriate and may include automated exposure control or mA/KV adjustment according to patient size. FINDINGS: Mild linear atelectasis in the right lung base. Mild diffuse fatty liver is present. The spleen, adrenal glands and kidneys are within normal limits. Moderate inflammation is seen in the region of the pancreatic tail. No bowel obstruction, free air, free fluid or abscess. Moderate stool is present throughout the colon . The appendix is normal. No evidence of significant lymphadenopathy. No suspicious bony findings. IMPRESSION: Moderate inflammation surrounding the pancreatic tail likely represents acute pancreatit is. Mild diffuse fatty liver.
[2023-10-27 22:37] LABS: PT Prothrombin Time 11.6 SECONDS (9.4-12.5); Protime INR 1.04
--- NOTE | 2023-10-27 22:57 | ER ---
Nurse's Notes [facility] Name: Vijay Law Age: 28 yrs Sex: Male : 1995 Arrival Date: 10/27/2023 Time: 18:25 Bed 20 Private MD: Diagnosis: Acute pancreatitis without necrosis or infection, unspecified;Type 2 diabetes mellitus with hyperglycemia Presentation: 10/26 18:55 Chief complaint: Patient states: sudden onset of sharp LUQ pain that started today with me1 N/V. Coronavirus screen: Vaccine status: Patient reports being unvaccinated. Ebola Screen: No symptoms or risks identified at this time. Initial Sepsis Screen: Does the patient meet any 2 criteria? HR > 90 bpm. No. Patient's initial sepsis screen is negative. Does the patient have a suspected source of infection? No. Patient's initial sepsis screen is negative. Risk Assessment: Do you want to hurt yourself or someone else? Patient reports no desire to harm self or others. Onset of symptoms was October 27, 2023. 18:55 Method Of Arrival: Ambulatory [facility] 18:55 Acuity: SUYAPA 3 me1 Triage Assessment: 18:59 General: Appears uncomfortable, ill, obese, well groomed, well developed, well me1 nourished, Behavior is cooperative, appropriate for age, anxious, Reports LUQ abd pain that started earlier today with n/v. Pain: Complains of pain in left upper quadrant Pain does not radiate. Pain currently is 10 out of 10 on a pain scale. Quality of pain is described as sharp, Pain began suddenly, 3 hours ago. Is continuous. EENT: No signs and/or symptoms were reported regarding the EENT system. Neuro: Level of Consciousness is awake, alert, obeys commands, Oriented to person, place, time, situation, Appropriate for age. Cardiovascular: Patient's skin is warm and dry. Respiratory: Airway is patent Trachea midline Respiratory effort is even, unlabored, Respiratory pattern is regular, symmetrical. GI: Reports upper abdominal pain, nausea, vomiting, since earlier today. : No signs and/or symptoms were reported regarding the genitourinary system. Derm: Skin is intact, is healthy with good turgor, Skin is pink, warm \T\ dry. Musculoskeletal: No signs and/or symptoms reported regarding the musculoskeletal system. Historical: - Allergies: 18:59 unknown medication during surgery; me1 - PMHx: 18:59 MIRIAM; diabetes mellitus; Hypertension; Hypothyroidism; Pancreatitis; me1 - PSHx: 18:59 dialysis cath placements; removed; me1 - Immunization history:: Adult Immunizations. - Infectious Disease History:: Denies. - Social history:: Smoking status: Patient denies any tobacco usage or history of. Screenin:02 [facility] ED Fall Risk Assessment (Adult) History of falling in the last 3 months, me1 including since admission No falls in past 3 months (0 pts) Confusion or Disorientation No (0 pts) Intoxicated or Sedated No (0 pts) Impaired Gait No (0 pts) Mobility Assist Device Used No (0 pt) Altered Elimination No (0 pt) Score/Fall Risk Level 0 - 2 = Low Risk Maintained a safe environment, Provided non-skid footwear, Hourly rounding (assess needs \T\ fall precautionary measures) done. Abuse screen: Denies threats or abuse. Nutritional screening: No deficits noted. Tuberculosis screening: No symptoms or risk factors identified. Assessment: 19:02 General: See triage assessment. me1 19:02 GI: Bowel sounds present X 4 quads. Abd is soft X 4 quads. me1 20:44 Reassessment: MANOHAR Marsh notified of critical lab value, CA+ 6.5. Vital Signs: 18:55 BP 137 / 90; Pulse 95; Resp 18; Temp 97.9; Pulse Ox 97% ; Weight 146.51 kg; Height 5 me1 ft. 10 in. ; Pain 10/10; 19:00 BP 137 / 90; Pulse 99; Resp 16; Pulse Ox 97% on R/A; me1 20:00 BP 138 / 97; Pulse 101; Resp 18; Pulse Ox 94% on R/A; me1 20:05 Pain 4/10; me1 21:00 BP 126 / 89; Pulse 103; Resp 17; Pulse Ox 94% on R/A; me1 22:00 BP 144 / 99; Pulse 105; Resp 16; Pulse Ox 96% on R/A; me1 22:32 Pain 7/10; me1 23:15 BP 131 / 89; Pulse 108; Resp 16; Pulse Ox 95% on R/A; me1 23:45 BP 130 / 94; Pulse 100; Resp 15; Pulse Ox 95% ; nm1 10/27 02:17 BP 125 / 94; Pulse 98; Resp 16; Temp 98; Pulse Ox 95% ; 12 10/26 18:55 Body Mass Index 46.35 (146.51 kg, 177.8 cm) nm1 10/26 18:55 Pain Scale: Adult me1 20:05 Pain Scale: Adult me1 22:32 Pain Scale: Adult nm1 ED Course: 10/26 18:26 Patient arrived in ED. mr 18:30 Leticia Kerns PA-C is PHCP. sb4 18:30 Alex Groves MD is Attending Physician. sb4 18:55 Alyssia Bailon, CECY is Primary Nurse. me1 18:59 Triage completed. me1 18:59 Arm band placed on Patient placed in an exam room. me1 19:02 Patient has correct armband on for positive identification. Bed in low position. Call nm1 light in reach. Side rails up X2. Provided Education on: POC. Verbalized understanding. . Client placed on continuous cardiac and pulse oximetry monitoring. NIBP monitoring applied. hospital monitor on. Pulse ox on. NIBP on. 19:02 No provider procedures requiring assistance completed. me1 19:19 Initial lab(s) drawn, by nm, sent to lab. Inserted saline lock: 22 gauge in right nm1 antecubital area, using aseptic technique. 19:20 CT Abd/Pelvis - IV Contrast Only Sent. nm1 19:20 Lipid Profile Sent. me1 19:20 CBC with Diff Sent. nm1 19:20 CMP Sent. nm1 19:20 Lipase Sent. nm1 20:45 Notified Nurse Practitioner and/or Physician Manager Of Change of a critical lab result(s), Ca ss 6.5. 22:09 CT Abd/Pelvis - IV Contrast Only In Process Unspecified. EDMS 22:56 Rodrick Lima MD is Hospitalizing Provider. [facility] 10/27 02:16 Patient admitted, IV remains in place. [facility] Administered Medications: 10/26 19:30 Drug: NS 0.9% IV 1000 ml IV at 1 bolus Per protocol; 1000 mL bolus Route: IV; Rate: 1 me1 bolus; Site: right antecubital; 22:22 Follow up: Response: No adverse reaction; IV Status: Completed infusion; IV Intake: me1 1000ml 19:30 Drug: Ondansetron IVP 4 mg IVP once; over 2 minutes Route: IVP; Site: right antecubital;me1 20:05 Follow up: Response: No adverse reaction; Nausea is decreased me1 19:30 Drug: morphine IVP or IV 4 mg IVP once over 4 mins Route: IVP; Infused Over: 4 mins; me1 Site: right antecubital; 20:05 Follow up: Pain 4/10 Adult; Response: No adverse reaction; Pain is decreased me1 22:29 Drug: NS 0.9% IV 1000 ml IV at 1 bolus Per protocol; 1000 mL bolus Route: IV; Rate: 1 me1 bolus; Site: right antecubital; 23:52 Follow up: Response: No adverse reaction; IV Status: Completed infusion; IV Intake: me1 1000ml 22:30 Drug: morphine IVP or IV 4 mg IVP once over 4 mins Route: IVP; Infused Over: 4 mins; me1 Site: right antecubital; 22:32 Follow up: Pain 7/10 Adult; Response: No adverse reaction; Pain is decreased me1 23:23 Drug: Calcium Gluconate IVPB 2 grams IVPB once over 60 mins; (mix in NS 100 mL) Route: me1 IVPB; Infused Over: 60 mins; Site: right antecubital; Medication: 19:02 VIS not applicable for this client. me1 Intake: 22:22 IV: 1000ml; Total: 1000ml. me1 23:52 IV: 1000ml; Total: 2000ml. me1 Outcome: 22:57 Decision to Hospitalize by Provider. sb4 10/27 02:17 Admitted to Med/surg via wheelchair, room 208, [email or web address] Condition: stable Instructed on the need for admit, Demonstrated understanding of instructions, 02:18 Patient left the ED. [email or web address] Signatures: Dispatcher [employer] EDIN Odessa Villanueva, Reg Reg mr Raegan Verdugo, RN RN Leticia Christian PA-C PA-C sb4 Alyssia Bailon RN RN nm1 Marybeth Morales RN RN [email or web address] Corrections: (The following items were deleted from the chart) 10/26 19:13 18:55 BP 161 / 120; Pulse 104bpm; Resp 18bpm; Pulse Ox 97%; Temp 97.9F; 146.51 kg; nm1 Height 5 ft. 10 in.; BMI: 46.3; Pain 10, Adult; [facility] 22:13 20:00 BP 123 / 70; Pulse 94bpm; Resp 17bpm; Pulse Ox 99% RA; [place] [address] 22:13 20:45 BP 124 / 69; Pulse 94bpm; Resp 16bpm; Pulse Ox 100% RA; [place] [address] 22:13 21:30 BP 131 / 78; Pulse 89bpm; Resp 16bpm; Pulse Ox 99% RA; [place] [address]
--- NOTE | 2023-10-27 22:57 | EDPHYS ---
Physician Documentation [facility] Name: Vijay Law Age: 28 yrs Sex: Male : 1995 Arrival Date: 10/27/2023 Time: 18:25 Bed 20 Private MD: ED Physician Alex Groves HPI: 10/26 19:09 This 28 yrs old Male presents to ER via Ambulatory with complaints of sb4 Abdominal Pain, Vomiting. 19:09 The patient presents with abdominal pain in the epigastric area. Onset: The sb4 symptoms/episode began/occurred today. The symptoms radiate to back. Associated signs and symptoms: Pertinent positives: nausea and vomiting. The symptoms are described as sharp, stabbing. Modifying factors: The symptoms are alleviated by nothing, the symptoms are aggravated by nothing. The patient has experienced similar episodes in the past, multiple times, today's symptoms are similar, to previous pancreatitis. Historical: - Allergies: 18:59 unknown medication during surgery; me1 - PMHx: 18:59 MIRIAM; diabetes mellitus; Hypertension; Hypothyroidism; Pancreatitis; me1 - PSHx: 18:59 dialysis cath placements; removed; me1 - Immunization history:: Adult Immunizations. - Infectious Disease History:: Denies. - Social history:: Smoking status: Patient denies any tobacco usage or history of. ROS: 19:11 Constitutional: Negative for fever, chills, and weight loss, sb4 19:11 Abdomen/GI: Positive for abdominal pain, 19:11 All other systems are negative, Exam: 19:11 Head/Face: Normocephalic, atraumatic. Eyes: Extra-ocular motions intact. Periorbital sb4 areas with no swelling, redness, or edema. ENT: Mucous membranes moist. Cardiovascular: Regular rate and rhythm with a normal S1 and S2. Respiratory: Lungs have equal breath sounds bilaterally, clear to auscultation and percussion. No rales, rhonchi or wheezes noted. No increased work of breathing, no retractions or nasal flaring. Skin: Warm, dry with normal turgor. Normal color with no rashes, no lesions, and no evidence of cellulitis. 19:11 Constitutional: The patient appears alert, awake, obese, in obvious pain, 19:11 Abdomen/GI: Inspection: obese Bowel sounds: normal, Palpation: soft, moderate abdominal tenderness, in the epigastric area and left upper quadrant, Vital Signs: 18:55 BP 137 / 90; Pulse 95; Resp 18; Temp 97.9; Pulse Ox 97% ; Weight 146.51 kg; Height 5 me1 ft. 10 in. ; Pain 10/10; 19:00 BP 137 / 90; Pulse 99; Resp 16; Pulse Ox 97% on R/A; me1 20:00 BP 138 / 97; Pulse 101; Resp 18; Pulse Ox 94% on R/A; me1 20:05 Pain 4/10; me1 21:00 BP 126 / 89; Pulse 103; Resp 17; Pulse Ox 94% on R/A; me1 22:00 BP 144 / 99; Pulse 105; Resp 16; Pulse Ox 96% on R/A; me1 22:32 Pain 7/10; me1 23:15 BP 131 / 89; Pulse 108; Resp 16; Pulse Ox 95% on R/A; me1 23:45 BP 130 / 94; Pulse 100; Resp 15; Pulse Ox 95% ; vt1 10/27 02:17 BP 125 / 94; Pulse 98; Resp 16; Temp 98; Pulse Ox 95% ; 12 10/26 18:55 Body Mass Index 46.35 (146.51 kg, 177.8 cm) [facility] [place] 10/26 18:55 Pain Scale: Adult me1 20:05 Pain Scale: Adult me1 22:32 Pain Scale: Adult me1 MDM: 10/26 18:42 Patient medically screened. sb4 23:07 Data reviewed: vital signs, nurses notes, lab test result(s), radiologic studies, I sb4 have discussed the patient's presentation/case with the attending Emergency Department Physician; and as a result, I will admit patient. Consideration of Admission/Observation Patient was admitted/placed on observation. Care significantly affected by the following chronic conditions: Diabetes, Hypertension, Obesity, Liver Disease. Counseling: I had a detailed discussion with the patient and/or guardian regarding the historical points, exam findings, and any diagnostic results supporting the discharge/admit diagnosis, lab results, radiology results, the need for further work-up and treatment in the hospital. 10/26 19:08 Order name: CBC with Diff; Complete Time: 20:28 sb4 10/26 19:08 Order name: CMP; Complete Time: 21:19 sb4 10/26 19:08 Order name: Lipase; Complete Time: 21:19 sb4 10/26 19:08 Order name: Urinalysis w/ reflexes; Complete Time: 22:16 sb4 10/26 19:08 Order name: Lipid Profile; Complete Time: 21:19 sb4 10/26 20:29 Order name: Blood Culture Adult (2) sb4 10/26 20:29 Order name: Lactate w/ 2H reflex if indic.; Complete Time: 22:24 sb4 10/26 20:29 Order name: PT-INR; Complete Time: 22:59 sb4 10/26 20:29 Order name: Ptt, Activated; Complete Time: 22:59 sb4 10/26 20:47 Order name: LDL, Direct; Complete Time: 21:19 EDMS 10/27 00:04 Order name: Urinalysis w/ reflexes EDMS 10/27 00:04 Order name: CBC with Automated Diff EDMS 10/27 00:04 Order name: CBC with Automated Diff EDMS 10/27 00:04 Order name: Comprehensive Metabolic Panel EDMS 10/27 00:04 Order name: Comprehensive Metabolic Panel EDMS 10/27 00:04 Order name: Magnesium EDMS 10/27 00:04 Order name: Magnesium EDMS 10/27 00:04 Order name: Phosphorus EDMS 10/27 00:04 Order name: Phosphorus EDMS 10/26 19:08 Order name: CT Abd/Pelvis - IV Contrast Only; Complete Time: 22:27 sb4 10/26 19:08 Order name: IV Saline Lock; Complete Time: 19:20 sb4 10/26 19:08 Order name: Labs collected and sent; Complete Time: 19:20 sb4 Administered Medications: 19:30 Drug: NS 0.9% IV 1000 ml IV at 1 bolus Per protocol; 1000 mL bolus Route: IV; Rate: 1 me1 bolus; Site: right antecubital; 22:22 Follow up: Response: No adverse reaction; IV Status: Completed infusion; IV Intake: me1 1000ml 19:30 Drug: Ondansetron IVP 4 mg IVP once; over 2 minutes Route: IVP; Site: right antecubital;me1 20:05 Follow up: Response: No adverse reaction; Nausea is decreased me1 19:30 Drug: morphine IVP or IV 4 mg IVP once over 4 mins Route: IVP; Infused Over: 4 mins; me1 Site: right antecubital; 20:05 Follow up: Pain 4/10 Adult; Response: No adverse reaction; Pain is decreased me1 22:29 Drug: NS 0.9% IV 1000 ml IV at 1 bolus Per protocol; 1000 mL bolus Route: IV; Rate: 1 me1 bolus; Site: right antecubital; 23:52 Follow up: Response: No adverse reaction; IV Status: Completed infusion; IV Intake: me1 1000ml 22:30 Drug: morphine IVP or IV 4 mg IVP once over 4 mins Route: IVP; Infused Over: 4 mins; me1 Site: right antecubital; 22:32 Follow up: Pain 7/10 Adult; Response: No adverse reaction; Pain is decreased me1 23:23 Drug: Calcium Gluconate IVPB 2 grams IVPB once over 60 mins; (mix in NS 100 mL) Route: me1 IVPB; Infused Over: 60 mins; Site: right antecubital; Disposition Summary: 10/27/23 22:57 Hospitalization Ordered Notes: Hospitalization Status: Inpatient Admission sb4 Provider: Rodrick Lima sbLuis Location: Telemetry/[facility] (Inpatient) sb4 Condition: Fair sb4 Problem: an acute exacerbation sb4 Symptoms: are unchanged sb4 Bed/Room Type: Standard sb4 Room Assignment: 208(10/28/23 00:11) sp Diagnosis - Acute pancreatitis without necrosis or infection, unspecified sb4 - Type 2 diabetes mellitus with hyperglycemia sb4 Forms: - Medication Reconciliation Form sb4 - SBAR form sb4 - Leadership Thank You Letter sb4 Addendum: 10/29/2023 19:49 Co-signature as Attending Physician, Alex Groves MD I reviewed the patient's care r t provided by the Advanced Practice Provider and agree with the diagnosis and treatment plan. Signatures: Dispatcher [employer] Melvina Blank Sophia, PA-C PAJennifer sb4 Alex Groves MD MD rt Alyssia Bailon RN RN me1 Corrections: (The following items were deleted from the chart) 10/27 00:11 10/26 22:57 sb4 sp
[2023-10-27 22:58] LABS: PTT, Activated Partial Thromb 42.8 SECONDS (24.3-36.9)
[2023-10-27] MEDS ORDERED: CALCIUM GLUCONATE 1 GM IVPB 1 GM/50 ML BAG IV ONE (23:16)
[2023-10-27] MEDS: CALCIUM GLUCONATE 1 GM IVPB 1 GM/50 ML BAG IV ONE (23:28)
--- NOTE | 2023-10-27 23:58 | P.HP ---
Certification for Inpatient Patient admitted to: Inpatient With expected LOS: >2 Midnights Practitioner: I am a practitioner with admitting privileges, knowledge of patient current condition, hospital course, and medical plan of care. Services: Services provided to patient in accordance with Admission requirements found in Title 42 Section 412.3 of the Code of Federal Regulations Patient History Date of Service: 10/28/23 Reason for admission: Abdominal pain History of Present Illness: 28 yrs old Male with history of insulin-dependent diabetes, previous renal failu re requiring dialysisnow recovered, hypertension, hyperlipidemia/hypertriglyceridemia, pancreatitis presents the emergency department chief complaint of abdominal pain. He reports his abdominal pain began today , described as sharp, nonradiating with moderate epigastric tenderness. associated with nausea and vomiting. The symptoms are described as sharp, stabbing with radiation to back. No Modifying factors:The patient has experienced similar episodes in the past, multiple times, today's symptoms are similar, to previous pancreatitis. Patient was assessed in the ER and was admitted for further management of acute on chronic pancreatitis Allergies No Known Allergies Allergy (Verified 07/29/22 15:10) Home medications list reviewed: Yes Home Medications: Levothyroxine [Synthroid*] 88 mcg PO DAILY #30 tab 08/02/22 gemfibroziL [Lopid*] 600 mg PO BID #60 tab 08/02/22 Empagliflozin [Jardiance] 25 mg PO DAILY 10/28/23 Gabapentin 300 mg PO BEDTIME 10/28/23 Insulin Glargine,Hum.rec.anlog [Lantus Solostar] 25 unit SQ BID 10/28/23 Insulin Regular, Human [Novolin R Flexpen] 12 units SQ TID 10/28/23 - Past Medical/Surgical History Diabetic: Yes Past Medical History: Reviewed- Non-Contributory -: hypothyroid -: was hospitalized 02/2017 for hyperglycemia, quit taking insulin per his MD -: DM II -: obesity -: htn -: high cholesterol -: Hypertriglyceridemia/pancreatitis -: Acute renal failure requiring dialysis-recovered Past Surgical History: Reviewed- Non-Contributory -: Dialysis catheter placement Psychosocial/ Personal History: Lives at home with family - Family History Family History: Reviewed- Non-Contributory - Social History Smoking Status: Never smoker Alcohol use: No CD- Drugs: No Caffeine use: Yes Review of Systems 10-point ROS is otherwise unremarkable Physical Examination - Vital Signs Temperature: 97.9 F Blood Pressure: 136/90 Pulse: 96 Respirations: 18 Pulse Ox (%): 94 - Physical Exam General: Alert, In no apparent distress, Oriented x3, Obese HEENT: Atraumatic, Normocephalic Neck: Supple, JVD not distended Respiratory: Clear to auscultation bilaterally, Normal air movement Cardiovascular: Regular rate/rhythm, Normal S1 S2 Capillary refill: <2 Seconds Gastrointestinal: Soft and benign, W/out hepatosplenomegaly, Tenderness Musculoskeletal: No clubbing, No swelling Integumentary: No rashes, No significant lesion Neurological: Normal speech, Normal strength at 5/5 x4 extr Lymphatics: No axilla or inguinal lymphadenopathy - Studies Laboratory Data (last 24 hrs) 10/27/23 10/27/23 10/27/23 21:31 19:58 19:17 WBC 16.00 H Hgb 13.0 L Hct 40.8 Plt Count 322 PT 11.6 INR 1.04 APTT 42.8 H Sodium 131 L Potassium 3.8 BUN 10 Creatinine 1.07 Glucose 392 H Total Bilirubin 1.7 H AST 55 H ALT 59 Alkaline Phosphatase 140 H Triglycerides 650 H Cholesterol 120 LDL Cholesterol Direct 31 L HDL Cholesterol 18 L Cholesterol/HDL Ratio 6.67 Lipase 1597 H Assessment and Plan - Plan Acute on chronic pancreatitis Hypertriglyceridemia induced Insulin-dependent diabetes with hyperglycemia noncompliance Obesity Hypertension Plan: Will keep n.p.o. for now Aggressive hydration Monitor closely under telemetry Pain control Hyperglycemia noted 650 Monitor lipid panel in a.m. Will also monitor lipase levels Insulin-dependent diabetes with hyperglycemia noncompliance Counseled on importance of adherence with home meds/insulin. Started on insulin sliding scale with basal insulin Accu-Chek before every meal and at bedtime Will get an A1c in a.m. Obesity Counseled on need for lifestyle changes. Hypertension Hold oral medications, as needed IV meds for significant hypertension. DVT PPX: Lovenox Code status: Full Discharge Plan: Home Plan to discharge in: 48 Hours - Advance Directives Does patient have a Living Will: No Does patient have a Durable POA for Healthcare: No - Code Status/Comfort Care Code Status: Full Code Time Spent Managing Pts Care (In Minutes): 48
[2023-10-28] MEDS ORDERED: GLUCAGON 1 MG/VIAL IM PRN (00:04)
[2023-10-28] MEDS: ONDANSETRON 4 MG/2 ML VIAL ONE (03:00)
[2023-10-28] MEDS: INSULIN REGULAR (HUMAN) 100 UNIT/ML SQ SCH (03:04)
[2023-10-28] MEDS: MORPHINE 2 MG/ML SYR IV PRN (03:07)
[2023-10-28] MEDS: ONDANSETRON 4 MG/2 ML VIAL IV PRN (03:07)
[2023-10-28] MEDS: Ringers Lactate 1,000 ML IV SCH (03:08)
[2023-10-28] MEDS: HYDROMORPHONE HCL 1 MG/ML INJ IV PRN (05:21)
[2023-10-28] MEDS ORDERED: INSULIN REGULAR (HUMAN) 100 UNIT/ML SQ SCH ×2 (07:30)
[2023-10-28] MEDS: ENOXAPARIN 40 MG/0.4 ML SQ SCH (08:51)
[2023-10-28] MEDS: INSULIN GLARGINE 100 UNIT/ML SQ SCH (08:52)
--- NOTE | 2023-10-28 12:27 | P.PN ---
Subjective Date of Service: 10/28/23 Chief Complaint: Abdominal pain Patient reports intermittent abdominal pain, no nausea or vomiting. Physical Examination - Vital Signs Temperature: 99.3 F Blood Pressure: 138/84 Pulse: 123 Respirations: 18 Pulse Ox (%): 98 - Studies Laboratory Data (last 24 hrs) 10/27/23 10/27/23 10/27/23 21:31 19:58 19:17 WBC 16.00 H Hgb 13.0 L Hct 40.8 Plt Count 322 PT 11.6 INR 1.04 APTT 42.8 H Sodium 131 L Potassium 3.8 BUN 10 Creatinine 1.07 Glucose 392 H Total Bilirubin 1.7 H AST 55 H ALT 59 Alkaline Phosphatase 140 H Triglycerides 650 H Cholesterol 120 LDL Cholesterol Direct 31 L HDL Cholesterol 18 L Cholesterol/HDL Ratio 6.67 Lipase 1597 H Assessment And Plan - Plan Physical examination General: Alert and oriented x3, NAD, morbidly obese. HEENT: Conjunctiva not pale, anicteric sclera Neck: Supple, no elevated JVD Heart: Heart sounds 1 and 2 normal, regular rhythm, normal rate, no pedal edema Lungs: Clear to auscultation bilaterally, adequate breath sounds bilaterally, no rhonchi or crackles. Abdomen: Soft, obese abdomen, moderate epigastric tenderness, no RBT or guarding normal bowel sounds. Extremities: No tenderness, no deformity Skin: Normal skin turgor, no rash, no nodules or ulcers. Neuro: No focal motor deficit. Normal speech. Psychiatry: Normal mood, no agitation. Diagnosis Acute on chronic pancreatitis Hypertriglyceridemia induced pancreatitis Insulin-dependent diabetes with hyperglycemia Medication noncompliance Morbid obesity Hypertension Plan: Acute on chronic pancreatitis Hypertriglyceridemia Acute pancreatitis likely secondary to hypertriglyceridemia. Supportive measures Aggressive hydration Keep n.p.o. for now Analgesics as needed. Triglyceride level is 650. Continue gemfibrozil. Monitor triglyceride level Monitor lipase Will consider insulin drip if lipase level and triglyceride level remain high Monitor and correct electrolytes as needed. Insulin-dependent diabetes with hyperglycemia Medication noncompliance Counseled on importance of adherence with home meds/insulin. insulin sliding scale. Low-dose Lantus insulin. Morbid obese Weight loss by diet and exercise advised. DVT PPX: Lovenox Code status: Full
[2023-10-28] MEDS: gemfibroziL 600 MG TAB PO SCH (21:26)
[2023-10-28] MEDS: METOPROLOL TAR 50 MG TAB PO ONE (21:26)
[2023-10-28] MEDS: GABAPENTIN 300 MG CAP PO SCH (21:26)
[2023-10-29 06:36] LABS: Absolute Basophils 0.1 K/uL (0-0.5); Absolute Eosinophils 0.1 K/uL (0-0.5); Absolute Lymphocytes (CBC) 2.6 K/uL (0.7-4.9); Absolute Monocytes 1.7 K/uL (0.1-1.3); Absolute Neutrophil 12.7 K/uL (1.8-8.0); Basophils % 0.8 % (0-1.3); Eosinophils % 0.8 % (0-4.4); Hematocrit 41.1 % (39.6-49.0); Hemoglobin 12.9 g/dL (13.6-17.9); MCH 25.3 pg (27.0-35.0); MCHC 31.5 g/dL (32.0-36.0); MCV 80.3 fL (80-100); MPV 9.8 fL (7.6-11.3); Monocytes % 9.9 % (3.3-12.3); Neutrophils % 73.5 % (41.7-73.7); Nucleated Red Blood Cells % 0.1 % (0-0); Platelets 292 thou/uL (152-406); RBC Red Blood Cell Count 5.11 M/uL (4.33-5.43); Red Cell Distribution Width 16.6 % (12.1-15.2)
[2023-10-29 07:19] LABS: Albumin 2.8 g/dL (3.4-5.0); Albumin/Globulin Ratio 0.6 (1.1-1.8); Anion Gap 16.1 mEq/L (5.0-15.0); Bilirubin Total 0.9 mg/dL (0.2-1.0); Globulin 4.6 g/dL (2.3-3.5); Magnesium 2.1 mg/dL (1.6-2.4); Phosphorus 2.2 mg/dL (2.5-4.9); Potassium 4.1 mEq/L (3.5-5.1); Protein, Total 7.4 g/dL (6.4-8.2)
[2023-10-29] MEDS: LEVOTHYROXINE SOD 0.1 MG TAB PO SCH (08:19)
[2023-10-29] MEDS ORDERED: D50W 25 GM/50 ML SYRINGE IV PRN (10:10)
[2023-10-29] MEDS ORDERED: GLUCAGON 1 MG/VIAL IM PRN (10:10)
[2023-10-29] MEDS ORDERED: D10W 125 ML IV PRN (10:38)
[2023-10-29] MEDS: D5 0.9 NS 1,000 ML IV SCH (11:02)
[2023-10-29] MEDS: INSULIN REGULAR, HUMAN 100 UNIT in NA CHLORIDE 0.9% 100 ML IV SCH (11:03)
--- NOTE | 2023-10-29 12:02 | P.PN ---
Subjective Date of Service: 10/29/23 Chief Complaint: Abdominal pain Patient reports intermittent abdominal pain and generalized weakness. No reported nausea or vomiting. No reported fever. Physical Examination - Vital Signs Temperature: 97.8 F Blood Pressure: 129/69 Pulse: 123 Respirations: 20 Pulse Ox (%): 92 Assessment And Plan - Plan Physical examination General: Alert and oriented x3, NAD, morbidly obese. HEENT: Anicteric sclera Neck: Supple, no elevated JVD Heart: Heart sounds 1 and 2 normal, regular rhythm, normal rate, no pedal edema Lungs: Clear to auscultation bilaterally, adequate breath sounds bilaterally, no rhonchi or crackles. Abdomen: Soft, obese abdomen, moderate epigastric tenderness, no RBT or guarding normal bowel sounds. Extremities: No tenderness, no deformity Skin: Normal skin turgor, no rash, no nodules or ulcers. Neuro: No focal motor deficit. Normal speech. Psychiatry: Normal mood, no agitation. Diagnosis Acute on chronic pancreatitis Hypertriglyceridemia induced pancreatitis Insulin-dependent diabetes with hyperglycemia Medication noncompliance Morbid obesity Hypertension Plan: Acute on chronic pancreatitis Hypertriglyceridemia Acute pancreatitis likely secondary to hypertriglyceridemia. Lipase level normalized. Continue supportive measures with aggressive IV hydration Keep n.p.o. Triglyceride level significantly increased to 1600 Patient transfered to the ICU and started on insulin drip. Monitor triglyceride level. Analgesics as needed. Continue gemfibrozil. Monitor and correct electrolytes as needed. Insulin-dependent diabetes with hyperglycemia Medication noncompliance Counseled on importance of adherence with home meds/insulin. Patient started on insulin drip for hypertriglyceridemia Gram-negative bacteremia Patient started on IV Rocephin. Follow blood culture Morbid obese Weight loss by diet and exercise advised. DVT PPX: Lovenox Code status: Full
[2023-10-29 18:04] LABS: Phosphorus 1.6 mg/dL (2.5-4.9)
[2023-10-29] MEDS: SODIUM PHOSPHATE 15 MM in NA CHLORIDE 0.9% 250 ML IV ONE (20:00)
[2023-10-29] MEDS: POTASSIUM PHOS IN 0.9 % NACL 15 MMOL/250 ML BAG IV ONE (21:16)
[2023-10-30 05:20] LABS: Absolute Basophils 0.1 K/uL (0-0.5); Absolute Eosinophils 0.8 K/uL (0-0.5); Absolute Lymphocytes (CBC) 2.6 K/uL (0.7-4.9); Absolute Monocytes 1.4 K/uL (0.1-1.3); Absolute Neutrophil 12.2 K/uL (1.8-8.0); Basophils % 0.4 % (0-1.3); Eosinophils % 4.7 % (0-4.4); Hematocrit 35.8 % (39.6-49.0); Hemoglobin 11.4 g/dL (13.6-17.9); MCH 25.3 pg (27.0-35.0); MCHC 31.8 g/dL (32.0-36.0); MCV 79.5 fL (80-100); MPV 9.1 fL (7.6-11.3); Monocytes % 8.2 % (3.3-12.3); Neutrophils % 71.7 % (41.7-73.7); Nucleated Red Blood Cells % 0.1 % (0-0); Platelets 277 thou/uL (152-406); RBC Red Blood Cell Count 4.51 M/uL (4.33-5.43); Red Cell Distribution Width 16.9 % (12.1-15.2)
[2023-10-30 05:41] LABS: Anion Gap 13.8 mEq/L (5.0-15.0); Potassium 3.8 mEq/L (3.5-5.1)
[2023-10-30 05:54] LABS: Magnesium 1.9 mg/dL (1.6-2.4); Phosphorus 1.6 mg/dL (2.5-4.9)
[2023-10-30] MEDS: POTASSIUM PHOS IN 0.9 % NACL 15 MMOL/250 ML BAG IV ONE (06:26)
[2023-10-30] MEDS: LEVOTHYROXINE SOD 0.088 MG TAB PO SCH (08:41)
[2023-10-30] MEDS: CEFTRIAXONE 2,000 MG in NA CHLORIDE 0.9% 100 ML IV SCH (08:42)
[2023-10-30] MEDS: Levofloxacin 750mg IV 750 MG/150 ML BAG IV SCH (13:00)
--- NOTE | 2023-10-30 13:34 | P.PN ---
Subjective Date of Service: 10/30/23 Chief Complaint: Abdominal pain Patient reports his abdominal pain is better controlled today No nausea or vomiting. He reports loss of appetite. No reported fever. Physical Examination - Vital Signs Temperature: 97.5 F Blood Pressure: 153/91 Pulse: 118 Respirations: 22 Pulse Ox (%): 96 Assessment And Plan - Plan Physical examination General: Alert and oriented x3, NAD, morbidly obese. HEENT: Anicteric sclera Neck: No elevated JVD Heart: Heart sounds 1 and 2 normal, regular rhythm, normal rate, no pedal edema Lungs: Clear to auscultation bilaterally, adequate breath sounds bilaterally, no rhonchi or crackles. Abdomen: Soft, obese abdomen, moderate epigastric tenderness, no RBT or guarding normal bowel sounds. Extremities: No tenderness, no deformity Skin: Normal skin turgor, no rash, no nodules or ulcers. Neuro: No focal motor deficit. Normal speech. Psychiatry: Normal mood, no agitation. Diagnosis Acute on chronic pancreatitis Hypertriglyceridemia induced pancreatitis Insulin-dependent diabetes with hyperglycemia Medication noncompliance Morbid obesity Hypertension Plan: Acute on chronic pancreatitis Hypertriglyceridemia Acute pancreatitis likely secondary to hypertriglyceridemia. Lipase level normalized. Continue supportive measures with aggressive IV hydration Keep n.p.o. Triglyceride level increased to 1600, and now trending down. Continue insulin drip. Monitor triglyceride level. Analgesics as needed. Continue gemfibrozil. Monitor and correct electrolytes as needed. Insulin-dependent diabetes with hyperglycemia Medication noncompliance Counseled on importance of adherence with home meds/insulin. Patient started on insulin drip for hypertriglyceridemia Pseudomonas bacteremia Unknown source, probably translocation from GI tract. IV Rocephin changed to IV Levaquin Patient may need to complete 5 to 7 days of IV antibiotics. Morbid obese Weight loss by diet and exercise advised. DVT PPX: Lovenox Code status: Full
[2023-10-30] MEDS: ONDANSETRON 4 MG/2 ML VIAL IV PRN (21:23)
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
[2023-10-31 07:04] LABS: Absolute Basophils 0.1 K/uL (0-0.5); Absolute Eosinophils 1.1 K/uL (0-0.5); Absolute Lymphocytes (CBC) 2.7 K/uL (0.7-4.9); Absolute Monocytes 0.9 K/uL (0.1-1.3); Absolute Neutrophil 11.5 K/uL (1.8-8.0); Basophils % 0.8 % (0-1.3); Eosinophils % 6.8 % (0-4.4); Hematocrit 35.6 % (39.6-49.0); Hemoglobin 11.3 g/dL (13.6-17.9); Lymphocytes % 16.5 % (15.3-44.8); MCH 25.1 pg (27.0-35.0); MCHC 31.7 g/dL (32.0-36.0); MCV 79.1 fL (80-100); MPV 9.4 fL (7.6-11.3); Monocytes % 5.5 % (3.3-12.3); Neutrophils % 70.4 % (41.7-73.7); Nucleated Red Blood Cells % 0.2 % (0-0); Platelets 286 thou/uL (152-406); RBC Red Blood Cell Count 4.49 M/uL (4.33-5.43); Red Cell Distribution Width 16.6 % (12.1-15.2)
[2023-10-31 07:30] LABS: Albumin 2.1 g/dL (3.4-5.0); Albumin/Globulin Ratio 0.4 (1.1-1.8); Anion Gap 12.3 mEq/L (5.0-15.0); Bilirubin Total 0.4 mg/dL (0.2-1.0); Magnesium 1.7 mg/dL (1.6-2.4); Phosphorus 1.6 mg/dL (2.5-4.9); Potassium 3.3 mEq/L (3.5-5.1); Protein, Total 7.1 g/dL (6.4-8.2)
[2023-10-31] MEDS: MAGNESIUM SULFATE 1 gm IVPB 1 GM/100 ML BAG IV ONE (08:29)
[2023-10-31] MEDS: POTASSIUM PHOS IN 0.9 % NACL 15 MMOL/250 ML BAG IV ONE (08:29)
[2023-10-31] MEDS: POTASSIUM CL SA 10 MEQ TAB PO ONE (08:30)
--- NOTE | 2023-10-31 11:41 | P.CNS ---
Date of Consult: 10/31/23 Reason for Consult: Bacteremia Requesting Physician: Abran John Chief Complaint: Abdominal pain History of Present Illness: There is a 28-year-old male I was consulted for bacteremia. Patient is currently getting IV antibiotic continue have some abdominal pain of level 6. Patient was sleeping when I walked into the room denies any problems with antibiotic no allergies no nausea vomiting or diarrhea. Patient has significant past medical history of hypertriglyceridemia, and diabetes mellitus for which she is taking insulin Allergies No Known Allergies Allergy (Verified 07/29/22 15:10) Home medications list reviewed: Yes Home Medications: Levothyroxine [Synthroid*] 88 mcg PO DAILY #30 tab 08/02/22 gemfibroziL [Lopid*] 600 mg PO BID #60 tab 08/02/22 Empagliflozin [Jardiance] 25 mg PO DAILY 10/28/23 Gabapentin 300 mg PO BEDTIME 10/28/23 Insulin Glargine,Hum.rec.anlog [Lantus Solostar] 25 unit SQ BID 10/28/23 Insulin Regular, Human [Novolin R Flexpen] 12 units SQ TID 10/28/23 - Past Medical/Surgical History Diabetic: Yes -: hypothyroid -: was hospitalized 02/2017 for hyperglycemia, quit taking insulin per his MD -: DM II -: obesity -: htn -: high cholesterol -: Hypertriglyceridemia/pancreatitis -: Acute renal failure requiring dialysis-recovered -: Dialysis catheter placement Psychosocial/ Personal History: Lives at home with family - Social History Alcohol use: No CD- Drugs: No Caffeine use: Yes Place of Residence: Home Review of Systems 10-point ROS is otherwise unremarkable Physical Examination Temp Pulse Resp BP Pulse Ox 97.0 F 108 H 16 123/99 H 96 10/31/23 11:00 10/31/23 11:00 10/31/23 11:00 10/31/23 11:00 10/31/23 11:00 General: Alert, Oriented x3 HEENT: Atraumatic, Normocephalic, PERRLA Neck: Supple, Without JVD or thyroid abnormality Respiratory: Clear to auscultation bilaterally Cardiovascular: No edema, Normal pulses, No rubs Gastrointestinal: Normal bowel sounds, Tenderness Musculoskeletal: No clubbing, No swelling, No contractures, No erythema Neurological: Normal gait Lymphatics: No axilla or inguinal lymphadenopathy External genitalia: Deferred - Problems (1) Acute pancreatitis Current Visit: No Status: Acute (2) Gram-positive bacteremia Current Visit: No Status: Acute (3) Hypertriglyceridemia Current Visit: No Status: Acute (4) Sepsis Current Visit: No Status: Acute Conclusions/Impression: Bacteremia secondary to Pseudomonas will recommend Levaquin for 10 days can be switched to p.o. on discharge Physician Review: Patient Assessed, Agree with Above Assessment and Plan
[2023-10-31] MEDS ORDERED: INSULIN REGULAR, HUMAN 100 UNIT in NA CHLORIDE 0.9% 100 ML IV SCH (17:00)
[2023-10-31] MEDS: ACETAMINOPHEN 325 MG TABLET PO PRN (20:42)
[2023-11-01 05:23] LABS: Absolute Basophils 0.1 K/uL (0-0.5); Absolute Eosinophils 0.9 K/uL (0-0.5); Absolute Lymphocytes (CBC) 2.7 K/uL (0.7-4.9); Absolute Monocytes 0.9 K/uL (0.1-1.3); Absolute Neutrophil 8.9 K/uL (1.8-8.0); Basophils % 0.8 % (0-1.3); Eosinophils % 6.4 % (0-4.4); Hematocrit 35.5 % (39.6-49.0); Hemoglobin 11.3 g/dL (13.6-17.9); Lymphocytes % 20.2 % (15.3-44.8); MCHC 31.8 g/dL (32.0-36.0); MCV 78.6 fL (80-100); MPV 8.8 fL (7.6-11.3); Monocytes % 6.5 % (3.3-12.3); Neutrophils % 66.1 % (41.7-73.7); Nucleated Red Blood Cells % 0.2 % (0-0); Platelets 296 thou/uL (152-406); RBC Red Blood Cell Count 4.52 M/uL (4.33-5.43); Red Cell Distribution Width 16.7 % (12.1-15.2)
[2023-11-01 05:41] LABS: Albumin 2.1 g/dL (3.4-5.0); Albumin/Globulin Ratio 0.5 (1.1-1.8); Anion Gap 9.2 mEq/L (5.0-15.0); Bilirubin Total 0.4 mg/dL (0.2-1.0); Globulin 4.5 g/dL (2.3-3.5); Protein, Total 6.6 g/dL (6.4-8.2)
[2023-11-01 05:46] LABS: Magnesium 1.7 mg/dL (1.6-2.4); Potassium 3.2 mEq/L (3.5-5.1)
[2023-11-01] MEDS: POTASSIUM CL SA 10 MEQ TAB PO ONE ×2 (08:00→09:31)
[2023-11-01] MEDS: MAGNESIUM SULFATE 1 gm IVPB 1 GM/100 ML BAG IV ONE (08:00)
--- NOTE | 2023-11-01 09:18 | P.PN ---
Date of Service: 11/01/23 Subjective: continues with abdominal pain but improving. Not needing as frequent pain medication tolerating some clear liquids without issues no new / worsening problems no BM for a few days, +flatus ROS: 10 point ROS as noted above, otherwise negative Physical Exam: GEN: Alert, oriented, NAD HEENT: Normal conjunctiva, sclera anicteric CV: Regular rate and rhythm, no edema Pulm: Nonlabored respirations on room air, clear bilaterally ABD: Soft, mild tenderness in epigastrium vitals reviewed Problem List: Hypertriglyceridemia induced acute pancreatitis; recurrent IDDM2 with hyperglycemia Morbid obesity Hypothyroidism Hypertension Hypertriglyceridemia induced acute pancreatitis; recurrent CT abdomen (10/26): moderate inflammation surrounding pancreatic tail. +mild diffuse fatty liver acute pancreatitis secondary to hypertriglyceridemia. Continue IV fluids, continue insulin drip until TG <500 Monitor and correct electrolytes as needed. Triglycerides improving - down to 532 (10/31) Lipase resolved (10/29) pain control advance to full liquids today IDDM2 with hyperglycemia Started on insulin drip for hypertriglyceridemia 10/28 continue IV fluids Pseudomonas bacteremia blood cx (10/26): Pseudomonas Stutzeri in 1/ bottles Unknown source, possibly translocation from GI tract vs skin contaminant IV Rocephin changed to IV Levaquin 10/29 continue IV levaquin (10/29-11/07) for 10 days total per ID. Can be deescalated to PO on discharge. afebrile, +leukocytosis improving ID following Morbid obesity Weight loss by diet and exercise advised. Hypothyroidism continue home synthroid VTE: Lovenox Code: Full Dispo: Home, ~1-2 days Pending improvement of tryglycerides, pain control Time Spent Managing Pts Care (In Minutes): 40
[2023-11-01 09:47] LABS: Band Neutrophils 6 % (0-1); Blood Morphology Comment NOT SEEN (NOT SEEN); Differential Total Cells Count 100; Eosinophils 5 % (0-3); Lymphocytes 18 % (15-42); Monocytes 7 % (0-10); Platelet Estimate ADEQ; Segmented Neutrophils 64 % (40-80)
[2023-11-02 05:11] VITALS: BMI 44.9
[2023-11-02 05:39] LABS: Absolute Basophils 0.2 K/uL (0-0.5); Absolute Eosinophils 0.7 K/uL (0-0.5); Absolute Lymphocytes (CBC) 3.2 K/uL (0.7-4.9); Absolute Monocytes 1.2 K/uL (0.1-1.3); Absolute Neutrophil 9.4 K/uL (1.8-8.0); Eosinophils % 5.1 % (0-4.4); Hematocrit 37.3 % (39.6-49.0); Hemoglobin 11.8 g/dL (13.6-17.9); MCH 24.8 pg (27.0-35.0); MCHC 31.6 g/dL (32.0-36.0); MCV 78.7 fL (80-100); MPV 9.5 fL (7.6-11.3); Monocytes % 7.8 % (3.3-12.3); Neutrophils % 64.1 % (41.7-73.7); Platelets 303 thou/uL (152-406); RBC Red Blood Cell Count 4.74 M/uL (4.33-5.43); Red Cell Distribution Width 16.8 % (12.1-15.2)
--- NOTE | 2023-11-02 06:19 | P.PN ---
Date of Service: 11/02/23 Subjective: pain improving, less frequent, less severe but still having some intermittent sudden pains with nausea ROS: 10 point ROS as noted above, otherwise negative Physical Exam: GEN: Alert, oriented HEENT: Normal conjunctiva, sclera anicteric CV: Regular rate and rhythm with occasional sinus tachycardia, no edema Pulm: Non-labored respirations on room air ABD: Soft, mild tenderness in epigastrium vitals reviewed Problem List: Hypertriglyceridemia induced acute pancreatitis; recurrent IDDM2 with hyperglycemia Morbid obesity Hypothyroidism Hypertension Hypertriglyceridemia induced acute pancreatitis; recurrent IDDM2 with hyperglycemia CT abdomen (10/26): moderate inflammation surrounding pancreatic tail. +mild diffuse fatty liver TG <500 11/01, dc IVF, dc insulin drip transition to semglee, and sliding scale monitor for a few hours this AM, and anticipate downgrade to floor later todaty Lipase normalized (10/29) pain control - wean IV pain meds advance to diabetic / low fat diet Pseudomonas bacteremia blood cx (10/26): Pseudomonas Stutzeri in 1/ bottles Unknown source, possibly translocation from GI tract vs skin contaminant no evidence of infection IV Rocephin changed to IV Levaquin 10/29 continue IV levaquin (10/29-11/07) for 10 days total per ID. Can be deescalated to PO on discharge. afebrile, +leukocytosis improving ID following Morbid obesity Weight loss by diet and exercise advised. Hypothyroidism continue home synthroid VTE: Lovenox Code: Full Dispo: Home, ~1-2 days Time Spent Managing Pts Care (In Minutes): 40
[2023-11-02 06:34] LABS: Albumin 2.1 g/dL (3.4-5.0); Albumin/Globulin Ratio 0.4 (1.1-1.8); Anion Gap 11.4 mEq/L (5.0-15.0); Bilirubin Total 0.5 mg/dL (0.2-1.0); Globulin 4.7 g/dL (2.3-3.5); Magnesium 1.8 mg/dL (1.6-2.4); Potassium 3.4 mEq/L (3.5-5.1); Protein, Total 6.8 g/dL (6.4-8.2)
[2023-11-02] MEDS: HYDROCODONE/APAP 5/325 MG TAB PO PRN (07:40)
[2023-11-02] MEDS: POTASSIUM CL SA 10 MEQ TAB PO ONE (08:58)
[2023-11-02] MEDS: INSULIN GLARGINE 100 UNIT/ML SQ SCH (08:58)
[2023-11-02] MEDS: MAGNESIUM SULFATE 1 gm IVPB 1 GM/100 ML BAG IV ONE (08:58)
[2023-11-02] MEDS: INSULIN REGULAR (HUMAN) 100 UNIT/ML SQ SCH (11:30)
[2023-11-02] MEDS: HYDROMORPHONE HCL 1 MG/ML INJ IV PRN (18:37)
[2023-11-03 05:20] VITALS: O2SAT 98
[2023-11-03 07:18] LABS: Absolute Basophils 0.1 K/uL (0-0.5); Absolute Eosinophils 0.6 K/uL (0-0.5); Absolute Lymphocytes (CBC) 3.6 K/uL (0.7-4.9); Absolute Monocytes 1.1 K/uL (0.1-1.3); Basophils % 0.9 % (0-1.3); Eosinophils % 4.3 % (0-4.4); Hematocrit 36.5 % (39.6-49.0); Hemoglobin 11.7 g/dL (13.6-17.9); MCH 24.9 pg (27.0-35.0); MCV 77.7 fL (80-100); MPV 8.6 fL (7.6-11.3); Monocytes % 7.6 % (3.3-12.3); Neutrophils % 62.2 % (41.7-73.7); Nucleated Red Blood Cells % 0.1 % (0-0); Platelets 326 thou/uL (152-406); Red Cell Distribution Width 16.5 % (12.1-15.2)
[2023-11-03 07:30] LABS: Albumin 2.2 g/dL (3.4-5.0); Albumin/Globulin Ratio 0.5 (1.1-1.8); Anion Gap 9.5 mEq/L (5.0-15.0); Bilirubin Total 0.4 mg/dL (0.2-1.0); Globulin 4.7 g/dL (2.3-3.5); Magnesium 1.8 mg/dL (1.6-2.4); Potassium 3.5 mEq/L (3.5-5.1); Protein, Total 6.9 g/dL (6.4-8.2)
[2023-11-03 08:28] VITALS: BP 139/81; TEMP 97.3
--- NOTE | 2023-11-03 10:07 | P.DS ---
Admission Date: 10/27/23 Discharge Date: 11/03/23 Disposition: ROUTINE DISCHARGE Discharge Condition: GOOD Reason for Admission: Abdominal pain Consultations: ID - Dr. Lang Brief History of Present Illness: 28 yo M, PMH: previous renal failure requiring dialysisnow recovered, hypertension, hyperlipidemia/hypertriglyceridemia, pancreatitis Patient presents the emergency department chief complaint of abdominal pain. He reports his abdominal pain began today , described as sharp, nonradiating with moderate epigastric tenderness. associated with nausea and vomiting. The symptoms are described as sharp, stabbing with radiation to back. No Modifying factors:The patient has experienced similar episodes in the past, multiple times, today's symptoms are similar, to previous pancreatitis. Patient was assessed in the ER and was admitted for further management of acute on chronic pancreatitis Hospital Course: Problem List: Hypertriglyceridemia induced acute pancreatitis; recurrent IDDM2 with hyperglycemia Morbid obesity Hypothyroidism Hypertension Physician discharge instructions: Patient presented with sharp epigastric abdominal pain, nausea with vomiting. Labwork in ED with elevated lipase 1597, Triglycerides 650, consistent with Hypertriglyceridemia induced acute pancreatitis. Patient reported similar symptoms to prior episodes. CT abdomen on admission noted moderate inflammation surrounding pancreatic tail and mild diffuse fatty liver. Patient was given IV fluids in ED and started on an insulin drip and had improvement of his symptoms. Insulin drip was transitioned to subq 11/01 and IVF were discontinued once triglycerides were < 500. Diet was slowly advanced and patient continued to improve daily. Patient was feeling better, abdominal pain improving and more tolerable on oral pain medication, nausea/vomiting resolved, afebrile throughout hospitalization, and was deemed stable for discharge. Patient able to tolerate regular low fat diet on day of discharge without issues. Recommend low fat diabetic diet on discharge. Lipase on discharge: 30 Triglycerides on discharge: 412 During his hospitalization, 1/ blood cultures came back positive with tsang- sensative Pseudomonas Stutzeri. Unknown source. There was no evidence of obvious infection. Possibly translocation from GI tract vs possible skin contaminant. Discussed with Dr. Lang, infectious disease who recommended 10 day course of Levaquin (end date: 11/08/23). White count has been improving daily. WBC on discharge: 14.40. Advised follow up with PCP and repeat blood work in ~1 week to ensure resolution of leukocytosis. Medications: Levaquin for 6 more days (end date: 11/08/23) norco 5/325 10 pills as needed for pain Advised to resume home lantus on discharge at 15units. Check glucose levels around the same time each day before and after meals. If glucose is consistently > 200, can increase by 4units the following day until more consistently ~150. Follow up with PCP to further discuss possible alternative options to lower risk of recurrent episode once this acute pancreatitis episode resolves. Follow up: PCP 3-5 days Please call to schedule / confirm appointments Physical Exam: GEN: Alert, oriented HEENT: Normal conjunctiva, sclera anicteric CV: Regular rate and rhythm with occasional sinus tachycardia, no edema Pulm: Non-labored respirations on room air ABD: Soft, minimal tenderness in epigastrium Vital Signs/Physical Exam: Temp Pulse Resp BP Pulse Ox 97.3 F 96 H 16 139/81 95 11/03/23 08:00 11/03/23 08:00 11/03/23 08:00 11/03/23 08:00 11/03/23 08:00 Laboratory Data at Discharge: WBC 14.40 thou/uL (4.3-10.9) H 11/03/23 07:01 Hgb 11.7 g/dL (13.6-17.9) L 11/03/23 07:01 Hct 36.5 % (39.6-49.0) L 11/03/23 07:01 Plt Count 326 thou/uL (152-406) 11/03/23 07:01 PT 11.6 SECONDS (9.4-12.5) 10/27/23 21:31 INR 1.04 10/27/23 21:31 APTT 42.8 SECONDS (24.3-36.9) H 10/27/23 21:31 Sodium 135 mEq/L (136-145) L 11/03/23 07:01 Potassium 3.5 mEq/L (3.5-5.1) 11/03/23 07:01 BUN 5 mg/dL (7-18) L 11/03/23 07:01 Creatinine 0.50 mg/dL (0.70-1.30) L 11/03/23 07:01 Glucose 191 mg/dL (74-106) H 11/03/23 07:01 Phosphorus 1.6 mg/dL (2.5-4.9) L 10/31/23 05:45 Magnesium 1.8 mg/dL (1.6-2.4) 11/03/23 07:01 Total Bilirubin 0.4 mg/dL (0.2-1.0) 11/03/23 07:01 AST 17 U/L (15-37) 11/03/23 07:01 ALT 23 U/L (16-61) 11/03/23 07:01 Alkaline Phosphatase 126 U/L (45-117) H 11/03/23 07:01 Triglycerides 412 mg/dL (<150) H 11/03/23 07:01 Cholesterol 120 mg/dL (<200) 10/27/23 19:17 LDL Cholesterol Direct 31 mg/dL (100-129) L 10/27/23 19:17 HDL Cholesterol 18 mg/dL (40-60) L 10/27/23 19:17 Cholesterol/HDL Ratio 6.67 10/27/23 19:17 Lipase 30 U/L (13-75) 11/03/23 07:01 Home Medications: Levothyroxine [Synthroid*] 88 mcg PO DAILY #30 tab 08/02/22 gemfibroziL [Lopid*] 600 mg PO BID #60 tab 08/02/22 Empagliflozin [Jardiance] 25 mg PO DAILY 10/28/23 Gabapentin 300 mg PO BEDTIME 10/28/23 Insulin Glargine,Hum.rec.anlog [Lantus Solostar] 25 unit SQ BID 10/28/23 Insulin Regular, Human [Novolin R Flexpen] 12 units SQ TID 10/28/23 Hydrocodone 5/APAP 325 [[place] 5/325*] 1 tab PO Q6H PRN #10 tab 11/03/23 levoFLOXacin [Levaquin] 750 mg PO DAILY 6 Days #6 tab 11/03/23 New Medications: levoFLOXacin [Levaquin] 750 mg PO DAILY 6 Days #6 tab Hydrocodone 5/APAP 325 [[place] 5/325*] 1 tab PO Q6H PRN #10 tab PRN Reason: Pain Scale 5-7 (Moderate) Physician Discharge Instructions: Physician discharge instructions: Patient presented with sharp epigastric abdominal pain, nausea with vomiting. Labwork in ED with elevated lipase 1597, Triglycerides 650, consistent with Hypertriglyceridemia induced acute pancreatitis. Patient reported similar symptoms to prior episodes. CT abdomen on admission noted moderate inflammation surrounding pancreatic tail and mild diffuse fatty liver. Patient was given IV fluids in ED and started on an insulin drip and had improvement of his symptoms. Insulin drip was transitioned to subq 11/01 and IVF were discontinued once triglycerides were < 500. Diet was slowly advanced and patient continued to improve daily. Patient was feeling better, abdominal pain improving and more tolerable on oral pain medication, nausea/vomiting resolved, afebrile throughout hospitalization, and was deemed stable for discharge. Patient able to tolerate regular low fat diet on day of discharge without issues. Recommend low fat diabetic diet on discharge. Lipase on discharge: 30 Triglycerides on discharge: 412 During his hospitalization, 03/09 blood cultures came back positive with tsang- sensative Pseudomonas Stutzeri. Unknown source. There was no evidence of obvious infection. Possibly translocation from GI tract vs possible skin contaminant. Discussed with Dr. Lang, infectious disease who recommended 10 day course of Levaquin (end date: 11/08/23). White count has been improving daily. WBC on discharge: 14.40. Advised follow up with PCP and repeat blood work in ~1 week to ensure resolution of leukocytosis. Medications: Levaquin for 6 more days (end date: 11/08/23) norco 5/325 10 pills as needed for pain Advised to resume home lantus on discharge at 15units. Check glucose levels around the same time each day before and after meals. If glucose is consistently > 200, can increase by 4units the following day until more consistently ~150. Follow up with PCP to further discuss possible alternative options to lower risk of recurrent episode once this acute pancreatitis episode resolves. Follow up: PCP 3-5 days Please call to schedule / confirm appointments Followup: RAOUL NGUYEN [Primary Care Provider] - Time spent managing pt's care (in minutes): 45
== END 2023-11-03 10:59 | disposition home or self-care (01) | DRG 439 ==
LOC: ER 18:25 → ERHOLD 23:58 → 2ND 10-28 02:05 → 3RD-ICU 10-29 10:47 → 4TH 11-02 15:37
PROVIDERS: ADMIT Family Medicine; ATTEND Hospitalist
PROC: 02HV33Z Insertion of Infusion Device into Superior Vena Cava, Percutaneous Approach (ICD-10-PCS; principal; 2023-10-29)
DX: K85.90 Acute pancreatitis without necrosis or infection, unspecified (principal); R78.81 Bacteremia; Z68.42 Body mass index [BMI] 45.0-49.9, adult; E66.01 Morbid (severe) obesity due to excess calories; I10 Essential (primary) hypertension; E03.9 Hypothyroidism, unspecified; E11.65 Type 2 diabetes mellitus with hyperglycemia; K86.1 Other chronic pancreatitis; E78.00 Pure hypercholesterolemia, unspecified; B96.5 Pseudomonas (aeruginosa) (mallei) (pseudomallei) as the cause of diseases classified elsewhere; T38.3X6A Underdosing of insulin and oral hypoglycemic [antidiabetic] drugs, initial encounter; Z79.4 Long term (current) use of insulin; Z79.890 Hormone replacement therapy; Z79.899 Other long term (current) drug therapy; Z91.148 Patient's other noncompliance with medication regimen for other reason; Z91.138 Patient's unintentional underdosing of medication regimen for other reason
CPT/HCPCS: 36415; 74177; 80048; 80053; 80061; 81001; 82947; 83605; 83690; 83735; 84100; 84132; 84478; 85025; 85610; 85730; 87040; 87077; 87186; 87205; 94760; 96361; 96374; 96375; 99285; J0612; J0696; J1170; J1650; J2270; J2405; J3475; J7030; J7042; J7120; Q9967

== ENCOUNTER 2024-03-14 18:47 | Emergency (ER) | payer SELFPAY ==
--- NOTE | 2024-03-14 20:04 | RAD REPORT ---
EXAM: CT brain without contrast HISTORY: right facial droop;Numbness COMPARISON: None TECHNIQUE: Multiple contiguous axial images were obtained and a CT of the brain without contrast. Sag ittal and coronal reformats were performed. One or more of the following dose reduction techniques were used: Automated exposure control, adjust ment of the mA and/or kV according to patient size, and/or iterative reconstruction. FINDINGS: No evidence of hydrocephalus, intracranial hemorrhage, or extra-axial fluid collection. The brain is normal in morphology. No evidence of midline shift or areas of brain edema. The calvarium is intact. The visualized paranasal sinuses and mastoid air cells are essentially clear . IMPRESSION: No evidence of acute intracranial abnormality.
--- NOTE | 2024-03-14 20:45 | EDPHYS ---
Physician Documentation [facility] Name: Vijay Law Age: 28 yrs Sex: Male : 1995 Arrival Date: 03/14/2024 Time: 18:47 Bed 4 Private MD: ED Physician Bryson Steiner HPI: 03/14 20:30 This 28 yrs old Male presents to ER via Ambulatory with complaints of Facial cp Droop, Numbness Of Face. 20:30 The patient presents to the emergency department with paresthesias of the right side of cp the face, right side facial droop. 20:30 Onset: The symptoms/episode began/occurred few days ago. cp 20:30 Context: reports right side facial droop, weakness of right side of face, discomfort of cp right eye, difficulty closing right eyelid, loss of taste. Associated signs and symptoms: Pertinent negatives: altered mental status, dizziness, fever, headache, blurred vision, loss of vision. Severity of symptoms: in the emergency department the symptoms are unchanged despite home interventions. Patient's baseline: Neuro: alert and fully oriented, Motor: no deficits, Ambulation: walks without assistance, Speech: normal. Historical: - PMHx: 19:02 MIRIAM; diabetes mellitus; Hypertension; Hypothyroidism; Pancreatitis; ap3 - PSHx: 19:02 dialysis cath placements; removed; ap3 - Immunization history:: Client reports having NOT received the Covid vaccine. Flu vaccine is not up to date. - Infectious Disease History:: Denies. - Social history:: Smoking status: Patient denies any tobacco usage or history of. ROS: 20:35 Constitutional: Negative for body aches, chills, fever, cp 20:35 Constitutional: history per hpi cp 20:35 All other systems are negative, Exam: 20:40 Constitutional: The patient appears in no acute distress, alert, awake, cp non-diaphoretic, non-toxic, well developed, well nourished, obese, 20:40 Head/face: Noted is mild right side facial droop with mild drooping of right upper cp eyelid and right corner of mouth, mild smoothing of right side of forehead and right nasolabial folds. 20:40 Eyes: Pupils: equal, round, and reactive to light and accomodation, Extraocular movements: intact throughout, Conjunctiva: normal, no exudate, no injection, Sclera: no appreciated abnormality, Visual mike: are intact, 20:40 ENT: External ear(s): are unremarkable, Ear canal(s): are normal, clear, TM's: dullness, bilaterally, Mouth: Lips: moist, Oral mucosa: moist, Posterior pharynx: Airway: no evidence of obstruction, patent, 20:40 Neck: ROM/movement: is normal, is supple, without pain, no range of motions limitations, 20:40 Chest/axilla: Inspection: normal, 20:40 Cardiovascular: Rate: tachycardic, Rhythm: regular, 20:40 Respiratory: the patient does not display signs of respiratory distress, Respirations: normal, no use of accessory muscles, no retractions, labored breathing, is not present, Breath sounds: are clear throughout, no decreased breath sounds, 20:40 Neuro: Orientation: to person, place \T\ time. Mentation: is normal, Motor: moves all fours, strength is normal, Sensation: light touch is decreased in the right side of face, Vital Signs: 19:00 BP 149 / 101; Pulse 112; Resp 17; Temp 98.3(O); Pulse Ox 96% on R/A; Weight 145.15 kg; ap3 Pain 9/10; 19:00 BP 159 / 98; Pulse 115; Resp 16; Pulse Ox 95% on R/A; al5 19:10 BP 142 / 86; Pulse 96; Resp 17; Pulse Ox 95% on R/A; al5 19:20 BP 140 / 93; Pulse 104; Resp 16; Pulse Ox 95% on R/A; al5 19:30 BP 144 / 90; Pulse 101; Resp 16; Pulse Ox 95% on R/A; al5 19:40 BP 142 / 92; Pulse 97; Resp 18; Pulse Ox 97% on R/A; al5 19:50 BP 138 / 88; Pulse 96; Resp 17; Pulse Ox 98% on R/A; al5 20:00 BP 141 / 87; Pulse 94; Resp 17; Pulse Ox 97% on R/A; al5 20:30 BP 140 / 99; Pulse 92; Resp 17; Pulse Ox 98% on R/A; al5 19:00 Pain Scale: Adult ap3 NIH Stroke Scale Scores: 19:31 NIHSS Score: 0 al5 MDM: 19:18 Medical Screening Exam initiated cp 20:44 Data reviewed: vital signs, nurses notes, radiologic studies, CT scan, and as a result, cp I will discharge patient. 20:44 Care significantly affected by the following chronic conditions: Diabetes, cp Hypertension. Counseling: I had a detailed discussion with the patient and/or guardian regarding the historical points, exam findings, and any diagnostic results supporting the discharge/admit diagnosis, radiology results, the need for outpatient follow up, a family practitioner, to return to the emergency department if symptoms worsen or persist or if there are any questions or concerns that arise at home. 03/14 20:26 Order name: Glucose, Ancillary Testing; Complete Time: 20:27 EDMS 03/14 19:36 Order name: CT Head Brain wo Cont; Complete Time: 20:27 cp 03/14 20:28 Interpretation: Reviewed. cp Administered Medications: No medications were administered Point of Care Testing: Blood Glucose: 20:19 Blood Glucose: 223 mg/dL; al5 Ranges: Critical Glucose Levels:Adult <50 mg/dl or >400 mg/dl <40 mg/dl or >180 mg/dl Disposition: 03/15 05:33 Co-signature as Attending Physician, Bryson Steiner MD I agree with the assessment sp4 and plan of care. I reviewed the patient's care provided by the Advanced Practice Provider and agree with the diagnosis and treatment plan. 19:51 Chart complete. cp Disposition Summary: 03/14/24 20:44 Discharge Ordered Notes: Location: Home cp Problem: new cp Symptoms: are unchanged cp Condition: Stable cp Diagnosis - Kilpatrick's palsy cp Followup: cp - With: Private Physician - When: 2 - 3 days - Reason: Recheck today's complaints Discharge Instructions: - Discharge Summary Sheet cp - Kilpatrick's Palsy, Adult cp Forms: - Medication Reconciliation Form cp - Antibiotic Education cp - Prescription Opioid Use cp - Patient Portal Instructions cp - Leadership Thank You Letter cp Prescriptions: - Valtrex 1 gram Oral tablet - take 1 tablet ORAL route every 8 hours for 7 days; 21 tablet; Refills: 0, cp Product Selection Permitted - Prednisone 20 mg Oral tablet - take 3 tablets ORAL route once daily for 7 days; 21 tablet; Refills: 0, Product cp Selection Permitted NIH Stroke Scale - NIH Stroke Score Date: 03/14/2024 Time: 19:31 Total Score = 0 10. Dysarthria (speech clarity - read or repeat words) - 0(Normal) 11. Extinction and Inattention (visual/tactile/auditory/spatial/personal) - 0(No abnormality) 1a. Level of Consciousness (LOC) - 0(Alert) 1b. Level of Consciousness (LOC) (Month \T\ Age) - 0(Both) 1c. LOC Commands (Open \T\ Closes Eyes/Field Professional) - 0(Both) 2. Best Gaze (Lateral Gaze Paresis) - 0(Normal) 3. Visual Field Loss - 0(No visual loss) 4. Facial Palsy - 0(Normal) 5a. Left Arm: Motor (10-second hold) - 0(No drift) 5b. Right Arm: Motor (10-second hold) - 0(No drift) 6a. Left Leg: Motor (5-second hold - always test supine) - 0(No drift) 6b. Right Leg: Motor (5-second hold - always test supine) - 0(No drift) 7. Limb Ataxia (finger/nose \T\ heel/rivera - test with eyes open) - 0(Absent) 8. Sensory Loss (pinprick arms/legs/face) - 0(Normal) 9. Best Language: Aphasia (description/naming/reading) - 0(No aphasia) Initials: al5 Signatures: Dispatcher [employer] EDLA Toney Ball PA PA cp Prokisch, Amanda, CECY RN ap3 Bryson Steiner MD MD sp4 Tamika Paniagua RN RN al5 Corrections: (The following items were deleted from the chart) 03/14 19:36 19:36 Head Brain Wo [id number].RAD.BRZ ordered. EDLA EDMS 03/15 19:43 03/14 20:30 Context: reports right side facial droop, weakness of right side of cp face, discomfort of right eye, cp 03/15 19:51 03/14 20:30 Context: reports right side facial droop, weakness of right side of cp face, discomfort of right eye, difficulty closing right eyelid, cp
--- NOTE | 2024-03-14 20:45 | ER ---
Nurse's Notes [facility] Name: Vijay Law Age: 28 yrs Sex: Male : 1995 Arrival Date: 03/14/2024 Time: 18:47 Bed 4 Private MD: Diagnosis: Kilpatrick's palsy Presentation: 03/14 19:00 Chief complaint: Patient states: he has been having right sided facial numbness and ap3 drooping for a few days. patient also reports that during this time he started biting his lip, things have started tasting different and he noticed his right eye was "blinking slower" patient reports right eye pressure that he rates is a 9/10. Coronavirus screen: At this time, the client does not indicate any symptoms associated with coronavirus-19. Ebola Screen: No symptoms or risks identified at this time. No acute neurological deficit is noted. Initial Sepsis Screen: Does the patient meet any 2 criteria? HR > 90 bpm. Does the patient have a suspected source of infection? No. Patient's initial sepsis screen is negative. Risk Assessment: Do you want to hurt yourself or someone else? Patient reports no desire to harm self or others. Onset of symptoms is unknown. 19:00 Method Of Arrival: Ambulatory ap3 19:00 Acuity: SUYAPA 3 ap3 19:08 Pre-hospital glucose is not applicable to this patient. al5 Triage Assessment: 19:02 The onset of the patients symptoms was more than six hours ago. General: Appears in no ap3 apparent distress. Behavior is calm, cooperative, appropriate for age. Pain: Complains of pain in right eye Pain currently is 9 out of 10 on a pain scale. Neuro: Level of Consciousness is awake, alert, obeys commands, Oriented to person, place, time, situation, Appropriate for age Reports slower blinking to right eye, right side facial numbing, right sided mouth drooping. Cardiovascular: Patient's skin is warm and dry. Respiratory: Airway is patent Respiratory effort is even, unlabored, Respiratory pattern is regular, symmetrical. 19:58 The onset of the patients symptoms was March 11, 2024 at 12:00. al5 Stroke Activation: Physician: ED Attending; Name: ; Notified At: ; Arrived At: Physician: Mid-Level Provider; Name: ; Notified At: ; Arrived At: Physician: [not used]; Name: ; Notified At: ; Arrived At: Physician: [not used]; Name: ; Notified At: ; Arrived At: Physician: [not used]; Name: ; Notified At: ; Arrived At: 19:08 n/a al5 Historical: - PMHx: 19:02 MIRIAM; diabetes mellitus; Hypertension; Hypothyroidism; Pancreatitis; ap3 - PSHx: 19:02 dialysis cath placements; removed; ap3 - Immunization history:: Client reports having NOT received the Covid vaccine. Flu vaccine is not up to date. - Infectious Disease History:: Denies. - Social history:: Smoking status: Patient denies any tobacco usage or history of. Screenin:34 [facility] ED Fall Risk Assessment (Adult) History of falling in the last 3 months, al5 including since admission No falls in past 3 months (0 pts) Confusion or Disorientation No (0 pts) Intoxicated or Sedated No (0 pts) Impaired Gait No (0 pts) Mobility Assist Device Used No (0 pt) Altered Elimination No (0 pt) Score/Fall Risk Level 0 - 2 = Low Risk Oriented to surroundings, Maintained a safe environment, Hourly rounding (assess needs \\T\\ fall precautionary measures) done. Abuse screen: Denies threats or abuse. Denies injuries from another. Nutritional screening: No deficits noted. Tuberculosis screening: No symptoms or risk factors identified. Assessment: 19:31 VAN Scoring: Arm Drift: Patients demonstrates NO arm weakness. Patient is VAN Negative. al5 Visual Disturbance: No visual disturbance noted. Aphasia: No aphasia noted. Neglect: No neglect noted. [place] Swallow Protocol Exclusion Criteria: Exclusion Criteria Result: Proceed Brief Cognitive Screen What is your name? Normal, Where are you right now? Normal, What year is it? Normal. Oral Mechanism Examination Facial Symmetry: Normal, Motion: Normal, Lip Closure: Normal, Oral Mechanism Result: Normal. 3 oz Water Swallow Challenge: Pt able to drink all water without stopping, coughing, choking or throat clearing: Yes Result: PASS Notified: Toney VILLELA. TNKase (Tenecteplase) Screening: Not Applicable. General: Appears in no apparent distress. comfortable, well groomed, Behavior is calm, cooperative. Pain: Complains of pain in right eye. Neuro: Level of Consciousness is awake, alert, obeys commands, Oriented to person, place, time, situation, Speech is normal, Facial symmetry appears normal, Reports numbness right side of his face for past 2-3 days and right eye pressure. Cardiovascular: Capillary refill < 3 seconds Patient's skin is warm and dry. Respiratory: Airway is patent Respiratory effort is even, unlabored, Respiratory pattern is regular, symmetrical. GI: No signs and/or symptoms were reported involving the gastrointestinal system. : No signs and/or symptoms were reported regarding the genitourinary system. EENT: No signs and/or symptoms were reported regarding the EENT system. Derm: Skin is intact, is healthy with good turgor, Skin is pink, warm \\T\\ dry. normal. Musculoskeletal: No signs and/or symptoms reported regarding the musculoskeletal system. 20:47 Reassessment: Patient appears in no apparent distress at this time. No changes from al5 previously documented assessment. Patient and/or family updated on plan of care and expected duration. Pain level reassessed. Patient is alert, oriented x 3, equal unlabored respirations, skin warm/dry/pink. Vital Signs: 19:00 BP 149 / 101; Pulse 112; Resp 17; Temp 98.3(O); Pulse Ox 96% on R/A; Weight 145.15 kg; ap3 Pain 9/10; 19:00 BP 159 / 98; Pulse 115; Resp 16; Pulse Ox 95% on R/A; al5 19:10 BP 142 / 86; Pulse 96; Resp 17; Pulse Ox 95% on R/A; al5 19:20 BP 140 / 93; Pulse 104; Resp 16; Pulse Ox 95% on R/A; al5 19:30 BP 144 / 90; Pulse 101; Resp 16; Pulse Ox 95% on R/A; al5 19:40 BP 142 / 92; Pulse 97; Resp 18; Pulse Ox 97% on R/A; al5 19:50 BP 138 / 88; Pulse 96; Resp 17; Pulse Ox 98% on R/A; al5 20:00 BP 141 / 87; Pulse 94; Resp 17; Pulse Ox 97% on R/A; al5 20:30 BP 140 / 99; Pulse 92; Resp 17; Pulse Ox 98% on R/A; al5 19:00 Pain Scale: Adult ap3 NIH Stroke Scale Scores: 19:31 NIHSS Score: 0 al5 ED Course: 18:51 Patient arrived in ED. sj2 18:57 Jose Krishnan, RN is Primary Nurse. bp 19:00 Arm band placed on right wrist. Patient placed in the treatment room, on a stretcher. al5 19:02 Triage completed. ap3 19:18 Toney Ball PA is PHCP. cp 19:18 Chana Méndez MD is Attending Physician. cp 19:31 Primary Nurse role handed off by Jose Krishnan, CECY al5 19:31 Tamika Paniagua, CECY is Primary Nurse. al5 19:35 Patient has correct armband on for positive identification. Bed in low position. Call al5 light in reach. Side rails up X 1. Provided Education on: plan of care. 19:35 No provider procedures requiring assistance completed. al5 19:49 CT Head Brain wo Cont In Process Unspecified. EDMS 20:22 Bryson Steiner MD is Attending Physician. cp 20:58 Patient did not have IV access during this emergency room visit. al5 Administered Medications: No medications were administered Medication: 19:34 VIS not applicable for this client. al5 Point of Care Testing: Blood Glucose: 20:19 Blood Glucose: 223 mg/dL; al5 Ranges: Outcome: 20:44 Discharge ordered by . cp 20:58 Discharged to home ambulatory, al5 20:58 Condition: good 20:58 Discharge instructions given to patient, Instructed on discharge instructions, follow up and referral plans. medication usage, Demonstrated understanding of instructions, follow-up care, medications, 20:58 Patient left the ED. al5 NIH Stroke Scale - NIH Stroke Score Date: 03/14/2024 Time: 19:31 Total Score = 0 10. Dysarthria (speech clarity - read or repeat words) - 0(Normal) 11. Extinction and Inattention (visual/tactile/auditory/spatial/personal) - 0(No abnormality) 1a. Level of Consciousness (LOC) - 0(Alert) 1b. Level of Consciousness (LOC) (Month \\T\\ Age) - 0(Both) 1c. LOC Commands (Open \\T\\ Closes Eyes/Department Operations Manager) - 0(Both) 2. Best Gaze (Lateral Gaze Paresis) - 0(Normal) 3. Visual Field Loss - 0(No visual loss) 4. Facial Palsy - 0(Normal) 5a. Left Arm: Motor (10-second hold) - 0(No drift) 5b. Right Arm: Motor (10-second hold) - 0(No drift) 6a. Left Leg: Motor (5-second hold - always test supine) - 0(No drift) 6b. Right Leg: Motor (5-second hold - always test supine) - 0(No drift) 7. Limb Ataxia (finger/nose \\T\\ heel/rivera - test with eyes open) - 0(Absent) 8. Sensory Loss (pinprick arms/legs/face) - 0(Normal) 9. Best Language: Aphasia (description/naming/reading) - 0(No aphasia) Initials: al5 Signatures: Dispatcher [employer] EDMS Toney Ball PA PA cp Peltier, Brian, RN RN bp Tamika Mckeon RN RN ap3 Tamika Paniagua RN RN al5 Lelo, Huan sj2
== END 2024-03-14 20:58 | disposition home or self-care (01) ==
LOC: ER 18:47
DX: G51.0 Bell's palsy (principal)
CPT/HCPCS: 70450; 82947; 99284

== ENCOUNTER 2024-10-12 12:35 | Inpatient (IN) | payer SELFPAY ==
[2024-10-12] MEDS ORDERED: ONDANSETRON 4 MG/2 ML VIAL ONE ×2 (13:49→16:07)
[2024-10-12] MEDS ORDERED: MORPHINE 4 MG/ML SYR ONE ×2 (13:49→16:07)
[2024-10-12] MEDS ORDERED: NA CHLORIDE 0.9% 1,000 ML ONE (13:50)
[2024-10-12 14:09] LABS: Absolute Lymphocytes (CBC) 3.5 K/uL (0.7-4.9); Hematocrit 43.6 % (39.6-49.0); Hemoglobin 15.6 g/dL (13.6-17.9); MCH 26.4 pg (27.0-35.0); MCHC 35.7 g/dL (32.0-36.0); MCV 73.8 fL (80-100); MPV 10.4 fL (7.6-11.3); Nucleated RBC Absolute Count 0.1 (0-0); Nucleated Red Blood Cells % 0.3 % (0-0); RBC Red Blood Cell Count 5.91 M/uL (4.33-5.43); White Blood Count 14.30 thou/uL (4.3-10.9)
[2024-10-12 15:17] LABS: Albumin 2.8 g/dL (3.4-5.0); Albumin/Globulin Ratio 0.6 (1.1-1.8); Alkaline Phosphatase 122.0 U/L (45-117); Anion Gap 11.4 mEq/L (5.0-15.0); BUN Blood Urea Nitrogen 13.0 mg/dL (7-18); Globulin 4.5 g/dL (2.3-3.5); Lipase 3937.0 U/L (13-75)
--- NOTE | 2024-10-12 15:17 | RAD REPORT ---
EXAMINATION: ONE VIEW CHEST XR CLINICAL INDICATION: Male, 29 years old.,DYSPNEA TECHNIQUE: Frontal chest projection is submitted. Examination is limited by patient positioning and t echnique. COMPARISON: 07/28/2022 FINDINGS: The lungs are grossly clear although suboptimal inspiratory effort and elevation of the right hemidia phragm somewhat limit evaluation. No pneumothorax or sizable effusion. The heart is normal in size. Mediastinal contours are unremarkable. IMPRESSION: No acute intrathoracic abnormalities.
[2024-10-12 15:31] LABS: Potassium 5.4 mEq/L (3.5-5.1)
[2024-10-12 15:39] LABS: Glucose Level 445.0 mg/dL (74-106)
[2024-10-12 16:34] LABS: Blood Morphology Comment NOT SEEN (NOT SEEN); White Blood Cell Scan OK (OK)
--- NOTE | 2024-10-12 17:07 | RAD REPORT ---
EXAMINATION: CT Abdomen Pelvis W Contrast CLINICAL INDICATION: Male, 29 years old. ABD PAIN TECHNIQUE: CT abdomen and pelvis was performed, after the administration of IV contrast, [facility]. Axial, sagittal and coronal reconstructions were obtained. One or more of the following dose reduction techniques were used: Automated exposure control, adjustment of the mA and k V according to patient size, and iterative reconstruction. Unless otherwise specified, incidental findings do not require dedicated imaging follow-up. COMPARISON: 10/27/2023. FINDINGS: LOWER CHEST: The visualized lung bases are clear. LIVER: Significant fatty liver with hepatomegaly present. No focal lesion or biliary dilitation. BILIARY SYSTEM: No suspicious abnormalities. SPLEEN: Normal size. No focal lesion. PANCREAS: Diffuse inflammatory changes with swelling throughout the pancreatic tissue most pronounced along the body. No discrete mass, ductal dilation, or fluid collection. ADRENALS: Normal; no mass. KIDNEYS: Normal size and contour. No hydronephrosis. URINARY BLADDER: Unremarkable. GASTROINTESTINAL TRACT: No evidence of free air, significant intra-abdominal free fluid, bowel obstru ction or abscess. APPENDIX: Normal appendix. LYMPH NODES: No lymphadenopathy. MUSCULOSKELETAL: No acute or suspicious osseous abnormality. ADDITIONAL FINDINGS: None. IMPRESSION: Diffuse inflammatory changes throughout the pancreas compatible with acute interstitial pancreatitis, without evidence of complications.
--- NOTE | 2024-10-12 17:24 | ER ---
Nurse's Notes [facility] Name: Vijay Law Age: 29 yrs Sex: Male : 1995 Arrival Date: 10/12/2024 Time: 12:35 Bed 14 Private MD: Diagnosis: Acute pancreatitis without necrosis or infection, unspecified Presentation: 10/12 13:11 Chief complaint: Patient states: Severe abdominal pain with N/V, SOB started today. ll1 Coronavirus screen: Client denies travel out of the [place] in the last 14 days. nausea, vomiting. Client presents with at least one sign or symptom that may indicate coronavirus-19. Standard/surgical mask placed on the client. Ebola Screen: Patient denies travel to an Ebola-affected area in the 21 days before illness onset. Initial Sepsis Screen: Does the patient meet any 2 criteria? No. Patient's initial sepsis screen is negative. Does the patient have a suspected source of infection? No. Patient's initial sepsis screen is negative. Risk Assessment: Do you want to hurt yourself or someone else? Patient reports no desire to harm self or others. Onset of symptoms was October 12, 2024. 13:11 Method Of Arrival: Ambulatory ll1 13:11 Acuity: SUYAPA 3 ll1 Historical: - Allergies: 13:11 No Known Allergies; ll1 - PMHx: 13:11 Pancreatitis; Hypothyroidism; Hypertension; diabetes mellitus; MIRIAM; ll1 - PSHx: 13:11 dialysis cath placements; removed; ll1 - Immunization history:: Adult Immunizations up to date. - Social history:: Smoking status: . Screenin:27 [facility] ED Fall Risk Assessment (Adult) History of falling in the last 3 months, kj2 including since admission No falls in past 3 months (0 pts) Confusion or Disorientation No (0 pts) Intoxicated or Sedated No (0 pts) Impaired Gait No (0 pts) Mobility Assist Device Used No (0 pt) Altered Elimination No (0 pt) Score/Fall Risk Level 0 - 2 = Low Risk Maintained a safe environment, Hourly rounding (assess needs \T\ fall precautionary measures) done. Abuse screen: Denies threats or abuse. Denies injuries from another. Nutritional screening: No deficits noted. Tuberculosis screening: No symptoms or risk factors identified. Assessment: 13:25 General: Appears in no apparent distress. Behavior is cooperative. Pain: Complains of kj2 pain in abdomen Pain currently is 6 out of 10 on a pain scale. Neuro: Level of Consciousness is awake, alert, obeys commands, Oriented to person, place, time, situation. Cardiovascular: Patient's skin is warm and dry. Respiratory: Airway is patent Respiratory effort is unlabored. GI: Abdomen is tender to palpation X 4 quads. : No signs and/or symptoms were reported regarding the genitourinary system. 14:39 Reassessment: Patient appears in no apparent distress at this time. Patient and/or kj2 family updated on plan of care and expected duration. Pain level reassessed. Patient is alert, oriented x 3, equal unlabored respirations, skin warm/dry/pink. 15:40 Reassessment: Patient appears in no apparent distress at this time. Patient and/or kj2 family updated on plan of care and expected duration. Pain level reassessed. Patient is alert, oriented x 3, equal unlabored respirations, skin warm/dry/pink. 17:01 Reassessment: Patient appears in no apparent distress at this time. Patient and/or kj2 family updated on plan of care and expected duration. Pain level reassessed. Patient is alert, oriented x 3, equal unlabored respirations, skin warm/dry/pink. Vital Signs: 13:11 BP 163 / 102; Pulse 109; Resp 20; Temp 97.3; Pulse Ox 100% ; Weight 146.96 kg; Height 5 ll1 ft. 10 in. ; Pain 10/10; 15:40 BP 139 / 95; Pulse 98; Resp 20; Pulse Ox 100% on R/A; kj2 17:01 BP 153 / 107; Pulse 105; Resp 20; kj2 13:11 Body Mass Index 46.49 (146.96 kg, 177.8 cm) ll1 13:11 Pain Scale: Adult ll1 ED Course: 12:38 Patient arrived in ED. cj3 13:13 Triage completed. ll1 13:13 Arm band placed on Patient placed in an exam room, on a stretcher. ll1 13:18 Shivani Mendez, RN is Primary Nurse. kj2 13:19 Marcel Garvin is Attending Physician. ci 13:27 Patient has correct armband on for positive identification. Side rails up X 1. Provided kj2 Education on: call light. 13:55 Initial lab(s) drawn, by me, sent to lab. Inserted saline lock: 20 gauge in left em1 forearm, using aseptic technique. Blood collected. Flushed with 10 mL NS. 13:55 CBC with Diff Sent. em1 13:55 CMP Sent. em1 13:55 Lipase Sent. em1 14:50 XRAY CXR (1 view) In Process Unspecified. EDMS 16:22 CT Abd/Pelvis - IV Contrast Only In Process Unspecified. EDMS 17:23 Schuyler Link MD is Hospitalizing Provider. ci 19:02 Patient admitted, IV remains in place. jl7 Administered Medications: 14:04 Drug: Ondansetron IVP 4 mg IVP once; over 2 minutes Route: IVP; Site: left forearm; kj2 14:04 Drug: morphine IVP or IV 4 mg IVP once over 4 mins Route: IVP; Infused Over: 4 mins; kj2 Site: left forearm; 14:04 Drug: NS 0.9% IV 1000 ml IV at 1 bolus Per protocol; to be given as a bolus over 60 kj2 minutes Route: IV; Rate: 1 bolus; Site: left forearm; 15:04 Follow up: Response: No adverse reaction; IV Status: Completed infusion; IV Intake: jl7 1000ml 16:11 Drug: Ondansetron IVP 4 mg IVP once; over 2 minutes Route: IVP; Site: left forearm; kj2 18:09 Follow up: Response: No adverse reaction kj2 16:11 Drug: morphine IVP or IV 4 mg IVP once over 4 mins Route: IVP; Infused Over: 4 mins; kj2 Site: left forearm; 18:08 Follow up: Response: No adverse reaction kj2 17:53 Drug: NS 0.9% IV 1000 ml IV at 1000 ml once; to be given as a bolus over 60 minutes kj2 Route: IV; Rate: 1000 ml; Site: left forearm; 18:53 Follow up: IV Status: Completed infusion; IV Intake: 1000ml jl7 Medication: 19:03 VIS not applicable for this client. jl7 Intake: 15:04 IV: 1000ml; Total: 1000ml. jl7 18:53 IV: 1000ml; Total: 2000ml. jl7 Outcome: 17:23 Decision to Hospitalize by Provider. ci 19:02 Admitted to ICU accompanied by nurse, accompanied by tech, via stretcher, room 4, jl7 19:02 Condition: stable 19:02 Discharge instructions given to patient, Instructed on the need for admit, 19:03 Patient left the ED. jl7 Signatures: Dispatcher [employer] EDAndrews Hernandez em1 Jesus Hamlin, RN RN jl7 Neftali Duckworth RN RN ll1 Marcel Garvin Krystal, RN RN kj2 Marcella Brown 3 Corrections: (The following items were deleted from the chart) 13:14 13:11 Pulse 109bpm; Resp 20bpm; Pulse Ox 100%; Temp 97.3F; 146.96 kg; Height 5 ft. 10 ll1 in.; BMI: 46.4; Pain 10/10, Adult; ll1
--- NOTE | 2024-10-12 17:24 | EDPHYS ---
Physician Documentation [facility] Name: Vijay Law Age: 29 yrs Sex: Male : 1995 Arrival Date: 10/12/2024 Time: 12:35 Bed 14 Private MD: ED Physician Marcel Garvin HPI: 10/12 17:18 This 29 yrs old Male presents to ER via Ambulatory with complaints of ci Abdominal Pain, Breathing Difficulty. 17:18 Patient is a 29-year-old male with PMH pancreatitis, hypothyroidism, hypertension, ci diabetes who presents to the ED with chief complaint of generalized abdominal pain that began today. Pain is sharp, severe, rated 10/10, no aggravating or relieving factors. Associated with nausea/vomiting. No hematemesis or melena. Patient denies any abdominal surgeries. Pain feels like prior episodes of pancreatitis. Patient is supposed to be on Creon, has not taken in the past month because he ran out and did have his vehicle to get to his appointment for refill. Historical: - Allergies: 13:11 No Known Allergies; ll1 - PMHx: 13:11 Pancreatitis; Hypothyroidism; Hypertension; diabetes mellitus; MIRIAM; ll1 - PSHx: 13:11 dialysis cath placements; removed; ll1 - Immunization history:: Adult Immunizations up to date. - Social history:: Smoking status: . ROS: 17:18 Constitutional: Negative for fever, chills, and weight loss, Cardiovascular: Negative ci for chest pain, palpitations, and edema, 17:18 Abdomen/GI: Positive for abdominal pain, nausea and vomiting, 17:18 Respiratory: Positive for Endorses difficulty breathing due to abdominal pain, Negative ci for cough, dyspnea on exertion, hemoptysis, orthopnea, Exam: 17:18 Constitutional: This is an obese, well nourished patient who is awake, alert, and in ci no acute distress. Head/Face: Normocephalic, atraumatic. Eyes: Pupils equal round and reactive to light, extra-ocular motions intact. Lids and lashes normal. Conjunctiva and sclera are non-icteric and not injected. Cornea within normal limits. Periorbital areas with no swelling, redness, or edema. ENT: Nares patent. No nasal discharge, no septal abnormalities noted. Tympanic membranes are normal and external auditory canals are clear. Oropharynx with no redness, swelling, or masses, exudates, or evidence of obstruction, uvula midline. Mucous membranes moist. Cardiovascular: Regular rate and rhythm with a normal S1 and S2. No gallops, murmurs, or rubs. Normal PMI, no JVD. No pulse deficits. Respiratory: Lungs have equal breath sounds bilaterally, clear to auscultation and percussion. No rales, rhonchi or wheezes noted. No increased work of breathing, no retractions or nasal flaring. 17:18 Back: No spinal tenderness. No costovertebral tenderness. Full range of motion. Skin: Warm, dry with normal turgor. Normal color with no rashes, no lesions, and no evidence of cellulitis. Neuro: Awake and alert, GCS 15, oriented to person, place, time, and situation. Cranial nerves II-XII grossly intact. Motor strength 5/5 in all extremities. Sensory grossly intact. Cerebellar exam normal. Normal gait. 17:18 Abdomen/GI: Palpation: soft, moderate abdominal tenderness, in all quadrants, rebound tenderness, is not appreciated, voluntary guarding, is not appreciated, involuntary guarding, is not appreciated, Vital Signs: 13:11 BP 163 / 102; Pulse 109; Resp 20; Temp 97.3; Pulse Ox 100% ; Weight 146.96 kg; Height 5 ll1 ft. 10 in. ; Pain 10/10; 15:40 BP 139 / 95; Pulse 98; Resp 20; Pulse Ox 100% on R/A; kj2 17:01 BP 153 / 107; Pulse 105; Resp 20; kj2 13:11 Body Mass Index 46.49 (146.96 kg, 177.8 cm) ll1 13:11 Pain Scale: Adult ll1 MDM: 13:19 Medical Screening Exam initiated ci 17:18 Differential diagnosis: Pancreatitis, colitis, SBO, perforated viscus, gastritis, ci cholecystitis. Data reviewed: vital signs, nurses notes. ED course: Slight leukocytosis with WBC of 14, likely reactive. CT consistent with pancreatitis, lipase greater than 3000. Patient was hydrated IV fluids, given multiple doses of pain meds and antiemetic. Will admit for further management. Discussed with hospitalist who accepted patient for admission under 's service. 18:07 ED course: Patient has a known history of hypertriglyceridemia, plan for insulin drip, ci upgraded to ICU, lipid panel pending. 10/12 13:33 Order name: CBC with Diff; Complete Time: 17:16 ci 08/ 16:08 Interpretation: Abnormal: WBC 14.30. ci 08/ 13:33 Order name: CMP; Complete Time: 16:08 ci 08/ 16:09 Interpretation: NA 131; K 5.4. ci 08/ 13:33 Order name: Lipase; Complete Time: 16:08 ci 08/ 16:09 Interpretation: Abnormal: LIP 3937. ci 08/ 16:34 Order name: CBC Smear Scan; Complete Time: 17:16 EDMS 10/12 17:24 Order name: Lactate w/ 2H reflex if indic.; Complete Time: 18:38 ci 10/12 17:25 Order name: Lipid Profile EDMS 10/12 17:41 Order name: Basic Metabolic Panel EDMS 10/12 17:41 Order name: Basic Metabolic Panel EDMS 10/12 17:41 Order name: CBC with Automated Diff EDMS 10/12 17:41 Order name: CBC with Automated Diff EDMS 10/12 17:41 Order name: Magnesium EDMS / 17:41 Order name: Magnesium EDMS / 17:41 Order name: Phosphorus EDMS / 17:41 Order name: Phosphorus EDMS / 17:42 Order name: Lipase EDMS / 17:42 Order name: Lipase EDMS / 17:42 Order name: Lipase EDMS 10/12 17:42 Order name: Lipase EDMS / 17:42 Order name: Lipase EDMS / 17:42 Order name: Lipase EDMS / 17:42 Order name: Triglycerides Level EDMS / 17:42 Order name: Triglycerides Level EDMS 10/12 17:42 Order name: Triglycerides Level EDMS 10/12 17:42 Order name: Triglycerides Level EDMS 10/12 17:42 Order name: Triglycerides Level EDMS / 17:42 Order name: Triglycerides Level EDMS 10/12 17:45 Order name: Basic Metabolic Panel EDMS 10/12 17:45 Order name: Basic Metabolic Panel EDMS 10/12 17:45 Order name: Basic Metabolic Panel EDMS 10/12 17:45 Order name: Basic Metabolic Panel EDMS 10/12 17:45 Order name: Basic Metabolic Panel EDMS 10/12 17:45 Order name: Basic Metabolic Panel EDMS 10/12 17:45 Order name: Basic Metabolic Panel EDMS 10/12 17:45 Order name: Basic Metabolic Panel EDMS 10/12 17:45 Order name: Basic Metabolic Panel EDMS 10/12 17:45 Order name: Basic Metabolic Panel EDMS 10/12 17:45 Order name: Basic Metabolic Panel EDMS 10/12 17:51 Order name: Glucose, Ancillary Testing; Complete Time: 18:07 EDMS 10/12 13:33 Order name: CT Abd/Pelvis - IV Contrast Only; Complete Time: 17:16 ci 10/12 13:33 Order name: XRAY CXR (1 view); Complete Time: 16:08 ci 10/12 16:09 Interpretation: No acute disease. ci 10/12 13:33 Order name: IV Saline Lock; Complete Time: 14:04 ci 10/12 13:33 Order name: Labs collected and sent; Complete Time: 14:04 ci 10/12 14:20 Order name: Misc. Order: lab recollect light green top; Complete Time: 14:38 sp 10/12 17:26 Order name: Glucose Level; Complete Time: 17:41 ci Administered Medications: 14:04 Drug: Ondansetron IVP 4 mg IVP once; over 2 minutes Route: IVP; Site: left forearm; kj2 14:04 Drug: morphine IVP or IV 4 mg IVP once over 4 mins Route: IVP; Infused Over: 4 mins; kj2 Site: left forearm; 14:04 Drug: NS 0.9% IV 1000 ml IV at 1 bolus Per protocol; to be given as a bolus over 60 kj2 minutes Route: IV; Rate: 1 bolus; Site: left forearm; 15:04 Follow up: Response: No adverse reaction; IV Status: Completed infusion; IV Intake: jl7 1000ml 16:11 Drug: Ondansetron IVP 4 mg IVP once; over 2 minutes Route: IVP; Site: left forearm; kj2 18:09 Follow up: Response: No adverse reaction kj2 16:11 Drug: morphine IVP or IV 4 mg IVP once over 4 mins Route: IVP; Infused Over: 4 mins; kj2 Site: left forearm; 18:08 Follow up: Response: No adverse reaction kj2 17:53 Drug: NS 0.9% IV 1000 ml IV at 1000 ml once; to be given as a bolus over 60 minutes kj2 Route: IV; Rate: 1000 ml; Site: left forearm; 18:53 Follow up: IV Status: Completed infusion; IV Intake: 1000ml jl7 Disposition Summary: 10/12/24 17:23 Hospitalization Ordered Notes: Hospitalization Status: Inpatient Admission ci Provider: Schuyler Link Condition: Stable ci Problem: an acute exacerbation ci Symptoms: are unchanged ci Bed/Room Type: Standard ci Location: Intensive Care Unit(10/12/24 17:52) sp Room Assignment: 4-(10/12/24 17:52) sp Diagnosis - Acute pancreatitis without necrosis or infection, unspecified ci Forms: - Medication Reconciliation Form ci - SBAR form ci - Leadership Thank You Letter ci Signatures: Dispatcher [employer] EDMS Melvina Grande sp Neftali Duckworth RN RN ll1 Marcel Garvin ci Shivani Mendez RN RN kj2 Jesus Hamlin RN jl7 Corrections: (The following items were deleted from the chart) 13:34 13:34 Chest Single View+RAD.RAD.BRZ ordered. EDMS EDMS 17:52 17:23 Telemetry/MedSurg (Inpatient) ci sp 17:52 17:23 ci sp
[2024-10-12] MEDS ORDERED: D50W 25 GM/50 ML SYRINGE IV PRN ×2 (17:34)
[2024-10-12] MEDS ORDERED: GLUCAGON 1 MG/VIAL IV PRN (17:34)
[2024-10-12] MEDS ORDERED: GLUCAGON 1 MG/VIAL IM PRN (17:34)
[2024-10-12] MEDS ORDERED: D10W 125 ML IV PRN (17:57)
[2024-10-12] MEDS: NA CHLORIDE 0.9% 1,000 ML IV SCH (18:00)
--- NOTE | 2024-10-12 18:30 | P.HP ---
Certification for Inpatient Patient admitted to: Inpatient With expected LOS: >2 Midnights Patient will require the following post-hospital care: None Practitioner: I am a practitioner with admitting privileges, knowledge of patient current condition, hospital course, and medical plan of care. Services: Services provided to patient in accordance with Admission requirements found in Title 42 Section 412.3 of the Code of Federal Regulations <Love Cleveland - Last Filed: 10/13/24 06:51> Patient History Date of Service: 10/12/24 Reason for admission: Acute on chronic pancreatitis History of Present Illness: Vijay Law is a 29 year old male with pmhx pancreatitis, hypothyroidism, hypertension, DM , MIRIAM presents to the ED with chief complaint of epigastric pain. He reports not having his medications including fenofibrate, Creon, and insulin for approximately 1 month due to not having a car to black pickler medications or insurance to cover the medication. He reports recently being put on Creon which seems to have helped but he also reports pancreatitis episodes are about every year. Laboratory evaluation significant for WBC 14.3, sodium 131, potassium 5.4, serum glucose 445, lipase 3937. CT abdomen pelvis report "Diffuse inflammatory changes throughout the pancreas compatible with acute interstitial pancreatitis, without evidence of complications" Chest x-ray report "The lungs are grossly clear although suboptimal inspiratory effort and elevation of the right hemidiaphragm somewhat limit evaluation. No pneumothorax or sizable effusion. The heart is normal insize. Mediastinal contours are unremarkable." Vijay will be admitted to hospitalist service for further evaluation and treatment of acute on chronic pancreatitis - Past Medical/Surgical History Diabetic: Yes -: hypothyroid -: was hospitalized 02/2017 for hyperglycemia, quit taking insulin per his MD -: DM II -: obesity -: htn -: high cholesterol -: Hypertriglyceridemia/pancreatitis -: Acute renal failure requiring dialysis-recovered -: Dialysis catheter placement Psychosocial/ Personal History: Lives at home with family - Social History Smoking Status: Never smoker Alcohol use: No CD- Drugs: No Caffeine use: Yes <Love Cleveland - Last Filed: 10/13/24 06:51> Date of Service: 10/14/24 <Schuyler Link - Last Filed: 10/14/24 06:33> Allergies No Known Allergies Allergy (Verified 07/29/22 15:10) Home Medications: Gabapentin 300 mg PO BEDTIME 10/28/23 Insulin Glargine,Hum.rec.anlog [Lantus Solostar] 35 unit SQ DAILY 10/28/23 Insulin Regular, Human [Novolin R Flexpen] 18 units SQ TID 10/28/23 Fenofibrate [Tricor] 145 mg PO DAILY 10/13/24 Levothyroxine Sodium [Unithroid] 80 mcg PO DAILY 10/13/24 Lipase/Protease/Amylase [Leanna Dr 36,000 Units Capsule] 1 each PO DAILY 10/13/24 Ondansetron [Zofran] 8 mg PO DAILY 10/13/24 Review of Systems Other: per HPI <Love Cleveland - Last Filed: 10/13/24 06:51> Physical Examination - Physical Exam General: Alert, In no apparent distress, Oriented x3 HEENT: Atraumatic, Normocephalic Neck: Supple, JVD not distended Respiratory: Clear to auscultation bilaterally, Normal air movement Cardiovascular: Normal pulses, Regular rate/rhythm Gastrointestinal: Normal bowel sounds, Distended (obese), Tenderness (epigastric) Musculoskeletal: No clubbing Integumentary: No rashes Neurological: Normal speech, Normal tone - Studies Laboratory Data (last 24 hrs) 10/12/24 10/12/24 13:52 13:52 WBC 14.30 H Hgb 15.6 Hct 43.6 Plt Count 353 Sodium 131 L Potassium 5.4 H BUN 13 Creatinine 0.74 Glucose 445 H* Total Bilirubin 0.9 AST ALT Alkaline Phosphatase 122 H Lipase 3937 H <Love Cleveland - Last Filed: 10/13/24 06:51> Assessment and Plan - Plan Assessment and plan Acute on chronic pancreatitis secondary to hypertriglyceridemia Diabetes mellitusIDDM with hyperglycemia Hyponatremia secondary to dehydration - ICU admission - Aggressive IV fluids - Creon and Tricor daily -Pain control -Zofran - Evaluate triglycerides -Insulin gtt -BMP Q4h -Q1h glucose monitoring - Hypoglycemia protocol in place - Trend lipase and triglycerides daily - N.p.o. except meds MIRIAM - IV fluids same as above - Monitor in a.m. labs Hypothyroidism Hypertension - Continue home medications when taking p.o. DVT PPx heparin Full code LOS 2 to 3 days Discharge Plan: Home - Advance Directives Does patient have a Living Will: No Does patient have a Durable POA for Healthcare: No Time Spent Managing Pts Care (In Minutes): 60 <Love Cleveland - Last Filed: 10/13/24 06:51> Physician Review: Patient Assessed, Agree with Above Assessment and Plan <Schuyler Link - Last Filed: 10/14/24 06:33>
[2024-10-12] MEDS: HYDROMORPHONE HCL 1 MG/ML INJ IV PRN (19:17)
[2024-10-12] MEDS: ONDANSETRON 4 MG/2 ML VIAL IV PRN (19:17)
[2024-10-12 20:09] LABS: Anion Gap 14.8 mEq/L (5.0-15.0); BUN Blood Urea Nitrogen 9.0 mg/dL (7-18); Glucose Level 331.0 mg/dL (74-106)
[2024-10-12 20:13] LABS: Potassium 4.8 mEq/L (3.5-5.1)
[2024-10-12 20:18] LABS: HDL Cholesterol 27 mg/dL (40-60)
[2024-10-12] MEDS: HEPARIN 5000 UNIT/ML 1 ML VIAL SQ SCH (20:34)
[2024-10-12] MEDS: INSULIN REGULAR, HUMAN 100 UNIT in NA CHLORIDE 0.9% 100 ML IV SCH (20:34)
[2024-10-13 02:23] LABS: Anion Gap 16.0 mEq/L (5.0-15.0); BUN Blood Urea Nitrogen 7.0 mg/dL (7-18); Glucose Level 278.0 mg/dL (74-106); Potassium 4.0 mEq/L (3.5-5.1)
[2024-10-13] MEDS: D5 0.9 NS 1,000 ML IV SCH (02:43)
[2024-10-13 04:40] LABS: Absolute Lymphocytes (CBC) 2.2 K/uL (0.7-4.9); Hematocrit 42.9 % (39.6-49.0); Hemoglobin 14.4 g/dL (13.6-17.9); MCH 24.6 pg (27.0-35.0); MCHC 33.6 g/dL (32.0-36.0); MCV 73.3 fL (80-100); MPV 9.1 fL (7.6-11.3); Nucleated RBC Absolute Count 0.0 (0-0); Nucleated Red Blood Cells % 0.2 % (0-0); RBC Red Blood Cell Count 5.84 M/uL (4.33-5.43); White Blood Count 17.80 thou/uL (4.3-10.9)
[2024-10-13 05:08] LABS: Anion Gap 11.4 mEq/L (5.0-15.0); BUN Blood Urea Nitrogen 8.0 mg/dL (7-18); Glucose Level 252.0 mg/dL (74-106); Lipase 1024.0 U/L (13-75)
[2024-10-13 05:12] LABS: Magnesium 1.9 mg/dL (1.6-2.4); Potassium 4.4 mEq/L (3.5-5.1)
--- NOTE | 2024-10-13 06:53 | P.PN ---
Date of Service: 10/13/24 Subjective Continues to c/o epigastric pain overnight will attempt CLD today triglycerides slowly trending down ROS 10 point ROS as noted above, otherwise negative Physical Exam General: Alert and Oriented x3, NAD, afebrile HEENT: Atraumatic, Normocephalic Neck: JVD not distended Respiratory: Clear to auscultation bilaterally, Normal air movement Cardiovascular: Normal pulses, RRR, S1S2 present Gastrointestinal: Normal bowel sounds, Distended (obese), Tenderness (epigastric) Neurological: Normal speech, Normal tone Vitals Reviewed Problem list Acute on chronic pancreatitis secondary to hypertriglyceridemia Diabetes mellitusIDDM with hyperglycemia Hyponatremia secondary to dehydration MIRIAM Hypothyroidism Hypertension Assessment and Plan Acute on chronic pancreatitis secondary to hypertriglyceridemia Leukocytosis Diabetes mellitusIDDM with hyperglycemia Hyponatremia secondary to dehydration - ICU admission - Continue Aggressive IV fluids - Continue Creon and Tricor daily -Pain control -Continue Zofran PRN - Evaluate triglycerides - continue Insulin gtt until triglycerides are < 500 -BMP Q4h -Q1h glucose monitoring - Hypoglycemia protocol in place - Trend lipase and triglycerides daily - CLD -Collow Blood cultures Hypothyroidism Hypertension - Continue home medications DVT PPx heparin Full code LOS 2 to 3 days Discharge Plan: Home Time Spent Managing Pts Care (In Minutes): 35 <Love Cleveland - Last Filed: 10/13/24 10:54> I have personally seen and evaluated the patient. I have reviewed the history, physical exam findings, and assessment provided by Love Cleveland ELECTRIC METER REPAIRER APPRENTICE. I agree with the plan of care as documented <Schuyler Link - Last Filed: 10/13/24 16:12>
[2024-10-13] MEDS: LIPASE/PROTEASE/AMYLASE CAP PO SCH (08:57)
[2024-10-13] MEDS: FENOFIBRATE 160 MG TAB PO SCH (08:57)
[2024-10-13 09:51] LABS: Anion Gap 9.0 mEq/L (5.0-15.0); BUN Blood Urea Nitrogen 6.0 mg/dL (7-18); Glucose Level 268.0 mg/dL (74-106); Potassium 4.0 mEq/L (3.5-5.1)
[2024-10-13 13:41] LABS: Anion Gap 10.9 mEq/L (5.0-15.0); BUN Blood Urea Nitrogen 6.0 mg/dL (7-18); Glucose Level 287.0 mg/dL (74-106)
[2024-10-13 13:42] LABS: Potassium 3.9 mEq/L (3.5-5.1)
[2024-10-13 17:11] LABS: Anion Gap 7.7 mEq/L (5.0-15.0); BUN Blood Urea Nitrogen 6.0 mg/dL (7-18); Glucose Level 233.0 mg/dL (74-106)
[2024-10-13 17:12] LABS: Potassium 3.7 mEq/L (3.5-5.1)
[2024-10-13 22:58] LABS: Anion Gap 7.4 mEq/L (5.0-15.0); BUN Blood Urea Nitrogen 5.0 mg/dL (7-18); Glucose Level 240.0 mg/dL (74-106); Potassium 3.4 mEq/L (3.5-5.1)
[2024-10-13] MEDS: POTASSIUM CL SA 10 MEQ TAB PO ONE (23:13)
[2024-10-14 01:30] LABS: Anion Gap 7.7 mEq/L (5.0-15.0); BUN Blood Urea Nitrogen 7.0 mg/dL (7-18); Glucose Level 234.0 mg/dL (74-106)
[2024-10-14 01:40] LABS: Potassium 3.7 mEq/L (3.5-5.1)
[2024-10-14 04:50] LABS: Anion Gap 9.8 mEq/L (5.0-15.0); BUN Blood Urea Nitrogen 5.0 mg/dL (7-18); Glucose Level 210.0 mg/dL (74-106); Lipase 134.0 U/L (13-75); Potassium 3.8 mEq/L (3.5-5.1)
[2024-10-14 05:48] LABS: Magnesium 1.6 mg/dL (1.6-2.4)
--- NOTE | 2024-10-14 06:42 | P.PN ---
Date of Service: 10/14/24 Subjective Awake, reports tolerating CLD, will advance to FLD Triglycerides and lipase improving, will remain on insulin drip until tr iglycerides are less than 500 ROS 10 point ROS as noted above, otherwise negative Physical Exam General: AAO x3, NAD, afebrile HEENT: Atraumatic, Normocephalic Neck: JVD not distended Respiratory: Clear to auscultation bilaterally, Normal air movement Cardiovascular: NSR, S1S2 present Gastrointestinal: Normal bowel sounds, Distended (obese), Tenderness (epigastric) Neurological: Normal speech, Normal tone Vitals Reviewed Problem list Acute on chronic pancreatitis secondary to hypertriglyceridemia Diabetes mellitusIDDM with hyperglycemia Hyponatremia secondary to dehydration Hypothyroidism Hypertension Assessment and Plan Acute on chronic pancreatitis secondary to hypertriglyceridemia Leukocytosis Diabetes mellitusIDDM with hyperglycemia Hyponatremia secondary to dehydration - ICU admission - Continue Aggressive IV fluids - Continue Creon and Tricor daily - Pain control - Continue Zofran PRN - continue Insulin gtt until triglycerides are < 500 - BMP Q4h - Q1h glucose monitoring - Hypoglycemia protocol in place - Trend lipase and triglycerides daily - FLD - Collow Blood cultures Hypothyroidism Hypertension - Continue home medications DVT PPx heparin Full code LOS 2 to 3 days Discharge Plan: Home Time Spent Managing Pts Care (In Minutes): 36 <Love Cleveland - Last Filed: 10/14/24 10:38> I have personally seen and evaluated the patient. I have reviewed the history, physical exam findings, and assessment provided by Love Cleveland JUKE BOX SERVICER. I agree with the plan of care as documented <Schuyler Link - Last Filed: 10/14/24 16:54>
[2024-10-14 07:09] LABS: Absolute Lymphocytes (CBC) 3.0 K/uL (0.7-4.9); Hematocrit 38.2 % (39.6-49.0); Hemoglobin 12.4 g/dL (13.6-17.9); MCH 24.1 pg (27.0-35.0); MCHC 32.4 g/dL (32.0-36.0); MCV 74.4 fL (80-100); MPV 10.2 fL (7.6-11.3); Nucleated RBC Absolute Count 0.0 (0-0); Nucleated Red Blood Cells % 0.2 % (0-0); RBC Red Blood Cell Count 5.14 M/uL (4.33-5.43); White Blood Count 13.30 thou/uL (4.3-10.9)
[2024-10-14] MEDS: POTASSIUM CL SA 10 MEQ TAB PO ONE ×2 (08:52→17:46)
[2024-10-14] MEDS: MAGNESIUM SULFATE 1 gm IVPB 1 GM/100 ML BAG IV ONE (09:06)
[2024-10-14 09:54] LABS: Anion Gap 10.8 mEq/L (5.0-15.0); BUN Blood Urea Nitrogen 5.0 mg/dL (7-18); Glucose Level 214.0 mg/dL (74-106); Potassium 3.8 mEq/L (3.5-5.1)
[2024-10-14 14:04] LABS: Anion Gap 6.7 mEq/L (5.0-15.0); BUN Blood Urea Nitrogen 5.0 mg/dL (7-18); Glucose Level 280.0 mg/dL (74-106); Potassium 3.7 mEq/L (3.5-5.1)
[2024-10-14] MEDS: POTASSIUM 25 MEQ EFFERV TAB PO ONE (15:55)
[2024-10-14 17:43] LABS: Anion Gap 7.7 mEq/L (5.0-15.0); BUN Blood Urea Nitrogen 4.0 mg/dL (7-18); Glucose Level 204.0 mg/dL (74-106); Potassium 3.7 mEq/L (3.5-5.1)
[2024-10-14 21:51] LABS: Anion Gap 9.7 mEq/L (5.0-15.0); BUN Blood Urea Nitrogen 4.0 mg/dL (7-18); Glucose Level 222.0 mg/dL (74-106); Potassium 3.7 mEq/L (3.5-5.1)
[2024-10-15 02:04] LABS: Anion Gap 8.7 mEq/L (5.0-15.0); BUN Blood Urea Nitrogen 4.0 mg/dL (7-18); Glucose Level 191.0 mg/dL (74-106); Potassium 3.7 mEq/L (3.5-5.1)
[2024-10-15] MEDS: POTASSIUM CL SA 10 MEQ TAB PO ONE ×2 (02:11→02:13)
[2024-10-15 05:29] LABS: Absolute Lymphocytes (CBC) 3.1 K/uL (0.7-4.9); Hematocrit 36.4 % (39.6-49.0); Hemoglobin 11.7 g/dL (13.6-17.9); MCH 24.0 pg (27.0-35.0); MCHC 32.0 g/dL (32.0-36.0); MCV 74.9 fL (80-100); MPV 9.5 fL (7.6-11.3); Nucleated RBC Absolute Count 0.0 (0-0); Nucleated Red Blood Cells % 0.0 % (0-0); RBC Red Blood Cell Count 4.86 M/uL (4.33-5.43); White Blood Count 10.40 thou/uL (4.3-10.9)
[2024-10-15] MEDS: D5 0.45 NS 1,000 ML IV SCH (09:39)
[2024-10-15] MEDS: HYDROCODONE/APAP 5/325 MG TAB PO PRN (10:08)
[2024-10-15] MEDS: CALCIUM GLUCONATE 1 GM IVPB 1 GM/50 ML BAG IV ONE (10:50)
--- NOTE | 2024-10-15 17:07 | P.PN ---
Date of Service: 10/15/24 Subjective: Sitting upright in bed tolerating diet. We discussed transitioning off the insulin drip once his triglycerides are below 500. He denies any chest pain shortness of breath, fevers or chills Review of system 10 point ROS as noted above, otherwise negative Physical Exam General: AAO x3, NAD, afebrile HEENT: Atraumatic, Normocephalic Neck: JVD not distended Respiratory: Clear to auscultation bilaterally, Normal air movement Cardiovascular: NSR, S1S2 present Gastrointestinal: Normal bowel sounds, Distended (obese), Tenderness (epigastric) Neurological: Normal speech, Normal tone Vitals Reviewed Problem list Acute on chronic pancreatitis secondary to hypertriglyceridemia Diabetes mellitusIDDM with hyperglycemia Hyponatremia secondary to dehydration Hypothyroidism Hypertension Leukocytosis Assessment and Plan Acute on chronic pancreatitis secondary to hypertriglyceridemia Leukocytosis Diabetes mellitusIDDM with hyperglycemia Hyponatremia secondary to dehydration -Can downgrade to floor once off insulin -Lower rate of fluids. He is tolerating a diet - Continue Creon and Tricor daily - Pain control - Continue Zofran PRN - continue Insulin gtt until triglycerides are < 500 - BMP Q4h -Glucose monitoring ACHS - Hypoglycemia protocol in place - Trend lipase and triglycerides daily - follow Blood cultures - Leukocytosis resolved Hypothyroidism Hypertension - Continue home medications DVT PPx heparin Full code LOS 2 to 3 days Discharge Plan: Home
[2024-10-16 05:08] LABS: Absolute Lymphocytes (CBC) 3.1 K/uL (0.7-4.9); Hematocrit 36.6 % (39.6-49.0); Hemoglobin 12.2 g/dL (13.6-17.9); MCH 24.8 pg (27.0-35.0); MCHC 33.3 g/dL (32.0-36.0); MCV 74.4 fL (80-100); MPV 9.1 fL (7.6-11.3); Nucleated RBC Absolute Count 0.0 (0-0); Nucleated Red Blood Cells % 0.1 % (0-0); RBC Red Blood Cell Count 4.92 M/uL (4.33-5.43); White Blood Count 9.90 thou/uL (4.3-10.9)
--- NOTE | 2024-10-16 16:44 | P.PN ---
Date of Service: 10/17/19 Subjective: His IV blew out yesterday so he was not able to get insulin drip for quite some time. We discussed his elevated triglycerides and why he is still in the ICU. He is otherwise tolerating a diet. Does not have any pain with eating. He is moving his bowels regularly. Review of system 10 point ROS as noted above, otherwise negative Physical Exam General: AAO x3, NAD, afebrile HEENT: Atraumatic, Normocephalic Neck: JVD not distended Respiratory: Clear to auscultation bilaterally, Normal air movement Cardiovascular: NSR, S1S2 present Gastrointestinal: Normal bowel sounds, Distended (obese), Tenderness (epigastric) Neurological: Normal speech, Normal tone Vitals Reviewed Problem list Acute on chronic pancreatitis secondary to hypertriglyceridemia Diabetes mellitusIDDM with hyperglycemia Hyponatremia secondary to dehydration Hypothyroidism Hypertension Leukocytosis Assessment and Plan Acute on chronic pancreatitis secondary to hypertriglyceridemia Leukocytosis Diabetes mellitusIDDM with hyperglycemia Hyponatremia secondary to dehydration -Triglycerides remain elevated to 746 -Can downgrade to floor once off insulin -Lower rate of fluids. He is tolerating a diet - Continue Creon and Tricor daily - Pain control - Continue Zofran PRN - continue Insulin gtt until triglycerides are < 500 - BMP Q4h -Glucose monitoring ACHS - Hypoglycemia protocol in place - Trend lipase and triglycerides daily - follow Blood cultures - Leukocytosis resolved Hypothyroidism Hypertension - Continue home medications Leukocytosis resolved DVT PPx heparin Full code LOS 2 to 3 days Discharge Plan: Home
[2024-10-17] MEDS: NA CHLORIDE 0.9% 1,000 ML IV SCH (00:36)
[2024-10-17 05:09] LABS: Absolute Lymphocytes (CBC) 3.1 K/uL (0.7-4.9); Hematocrit 38.7 % (39.6-49.0); Hemoglobin 12.6 g/dL (13.6-17.9); MCH 24.1 pg (27.0-35.0); MCHC 32.6 g/dL (32.0-36.0); MCV 74.1 fL (80-100); MPV 9.0 fL (7.6-11.3); Nucleated RBC Absolute Count 0.0 (0-0); Nucleated Red Blood Cells % 0.1 % (0-0); RBC Red Blood Cell Count 5.22 M/uL (4.33-5.43); White Blood Count 9.20 thou/uL (4.3-10.9)
[2024-10-17 07:32] LABS: Anion Gap 9.5 mEq/L (5.0-15.0); BUN Blood Urea Nitrogen 7.0 mg/dL (7-18); Glucose Level 167.0 mg/dL (74-106); Magnesium 1.7 mg/dL (1.6-2.4); Potassium 3.5 mEq/L (3.5-5.1)
[2024-10-17] MEDS: LEVOTHYROXINE SOD 0.075 MG TAB PO SCH (08:53)
[2024-10-17] MEDS: POTASSIUM CL SA 10 MEQ TAB PO ONE (08:53)
[2024-10-17] MEDS ORDERED: HOME MED 1 EA UNK (Lipase/Protease/Amylase [Creon Dr 36,000 Unit Capsule] Capsule.Dr) PO SCH (09:00)
[2024-10-17] MEDS ORDERED: FENOFIBRATE 145 MG TAB PO SCH (09:00)
[2024-10-17 09:37] VITALS: O2SAT 100
--- NOTE | 2024-10-17 09:49 | P.PN ---
Subjective Date of Service: 10/17/24 Chief Complaint: Acute on chronic pancreatitis Subjective: Improving (Patient has mild postprandial pain but improving overall. He is still on insulin infusion due to elevated triglyceride. Lipase within normal limits.) Physical Examination - Vital Signs Temperature: 98.9 F Blood Pressure: 133/93 Pulse: 93 Respirations: 21 Pulse Ox (%): 95 - Physical Exam General: In no apparent distress, Obese (Morbidly obese) HEENT: Atraumatic, Normocephalic Respiratory: Clear to auscultation bilaterally, Normal air movement Cardiovascular: No edema, Normal pulses, Regular rate/rhythm, Normal S1 S2 Gastrointestinal: Soft and benign, Non-distended Neurological: Normal speech Assessment And Plan - Plan Assessment Patient is a 29-year-old male with known history of morbid obesity and chronic pancreatitis. Was admitted with another episode of pancreatitis, hyper glyceride induced pancreatitis. His lipase was roughly 4000 and triglyceride of 2700. He is in the ICU for insulin infusion. Patient's pancreatic enzymes are trending down, he is able to tolerate oral diet Acute on chronic pancreatitis secondary to hypertriglyceridemia Diabetes mellitusIDDM with hyperglycemia Hyponatremia secondary to dehydration Hypothyroidism Hypertension Leukocytosis Acute on chronic pancreatitis secondary to hypertriglyceridemia Leukocytosis Diabetes mellitusIDDM with hyperglycemia Hyponatremia secondary to dehydration Lipase within normal limits Triglyceride 839 Will continue insulin infusion until triglyceride dropped below 500 Continue current diet Creon with meals and fenofibrate Supportive care Hypothyroidism Hypertension Continue home regimen DVT PPx heparin Full code LOS 1 to 2 days Discharge Plan: Home Physician Review: Patient Assessed, Agree with Above Assessment and Plan
[2024-10-17] MEDS: LIPASE/PROTEASE/AMYLASE CAP PO SCH (12:24)
[2024-10-17] MEDS ORDERED: INSULIN REGULAR, HUMAN 100 UNIT in NA CHLORIDE 0.9% 100 ML IV SCH (13:00)
[2024-10-17] MEDS: INSULIN REGULAR, HUMAN 100 UNIT in NA CHLORIDE 0.9% 100 ML IV SCH (16:06)
[2024-10-17] MEDS: D5 0.9 NS 1,000 ML IV SCH (17:32)
[2024-10-17] MEDS: GABAPENTIN 300 MG CAP PO SCH (20:40)
[2024-10-18 05:56] LABS: Absolute Lymphocytes (CBC) 2.6 K/uL (0.7-4.9); Hematocrit 38.8 % (39.6-49.0); Hemoglobin 12.8 g/dL (13.6-17.9); MCH 24.4 pg (27.0-35.0); MCHC 32.8 g/dL (32.0-36.0); MCV 74.5 fL (80-100); MPV 8.9 fL (7.6-11.3); Nucleated RBC Absolute Count 0.0 (0-0); Nucleated Red Blood Cells % 0.2 % (0-0); RBC Red Blood Cell Count 5.22 M/uL (4.33-5.43); White Blood Count 9.00 thou/uL (4.3-10.9)
[2024-10-18 06:09] LABS: Magnesium 1.7 mg/dL (1.6-2.4)
[2024-10-18 06:14] LABS: Anion Gap 7.3 mEq/L (5.0-15.0); BUN Blood Urea Nitrogen 6.0 mg/dL (7-18); Glucose Level 98.0 mg/dL (74-106); Potassium 3.3 mEq/L (3.5-5.1)
[2024-10-18] MEDS: MAGNESIUM SULFATE 1 gm IVPB 1 GM/100 ML BAG IV ONE (06:24)
[2024-10-18] MEDS ORDERED: POTASSIUM 25 MEQ EFFERV TAB PO ONE (08:00)
[2024-10-18] MEDS: POTASSIUM CL SA 10 MEQ TAB PO ONE (08:40)
[2024-10-18] MEDS: D5 0.9 NS 1,000 ML IV SCH ×2 (08:47→16:50)
--- NOTE | 2024-10-18 10:03 | P.PN ---
Subjective Date of Service: 10/18/24 Chief Complaint: Acute on chronic pancreatitis Subjective: Improving (No acute events overnight. Triglyceride trending down. He will most likely be downgraded this afternoon) Physical Examination - Vital Signs Temperature: 97.0 F Blood Pressure: 124/48 Pulse: 89 Respirations: 16 Pulse Ox (%): 97 - Physical Exam General: In no apparent distress, Cooperative, Obese (Morbidly obese) HEENT: Atraumatic, Normocephalic Respiratory: Clear to auscultation bilaterally, Normal air movement Cardiovascular: No edema, Normal pulses, Regular rate/rhythm, Normal S1 S2 Gastrointestinal: Soft and benign, Non-distended Neurological: Normal speech Assessment And Plan - Plan Assessment Patient is a 29-year-old male with known history of morbid obesity and chronic pancreatitis. Was admitted with another episode of pancreatitis, hyper glyceride induced pancreatitis. His lipase was roughly 4000 and triglyceride of 2700. He is in the ICU for insulin infusion. Patient's pancreatic enzymes are trending down, he is able to tolerate oral diet Acute on chronic pancreatitis secondary to hypertriglyceridemia Diabetes mellitusIDDM with hyperglycemia Hypokalemia Hypothyroidism Hypertension Leukocytosisblood culture has been negative for 5 days Plan: Lipase within normal limits It was later determined that the insulin infusion rate was underdosed. This has been corrected Triglyceride now trending down, currently 711 Patient is tolerating a diabetic diet Creon with meals and fenofibrate He can be downgraded today at which point we will resume home regimen of scheduled insulin Repeat triglyceride level in the afternoon Replace potassium DVT PPx heparin Full code LOS: 1 day Discharge Plan: Home Physician Review: Patient Assessed, Agree with Above Assessment and Plan
[2024-10-18] MEDS: HEPARIN 5000 UNIT/ML 1 ML VIAL ONE (21:19)
[2024-10-19 05:37] LABS: Absolute Lymphocytes (CBC) 3.1 K/uL (0.7-4.9); Hematocrit 38.9 % (39.6-49.0); Hemoglobin 12.6 g/dL (13.6-17.9); MCH 24.1 pg (27.0-35.0); MCHC 32.4 g/dL (32.0-36.0); MCV 74.5 fL (80-100); MPV 9.1 fL (7.6-11.3); Nucleated RBC Absolute Count 0.0 (0-0); Nucleated Red Blood Cells % 0.1 % (0-0); RBC Red Blood Cell Count 5.22 M/uL (4.33-5.43); White Blood Count 9.00 thou/uL (4.3-10.9)
[2024-10-19 05:49] VITALS: BMI 48.9
[2024-10-19 06:16] LABS: ALT/SGPT 49.0 U/L (16-61); AST/SGOT 29.0 U/L (15-37); Albumin 2.5 g/dL (3.4-5.0); Albumin/Globulin Ratio 0.7 (1.1-1.8); Alkaline Phosphatase 102.0 U/L (45-117); Anion Gap 8.4 mEq/L (5.0-15.0); BUN Blood Urea Nitrogen 4.0 mg/dL (7-18); Globulin 3.8 g/dL (2.3-3.5); Glucose Level 78.0 mg/dL (74-106); Magnesium 1.7 mg/dL (1.6-2.4); Potassium 3.4 mEq/L (3.5-5.1)
[2024-10-19 08:05] LABS: Iron 43.0 ug/dL (65-175); Transferrin 238.0 mg/dL (200-360)
[2024-10-19 08:09] LABS: Ferritin 80.9 ng/mL (26-388)
--- NOTE | 2024-10-19 09:34 | RAD REPORT ---
EXAMINATION: CT ABDOMEN AND PELVIS WITH CONTRAST CLINICAL INDICATION: Abdominal pain TECHNIQUE: CT abdomen and pelvis was performed, after the administration of 100 cc Isovue-300.. Sagit ursula and coronal reconstructions were obtained. One or more of the following dose reduction techniques were used: Automated exposure control, adjustment of the mA and kV according to patient si ze, and iterative reconstruction. Unless otherwise specified, incidental findings do not require dedicated imaging follow-up. [id number]. Oral contrast was not given which limits evaluation of bowel and appendix. COMPARISON: .October 12, 2024 FINDINGS: Fatty 5liver. Liver is enlarged. Pancreas is mildly enlarged with mild to moderate stranding in the adjacent fat. No significant de dios e from from prior exam. No pseudocyst. Spleen, adrenals and kidneys unremarkable. Normal appendix No evidence of diverticulitis. : IMPRESSION: Mild to moderate pancreatitis
--- NOTE | 2024-10-19 09:54 | P.PN ---
Subjective Date of Service: 10/19/24 Chief Complaint: Acute on chronic pancreatitis Subjective: Improving (Patient triglyceride is trending down. However, he continues to have postprandial abdominal pain. Repeat CAT scan was ordered today.) Physical Examination - Vital Signs Temperature: 97.8 F Blood Pressure: 139/97 Pulse: 78 Respirations: 18 Pulse Ox (%): 93 - Physical Exam General: Alert, In no apparent distress, Cooperative, Obese (Morbidly obese) HEENT: Atraumatic, Normocephalic Respiratory: Clear to auscultation bilaterally, Normal air movement Cardiovascular: No edema, Normal pulses, Regular rate/rhythm, Normal S1 S2 Neurological: Normal speech Assessment And Plan - Plan Assessment Patient is a 29-year-old male with known history of morbid obesity and chronic pancreatitis. He was admitted with another episode of pancreatitis, hyper glyceride induced pancreatitis. His lipase was roughly 4000 and triglyceride of 2700. He is in the ICU for insulin infusion. Patient's pancreatic enzymes are trending down, he is able to tolerate oral diet Acute on chronic pancreatitis secondary to hypertriglyceridemia Diabetes mellitusIDDM with hyperglycemia Hypokalemia Hypothyroidism Hypertension Leukocytosisblood culture has been negative for 5 days Plan: Repeat CAT scan ordered today due to abdominal pain recurrence Follow lipase and lactic acid as well Continue insulin infusion until triglyceride less than 500. Current level 599 Can downgrade later today if triglyceride less than 500 Continue current diabetic diet Continue Creon with meals and fenofibrate DVT PPx heparin Full code LOS: 1 day Discharge Plan: Home Physician Review: Patient Assessed, Agree with Above Assessment and Plan
[2024-10-19 10:11] LABS: Absolute Lymphocytes (CBC) 3.4 K/uL (0.7-4.9); Hematocrit 40.3 % (39.6-49.0); Hemoglobin 13.3 g/dL (13.6-17.9); MCH 24.4 pg (27.0-35.0); MCHC 33.0 g/dL (32.0-36.0); MCV 74.1 fL (80-100); MPV 8.7 fL (7.6-11.3); Nucleated RBC Absolute Count 0.0 (0-0); Nucleated Red Blood Cells % 0.1 % (0-0); RBC Red Blood Cell Count 5.44 M/uL (4.33-5.43); White Blood Count 9.70 thou/uL (4.3-10.9)
[2024-10-19] MEDS: POTASSIUM CL SA 10 MEQ TAB PO ONE (15:23)
[2024-10-19] MEDS: HYDROMORPHONE HCL 1 MG/ML INJ IV PRN (15:24)
[2024-10-19] MEDS: D5W 1,000 ML IV SCH (19:00)
[2024-10-20 08:04] LABS: Absolute Lymphocytes (CBC) 3.0 K/uL (0.7-4.9); Hematocrit 40.0 % (39.6-49.0); Hemoglobin 12.8 g/dL (13.6-17.9); MCH 24.0 pg (27.0-35.0); MCHC 32.0 g/dL (32.0-36.0); MCV 75.0 fL (80-100); MPV 9.3 fL (7.6-11.3); Nucleated RBC Absolute Count 0.0 (0-0); Nucleated Red Blood Cells % 0.0 % (0-0); RBC Red Blood Cell Count 5.33 M/uL (4.33-5.43); White Blood Count 9.30 thou/uL (4.3-10.9)
[2024-10-20 08:06] VITALS: TEMP 97.2
[2024-10-20 08:17] LABS: Anion Gap 9.7 mEq/L (5.0-15.0); BUN Blood Urea Nitrogen 5.0 mg/dL (7-18); Glucose Level 107.0 mg/dL (74-106); Potassium 3.7 mEq/L (3.5-5.1)
--- NOTE | 2024-10-20 09:04 | P.DS ---
Admission Date: 10/12/24 Discharge Date: 10/20/24 Disposition: ROUTINE DISCHARGE Discharge Condition: GOOD Reason for Admission: Acute on chronic pancreatitis Hospital Course: Patient is a 29-year-old male with known history of morbid obesity and chronic pancreatitis. He was admitted with another episode of pancreatitis, hypertriglyceride-induced pancreatitis. His lipase was roughly 4000 and triglyceride of 2700. He was in the ICU for insulin infusion. Patient's pancreatic enzymes have normalized, he is able to tolerate oral diet. He stayed longer due to due to persistent elevated triglyceride. TG is now 339. Patient is medically cleared for discharge. Vital Signs/Physical Exam: Temp Pulse Resp BP Pulse Ox 97.2 F 81 18 135/91 H 97 10/20/24 08:00 10/20/24 08:00 10/20/24 08:57 10/20/24 08:00 10/20/24 08:57 General: Alert, In no apparent distress, Cooperative, Obese (morbidly obese) Respiratory: Clear to auscultation bilaterally, Normal air movement Cardiovascular: No edema, Normal pulses, Regular rate/rhythm, Normal S1 S2 Gastrointestinal: Soft and benign, Non-distended Neurological: Normal speech Laboratory Data at Discharge: WBC 9.30 thou/uL (4.3-10.9) 10/20/24 07:24 Hgb 12.8 g/dL (13.6-17.9) L 10/20/24 07:24 Hct 40.0 % (39.6-49.0) 10/20/24 07:24 Plt Count 267 thou/uL (152-406) 10/20/24 07:24 Sodium 139 mEq/L (136-145) 10/20/24 07:24 Potassium 3.7 mEq/L (3.5-5.1) 10/20/24 07:24 BUN 5 mg/dL (7-18) L 10/20/24 07:24 Creatinine 0.65 mg/dL (0.70-1.30) L 10/20/24 07:24 Glucose 107 mg/dL (74-106) H 10/20/24 07:24 Phosphorus 2.7 mg/dL (2.5-4.9) 10/19/24 05:06 Magnesium 1.7 mg/dL (1.6-2.4) 10/19/24 05:06 Total Bilirubin 0.3 mg/dL (0.2-1.0) 10/19/24 05:06 AST 29 U/L (15-37) 10/19/24 05:06 ALT 49 U/L (16-61) 10/19/24 05:06 Alkaline Phosphatase 102 U/L (45-117) 10/19/24 05:06 Triglycerides 366 mg/dL (<150) H 10/20/24 07:24 Cholesterol 291 mg/dL (<200) H 10/12/24 19:30 LDL Cholesterol Direct 95 mg/dL (100-129) L 10/12/24 19:30 HDL Cholesterol 27 mg/dL (40-60) L 10/12/24 19:30 Cholesterol/HDL Ratio 10.78 10/12/24 19:30 Lipase 35 U/L (13-75) 10/19/24 09:45 Home Medications: Gabapentin 300 mg PO BEDTIME 10/28/23 Insulin Glargine,Hum.rec.anlog [Lantus Solostar] 35 unit SQ DAILY 10/28/23 Insulin Regular, Human [Novolin R Flexpen] 18 units SQ TID 10/28/23 Levothyroxine Sodium [Unithroid] 80 mcg PO DAILY 10/13/24 Ondansetron [Zofran (Odt)*] 8 mg PO DAILY 10/13/24 Fenofibrate [Tricor*] 145 mg PO DAILY #30 tab 10/20/24 Lipase/Protease/Amylase [Leanna Prieto 12,000 Units Capsule] 1 cap PO TIDWM #30 cap 10/20/24 Lipase/Protease/Amylase [Leanna Prieto 36,000 Unit Capsule] 1 each PO DAILY #30 cap 10/20/24 New Medications: Lipase/Protease/Amylase [Leanna Prieto 12,000 Units Capsule] 1 cap PO TIDWM #30 cap Lipase/Protease/Amylase [Leanna Prieto 36,000 Unit Capsule] 1 each PO DAILY #30 cap Fenofibrate [Tricor*] 145 mg PO DAILY #30 tab Followup: Jani Sims PA [Primary Care Provider] -
[2024-10-20 12:30] VITALS: BP 142/99
== END 2024-10-20 13:16 | disposition home or self-care (01) | DRG 439 ==
LOC: ER 12:35 → ERHOLD 17:34 → 3RD-ICU 19:11
PROVIDERS: ADMIT Family Medicine; ATTEND Internal Medicine
DX: K85.90 Acute pancreatitis without necrosis or infection, unspecified (principal); E87.1 Hypo-osmolality and hyponatremia; Z68.42 Body mass index [BMI] 45.0-49.9, adult; N17.9 Acute kidney failure, unspecified; E66.01 Morbid (severe) obesity due to excess calories; E86.0 Dehydration; E78.1 Pure hyperglyceridemia; K86.1 Other chronic pancreatitis; E03.9 Hypothyroidism, unspecified; I10 Essential (primary) hypertension; E78.00 Pure hypercholesterolemia, unspecified; E11.65 Type 2 diabetes mellitus with hyperglycemia; Z79.4 Long term (current) use of insulin; Z79.890 Hormone replacement therapy; Z79.899 Other long term (current) drug therapy
CPT/HCPCS: 36415; 71045; 74177; 80048; 80053; 80061; 82330; 82728; 82947; 83540; 83605; 83690; 83735; 84100; 84466; 84478; 85025; 87040; 96361; 96374; 96375; 99285; J0612; J1171; J1644; J1815; J2405; J3475; J7030; J7042; J7799; Q9967